=== PATIENT | male | born 1935 | race Caucasian/White ===

== ENCOUNTER → 2016-08-23 | Outpatient (CLI) | payer BC ==
[~2016-08-23] MED LIST: ATOR-14 PO; INDA1TAB3 PO
[2016-08-23 10:28] LABS: HEMATOCRIT 40.4 % (42-52)
[2016-08-23 10:46] LABS: ESTIMATED AVERAGE GLUCOSE 137 mg/dl; HA1C FLAG Normal (Normal)
--- NOTE | 2016-08-29 11:15 | CODING QUERY MEDICAL NECESSITY ---
SUPPORTING DIAGNOSIS NEEDED Dr. Agarwal, A supporting diagnosis is required for the test/procedure performed on this patient in order for us to be reimbursed by the patient's insurance. Please provide a supporting diagnosis for the following test/procedure listed below next to the test name along with your signature. *If there is no additional diagnosis for this patient that would support the following test/procedure please document that below next to the test/procedure. Test(s)/Procedure(s) that require a supporting diagnosis: * [id number] GLYCATED HEMOGLOBIN DIAGNOSIS: DATE OF SERVICE: 08/23/16 Provider Signature: Date: Thank you Colton [facility] Information Management Once completed, please kindly fax back to [phone] For questions please call [phone]
== END | disposition home or self-care (01) ==
LOC: C.LAB1850 09:09
PROVIDERS: ATTEND Internal Medicine
DX: E78.5 Hyperlipidemia, unspecified (principal); R73.9 Hyperglycemia, unspecified

== ENCOUNTER → 2016-11-21 | Outpatient (CLI) | payer BC ==
[2016-11-21 10:39] LABS: BASO % 0.3 %; BASO ABS # 0.02 K/uL (0-0.2); COMPLETE YES; EOS % 2.9 %; HEMATOCRIT 39.9 % (42-52); IG% 0.1 %; LYMPH % 39.5 %; LYMPH ABS # 2.95 K/uL (1.2-3.4); MEAN CELL VOLUME 97.3 fL (80-100); MEAN CORPUSCULAR HEMOGLOBIN 32.4 pg (25-34); MEAN CORPUSCULAR HGB CONC 33.3 g/dl (32-36); NEUT % 48.2 %; PLATELET COUNT 121 K/uL (130-400); WHITE BLOOD COUNT 7.47 K/uL (4.8-10.8)
[2016-11-21 11:16] LABS: ALT/SGPT 28 U/L (12-78); AST/SGOT 35 U/L (15-37); BLOOD UREA NITROGEN 23 mg/dl (7-18); BUN/CREATININE RATIO 14.7 (10-20); CALCIUM 8.5 mg/dl (8.5-10.1); CARBON DIOXIDE 31 mmol/L (21-32); CHLORIDE 107 mmol/L (98-107); GLUCOSE 107 mg/dl (70-99); POTASSIUM 4.1 mmol/L (3.5-5.1); SODIUM 143 mmol/L (136-145)
[2016-11-21 11:27] LABS: CHOLESTEROL 131 mg/dl (0-200); CHOLESTEROL/HDL RATIO 2.8; HDL CHOLESTEROL 46 mg/dl; LDL CHOLESTEROL CALCULATED 65 mg/dl; TRIGLYCERIDES 99 mg/dl (0-150); VERY LOW DENSITY LIPOPROT CALC 20 mg/dl
[2016-11-21 11:33] LABS: ESTIMATED AVERAGE GLUCOSE 137 mg/dl; HA1C FLAG Normal (Normal)
[2016-11-21 12:16] LABS: URINE APPEARANCE CLEAR (CLEAR); URINE BILIRUBIN NEG (NEG); URINE COLOR YELLOW; URINE EPITHELIAL CELL AUTO 0-5 /lpf (0-5); URINE NITRITE NEG (NEG); URINE SPECIFIC GRAVITY 1.013 (1.000-1.030); UROBILINOGEN NEG (NEG)
[2016-11-21 12:21] LABS: MANUAL MICROSCOPIC REQUIRED? NO; REVIEW REQ? NO
--- NOTE | 2016-11-29 06:18 | CODING QUERY MEDICAL NECESSITY ---
CQSUPPORTING DIAGNOSIS NEEDED A supporting diagnosis is required for the test/procedure performed on this patient in order for us to be reimbursed by the patient's insurance. Please provide a supporting diagnosis for the following test/procedure listed below next to the test name along with your signature. *If there is no additional diagnosis for this patient that would support the following test/procedure please document that below next to the test/procedure. Test(s)/Procedure(s) that require a supporting diagnosis: MAHAMED 11/21/16 GLYCATED HEMOGLOBIN TEST Provider Signature: Date: Thank you Est[facility] Information [facility] Once completed, please kindly fax back to [phone] For questions please call [phone]
== END | disposition home or self-care (01) ==
LOC: C.LAB1850 09:39
PROVIDERS: ATTEND Internal Medicine
DX: E78.5 Hyperlipidemia, unspecified (principal); R73.9 Hyperglycemia, unspecified

== ENCOUNTER → 2017-05-30 | Outpatient (CLI) | payer BC ==
[2017-05-30 12:19] LABS: BASO % 0.4 %; BASO ABS # 0.03 K/uL (0-0.2); EOS % 2.5 %; EOS ABS # 0.19 K/uL (0-0.5); HEMATOCRIT 41.6 % (42-52); HEMOGLOBIN 13.9 g/dL (14.0-18.0); IG# 0.02 K/uL (0.00-0.02); LYMPH ABS # 3.58 K/uL (1.2-3.4); MEAN CELL VOLUME 98.1 fL (80-100); MEAN CORPUSCULAR HEMOGLOBIN 32.8 pg (25-34); MEAN CORPUSCULAR HGB CONC 33.4 g/dl (32-36); MEAN PLATELET VOLUME 11.4 fL (7.4-10.4); MONO % 8.8 %; MONO ABS # 0.67 K/uL (0.11-0.59); NEUT ABS # 3.12 K/uL (1.4-6.5); PLATELET COUNT 122 K/uL (130-400); RED CELL DISTRIBUTION WIDTH CV 15.6 % (11.5-14.5); RED CELL DISTRIBUTION WIDTH SD 55.4 fL (36.4-46.3); WHITE BLOOD COUNT 7.61 K/uL (4.8-10.8)
[2017-05-30 12:35] LABS: HEMOGLOBIN A1C 6.3 % (4.5-5.6)
[2017-05-30 12:54] LABS: ALT/SGPT 25 U/L (12-78); AST/SGOT 25 U/L (15-37); BLOOD UREA NITROGEN 32 mg/dl (7-18); CALCIUM 8.9 mg/dl (8.5-10.1); CARBON DIOXIDE 28 mmol/L (21-32); CHOLESTEROL 124 mg/dl (0-200); CREATININE 1.64 mg/dl (0.60-1.40); GLUCOSE 109 mg/dl (70-99); LDL CHOLESTEROL CALCULATED 54 mg/dl; POTASSIUM 4.4 mmol/L (3.5-5.1); SODIUM 139 mmol/L (136-145)
== END | disposition home or self-care (01) ==
LOC: C.LAB1850 10:26
PROVIDERS: ATTEND Internal Medicine
DX: E78.5 Hyperlipidemia, unspecified (principal)

== ENCOUNTER 2018-08-08 20:26 | Inpatient (IN) ==
[2018-08-08 21:06] LABS: Basophils # (auto) 0.05 K/uL (0-0.2); Basophils % (auto) 0.5 %; Eosinophils # (auto) 0.08 K/uL (0-0.5); Eosinophils % (auto) 0.8 %; Hematocrit (blood only) 42.7 % (42-52); Hemoglobin 14.4 g/dL (14.0-18.0); Immature Granulocytes # (auto) 0.03 K/uL (0.00-0.02); Immature Granulocytes % (auto) 0.3 %; Lymphocytes # (auto) 1.82 K/uL (1.2-3.4); Lymphocytes % (auto) 18.6 %; Mean Corpuscular Hgb Conc 33.7 g/dL (32-36); Mean Corpuscular Volume 96.4 fL (80-100); Mean Platelet Volume 10.6 fL (7.4-10.4); Monocytes # (auto) 0.58 K/uL (0.11-0.59); Monocytes % (auto) 5.9 %; Neutrophils # (auto) 7.25 K/uL (1.4-6.5); Neutrophils % (auto) 73.9 %; Platelet Count 129 K/uL (130-400); RDW Coefficient of Variation 14.7 % (11.5-14.5); RDW Standard Deviation 51.3 fL (36.4-46.3); Red Blood Count 4.43 M/uL (4.7-6.1); White Blood Count 9.81 K/uL (4.8-10.8)
[2018-08-08 21:13] LABS: Albumin Level 4.2 gm/dl (3.4-5.0); BUN Creatinine Ratio 21.9 (10-20); Calcium 8.9 mg/dl (8.5-10.1); Creatinine Clr Calc Pharmacy 34.8 ml/min; Est GFR (African American) 37.7; Est GFR (Non-African American) 32.5; Magnesium 2.2 mg/dl (1.8-2.4); Potassium 4.5 mmol/L (3.5-5.1)
--- NOTE | 2018-08-08 21:14 | XRay Report ---
XR chest 1V portable CLINICAL HISTORY: palpitations chest pain COMPARISON STUDY: No previous studies for comparison. FINDINGS: The bones soft tissues and hemidiaphragms are normal. The cardiomediastinal silhouette is n ormal. The lungs are clear. The pulmonary vasculature is normal. IMPRESSION: Negative chest. The above report was generated using voice recognition software. It may contain grammatical, syntax or spelling errors. Electronically signed by: Sukumar Harding M.D. 08/08/2018 9:13 PM
[2018-08-08] MEDS ORDERED: SODIUM CHLORIDE 0.9% 500 ML IV ONE (21:20)
[2018-08-08 21:30] LABS: Albumin Globulin Ratio 1.1 (0.9-2); Globulin 3.7 gm/dl (2.5-4.0); Total Protein 7.9 gm/dl (6.4-8.2); Troponin I 0.087 ng/ml (0-0.045)
[2018-08-08 21:55] LABS: D Dimer 470 ug/L FEU (0-500)
[2018-08-08] MEDS ORDERED: ADENOSINE IV SOLN 3 MG/ML 2 ML VIAL IV STA (22:01)
--- NOTE | 2018-08-08 22:40 | Emergency Department Note ---
Entered by Ja Dutton acting as a scribe for History of Present Illness General Chief complaint: Tachycardia Stated complaint: ELEVATED PULSE Time Seen by Provider: 08/08/18 20:54 Source: patient Limitations: no limitations History of Present Illness Provider complaint: weakness/Tachycardia Onset (ago): hour(s) Location: chest Pain Consistency: + constant Quality: + other (tachycardia) Associated symptoms: + shortness of breath and + weakness Treatments prior to arrival: none The patient is an 83 year old male who presents to the Emergency Room with complaints of constant tachycardia that began this afternoon, a few hours ago. The patient states that over the past couple of days he noticed unusual shortness of breath and fatigue after minimal exertion such as walking up the stairs. This is unusual for him. After eating lunch this afternoon he began to feel generally unwell. A short time after lunch he went outside to do some yard work. He states that he was carrying some sticks around the yard when he began to feel unusual weakness in his legs as well as some shortness of breath. He adds that he would have normally been able to perform these tasks without any trouble. When he went back inside he noticed that his heart rate was unusually fast. He has no history of heart trouble or issues with tachycardia. The patient denies any associated lightheadedness or dizziness. He has not experienced any chest pain or chest pressure. Home Medications Home Medications Medication Instructions Recorded Confirmed Type antiox. [id number] 1 tab PO QAM 08/08/18 08/08/18 History [I-Caps] atorvastatin 20 mg PO HS 08/08/18 08/08/18 History indapamide 1.25 mg PO QAM 08/08/18 08/08/18 History Allergies Allergy/AdvReac Type Severity Reaction Status Date / Time Sulfa (Sulfonamide Allergy Intermediate HIVES Verified 08/08/18 21:35 Antibiotics) Past Med/Surg History Medical History Atrial fibrillation Hyperlipidemia (Chronic) Benign essential hypertension (Chronic) Atrial flutter (Acute) CLL (chronic lymphocytic leukemia) Hemorrhoids Social History Communication Ability: Effective Beliefs That Will Affect Care: None Current Living Situation: Alone current occupational status: retired Other Information That Helps Us Care for You: No Feels Safe at Home: Yes Safety Concerns: Feels Safe At This Time Smoking Status: Never smoker Hx Alcohol Use: Yes Hx Substance Use: No Review of Systems See HPI for pertinent positives & negatives. and A total of 10 systems reviewed and were otherwise negative Physical Exam Vital Signs Vital Signs - 24 hr 08/08/18 20:30 08/08/18 20:34 08/08/18 22:24 Temperature 36.5 C Temperature Source Oral Sepsis Recent Fever Within 48 Hours No Sepsis New/Unexplained Change in Mental Status No Sepsis Action Taken by Nursing No Action Required Pulse Rate 130 H Pulse Rate [Right] 126 H Pulse Rhythm Regular Pulse Rhythm [Right] Regular Pulse Strength Normal Pulse Strength [Right] Normal Respiratory Rate 19 18 Respiratory Effort / Characteristics Non-Labored Spontaneous Non-Labored Spontaneous Respiratory Depth Normal Normal Respiratory Pattern Regular Blood Pressure 141/73 H Blood Pressure [Left Arm] Blood Pressure [Right Arm] 162/101 H Blood Pressure Mean 95 Blood Pressure Mean [Left Arm] Blood Pressure Mean [Right Arm] 121 Blood Pressure Position Sitting Blood Pressure Position [Left Arm] Blood Pressure Position [Right Arm] Pulse Oximetry 97 98 Oxygen Delivery Method Room Air Room Air Nasal Cannula Oxygen Flow Rate 2 08/08/18 23:00 08/09/18 00:09 08/09/18 00:45 Temperature Temperature Source Sepsis Recent Fever Within 48 Hours Sepsis New/Unexplained Change in Mental Status Sepsis Action Taken by Nursing Pulse Rate Pulse Rate [Right] 126 H 128 H 128 H Pulse Rhythm Pulse Rhythm [Right] Regular Pulse Strength Pulse Strength [Right] Normal Respiratory Rate 16 20 16 Respiratory Effort / Characteristics Non-Labored Spontaneous Non-Labored Spontaneous Respiratory Depth Normal Normal Normal Respiratory Pattern Regular Blood Pressure Blood Pressure [Left Arm] Blood Pressure [Right Arm] 146/87 H 123/79 120/81 Blood Pressure Mean Blood Pressure Mean [Left Arm] Blood Pressure Mean [Right Arm] 106 93 94 Blood Pressure Position Blood Pressure Position [Left Arm] Blood Pressure Position [Right Arm] Pulse Oximetry 98 98 98 Oxygen Delivery Method Room Air Nasal Cannula Room Air Oxygen Flow Rate 2 08/09/18 01:00 08/09/18 01:27 08/09/18 02:16 Temperature 36.8 C Temperature Source Oral Sepsis Recent Fever Within 48 Hours Sepsis New/Unexplained Change in Mental Status Sepsis Action Taken by Nursing Pulse Rate 132 H Pulse Rate [Right] 135 H Pulse Rhythm Pulse Rhythm [Right] Irregular Pulse Strength Pulse Strength [Right] Normal Respiratory Rate 16 Respiratory Effort / Characteristics Non-Labored Respiratory Depth Normal Respiratory Pattern Blood Pressure 116/73 Blood Pressure [Left Arm] Blood Pressure [Right Arm] 155/91 H 87/60 L Blood Pressure Mean Blood Pressure Mean [Left Arm] Blood Pressure Mean [Right Arm] 112 69 Blood Pressure Position Blood Pressure Position [Left Arm] Blood Pressure Position [Right Arm] Lying Pulse Oximetry 94 Oxygen Delivery Method Room Air Oxygen Flow Rate 08/09/18 02:30 08/09/18 03:15 08/09/18 03:48 Temperature 36.9 C Temperature Source Oral Sepsis Recent Fever Within 48 Hours Sepsis New/Unexplained Change in Mental Status Sepsis Action Taken by Nursing Pulse Rate Pulse Rate [Right] 136 H Pulse Rhythm Pulse Rhythm [Right] Pulse Strength Pulse Strength [Right] Respiratory Rate 15 Respiratory Effort / Characteristics Respiratory Depth Respiratory Pattern Blood Pressure Blood Pressure [Left Arm] Blood Pressure [Right Arm] 106/77 120/48 L 83/59 L Blood Pressure Mean Blood Pressure Mean [Left Arm] Blood Pressure Mean [Right Arm] 86 72 67 Blood Pressure Position Blood Pressure Position [Left Arm] Blood Pressure Position [Right Arm] Lying Pulse Oximetry 93 Oxygen Delivery Method Room Air Oxygen Flow Rate 08/09/18 04:00 08/09/18 04:15 08/09/18 04:30 Temperature Temperature Source Sepsis Recent Fever Within 48 Hours Sepsis New/Unexplained Change in Mental Status Sepsis Action Taken by Nursing Pulse Rate Pulse Rate [Right] Pulse Rhythm Pulse Rhythm [Right] Pulse Strength Pulse Strength [Right] Respiratory Rate Respiratory Effort / Characteristics Respiratory Depth Respiratory Pattern Blood Pressure Blood Pressure [Left Arm] Blood Pressure [Right Arm] 104/67 98/57 L 99/77 L Blood Pressure Mean Blood Pressure Mean [Left Arm] Blood Pressure Mean [Right Arm] 79 70 84 Blood Pressure Position Blood Pressure Position [Left Arm] Blood Pressure Position [Right Arm] Pulse Oximetry Oxygen Delivery Method Oxygen Flow Rate 08/09/18 04:45 08/09/18 05:15 08/09/18 06:00 Temperature Temperature Source Sepsis Recent Fever Within 48 Hours Sepsis New/Unexplained Change in Mental Status Sepsis Action Taken by Nursing Pulse Rate Pulse Rate [Right] Pulse Rhythm Pulse Rhythm [Right] Pulse Strength Pulse Strength [Right] Respiratory Rate Respiratory Effort / Characteristics Respiratory Depth Respiratory Pattern Blood Pressure Blood Pressure [Left Arm] Blood Pressure [Right Arm] 103/65 86/55 L 95/59 L Blood Pressure Mean Blood Pressure Mean [Left Arm] Blood Pressure Mean [Right Arm] 77 65 71 Blood Pressure Position Blood Pressure Position [Left Arm] Blood Pressure Position [Right Arm] Pulse Oximetry Oxygen Delivery Method Oxygen Flow Rate 08/09/18 06:30 08/09/18 07:06 08/09/18 07:35 Temperature 37.2 C Temperature Source Oral Sepsis Recent Fever Within 48 Hours Sepsis New/Unexplained Change in Mental Status Sepsis Action Taken by Nursing Pulse Rate Pulse Rate [Right] 115 H 118 H Pulse Rhythm Pulse Rhythm [Right] Pulse Strength Pulse Strength [Right] Respiratory Rate 18 Respiratory Effort / Characteristics Respiratory Depth Respiratory Pattern Blood Pressure Blood Pressure [Left Arm] Blood Pressure [Right Arm] 115/79 82/55 L 102/76 Blood Pressure Mean Blood Pressure Mean [Left Arm] Blood Pressure Mean [Right Arm] 91 64 84 Blood Pressure Position Blood Pressure Position [Left Arm] Blood Pressure Position [Right Arm] Lying Lying Pulse Oximetry 97 Oxygen Delivery Method Room Air Oxygen Flow Rate 08/09/18 08:00 08/09/18 09:00 08/09/18 10:00 Temperature Temperature Source Sepsis Recent Fever Within 48 Hours Sepsis New/Unexplained Change in Mental Status Sepsis Action Taken by Nursing Pulse Rate 126 H Pulse Rate [Right] 122 H 128 H 127 H Pulse Rhythm Pulse Rhythm [Right] Irregular Irregular Irregular Pulse Strength Pulse Strength [Right] Normal Normal Normal Respiratory Rate 18 Respiratory Effort / Characteristics Non-Labored Spontaneous Respiratory Depth Normal Respiratory Pattern Regular Blood Pressure Blood Pressure [Left Arm] 106/82 110/78 116/61 Blood Pressure [Right Arm] Blood Pressure Mean Blood Pressure Mean [Left Arm] 90 88 79 Blood Pressure Mean [Right Arm] Blood Pressure Position Blood Pressure Position [Left Arm] Sitting Blood Pressure Position [Right Arm] Pulse Oximetry Oxygen Delivery Method Room Air Oxygen Flow Rate 08/09/18 12:53 Temperature 36.3 C L Temperature Source Oral Sepsis Recent Fever Within 48 Hours Sepsis New/Unexplained Change in Mental Status Sepsis Action Taken by Nursing Pulse Rate Pulse Rate [Right] 120 H Pulse Rhythm Pulse Rhythm [Right] Pulse Strength Pulse Strength [Right] Respiratory Rate 15 Respiratory Effort / Characteristics Respiratory Depth Respiratory Pattern Blood Pressure Blood Pressure [Left Arm] 130/84 Blood Pressure [Right Arm] Blood Pressure Mean Blood Pressure Mean [Left Arm] 99 Blood Pressure Mean [Right Arm] Blood Pressure Position Blood Pressure Position [Left Arm] Sitting Blood Pressure Position [Right Arm] Pulse Oximetry 97 Oxygen Delivery Method Room Air Oxygen Flow Rate GENERAL: alert, well appearing, well nourished, no distress, non-toxic EYE EXAM: normal conjunctiva, PERRL and EOM's grossly intact OROPHARYNX: no exudate, no erythema, lips, buccal mucosa, and tongue normal and mucous membranes are moist NECK: supple, no nuchal rigidity, no adenopathy, non-tender LUNGS: Clear to auscultation. Normal chest wall mechanics HEART: Tachycardic and regular. No murmurs, S1 normal and S2 normal ABDOMEN: abdomen soft, non-tender, normo-active bowel sounds, no masses, no rebound or guarding. BACK: Back is symmetrical on inspection and there is no deformity, no midline tenderness, no CVA tenderness. SKIN: no rashes and no bruising UPPER EXTREMITIES: upper extremities are grossly normal. FROM, nml pulses b/l. LOWER EXTREMITIES: No pitting edema. FROM, nml pulses b/l. NEURO EXAM: Normal sensorium, cranial nerves II-XII grossly intact, normal speech, no gross weakness of arms, no gross weakness of legs. Course 2100: Past medical records reviewed. The patient was evaluated in room A9A, and a complete history and physical examination were performed. 2203: I administered adenosine at this time. Pt given 6 mg which only slowed HR into 80's and then 12 mg which slowed further and on tele pt had appearance of flutter waves. HR then became increased again, initially into 140's and then back to 128-130. 2235: Discussed with pt need for rate control, cardiology eval, and monitoring given elevated troponin. Pt verbalized understanding and was in agreement with plan. 2250: Discussed with Dr. Esparza. Agrees with cardizem drip, no bolus. Recommends eliquis 2.5 mg BID. Echo to be done in the morning. 2340: Pt well appearing. HR still elevated, will increase cardizem drip. Consultations Consultation #1: Discussed with Dr. Esparza. Time: 22:50 Administered Medications Apixaban (Eliquis) 2.5 mg PO BID NELLI Stop: 09/07/18 23:14 Last Admin: 08/09/18 09:35 Dose: 2.5 mg Documented by: [id number] Admin: 08/09/18 00:09 Dose: 2.5 mg Documented by: [id number] Diltiazem HCl 125 mg/ Dextrose 125 mls @ 0 mls/hr IV .Q0M NELLI; Protocol Stop: 09/07/18 22:29 Last Titration: 08/09/18 05:53 Dose: 0 mg/hr, 0 mls/hr Documented by: [id number] Titration: 08/09/18 05:15 Dose: 0 mg/hr, 0 mls/hr Documented by: [id number] Titration: 08/09/18 03:45 Dose: 5 mg/hr, 5 mls/hr Documented by: [id number] Titration: 08/09/18 03:00 Dose: 10 mg/hr, 10 mls/hr Documented by: [id number] Titration: 08/09/18 02:15 Dose: 5 mg/hr, 5 mls/hr Documented by: [id number] Admin: 08/09/18 00:05 Dose: 15 mg/hr, 15 mls/hr Documented by: [id number] Cosigned by: [id number] Titration: 08/09/18 00:05 Dose: 10 mg/hr, 10 mls/hr Documented by: [id number] Cosigned by: [id number] Titration: 08/08/18 23:34 Dose: 10 mg/hr, 10 mls/hr Documented by: [id number] Admin: 08/08/18 23:01 Dose: 5 mg/hr, 5 mls/hr Documented by: [id number] Cosigned by: [id number] Sodium Chloride (Nss 1000ml) 1,000 mls @ 80 mls/hr IV .[id number] NELLI Stop: 08/10/18 01:10 Last Admin: 08/09/18 14:02 Dose: 80 mls/hr Documented by: [id number] Infusion: 08/09/18 13:51 Dose: 80 mls/hr Documented by: [id number] Infusion: 08/09/18 07:00 Dose: 80 mls/hr Documented by: [id number] Admin: 08/09/18 01:20 Dose: 80 mls/hr Documented by: [id number] Amiodarone HCl/Dextrose (Nexterone / D5w) 360 mg in 200 mls @ 16.7 mls/hr IV .[id number] NELLI Stop: 09/08/18 05:44 Last Infusion: 08/09/18 07:00 Dose: 16.7 mls/hr Documented by: [id number] Cosigned by: [id number] Admin: 08/09/18 04:45 Dose: 16.7 mls/hr Documented by: [id number] Cosigned by: [id number] Calcium Gluconate 1,000 mg/ (Sodium Chloride) 60 mls @ 240 mls/hr IV TODAY@1100 NELLI Stop: 09/08/18 10:59 Last Infusion: 08/09/18 11:22 Dose: 0 mls/hr Documented by: [id number] Admin: 08/09/18 11:07 Dose: 240 mls/hr Documented by: [id number] Indapamide (Lozol) 1.25 mg PO QAM NELLI Stop: 09/08/18 08:59 Last Admin: 08/09/18 09:38 Dose: Not Given Documented by: [id number] Psyllium Hydrophilic Mucilloid (Metamucil) 1 pkt PO DAILY PRN PRN Reason: Constipation Stop: 09/08/18 09:35 Last Admin: 08/09/18 10:42 Dose: 1 pkt Documented by: [id number] Discontinued Medications Adenosine (Adenosine) 6 mg IV NOW STA Stop: 08/08/18 22:02 Last Admin: 08/08/18 22:24 Dose: 6 mg Documented by: [id number] Sodium Chloride (Nss) 500 mls @ 999 mls/hr IV .Q31M ONE Stop: 08/08/18 21:50 Last Infusion: 08/08/18 21:52 Dose: 0 mls/hr Documented by: [id number] Admin: 08/08/18 21:21 Dose: 999 mls/hr Documented by: [id number] Metoprolol Tartrate (Lopressor) 2.5 mg IV NOW STA Stop: 08/09/18 01:15 Last Admin: 08/09/18 01:27 Dose: 2.5 mg Documented by: [id number] Medical Decision Making Differential Diagnosis Differential diagnosis: Etiologies such as shingles, musculoskeletal pain, pericarditis, myocarditis, cardiac ischemia, pericardial tamponade, pneumonia, pneumothorax, pleural effusion, hemothorax, pleurisy, aortic pathology, pulmonary embolism, intra- abdominal process, as well as others were considered. Medical Records Attestation: I reviewed the patient's medical records. Home Medications Current Medication List: was personally reviewed by me Laboratory Data Attestation: I reviewed the patient's lab results. Result diagrams: 08/09/18 07:57 08/09/18 01:42 Lab Results 08/08/18 08/08/18 08/08/18 Range/Units 20:40 20:40 20:40 WBC 9.81 (4.8-10.8) K/uL RBC 4.43 L (4.7-6.1) M/uL Hgb 14.4 (14.0-18.0) g/dL Hct 42.7 (42-52) % MCV 96.4 (80-100) fL MCH 32.5 (25-34) pg MCHC 33.7 (32-36) g/dL RDW Std Deviation 51.3 H (36.4-46.3) fL RDW Coeff of Gilbert 14.7 H (11.5-14.5) % Plt Count 129 L (130-400) K/uL MPV 10.6 H (7.4-10.4) fL Immature Gran % (Auto) 0.3 % Neut % (Auto) 73.9 % Lymph % (Auto) 18.6 % [place] % (Auto) 5.9 % Eos % (Auto) 0.8 % Baso % (Auto) 0.5 % Immature Gran # (Auto) 0.03 H (0.00-0.02) K/uL Neut # (Auto) 7.25 H (1.4-6.5) K/uL Lymph # (Auto) 1.82 (1.2-3.4) K/uL [place] # (Auto) 0.58 (0.11-0.59) K/uL Eos # (Auto) 0.08 (0-0.5) K/uL Baso # (Auto) 0.05 (0-0.2) K/uL PT (9.0-12.0) Seconds INR (0.9-1.1) D-Dimer 470 (0-500) ug/L FEU Sodium 138 (136-145) mmol/L Potassium 4.5 (3.5-5.1) mmol/L Chloride 104 (98-107) mmol/L Carbon Dioxide 29 (21-32) mmol/L Anion Gap 5.0 (3-11) BUN 41 H (7-18) mg/dl Creatinine 1.87 H (0.6-1.4) mg/dl Est Cr Clr Drug Dosing 34.8 ml/min Est GFR ( Amer) 37.7 Est GFR (Non-Af Amer) 32.5 BUN/Creatinine Ratio 21.9 H (10-20) Glucose 191 H (70-99) mg/dl Estimat Average Glucose mg/dl Hemoglobin A1c (4.5-5.6) % Calcium 8.9 (8.5-10.1) mg/dl Ionized Calcium (1.12-1.32) mmol/L Magnesium 2.2 (1.8-2.4) mg/dl Total Bilirubin 1.0 (0.2-1) mg/dl AST 34 (15-37) U/L ALT 25 (12-78) U/L Alkaline Phosphatase 105 (45-117) U/L Troponin I 0.087 H* (0-0.045) ng/ml NT-Pro-B Natriuret Pep 1203 (0-1800) pg/ml Total Protein 7.9 (6.4-8.2) gm/dl Albumin 4.2 (3.4-5.0) gm/dl Globulin 3.7 (2.5-4.0) gm/dl Albumin/Globulin Ratio 1.1 (0.9-2) Lipase 237 (73-393) U/L TSH 3.350 (0.300-4.500) uIu/ml Urine Color Urine Appearance (Clear) Urine pH (4.5-7.5) Ur Specific [place] (1.000-1.030) Urine Protein (Negative) Urine Glucose (UA) (Negative) Urine Ketones (Negative) Urine Blood (Negative) Urine Nitrite (Negative) Urine Bilirubin (Negative) Urine Urobilinogen (Negative) Ur Leukocyte Esterase (Negative) 08/09/18 08/09/18 08/09/18 Range/Units 01:42 01:42 01:42 WBC 10.13 (4.8-10.8) K/uL RBC 4.07 L (4.7-6.1) M/uL Hgb 13.1 L (14.0-18.0) g/dL Hct 39.3 L (42-52) % MCV 96.6 (80-100) fL MCH 32.2 (25-34) pg MCHC 33.3 (32-36) g/dL RDW Std Deviation 51.2 H (36.4-46.3) fL RDW Coeff of Gilbert 14.7 H (11.5-14.5) % Plt Count 120 L (130-400) K/uL MPV 10.4 (7.4-10.4) fL Immature Gran % (Auto) 0.2 % Neut % (Auto) 69.4 % Lymph % (Auto) 23.5 % [place] % (Auto) 5.8 % Eos % (Auto) 0.8 % Baso % (Auto) 0.3 % Immature Gran # (Auto) 0.02 (0.00-0.02) K/uL Neut # (Auto) 7.03 H (1.4-6.5) K/uL Lymph # (Auto) 2.38 (1.2-3.4) K/uL [place]ade # (Auto) 0.59 (0.11-0.59) K/uL Eos # (Auto) 0.08 (0-0.5) K/uL Baso # (Auto) 0.03 (0-0.2) K/uL PT 11.4 (9.0-12.0) Seconds INR 1.1 (0.9-1.1) D-Dimer (0-500) ug/L FEU Sodium 141 (136-145) mmol/L Potassium 3.9 (3.5-5.1) mmol/L Chloride 107 (98-107) mmol/L Carbon Dioxide 29 (21-32) mmol/L Anion Gap 5.0 (3-11) BUN 37 H (7-18) mg/dl Creatinine 1.64 H (0.6-1.4) mg/dl Est Cr Clr Drug Dosing 39.7 ml/min Est GFR ( Amer) 44.2 Est GFR (Non-Af Amer) 38.1 BUN/Creatinine Ratio 22.5 H (10-20) Glucose 131 H (70-99) mg/dl Estimat Average Glucose mg/dl Hemoglobin A1c (4.5-5.6) % Calcium 8.0 L (8.5-10.1) mg/dl Ionized Calcium (1.12-1.32) mmol/L Magnesium (1.8-2.4) mg/dl Total Bilirubin (0.2-1) mg/dl AST (15-37) U/L ALT (12-78) U/L Alkaline Phosphatase (45-117) U/L Troponin I 0.156 H* (0-0.045) ng/ml NT-Pro-B Natriuret Pep (0-1800) pg/ml Total Protein (6.4-8.2) gm/dl Albumin (3.4-5.0) gm/dl Globulin (2.5-4.0) gm/dl Albumin/Globulin Ratio (0.9-2) Lipase (73-393) U/L TSH (0.300-4.500) uIu/ml Urine Color Urine Appearance (Clear) Urine pH (4.5-7.5) Ur Specific [place] (1.000-1.030) Urine Protein (Negative) Urine Glucose (UA) (Negative) Urine Ketones (Negative) Urine Blood (Negative) Urine Nitrite (Negative) Urine Bilirubin (Negative) Urine Urobilinogen (Negative) Ur Leukocyte Esterase (Negative) 08/09/18 08/09/18 08/09/18 Range/Units 07:57 07:57 07:57 WBC 9.87 (4.8-10.8) K/uL RBC 4.07 L (4.7-6.1) M/uL Hgb 13.3 L (14.0-18.0) g/dL Hct 39.2 L (42-52) % MCV 96.3 (80-100) fL MCH 32.7 (25-34) pg MCHC 33.9 (32-36) g/dL RDW Std Deviation 51.7 H (36.4-46.3) fL RDW Coeff of Gilbert 14.8 H (11.5-14.5) % Plt Count 107 L (130-400) K/uL MPV 9.6 (7.4-10.4) fL Immature Gran % (Auto) 0.2 % Neut % (Auto) 65.4 % Lymph % (Auto) 26.2 % Me[place] % (Auto) 7.0 % Eos % (Auto) 1.0 % Baso % (Auto) 0.2 % Immature Gran # (Auto) 0.02 (0.00-0.02) K/uL Neut # (Auto) 6.45 (1.4-6.5) K/uL Lymph # (Auto) 2.59 (1.2-3.4) K/uL [place] # (Auto) 0.69 H (0.11-0.59) K/uL Eos # (Auto) 0.10 (0-0.5) K/uL Baso # (Auto) 0.02 (0-0.2) K/uL PT (9.0-12.0) Seconds INR (0.9-1.1) D-Dimer (0-500) ug/L FEU Sodium (136-145) mmol/L Potassium (3.5-5.1) mmol/L Chloride (98-107) mmol/L Carbon Dioxide (21-32) mmol/L Anion Gap (3-11) BUN (7-18) mg/dl Creatinine (0.6-1.4) mg/dl Est Cr Clr Drug Dosing ml/min Est GFR ( Amer) Est GFR (Non-Af Amer) BUN/Creatinine Ratio (10-20) Glucose (70-99) mg/dl Estimat Average Glucose 140 mg/dl Hemoglobin A1c 6.5 H (4.5-5.6) % Calcium (8.5-10.1) mg/dl Ionized Calcium (1.12-1.32) mmol/L Magnesium (1.8-2.4) mg/dl Total Bilirubin (0.2-1) mg/dl AST (15-37) U/L ALT (12-78) U/L Alkaline Phosphatase (45-117) U/L Troponin I 0.140 H* (0-0.045) ng/ml NT-Pro-B Natriuret Pep (0-1800) pg/ml Total Protein (6.4-8.2) gm/dl Albumin (3.4-5.0) gm/dl Globulin (2.5-4.0) gm/dl Albumin/Globulin Ratio (0.9-2) Lipase (73-393) U/L TSH (0.300-4.500) uIu/ml Urine Color Urine Appearance (Clear) Urine pH (4.5-7.5) Ur Specific [place] (1.000-1.030) Urine Protein (Negative) Urine Glucose (UA) (Negative) Urine Ketones (Negative) Urine Blood (Negative) Urine Nitrite (Negative) Urine Bilirubin (Negative) Urine Urobilinogen (Negative) Ur Leukocyte Esterase (Negative) 03/21/19 03/21/19 Range/Units 08:31 14:15 WBC (4.8-10.8) K/uL RBC (4.7-6.1) M/uL Hgb (14.0-18.0) g/dL Hct (42-52) % MCV (80-100) fL MCH (25-34) pg MCHC (32-36) g/dL RDW Std Deviation (36.4-46.3) fL RDW Coeff of Gilbert (11.5-14.5) % Plt Count (130-400) K/uL MPV (7.4-10.4) fL Immature Gran % (Auto) % Neut % (Auto) % Lymph % (Auto) % [place] % (Auto) % Eos % (Auto) % Baso % (Auto) % Immature Gran # (Auto) (0.00-0.02) K/uL Neut # (Auto) (1.4-6.5) K/uL Lymph # (Auto) (1.2-3.4) K/uL [place] # (Auto) (0.11-0.59) K/uL Eos # (Auto) (0-0.5) K/uL Baso # (Auto) (0-0.2) K/uL PT (9.0-12.0) Seconds INR (0.9-1.1) D-Dimer (0-500) ug/L FEU Sodium (136-145) mmol/L Potassium (3.5-5.1) mmol/L Chloride (98-107) mmol/L Carbon Dioxide (21-32) mmol/L Anion Gap (3-11) BUN (7-18) mg/dl Creatinine (0.6-1.4) mg/dl Est Cr Clr Drug Dosing ml/min Est GFR ( Amer) Est GFR (Non-Af Amer) BUN/Creatinine Ratio (10-20) Glucose (70-99) mg/dl Estimat Average Glucose mg/dl Hemoglobin A1c (4.5-5.6) % Calcium (8.5-10.1) mg/dl Ionized Calcium 1.03 L (1.12-1.32) mmol/L Magnesium (1.8-2.4) mg/dl Total Bilirubin (0.2-1) mg/dl AST (15-37) U/L ALT (12-78) U/L Alkaline Phosphatase (45-117) U/L Troponin I (0-0.045) ng/ml NT-Pro-B Natriuret Pep (0-1800) pg/ml Total Protein (6.4-8.2) gm/dl Albumin (3.4-5.0) gm/dl Globulin (2.5-4.0) gm/dl Albumin/Globulin Ratio (0.9-2) Lipase (73-393) U/L TSH (0.300-4.500) uIu/ml Urine Color Yellow Urine Appearance Clear (Clear) Urine pH 6.0 (4.5-7.5) Ur Specific [place] 1.012 (1.000-1.030) Urine Protein Negative (Negative) Urine Glucose (UA) Negative (Negative) Urine Ketones Negative (Negative) Urine Blood Negative (Negative) Urine Nitrite Negative (Negative) Urine Bilirubin Negative (Negative) Urine Urobilinogen Negative (Negative) Ur Leukocyte Esterase Negative (Negative) Imaging Data Attestation: I personally reviewed and interpreted this imaging study as follows: Radiologist's Impression: XR chest 1V portable CLINICAL HISTORY: palpitations chest pain COMPARISON STUDY: No previous studies for comparison. FINDINGS: The bones soft tissues and hemidiaphragms are normal. The cardiomediastinal silhouette is normal. The lungs are clear. The pulmonary vasculature is normal. IMPRESSION: Negative chest. The above report was generated using voice recognition software. It may contain grammatical, syntax or spelling errors. Electronically signed by: Sukumar Harding M.D. 08/08/2018 9:13 PM ECG Data Attestation: I personally reviewed and interpreted this ECG as follows: Indication: tachycardia Rate (beats per minute): 127 Rhythm: atrial flutter Findings: no acute ischemic change and no ectopy Blood Pressure Blood Pressure Findings: Elevated blood pressure Blood Pressure Disposition: further management by hospitalist MONO Sanchez Patient here well-appearing despite complaints. Patient found to have persistent tachycardia between 127-130. No change after 750 mL's of fluid. We avoided aggressive volume resuscitation as we did not know the patient's cardiac status otherwise as he has never had any issue or seen a bilingual secretary. Given patient's labs otherwise unremarkable and heart rate did not change, I became more suspicious that this was a flutter. Patient given adenosine 6 mg, and then 12 mg to attempt to convert if this was a form of SVT versus to help diagnose my suspicion of an underlying atrial flutter. Flutter waves noted, however no conversion otherwise and patient's heart rate resumed its tachycardic response. Patient then started on Cardizem drip. Case discussed with Dr. Esparza as a precaution as well as anticoagulation. We did discuss electrical cardioversion, however again given patient's advanced age and a known history, we opted for medical management until patient could have an echo this morning. I do feel patient could be electrically cardioverted, however in discussion with this at bedside, patient hesitant and more comfortable with use of medications in the short-term until additional cardiology evaluation could be performed. Patient with no other acute lab abnormalities, anemia, or thyroid dysfunction. Patient does have a history of chronic kidney disease and creatinine tonight was mildly elevated compared to baseline of 1.6. I do not suspect occult infectious etiology, acute vascular pathology, PE. I feel the patient's elevated troponin likely secondary to demand due to tachycardia for most of the day. I do not suspect ACS primarily. Patient was made aware of all results and was in agreement with plan. Impression & Plan Palpitations, Atrial flutter, Elevated troponin, NAJERA (dyspnea on exertion) Critical Care Time I have personally spent greater than 48 minutes of critical care time in the direct management of this patient. This includes bedside care, interpretation of diagnostic studies, and testing, discussion with consultants, patient, and family members, and other required patient management activities. This 48 minutes is in excess of all separately billable procedures. Critical Care Time: Yes Total Critical Care Time: 48 Discharge Plan Visit Data *Final* Discharge Date/Time: 08/09/18 00:47 Chief Complaint: Tachycardia Stated Complaint: ELEVATED PULSE ED Provider: Annamarie Quiroz Discharge Problem: Palpitations, Atrial flutter, Elevated troponin, NAJERA (dyspnea on exertion) Patient Disposition: Admitted As Inpatient Condition: Good Discharge Instructions Interventions: ED Discharge Assessment Last Done: 08/09/18 00:47 Discharge Problem: Atrial flutter Qualifiers: Atrial flutter type: unspecified Qualified Code(s): I48.92 - Unspecified atrial flutter The scribe's documentation has been prepared under my direction and personally reviewed by me in its entirety. I confirm that the note above accurately reflects all work, treatment, procedures, and medical decision making performed by me.
[2018-08-08] MEDS: dilTIAZem HCl 125 MG in DEXTROSE 5% 100 ML IV SCH (23:01)
--- NOTE | 2018-08-08 23:18 | History & Physical Report ---
Date of Service August 08, 2018 Assessment & Plan (1) Elevated troponin: 83M here for tachycardia, NAJERA and found to have acute on chronic kidney injury and elevated troponin. Assessment: Sinus tachycardia/flutter in the setting of AK I and elevated troponin -Etiology unknown although differential includes arrhythmia, wall motion abnormalities, cardiac ischemia, pulmonary embolism. -Patient is not anemic H&H 14.4/42.7, platelets 129, chemistry profile remarkable for elevated BUN creatinine 41/1.87. Hyperglycemia. Magnesium 2.2. Potassium 4.5. No transaminitis. Elevated troponin 0 0.087. Elevated BNP 1203. Negative d-dimer. Lipase and TSH normal. Chest x-ray unremarkable. -4.5 points on Well's score -- denies prolonged immobility, no unilateral leg swelling, although has h/o excised breast cancer (in remission) and lymphoid. -could consider VQ scan (given renal insufficiency) although patient is currently on Eliquis, so would not necessarily change director at this time. Plan: -Admit to tele -cont cardiology recommendations: Eliquis BID -TTE in am -Consult cardiology in place, -continue cardizem drip FEN/GI: heart healthy diet, gentle maintenance fluids for APPLE NSS at 80ml/hr. DVT ppx: eliquis starting here CODE STATUS: FULL as discussed with pt DISPO: tele (2) NAJERA (dyspnea on exertion): Oxygen as needed (3) Palpitations: As above (4) Tachycardia: As above (5) Acute on chronic renal insufficiency: Console Attendant 1.87 today, up from 1.6-1.77 -gentle hydration as above -pt admits he does not hydrate well due to nocturia and insomnia (6) Benign essential hypertension: Continue home indapamide 1.25 mg p.o. every morning (7) Hyperlipidemia: Continue home atorvastatin 20 mg History of Present Illness Primary Care Provider: Partha Agarwal MD This is an 83-year-old male who was in his usual state of health earlier today when he says he was working in his yard and began to have a queasy feeling in his upper stomach. He says he went about his yard work, lifting a moderate amount of weight, walking for 50 feet with it and then having to stop because of feeling very tired and restless. He also complained of palpitations. He says he felt his own pulse and noted that it was fast although does not know the exact rate. He says he also felt short of breath with climbing the stairs which is unlike him. He says that he this has happened to him before about a year ago he says after night of being out with friends, he came home says he felt some sensation of palpitations and checked his pulse at that time and also felt that it was very fast. He denies overt chest pain, syncope or visual change or headache. He also denies prolonged immobility or recent orthopedic surgery, cough or hemoptysis. Denies any leg swelling. PMH: 1. Hyperlipidemia -on atorvastatin 20 mg 2. hypertension -on indapamide 1.25 mg 3. Chronic lymphoid leukemia in remission 4. History of breast cancer, status post excision of the lesions from the right breast. 5. Hyperglycemia-last A1c May 2018 6.5. Not currently on medications for this. 6. Stable chronic kidney disease 3B PSH 1. Knee arthroplasty Social history: Lives alone, for 12 years. Denies smoking, drug use, alcohol use. ED course: Tachycardic up to 130. Blood pressure 141/73, then 162/101. Adenosine was given initially 6 mg and then 12 mg which initially slowed on the heart rate into the 80s but then went back up to 130. ED doctor discussed with Dr. Esparza and recommendation was made for Cardizem drip no bolus, Eliquis 2.5 mg twice daily, echo in the morning. Initial labs were remarkable for: Patient is not anemic H&H 14.4/42.7, platelets 129, chemistry profile remarkable for elevated BUN creatinine 41/1.87. Hyperglycemia. Magnesium 2.2. Potassium 4.5. No transaminitis. Elevated troponin 0 0.087. Elevated BNP 1203. Negative d-dimer. Lipase and TSH normal. Chest x-ray unremarkable. Allergies Allergy/AdvReac Type Severity Reaction Status Date / Time Sulfa (Sulfonamide Allergy Intermediate HIVES Verified 08/08/18 21:35 Antibiotics) Home Medications Home Medications Medication Instructions Recorded Confirmed Type I-Caps 1 tab PO QAM 08/08/18 08/08/18 History atorvastatin 20 mg PO HS 08/08/18 08/08/18 History indapamide 1.25 mg PO QAM 08/08/18 08/08/18 History apixaban [Eliquis] 2.5 mg PO BID #60 tab 08/10/18 Rx metoprolol succinate [Toprol XL] 25 mg PO DAILY #30 tab 08/10/18 Rx Past Med/Surg History Medical History Atrial fibrillation Hyperlipidemia (Chronic) Benign essential hypertension (Chronic) Atrial flutter (Acute) CLL (chronic lymphocytic leukemia) Hemorrhoids Social History Preferred Language: Palauan Beliefs That Will Affect Care: None Current Living Situation: Alone current occupational status: retired Other Information That Helps Us Care for You: No Feels Safe at Home: Yes Safety Concerns: Feels Safe At This Time Smoking Status: Never smoker Hx Alcohol Use: Yes Hx Substance Use: No Physical Exam Vital Signs (Past 24 Hours): Last Vital Signs Temp 36.5 C 08/08/18 20:30 Pulse 126 H 08/08/18 22:24 Resp 18 08/08/18 22:24 BP 162/101 H 08/08/18 22:24 Pulse Ox 98 08/08/18 22:24 Physical Exam: Vitals noted as above and within normal limits with the exception of hypertension, tachycardia. GENERAL: Awake, alert to person, place, and time, nontoxic-appearing, in no distress. Patient's friend is at the bedside. HENT: Normocephalic, atraumatic. Nasal cannula in place. Mucus membranes appear dry. EYES: Normal conjunctiva. Sclera non-icteric. EOMI. NECK: Supple. Full range of motion. No JVD RESPIRATORY: Faint crackles at the bases.. Normal work of breathing. Nasal cannula in place. CARDIAC: Tachycardic rate.. Extremities warm and well perfused, 2+ radial pulses bilaterally; tibial pulses difficult to palpate. ABDOMEN: Soft, non-distended. No tenderness to palpation in all four quadrants. No rebound or guarding. No masses. Bowel sounds are normal. LOWER EXTREMITIES: Inspection of calves reveal equal size bilaterally. They are non-tender. No edema. No discoloration. NEURO: No focal gross focal motor deficits noted. Sensation in tact. CN II-XII grossly in tact. SKIN: Rash not present. No jaundice noted. Significant lesions not present. PSYCH: Appropriate mood and affect. Cooperative. Exam as done by Nitza Kirkland MD, [employer] Architect. Results & Data Laboratory Results 08/08/18 08/08/18 08/08/18 Range/Units 20:40 20:40 20:40 WBC 9.81 (4.8-10.8) K/uL RBC 4.43 L (4.7-6.1) M/uL Hgb 14.4 (14.0-18.0) g/dL Hct 42.7 (42-52) % MCV 96.4 (80-100) fL MCH 32.5 (25-34) pg MCHC 33.7 (32-36) g/dL RDW Std Deviation 51.3 H (36.4-46.3) fL RDW Coeff of Gilbert 14.7 H (11.5-14.5) % Plt Count 129 L (130-400) K/uL MPV 10.6 H (7.4-10.4) fL Immature Gran % (Auto) 0.3 % Neut % (Auto) 73.9 % Lymph % (Auto) 18.6 % [place] % (Auto) 5.9 % Eos % (Auto) 0.8 % Baso % (Auto) 0.5 % Immature Gran # (Auto) 0.03 H (0.00-0.02) K/uL Neut # (Auto) 7.25 H (1.4-6.5) K/uL Lymph # (Auto) 1.82 (1.2-3.4) K/uL [place] # (Auto) 0.58 (0.11-0.59) K/uL Eos # (Auto) 0.08 (0-0.5) K/uL Baso # (Auto) 0.05 (0-0.2) K/uL D-Dimer 470 (0-500) ug/L FEU Sodium 138 (136-145) mmol/L Potassium 4.5 (3.5-5.1) mmol/L Chloride 104 (98-107) mmol/L Carbon Dioxide 29 (21-32) mmol/L Anion Gap 5.0 (3-11) BUN 41 H (7-18) mg/dl Creatinine 1.87 H (0.6-1.4) mg/dl Est Cr Clr Drug Dosing 34.8 ml/min Est GFR ( Amer) 37.7 Est GFR (Non-Af Amer) 32.5 BUN/Creatinine Ratio 21.9 H (10-20) Glucose 191 H (70-99) mg/dl Calcium 8.9 (8.5-10.1) mg/dl Magnesium 2.2 (1.8-2.4) mg/dl Total Bilirubin 1.0 (0.2-1) mg/dl AST 34 (15-37) U/L ALT 25 (12-78) U/L Alkaline Phosphatase 105 (45-117) U/L Troponin I 0.087 H* (0-0.045) ng/ml NT-Pro-B Natriuret Pep 1203 (0-1800) pg/ml Total Protein 7.9 (6.4-8.2) gm/dl Albumin 4.2 (3.4-5.0) gm/dl Globulin 3.7 (2.5-4.0) gm/dl Albumin/Globulin Ratio 1.1 (0.9-2) Lipase 237 (73-393) U/L TSH 3.350 (0.300-4.500) uIu/ml Supervising Physician Co-Signing Physician Notes Attending addendum: I have physically seen this patient, have supervised the medical residents activities, and agree with the H&P unless as otherwise noted. Assessment and Plan: Elevated troponin/tachycardia with dyspnea on exertion/atrial fibrillation, flutter/hypertension-- The patient will be admitted to telemetry for serial cardiac enzymes, serial EKG's, cardiac rhythm monitoring and a 2-D echocardiogram with Dopplers. Troponin most likely elevated on the basis of rapid heart rate, however, full workup will need to be performed. Emergency department had already spoken with Dr. Esparza, cryptographic clerk on-call, who preferred to the patient be on Cardizem drip overnight to be assessed by cardiology in morning. Plan is that if there are issues with rate control not being optimal on Cardizem, will discuss with Dr. Esparza conversion and/or addition to amiodarone drip. Continue apixaban 2.5 mg p.o. twice daily, metoprolol succinate 25 mg p.o. every morning and indapamide 1.25 mg p.o. every morning if blood pressure tolerates. Remainder of orders and notations as noted. Resident Activity Tracking Resident Involvement: Resident Care Provided Care Provided: Adult [facility]
[2018-08-09] MEDS: dilTIAZem HCl 125 MG in DEXTROSE 5% 100 ML IV SCH (00:05)
[2018-08-09] MEDS: APIXABAN 2.5 MG TAB PO SCH ×3 (00:09→20:02)
[2018-08-09] MEDS ORDERED: MAGNESIUM HYDROXIDE SUSP 30 ML UDC PO PRN (01:11)
[2018-08-09] MEDS ORDERED: ALUMINUM/MAGNESIUM SUSP 30 ML UDC PO PRN (01:11)
[2018-08-09] MEDS ORDERED: POLYETHYLENE (MIRALAX) 17 GM PACK PO PRN (01:11)
[2018-08-09] MEDS ORDERED: ACETAMINOPHEN 325 MG TAB PO PRN (01:11)
[2018-08-09] MEDS ORDERED: METOPROLOL TARTRATE 1 MG/ML VIAL IV STA (01:14)
[2018-08-09] MEDS: SODIUM CHLORIDE 0.9% 1000ML 1,000 ML IV SCH ×2 (01:20→14:02)
[2018-08-09 02:06] LABS: Basophils # (auto) 0.03 K/uL (0-0.2); Basophils % (auto) 0.3 %; Eosinophils # (auto) 0.08 K/uL (0-0.5); Eosinophils % (auto) 0.8 %; Hematocrit (blood only) 39.3 % (42-52); Hemoglobin 13.1 g/dL (14.0-18.0); Immature Granulocytes # (auto) 0.02 K/uL (0.00-0.02); Immature Granulocytes % (auto) 0.2 %; Lymphocytes # (auto) 2.38 K/uL (1.2-3.4); Lymphocytes % (auto) 23.5 %; Mean Corpuscular Hgb Conc 33.3 g/dL (32-36); Mean Corpuscular Volume 96.6 fL (80-100); Mean Platelet Volume 10.4 fL (7.4-10.4); Monocytes # (auto) 0.59 K/uL (0.11-0.59); Monocytes % (auto) 5.8 %; Neutrophils # (auto) 7.03 K/uL (1.4-6.5); Neutrophils % (auto) 69.4 %; Platelet Count 120 K/uL (130-400); RDW Coefficient of Variation 14.7 % (11.5-14.5); RDW Standard Deviation 51.2 fL (36.4-46.3); Red Blood Count 4.07 M/uL (4.7-6.1); White Blood Count 10.13 K/uL (4.8-10.8)
[2018-08-09 02:14] LABS: INR 1.1 (0.9-1.1); Prothrombin Time 11.4 Seconds (9.0-12.0)
[2018-08-09 02:22] LABS: BUN Creatinine Ratio 22.5 (10-20); Creatinine Clr Calc Pharmacy 39.7 ml/min; Est GFR (African American) 44.2; Est GFR (Non-African American) 38.1; Potassium 3.9 mmol/L (3.5-5.1)
[2018-08-09 02:29] LABS: Troponin I 0.156 ng/ml (0-0.045)
[2018-08-09] MEDS: AMIODARONE / D5W 360 MG/200 ML BAG IV SCH ×2 (04:45→15:44)
[2018-08-09 08:09] LABS: Basophils # (auto) 0.02 K/uL (0-0.2); Basophils % (auto) 0.2 %; Hematocrit (blood only) 39.2 % (42-52); Hemoglobin 13.3 g/dL (14.0-18.0); Immature Granulocytes # (auto) 0.02 K/uL (0.00-0.02); Immature Granulocytes % (auto) 0.2 %; Lymphocytes # (auto) 2.59 K/uL (1.2-3.4); Lymphocytes % (auto) 26.2 %; Mean Corpuscular Hgb Conc 33.9 g/dL (32-36); Mean Corpuscular Volume 96.3 fL (80-100); Mean Platelet Volume 9.6 fL (7.4-10.4); Monocytes # (auto) 0.69 K/uL (0.11-0.59); Neutrophils # (auto) 6.45 K/uL (1.4-6.5); Neutrophils % (auto) 65.4 %; Platelet Count 107 K/uL (130-400); RDW Coefficient of Variation 14.8 % (11.5-14.5); RDW Standard Deviation 51.7 fL (36.4-46.3); Red Blood Count 4.07 M/uL (4.7-6.1); White Blood Count 9.87 K/uL (4.8-10.8)
[2018-08-09] MEDS: INDAPAMIDE 1.25 MG TAB PO SCH ×2 (09:35→09:38)
[2018-08-09] MEDS ORDERED: PSYLLIUM 58.6% POWDER PACKET PO PRN (09:36)
[2018-08-09] MEDS: CALCIUM GLUCONATE 10% 1,000 MG in SODIUM CHLORIDE 0.9% 50 ML IV SCH (11:07)
--- NOTE | 2018-08-09 11:33 | Family Medicine Progress Note ---
Date of Service August 09, 2018 Assessment & Plan (1) Atrial fibrillation: - In ED and on admission, from 10pm on 08/08 to 5am, Diltiazem drip was used for rate control but patient became hypotensive and was not rate controlled on medication. - Patient also received Adenosine 6mg IV in ER prior to admission. - Overnight team was alerted of hypotensive values and lack of correction of rate with Diltiazem. Patient then was started on Amiodarone and Diltiazem was held. Amiodarone was started on 08/09 around 5am. Still tachycardic this morning 118-126. - Also received one time dose of Metoprolol Tartrate 2.5mg IV at 1am on 08/09/18. - Pulse values since ED and overnight range from 115-135. - He has no complaints of symptoms at rest. Only had dyspnea on exertion. Versus Atrial flutter with RVR. - Electrolytes unremarkable except for hypocalcemia, calcium this morning 8.0 with Albumin of 4.2. Ionized Ca2+ 1.03 and low. Calcium Gluconate 10% IV ordered for correction and will trend. - TSH within normal limits - Had elevated trops 0.14 --> 0.156 --> 0.087. Consider demand ischemia from tachycardia from afib in an 83 year old. - Echocardiogram ordered with results * Normal LV size and systolic function EF 65-70%. No regional wall motion abnormalities. Mild concentric LVH. * LA moderately dilated * RA mildly dilated * Mild mitral regurg * Normal RV systolic pressure 29 mm Hg * Atrial flutter with rapid ventricular response * No prior study available for comparison. - Cards consult ordered Dr. Esparza for conisderation for cardioversion and/or medication management. - Anticoagulation with Eliquis 2.5mg BID started on admission. Renally dosed Age >80 +1; Creat >1.5 +1 = 2 (renal dose) Plan for rate control is to continue with Amiodarone, will see if cardiology has recommendations, but will monitor today with consideration for possible Digoxin load vs. further beta-blockers IV vs. returning to Diltiazem as blood pressure stabilizes, if no resolution with Amiodarone. FEN/GI: heart healthy diet, gentle maintenance fluids for APPLE NSS at 80ml/hr. DVT ppx: eliquis starting here CODE STATUS: FULL as discussed with pt DISPO: tele (2) Elevated troponin: - Had elevated trops 0.14 --> 0.156 --> 0.087. Consider demand ischemia f rom tachycardia from afib in an 83 year old - 4.5 points on Well's score -- denies prolonged immobility, no unilateral leg swelling, although has h/o excised breast cancer (in remission) and lymphoid. (3) NAJERA (dyspnea on exertion): Oxygen as needed (4) Acute on chronic renal insufficiency: Filenet Architect 1.87 on admission, from review of old EMR previous baseline values of 1.6 on 06/18/18 and 1.64 on 05/30/17. - on 08/09/2018 value improved to 1.64 - pre-renal suspected from afib and decrease perfusion to kidneys, also could have been volume depleted from yard work when symptoms started -gentle hydration as above -pt admits he does not hydrate well due to nocturia and insomnia (5) Benign essential hypertension: Treated at home with indapamide 1.25 mg p.o. every morning - was hypotensive during Cardizem drip - Will hold because of hypotension and also since not currently rate controlled, he might need further medication for rate control that can decrease blood pressure - This morning systolic has improved to greater than 100 with BP this morning 106/82 (6) Hyperlipidemia: Continue home atorvastatin 20 mg Supervising Physician Co-Signing Physician Notes I personally examined the patient and verified all crouch points of history and exam, discussed case, and agree with decision making with Dr Lopez. Feeling okay. No shortness of breath. No chest pain or pressure. Noted pretty abruptly onset of symptoms yesterday after lunch, and then he noted dyspnea on exertion raking sticks and going up the steps. The day before he rode his bike as is his norm for exercise several days a week, and he noted that he wrote at his usual pace/distance, and had no dyspnea on exertion or symptoms whatsoever then. Vitals noted, in general he is awake alert oriented x3 pleasant no acute distress. HEENT normal cephalic atraumatic mucous members are moist. Cardio is tachycardic irregularly irregular. A. fib/flutterrate control is been difficult. Continue amiodarone for now. Add metoprolol. If control does not,, cardiology plan for cardioversion by tomorrow is quite reasonable. It appears his symptoms very clearly started yesterday around lunchtime, making them certainly less than 48 hours in duration. Otherwise as above Subjective Mr. Encinas states that he is aysmptomatic at rest this morning. He has been in bed and has not had to exert himself to see if still dyspneic on exertion. He denies dizziness, palpitations, diaphoresis, chest pain, shortness of breath, nausea, vomiting. States he is very active and goes to the gym regularly. Was there 2 days ago and rides stationary bike and is able to complete 10+miles/one hour of riding without change in ability to tolerate. Physical Exam Vital Signs (Past 24 Hours): Last Vital Signs Temp 37.2 C 08/09/18 07:06 Pulse 122 H 08/09/18 08:00 Resp 18 08/09/18 08:00 BP 106/82 08/09/18 08:00 Pulse Ox 97 08/09/18 07:06 Constitutional: WD/WN, vitals as above cooperative and comfortable Eyes: + anicteric sclerae and EOM intact bilaterally Neck: normal visual inspection and trachea midline Respiratory: normal respiratory effort, lungs clear to auscultation Cardiovascular: Rate/Rhythm: + tachycardic; + abnormal rhythm (irregularly irregular) Extremities: no pedal edema Gastrointestinal (Abdomen): Inspection/Auscultation: normal bowel sounds Percussion/Palpation: abdomen soft; abdomen nontender, no guarding and abdomen not rigid Musculoskeletal: Head/Neck/Chest: normocephalic and head atraumatic Skin: no rashes, warm and dry Neurologic: moves all extremities and awake Psychiatric: A+Ox3, euthymic affect Results & Data Laboratory Results Laboratory Results - last 24 hr 08/08/18 08/08/18 08/08/18 20:40 20:40 20:40 WBC 9.81 RBC 4.43 L Hgb 14.4 Hct 42.7 MCV 96.4 MCH 32.5 MCHC 33.7 RDW Std Deviation 51.3 H RDW Coeff of Gilbert 14.7 H Plt Count 129 L MPV 10.6 H Immature Gran % (Auto) 0.3 Neut % (Auto) 73.9 Lymph % (Auto) 18.6 [place] % (Auto) 5.9 Eos % (Auto) 0.8 Baso % (Auto) 0.5 Immature Gran # (Auto) 0.03 H Neut # (Auto) 7.25 H Lymph # (Auto) 1.82 [place] # (Auto) 0.58 Eos # (Auto) 0.08 Baso # (Auto) 0.05 PT INR D-Dimer 470 Sodium 138 Potassium 4.5 Chloride 104 Carbon Dioxide 29 Anion Gap 5.0 BUN 41 H Creatinine 1.87 H Est Cr Clr Drug Dosing 34.8 Est GFR ( Amer) 37.7 Est GFR (Non-Af Amer) 32.5 BUN/Creatinine Ratio 21.9 H Glucose 191 H Calcium 8.9 Ionized Calcium Magnesium 2.2 Total Bilirubin 1.0 AST 34 ALT 25 Alkaline Phosphatase 105 Troponin I 0.087 H* NT-Pro-B Natriuret Pep 1203 Total Protein 7.9 Albumin 4.2 Globulin 3.7 Albumin/Globulin Ratio 1.1 Lipase 237 TSH 3.350 08/09/18 08/09/18 08/09/18 01:42 01:42 01:42 WBC 10.13 RBC 4.07 L Hgb 13.1 L Hct 39.3 L MCV 96.6 MCH 32.2 MCHC 33.3 RDW Std Deviation 51.2 H RDW Coeff of Gilbert 14.7 H Plt Count 120 L MPV 10.4 Immature Gran % (Auto) 0.2 Neut % (Auto) 69.4 Lymph % (Auto) 23.5 [place] % (Auto) 5.8 Eos % (Auto) 0.8 Baso % (Auto) 0.3 Immature Gran # (Auto) 0.02 Neut # (Auto) 7.03 H Lymph # (Auto) 2.38 [place] # (Auto) 0.59 Eos # (Auto) 0.08 Baso # (Auto) 0.03 PT 11.4 INR 1.1 D-Dimer Sodium 141 Potassium 3.9 Chloride 107 Carbon Dioxide 29 Anion Gap 5.0 BUN 37 H Creatinine 1.64 H Est Cr Clr Drug Dosing 39.7 Est GFR ( Amer) 44.2 Est GFR (Non-Af Amer) 38.1 BUN/Creatinine Ratio 22.5 H Glucose 131 H Calcium 8.0 L Ionized Calcium Magnesium Total Bilirubin AST ALT Alkaline Phosphatase Troponin I 0.156 H* NT-Pro-B Natriuret Pep Total Protein Albumin Globulin Albumin/Globulin Ratio Lipase TSH 08/09/18 08/09/18 08/09/18 07:57 07:57 08:31 WBC 9.87 RBC 4.07 L Hgb 13.3 L Hct 39.2 L MCV 96.3 MCH 32.7 MCHC 33.9 RDW Std Deviation 51.7 H RDW Coeff of Gilbert 14.8 H Plt Count 107 L MPV 9.6 Immature Gran % (Auto) 0.2 Neut % (Auto) 65.4 Lymph % (Auto) 26.2 [place] % (Auto) 7.0 Eos % (Auto) 1.0 Baso % (Auto) 0.2 Immature Gran # (Auto) 0.02 Neut # (Auto) 6.45 Lymph # (Auto) 2.59 [place] # (Auto) 0.69 H Eos # (Auto) 0.10 Baso # (Auto) 0.02 PT INR D-Dimer Sodium Potassium Chloride Carbon Dioxide Anion Gap BUN Creatinine Est Cr Clr Drug Dosing Est GFR ( Amer) Est GFR (Non-Af Amer) BUN/Creatinine Ratio Glucose Calcium Ionized Calcium 1.03 L Magnesium Total Bilirubin AST ALT Alkaline Phosphatase Troponin I 0.140 H* NT-Pro-B Natriuret Pep Total Protein Albumin Globulin Albumin/Globulin Ratio Lipase TSH Medications Administered Apixaban (Eliquis) 2.5 mg PO BID [facility] Stop: 09/07/18 23:14 Last Admin: 08/09/18 09:35 Dose: 2.5 mg Documented by: [id number] Admin: 08/09/18 00:09 Dose: 2.5 mg Documented by: [id number] Diltiazem HCl 125 mg/ Dextrose 125 mls @ 0 mls/hr IV .Q0M [facility]; Protocol Stop: 09/07/18 22:29 Last Titration: 08/09/18 05:53 Dose: 0 mg/hr, 0 mls/hr Documented by: [id number] Titration: 08/09/18 05:15 Dose: 0 mg/hr, 0 mls/hr Documented by: [id number] Titration: 08/09/18 03:45 Dose: 5 mg/hr, 5 mls/hr Documented by: [id number] Titration: 08/09/18 03:00 Dose: 10 mg/hr, 10 mls/hr Documented by: [id number] Titration: 08/09/18 02:15 Dose: 5 mg/hr, 5 mls/hr Documented by: [id number] Admin: 08/09/18 00:05 Dose: 15 mg/hr, 15 mls/hr Documented by: [id number] Cosigned by: [id number] Titration: 08/09/18 00:05 Dose: 10 mg/hr, 10 mls/hr Documented by: [id number] Cosigned by: [id number] Titration: 08/08/18 23:34 Dose: 10 mg/hr, 10 mls/hr Documented by: [id number] Admin: 08/08/18 23:01 Dose: 5 mg/hr, 5 mls/hr Documented by: [id number] Cosigned by: [id number] Sodium Chloride (Nss 1000ml) 1,000 mls @ 80 mls/hr IV .[id number] NELLI Stop: 08/10/18 01:10 Last Infusion: 08/09/18 07:00 Dose: 80 mls/hr Documented by: [id number] Admin: 08/09/18 01:20 Dose: 80 mls/hr Documented by: [id number] Amiodarone HCl/Dextrose (Nexterone / D5w) 360 mg in 200 mls @ 16.7 mls/hr IV .[id number] NELLI Stop: 09/08/18 05:44 Last Infusion: 08/09/18 07:00 Dose: 16.7 mls/hr Documented by: [id number] Cosigned by: [id number] Admin: 08/09/18 04:45 Dose: 16.7 mls/hr Documented by: [id number] Cosigned by: [id number] Calcium Gluconate 1,000 mg/ (Sodium Chloride) 60 mls @ 240 mls/hr IV TODAY@1100 [facility] Stop: 09/08/18 10:59 Last Admin: 08/09/18 11:07 Dose: 240 mls/hr Documented by: [id number] Indapamide (Lozol) 1.25 mg PO QAM [facility] Stop: 09/08/18 08:59 Last Admin: 08/09/18 09:38 Dose: Not Given Documented by: [id number] Psyllium Hydrophilic Mucilloid (Metamucil) 1 pkt PO DAILY PRN PRN Reason: Constipation Stop: 09/08/18 09:35 Last Admin: 08/09/18 10:42 Dose: 1 pkt Documented by: [id number]
[2018-08-09 12:41] LABS: Estimated Average Glucose 140 mg/dl; Hemoglobin A1C 6.5 % (4.5-5.6)
--- NOTE | 2018-08-09 13:10 | Anesthesiology Consultation ---
Date of Service August 09, 2018 Assessment & Plan (1) Encounter for pre-operative examination: Chart Review Chart Review: Acceptable Risk for Surgery and child and youth program assistant initiated Consults Requested none History Height/Weight Height: 6 ft 2 in Weight: 84.1 kg Allergies Allergy/AdvReac Type Severity Reaction Status Date / Time Sulfa (Sulfonamide Allergy Intermediate HIVES Verified 08/08/18 21:35 Antibiotics) Medications Home Medications Medication Instructions Recorded Confirmed Last Taken antiox.mv [id number] 1 tab PO QAM 08/08/18 08/08/18 08/08/18 [I-Caps] atorvastatin 20 mg PO HS 08/08/18 08/08/18 08/08/18 indapamide 1.25 mg PO QAM 08/08/18 08/08/18 08/08/18 Active Medications Generic Name Dose Route Start Last Admin Trade Name Freq PRN Reason Stop Dose Admin Apixaban 2.5 mg 08/08/18 23:15 08/09/18 09:35 Eliquis PO 09/07/18 23:14 2.5 mg BID NELLI Administration Diltiazem HCl 125 mg/ Dextrose 125 mls @ 0 mls/hr 08/08/18 22:30 08/09/18 05:53 IV 09/07/18 22:29 Infused .Q0M NELLI Titration Protocol 0 MG/HR Sodium Chloride 1,000 mls @ 80 mls/hr 08/09/18 01:11 08/09/18 14:02 Nss 1000ml IV 08/10/18 01:10 80 mls/hr .[id number] NELLI Administration Amiodarone HCl/Dextrose 360 mg in 200 mls @ 16.7 mls/hr 08/09/18 05:45 08/09/18 07:00 Nexterone / D5w IV 09/08/18 05:44 16.7 mls/hr .[id number] NELLI Infusion Calcium Gluconate 1,000 mg/ 60 mls @ 240 mls/hr 08/09/18 11:00 08/09/18 11:22 Sodium Chloride IV 09/08/18 10:59 Infused TODAY@1100 NELLI Infusion Indapamide 1.25 mg 08/09/18 09:00 08/09/18 09:38 Lozol PO 09/08/18 08:59 Not Given QAM NELLI Psyllium Hydrophilic Mucilloid 1 pkt 08/09/18 09:36 08/09/18 10:42 Metamucil PO 09/08/18 09:35 1 pkt DAILY PRN Administration Constipation Past Medical History Medical History Atrial fibrillation Hyperlipidemia (Chronic) Benign essential hypertension (Chronic) Atrial flutter (Acute) CLL (chronic lymphocytic leukemia) Hemorrhoids Social History Smoking Status: Never smoker Do You Dip or Chew Tobacco: No Hx Alcohol Use: Yes Alcohol type: beer alcohol intake frequency: a few times a month Hx Substance Use: No Physical Exam Vital Signs Last Vital Signs Temp 97.3 F L 08/09/18 12:53 Pulse 120 H 08/09/18 12:53 Resp 15 08/09/18 12:53 BP 130/84 08/09/18 12:53 Pulse Ox 97 08/09/18 12:53 Testing Electrocardiogram Date: 08/09/18 Atrial fibrillation with rapid ventricular response, rate [address] abnormality Echocardiogram Date: 08/09/18 EF: 65-70% LV Function: normal Other Findings: + LVH (mild) Valvular Disease: + MR (mild) LA mod dilated RA mildly dilated mild MR aflutter with RVR Laboratory Results 08/09/18 07:57 08/09/18 01:42 PT 11.4 Seconds (9.0-12.0) 08/09/18 01:42 INR 1.1 (0.9-1.1) 08/09/18 01:42 Hemoglobin A1c 6.5 % (4.5-5.6) H 08/09/18 07:57 Urine Color Yellow 08/09/18 14:15 Urine Appearance Clear (Clear) 08/09/18 14:15 Urine pH 6.0 (4.5-7.5) 08/09/18 14:15 Ur Specific Fleming 1.012 (1.000-1.030) 08/09/18 14:15 Urine Protein Negative (Negative) 08/09/18 14:15 Urine Glucose (UA) Negative (Negative) 08/09/18 14:15 Urine Ketones Negative (Negative) 08/09/18 14:15 Urine Nitrite Negative (Negative) 08/09/18 14:15 Ur Leukocyte Esterase Negative (Negative) 08/09/18 14:15
--- NOTE | 2018-08-09 13:14 | Cardiology Consultation ---
Date of Consultation August 09, 2018 Assessment & Plan (1) Atrial flutter: We discussed the diagnosis and possible treatment strategies. He was started on amiodarone overnight due to hypotension after he was given diltiazem, by the hospitalist service. Amiodarone may convert him to sinus rhythm. After a lengthy discussion, it appears as though his symptoms had acute onset yesterday shortly after 1:00 p.m.. This was also discussed with Dr. No who also agrees that the onset was within the past 24 hours. For this reason, would recommend electrical cardioversion electively tomorrow as he has eaten this afternoon. NPO after midnight except for medications. Continue anticoagulation for stroke risk reduction. Would also recommend anticoagulation upon discharge. Primary service is considering beta-na therapy this afternoon. Would recommend oral beta-na, as it would likely be continued upon discharge. (2) Elevated troponin: Likely secondary to demand ischemia in the setting of tachycardia. Treatment as above. If he has symptoms as an outpatient, would then recommend ischemic evaluation. He did not present with acute coronary syndrome. (3) Benign essential hypertension: Blood pressure was initially mildly elevated but then intermittently hypotensive when being treated with intravenous medications for his elevated heart rate. Treatment as per primary service. Agree with beta-na therapy for his atrial flutter as above. (4) Disposition: Cardiology will continue to follow. Plan of care discussed with Dr. No of the primary hospitalist service. Thank you for allowing me to participate in the care of your patient. Please call for any other questions or concerns. Sincerely, Curt Torres M.D. History of Present Illness Reason for Consultation: Atrial flutter Requesting Physician: Dr. Morrison Attending Physician: Steve No DO History of Present Illness Mr. Encinas is a very pleasant 83-year-old gentleman with history significant for hypertension, hypertension, CLL (in remission) CKD, and history of breast cancer status post excisions from right chest. He presented to [facility] on 08/08/2018 with atrial flutter with rapid ventricular response. He states that he ate lunch on 08/08/2018 at approximately 1:00 p.m.. Shortly after lunch while sitting still, he acutely felt a knot in his throat, chest, and stomach. A reminded him of symptoms that he had approximately 1 year ago when he checked his pulse and noted that it was very rapid. It spontaneously resolved overnight at that time. Yesterday however, the symptoms continued. He went outside to do some yd work and noted that his exercise tolerance had acutely declined. He had to take a rest after walking even short distances. He checked his pulse and noted it to be very fast. He typically exercises 3 days per week riding a stationary bicycle for 65 minutes. His last episode of exercise was 1 day prior to presentation. He felt completely normal during his exercise routine. He felt well throughout yesterday morning until this acute change in his symptoms and exercise tolerance. He has felt improved while on amiodarone, but he has not ambulated. He denies melena, hematochezia, hematuria, or other bleeding. He denies syncope, near-syncope, fevers, angina, nausea, vomiting, diarrhea, or other symptoms. He denies TIA or stroke-like symptoms. Review of systems: As above. Review of systems otherwise negative/unremarkable. Social history: He denies tobacco, alcohol, drug abuse. He is a . He has 1 son who lives in [place]. No grandchildren. He lives alone. 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 He is unaccompanied in his hospital room. Family history: No known premature CAD. Allergies Allergy/AdvReac Type Severity Reaction Status Date / Time Sulfa (Sulfonamide Allergy Intermediate HIVES Verified 08/08/18 21:35 Antibiotics) Home Medications Home Medications Medication Instructions Recorded Confirmed Type antiox. no.[id number] 1 tab PO QAM 08/08/18 08/08/18 History [I-Caps] atorvastatin 20 mg PO HS 08/08/18 08/08/18 History indapamide 1.25 mg PO QAM 08/08/18 08/08/18 History Patient History Medical History Hyperlipidemia (Chronic) Benign essential hypertension (Chronic) Hemorrhoids Social History Communication Ability: Effective Beliefs That Will Affect Care: None Current Living Situation: Alone current occupational status: retired Other Information That Helps Us Care for You: No Feels Safe at Home: Yes Safety Concerns: Feels Safe At This Time Smoking Status: Never smoker Hx Alcohol Use: Yes Hx Substance Use: No Physical Exam Vital Signs (Past 24 Hours): Last Vital Signs Temp 36.3 C L 08/09/18 12:53 Pulse 120 H 08/09/18 12:53 Resp 15 08/09/18 12:53 BP 130/84 08/09/18 12:53 Pulse Ox 97 08/09/18 12:53 Physical Exam: Gen.: No acute distress. Alert and oriented. HEENT: Anicteric sclera. Neck: No JVD. No bruits. Normal carotid upstrokes bilaterally. Cardiac: PMI was nondisplaced. No ventricular heave. Tachycardic but regular in the 120s. Normal S1-S2. No murmurs, rubs, or gallops. Pulmonary: Clear to auscultation bilaterally without wheezes, rales, or rhonchi. Abdomen: Soft, nontender, nondistended, with normoactive bowel sounds. No bruits noted. Extremities: 2+ radial pulses bilaterally. 2+ posterior tibialis pulses bilaterally. No edema or cyanosis. No palpable cords. Psychiatric: Affect appears appropriate. Results & Data Laboratory Results Laboratory Results - last 24 hr 08/08/18 08/08/18 08/08/18 20:40 20:40 20:40 WBC 9.81 RBC 4.43 L Hgb 14.4 Hct 42.7 MCV 96.4 MCH 32.5 MCHC 33.7 RDW Std Deviation 51.3 H RDW Coeff of Gilbert 14.7 H Plt Count 129 L MPV 10.6 H Immature Gran % (Auto) 0.3 Neut % (Auto) 73.9 Lymph % (Auto) 18.6 [place] % (Auto) 5.9 Eos % (Auto) 0.8 Baso % (Auto) 0.5 Immature Gran # (Auto) 0.03 H Neut # (Auto) 7.25 H Lymph # (Auto) 1.82 [place] # (Auto) 0.58 Eos # (Auto) 0.08 Baso # (Auto) 0.05 PT INR D-Dimer 470 Sodium 138 Potassium 4.5 Chloride 104 Carbon Dioxide 29 Anion Gap 5.0 BUN 41 H Creatinine 1.87 H Est Cr Clr Drug Dosing 34.8 Est GFR ( Amer) 37.7 Est GFR (Non-Af Amer) 32.5 BUN/Creatinine Ratio 21.9 H Glucose 191 H Estimat Average Glucose Hemoglobin A1c Calcium 8.9 Ionized Calcium Magnesium 2.2 Total Bilirubin 1.0 AST 34 ALT 25 Alkaline Phosphatase 105 Troponin I 0.087 H* NT-Pro-B Natriuret Pep 1203 Total Protein 7.9 Albumin 4.2 Globulin 3.7 Albumin/Globulin Ratio 1.1 Lipase 237 TSH 3.350 08/09/18 08/09/18 08/09/18 01:42 01:42 01:42 WBC 10.13 RBC 4.07 L Hgb 13.1 L Hct 39.3 L MCV 96.6 MCH 32.2 MCHC 33.3 RDW Std Deviation 51.2 H RDW Coeff of [place] 14.7 H Plt Count 120 L MPV 10.4 Immature Gran % (Auto) 0.2 Neut % (Auto) 69.4 Lymph % (Auto) 23.5 [place] % (Auto) 5.8 Eos % (Auto) 0.8 Baso % (Auto) 0.3 Immature Gran # (Auto) 0.02 Neut # (Auto) 7.03 H Lymph # (Auto) 2.38 [place] # (Auto) 0.59 Eos # (Auto) 0.08 Baso # (Auto) 0.03 PT 11.4 INR 1.1 D-Dimer Sodium 141 Potassium 3.9 Chloride 107 Carbon Dioxide 29 Anion Gap 5.0 BUN 37 H Creatinine 1.64 H Est Cr Clr Drug Dosing 39.7 Est GFR ( Amer) 44.2 Est GFR (Non-Af Amer) 38.1 BUN/Creatinine Ratio 22.5 H Glucose 131 H Estimat Average Glucose Hemoglobin A1c Calcium 8.0 L Ionized Calcium Magnesium Total Bilirubin AST ALT Alkaline Phosphatase Troponin I 0.156 H* NT-Pro-B Natriuret Pep Total Protein Albumin Globulin Albumin/Globulin Ratio Lipase TSH 08/09/18 08/09/18 08/09/18 07:57 07:57 07:57 WBC 9.87 RBC 4.07 L Hgb 13.3 L Hct 39.2 L MCV 96.3 MCH 32.7 MCHC 33.9 RDW Std Deviation 51.7 H RDW Coeff of Gilbert 14.8 H Plt Count 107 L MPV 9.6 Immature Gran % (Auto) 0.2 Neut % (Auto) 65.4 Lymph % (Auto) 26.2 [place] % (Auto) 7.0 Eos % (Auto) 1.0 Baso % (Auto) 0.2 Immature Gran # (Auto) 0.02 Neut # (Auto) 6.45 Lymph # (Auto) 2.59 [place] # (Auto) 0.69 H Eos # (Auto) 0.10 Baso # (Auto) 0.02 PT INR D-Dimer Sodium Potassium Chloride Carbon Dioxide Anion Gap BUN Creatinine Est Cr Clr Drug Dosing Est GFR ( Amer) Est GFR (Non-Af Amer) BUN/Creatinine Ratio Glucose Estimat Average Glucose 140 Hemoglobin A1c 6.5 H Calcium Ionized Calcium Magnesium Total Bilirubin AST ALT Alkaline Phosphatase Troponin I 0.140 H* NT-Pro-B Natriuret Pep Total Protein Albumin Globulin Albumin/Globulin Ratio Lipase TSH 08/09/18 08:31 WBC RBC Hgb Hct MCV MCH MCHC RDW Std Deviation RDW Coeff of Gilbert Plt Count MPV Immature Gran % (Auto) Neut % (Auto) Lymph % (Auto) [place] % (Auto) Eos % (Auto) Baso % (Auto) Immature Gran # (Auto) Neut # (Auto) Lymph # (Auto) [place] # (Auto) Eos # (Auto) Baso # (Auto) PT INR D-Dimer Sodium Potassium Chloride Carbon Dioxide Anion Gap BUN Creatinine Est Cr Clr Drug Dosing Est GFR ( Amer) Est GFR (Non-Af Amer) BUN/Creatinine Ratio Glucose Estimat Average Glucose Hemoglobin A1c Calcium Ionized Calcium 1.03 L Magnesium Total Bilirubin AST ALT Alkaline Phosphatase Troponin I NT-Pro-B Natriuret Pep Total Protein Albumin Globulin Albumin/Globulin Ratio Lipase TSH Diagnostic Findings ECG personally reviewed: ECG 08/08/2018 at 9:10 p.m.: Atrial flutter 128 bpm ECG 08/08/2018 at 8:34 p.m.: Probable atrial flutter 127 bpm. ECG 08/09/2018 at 2:26 a.m.: Probable atrial flutter at 128 bpm. Telemetry personally reviewed: Atrial flutter with rapid ventricular response. Echo 08/09/2018: Normal LV size, wall motion, systolic function. EF 65-70%. Mild LVH. Moderate left atrial dilation. Mild right atrial dilation. Mild MR. RVSP 29. Atrial flutter with RVR. Chest x-ray 08/08/2018: Negative per Radiology. Medications Administered Current Inpatient Medications Acetaminophen (Tylenol) 650 mg PO Q4H PRN PRN Reason: Pain or Fever Stop: 09/08/18 01:10 Al Hydrox/Mg Hydrox/Simethicone (Maalox) 15 ml PO Q4H PRN PRN Reason: Dyspepsia Stop: 09/08/18 01:10 Apixaban (Eliquis) 2.5 mg PO BID REPLACED BY [facility] Stop: 09/07/18 23:14 Last Admin: 08/09/18 09:35 Dose: 2.5 mg Documented by: Atorvastatin Calcium (Lipitor) 20 mg PO HS REPLACED BY [facility] Stop: 09/08/18 20:59 Diltiazem HCl 125 mg/ Dextrose 125 mls @ 0 mls/hr IV .Q0M REPLACED BY [facility]; Protocol Stop: 09/07/18 22:29 Last Titration: 08/09/18 05:53 Dose: Infused Documented by: Sodium Chloride (Nss 1000ml) 1,000 mls @ 80 mls/hr IV .[id number] REPLACED BY [facility] Stop: 08/10/18 01:10 Last Infusion: 08/09/18 07:00 Dose: 80 mls/hr Documented by: Amiodarone HCl/Dextrose (Nexterone / D5w) 360 mg in 200 mls @ 16.7 mls/hr IV .[id number] REPLACED BY [facility] Stop: 09/08/18 05:44 Last Infusion: 08/09/18 07:00 Dose: 16.7 mls/hr Documented by: Calcium Gluconate 1,000 mg/ (Sodium Chloride) 60 mls @ 240 mls/hr IV TODAY@1100 REPLACED BY [facility] Stop: 09/08/18 10:59 Last Infusion: 08/09/18 11:22 Dose: Infused Documented by: Indapamide (Lozol) 1.25 mg PO QAM REPLACED BY [facility] Stop: 09/08/18 08:59 Last Admin: 08/09/18 09:38 Dose: Not Given Documented by: Magnesium Hydroxide (Milk Of Magnesia) 30 ml PO Q12H PRN PRN Reason: Constipation Stop: 09/08/18 01:10 Polyethylene Glycol (Miralax Powder Packet) 17 gm PO DAILY PRN PRN Reason: Constipation Stop: 09/08/18 01:10 Psyllium Hydrophilic Mucilloid (Metamucil) 1 pkt PO DAILY PRN PRN Reason: Constipation Stop: 09/08/18 09:35 Last Admin: 08/09/18 10:42 Dose: 1 pkt Documented by: (1) Atrial flutter Atrial flutter type: unspecified Qualified Code(s): I48.92 - Unspecified atrial flutter
[2018-08-09 14:25] LABS: Appearance Urine Clear (Clear); Bilirubin Urine Negative (Negative); Blood Urine Negative (Negative); Color Urine Yellow; Glucose Urine UA Negative (Negative); Ketones Urine Negative (Negative); Leukocyte Esterase Urine Negative (Negative); Nitrite Urine Negative (Negative); Protein Urine Negative (Negative); Specific Gravity Urine 1.012 (1.000-1.030); Urobilinogen Urine Negative (Negative)
[2018-08-09] MEDS ORDERED: METOPROLOL TARTRATE 25 MG TAB PO STA (16:00)
[2018-08-09] MEDS ORDERED: ATORVASTATIN 20 MG TAB PO SCH (21:00)
[2018-08-10 06:49] LABS: Hemoglobin 11.9 g/dL (14.0-18.0); Mean Corpuscular Hgb Conc 33.1 g/dL (32-36); Mean Corpuscular Volume 96.8 fL (80-100); RDW Coefficient of Variation 15.2 % (11.5-14.5); RDW Standard Deviation 53.5 fL (36.4-46.3); Red Blood Count 3.72 M/uL (4.7-6.1); White Blood Count 6.73 K/uL (4.8-10.8)
[2018-08-10 07:13] LABS: Mean Platelet Volume 10.3 fL (7.4-10.4); Platelet Count 96 K/uL (130-400)
[2018-08-10 07:26] LABS: BUN Creatinine Ratio 17.8 (10-20); Calcium 7.8 mg/dl (8.5-10.1); Creatinine Clr Calc Pharmacy 38.1 ml/min; Est GFR (Non-African American) 36.2; Potassium 4.2 mmol/L (3.5-5.1)
[2018-08-10 07:40] LABS: Basophils # (auto) 0.03 K/uL (0-0.2); Basophils % (auto) 0.4 %; Eosinophils # (auto) 0.21 K/uL (0-0.5); Eosinophils % (auto) 3.1 %; Immature Granulocytes # (auto) 0.02 K/uL (0.00-0.02); Immature Granulocytes % (auto) 0.3 %; Lymphocytes # (auto) 2.62 K/uL (1.2-3.4); Lymphocytes % (auto) 38.9 %; Monocytes # (auto) 0.52 K/uL (0.11-0.59); Monocytes % (auto) 7.7 %; Neutrophils # (auto) 3.33 K/uL (1.4-6.5); Neutrophils % (auto) 49.6 %; Platelet Estimate Decreased (Normal)
[2018-08-10] MEDS ORDERED: PROPOFOL IV EMULSION 10 MG/ML 20 ML VIAL IV ONE (08:12)
[2018-08-10] MEDS ORDERED: LIDOCAINE HCL 2% 2 ML VIAL/AMP(20MG/ML) INFIL ONE (08:12)
[2018-08-10] MEDS ORDERED: METOPROLOL TARTRATE 50 MG TAB PO SCH (09:00)
--- NOTE | 2018-08-10 10:20 | Discharge Summary ---
Date of Service August 10, 2018 Admission HPI Per Admitting Provider This is an 83-year-old male who was in his usual state of health earlier today when he says he was working in his yard and began to have a queasy feeling in his upper stomach. He says he went about his yard work, lifting a moderate amount of weight, walking for 50 feet with it and then having to stop because of feeling very tired and restless. He also complained of palpitations. He says he felt his own pulse and noted that it was fast although does not know the exact rate. He says he also felt short of breath with climbing the stairs which is unlike him. He says that he this has happened to him before about a year ago he says after night of being out with friends, he came home says he felt some sensation of palpitations and checked his pulse at that time and also felt that it was very fast. He denies overt chest pain, syncope or visual change or headache. He also denies prolonged immobility or recent orthopedic surgery, cough or hemoptysis. Denies any leg swelling. PMH: 1. Hyperlipidemia -on atorvastatin 20 mg 2. hypertension -on indapamide 1.25 mg 3. Chronic lymphoid leukemia in remission 4. History of breast cancer, status post excision of the lesions from the right breast. 5. Hyperglycemia-last A1c May 2018 6.5. Not currently on medications for this. 6. Stable chronic kidney disease 3B PSH 1. Knee arthroplasty Social history: Lives alone, for 12 years. Denies smoking, drug use, alcohol use. ED course: Tachycardic up to 130. Blood pressure 141/73, then 162/101. Adenosine was given initially 6 mg and then 12 mg which initially slowed on the heart rate into the 80s but then went back up to 130. ED doctor discussed with Dr. Esparza and recommendation was made for Cardizem drip no bolus, Eliquis 2.5 mg twice daily, echo in the morning. Initial labs were remarkable for: Patient is not anemic H&H 14.4/42.7, platelets 129, chemistry profile remarkable for elevated BUN creatinine 41/1.87. Hyperglycemia. Magnesium 2.2. Potassium 4.5. No transaminitis. Elevated troponin 0 0.087. Elevated BNP 1203. Negative d-dimer. Lipase and TSH normal. Chest x-ray unremarkable. Admission Exam Per Admitting Provider Vitals noted as above and within normal limits with the exception of hypertension, tachycardia. GENERAL: Awake, alert to person, place, and time, nontoxic-appearing, in no distress. Patient's friend is at the bedside. HENT: Normocephalic, atraumatic. Nasal cannula in place. Mucus membranes appear dry. EYES: Normal conjunctiva. Sclera non-icteric. EOMI. NECK: Supple. Full range of motion. No JVD RESPIRATORY: Faint crackles at the bases.. Normal work of breathing. Nasal cannula in place. CARDIAC: Tachycardic rate.. Extremities warm and well perfused, 2+ radial pu lses bilaterally; tibial pulses difficult to palpate. ABDOMEN: Soft, non-distended. No tenderness to palpation in all four quadrants. No rebound or guarding. No masses. Bowel sounds are normal. LOWER EXTREMITIES: Inspection of calves reveal equal size bilaterally. They are non-tender. No edema. No discoloration. NEURO: No focal gross focal motor deficits noted. Sensation in tact. CN II-XII grossly in tact. SKIN: Rash not present. No jaundice noted. Significant lesions not present. PSYCH: Appropriate mood and affect. Cooperative. Exam as done by Nitza Kirkland MD, Assistant Customer Service Manager. Principal Diagnosis Atrial flutter Discharge Exam Constitutional WD/WN, vitals as above cooperative and comfortable Eyes + anicteric sclerae and EOM intact bilaterally Neck normal visual inspection and trachea midline Respiratory normal respiratory effort, lungs clear to auscultation Cardiovascular Rate/Rhythm: regular rate and regular rhythm Extremities: no pedal edema Gastrointestinal (Abdomen) Inspection/Auscultation: normal bowel sounds Percussion/Palpation: abdomen soft; abdomen nontender, no guarding and abdomen not rigid Musculoskeletal Head/Neck/Chest: normocephalic and head atraumatic Skin no rashes, warm and dry Neurologic moves all extremities and awake Psychiatric A+Ox3, euthymic affect Discharge Data Allergies Allergy/AdvReac Type Severity Reaction Status Date / Time Sulfa (Sulfonamide Allergy Intermediate HIVES Verified 08/08/18 21:35 Antibiotics) Consultations 08/08/18 22:26 ED Decision to Admit Stat 08/08/18 23:06 Consult Cardiology Routine 08/10/18 08:00 Consult Anesthesiology Routine Hospital Course (1) Atrial flutter: - In ED and on admission, from 10pm on 08/08 to 5am, Diltiazem drip was used for rate control but patient became hypotensive and was not rate controlled on medication. - Patient also received Adenosine 6mg IV in ER prior to admission. - Overnight team was alerted of hypotensive values and lack of correction of rate with Diltiazem. Patient then was started on Amiodarone and Diltiazem was held. Amiodarone was started on 08/09 around 5am. Still tachycardic this morning 118-126. - Also received one time dose of Metoprolol Tartrate 2.5mg IV at 1am on 08/09/18. - Pulse values since ED on first overnight range from 115-135. - He has no complaints of symptoms at rest. Only had dyspnea on exertion. - He was given a one time dose of Lopressor 25mg in the afternoon of 08/09 and did convert into NSR with normal rate around 7-8pm. His Amio drip was stopped and he was given Lopressor 50mg x1 dose around 9pm. He remained in NSR with normal rate. - Will have him continue beta-na at home with Toprol XR 25mg daily. - Will continue with Eliquis 2.5mg BID for anticoagulation as concerns that this could be paroxysmal. Discussed this with patient and he is in agreement with treatment plan. - Electrolytes unremarkable except for hypocalcemia, calcium this morning 8.0 with Albumin of 4.2. Ionized Ca2+ 1.03 and low. Calcium Gluconate 10% IV ordered for correction and will trend. - TSH within normal limits - Had elevated trops 0.14 --> 0.156 --> 0.087. Consider demand ischemia from tachycardia from afib in an 83 year old. - Echocardiogram ordered with results * Normal LV size and systolic function EF 65-70%. No regional wall motion abnormalities. Mild concentric LVH. * LA moderately dilated * RA mildly dilated * Mild mitral regurg * Normal RV systolic pressure 29 mm Hg * Atrial flutter with rapid ventricular response * No prior study available for comparison. - Cards consult ordered Dr. Esparza for conisderation for cardioversion and/or medication management. - Anticoagulation with Eliquis 2.5mg BID started on admission. Renally dosed Age >80 +1; Creat >1.5 +1 = 2 (renal dose) FEN/GI: heart healthy diet, gentle maintenance fluids for APPLE NSS at 80ml/hr. DVT ppx: eliquis starting here CODE STATUS: FULL as discussed with pt DISPO: tele (2) Atrial fibrillation: diagnosis of atrial flutter inplace of atrial fibrillation as suspected on admission (3) Elevated troponin: - Had elevated trops 0.14 --> 0.156 --> 0.087. Consider demand ischemia from tachycardia from afib in an 83 year old - 4.5 points on Well's score -- denies prolonged immobility, no unilateral leg swelling, although has h/o excised breast cancer (in remission) and lymphoid. (4) NAJERA (dyspnea on exertion): Oxygen as needed (5) Acute on chronic renal insufficiency: Electronic Resources Librarian 1.87 on admission, from review of old EMR previous baseline values of 1.6 on 06/18/18 and 1.64 on 05/30/17. - on 08/09/2018 value improved to 1.64. And on day of discharge 1.71. - pre-renal suspected from afib and decrease perfusion to kidneys, also could have been volume depleted from yard work when symptoms started -gentle hydration as above -pt admits he does not hydrate well due to nocturia and insomnia (6) Benign essential hypertension: Treated at home with indapamide 1.25 mg p.o. every morning - was hypotensive during Cardizem drip - Held beginning of admission because of hypotension and also since not currently rate controlled as he might need further medication for rate control that can decrease blood pressure - BPs have been stable with patient in NSR. (7) Hyperlipidemia: Continue home atorvastatin 20 mg Total Time Total Time Spent Total Time Spent (In Minutes): >30 Total Time Includes: Examination of the Patient, Discharge Planning, Medication Reconciliation and Communication With Other Providers Discharge Plan Discharge Items Patient Disposition: Home - Self-Care Reason For Visit: TACHYCARDIA, ELEV TROP, APPLE Discharge Diagnosis: atrial flutter Condition: Good Discharge Goals: Diagnostic testing Activity: Resume your previous activity Non-emergency contact: Primary Care Provider Call non-emergency contact if: you have any medication questions and your symptoms worsen Follow-up/Referrals: Partha Agarwal MD [Primary Care Provider] - (Please, follow up in Dr. Agarwal's office. *His nurse will call you with the appointment details. If you have any questions, call the office at [phone].) Diet: Regular Addtl Provider Instructions: atrial fibrillation/flutter -as we discussed, a-flutter (and it's "close cousin" afib) cause the heart to race inappropriately. this is because the electricity in the top chambers of the heart becomes disorganized, and the top part of the heart then sends tons of extra signals to the ventricles to contract. your ventricles are able to filter out most of the extra signals, but still the ventricles were racing at a rate of about 130 beats per minute. since that is basically going "all out" for your heart at 83 years old, you felt fatigued from the racing -using medications, right now you've kicked back into a regular rhythm - but we know from studies on people with afib and aflutter that over time, most people go in and out of the irregular rhythm and don't know it. -in addition to the racing heart, when the top part of the heart is quivering, it allows a stagnant pond to form - which then can allow clots to form that can float "downstream" -- which most commonly leads to a stroke -the main goals of treatment are to keep the rate under control (right now that is easy since you're in a regular rhythm) and to keep your blood thin to protect you from stroke ---> rate control: we've started you on 25mg of metoprolol succinate (toprol xl) to keep a "ceiling" on rate control -- given that afib/flutter are an electrical phenomenon (as we discussed, much like the randomness of heat lightning on a humid day), medications like metoprolol are not a "perfect fix" as much as a "turn down the probability" that you'll race. should you feel your self feeling the fatigue/shortness of breath like you felt when you came in, then definitely get checked out again. as far as side effects, most people tolerate metoprolol at a low dose like you'll be on quite well, although some people do feel sluggish/fatigued/tired --> if you're feeling that (and you're not back in a racing afib/flutter) then it easily could be that the metoprolol is the culprit - in which case there are other medications that can be used to keep rates controlled ---> stroke prevention: as we discussed, you carry about a 2.2% risk on the year of having a stroke related to the afib, which, while not much, is significant enough to benefit from a blood thinner for stroke prevention. loosely calculated out, it would be about a 22% chance of having a stroke by the time you're 89. (and since you're doin so well/are so young and healthy/at 83, we definitely need to look at you as a sloan who's going to be around for a while as we make risk/benefit decisions). given that the direct oral anticoagulants work as well or better than coumadin, without as much risk of bleeding (and without the need for constant bloodwork to monitor) we tend to favor using those - we've got you on eliquis twice a day, and so far it appears to be going well. as we discussed, certainly there is a higher risk of bleeding being on a blood thinner than not, but when we compare the "apples and oranges" of serious bleeds (that are not very common, and we can almost always stabilize and "fix") vs afib/flutter related strokes (which are usually quite sizable and we can't usually successfully reverse) it ends up being a pretty direct answer that unless you're really running into bleeding issues, we generally do anticoagulate people with their afib/flutter. Prescriptions: New Eliquis 2.5 mg Tablet 2.5 mg PO BID Qty: 60 RF: 0 metoprolol succinate [Toprol XL] 25 mg tablet extended release 24 hr 25 mg PO DAILY Qty: 30 RF: 0 Continued atorvastatin 20 mg Tablet 20 mg PO HS RF: 0 indapamide 1.25 mg Tablet 1.25 mg PO QAM RF: 0 I-Caps 280-10-2 mg Capsule 1 tab PO QAM RF: 0 Stand-Alone Forms: My [facility] Discharge Orders: Discharge Order (Routine); Ordered 08/10/18 Ordered By: Colton Lopez Admission Data Admit Date/Time: 08/09/18 00:27 Attending Provider: Steve No Admit Provider: Daniel Kirkland Primary Care Provider: Partha Agarwal Other Providers: Osito Morrison ; Chandler Esparza ; Alesia Zapata ; Maria Reilly ; Kary Brown ; Ligia Paiz ; Litzy Beltrán ; Estelle Kruger ; Colton Lara ; Daniel Hodge ; Mario Candelario ; Tiff Candelario ; Zeeshan Celeste ; Joyce Shell ; Jesus Blount ; Alex Elias ; Chris Leavitt ; Varinder Campos ; Alexander Redding ; Jada Simons ; Sukumar Rosado ; Kiara Perez ; Bessie Rosado ; Karel Velasquez ; Soraida Hamlin ; Michael Win ; Sherry Hurley ; Yanira Huffman ; Nadir French ; Elizabeth Slaughter ; Alisa Crane ; Gretchen Ravi ; Abril Baum ; Luke Baum V ; Joel Tsai ; Kary Ambriz ; Royal [place] ; Kristie Fraser V ; Faustino Hidalgo ; Lilia Bolton ; [place] Post ; Ana Ambriz ; Luke Haas ; Quinton Dsouza ; Abram Simons ; Berenice Jackson. ; Gretchen Holly ; Daniel Vasquez ; Geurita Love ; Jai Redding ; Laura Rodríguez ; Hunter Arroyo Service: Telemetry Medical Other Interventions: Discharge Summary Assessment (RN) Last Done: 08/10/18 14:09 DC Date/Time DO NOT enter until pt leaves facility: 08/10/18 15:42 Supervising Physician Co-Signing Physician Notes I personally examined the patient and verified all crouch points of history and exam, discussed case, and agree with decision making with Dr Lopez feeling better ready to go home extensively discussed aflutter/fib and treatment. all questions answered to the best of my ability and to his satisfaction. his main concern was bruising and hemorrhoids w anticoagulation - discussed that stroke prevention is to work aga inst a life-altering permanent worsening, so the threshold should be fairly high at which to cease anticoagulation, but that his concerns were valid - and the best plan of action would be to anticoagulate and follow closely jh noted nad breathing unlabored nsr ~65bpm no focal neuro deficits breathing unlaobred skin shows no pallor or icterus new onset aflutter/fib - sounds to have had PAF in the past by symptoms (and statistical probability) -home on metoprolol, eliquis -close PCP f/u -stable for discharge
[2018-08-10 10:54] VITALS: PULSE 63; TEMP 97.7; O2SAT 97
[2018-08-10] MEDS: APIXABAN 2.5 MG TAB PO SCH (10:59)
--- NOTE | 2018-08-10 11:20 | Cardiology Progress Note ---
Date of Service August 10, 2018 Assessment & Plan (1) Atrial flutter: He converted to sinus rhythm while on amiodarone drip. Amiodarone has since been discontinued by the hospitalist service. We discussed treatment strategy going forward. He prefers to remain off of anti rhythmic therapy. He is likely to have a recurrence in the future as he does describe symptoms 1 year ago as well. If he has recurrence sooner rather than later, anti rhythmic approach may be more appropriate at that time. For now, can continue beta- na. He has been placed on beta-na as per primary service. Continue anticoagulation for stroke risk reduction if no contraindications. Monitor platelet level as he does have thrombocytopenia. (2) Elevated troponin: Likely secondary to demand ischemia in the setting of tachycardia. Treatment as above. If he has symptoms as an outpatient, would then recommend ischemic evaluation. He did not present with acute coronary syndrome. (3) Benign essential hypertension: Blood pressure is adequately controlled. As per primary service. (4) Disposition: From a cardiac perspective, he can be discharged today. He would like to follow-up with his PCP. He was offered cardiology follow-up in the outpatient setting but he declines at this time. Plan of care discussed with Dr. No of the primary hospitalist service. Subjective He feels back to baseline. He converted to sinus rhythm at 7:22 p.m. last evening while on amiodarone. He denies palpitations, chest pain, shortness of breath, syncope, near-syncope, or bleeding. Amiodarone was discontinued by the hospitalist service. Review of systems: As above. Physical Exam Vital Signs (Past 24 Hours): Last Vital Signs Temp 36.5 C 08/10/18 10:52 Pulse 63 08/10/18 10:52 Resp 20 08/10/18 10:52 BP 119/65 08/10/18 10:52 Pulse Ox 97 08/10/18 10:52 Physical Exam: Gen.: No acute distress. Alert and oriented. HEENT: Anicteric sclera. Neck: No JVD. Cardiac: Regular. Normal S1-S2. No murmurs, rubs, or gallops. Pulmonary: Clear to auscultation bilaterally without wheezes, rales, or rhonchi. Abdomen: Soft, nontender, nondistended, with normoactive bowel sounds. No bruits noted. Extremities: No edema or cyanosis. Psychiatric: Affect appears appropriate. Results & Data Laboratory Results Laboratory Results - last 24 hr 08/09/18 08/09/18 08/10/18 07:57 14:15 06:31 WBC RBC Hgb Hct MCV MCH MCHC RDW Std Deviation RDW Coeff of Gilbert Plt Count MPV Immature Gran % (Auto) Neut % (Auto) Lymph % (Auto) [place] % (Auto) Eos % (Auto) Baso % (Auto) Immature Gran # (Auto) Neut # (Auto) Lymph # (Auto) [place] # (Auto) Eos # (Auto) Baso # (Auto) Platelet Estimate Sodium 143 Potassium 4.2 Chloride 111 H Carbon Dioxide 28 Anion Gap 4.0 BUN 30 H Creatinine 1.71 H Est Cr Clr Drug Dosing 38.1 Est GFR ( Amer) 42.0 Est GFR (Non-Af Amer) 36.2 BUN/Creatinine Ratio 17.8 Glucose 95 POC Glucose Estimat Average Glucose 140 Hemoglobin A1c 6.5 H Calcium 7.8 L Urine Color Yellow Urine Appearance Clear Urine pH 6.0 Ur Specific [place] 1.012 Urine Protein Negative Urine Glucose (UA) Negative Urine Ketones Negative Urine Blood Negative Urine Nitrite Negative Urine Bilirubin Negative Urine Urobilinogen Negative Ur Leukocyte Esterase Negative 08/10/18 08/10/18 06:31 07:30 WBC 6.73 RBC 3.72 L Hgb 11.9 L Hct 36.0 L MCV 96.8 MCH 32.0 MCHC 33.1 RDW Std Deviation 53.5 H RDW Coeff of Gilbert 15.2 H Plt Count 96 L MPV 10.3 Immature Gran % (Auto) 0.3 Neut % (Auto) 49.6 Lymph % (Auto) 38.9 [place] % (Auto) 7.7 Eos % (Auto) 3.1 Baso % (Auto) 0.4 Immature Gran # (Auto) 0.02 Neut # (Auto) 3.33 Lymph # (Auto) 2.62 [place] # (Auto) 0.52 Eos # (Auto) 0.21 Baso # (Auto) 0.03 Platelet Estimate Decreased Sodium Potassium Chloride Carbon Dioxide Anion Gap BUN Creatinine Est Cr Clr Drug Dosing Est GFR ( Amer) Est GFR (Non-Af Amer) BUN/Creatinine Ratio Glucose POC Glucose 91 Estimat Average Glucose Hemoglobin A1c Calcium Urine Color Urine Appearance Urine pH Ur Specific [place] Urine Protein Urine Glucose (UA) Urine Ketones Urine Blood Urine Nitrite Urine Bilirubin Urine Urobilinogen Ur Leukocyte Esterase Diagnostic Findings Telemetry personally reviewed: Currently sinus rhythm. Converted to sinus rhythm at 7:22 p.m. from atrial flutter. ECG personally reviewed: ECG 08/10/2018 at 6:29 a.m.: NSR at 64 bpm. Normal ECG. Medications Administered Current Inpatient Medications Acetaminophen (Tylenol) 650 mg PO Q4H PRN PRN Reason: Pain or Fever Stop: 09/08/18 01:10 Al Hydrox/Mg Hydrox/Simethicone (Maalox) 15 ml PO Q4H PRN PRN Reason: Dyspepsia Stop: 09/08/18 01:10 Apixaban (Eliquis) 2.5 mg PO BID [facility] Stop: 09/07/18 23:14 Last Admin: 08/09/18 20:02 Dose: 2.5 mg Documented by: Atorvastatin Calcium (Lipitor) 20 mg PO HS [facility] Stop: 09/08/18 20:59 Last Admin: 08/09/18 20:02 Dose: 20 mg Documented by: Diltiazem HCl 125 mg/ Dextrose 125 mls @ 0 mls/hr IV .Q0M [facility]; Protocol Stop: 09/07/18 22:29 Last Titration: 08/09/18 05:53 Dose: Infused Documented by: Amiodarone HCl/Dextrose (Nexterone / D5w) 360 mg in 200 mls @ 16.7 mls/hr IV .[id number] [facility] Stop: 09/08/18 05:44 Last Infusion: 08/10/18 11:05 Dose: Infused Documented by: Calcium Gluconate 1,000 mg/ (Sodium Chloride) 60 mls @ 240 mls/hr IV TODAY@1100 [facility] Stop: 09/08/18 10:59 Last Infusion: 08/09/18 11:22 Dose: Infused Documented by: Indapamide (Lozol) 1.25 mg PO QAM [facility] Stop: 09/08/18 08:59 Last Admin: 08/09/18 09:38 Dose: Not Given Documented by: Magnesium Hydroxide (Milk Of Magnesia) 30 ml PO Q12H PRN PRN Reason: Constipation Stop: 09/08/18 01:10 Metoprolol Tartrate (Lopressor) 50 mg PO BID [facility] Stop: 09/09/18 08:59 Polyethylene Glycol (Miralax Powder Packet) 17 gm PO DAILY PRN PRN Reason: Constipation Stop: 09/08/18 01:10 Psyllium Hydrophilic Mucilloid (Metamucil) 1 pkt PO DAILY PRN PRN Reason: Constipation Stop: 09/08/18 09:35 Last Admin: 08/09/18 10:42 Dose: 1 pkt Documented by: (1) Atrial flutter Atrial flutter type: unspecified Qualified Code(s): I48.92 - Unspecified atrial flutter
[2018-08-10] MEDS: CALCIUM GLUCONATE 10% 1,000 MG in SODIUM CHLORIDE 0.9% 50 ML IV SCH (11:31)
[2018-08-10 14:09] VITALS: BP 102/76
== END 2018-08-10 15:42 | disposition home or self-care (01) | DRG 309 ==
LOC: ED 20:26 → SUATTDRO 08-09 00:27 → 2E 08-09 00:27

== ENCOUNTER 2021-09-26 13:08 | Inpatient (IN) ==
--- NOTE | 2021-09-26 13:17 | Emergency Department Note ---
Impression & Plan Fracture of left pelvis, Closed fracture of single pubic ramus of pelvis, Hematoma of left hip ED Provider Note Name: HANNAH HE Age: 86 Sex: M Arrives Via: Ambulance Informant: Patient, EMS ED Provider: Goran Bejarano MD Chief Complaint: Hip pain Impression: As per impressions above Medical Decision Making: Pleasant 86-year-old gentleman with multiple comorbidities arrives for evaluation of left hip pain. He tripped and fell this morning off of a step to the ground. Landed on his left hip. Due to worsening pain throughout the day and difficulty with ambulation patient arrives to ER via EMS for evaluation. He has some pain with range of motion left hip though not in severe distress and a large hematoma of the left lateral thigh. He is awake alert oriented in no distress. He is not septic appearing. He has no headache or neck pain. Init ial x-rays reveal fracture throughout the left pubic rami. With these findings and the inability to ambulate decision to get CT and further laboratory. CT head and neck okay. CT pelvis with pelvic fractures noted. He does have some hematomas and is on a anticoagulant however hemoglobin is okay and his blood pressure is stable. I did consult the hospitalist to evaluate the patient. Additional history obtained from chart Differentials:Fracture, subluxation, dislocation, contusion, ligamentous injury, neurovascular, compartment syndrome, rhabdomyolysis, as well as other pathologies. Vital Signs: reviewed and remarkable for no significant abnormalities Imaging:X-rays of the left hip and left femur without acute fracture nor dislocation. Plan: Disposition: Hospitalization Condition: Good History of Present Illness:86-year-old gentleman arrives for evaluation of left hip pain. Patient notes he was going down the stairs when he tripped on the last step or 2 landing on his left hip. This occurred this morning. He notes t he pain is gradually worsened as the day went on. He has been able to ambulate. Denies any head or neck injury. Denies any headache, neurologic deficits, visual changes, chest pain, shortness of breath, back pain, other symptoms. He has not taken any medications for this. He noted a large lump on his left hip thus called 911 for evaluation. Patient is on Eliquis. ROS: See above HPI for pertinent positives & negatives. A total of 8 systems reviewed and were otherwise negative. Past Medical History:See Below Past Surgical History:See Below Family History:See Below Social History:See Below Home Medications:See Below Allergies:Sulfa Vitals:Blood Pressure: 148/74, Pulse 71, RR 16, T 36.9C, O2 98% on RA Physical Exam: GENERAL: Patient is elderly appearing and in minimal distress. NECK: No posterior TTP. No masses appreciated, nomeningismus, trachea is midline. RESPIRATORY: No dyspnea. Clear to auscultation and equal bilaterally. No wheeze, no rhonchi. CARDIOVASCULAR: Regular rate and rhythm.No murmurs, rubs, gallops appreciated. EXTREMITIES: moderate hematoma left hip area, non-tender, Full ROM hip and distal but pain on flexion at hip, primarily medially. Otherwise normal motion all extremities, no cyanosis, no edema. NEUROLOGIC: Alert and oriented, no acute motor or sensory deficits, no focal weakness, cranial nerves grossly intact. SKIN: No rash, no jaundice, no diaphoresis. PSYCH: Appropriate GCS: 15 ED Course: Times/Reassessments: Looks well no distress and breathing comfortably. Hospitalization. 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 Osteoarthritis Pancreatic cyst Surgical History History of cataract surgery History of colonoscopy History of left hip replacement History of right hip replacement History of right mastectomy History of surgery removal loose body x 2 LLE Family History Other No family history of adverse response to anesthesia Denies family history of Ovarian cancer Prostate cancer Breast cancer Lung cancer Colorectal cancer Social History Smoking Status: Never smoker Second Hand Exposure: No; Hx Alcohol Use: No Hx Substance Use: No Preferred Language: Nepali Communication Ability: Effective Butter Printer Required: No Beliefs That Will Affect Care: None marital status: / Current Living Situation: Alone Current Living Situation Comment: home alone w/out any type of services or assistive devices. 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 How many Children do You have Comment: one son Other Information That Helps Us Care for You: No Feels Safe at Home: Yes Safety Concerns: Feels Safe At This Time Seatbelt Use: always Sunscreen Use: No Assistive Devices: None Allergies Allergies Allergy/AdvReac Type Severity Reaction Status Date / Time Sulfa (Sulfonamide Allergy Intermediate HIVES Verified 09/26/21 13:49 Antibiotics) Home Meds Home Medications Medication Instructions Recorded Confirmed vit C,D-Oy-stzmbz-lutein-zeaxan 60 1 cap PO QAM 01/03/19 09/26/21 mg-13.5 mg-15 mg-2 mg-6 mg capsule (Ocuvite Lutein and Zeaxanthin) indapamide 1.25 mg tablet 1.25 mg PO QAM tab 02/04/21 09/26/21 atorvastatin 20 mg tablet 10 mg PO HS 08/31/21 09/26/21 levothyroxine 50 mcg capsule 50 mcg PO DAILYBB 08/31/21 09/26/21 metoprolol succinate 25 mg 25 mg PO QAM 08/31/21 09/26/21 tablet,extended release 24 hr levothyroxine 50 mcg tablet 50 mcg PO QAM 09/26/21 09/26/21 (Euthyrox) Previous Rx's Medication Instructions Recorded apixaban 2.5 mg tablet (Eliquis) 2.5 mg PO BID #180 tab 09/23/20 simethicone 80 mg chewable tablet 80 mg PO QID PRN #20 tab 08/31/21 Results & Data (ED) Vital Signs Vital Signs - 24 hr 09/26/21 13:29 09/26/21 15:27 Temperature 36.9 C 37 C Temperature Source Oral Oral Pulse Rate 71 Pulse Rate [Finger] 71 78 Pulse Rhythm [Finger] Regular Regular Pulse Strength [Finger] Normal Respiratory Rate 16 18 Respiratory Effort / Characteristics Non-Labored Spontaneous Non-Labored Respiratory Depth Normal Normal Blood Pressure 148/74 H Blood Pressure [Right Arm] 148/74 H 132/72 Blood Pressure Mean 98 Blood Pressure Mean [Right Arm] 98 92 Blood Pressure Position Lying Blood Pressure Position [Right Arm] Sitting Lying Pulse Oximetry 98 98 Oxygen Delivery Method Room Air Room Air Sepsis Recent Fever Within 48 Hours No Sepsis New/Unexplained Change in Mental Status No Sepsis Action Taken by Nursing No Action Required Laboratory Data Result diagrams: 09/27/21 06:24 09/27/21 06:24 Lab Results 09/26/21 09/26/21 Range/Units 15:06 15:06 WBC 12.90 H (4.8-10.8) K/uL RBC 3.62 L (4.7-6.1) M/uL Hgb 11.5 L (14.0-18.0) g/dL Hct 34.7 L (42-52) % MCV 95.9 (80-100) fL MCH 31.8 (25-34) pg MCHC 33.1 (32-36) g/dL RDW Std Deviation 52.1 H (36.4-46.3) fL RDW Coeff of Gilbert 14.8 H (11.5-14.5) % Plt Count 135 (130-400) K/uL MPV 9.7 (7.4-10.4) fL Immature Gran % (Auto) 0.5 % Neut % (Auto) 85.4 % Lymph % (Auto) 5.3 % [place] % (Auto) 8.4 % Eos % (Auto) 0.2 % Baso % (Auto) 0.2 % Neut # (Auto) 11.02 H (1.4-6.5) K/uL Lymph # (Auto) 0.69 L (1.2-3.4) K/uL [place] # (Auto) 1.08 H (0.11-0.59) K/uL Eos # (Auto) 0.02 (0-0.5) K/uL Baso # (Auto) 0.02 (0-0.2) K/uL Immature Gran # (Auto) 0.07 H (0.00-0.02) K/uL Sodium 133 L (136-145) mmol/L Potassium 4.2 (3.5-5.1) mmol/L Chloride 98 (98-107) mmol/L Carbon Dioxide 28 (21-32) mmol/L Anion Gap 7 (3-11) BUN 21 (6-23) mg/dl Creatinine 1.39 (0.6-1.4) mg/dl Est Cr Clr Drug Dosing 43.3 ml/min Est GFR ( Amer) 52.8 ml/min Est GFR (Non-Af Amer) 45.6 ml/min BUN/Creatinine Ratio 15.1 (10-20) Glucose 195 H (70-99(Fasting)) mg/dl Calcium 9.1 (8.5-10.1) mg/dl Magnesium 2.0 (1.7-2.4) mg/dl Administered Medications Atorvastatin Calcium (Atorvastatin 10 Mg Tab) 10 mg PO HS NELLI Stop: 10/26/21 20:59 Last Admin: 09/26/21 21:55 Dose: 10 mg Documented by: [id number] Docusate Sodium (Docusate Sodium 100 Mg Cap) 100 mg PO BID NELLI Stop: 10/26/21 23:14 Last Admin: 09/27/21 08:27 Dose: 100 mg Documented by: [id number] Admin: 09/26/21 23:29 Dose: 100 mg Documented by: [id number] Sodium Chloride (Nss 1000ml) 1,000 mls @ 80 mls/hr IV .[id number] NELLI Stop: 10/26/21 17:32 Last Admin: 09/27/21 05:42 Dose: 80 mls/hr Documented by: [id number] Infusion: 09/27/21 05:42 Dose: 80 mls/hr Documented by: [id number] Admin: 09/26/21 18:07 Dose: 80 mls/hr Documented by: [id number] Indapamide (Indapamide 1.25 Mg Tab) 1.25 mg PO QAM NELLI Stop: 10/27/21 08:59 Last Admin: 09/27/21 08:27 Dose: 1.25 mg Documented by: [id number] Insulin Aspart (Insulin Aspart Per Unit) 0 units SC ACHS NELLI Stop: 10/26/21 18:14 Last Admin: 09/27/21 08:33 Dose: Not Given Documented by: [id number] Admin: 09/26/21 22:01 Dose: 1 units Documented by: [id number] Cosigned by: [id number] Admin: 09/26/21 18:55 Dose: Not Given Documented by: [id number] Cosigned by: [id number] Levothyroxine Sodium (Levothyroxine Sodium 50 Mcg Tablet) 50 mcg PO DAILYBB [facility] Stop: 10/27/21 06:29 Last Admin: 09/27/21 05:42 Dose: 50 mcg Documented by: [id number] Metoprolol Succinate (Metoprolol Succ 25mg Ext Rel Tab) 25 mg PO QAM [facility] Stop: 10/27/21 08:59 Last Admin: 09/27/21 08:26 Dose: 25 mg Documented by: [id number] Multivitamins/Minerals (Cerovite Adv Formula Tab) 1 tab PO QAM NELLI Stop: 10/27/21 08:59 Last Admin: 09/27/21 08:36 Dose: Not Given Documented by: [id number] Polyethylene Glycol (Polyethylene (Miralax) 17 Gm Pack) 17 gm PO DAILY PRN PRN Reason: Constipation Stop: 10/26/21 17:32 Last Admin: 09/27/21 08:52 Dose: 17 gm Documented by: [id number] Discontinued Medications Temazepam (Temazepam 15 Mg Capsule) 15 mg PO HSZ ONE Stop: 09/26/21 23:15 Last Admin: 09/26/21 23:29 Dose: 15 mg Documented by: [id number] Imaging Data Radiologist's Impression: Femur X-Ray 09/26/21 13:16 XR femur LT 2V routine CLINICAL HISTORY: left hip pain s/p fall COMPARISON: CT of the abdomen and pelvis August 31, 2021. FINDINGS: Alignment of the total left hip arthroplasty is anatomic. A cerclage wire is in place. No acute left femoral fracture is present. There is an acute displaced fracture of the left superior pubic ramus. Possible acute nondisplaced fracture of the left inferior pubic ramus. Alignment of the left knee is anatomic. There is a small to moderate left knee joint effusion. Moderate left knee osteoarthritis is present. IMPRESSION: 1. No acute left femoral fracture. Anatomic alignment of total left hip arthroplasty. 2. Acute displaced fracture of the left superior pubic ramus. Possible acute nondisplaced fracture of the left inferior pubic ramus. 3. Left knee osteoarthritis with a [id number]-tg-mwenzxcy joint effusion. ACT 112: Negative or not required by law. Electronically signed by: Elmer Galan M.D. 09/26/2021 2:52 PM Pelvis X-Ray 09/26/21 13:16 XR pelvis 1-2V routine CLINICAL HISTORY: Left hip pain following fall. COMPARISON: Pelvis radiograph December 12, 2013. CT of the abdomen and pelvis August 31, 2021. FINDINGS: Alignment of the total bilateral hip arthroplasties is anatomic. A left-sided cerclage wire is in place. There is an acute comminuted mildly displaced fracture of the left superior pubic ramus. There may be an acute nondisplaced fracture of the left inferior pubic ramus. No acute right pubic ring fractures are present. IMPRESSION: 1. Acute comminuted displaced fracture of the left superior pubic ramus. Possible acute nondisplaced fracture of the left inferior pubic ramus. 2. Intact total bilateral hip arthroplasties. ACT 112: Negative or not required by law. Electronically signed by: Elmer Galan M.D. 09/26/2021 2:49 PM Discharge Plan Visit Data Chief Complaint: Hip Pain Stated Complaint: GLF, L hip pain ED Provider: Goran Bejarano Discharge Problem: Fracture of left pelvis, Closed fracture of single pubic ramus of pelvis, Hematoma of left hip Patient Disposition: Admitted As Inpatient Discharge Instructions Interventions: ED Discharge Assessment Last Done: 09/26/21 17:11 Discharge Problem: Fracture of left pelvis Qualifiers: Encounter type: initial encounter Pelvic bone location: pubis Fracture type: closed Fracture alignment: displaced Qualified Code(s): S32.502A - Unspecified fracture of left pubis, initial encounter for closed fracture Closed fracture of single pubic ramus of pelvis Qualifiers: Encounter type: initial encounter Laterality: left Qualified Code(s): S32.592A - Other specified fracture of left pubis, initial encounter for closed fracture Hematoma of left hip Qualifiers: Encounter type: initial encounter Qualified Code(s): S70.02XA - Contusion of left hip, initial encounter
--- NOTE | 2021-09-26 14:51 | XRay Report ---
XR pelvis 1-2V routine CLINICAL HISTORY: Left hip pain following fall. COMPARISON: Pelvis radiograph December 12, 2013. CT of the abdomen and pelvis August 31, 2021. FINDINGS: Alignment of the total bilateral hip arthroplasties is anatomic. A left-sided cerclage wir e is in place. There is an acute comminuted mildly displaced fracture of the left superior pubic josh s. There may be an acute nondisplaced fracture of the left inferior pubic ramus. No acute right pubic ring fractures are present. IMPRESSION: 1. Acute comminuted displaced fracture of the left superior pubic ramus. Possible acute nondisplaced fracture of the left inferior pubic ramus. 2. Intact total bilateral hip arthroplasties. ACT 112: Negative or not required by law. Electronically signed by: Elmer Galan M.D. 09/26/2021 2:49 PM
--- NOTE | 2021-09-26 14:53 | XRay Report ---
XR femur LT 2V routine CLINICAL HISTORY: left hip pain s/p fall COMPARISON: CT of the abdomen and pelvis August 31, 2021. FINDINGS: Alignment of the total left hip arthroplasty is anatomic. A cerclage wire is in place. No acute left femoral fracture is present. There is an acute displaced fracture of the left superior pub ic ramus. Possible acute nondisplaced fracture of the left inferior pubic ramus. Alignment of the lef t knee is anatomic. There is a small to moderate left knee joint effusion. Moderate left knee osteoar thritis is present. IMPRESSION: 1. No acute left femoral fracture. Anatomic alignment of total left hip arthroplasty. 2. Acute displaced fracture of the left superior pubic ramus. Possible acute nondisplaced fracture of the left inferior pubic ramus. 3. Left knee osteoarthritis with a tbaxi-wa-ofypszjz joint effusion. ACT 112: Negative or not required by law. Electronically signed by: Elmer Galan M.D. 09/26/2021 2:52 PM
--- NOTE | 2021-09-26 15:30 | History & Physical Report ---
Date of Service September 26, 2021 Assessment & Plan (1) Fracture of left pelvis: Plan: Mechanical Fall -- tripped and fell off a step to ground and landed on LEFT hip Denies LOC/hitting head On admission, CT head obtained given on eliquis --> NEGATIVE CT cervical spine NEGATIVE Xray with: Acute comminuted displaced fracture of the left superior pubic ramus. Possible acute nondisplaced fracture of the left inferior pubic ramus. CT pelvis pending Orthopedics consult, but likely non-operative Pain control, antiemetics prn Gentle IVF for minimal dehydration on exam, monitor (also with hyponatremia Na 130 but improved from prior last month 127 for c-scope) WBC elevation to 12.9k but suspect 2nd to acute stress/fracture. Denied any fever/chills. Afebrile. No sob/CP or abdominal discomfort. Monitor for now UA pending PT/OT to be consulted CM to follow -- likely need inpatient vs home health/PT (2) Hematoma of left hip: Plan: holding eliquis for now given hematoma, monitor on telemetry. SCDs for DVT prophylaxis and remains rate controlled (3) Atrial fibrillation: Plan: Eliquis on hold as above, hgb 11.5 on admission with baseline hgb ~13s Rates in 70-80s, denied CP/SOB. Mag 2.0 and keep >2 given holding eliquis (4) Anemia: Plan: baseline hgb in 13s, recent c-scope unremarkable hgb 11.5 on admission monitor CBC w/ hematoma (5) Hypertension: Plan: BP stable On indapamide 1.25mg, metoprolol succinate 25mg daily --> to resume tomorrow. Could hold AM indapamide in AM if needed but BP stable 132/72 (6) Dyslipidemia: Plan: continue atorvastatin 10mg HS (7) Chronic kidney disease, stage III (moderate): Plan: Baseline cr appears to be 1.5-1.8 BMP pending Renal dose meds/avoid nephrotoxic medications when possible (8) Hypothyroidism: Plan: TSH 3 earlier this year. Does have hyponatremia but improved from prior continue home levothyroxine 50mcg daily (9) Type 2 diabetes mellitus: Plan: A1c 7.1 however not on medications at home BSG AC/HS, SSI while inpatient Monitor History of Present Illness Chief Complaint: hip pain s/p fall Primary Care Provider: Raffi Alva MD 86 yo male with PMHx aflutter (on Eliquis), DM II, HTN, HLD, Leukemia (in remission), breast ca, OA, gout, CKD III, constipation presented after mechanical fall, falling on his LEFT hip. Initially planned for discharge from ER, but possible some benefit from PT/OT evaluations as no family in the area and son lives in [place]. Had been walking down steps and lost his footing on the right, resulting in a fall to onto his left hip. Denies hitting his head or loss of consciousness. Has some bruising to his L shoulder but states that is old. Imaging revealed a pubic rami fracture, likely non-operative. He states no pain at rest, only with movement. Has ice pack currently in place. Prior hip replacements done at [facility]. Did rehab and then went to [facility] following for rehab. Agreeable to monitor overnight/PT/OT evaluations and possible rehab vs home therapy pending how he does. Typically very active and lives alone. Not wanting to stay overnight initially but agreeable given finding and lives alone. Just got back from CT head/pelvis/cervical spine. No fever/chills, chest pain, shortness of breath, palpitations, abdominal pain, nausea, vomiting or dysuria at this time. Hx afib but rate well controlled. Allergies Allergy/AdvReac Type Severity Reaction Status Date / Time Sulfa (Sulfonamide Allergy Intermediate HIVES Verified 09/26/21 13:49 Antibiotics) Home Medications Medication Instructions Recorded Confirmed Type vit C,N-Te-mawvta-lutein-zeaxan 60 1 cap PO QAM 01/03/19 09/26/21 History mg-13.5 mg-15 mg-2 mg-6 mg capsule (Ocuvite Lutein and Zeaxanthin) atorvastatin 20 mg tablet 10 mg PO HS 08/31/21 09/26/21 History metoprolol succinate 25 mg 25 mg PO QAM 08/31/21 09/26/21 History tablet,extended release 24 hr simethicone 80 mg chewable tablet 80 mg PO QID PRN #20 tab 08/31/21 09/26/21 Rx levothyroxine 50 mcg tablet 50 mcg PO QAM 09/26/21 09/26/21 History (Euthyrox) acetaminophen 325 mg tablet 650 mg PO Q4H PRN #60 tab 10/01/21 Rx ferrous sulfate 325 mg (65 mg 325 mg PO Q OTHER DAY #14 tab 10/01/21 Rx iron) tablet Past Med/Surg History Medical History 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 Osteoarthritis Pancreatic cyst Surgical History History of cataract surgery History of colonoscopy History of left hip replacement History of right hip replacement History of right mastectomy History of surgery removal loose body x 2 LLE Family History Other No family history of adverse response to anesthesia Denies family history of Ovarian cancer Prostate cancer Breast cancer Lung cancer Colorectal cancer Social History Smoking Status: Never smoker Second Hand Exposure: No; Hx Alcohol Use: No Hx Substance Use: No Preferred Language: Pashto Communication Ability: Effective Field Identification Specialist Required: No Beliefs That Will Affect Care: None marital status: / Current Living Situation: Alone Current Living Situation Comment: home alone w/out any type of services or assistive devices. 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 How many Children do You have Comment: one son Feels Safe at Home: Yes Seatbelt Use: always Sunscreen Use: No Assistive Devices: Cane and Walker Review of Systems Review of Systems: All systems reviewed & are unremarkable except as noted in HPI & below Physical Exam Physical Exam: General: WD/WN elderly frail male sitting in bed, NAD, general pallor HEENT: head normocephalic, atraumatic, mm sligghtly dry, trachea midline without deviation Resp: CTAB, no accesory muscle use, no w/c/r, on room air CV: irregularly irregular, no m/r/g, no edema, pulses palpable bilaterally GI: +BS, soft, non-tender, no guarding or rigidity : no castrejon MSK/Neuro: moves all extremities, CN intact grossly, answering questions appropriately, no facial droop, pronator drift, L hip tender to palpation along with left lateral THIGH tenderness to palpation, +hematoma, no shortening/external rotation noted, strength equal bilaterally, full ROM L shoulder Psych: alert, oriented x3, pleasant and cooperative Skin: small area of ecchymosis to L shoulder, non-tender Results & Data Results & Data ([facility]) Vital Signs (Past 12 Hours) Vital Signs Temp Pulse Pulse Resp BP BP Pulse Ox 09/26/21 13:29 36.9 C 71 71 16 148/74 H 148/74 H 98 Laboratory Results 09/26/21 09/26/21 09/26/21 Range/Units 15:46 15:06 15:06 WBC 12.90 H (4.8-10.8) K/uL RBC 3.62 L (4.7-6.1) M/uL Hgb 11.5 L (14.0-18.0) g/dL Hct 34.7 L (42-52) % MCV 95.9 (80-100) fL MCH 31.8 (25-34) pg MCHC 33.1 (32-36) g/dL RDW Std Deviation 52.1 H (36.4-46.3) fL RDW Coeff of Gilbert 14.8 H (11.5-14.5) % Plt Count 135 (130-400) K/uL MPV 9.7 (7.4-10.4) fL Immature Gran % (Auto) 0.5 % Neut % (Auto) 85.4 % Lymph % (Auto) 5.3 % Cook % (Auto) 8.4 % Eos % (Auto) 0.2 % Baso % (Auto) 0.2 % Neut # (Auto) 11.02 H (1.4-6.5) K/uL Lymph # (Auto) 0.69 L (1.2-3.4) K/uL Cook # (Auto) 1.08 H (0.11-0.59) K/uL Eos # (Auto) 0.02 (0-0.5) K/uL Baso # (Auto) 0.02 (0-0.2) K/uL Immature Gran # (Auto) 0.07 H (0.00-0.02) K/uL Sodium 133 L (136-145) mmol/L Potassium 4.2 (3.5-5.1) mmol/L Chloride 98 (98-107) mmol/L Carbon Dioxide 28 (21-32) mmol/L Anion Gap 7 (3-11) BUN 21 (6-23) mg/dl Creatinine 1.39 (0.6-1.4) mg/dl Est Cr Clr Drug Dosing 43.3 ml/min Est GFR ( Amer) 52.8 ml/min Est GFR (Non-Af Amer) 45.6 ml/min BUN/Creatinine Ratio 15.1 (10-20) Glucose 195 H (70-99(Fasting)) mg/dl Calcium 9.1 (8.5-10.1) mg/dl Magnesium 2.0 (1.7-2.4) mg/dl SARS-CoV-2, RNA, NAAT Pending Diagnostic Findings Femur X-Ray 09/26/21 13:16 XR femur LT 2V routine CLINICAL HISTORY: left hip pain s/p fall COMPARISON: CT of the abdomen and pelvis August 31, 2021. FINDINGS: Alignment of the total left hip arthroplasty is anatomic. A cerclage wire is in place. No acute left femoral fracture is present. There is an acute displaced fracture of the left superior pubic ramus. Possible acute nondisplaced fracture of the left inferior pubic ramus. Alignment of the left knee is anatomic. There is a small to moderate left knee joint effusion. Moderate left knee osteoarthritis is present. IMPRESSION: 1. No acute left femoral fracture. Anatomic alignment of total left hip arthroplasty. 2. Acute displaced fracture of the left superior pubic ramus. Possible acute nondisplaced fracture of the left inferior pubic ramus. 3. Left knee osteoarthritis with a [id number] joint effusion. ACT 112: Negative or not required by law. Electronically signed by: Elmer Galan M.D. 09/26/2021 2:52 PM Pelvis X-Ray 09/26/21 13:16 XR pelvis 1-2V routine CLINICAL HISTORY: Left hip pain following fall. COMPARISON: Pelvis radiograph December 12, 2013. CT of the abdomen and pelvis August 31, 2021. FINDINGS: Alignment of the total bilateral hip arthroplasties is anatomic. A left-sided cerclage wire is in place. There is an acute comminuted mildly displaced fracture of the left superior pubic ramus. There may be an acute nondisplaced fracture of the left inferior pubic ramus. No acute right pubic ring fractures are present. IMPRESSION: 1. Acute comminuted displaced fracture of the left superior pubic ramus. Possible acute nondisplaced fracture of the left inferior pubic ramus. 2. Intact total bilateral hip arthroplasties. ACT 112: Negative or not required by law. Electronically signed by: Elmer Galan M.D. 09/26/2021 2:[address] 09/26/21 14:55 CT OF THE CERVICAL SPINE WITHOUT CONTRAST CLINICAL HISTORY: fall COMPARISON STUDY: No previous studies for comparison. TECHNIQUE: Helical axial images of the cervical spine were obtained without IV contrast. Sagittal and coronal reconstructions were viewed. Automated exposure control was utilized for the study. A dose lowering technique was utilized adhering to the principles of ALARA. FINDINGS: There is reversal of the normal cervical lordosis. Slight anterolisthesis of C3 on C4 is likely due to severe facet arthrosis. There is slight retrolisthesis of C4 on C5. Severe multilevel facet arthrosis is noted. Severe disc space narrowing is most pronounced at the C4-C5 level. Central canal and neural foramen are suboptimally assessed by CT. Extensive degenerative jamar nges with pannus formation at C1-C2 articulation are noted. No prevertebral edema is present. No facet dislocation is present. IMPRESSION: No acute cervical spine fracture or subluxation. Severe multilevel degenerative changes within the cervical spine. ACT 112: Negative or not required by law. Electronically signed by: Elmer Galan M.D. 09/26/2021 3:[address] 09/26/21 14:55 CT OF THE HEAD WITHOUT CONTRAST CLINICAL HISTORY: fall, on eliquis COMPARISON STUDY: Head CT August 08, 2008. TECHNIQUE: Helical axial images of the head were obtained without IV contrast. Automated exposure control was utilized for the study. A dose lowering technique was utilized adhering to the principles of ALARA. FINDINGS: No acute intracranial hemorrhage, midline shift or mass effect is present. Mild ventricular dilatation is due to central atrophy. The basal cisterns are patent. No extra-axial collections are present. There are no findings to suggest acute dural sinus thrombosis or acute territorial infarct. No significant calvarial abnormalities are present. There is mild sinus mucosal thickening. IMPRESSION: 1. No acute intracranial findings. 2. No acute calvarial fracture. ACT 112: Negative or not required by law. Electronically signed by: Elmer Galan M.D. 09/26/2021 3:49 PM Supervising Physician Co-Signing Physician Notes During face to face encounter, obtained physical exam and history of present illness. Discussed plan of care with patient and APC Марина. Reviewed above note and agree with it. Patient will be admitted for fall and consult PT/OT for possible placement. PG Care Time/CCT Total # of Minutes Spent Total Time Spent with Patient: Total time spent is greater than 50% in coordination of care (as documented) at patient's floor/unit and/or counseling patient: Coding Level of Care Code INT OBSERVATION CARE 70M LVL 3 Diagnoses Fracture of left pelvis S32.502A Encounter type: initial encounter Fracture alignment: displaced Fracture type: closed Pelvic bone location: pubis Hematoma of left hip S70.02XA Encounter type: initial encounter Atrial fibrillation I48.91 Anemia D64.9 Type 2 diabetes mellitus E11.9 Dyslipidemia E78.5 Hypertension I10 Chronic kidney disease, stage III (moderate) N18.30 Hypothyroidism E03.9 (1) Fracture of left pelvis Encounter type: initial encounter Fracture alignment: displaced Fracture type: closed Pelvic bone location: pubis Qualified Code(s): S32.502A - Unspecified fracture of left pubis, initial encounter for closed fracture (2) Hematoma of left hip Encounter type: initial encounter Qualified Code(s): S70.02XA - Contusion of left hip, initial encounter
[2021-09-26 15:42] LABS: BUN Creatinine Ratio 15.1 (10-20); Calcium 9.1 mg/dl (8.5-10.1); Creatinine Clr Calc Pharmacy 43.3 ml/min; Est GFR (African American) 52.8 ml/min; Est GFR (Non-African American) 45.6 ml/min; Potassium 4.2 mmol/L (3.5-5.1)
[2021-09-26] MEDS ORDERED: ACETAMINOPHEN 500 MG TAB PO PRN (15:45)
--- NOTE | 2021-09-26 15:51 | CT Scan Report ---
CT OF THE HEAD WITHOUT CONTRAST CLINICAL HISTORY: fall, on eliquis COMPARISON STUDY: Head CT August 08, 2008. TECHNIQUE: Helical axial images of the head were obtained without IV contrast. Automated exposure con trol was utilized for the study. A dose lowering technique was utilized adhering to the principles o f ALARA. FINDINGS: No acute intracranial hemorrhage, midline shift or mass effect is present. Mild ventricular dilatation is due to central atrophy. The basal cisterns are patent. No extra-axial collections are present. There are no findings to suggest acute dural sinus thrombosis or acute territorial infarct. No significant calvarial abnormalities are present. There is mild sinus mucosal thickening. IMPRESSION: 1. No acute intracranial findings. 2. No acute calvarial fracture. ACT 112: Negative or not required by law. Electronically signed by: Elmer Galan M.D. 09/26/2021 3:49 PM
--- NOTE | 2021-09-26 15:52 | CT Scan Report ---
CT OF THE CERVICAL SPINE WITHOUT CONTRAST CLINICAL HISTORY: fall COMPARISON STUDY: No previous studies for comparison. TECHNIQUE: Helical axial images of the cervical spine were obtained without IV contrast. Sagittal a nd coronal reconstructions were viewed. Automated exposure control was utilized for the study. A do se lowering technique was utilized adhering to the principles of ALARA. FINDINGS: There is reversal of the normal cervical lordosis. Slight anterolisthesis of C3 on C4 is li adolph due to severe facet arthrosis. There is slight retrolisthesis of C4 on C5. Severe multilevel fac et arthrosis is noted. Severe disc space narrowing is most pronounced at the C4-C5 level. Central can al and neural foramen are suboptimally assessed by CT. Extensive degenerative changes with pannus for mation at C1-C2 articulation are noted. No prevertebral edema is present. No facet dislocation is pre sent. IMPRESSION: No acute cervical spine fracture or subluxation. Severe multilevel degenerative changes w ithin the cervical spine. ACT 112: Negative or not required by law. Electronically signed by: Elmer Galan M.D. 09/26/2021 3:51 PM
[2021-09-26 15:56] LABS: Basophils # (auto) 0.02 K/uL (0-0.2); Basophils % (auto) 0.2 %; Eosinophils # (auto) 0.02 K/uL (0-0.5); Eosinophils % (auto) 0.2 %; Hematocrit (blood only) 34.7 % (42-52); Hemoglobin 11.5 g/dL (14.0-18.0); Immature Granulocytes # (auto) 0.07 K/uL (0.00-0.02); Immature Granulocytes % (auto) 0.5 %; Lymphocytes # (auto) 0.69 K/uL (1.2-3.4); Lymphocytes % (auto) 5.3 %; Mean Corpuscular Hemoglobin 31.8 pg (25-34); Mean Corpuscular Hgb Conc 33.1 g/dL (32-36); Mean Corpuscular Volume 95.9 fL (80-100); Mean Platelet Volume 9.7 fL (7.4-10.4); Monocytes # (auto) 1.08 K/uL (0.11-0.59); Monocytes % (auto) 8.4 %; Neutrophils # (auto) 11.02 K/uL (1.4-6.5); Neutrophils % (auto) 85.4 %; Platelet Count 135 K/uL (130-400); RDW Coefficient of Variation 14.8 % (11.5-14.5); RDW Standard Deviation 52.1 fL (36.4-46.3); Red Blood Count 3.62 M/uL (4.7-6.1)
--- NOTE | 2021-09-26 16:06 | CT Scan Report ---
CT pelvis wo con CLINICAL HISTORY: fall, left pelvic injury COMPARISON STUDY: Pelvis and left hip radiographs performed earlier today. CT of the abdomen and pel vis August 31, 2021. TECHNIQUE: Axial images of the pelvis and hips were obtained without IV contrast. Sagittal and partida l reconstructions were viewed. Automated exposure control was utilized for the study. A dose lowerin g technique was utilized adhering to the principles of ALARA. FINDINGS: Alignment of the total bilateral hip arthroplasties is anatomic. Extensive osteophytosis is chronic. No periprosthetic fracture is noted. Left-sided cerclage wire is in place. Note is made of an acute comminuted moderately displaced fracture of the left superior pubic ramus. There is also an acute mildly displaced fracture of the left inferior pubic ramus. Moderate amount of adjacent intramu scular hemorrhage is noted. There is a 6.2 x 3.7 cm focus of intramuscular hemorrhage within the left obturator internus. There is also hemorrhage within the adjacent left adductor musculature. Mild to moderate amount of hemorrhage within the space of Retzius is present. Images are degraded by streak a rtifact from bilateral hip arthroplasties. There is a minimally displaced fracture of the left sacral ala, probably acute. No additional acute fractures are identified. There are no suspicious osseous l esions. Note is made of a contusion within the subcutaneous tissues of the lateral left thigh which m easures 6 x 5.2 cm. IMPRESSION: 1. Acute moderately displaced comminuted fracture of the left superior pubic ramus. Acute mildly disp laced fracture of the left inferior pubic ramus. Moderate adjacent intramuscular hemorrhage. Small to moderate amount of hemorrhage within the space of Retzius. 2. Intact total bilateral hip arthroplasties. No periprosthetic fracture. 3. Minimally displaced fracture of the left sacral ala, probably acute. 4. 6 x 5.2 cm subcutaneous lateral left thigh subcutaneous contusion/hematoma. ACT 112: Negative or not required by law. Electronically signed by: Elmer Galan M.D. 09/26/2021 4:03 PM
[2021-09-26] MEDS ORDERED: MAGNESIUM HYDROXIDE SUSP 30 ML UDC PO PRN (17:33)
[2021-09-26] MEDS ORDERED: GLUCAGON FOR INJ 1 MG VIAL SQ PRN (17:33)
[2021-09-26] MEDS ORDERED: ALUMINUM/MAGNESIUM SUSP 30 ML UDC PO PRN (17:33)
[2021-09-26] MEDS ORDERED: SIMETHICONE 80 MG CHEW PO PRN (17:33)
[2021-09-26] MEDS ORDERED: CARBOHYDRATES FOR HYPOGLYCEMIA PO PRN (17:33)
[2021-09-26] MEDS ORDERED: GLUCOSE 10 TABS/TUBE PO PRN (17:33)
[2021-09-26] MEDS ORDERED: POLYETHYLENE (MIRALAX) 17 GM PACK PO PRN (17:33)
[2021-09-26] MEDS ORDERED: oxyCODONE HCL IR 5 MG TAB (IMMEDIATE RELEASE) PO PRN (17:33)
[2021-09-26] MEDS ORDERED: MoRPHine SULFATE 2 MG/ML CARP IV PRN (17:33)
[2021-09-26] MEDS ORDERED: ONDANSETRON INJ 2 MG/ML 2 ML VIAL IV PRN (17:33)
[2021-09-26] MEDS ORDERED: GLUCOSE 40% GEL 15 GM TUBE PO PRN (17:33)
[2021-09-26] MEDS ORDERED: DEXTROSE 50% 50 ML SYRINGE IV PRN (17:33)
[2021-09-26] MEDS ORDERED: ACETAMINOPHEN 325 MG TAB PO PRN (17:33)
[2021-09-26] MEDS: SODIUM CHLORIDE 0.9% 1000ML 1,000 ML IV SCH (18:07)
--- NOTE | 2021-09-26 18:17 | Orthopedic Consultation ---
Date of Service September 26, 2021 Assessment & Plan (1) Fracture of left pelvis: The pelvis fracture is a stable pelvis fracture. He can weight-bear as tolerated on this. He is can have pain for the first couple weeks we will gradually heal over by 3-month period of time. He can begin mobilizing weight- bear as tolerated. He should have follow-up in a month unless there is need for draining his hematoma. (2) Hematoma of left hip: He has a pretty significant hematoma. I think hold the Eliquis for 72 hours is appropriate. Ice is appropriate. We may need to drain this at some point but I would wait until the fluid stops accumulating up. Might helpful for me to be off his Eliquis for 24 hours before any aspiration. This can be done as an outpatient as well if needed. No surgical indication. Once again he can weight-bear as tolerated. He can begin PT and OT. History of Present Illness Reason for Consultation: . Left-sided pelvis fracture. Requesting Physician: . Attending Physician: Jamal Crooks . Patient is an 86-year-old gentleman who sustained a fall earlier this morning. About 1030 he was descending the steps when he got to the bottom, lost his balance and fell on his left side. He put his hand out to block him and protect himself but landed on his left hip. Acute onset of hip pain. Describes lateral hip pain and groin pain. Does have a history of a hip replacement done by Dr. Hampton in [facility] in the past. No pre-existing hip problem prior to this. Denies any other injuries. He does have a bruise on his left shoulder that he says been there for couple weeks. He is on Eliquis for atrial fib rillation and thrombosis prevention Allergies Allergy/AdvReac Type Severity Reaction Status Date / Time Sulfa (Sulfonamide Allergy Intermediate HIVES Verified 09/26/21 13:49 Antibiotics) Home Medications Medication Instructions Recorded Confirmed Type vit C,E-Eh-djurpk-lutein-zeaxan 60 1 cap PO QAM 01/03/19 09/26/21 History mg-13.5 mg-15 mg-2 mg-6 mg capsule (Ocuvite Lutein and Zeaxanthin) apixaban 2.5 mg tablet (Eliquis) 2.5 mg PO BID #180 tab 09/23/20 09/26/21 Rx indapamide 1.25 mg tablet 1.25 mg PO QAM tab 02/04/21 09/26/21 History atorvastatin 20 mg tablet 10 mg PO HS 08/31/21 09/26/21 History levothyroxine 50 mcg capsule 50 mcg PO DAILYBB 08/31/21 09/26/21 History metoprolol succinate 25 mg 25 mg PO QAM 08/31/21 09/26/21 History tablet,extended release 24 hr simethicone 80 mg chewable tablet 80 mg PO QID PRN #20 tab 08/31/21 09/26/21 Rx levothyroxine 50 mcg tablet 50 mcg PO QAM 09/26/21 09/26/21 History (Euthyrox) Past Med/Surg History Medical History 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 Osteoarthritis Pancreatic cyst Surgical History History of cataract surgery History of colonoscopy History of left hip replacement History of right hip replacement History of right mastectomy History of surgery removal loose body x 2 LLE Family History Other No family history of adverse response to anesthesia Denies family history of Ovarian cancer Prostate cancer Breast cancer Lung cancer Colorectal cancer Social History Smoking Status: Never smoker Second Hand Exposure: No; Hx Alcohol Use: Yes Alcohol type: beer Hx Substance Use: No Preferred Language: Yakut Communication Ability: Effective Mortgage Broker Required: No Beliefs That Will Affect Care: None marital status: / Current Living Situation: Alone 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 Physical Exam . Physical examination was a pleasant thin elderly male. He is awake alert and oriented and appropriate. Examination of the spine reveals no obvious abnormalities or pain to his cervical thoracic and lumbar spine. Examination of his upper extremities does reveal bruising of his left shoulder with looks to be 10 to 14 days old. He is got diffuse atrophy of his shoulder joint areas. There is no other bruising he is got painless range of motion of his upper extremities. Examination both lower extremities reveals fairly significant hematoma over his left buttock area. Very thin soft tissue envelope. Leg lengths are equal. He has pain with any type of hip motion and it difficulty doing a straight leg r aise on the left. Is got no knee effusion. He is neurologically intact. Results & Data Results & Data Laboratory Results . Diagnostic Findings . Plain x-rays of the pelvis and left femur reveal bilateral hip replacements. He does have a superior and inferior pubic ramus fracture on the left which looks acute appears got diffuse osteopenia. Advanced left knee arthritis. PG Care Time/CCT Total # of Minutes Spent Total Time Spent with Patient: Total time spent is greater than 50% in coordination of care (as documented) at patient's floor/unit and/or counseling patient: Coding Level of Care Code 86016 Inpt Consult Level 4 Diagnoses Fracture of left pelvis S32.502A Encounter type: initial encounter Fracture alignment: displaced Fracture type: closed Pelvic bone location: pubis Hematoma of left hip S70.02XA Encounter type: initial encounter (1) Fracture of left pelvis Encounter type: initial encounter Fracture alignment: displaced Fracture type: closed Pelvic bone location: pubis Qualified Code(s): S32.502A - Unspecified fracture of left pubis, initial encounter for closed fracture (2) Hematoma of left hip Encounter type: initial encounter Qualified Code(s): S70.02XA - Contusion of left hip, initial encounter
[2021-09-26 18:21] LABS: Appearance Urine Clear (Clear); Bacteria Urine Automated Negative (Negative); Bilirubin Urine Negative (Negative); Blood Urine 2+ (Negative); Color Urine Yellow; Epithelial Cell Urine Auto 0-5 /lpf (0-5); Glucose Urine UA 1+ (Negative); Ketones Urine Negative (Negative); Leukocyte Esterase Urine Negative (Negative); Nitrite Urine Negative (Negative); Protein Urine Negative (Negative); Specific Gravity Urine 1.012 (1.000-1.030); Urobilinogen Urine Negative (Negative); WBC Urine Automated 0 /hpf (0-5); pH Urine 6.5 (4.5-7.5)
[2021-09-26] MEDS: INSULIN ASPART PER UNIT SC SCH ×2 (18:55→22:01)
[2021-09-26] MEDS: ATORVASTATIN 10 MG TAB PO SCH (21:55)
[2021-09-26] MEDS ORDERED: TEMAZEPAM 15 MG CAPSULE PO ONE (23:14)
[2021-09-26] MEDS: DOCUSATE SODIUM 100 MG CAP PO SCH (23:29)
[2021-09-27] MEDS: LEVOTHYROXINE SODIUM 50 MCG TABLET PO SCH (05:42)
[2021-09-27] MEDS: SODIUM CHLORIDE 0.9% 1000ML 1,000 ML IV SCH ×2 (05:42→17:38)
[2021-09-27 06:51] LABS: Hematocrit (blood only) 28.6 % (42-52); Hemoglobin 9.6 g/dL (14.0-18.0); Mean Corpuscular Hemoglobin 32.4 pg (25-34); Mean Corpuscular Hgb Conc 33.6 g/dL (32-36); Mean Corpuscular Volume 96.6 fL (80-100); Mean Platelet Volume 9.3 fL (7.4-10.4); Platelet Count 108 K/uL (130-400); RDW Coefficient of Variation 14.5 % (11.5-14.5); Red Blood Count 2.96 M/uL (4.7-6.1); White Blood Count 8.45 K/uL (4.8-10.8)
[2021-09-27 07:25] LABS: BUN Creatinine Ratio 16.4 (10-20); Calcium 8.5 mg/dl (8.5-10.1); Creatinine Clr Calc Pharmacy 39.3 ml/min; Est GFR (African American) 47.4 ml/min; Est GFR (Non-African American) 40.9 ml/min; Magnesium 1.9 mg/dl (1.7-2.4)
[2021-09-27 07:53] LABS: Vitamin D, 25 Hydrox 35.1 ng/ml (30-100)
[2021-09-27 08:18] LABS: Estimated Average Glucose 148 mg/dl; Hemoglobin A1C 6.8 % (4.5-5.6)
[2021-09-27] MEDS: CEROVITE ADV FORMULA TAB PO SCH ×2 (08:26→08:36)
[2021-09-27] MEDS: METOPROLOL SUCC 25MG EXT REL TAB PO SCH (08:26)
[2021-09-27] MEDS: INDAPAMIDE 1.25 MG TAB PO SCH (08:27)
[2021-09-27] MEDS: DOCUSATE SODIUM 100 MG CAP PO SCH ×2 (08:27→21:36)
[2021-09-27] MEDS: INSULIN ASPART PER UNIT SC SCH ×4 (08:33→21:44)
[2021-09-27] MEDS ORDERED: GLYCERIN ADULT 12 SUPP/BOX SUPP PR ONE (17:45)
[2021-09-27] MEDS ORDERED: SOD PHOSPHATE/SOD BIPHOSPHATE ENEMA 132 ML BTL PR PRN (17:51)
[2021-09-27] MEDS ORDERED: bisacodyL 10 MG SUPP PR STA (17:51)
--- NOTE | 2021-09-27 20:46 | Hospitalist Progress Note ---
Date of Service September 27, 2021 Assessment & Plan (1) Fracture of left pelvis: Plan: Mechanical Fall -- tripped and fell off a step to ground and landed on LEFT hip Denies LOC/hitting head On admission, CT head obtained given on eliquis --> NEGATIVE CT cervical spine NEGATIVE Xray with: Acute comminuted displaced fracture of the left superior pubic ramus. Possible acute nondisplaced fracture of the left inferior pubic ramus. CT pelvis pending Orthopedics consult, but likely non-operative Pain control, antiemetics prn Gentle IVF for minimal dehydration on exam, monitor (also with hyponatremia Na 130 but improved from prior last month 127 for c-scope) WBC elevation to 12.9k but suspect 2nd to acute stress/fracture. Denied any fever/chills. Afebrile. No sob/CP or abdominal discomfort. Monitor for now hold eliquis PT/OT to be consulted: requiring rehab CM to follow (2) Hematoma of left hip: Plan: holding eliquis for now given hematoma, monitor on telemetry. SCDs for DVT prophylaxis and remains rate controlled (3) Atrial fibrillation: Plan: Eliquis on hold as above, hgb 11.5 on admission with baseline hgb ~13s Rates in 70-80s, denied CP/SOB. Mag 2.0 and keep >2 given holding eliquis (4) Anemia: Plan: baseline hgb in 13s, recent c-scope unremarkable hgb 11.5 on admission monitor CBC w/ hematoma (5) Hypertension: Plan: BP stable On indapamide 1.25mg, metoprolol succinate 25mg daily --> to resume tomorrow. Could hold AM indapamide in AM if needed but BP stable 132/72 (6) Dyslipidemia: Plan: continue atorvastatin 10mg HS (7) Chronic kidney disease, stage III (moderate): Plan: Baseline cr appears to be 1.5-1.8 BMP pending Renal dose meds/avoid nephrotoxic medications when possible (8) Hypothyroidism: Plan: TSH 3 earlier this year. Does have hyponatremia but improved from prior continue home levothyroxine 50mcg daily (9) Type 2 diabetes mellitus: Plan: A1c 7.1 however not on medications at home BSG AC/HS, SSI while inpatient Monitor Admission and Anticipated Discharge Date Admission Date: September 27, 2021 Subjective Patient reports constipation. Patient reports no other new symptoms. Review of Systems Review of Systems: All systems reviewed & are unremarkable except as noted in HPI & below Physical Exam Physical Exam: General: WD/WN elderly frail male sitting in bed, NAD, general pallor HEENT: head normocephalic, atraumatic, mm sligghtly dry, trachea midline without deviation Resp: CTAB, no accesory muscle use, no w/c/r, on room air CV: irregularly irregular, no m/r/g, no edema, pulses palpable bilaterally GI: +BS, soft, non-tender, no guarding or rigidity : no castrejon MSK/Neuro: moves all extremities, CN intact grossly, answering questions appropriately, no facial droop, pronator drift, L hip tender to palpation along with left lateral THIGH tenderness to palpation, +hematoma, no shortenin g/external rotation noted, strength equal bilaterally, full ROM L shoulder Psych: alert, oriented x3, pleasant and cooperative Skin: small area of ecchymosis to L shoulder, non-tender Results & Data Results & Data ([facility]) Vital Signs (Past 12 Hours) Vital Signs Temp Pulse Pulse Resp BP Pulse Ox 09/27/21 18:39 36.7 C 75 20 112/56 L 95 09/27/21 15:54 36.9 C 67 18 120/62 94 09/27/21 14:20 72 09/27/21 11:18 36.3 C L 69 20 132/63 98 PG Care Time/CCT Total # of Minutes Spent Total Time Spent with Patient: Total time spent is greater than 50% in coordination of care (as documented) at patient's floor/unit and/or counseling patient: Coding Level of Care Code 59108 Subseq Hosp Care Lvl 2 Diagnoses Fracture of left pelvis S32.502A Encounter type: initial encounter Fracture alignment: displaced Fracture type: closed Pelvic bone location: pubis Hematoma of left hip S70.02XA Encounter type: initial encounter Atrial fibrillation I48.91 Anemia D64.9 Hypertension I10 Dyslipidemia E78.5 Chronic kidney disease, stage III (moderate) N18.30 Hypothyroidism E03.9 Type 2 diabetes mellitus E11.9 (1) Fracture of left pelvis Encounter type: initial encounter Fracture alignment: displaced Fracture type: closed Pelvic bone location: pubis Qualified Code(s): S32.502A - Unspecified fracture of left pubis, initial encounter for closed fracture (2) Hematoma of left hip Encounter type: initial encounter Qualified Code(s): S70.02XA - Contusion of left hip, initial encounter
[2021-09-27] MEDS: ATORVASTATIN 10 MG TAB PO SCH (21:36)
[2021-09-28] MEDS: LEVOTHYROXINE SODIUM 50 MCG TABLET PO SCH (05:49)
[2021-09-28] MEDS: SODIUM CHLORIDE 0.9% 1000ML 1,000 ML IV SCH (05:49)
[2021-09-28 07:07] LABS: Hematocrit (blood only) 24.6 % (42-52); Hemoglobin 8.3 g/dL (14.0-18.0); Mean Corpuscular Hemoglobin 32.7 pg (25-34); Mean Corpuscular Hgb Conc 33.7 g/dL (32-36); Mean Corpuscular Volume 96.9 fL (80-100); RDW Coefficient of Variation 14.8 % (11.5-14.5); RDW Standard Deviation 52.2 fL (36.4-46.3); Red Blood Count 2.54 M/uL (4.7-6.1); White Blood Count 7.92 K/uL (4.8-10.8)
[2021-09-28 07:30] LABS: Mean Platelet Volume 9.4 fL (7.4-10.4); Platelet Count 88 K/uL (130-400); Platelet Estimate Decreased (Normal)
[2021-09-28 07:46] LABS: Calcium 8.4 mg/dl (8.5-10.1); Creatinine Clr Calc Pharmacy 42.1 ml/min; Est GFR (African American) 51.5 ml/min; Est GFR (Non-African American) 44.4 ml/min; Potassium 3.8 mmol/L (3.5-5.1)
[2021-09-28] MEDS: INDAPAMIDE 1.25 MG TAB PO SCH (08:01)
[2021-09-28] MEDS: METOPROLOL SUCC 25MG EXT REL TAB PO SCH (08:01)
[2021-09-28] MEDS: CEROVITE ADV FORMULA TAB PO SCH (08:02)
[2021-09-28] MEDS: DOCUSATE SODIUM 100 MG CAP PO SCH ×2 (08:02→20:26)
[2021-09-28] MEDS: INSULIN ASPART PER UNIT SC SCH ×4 (08:02→21:35)
--- NOTE | 2021-09-28 10:33 | Ultrasound Report ---
US extremity non-vascular ltd CLINICAL HISTORY: left thigh hematoma COMPARISON STUDY: Left femur radiograph 09/26/2021. Pelvis CT 09/26/2021. FINDINGS: Real-time sonographic imaging of the left hip/thigh was performed with [employer] admissions representative image s submitted. There is again noted a 6.8 x 5.6 x 3.2 cm subcutaneous complex fluid collection within t he left hip. This likely represents a hematoma. This is similar to the prior study. Small amount of e hailee and thickening within the left groin musculature which may correspond to the previous identified left groin hematoma. IMPRESSION: 1. No significant change in the 6.8 cm complex subcutaneous fluid collection within the left hip like ly representing a hematoma. 2. Small amount of edema and thickening within the left groin musculature which may correspond to the previous identified left groin intramuscular hematoma. ACT 112: Negative or not required by law. Electronically signed by: Mario Cardona M.D. 09/28/2021 10:32 AM
[2021-09-28 15:45] LABS: Hematocrit (blood only) 25.7 % (42-52); Hemoglobin 8.6 g/dL (14.0-18.0)
[2021-09-28] MEDS ORDERED: bisacodyL 5 MG TABEC PO ONE (18:01)
[2021-09-28] MEDS: bisacodyL 5 MG TABEC PO ONE ×2 (18:02→18:13)
[2021-09-28] MEDS: ATORVASTATIN 10 MG TAB PO SCH (20:26)
--- NOTE | 2021-09-28 22:28 | Hospitalist Progress Note ---
Date of Service September 28, 2021 Assessment & Plan (1) Fracture of left pelvis: Plan: Mechanical Fall -- tripped and fell off a step to ground and landed on LEFT hip Denies LOC/hitting head On admission, CT head obtained given on eliquis --> NEGATIVE CT cervical spine NEGATIVE Xray with: Acute comminuted displaced fracture of the left superior pubic ramus. Possible acute nondisplaced fracture of the left inferior pubic ramus. CT pelvis showing hematoma. /S on 09/28 shows no change in hematoma. Hemoglobin has oliver downtrending. -will repeat hemoglobin in AM. If stable, will discharge. Orthopedics consult, but likely non-operative Pain control, antiemetics prn Gentle IVF for minimal dehydration on exam, monitor (also with hyponatremia Na 130 but improved from prior last month 127 for c-scope) WBC elevation to 12.9k but suspect 2nd to acute stress/fracture. Denied any fever/chills. Afebrile. No sob/CP or abdominal discomfort. Monitor for now PT/OT to be consulted CM to follow -- likely need inpatient vs home health/PT (2) Hematoma of left hip: Plan: holding eliquis for now given hematoma, monitor on telemetry. SCDs for DVT prophylaxis and remains rate controlled (3) Atrial fibrillation: Plan: Eliquis on hold as above, hgb 11.5 on admission with baseline hgb ~13s Rates in 70-80s, denied CP/SOB. Mag 2.0 and keep >2 given holding eliquis (4) Anemia: Plan: baseline hgb in 13s, recent c-scope unremarkable hgb 11.5 on admission monitor CBC w/ hematoma (5) Hypertension: Plan: BP stable On indapamide 1.25mg, metoprolol succinate 25mg daily --> to resume tomorrow. Could hold AM indapamide in AM if needed but BP stable 132/72 (6) Dyslipidemia: Plan: continue atorvastatin 10mg HS (7) Chronic kidney disease, stage III (moderate): Plan: Baseline cr appears to be 1.5-1.8 Renal dose meds/avoid nephrotoxic medications when possible (8) Hypothyroidism: Plan: TSH 3 earlier this year. Does have hyponatremia but improved from prior continue home levothyroxine 50mcg daily (9) Type 2 diabetes mellitus: Plan: A1c 7.1 however not on medications at home BSG AC/HS, SSI while inpatient Monitor Admission and Anticipated Discharge Date Admission Date: September 27, 2021 Subjective Patient reports no new symptoms today. Review of Systems Review of Systems: All systems reviewed & are unremarkable except as noted in HPI & below Physical Exam Physical Exam: General: WD/WN elderly frail male sitting in bed, NAD, general pallor HEENT: head normocephalic, atraumatic, mm sligghtly dry, trachea midline without deviation Resp: CTAB, no accesory muscle use, no w/c/r, on room air CV: irregularly irregular, no m/r/g, no edema, pulses palpable bilaterally GI: +BS, soft, non-tender, no guarding or rigidity : no castrejon MSK/Neuro: moves all extremities, CN intact grossly, answering questions appropriately, no facial droop, pronator drift, L hip tender to palpation along with left lateral THIGH tenderness to palpation, +hematoma, no shortening/external rotation noted, strength equal bilaterally, full ROM L shoulder Psych: alert, oriented x3, pleasant and cooperative Skin: small area of ecchymosis to L shoulder, non-tender Results & Data Results & Data ([facility]) Vital Signs (Past 12 Hours) Vital Signs Temp Pulse Pulse Resp BP BP Pulse Ox 09/28/21 15:00 36.5 C 82 77 20 97/56 L 98 09/28/21 11:00 36.5 C 80 20 129/71 98 PG Care Time/CCT Total # of Minutes Spent Total Time Spent with Patient: Total time spent is greater than 50% in coordination of care (as documented) at patient's floor/unit and/or counseling patient: Coding Level of Care Code 50547 Subseq Hosp Care Lvl 2 Diagnoses Fracture of left pelvis S32.502A Encounter type: initial encounter Fracture alignment: displaced Fracture type: closed Pelvic bone location: pubis Hematoma of left hip S70.02XA Encounter type: initial encounter Atrial fibrillation I48.91 Anemia D64.9 Hypertension I10 Dyslipidemia E78.5 Chronic kidney disease, stage III (moderate) N18.30 Hypothyroidism E03.9 Type 2 diabetes mellitus E11.9 (1) Fracture of left pelvis Encounter type: initial encounter Fracture alignment: displaced Fracture type: closed Pelvic bone location: pubis Qualified Code(s): S32.502A - Unspecified fracture of left pubis, initial encounter for closed fracture (2) Hematoma of left hip Encounter type: initial encounter Qualified Code(s): S70.02XA - Contusion of left hip, initial encounter
[2021-09-29] MEDS: LEVOTHYROXINE SODIUM 50 MCG TABLET PO SCH (06:05)
[2021-09-29] MEDS: INSULIN ASPART PER UNIT SC SCH ×4 (08:18→21:10)
[2021-09-29] MEDS: DOCUSATE SODIUM 100 MG CAP PO SCH ×2 (08:19→21:09)
[2021-09-29] MEDS: CEROVITE ADV FORMULA TAB PO SCH (08:20)
[2021-09-29] MEDS: METOPROLOL SUCC 25MG EXT REL TAB PO SCH (08:25)
[2021-09-29] MEDS: INDAPAMIDE 1.25 MG TAB PO SCH (08:25)
[2021-09-29 09:40] LABS: Hematocrit (blood only) 24.7 % (42-52); Hemoglobin 8.4 g/dL (14.0-18.0); Mean Corpuscular Hemoglobin 33.2 pg (25-34); Mean Corpuscular Volume 97.6 fL (80-100); Mean Platelet Volume 10.5 fL (7.4-10.4); Platelet Count 117 K/uL (130-400); RDW Standard Deviation 53.3 fL (36.4-46.3); Red Blood Count 2.53 M/uL (4.7-6.1); White Blood Count 8.46 K/uL (4.8-10.8)
[2021-09-29 09:41] LABS: Calcium 8.9 mg/dl (8.5-10.1); Creatinine Clr Calc Pharmacy 39.2 ml/min; Est GFR (Non-African American) 40.6 ml/min; Potassium 3.8 mmol/L (3.5-5.1)
--- NOTE | 2021-09-29 19:34 | Hospitalist Progress Note ---
Date of Service September 29, 2021 Assessment & Plan (1) Fracture of left pelvis: Plan: Mechanical Fall -- tripped and fell off a step to ground and landed on LEFT hip Denies LOC/hitting head On admission, CT head obtained given on eliquis --> NEGATIVE CT cervical spine NEGATIVE Xray with: Acute comminuted displaced fracture of the left superior pubic ramus. Possible acute nondisplaced fracture of the left inferior pubic ramus. CT pelvis showing hematoma. U/S on 09/28 shows no change in hematoma. Hemoglobin downtreded to mid 8, stable for past 24 hours. -Patient will be discharged. Orthopedics consult: may need hematoma aspirated. -ELIQUIS is on hold. Pain control, antiemetics prn PT/OT: patient will need rehab. (2) Hematoma of left hip: Plan: holding eliquis for now given hematoma, monitor on telemetry. SCDs for DVT prophylaxis and remains rate controlled (3) Atrial fibrillation: Plan: Eliquis on hold as above, hgb 11.5 on admission with baseline hgb ~13s Rates in 70-80s, denied CP/SOB. Mag 2.0 and keep >2 given holding eliquis (4) Anemia: Plan: baseline hgb in 13s, recent c-scope unremarkable hgb 11.5 on admission down to 8.4 monitor CBC w/ hematoma (5) Hypertension: Plan: BP stable On indapamide 1.25mg, metoprolol succinate 25mg daily --> to resume tomorrow. Could hold AM indapamide in AM if needed but BP stable 132/72 (6) Dyslipidemia: Plan: continue atorvastatin 10mg HS (7) Chronic kidney disease, stage III (moderate): Plan: Baseline cr appears to be 1.5-1.8 Renal dose meds/avoid nephrotoxic medications when possible (8) Hypothyroidism: Plan: TSH 3 earlier this year. Does have hyponatremia but improved from prior continue home levothyroxine 50mcg daily (9) Type 2 diabetes mellitus: Plan: A1c 7.1 however not on medications at home BSG AC/HS, SSI while inpatient Monitor Admission and Anticipated Discharge Date Admission Date: September 27, 2021 Subjective Patient reports no new symptoms. Patient is asking that his milk of magneisa be changed for around lunch time. Review of Systems Review of Systems: All systems reviewed & are unremarkable except as noted in HPI & below Physical Exam Physical Exam: General: WD/WN elderly frail male sitting in bed, NAD, general pallor HEENT: head normocephalic, atraumatic, mm sligghtly dry, trachea midline without deviation Resp: CTAB, no accesory muscle use, no w/c/r, on room air CV: irregularly irregular, no m/r/g, no edema, pulses palpable bilaterally GI: +BS, soft, non-tender, no guarding or rigidity : no castrejon MSK/Neuro: moves all extremities, CN intact grossly, answering questions appropriately, no facial droop, pronator drift, L hip tender to palpation along with left lateral THIGH tenderness to palpation, +hematoma, no shortening/external rotation noted, strength equal bilaterally, full ROM L shoulder Psych: alert, oriented x3, pleasant and cooperative Skin: small area of ecchymosis to L shoulder, non-tender Results & Data Results & Data ([facility]) Vital Signs (Past 12 Hours) Vital Signs Temp Pulse Pulse Resp BP BP Pulse Ox 09/29/21 18:28 36.7 C 84 18 116/65 93 09/29/21 15:00 36.6 C 80 20 110/50 L 99 09/29/21 14:19 84 09/29/21 10:55 36.4 C L 81 20 115/67 99 09/29/21 08:25 88 122/61 PG Care Time/CCT Total # of Minutes Spent Total Time Spent with Patient: Total time spent is greater than 50% in coordination of care (as documented) at patient's floor/unit and/or counseling patient: Coding Level of Care Code 50710 Subseq Hosp Care Lvl 2 Diagnoses Fracture of left pelvis S32.502A Encounter type: initial encounter Fracture alignment: displaced Fracture type: closed Pelvic bone location: pubis Hematoma of left hip S70.02XA Encounter type: initial encounter Atrial fibrillation I48.91 Anemia D64.9 Hypertension I10 Dyslipidemia E78.5 Chronic kidney disease, stage III (moderate) N18.30 Hypothyroidism E03.9 Type 2 diabetes mellitus E11.9 (1) Fracture of left pelvis Encounter type: initial encounter Fracture alignment: displaced Fracture type: closed Pelvic bone location: pubis Qualified Code(s): S32.502A - Unspecified fracture of left pubis, initial encounter for closed fracture (2) Hematoma of left hip Encounter type: initial encounter Qualified Code(s): S70.02XA - Contusion of left hip, initial encounter
[2021-09-29] MEDS: ATORVASTATIN 10 MG TAB PO SCH (21:09)
[2021-09-30] MEDS: LEVOTHYROXINE SODIUM 50 MCG TABLET PO SCH (06:09)
--- NOTE | 2021-09-30 06:10 | Hospitalist Progress Note ---
Date of Service September 29, 2021 Assessment & Plan (1) Fracture of left pelvis: Plan: Acute Blood loss Anemia Mechanical Fall -- tripped and fell off a step to ground and landed on LEFT hip Denies LOC/hitting head On admission, CT head obtained given on eliquis --> NEGATIVE CT cervical spine NEGATIVE Xray with: Acute comminuted displaced fracture of the left superior pubic ramus. Possible acute nondisplaced fracture of the left inferior pubic ramus. CT pelvis showing hematoma. U/S on 09/28 shows no change in hematoma. Hemoglobin downtreded to mid 8, stable for past 24 hours. -Patient will be discharged. Orthopedics consult: may need hematoma aspirated. -ELIQUIS is on hold. Pain control, antiemetics prn PT/OT: patient will need rehab. (2) Hematoma of left hip: Plan: holding eliquis for now given hematoma, monitor on telemetry. SCDs for DVT prophylaxis and remains rate controlled (3) Atrial fibrillation: Plan: Eliquis on hold as above, hgb 11.5 on admission with baseline hgb ~13s Rates in 70-80s, denied CP/SOB. Mag 2.0 and keep >2 given holding eliquis (4) Anemia: Plan: baseline hgb in 13s, recent c-scope unremarkable hgb 11.5 on admission down to 8.4 monitor CBC w/ hematoma (5) Hypertension: Plan: BP stable On indapamide 1.25mg, metoprolol succinate 25mg daily --> to resume tomorrow. Could hold AM indapamide in AM if needed but BP stable 132/72 (6) Dyslipidemia: Plan: continue atorvastatin 10mg HS (7) Chronic kidney disease, stage III (moderate): Plan: Baseline cr appears to be 1.5-1.8 Renal dose meds/avoid nephrotoxic medications when possible (8) Hypothyroidism: Plan: TSH 3 earlier this year. Does have hyponatremia but improved from prior continue home levothyroxine 50mcg daily (9) Type 2 diabetes mellitus: Plan: A1c 7.1 however not on medications at home BSG AC/HS, SSI while inpatient Monitor Admission and Anticipated Discharge Date Admission Date: September 27, 2021 Subjective Patient reports no new symptoms. Patient is asking that his milk of magneisa be changed for around lunch time. Review of Systems Review of Systems: All systems reviewed & are unremarkable except as noted in HPI & below Physical Exam Physical Exam: General: WD/WN elderly frail male sitting in bed, NAD, general pallor HEENT: head normocephalic, atraumatic, mm sligghtly dry, trachea midline without deviation Resp: CTAB, no accesory muscle use, no w/c/r, on room air CV: irregularly irregular, no m/r/g, no edema, pulses palpable bilaterally GI: +BS, soft, non-tender, no guarding or rigidity : no castrejon MSK/Neuro: moves all extremities, CN intact grossly, answering questions appropriately, no facial droop, pronator drift, L hip tender to palpation along with left lateral THIGH tenderness to palpation, +hematoma, no shortening/external rotation noted, strength equal bilaterally, full ROM L shoulder Psych: alert, oriented x3, pleasant and cooperative Skin: small area of ecchymosis to L shoulder, non-tender Results & Data Results & Data ([facility]) Vital Signs (Past 12 Hours) Vital Signs Temp Pulse Pulse Resp BP BP Pulse Ox 09/30/21 03:47 79 09/30/21 02:08 36.7 C 18 113/56 L 98 09/29/21 22:50 36.8 C 78 18 118/56 L 97 09/29/21 18:28 36.7 C 84 18 116/65 93 PG Care Time/CCT Total # of Minutes Spent Total Time Spent with Patient: Total time spent is greater than 50% in coordination of care (as documented) at patient's floor/unit and/or counseling patient: Coding Level of Care Code 25902 Subseq Hosp Care Lvl 2 Diagnoses Fracture of left pelvis S32.502A Encounter type: initial encounter Fracture alignment: displaced Fracture type: closed Pelvic bone location: pubis Hematoma of left hip S70.02XA Encounter type: initial encounter Atrial fibrillation I48.91 Anemia D64.9 Hypertension I10 Dyslipidemia E78.5 Chronic kidney disease, stage III (moderate) N18.30 Hypothyroidism E03.9 Type 2 diabetes mellitus E11.9 (1) Fracture of left pelvis Encounter type: initial encounter Fracture alignment: displaced Fracture type: closed Pelvic bone location: pubis Qualified Code(s): S32.502A - Unspecified fracture of left pubis, initial encounter for closed fracture (2) Hematoma of left hip Encounter type: initial encounter Qualified Code(s): S70.02XA - Contusion of left hip, initial encounter
[2021-09-30 06:57] LABS: Hematocrit (blood only) 21.5 % (42-52); Hemoglobin 7.2 g/dL (14.0-18.0); Mean Corpuscular Hemoglobin 32.4 pg (25-34); Mean Corpuscular Hgb Conc 33.5 g/dL (32-36); Mean Corpuscular Volume 96.8 fL (80-100); Mean Platelet Volume 9.8 fL (7.4-10.4); Platelet Count 108 K/uL (130-400); RDW Standard Deviation 52.4 fL (36.4-46.3); Red Blood Count 2.22 M/uL (4.7-6.1); White Blood Count 7.03 K/uL (4.8-10.8)
[2021-09-30 07:23] LABS: Calcium 8.7 mg/dl (8.5-10.1); Creatinine Clr Calc Pharmacy 35.6 ml/min; Est GFR (African American) 43.9 ml/min; Est GFR (Non-African American) 37.9 ml/min; Potassium 3.8 mmol/L (3.5-5.1)
[2021-09-30] MEDS: METOPROLOL SUCC 25MG EXT REL TAB PO SCH (08:16)
[2021-09-30] MEDS: INSULIN ASPART PER UNIT SC SCH ×4 (08:16→20:22)
[2021-09-30] MEDS: DOCUSATE SODIUM 100 MG CAP PO SCH ×2 (08:16→20:23)
[2021-09-30] MEDS: INDAPAMIDE 1.25 MG TAB PO SCH (08:16)
[2021-09-30] MEDS: CEROVITE ADV FORMULA TAB PO SCH (08:16)
[2021-09-30] MEDS ORDERED: MAGNESIUM HYDROXIDE SUSP 30 ML UDC PO PRN (12:00)
--- NOTE | 2021-09-30 14:56 | Hospitalist Progress Note ---
Date of Service September 30, 2021 Assessment & Plan (1) Fracture of left pelvis: Plan: Acute Blood loss Anemia Mechanical Fall -- tripped and fell off a step to ground and landed on LEFT hip Denies LOC/hitting head On admission, CT head obtained given on eliquis --> NEGATIVE CT cervical spine NEGATIVE Xray with: Acute comminuted displaced fracture of the left superior pubic ramus. Possible acute nondisplaced fracture of the left inferior pubic ramus. CT pelvis showing hematoma. U/S on 09/28 shows no change in hematoma. Hemoglobin downtrended to 7.2 today, will transfuse if <7. Repeat this afternoon as planning on discharge to [facility] tomorrow Orthopedics consult: may need hematoma aspirated. -ELIQUIS remains on hold while Hgb still downtrending. Suspect can resume in 1 week. Pain control, antiemetics prn PT/OT: planning on discharge to [facility] tomorrow. (2) Acute blood loss anemia: (3) Hematoma of left hip: Plan: holding eliquis for now given hematoma, monitor on telemetry. SCDs for DVT prophylaxis and remains rate controlled (4) Atrial fibrillation: Plan: Eliquis on hold as above, hgb 11.5 on admission with baseline hgb ~13s Rates in 70-80s, denied CP/SOB. (5) Anemia: Plan: baseline hgb in 13s, recent c-scope unremarkable hgb 11.5 on admission down to 8.4 monitor CBC w/ hematoma (6) Hypertension: Plan: BP stable On indapamide 1.25mg, metoprolol succinate 25mg daily (7) Dyslipidemia: Plan: continue atorvastatin 10mg HS (8) Chronic kidney disease, stage III (moderate): Plan: Baseline cr appears to be 1.5-1.8 Renal dose meds/avoid nephrotoxic medications when possible (9) Hypothyroidism: Plan: TSH 3.037 [07/15/2021]. continue home levothyroxine 50mcg daily (10) Type 2 diabetes mellitus: Plan: A1c 7.1 however not on medications at home BSG AC/HS, SSI while inpatient - only required 3 units yesterday. Will consider metformin as outpatient if he has never taken this. Admission and Anticipated Discharge Date Admission Date: September 27, 2021 Subjective Hemoglobin dropped to 7.2 this morning. He denies any chest pain, shortness of breath, dizziness or excessive fatigue. He does report his sleeping has not been the best due to helicopter activity outside and therefore feels more tired today. We discussed benefits and risks blood transfusion however he wishes to recheck his hemoglobin later today to see whether he really requires this since his hemoglobin remains above 7 and is now on a clear downward trend except for today and he feels his hematoma is improving daily. Updated his son over the phone. Review of Systems Review of Systems: All systems reviewed & are unremarkable except as noted in Subjective Physical Exam Constitutional: WD/WN, vitals as above Respiratory: normal respiratory effort, lungs clear to auscultation Cardiovascular: RRR, no murmur, no edema Gastrointestinal (Abdomen): normal bowel sounds, soft, nontender, no hepatosplenomegaly Musculoskeletal: Large lateral/posterior dark red hematoma on left thigh without fluctuance Psychiatric: A+Ox3, euthymic affect Results & Data Results & Data ([facility]) Vital Signs (Past 12 Hours) Vital Signs Temp Pulse Pulse Resp BP Pulse Ox 09/30/21 11:00 36.7 C 77 18 111/57 L 94 09/30/21 07:00 36.3 C L 81 18 119/61 96 09/30/21 03:47 79 PG Care Time/CCT Total # of Minutes Spent Total Time Spent with Patient: Total time spent is greater than 50% in coordination of care (as documented) at patient's floor/unit and/or counseling patient: Coding Level of Care Code 98375 Subseq Hosp Care Lvl 2 Diagnoses Fracture of left pelvis S32.502A Encounter type: initial encounter Fracture alignment: displaced Fracture type: closed Pelvic bone location: pubis Hematoma of left hip S70.02XA Encounter type: initial encounter Atrial fibrillation I48.91 Anemia D64.9 Hypertension I10 Dyslipidemia E78.5 Chronic kidney disease, stage III (moderate) N18.30 Hypothyroidism E03.9 Type 2 diabetes mellitus E11.9 Acute blood loss anemia D62 (1) Fracture of left pelvis Encounter type: initial encounter Fracture alignment: displaced Fracture type: closed Pelvic bone location: pubis Qualified Code(s): S32.502A - Unspecified fracture of left pubis, initial encounter for closed fracture (2) Hematoma of left hip Encounter type: initial encounter Qualified Code(s): S70.02XA - Contusion of left hip, initial encounter
[2021-09-30 16:54] LABS: Hematocrit (blood only) 22.8 % (42-52); Hemoglobin 7.9 g/dL (14.0-18.0); Mean Corpuscular Hemoglobin 33.1 pg (25-34); Mean Corpuscular Hgb Conc 34.6 g/dL (32-36); Mean Corpuscular Volume 95.4 fL (80-100); Mean Platelet Volume 9.2 fL (7.4-10.4); Platelet Count 122 K/uL (130-400); RDW Coefficient of Variation 15.1 % (11.5-14.5); RDW Standard Deviation 52.6 fL (36.4-46.3); Red Blood Count 2.39 M/uL (4.7-6.1); White Blood Count 9.44 K/uL (4.8-10.8)
[2021-09-30] MEDS: ATORVASTATIN 10 MG TAB PO SCH (20:23)
[2021-10-01] MEDS: LEVOTHYROXINE SODIUM 50 MCG TABLET PO SCH (05:51)
[2021-10-01 06:51] LABS: Hematocrit (blood only) 22.4 % (42-52); Hemoglobin 7.5 g/dL (14.0-18.0); Mean Corpuscular Hemoglobin 32.1 pg (25-34); Mean Corpuscular Hgb Conc 33.5 g/dL (32-36); Mean Corpuscular Volume 95.7 fL (80-100); Mean Platelet Volume 9.8 fL (7.4-10.4); Platelet Count 136 K/uL (130-400); RDW Coefficient of Variation 15.2 % (11.5-14.5); RDW Standard Deviation 52.3 fL (36.4-46.3); Red Blood Count 2.34 M/uL (4.7-6.1); White Blood Count 6.47 K/uL (4.8-10.8)
[2021-10-01] MEDS: DOCUSATE SODIUM 100 MG CAP PO SCH (08:19)
[2021-10-01] MEDS: CEROVITE ADV FORMULA TAB PO SCH (08:20)
[2021-10-01] MEDS: METOPROLOL SUCC 25MG EXT REL TAB PO SCH (08:20)
[2021-10-01] MEDS: INSULIN ASPART PER UNIT SC SCH ×2 (08:23→12:39)
[2021-10-01 09:38] LABS: Ferritin 110.9 ng/ml (8-388)
[2021-10-01 09:41] LABS: Calcium 8.9 mg/dl (8.5-10.1); Creatinine Clr Calc Pharmacy 37.3 ml/min; Est GFR (African American) 44.2 ml/min; Est GFR (Non-African American) 38.2 ml/min; Potassium 4.1 mmol/L (3.5-5.1)
--- NOTE | 2021-10-01 11:14 | Discharge Summary ---
Date of Service October 01, 2021 Admission HPI Per Admitting Provider 86 yo male with PMHx aflutter (on Eliquis), DM II, HTN, HLD, Leukemia (in remission), breast ca, OA, gout, CKD III, constipation presented after mechanical fall, falling on his LEFT hip. Initially planned for discharge from ER, but possible some benefit from PT/OT evaluations as no family in the area and son lives in [place]. Had been walking down steps and lost his footing on the right, resulting in a fall to onto his left hip. Denies hitting his head or loss of consciousness. Has some bruising to his L shoulder but states that is old. Imaging revealed a pubic rami fracture, likely non-operative. He states no pain at rest, only with movement. Has ice pack currently in place. Prior hip replacements done at [facility]. Did rehab and then went to [facility] following for rehab. Agreeable to monitor overnight/PT/OT evaluations and possible rehab vs home therapy pending how he does. Typically very active and lives alone. Not wanting to stay overnight initially but agreeable given finding and lives alone. Just got back from CT head/pelvis/cervical spine. No fever/chills, chest pain, shortness of breath, palpitations, abdominal pain, nausea, vomiting or dysuria at this time. Hx afib but rate well controlled. Principal Diagnosis Pelvic Fracture Acute blood loss anemia Left lateral thigh hematoma Discharge Exam Constitutional WD/WN, vitals as above Respiratory normal respiratory effort, lungs clear to auscultation Cardiovascular RRR, no murmur, no edema Gastrointestinal (Abdomen) normal bowel sounds, soft, nontender, no hepatosplenomegaly Psychiatric A+Ox3, euthymic affect Discharge Data Allergies Allergy/AdvReac Type Severity Reaction Status Date / Time Sulfa (Sulfonamide Allergy Intermediate HIVES Verified 09/26/21 13:49 Antibiotics) Consultations 09/26/21 15:22 ED Decision to Admit Stat 09/26/21 17:33 Consult Orthopedic Surgery Routine Ordered Studies 09/26/21 14:55 CT cervical spine wo con Stat IMPRESSION: No acute cervical spine fracture or subluxation. Severe multilevel degenerative changes within the cervical spine. CT head/brain wo con Stat IMPRESSION: 1. No acute intracranial findings. 2. No acute calvarial fracture. CT pelvis wo con Stat IMPRESSION: 1. Acute moderately displaced comminuted fracture of the left superior pubic ramus. Acute mildly displaced fracture of the left inferior pubic ramus. Moderate adjacent intramuscular hemorrhage. Small to moderate amount of hemorrhage within the space of Retzius. 2. Intact total bilateral hip arthroplasties. No periprosthetic fracture. 3. Minimally displaced fracture of the left sacral ala, probably acute. 4. 6 x 5.2 cm subcutaneous lateral left thigh subcutaneous contusion/hematoma. 09/28/21 08:54 US extremity non-vascular ltd Routine IMPRESSION: 1. No significant change in the 6.8 cm complex subcutaneous fluid collection within the left hip likely representing a hematoma. 2. Small amount of edema and thickening within the left groin musculature which may correspond to the previous identified left groin intramuscular hematoma. Hospital Course (1) Fracture of left pelvis: Maxwell Encinas is an 86 year old male admitted to [facility] from September 26-2021 due to a fall. He was diagnosed with acute moderately displaced comminuted fracture of your left pelvis adjacent intramuscular hemorrhage and left thigh hematoma. Eliquis has been placed on hold due to the hematoma but can likely be resumed if hemoglobin stable in 3-4 days. Hemoglobin 7.5 on discharge with normal iron transferrin saturations. He did not require a blood transfusion. He was started on ferrous sulphate every other day as prescribed below but can likely be stopped if having constipation. Indapamide has been discontinued due to low normal blood pressure likely as a result from bleeding into the hematoma. This can likely be restarted in the coming weeks as his blood pressure improves. (2) Acute blood loss anemia: (3) Hematoma of left hip: (4) Atrial fibrillation: (5) Anemia: (6) Hypertension: (7) Dyslipidemia: (8) Chronic kidney disease, stage III (moderate): (9) Hypothyroidism: (10) Type 2 diabetes mellitus: Total Time Total Time Spent Total Time Spent (In Minutes): 40 Discharge Plan Discharge Items Patient Disposition: Transfer Long Term Fac Reason For Visit: L HIP PAIN S/P FALL, PUBIC RAMI FX Discharge Diagnosis: Stable Pelvic Fracture Activity: Resume your previous activity Weightbearing: Full weightbearing Non-emergency contact: Primary Care Provider Call non-emergency contact if: you have any medication questions and your symptoms worsen Follow-up/Referrals: Raffi Alva MD [Primary Care Provider] - Alex Perez MD [Physician] - (Orthopedic follow-up in 4 weeks) Diet: Carb Consistent or DM2 and Heart Healthy Addtl Attending Provider Instructions: You were admitted to [facility] from September 26-2021 due to a fall. You were diagnosed with acute moderately displaced comminuted fracture of your left pelvis adjacent intramuscular hemorrhage and left thigh hematoma. Eliquis has been placed on hold due to the hematoma but can likely be resumed if hemoglobin stable in 3-4 days. Hemoglobin 7.5 on discharge with normal iron saturations. Recommend taking ferrous sulphate every other day as prescribed below but can likely be stopped if having constipation. Indapamide has been discontinued due to low normal blood pressure likely as a result from bleeding into the hematoma. This can likely be restarted in the coming weeks as your blood pressure improves. Pending Studies at Discharge: No Stand-Alone Forms: My [facility] Skilled Items Patient informed of condition?: Yes DNR: No Discharge Level of Care: Acute rehab Communicable Disease: No Discharge Prognosis: Stable Lines: None Urinary Catheter: No Medications and DC Order Prescriptions: New acetaminophen 325 mg Tablet 650 mg PO Q4H PRN (Reason: fever or pain) Qty: 60 RF: 0 ferrous sulfate 325 mg (65 mg iron) tablet 325 mg PO Q OTHER DAY Qty: 14 RF: 0 Continued Ocuvite Lutein and Zeaxanthin 60 mg-13.5 mg- 15 mg-2 mg-6 mg capsule 1 cap PO QAM RF: 0 atorvastatin 20 mg tablet 10 mg PO HS RF: 0 metoprolol succinate 25 mg tablet extended release 24 hr 25 mg PO QAM RF: 0 simethicone 80 mg tablet,chewable 80 mg PO QID PRN (Reason: gas pain) Qty: 20 RF: 0 levothyroxine [Euthyrox] 50 mcg tablet 50 mcg PO QAM RF: 0 Discontinued Eliquis 2.5 mg tablet 2.5 mg PO BID Qty: 180 RF: 3 indapamide 1.25 mg tablet 1.25 mg PO QAM RF: 0 levothyroxine 50 mcg capsule 50 mcg PO DAILYBB RF: 0 Discharge Orders: Discharge Order (Routine); Ordered 10/01/21 Ordered By: Quinton Mclean/Other Patient Handouts: Managing Type 2 Diabetes Admission Data Admit Date/Time: 09/27/21 14:42 Attending Provider: Quinton Quigley Admit Provider: Jamal Crooks Primary Care Provider: Raffi Alva V. Other Providers: Jamal Crooks ; Alex Perez ; Rafael Winn at [place] Other Interventions: Discharge Summary Assessment (RN) Last Done: 10/01/21 11:07 Coding Level of Care Code D/C DAY MANAGEMENT >30 MINS Diagnoses Fracture of left pelvis S32.502A Encounter type: initial encounter Fracture alignment: displaced Fracture type: closed Pelvic bone location: pubis Acute blood loss anemia D62 Hematoma of left hip S70.02XA Encounter type: initial encounter Atrial fibrillation I48.91 Anemia D64.9 Hypertension I10 Dyslipidemia E78.5 Chronic kidney disease, stage III (moderate) N18.30 Hypothyroidism E03.9 Type 2 diabetes mellitus E11.9
== END 2021-10-01 13:50 | DRG 536 ==
LOC: 2N 13:08 → ED 13:08 → 2N 17:11 → SUATTDRO 09-27 14:42

== ENCOUNTER 2023-08-03 06:33 | Observation (INO) ==
--- NOTE | 2023-07-28 10:36 | Anesthesiology Consultation ---
Date of Service July 28, 2023 Assessment & Plan (1) Encounter for pre-operative examination: Chart Review Chart Review: Acceptable Risk for Surgery and Patient NOT seen in Pre Admission Testing Patient had potassium of 5.2 on preop labs. Normally runs high 4's. Will leave to discretion of attending anesthesia provider whether repeat K is warranted DOS. Consults Requested none History Surgery Operation Date: 08/03/23 07:30 Proposed Procedures p Cardioversion Psych Tech w/Anesthesia - Yordan Monae MD Height/Weight Height: 6 ft Weight: 80.739 kg Allergies Allergy/AdvReac Type Severity Reaction Status Date / Time Sulfa (Sulfonamide Allergy Intermediate HIVES Verified 07/28/23 08:40 Antibiotics) Medications Home Medications Medication Instructions Recorded Confirmed Last Taken vit C,D-Bd-bjspcz-lutein-zeaxan 60 1 cap PO QAM 01/03/19 07/28/23 09/26/21 mg-13.5 mg-15 mg-2 mg-6 mg capsule (Ocuvite Lutein and Zeaxanthin) psyllium husk 3.4 gram/5.4 gram 1 tsp PO DAILY 10/22/21 07/28/23 Unknown oral powder (Metamucil) levothyroxine 50 mcg tablet 50 mcg PO QAM #90 tabs 11/09/22 07/28/23 Unknown (Euthyrox) apixaban 2.5 mg tablet (Eliquis) 2.5 mg PO BID #180 tabs 12/12/22 07/28/23 Unknown mecobalamin (vitamin B12) 5,000 2,500 mcg (1/2 x 5,000 mcg) PO Q 03/29/23 07/28/23 Unknown mcg disintegrating tablet OTHER DAY #1 tab atorvastatin 20 mg tablet 10 mg PO QAM 07/13/23 07/28/23 Unknown metoprolol succinate 50 mg 75 mg PO QAM 07/13/23 07/28/23 Unknown tablet,extended release 24 hr clonazepam 0.5 mg tablet 0.5 mg PO .QHS PRN insomnia #30 07/26/23 07/28/23 Unknown tabs ropinirole 0.25 mg tablet 0.25 mg PO DAILY #60 tabs 07/26/23 07/28/23 Unknown flecainide 50 mg tablet 50 mg PO Q12H #60 tabs 07/27/23 07/28/23 Unknown doxepin 10 mg capsule 10 mg PO HS PRN insomnia 07/28/23 07/28/23 Unknown Past Medical History Medical History History of cardioversion 07/18/23, [facility] Anticoagulant long-term use eliquis Hypothyroidism History of anesthesia reaction reports constipation, sleep disturbances and vission changes x 1 year following removal of loose body LLE 2000 History of gout Pancreatic cyst Constipation IBS (irritable bowel syndrome) DM type 2 (diabetes mellitus, type 2) diet controlled, no meds HLD (hyperlipidemia) Atrial flutter hx of Hypertension Chronic kidney disease, stage III (moderate) follows with Dr. 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 Monae--on BB and eliquis Benign essential hypertension cardioversion 07/18/23: 30mg propofol. Past Family History Family History Other No family history of adverse response to anesthesia Denies family history of Ovarian cancer Prostate cancer Breast cancer Lung cancer Colorectal cancer Past Surgical History Surgical History History of lymph node excision 01/2023 off right chest H/O left mastectomy History of surgery removal loose body x 2 LLE History of cataract surgery History of left hip replacement History of right hip replacement History of right mastectomy History of colonoscopy Social History Smoking Status: Never smoker Do You Dip or Chew Tobacco: No Hx Alcohol Use: Yes (very rare) Alcohol type: beer alcohol intake frequency: holidays/special occasions only Hx Substance Use: No substance use type: does not use Testing Laboratory Results Laboratory Tests 07/27/23 11:10 Sodium 137 Potassium 5.2 H Chloride 103 Carbon Dioxide 27 BUN 33 H Creatinine 1.71 H Glucose 175 H Electrocardiogram Date: 07/18/23 DICTATED BY: Cal Durán MD Test Reason : Blood Pressure : / mmHG Vent. Rate : 065 BPM Atrial Rate : 065 BPM P-R Int : 260 ms QRS Dur : 102 ms QT Int : 414 ms P-R-T Axes : 070 -03 085 degrees QTc Int : 430 ms Sinus rhythm with 1st degree A-V block Nonspecific ST and T wave abnormality Abnormal ECG When compared with ECG of 10-AUG-2018 06:29, CA interval has increased Questionable change in QRS axis Non-specific change in ST segment in Lateral leads Nonspecific T wave abnormality now evident in Lateral leads Confirmed by Cal Durán ([id number]) on 07/18/2023 10:40:51 AM
--- NOTE | 2023-08-03 08:25 | Cardiology Progress Note ---
Date of Service August 03, 2023 Assessment & Plan (1) Atrial fibrillation: (2) Anticoagulant long-term use: (3) Chronic kidney disease, stage III (moderate): (4) Hypertension: (5) Unstable angina: Plan 1. Atrial fibrillation: He has spontaneously converted to sinus rhythm, this is an excellent result as far as his rhythm goes. 2. Anticoagulation: He is on Eliquis and has been, he took his last dose last evening. He is on the correct dose based on his age and kidney function which would favor the lower dose. 3. Chronic kidney disease: He does have chronic kidney disease and his creatinine has been relatively stable. I am repeating that measurement today. 4. Hypertension: He does have hypertension but his blood pressure is well- controlled today. 5. Unstable angina: His symptoms are very compatible with unstable angina. This is recent onset and quite severe. I am going to check a troponin but I think he should have a cardiac catheterization, we could consider stress testing but his symptoms are severe enough I think that is some risk. I have asked Dr. Cheek to evaluate him for catheterization today since he has been n.p.o. Subjective This is an 88-year-old male with a history of diabetes mellitus, hyperlipidemia, chronic kidney disease, hypothyroidism on supplementation, CLL in remission, breast cancer, osteoarthritis and atrial fibrillation. He was initially evaluated for atrial fibrillation in July 2018 when he had continued feelings of a rapid pulse and some type of chest symptoms and a markedly decreased exercise tolerance and came to the emergency room where he was found to be in atrial fibrillation with a rapid ventricular response. He was given diltiazem but became hypotensive therefore he was started on amiodarone intravenously and converted spontaneously to sinus rhythm. Amiodarone was discontinued and since that was his first known presentation (although he may have had prior symptoms of a rapid heart rate at times) he was not discharged on antiarrhythmic therapy. He was maintained on metoprolol and anticoagulation however. To my knowledge he did not have documented recurrence until having an office visit March 28, 2023 where an irregular heart rate was noted, he had an electrocardiogram on March 29, 2023 which showed atrial fibrillation with a heart rate of 98 bpm. His metoprolol succinate was increased from 25 to 50 mg daily and he is felt well with that change. Subsequently with continued somewhat high heart rates his metoprolol was increased to 75 mg daily around July 13, 2023. He was really not aware of the atrial fibrillation although he did note some dyspnea on exertion, since we really did not know the date of onset of the arrhythmia it was hard to correlate his symptoms. We did however arrange cardioversion which was performed on July 18, 2023 and he left the hospital in sinus rhythm. After going home it seems that he felt better. He seemed to have less shortness of breath with exertion, including climbing steps, and he does check his pulse from time to time and noted to be regular for 4 to 5 days. It seems that gradually after for 5 days post cardioversion his symptoms of dyspnea on exertion recurred and were somewhat bothersome to him. He arrived in the office July 27, 2023 in atrial fibrillation but when that occurred was not clear. After some discussion we decided to try to maintain sinus rhythm by using flecainide and it was initiated at 50 mg twice a day and he was scheduled for cardioversion today. For the past week or so he has had exertional symptoms which are very reminiscent of unstable angina. He describes exertional discomfort which occurs from his mid abdomen up to his neck, comes on with exertion and it can be minimal exertion such as walking from the parking lot into the grocery store. When he gets that he has to stop what he is doing, rest for several minutes before it resolves and he can continue his activity. He does not recall ever getting this before. When he came in for his cardioversion (he cannot tell if he is in atrial fibrillation) he was in sinus rhythm at a controlled heart rate and asymptomatic. He does not have lightheadedness, dizziness or presyncope. Sofia gandhi is not having any difficulty on Eliquis and his last dose was the evening of August 02, 2023.. Physical Exam Physical Exam: Constitutional: Alert, cooperative and in no distress. HEENT: Unremarkable Neck: No jugular venous distention, carotid pulses are normal and equal bilaterally without bruits. Pulmonary: Clear to auscultation bilaterally. Cardiac: Regular rhythm with no murmur, gallop or rub. Abdomen: Soft, nontender with normal bowel sounds. Extremities: No edema. Distal pulses intact. Neurologic: No focal findings. Gait is steady. Skin: No rash, ecchymoses or petechiae. Results & Data Vital Signs (Past 12 Hours) Vital Signs Pulse Resp BP Pulse Ox O2 Del Method 08/03/23 07:18 62 18 125/75 97 Room Air Diagnostic Findings An electrocardiogram done today shows sinus rhythm with minor inferolateral ST-T abnormalities. These ST-T abnormalities are similar to prior tracings. PG Care Time/CCT Total # of Minutes Spent Total Time Spent with Patient: Total time spent is greater than 50% in coordination of care (as documented) at patient's floor/unit and/or counseling patient: Coding Level of Care Code 63891 SUB INP/OBS CARE 3/50MIN Diagnoses Persistent atrial fibrillation I48.19 Atrial fibrillation type: persistent (not longstanding) Anticoagulant long-term use Z79.01 Chronic kidney disease, stage III (moderate) N18.30 Primary hypertension I10 Hypertension type: primary hypertension Unstable angina I20.0 (1) Atrial fibrillation Atrial fibrillation type: persistent (not longstanding) Qualified Code(s): I48.19 - Other persistent atrial fibrillation (4) Hypertension Hypertension type: primary hypertension Qualified Code(s): I10 - Essential (primary) hypertension
[2023-08-03] MEDS ORDERED: ACETAMINOPHEN 325 MG TAB PO PRN (08:26)
[2023-08-03] MEDS ORDERED: MAGNESIUM HYDROXIDE SUSP 30 ML UDC PO PRN (08:26)
[2023-08-03] MEDS ORDERED: NITROGLYCERIN SL 0.4 MG/TAB TAB SL PRN (08:26)
[2023-08-03] MEDS ORDERED: DOXEPIN HCL 10 MG CAPSULE PO PRN (08:31)
[2023-08-03 08:32] LABS: Basophils # (auto) 0.03 K/uL (0.00-0.20); Basophils % (auto) 0.4 %; Eosinophils % (auto) 1.5 %; Hematocrit (blood only) 36.6 % (42.0-52.0); Hemoglobin 12.1 g/dl (14.0-18.0); Immature Granulocytes # (auto) 0.05 K/uL (0.01-0.20); Immature Granulocytes % (auto) 0.7 %; Mean Corpuscular Hemoglobin 31.2 pg (25.0-34.0); Mean Corpuscular Hgb Conc 33.1 g/dL (32.0-36.0); Mean Corpuscular Volume 94.3 fL (80.0-100.0); Mean Platelet Volume 11.9 fL (9.4-12.4); Monocytes # (auto) 0.93 K/uL (0.11-0.59); Monocytes % (auto) 13.9 %; Neutrophils # (auto) 4.37 K/uL (1.40-6.50); Neutrophils % (auto) 65.5 %; Platelet Count 62 K/uL (130-400); RDW Standard Deviation 51.8 fL (36.4-46.3); Red Blood Count 3.88 M/uL (4.70-6.10); White Blood Count 6.68 K/ul (4.8-10.8)
[2023-08-03 08:46] LABS: Calcium 8.8 mg/dl (8.6-10.3); Potassium 4.5 mmol/L (3.5-5.1)
[2023-08-03 08:52] LABS: BUN Creatinine Ratio 23.5 (10-20); Creatinine Clr Calc Pharmacy 25.8 ml/min; Est GFR (African American) 30.4 ml/min; Est GFR (Non-African American) 26.2 ml/min
[2023-08-03 08:59] LABS: Troponin I High Sensitivity 101.5 pg/ml (0-20)
[2023-08-03] MEDS: SODIUM CHLORIDE 0.9% 1,000 ML IV SCH (10:30)
--- NOTE | 2023-08-03 11:28 | History & Physical Report ---
Date of Service August 03, 2023 Assessment & Plan (1) Unstable angina: Plan: Unstable Angina -Denies chest pain however he does endorse that he has been progressively more short of breath attempting to go up stairs and progressively decreasing exercise tolerance, and is requiring increasing time to catch his breath with relatively minimal exertion such as walking short distances Heparinized Platelet count is low, 62 K. No active bleeding. No recent history of heparin treatment. With unstable angina benefits of heparin outweigh risk at this time, will start on low-dose heparin nomogram without bolus. Last Eliquis dose was evening of 08/01. Low-dose nomogram ordered. Troponin trended TTE with new moderate-severe TR, progressive MR, RV dilationdysfunction compared to 2019. LVEF 60-65% without regional wall motion abnormalities Thrombocytopenia,? Immune thrombocytopenia -Patient is with monitoring for CLL. Patient does endorse he gets cold easily but denies night sweats/fevers. Thrombocytopenia is Progressive since 03/2023, currently platelet count 62 on admission Peripheral smear, LDH, reticulocyte count are pending, direct Stephanie test is negative total bili 1.5 with direct bili 0.4 Hemoglobin baseline approximately 11.312.7, 12.1 on admission No recent viral illnesses to negate viral suppression Total bili and direct bili is elevated, Stephanie test/LDH are pending -Tickborne testing is pending given development of first-degree heart block since 2018 and mild transaminitis, although lower suspicion for this - Discussed with [facility] oncology. Agree with lab workup as above, in addition to a noncontrast CTabdomen to evaluate for splenomegaly. Will follow this workup, do not recommend addition of steroids at this time but will continue to follow. 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 Declined hormonal/radiation treatment, diagnosed with recurrent disease 2017. S/p right mastectomy September 2017 T1b/N0/M0 Noted, no acute change in management APPLE - Clinically volume contracted - Baseline cr ~1.7, acutely elevated on admission 2.17 -Plasma-Lyte bolus 500 cc, in addition to 1 L supplemental maintenance ordered. Monitor for signs of fluid overload. Trend BMP. If hypoxia/fluid overload develop, hold fluids BMP daily, hold nephrotoxins pAfib Sinus on admission Home medications continued. doac held while on heparin drip Cardiology following T2DM A1c 6.9, diet controlled BSG on admission 103/119. SSI only ordered Heart healthy DM diet Hypothyroidism TSH pending, continue Synthroid DVT prophylaxis: Heparinized Disposition: PCU CODE STATUS: Full code Diet: Heart healthy, n.p.o. at midnight (2) Chronic kidney disease, stage III (moderate): (3) Atrial fibrillation: (4) Anticoagulant long-term use: (5) Hypertension: (6) Hypothyroidism: (7) Type 2 diabetes mellitus: (8) Thrombocytopenia: (9) CLL (chronic lymphocytic leukemia): Admission and Anticipated Discharge Date Admission Date: August 03, 2023 History of Present Illness Primary Care Provider: Raffi Alva MD Maxwell is an 88-year-old male with a history of paroxysmal A-fib, type 2 diabetes, CKD, hypothyroidism who presented for cardioversion for symptomatic A- fib. On evaluation 08/02 he was in sinus rhythm however discussion with the patient concerning for unstable angina within the last week and was recommended for cardiac catheterization. Lab work at that time showed thrombocytopenia progressive since 03/2023, elevated troponin, and an APPLE with creatinine of 2.17 from a baseline of approximately 1.7. Patient was recommended for admission and optimization Maxwell is seen at the bedside. He reports he lives in a store story house and has been increasingly breathless with attempted activity. He reports his breathlessness has progressively increased to the point of having prolonged rest periods with only minimal exertion or walking in the last week even on a flat plane. He denies chest pain at any point, no sweats. He has not had fevers or chills but notes he gets cold easily. He had no rashes or tick bites. Has had intermittent constipation a week ago. Denies diarrhea. No nausea/vomiting. He has had intermittent trace ankle swelling which improves after elevating his legs at night. He denies orthopnea. He reports he last took his Eliquis last night. He does not use tobacco products or alcohol. Reports he does have diabetes but this is controlled with diet with an A1c less than 7 with no medications. He does have a history of double mastectomy, right performed in 2017 and left in 2020 without chemo or radiation. This was for ductal carcinoma. He also follows with [facility] oncology for CLL noted on a node biopsy but without weight loss, night sweats, or other symptoms so far. He has not been on any heparin products recently to his knowledge, but does take Eliquis for A-fib prophylaxis. Denies medication allergies. Full code. Allergies Allergy/AdvReac Type Severity Reaction Status Date / Time Sulfa (Sulfonamide Allergy Intermediate HIVES Verified 08/03/23 08:33 Antibiotics) Home Medications Medication Instructions Recorded Confirmed Type vit C,V-Sv-zrjfjw-lutein-zeaxan 60 1 cap PO QAM 01/03/19 08/03/23 History mg-13.5 mg-15 mg-2 mg-6 mg capsule (Ocuvite Lutein and Zeaxanthin) psyllium husk 3.4 gram/5.4 gram 1 tsp PO DAILY 10/22/21 08/03/23 History oral powder (Metamucil) levothyroxine 50 mcg tablet 50 mcg PO QAM #90 tabs 11/09/22 08/03/23 Rx (Euthyrox) apixaban 2.5 mg tablet (Eliquis) 2.5 mg PO BID #180 tabs 12/12/22 08/03/23 Rx mecobalamin (vitamin B12) 5,000 2,500 mcg (1/2 x 5,000 mcg) PO Q 03/29/23 08/03/23 Rx mcg disintegrating tablet OTHER DAY #1 tab atorvastatin 20 mg tablet 10 mg PO QAM 07/13/23 08/03/23 History metoprolol succinate 50 mg 75 mg PO QAM 07/13/23 08/03/23 History tablet,extended release 24 hr clonazepam 0.5 mg tablet 0.5 mg PO .QHS PRN insomnia #30 07/26/23 08/03/23 Rx tabs ropinirole 0.25 mg tablet 0.25 mg PO DAILY #60 tabs 07/26/23 08/03/23 Rx flecainide 50 mg tablet 50 mg PO Q12H #60 tabs 07/27/23 08/03/23 Rx doxepin 10 mg capsule 10 mg PO HS PRN insomnia 07/28/23 08/03/23 History Past Med/Surg History Medical History History of cardioversion 07/18/23, [facility] Anticoagulant long-term use eliquis Hypothyroidism History of anesthesia reaction reports constipation, sleep disturbances and vission changes x 1 year following removal of loose body LLE 2000 History of gout Pancreatic cyst Constipation IBS (irritable bowel syndrome) DM type 2 (diabetes mellitus, type 2) diet controlled, no meds HLD (hyperlipidemia) Atrial flutter hx of Hypertension Chronic kidney disease, stage III (moderate) follows with Dr. 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 Monae--on BB and eliquis Benign essential hypertension Surgical History History of lymph node excision 01/2023 off right chest H/O left mastectomy History of surgery removal loose body x 2 LLE History of cataract surgery History of left hip replacement History of right hip replacement History of right mastectomy History of colonoscopy Family History Other No family history of adverse response to anesthesia Denies family history of Ovarian cancer Prostate cancer Breast cancer Lung cancer Colorectal cancer Social History Smoking Status: Never smoker Second Hand Exposure: No; Do You Dip or Chew Tobacco: No; Tobacco Cessation Education Requested by Patient: No Hx Alcohol Use: Yes Alcohol type: beer and wine Hx Substance Use: No Preferred Language: Liberian Communication Ability: Effective Email Production Consultant Required: No Beliefs That Will Affect Care: None marital status: / Current Living Situation: Alone 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 NAD. Cooperative. HEENT: Atraumatic, normocephalic. vision hearing intact. poor dentition. Pulm: CTAB A&P. -wheezes, -rales, -rhonchi. Symmetrical chest rise. No increased work of breathing. No respiratory distress. Cardiac: RRR, soft sm. Radial pulses intact and symmetrical. Abdominal: Nontender, nondistended, soft. BS present. Results & Data Results & Data Vital Signs (Past 12 Hours) Vital Signs Temp Pulse Resp BP Pulse Ox O2 Del Method 08/03/23 10:00 36.4 C L 64 16 144/78 H 98 Room Air 08/03/23 07:18 62 18 125/75 97 Room Air Code Status & VTE Plan VTE Prophylaxis Plan VTE Prophylaxis will be ordered: No Reason for no VTE drug order: Contraindicated PG Care Time/CCT Total # of Minutes Spent Total Time Spent with Patient: Total time spent is greater than 50% in coordination of care (as documented) at patient's floor/unit and/or counseling patient: Coding Level of Care Code 81352 INT INP/OBS CARE 3/75MIN Diagnoses Unstable angina I20.0 Chronic kidney disease, stage III (moderate) N18.30 Persistent atrial fibrillation I48.19 Atrial fibrillation type: persistent (not longstanding) Anticoagulant long-term use Z79.01 Primary hypertension I10 Hypertension type: primary hypertension Hypothyroidism E03.9 Type 2 diabetes mellitus E11.9 Thrombocytopenia D69.6 CLL (chronic lymphocytic leukemia) C91.10 (3) Atrial fibrillation Atrial fibrillation type: persistent (not longstanding) Qualified Code(s): I48.19 - Other persistent atrial fibrillation (5) Hypertension Hypertension type: primary hypertension Qualified Code(s): I10 - Essential (primary) hypertension
[2023-08-03] MEDS: FLECAINIDE ACETATE 100 MG TABLET PO SCH (12:19)
[2023-08-03] MEDS: METOPROLOL SUCC 25MG EXT REL TAB PO SCH (12:20)
[2023-08-03] MEDS: ATORVASTATIN 10 MG TAB PO SCH (12:20)
[2023-08-03] MEDS: CYANOCOBALAMIN (B-12) 2,500 MCG TABLET PO SCH (12:21)
[2023-08-03] MEDS: PSYLLIUM or GUAR GUM FIBER POWDER PACKET PO SCH (12:21)
[2023-08-03] MEDS: rOPINIRole HCL 0.25 MG TABLET PO SCH (12:21)
[2023-08-03] MEDS: CEROVITE ADV FORMULA TAB PO SCH (12:21)
[2023-08-03] MEDS: LEVOTHYROXINE SODIUM 50 MCG TABLET PO SCH (12:22)
[2023-08-03 12:41] LABS: Albumin Level 3.9 gm/dl (3.4-5.0); Bilirubin Direct 0.4 mg/dl (0-0.2); Bilirubin,Total 1.5 mg/dl (0.2-1.0)
[2023-08-03 12:51] LABS: INR 1.2 (0.9-1.1); Partial Thromboplastin Ratio 1.1; Partial Thromboplastin Time 31 Seconds (21-31)
[2023-08-03 13:21] LABS: Reticulocyte % 1.26 % (0.50-2.00); Reticulocytes # 0.05 10^6/uL (0.020-0.100)
[2023-08-03] MEDS: PLASMA-LYTE A 250 ML IV ONE (13:21)
[2023-08-03] MEDS: Heparin IV Adult Wt-Based Low-Dose *NO* INITIAL Bolus Protocol IV STA (14:01)
[2023-08-03] MEDS: PLASMA-LYTE A 1,000 ML IV SCH (14:01)
[2023-08-03] MEDS: HEPARIN SODIUM/DEXTROSE 25,000 UNITS/500 ML BAG IV SCH (14:01)
--- NOTE | 2023-08-03 14:13 | XCELERA ---
[id number]
--- NOTE | 2023-08-03 15:56 | CT Scan Report ---
ABDOMEN AND PELVIS CT WITHOUT CONTRAST CT DOSE: 1103.6 mGy.cm HISTORY: ?splenomegaly TECHNIQUE: Multiaxial CT images of the abdomen and pelvis were performed without contrast. A dose lo wering technique was utilized adhering to the principles of ALARA. COMPARISON STUDY: Abdomen and pelvis CT 08/31/2021. FINDINGS: Stable 4 mm nodule within the right lower lobe on image 4. This is likely benign given the long-term stability. Mild chronic interstitial thickening again noted at the lung bases. There are tr jewels bilateral pleural effusions. The heart is mildly enlarged. No pneumoperitoneum. No pneumatosis. T here are bilateral total hip arthroplasties. Old, healed left pubic ring fractures are noted. Degener ative changes within the lumbar spine. There are old, healed left-sided rib fractures. Moderate body wall edema. Small fat/fluid containing right inguinal hernia. Stable 12 mm hypodense lesion within th e pancreatic neck the unenhanced liver adrenal glands are unremarkable. Normal spleen. No evidence fo r splenomegaly. Moderate bilateral perinephric edema. Bilateral peripelvic renal cysts are again note d. No hydronephrosis. There is a punctate stone within the upper pole the right kidney on image 91. N o left renal calculi. No ureteral calculi. No hydronephrosis. Periportal edema is noted. There is a s mall amount of ascites within the abdomen and pelvis. No retroperitoneal hematoma or lymphadenopathy. Calcified plaque within the normal caliber abdominal aorta. Cholelithiasis. The gallbladder is contr acted. The bladder is unremarkable. The prostate gland is mildly enlarged. Suboptimal evaluation for bowel pathology due to the lack of intravenous and oral contrast. However, no definite bowel wall thi ckening or obstruction. Colonic diverticulosis. No evidence for acute diverticulitis. Normal appendix . IMPRESSION: 1. The spleen is normal in size. 2. Diffuse body wall edema, periportal edema, trace bilateral pleural effusions, and a small amount o f ascites. 3. Cholelithiasis. 4. No definite bowel wall thickening or obstruction. 5. Additional findings as described above. ACT 112: Negative or not required by law. Electronically signed by: Mario Cardona M.D. 08/03/2023 3:54 PM
[2023-08-03 20:53] LABS: ANTI-Xa, UFH(UnfractionatedHep 0.72 IU/ml (0.3-0.7)
[2023-08-03] MEDS: bisacodyL 10 MG SUPP PR PRN (23:09)
[2023-08-04] MEDS: clonazePAM 0.5 MG TAB PO PRN (00:10)
[2023-08-04 03:45] LABS: Basophils # (auto) 0.04 K/uL (0.00-0.20); Basophils % (auto) 0.8 %; Eosinophils # (auto) 0.07 K/uL (0.00-0.50); Eosinophils % (auto) 1.3 %; Hemoglobin 11.5 g/dl (14.0-18.0); Immature Granulocytes # (auto) 0.03 K/uL (0.01-0.20); Immature Granulocytes % (auto) 0.6 %; Lymphocytes # (auto) 1.02 K/uL (1.20-3.40); Lymphocytes % (auto) 19.5 %; Mean Corpuscular Hemoglobin 31.2 pg (25.0-34.0); Mean Corpuscular Hgb Conc 32.9 g/dL (32.0-36.0); Mean Corpuscular Volume 94.9 fL (80.0-100.0); Mean Platelet Volume 11.5 fL (9.4-12.4); Monocytes # (auto) 0.62 K/uL (0.11-0.59); Monocytes % (auto) 11.8 %; Neutrophils # (auto) 3.46 K/uL (1.40-6.50); Platelet Count 55 K/uL (130-400); RDW Standard Deviation 51.7 fL (36.4-46.3); Red Blood Count 3.69 M/uL (4.70-6.10); White Blood Count 5.24 K/ul (4.8-10.8)
[2023-08-04 03:57] LABS: BUN Creatinine Ratio 24.3 (10-20); Calcium 8.1 mg/dl (8.6-10.3); Creatinine Clr Calc Pharmacy 27.7 ml/min; Est GFR (African American) 33.1 ml/min; Est GFR (Non-African American) 28.6 ml/min; Potassium 4.4 mmol/L (3.5-5.1)
[2023-08-04 04:05] LABS: Troponin I High Sensitivity 86.4 pg/ml (0-20)
[2023-08-04 04:13] LABS: ANTI-Xa, UFH(UnfractionatedHep 0.72 IU/ml (0.3-0.7)
--- NOTE | 2023-08-04 08:43 | Pre Anesthesia Assessment ---
Date of Service August 04, 2023 Pre Sedation Assessment Vital Signs Temp Pulse Pulse Resp BP BP Pulse Ox 08/04/23 08:30 98.4 F 66 16 121/70 98 08/04/23 07:59 98.6 F 55 L 16 109/69 08/04/23 03:57 97.5 F L 51 L 16 123/74 96 08/03/23 23:56 97.3 F L 69 16 148/88 H 98 08/03/23 23:00 66 08/03/23 20:00 08/03/23 19:17 97.9 F 65 18 118/79 97 08/03/23 15:27 97.3 F L 62 19 109/73 99 08/03/23 10:00 97.5 F L 64 16 144/78 H 98 O2 Del Method 08/04/23 08:30 Room Air 08/04/23 07:59 Room Air 08/04/23 03:57 Room Air 08/03/23 23:56 Room Air 08/03/23 23:00 08/03/23 20:00 Room Air 08/03/23 19:17 Room Air 08/03/23 15:27 Room Air 08/03/23 10:00 Room Air Cardiovascular + regular rate Respiratory + respiratory effort normal Pre-Sedation Airway Assessment Smoking Status: Never smoker Hx Sleep Apnea: No Hx Difficult Intubation: No Short, Thick Neck: No Thyromental Distance: > or= 3.5 Finger Breadths Oral Cavity: + WNL Mallampati Class: III ASA: ASA3 NPO Status Date of Last Intake of Fluids: 08/02/23 Time of Last Intake of Fluids: 20:00 Date of Last Intake of Solid Food: 08/02/23 Time of Last Intake of Solid Foods: 20:00 Procedure Planning Contraindications for Sedation: none Current Medications Reviewed: Yes Notes The planned sedation has been discussed with the patient. Informed Consent was obtained. I have identified the patient, determined the appropriateness of sedation and have assessed the patient immediately prior to the procedure. All medicine(s) and interventions are by my order.
[2023-08-04] MEDS: NITROGLYCERIN/D5W 100MCG/ML 20ML SYR ONE (09:17)
[2023-08-04] MEDS: niCARdipine HCL INJ 2.5 MG/ML 10 ML AMP ONE (09:17)
[2023-08-04] MEDS: MIDAZOLAM HCL 1 MG/ML 2ML VIAL ONE (09:43)
[2023-08-04] MEDS: fentaNYL citrate PF 100 MCG/2 ML VIAL ONE (09:44)
[2023-08-04] MEDS: OPTIRAY 350 ONE (09:44)
[2023-08-04 09:48] LABS: iSTAT Arterial Blood Gas HCO3 22 meg/L (19-24); iSTAT Arterial Blood Gas pCO2 42 mmHg (35-46); iSTAT Arterial Blood Gas pH 7.33 (7.35-7.45); iSTAT Arterial Blood Gas pO2 59 mmHg (80-95); iSTAT Carbon Dioxide 23 mmol/L (24-31); iSTAT Hematocrit 34 % (42-52); iSTAT Hemoglobin 11.6 g/dl (14.0-18.0); iSTAT Potassium 4.2 mmol/L (3.3-5.0); iSTAT Sodium 137 mmol/L (135-144)
--- NOTE | 2023-08-04 09:53 | Post Anesthesia Assessment ---
Date of Service August 04, 2023 Post Sedation Assessment Vital Signs Temp Pulse Pulse Resp BP BP Pulse Ox 08/04/23 08:30 98.4 F 66 16 121/70 98 08/04/23 07:59 98.6 F 55 L 16 109/69 08/04/23 03:57 97.5 F L 51 L 16 123/74 96 08/03/23 23:56 97.3 F L 69 16 148/88 H 98 08/03/23 23:00 66 08/03/23 20:00 08/03/23 19:17 97.9 F 65 18 118/79 97 08/03/23 15:27 97.3 F L 62 19 109/73 99 08/03/23 10:00 97.5 F L 64 16 144/78 H 98 O2 Del Method 08/04/23 08:30 Room Air 08/04/23 07:59 Room Air 08/04/23 03:57 Room Air 08/03/23 23:56 Room Air 08/03/23 23:00 08/03/23 20:00 Room Air 08/03/23 19:17 Room Air 08/03/23 15:27 Room Air 08/03/23 10:00 Room Air Recovery Score Activity: Moves 4 extremities Respiration: Deep Breath/Cough Circulation: +/-20% PreAnes Value Consciousness: Fully Awake Oxygen Saturation: O2 needed for >90% Discharge Sedation Level of Care: Fast Track Phase II Post Sedation Plan On clinical assessment, the patient appears to have tolerated the sedation without complications. Patient is recovering as anticipated. Patient will continue to be monitored by nursing and may be discharged when sedation discharge criteria are met per below protocol. Upon Completions of procedure up to 15 minutes continue every 5 minute vital signs and the P.A.R. score; then discharge to a Phase I or Fast Track to Phase II per the following guidelines: * Discharge Patient to appropriate Phase II area if PAR is 8 or greater or return to pre- procedure baseline. The post - procedure orders will be as directed. * If PAR score is less than 8 or not return to pre-procedure baseline then patient will follow Phase I monitoring till PAR is reached for Phase II. The Phase I may be done in procedure room or may call to secure a Phase I area. * If naloxone or flumazenil are used for reversal, hold in Phase I for continued monitoring from when last reversal dose was given for a minimum of 60 minutes or longer pending the nurse and/or physician discretion of patient condition before discharge to Phase II. Please call the Sedation Physician to re-evaluate and complete post-note for discharge to Phase II area. Do NOT discharge from procedure sedation or Phase 1 until post- sedation evaluation note is complete by procedure /sedation MD Sedation Discharge Instructions to be given to the patient at discharge to home.
--- NOTE | 2023-08-04 09:56 | Cardiac Catheterization ---
[facility] Data: Games Manager Cardiac Status Clinical evaluation leading to the procedure CAD Presenation: Non STEMI Anginal Classification: CCS III Diagnostic Physicians Name: Cali Cheek MD Closure Device Recommendations: Medical Therapy and/or Counseling Cardiac Cath Procedure Full Procedure Date August 04, 2023 Pre-Procedure Diagnosis Pre-Procedure Diagnosis: Non STEMI and Cardiomyopathy AUC Score AUC Score: 7 Post-Procedure Diagnosis Post-Procedure Diagnosis: Mild CAD and Elevated Intracardiac Pressures Procedure(s) Performed Procedure(s) Performed: Coronary Angiography, Left Heart Cath and Right Heart Cath Fishing Rod Mechanic Cali Cheek MD Fur Trimming Machine Operator(s) Bo Estimated Blood Loss Estimated Blood Loss: 10 Medication(s) Medication(s): Fentanyl, Heparin, Lidocaine 1%, Nicardipine, Nitroglycerin and Versed Summary of Findings Indication: Suspected ACS, RV failure Access: 6 Fr right radial artery, 6 Fr right antecubital vein Catheters: [place], 6 Fr [place] Findings: LM -normal caliber, no significant disease LAD -medium caliber, mid segment luminal regularities, distal vessel wraps around apex. Gives off large high D1 without significant disease. Circumflex -large caliber, no significant disease, gives off large OM 2 without significant disease. RCA -dominant, no significant disease. Small RPDA with luminal irregularities. RA 9 RV 21/7 PA 28/10 (18) PAWP 5 LVEDP 7 PaSat 52% AoSat 88% Anita CO/CI 5.4/2.7 Arterial Closure: TR band Summary: 1. Essentially normal coronary arteries 2. Elevated right-sided filling pressures. 3. Low left-sided filling pressures. 4. Normal pulmonary artery pressures. 5. Normal cardiac output Recommendations: Recent chest pain/minimally elevated troponin does not represent ACS. Can discontinue heparin infusion Recommend close heart failure follow-up for RV failure, severe TR Continue AF rhythm control Hemodynamics Rest Ao:: /47/65 Final Ao: /47/64 LV: 89/7 Recommendations Recommendations: Medical Therapy and/or Counseling Specimens Specimens: None Radiation Exposure (mGy) 595 Contrast (mls) 50 Anesthesia Moderate 8528-3932 Procedural Complication(s) None Disposition PCU I attest to the content of the Intraoperative Record and any orders documented therein. Any exceptions are noted below. [employer] Card Cath Procedure Codes Cardiac Catheterization Procedure 1: Cardiovascular Cath Procedures: 39804 Coronaries & LHC (+/-LV) & RHC Moderate Sedation Procedure 1: Sedation/Anesthesia: 93411 Mod Sedation by the same physician;Init15 Min Child Age 5 & Up PG Care Time/CCT Total # of Minutes Spent Total Time Spent with Patient: Total time spent is greater than 50% in coordination of care (as documented) at patient's floor/unit and/or counseling patient:
[2023-08-04 12:11] LABS: iSTAT Arterial Blood Gas HCO3 23 meg/L (19-24); iSTAT Arterial Blood Gas pCO2 43 mmHg (35-46); iSTAT Arterial Blood Gas pH 7.33 (7.35-7.45); iSTAT Arterial Blood Gas pO2 < 32 mmHg (80-95); iSTAT Carbon Dioxide 24 mmol/L (24-31); iSTAT Hematocrit 34 % (42-52); iSTAT Hemoglobin 11.6 g/dl (14.0-18.0); iSTAT Potassium 4.2 mmol/L (3.3-5.0); iSTAT Sodium 136 mmol/L (135-144)
[2023-08-04] MEDS: HEPARIN (PORCINE) 1000 UNIT/ML 10 ML (CATH LAB USE ONLY) ONE (13:22)
[2023-08-04] MEDS: ASPIRIN 81 MG CHEW ONE (13:23)
[2023-08-04] MEDS: IODIXANOL (VISIPAQUE) 320 MG/ML 100ML IV ONE (13:23)
--- NOTE | 2023-08-04 17:04 | Hospitalist Progress Note ---
Date of Service August 04, 2023 Assessment & Plan (1) Unstable angina: Plan: Initially brought in with concern for unstable angina however left heart catheterization did not show any occlusive coronary disease and normal ejection fraction. Discussed case with Dr. Castro who will follow patient in the clinic. Does not feel that this chest pain was symptomatic atrial arrhythmia at this time\ Queried the patient regarding further workup perhaps with pulmonary evaluation but he states he wanted to go home will have outpatient workup. Platelet count is low, 62 K. No active bleeding. Did have screening Lyme test for thrombocytopenia this was negative as well as anaplasmosis and babesiosis - Discussed with [facility] oncology. Agree with lab workup as above, i splenomegaly not seen on CT scan. 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 Declined hormonal/radiation treatment, diagnosed with recurrent disease 2017. S/p right mastectomy September 2017 T1b/N0/M0 Noted, no acute change in management APPLE versus post procedure recommend consistent oral intake pAfib converted to sinus rhythm. Cardiology recommends continuing flecainide and metoprolol will have outpatient follow-up Resume anticoagulation T2DM A1c 6.9, diet controlled BSG on admission 103/119. SSI only ordered Heart healthy DM diet Hypothyroidism TSH pending, continue Synthroid CODE STATUS: Full code (2) Chronic kidney disease, stage III (moderate): (3) Atrial fibrillation: (4) Anticoagulant long-term use: (5) Hypertension: (6) Hypothyroidism: (7) Type 2 diabetes mellitus: (8) Thrombocytopenia: (9) CLL (chronic lymphocytic leukemia): Admission and Anticipated Discharge Date Admission Date: August 03, 2023 Results & Data Results & Data Vital Signs (Past 12 Hours) Vital Signs Temp Pulse Resp BP BP Pulse Ox O2 Del Method 08/04/23 16:16 97.5 F L 56 L 20 120/74 118/79 100 08/04/23 14:00 98.6 F 66 18 100/61 96 Room Air 08/04/23 11:00 97.5 F L 56 L 20 120/74 100 Room Air 08/04/23 10:15 55 L 16 99/63 L 95 Room Air 08/04/23 10:05 55 L 16 105/57 L 95 Room Air 08/04/23 08:30 98.4 F 66 16 121/70 98 Room Air 08/04/23 07:59 98.6 F 55 L 16 109/69 Room Air PG Care Time/CCT Total # of Minutes Spent Total Time Spent with Patient: Total time spent is greater than 50% in coordination of care (as documented) at patient's floor/unit and/or counseling patient: Coding Diagnoses Unstable angina I20.0 Chronic kidney disease, stage III (moderate) N18.30 Persistent atrial fibrillation I48.19 Atrial fibrillation type: persistent (not longstanding) Anticoagulant long-term use Z79.01 Primary hypertension I10 Hypertension type: primary hypertension Hypothyroidism E03.9 Type 2 diabetes mellitus E11.9 Thrombocytopenia D69.6 CLL (chronic lymphocytic leukemia) C91.10 (3) Atrial fibrillation Atrial fibrillation type: persistent (not longstanding) Qualified Code(s): I48.19 - Other persistent atrial fibrillation (5) Hypertension Hypertension type: primary hypertension Qualified Code(s): I10 - Essential (primary) hypertension
--- NOTE | 2023-08-04 17:05 | Discharge Summary ---
Date of Service August 04, 2023 Admission HPI Per Admitting Provider Maxwell is an 88-year-old male with a history of paroxysmal A-fib, type 2 diabetes, CKD, hypothyroidism who presented for cardioversion for symptomatic A- fib. On evaluation 08/02 he was in sinus rhythm however discussion with the patient concerning for unstable angina within the last week and was recommended for cardiac catheterization. Lab work at that time showed thrombocytopenia progressive since 03/2023, elevated troponin, and an APPLE with creatinine of 2.17 from a baseline of approximately 1.7. Patient was recommended for admission and optimization Maxwell is seen at the bedside. He reports he lives in a store story house and has been increasingly breathless with attempted activity. He reports his breathlessness has progressively increased to the point of having prolonged rest periods with only minimal exertion or walking in the last week even on a flat plane. He denies chest pain at any point, no sweats. He has not had fevers or chills but notes he gets cold easily. He had no rashes or tick bites. Has had intermittent constipation a week ago. Denies diarrhea. No nausea/vomiting. He has had intermittent trace ankle swelling which improves after elevating his legs at night. He denies orthopnea. He reports he last took his Eliquis last night. He does not use tobacco products or alcohol. Reports he does have diabetes but this is controlled with diet with an A1c less than 7 with no medications. He does have a history of double mastectomy, right performed in 2017 and left in 2020 without chemo or radiation. This was for ductal carcinoma. He also follows with [facility] oncology for CLL noted on a node biopsy but without weight loss, night sweats, or other symptoms so far. He has not been on any heparin products recently to his knowledge, but does take Eliquis for A-fib prophylaxis. Denies medication allergies. Full code. Principal Diagnosis chest pain with Left heart cath without occlusive lesion afib with conversion to NSR Discharge Data Allergies Allergy/AdvReac Type Severity Reaction Status Date / Time Sulfa (Sulfonamide Allergy Intermediate HIVES Verified 08/03/23 08:33 Antibiotics) Consultations 08/03/23 10:38 Consult Hospitalist Routine Procedures Performed Operation Date: 08/04/23 08:00 Actual Procedures p Cath, Right and Left Heart - Cali Cheek MD s Cineradiography w/Routine Exam - Cali Cheek MD Ordered Studies 08/03/23 12:51 CT abd pelvis wo con Urgent 08/04/23 06:31 CL Cath Imgs for PACS use only Routine Hospital Course (1) Unstable angina: Initially brought in with concern for unstable angina however left heart catheterization did not show any occlusive coronary disease and normal ejection fraction. Discussed case with Dr. Castro who will follow patient in the clinic. Does not feel that this chest pain was symptomatic atrial arrhythmia at this time\ Queried the patient regarding further workup perhaps with pulmonary evaluation but he states he wanted to go home will have outpatient workup. Platelet count is low, 62 K. No active bleeding. Did have screening Lyme test for thrombocytopenia this was negative as well as anaplasmosis and babesiosis - Discussed with [facility] oncology. Agree with lab workup as above, i splenomegaly not seen on CT scan. 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 Declined hormonal/radiation treatment, diagnosed with recurrent disease 2017. S/p right mastectomy September 2017 T1b/N0/M0 Noted, no acute change in management APPLE versus post procedure recommend consistent oral intake pAfib converted to sinus rhythm. Cardiology recommends continuing flecainide and metoprolol will have outpatient follow-up Resume anticoagulation T2DM A1c 6.9, diet controlled BSG on admission 103/119. SSI only ordered Heart healthy DM diet Hypothyroidism TSH pending, continue Synthroid CODE STATUS: Full code (2) Chronic kidney disease, stage III (moderate): (3) Atrial fibrillation: (4) Anticoagulant long-term use: (5) Hypertension: (6) Hypothyroidism: (7) Type 2 diabetes mellitus: (8) Thrombocytopenia: (9) CLL (chronic lymphocytic leukemia): Total Time Total Time Spent Total Time Spent (In Minutes): greater than 30 mintues are required Discharge Plan Discharge Items Patient Disposition: Home - Self-Care Reason For Visit: unstable angina Discharge Diagnosis: non cardiac chest pain atrial fibrillation conversion to NSR with 1 AVB Activity: Resume your previous activity Non-emergency contact: Primary Care Provider Call non-emergency contact if: your symptoms worsen Follow-up/Referrals: Montserrat Newton PA-C [Physician Waste Recycler] - 08/09/23 2:00 pm Diet: Regular Addtl Attending Provider Instructions: during your hospital stay you did have a heart catheterization that showed no significant blockages to your heart arteries and normal heart function the procedure used can place a strain on your kidneys, so be sure to drink plenty of liquids over the next two days continue to take your heart medication, your heart rhythm has returned to normal, and Dr Monae would like to see you in a few weeks, to re evaluate your medical regimen Pending Studies at Discharge: No Stand-Alone Forms: My [facility], Smoking Cessation Medications and DC Order Prescriptions: Continued Eliquis 2.5 mg tablet 2.5 mg PO BID Qty: 180 3RF Metamucil 3.4 gram/5.4 gram powder 1 tsp PO DAILY Rx Instructions: mix into at least 8 oz of water or juice before administering levothyroxine [Euthyrox] 50 mcg tablet 50 mcg PO QAM Qty: 90 3RF mecobalamin (vitamin B12) 5,000 mcg tablet,disintegrating 2,500 mcg PO Q OTHER DAY Qty: 1 0RF Ocuvite Lutein and Zeaxanthin 60 mg-13.5 mg- 15 mg-2 mg-6 mg capsule 1 cap PO QAM clonazepam 0.5 mg tablet 0.5 mg PO .QHS PRN (Reason: insomnia) Qty: 30 0RF Rx Instructions: Supervising physician Raffi Coleman I [id number] [facility] [id number] ropinirole 0.25 mg tablet 0.25 mg PO DAILY Qty: 60 1RF Rx Instructions: Take 1 tab daily x 1 wk, then if tolerating increase to 0.5 mg daily flecainide 50 mg tablet 50 mg PO Q12H Qty: 60 2RF atorvastatin 20 mg tablet 10 mg PO QAM Rx Instructions: 20 mg PO 1/2 tablet at bedtime metoprolol succinate 50 mg tablet extended release 24 hr 75 mg PO QAM doxepin 10 mg capsule 10 mg PO HS PRN (Reason: insomnia) Discharge Orders: Discharge Order (Routine); Ordered 08/04/23 Ordered By: Nathanael Dye Admission Data Admit Date/Time: 08/03/23 08:26 Attending Provider: Nathanael Dye Admit Provider: Yordan Monae Primary Care Provider: Raffi Alva V. Other Providers: Anish Frazier Other Interventions: Discharge Summary Assessment (RN) Last Done: 08/04/23 16:16 Coding Level of Care Code 97424 INP/OBS DISCH >30 MIN Diagnoses Unstable angina I20.0 Chronic kidney disease, stage III (moderate) N18.30 Persistent atrial fibrillation I48.19 Atrial fibrillation type: persistent (not longstanding) Anticoagulant long-term use Z79.01 Primary hypertension I10 Hypertension type: primary hypertension Hypothyroidism E03.9 Type 2 diabetes mellitus E11.9 Thrombocytopenia D69.6 CLL (chronic lymphocytic leukemia) C91.10
--- NOTE | 2023-08-05 06:33 | Electrocardiogram Report ---
Test Reason : Blood Pressure : / mmHG Vent. Rate : 063 BPM Atrial Rate : 063 BPM P-R Int : 290 ms QRS Dur : 106 ms QT Int : 440 ms P-R-T Axes : 052 016 079 degrees QTc Int : 450 ms Sinus rhythm with 1st degree A-V block Nonspecific T wave abnormality Abnormal ECG When compared with ECG of 27-JUL-2023 10:16, Sinus rhythm has replaced Atrial fibrillation Nonspecific T wave abnormality, improved in Inferior leads Confirmed by Adama Torres ([id number]) on 08/05/2023 6:32:52 AM Referred By: Yordan Monae Confirmed By:Adama Torres
--- NOTE | 2023-08-05 07:06 | Electrocardiogram Report ---
Test Reason : Blood Pressure : / mmHG Vent. Rate : 053 BPM Atrial Rate : 053 BPM P-R Int : 320 ms QRS Dur : 098 ms QT Int : 458 ms P-R-T Axes : 025 027 104 degrees QTc Int : 429 ms Poor data quality, interpretation may be adversely affected Sinus bradycardia with 1st degree A-V block Low voltage QRS Cannot rule out Anterior infarct , age undetermined Nonspecific T wave abnormality Abnormal ECG When compared with ECG of 03-AUG-2023 07:07, No significant change was found Confirmed by Adama Torres ([id number]) on 08/05/2023 7:06:44 AM Referred By: Yordan Monae Confirmed By:Adama Torres
--- NOTE | 2023-08-05 07:35 | Electrocardiogram Report ---
Test Reason : Blood Pressure : / mmHG Vent. Rate : 053 BPM Atrial Rate : 053 BPM P-R Int : 312 ms QRS Dur : 110 ms QT Int : 500 ms P-R-T Axes : 000 046 089 degrees QTc Int : 469 ms Poor data quality, interpretation may be adversely affected Sinus bradycardia with 1st degree A-V block Low voltage QRS Nonspecific T wave abnormality Abnormal ECG When compared with ECG of 03-AUG-2023 16:27, No significant change Confirmed by Adama Torres ([id number]) on 08/05/2023 7:35:34 AM Referred By: Yordan Monae Confirmed By:Adama Torres
[2023-08-05 20:48] LABS: Babesia microti DNA Not Detected (Not Detected)
== END 2023-08-04 20:02 | disposition home or self-care (01) ==
LOC: CC 06:33 → 4W 06:33 → SUATTDRO 08:26

== ENCOUNTER 2023-08-13 13:15 | Inpatient (IN) ==
--- NOTE | 2023-08-13 13:48 | Emergency Department Note ---
Impression & Plan Generalized weakness, Acute kidney injury superimposed on chronic kidney disease, Non-ST elevation OH (NSTEMI), Acute hyperkalemia, Dyspnea on exertion, Elevated lipase, Transaminitis, Elevated brain natriuretic peptide (BNP) level, Acute exacerbation of CHF (congestive heart failure) ED Provider Note HISTORY OF PRESENT ILLNESS: Patient is an 88-year-old male presenting with shortness of breath and weakness. Patient reports for the last week he has been having profound shortness of breath. Reports he is significantly short of breath with any sort of exertion and often has to sit down after taking only a few steps to catch his breath. Denies any significant lower extremity edema. Reports over the last 8 months he has gained 17 pounds. He is not on any fluid pill. He states that today he felt very weak and was having difficulties getting around his house. Denies any chest pain. Denies any nausea or vomiting. Denies any recent head injuries. He states he fell a week ago but has not had any falls since. He states he feels very rundown. No fevers. No medication changes. Patient is on Eliquis. ROS: as above PHYSICAL EXAM: Constitutional: Patient appears in no acute distress. HENT: Head: Normocephalic and atraumatic. Eyes: EOMI, PERRL Mouth/Throat: Mucous membranes moist. Neck: Trachea midline. Neck supple. Cardiovascular: RRR, No murmurs, rubs or gallops. Intact distal pulses. Pulmonary/Chest: No respiratory distress. Breath sounds clear and equal bilaterally. No wheezes or rales. Abdominal: Abdomen soft, no tenderness, rebound or guarding. Musculoskeletal: No tenderness or deformity noted. Trace edema of the bilateral ankles. Skin: Warm and dry. No rash, erythema, pallor or cyanosis Psychiatric: Appropriate mood and affect for situation. Neurological: Alert and keenly responsive. CN II-XII grossly intact, moving all extremities equally and fully. MDM: - Vitals signs showed bradycardia - History obtained via patient. History as above. - Chronic conditions affecting care: HTN; HLD; Afib; DM-2; hypothyroidism - Differential diagnoses include, but are not limited to: Congestive heart failure; acute coronary syndrome; COPD/asthma exacerbation; pulmonary edema; pulmonary embolism; pneumonia; pneumothorax; viral syndrome - Order placed for continuous cardiac monitoring. At this time, monitor showed rate of 56 bpm with normal sinus rhythm, per my interpretation. - External medical records reviewed. Cardiac catheterization from 08/04/2023 was reviewed. Patient was noted to have some elevated right-sided filling pressures but essentially normal coronary arteries. - EKG interpreted by myself showed normal sinus rhythm. Rate bradycardic at 54 bpm. QT 466. No acute ischemic changes. However, patient is noted to have some ST depressions in leads V4 through V6. - Laboratory workup interpreted by myself showed normal WBC; anemia (Hgb 11.9); hyponatremia (Na 128); hyperkalemia (K 6.5); APPLE on CKD (Cr 2.38 - baseline around 1.7); transaminitis (AST 81; ALT 62); elevated troponin (135.6); elevated lipase (172); elevated BNP (717) - COVID negative - CXR negative for pneumonia, per my interpretation - Patient given 1g IV calcium, 1L NS, 5 units IV insulin and 50 mL dextrose of hyperkalemia treatment. - CT head wo contrast negative for acute intracranial pathology - Discussion was had with mental health case manager about patient's case and need for admission - Hospitalist consulted for admission - [facility]. I have personally spent 32 minutes of critical care time in the direct management of this patient. This includes bedside care, interpretation of diagnostic studies, and testing, discussion with consultants, patient, and family members, and other required patient management activities. This 32 minutes is in excess of all separately billable procedures. ASSESSMENT AND PLAN: Diagnosis: generalized weakness; NSTEMI; hyperkalemia; hyponatremia; APPLE on CKD; transaminitis; elevated lipase; dyspnea on exertion; elevated BNP; CHF exacerbation Plan: admit Past Med/Surg History Medical History History of cardioversion 07/18/23, [facility] Anticoagulant long-term use eliquis Hypothyroidism History of anesthesia reaction reports constipation, sleep disturbances and vission changes x 1 year following removal of loose body LLE 2000 History of gout Pancreatic cyst Constipation IBS (irritable bowel syndrome) DM type 2 (diabetes mellitus, type 2) diet controlled, no meds HLD (hyperlipidemia) Atrial flutter hx of Hypertension Chronic kidney disease, stage III (moderate) follows with Dr. 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 Monae--on BB and eliquis Benign essential hypertension Surgical History History of lymph node excision H/O left mastectomy History of surgery History of cataract surgery History of left hip replacement History of right hip replacement History of right mastectomy History of colonoscopy Family History Other No family history of adverse response to anesthesia Denies family history of Ovarian cancer Prostate cancer Breast cancer Lung cancer Colorectal cancer Social History Smoking Status: Never smoker Second Hand Exposure: No; Do You Dip or Chew Tobacco: No; Hx Alcohol Use: Yes Alcohol type: beer and wine Hx Substance Use: No Preferred Language: Maldivian Communication Ability: Effective Supervisor Sample Preparation Required: No Beliefs That Will Affect Care: None marital status: / Current Living Situation: Alone 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 How many Children do You have Comment: one son Feels Safe at Home: Yes Seatbelt Use: always Sunscreen Use: No Assistive Devices: None Allergies Allergies Allergy/AdvReac Type Severity Reaction Status Date / Time Sulfa (Sulfonamide Allergy Intermediate HIVES Verified 08/09/23 14:05 Antibiotics) Home Meds Home Medications Medication Instructions Recorded Confirmed vit C,X-Ao-daclzo-lutein-zeaxan 60 1 cap PO QAM 01/03/19 08/09/23 mg-13.5 mg-15 mg-2 mg-6 mg capsule (Ocuvite Lutein and Zeaxanthin) psyllium husk 3.4 gram/5.4 gram 1 tsp PO DAILY 10/22/21 08/09/23 oral powder (Metamucil) atorvastatin 20 mg tablet 10 mg PO QAM 07/13/23 08/09/23 metoprolol succinate 50 mg 75 mg PO QAM 07/13/23 08/09/23 tablet,extended release 24 hr buspirone 5 mg tablet 5 mg PO HS PRN 08/07/23 08/09/23 docusate sodium 100 mg capsule 200 mg PO HS Constipation 08/07/23 08/09/23 Previous Rx's Medication Instructions Recorded levothyroxine 50 mcg tablet 50 mcg PO QAM #90 tabs 11/09/22 (Euthyrox) apixaban 2.5 mg tablet (Eliquis) 2.5 mg PO BID #180 tabs 12/12/22 mecobalamin (vitamin B12) 5,000 2,500 mcg (1/2 x 5,000 mcg) PO Q 03/29/23 mcg disintegrating tablet OTHER DAY #1 tab clonazepam 0.5 mg tablet 0.5 mg PO .QHS PRN insomnia #30 07/26/23 tabs ropinirole 0.25 mg tablet 0.25 mg PO DAILY #60 tabs 07/26/23 flecainide 50 mg tablet 50 mg PO Q12H #60 tabs 07/27/23 doxepin 10 mg capsule 10 mg PO HS PRN insomnia #30 caps 08/08/23 Results & Data (ED) Vital Signs Vital Signs - 24 hr 08/13/23 13:23 08/13/23 13:31 08/13/23 14:00 Temperature 36.5 C Temperature Source Oral Pulse Rate 55 L 56 L 54 L Respiratory Rate 17 16 15 Respiratory Effort / Characteristics Non-Labored Respiratory Depth Normal Blood Pressure 122/72 135/74 126/76 Blood Pressure Mean 88 94 92 Pulse Oximetry 99 100 100 Oxygen Delivery Method Room Air Room Air Room Air Sepsis Recent Fever Within 48 Hours No Sepsis New/Unexplained Change in Mental Status N/A Sepsis Action Taken by Nursing No Action Required 08/13/23 14:30 08/13/23 15:00 08/13/23 15:10 Temperature Temperature Source Pulse Rate 53 L 56 L 57 L Respiratory Rate 18 18 20 Respiratory Effort / Characteristics Respiratory Depth Blood Pressure 130/76 121/71 Blood Pressure Mean 94 87 Pulse Oximetry 98 Oxygen Delivery Method Room Air Sepsis Recent Fever Within 48 Hours Sepsis New/Unexplained Change in Mental Status Sepsis Action Taken by Nursing Laboratory Data 08/13/23 13:22 08/13/23 13:22 Lab Results 08/13/23 08/13/23 08/13/23 Range/Units 13:22 13:54 15:00 WBC 10.58 (4.8-10.8) K/ul RBC 3.80 L (4.70-6.10) M/uL Hgb 11.9 L (14.0-18.0) g/dl Hct 36.1 L (42.0-52.0) % MCV 95.0 (80.0-100.0) fL MCH 31.3 (25.0-34.0) pg MCHC 33.0 (32.0-36.0) g/dL RDW Std Deviation 53.7 H (36.4-46.3) fL RDW Coeff of Gilbert 15.6 H (11.5-14.5) % Plt Count 72 L (130-400) K/uL MPV 11.6 (9.4-12.4) fL Immature Gran % (Auto) 1.1 % Neut % (Auto) 72.4 % Lymph % (Auto) 16.3 % Kendall % (Auto) 9.3 % Eos % (Auto) 0.5 % Baso % (Auto) 0.4 % Neut # (Auto) 7.67 H (1.40-6.50) K/uL Lymph # (Auto) 1.72 (1.20-3.40) K/uL Kendall # (Auto) 0.98 H (0.11-0.59) K/uL Eos # (Auto) 0.05 (0.00-0.50) K/uL Baso # (Auto) 0.04 (0.00-0.20) K/uL Immature Gran # (Auto) 0.12 (0.01-0.20) K/uL PT 14.2 H (9.0-12.0) Seconds INR 1.3 H (0.9-1.1) Sodium 128 L (136-145) mmol/L Potassium 6.5 H* (3.5-5.1) mmol/L Chloride 97 L (98-107) mmol/L Carbon Dioxide 22 (21-32) mmol/L Anion Gap 9 (3-11) BUN 47 H (6-23) mg/dl Creatinine 2.38 H (0.6-1.4) mg/dl Est Cr Clr Drug Dosing 23.5 ml/min Est GFR ( Amer) 27.2 ml/min Est GFR (Non-Af Amer) 23.5 ml/min BUN/Creatinine Ratio 19.7 (10-20) Glucose 142 H (70-99(Fasting)) mg/dl POC Glucose 212 H (70-99) mg/dl Osmolality 291 (280-300) mOsm/kg Calcium 9.2 (8.6-10.3) mg/dl Magnesium 2.3 (1.7-2.4) mg/dl Total Bilirubin 2.2 H (0.2-1.0) mg/dl AST 81 H (13-39) U/L ALT 62 H (7-52) U/L Alkaline Phosphatase 81 (34-104) U/L Troponin I High Sens 135.6 H* (0-20) pg/ml B-Natriuretic Peptide 717 H (0-100) pg/ml Total Protein 6.7 (6.0-8.3) gm/dl Albumin 4.2 (3.4-5.0) gm/dl Globulin 2.5 (2.5-4.0) gm/dl Albumin/Globulin Ratio 1.7 (0.9-2) Lipase 172 H (11-82) U/L SARS-CoV-2 (PCR) NEGATIVE (Negative) Administered Medications Discontinued Medications Dextrose (Dextrose 50% 50 Ml Syringe) 50 ml IV NOW STA Stop: 08/13/23 14:26 Last Admin: 08/13/23 14:42 Dose: 50 ml Documented By: LON Sodium Chloride (Nss) 1,000 mls @ 999 mls/hr IV .Q1H1M ONE Stop: 08/13/23 15:25 Last Admin: 08/13/23 14:42 Dose: 999 mls/hr Documented By: LON Calcium Gluconate () 1,000 mg in 60 mls @ 240 mls/hr IV NOW STA Stop: 08/13/23 14:39 Last Infusion: 08/13/23 15:05 Dose: Infused Documented By: Admin: 08/13/23 14:42 Dose: 240 mls/hr Documented By: LON Insulin Human Regular (Novolin-R Insulin Per Unit Charge) 5 units IV NOW STA Stop: 08/13/23 14:26 Last Admin: 08/13/23 14:43 Dose: 5 units Documented By: LON Co-signed By: OAC Imaging Data Radiologist's Impression: Chest X-Ray 08/13/23 13:46 XR chest 1V portable CLINICAL HISTORY: shortness of breath TECHNIQUE: Single frontal radiograph of the chest was obtained. Comparison: Comparison is made to chest radiograph 08/09/2023 FINDINGS: No lines and tubes are seen. The cardiomediastinal silhouette is normal. The lungs are clear. No evidence of pleural effusion or pneumothorax. IMPRESSION: No acute abnormalities and in particular no radiographic evidence of pneumonia. ACT 112: Negative or not required by law. Electronically signed by: Darinel Girard M.D. 08/13/2023 2:[address] 08/13/23 14:47 CT head/brain wo con CLINICAL HISTORY: weakness Technique: Contiguous axial CT images of the head were acquired from the base of the skull to the vertex without intravenous contrast administration. Images were viewed in brain, subdural and bone windows. Automated dose lowering techniques and/or adjustment according to patient size were utilized for this exam. Comparison: Comparison is made to CT head 09/26/2021 Findings: Areas of decreased attenuation are present in the periventricular and subcortical white matter bilaterally consistent with small vessel ischemic disease. Generalized cerebral atrophy with commensurate enlargement of the ventricles, sulci, and cisterns is also present. There is no acute intracranial hemorrhage or evidence of acute territorial infarction. No shift of the midline structures, mass effect, or extra-axial abnormalities are shown. Atherosclerotic calcifications are present in the intracranial segments of the internal carotid arteries. Imaged portions of the paranasal sinuses and mastoid air cells are clear. The orbits appear normal. There are no acute fractures of the calvaria or scalp swelling. Impression: No acute intracranial hemorrhage, no evidence of acute territorial infarction or other acute intracranial disease process. ACT 112: Negative or not required by law. Electronically signed by: Darinel Girard M.D. 08/13/2023 4:02 PM Discharge Plan Visit Data Chief Complaint: Weakness ED Provider: Sandra Carnes Discharge Problem: Generalized weakness, Acute kidney injury superimposed on chronic kidney disease, Non-ST elevation [place] (NSTEMI), Acute hyperkalemia, Dyspnea on exertion, Elevated lipase, Transaminitis, Elevated brain natriuretic peptide (BNP) level, Acute exacerbation of CHF (congestive heart failure) Forms Stand Alone Forms: [employer] Prescriptions Prescriptions: No Action Eliquis 2.5 mg tablet 2.5 mg PO BID Qty: 180 3RF doxepin 10 mg capsule 10 mg PO HS PRN (Reason: insomnia) Qty: 30 0RF Metamucil 3.4 gram/5.4 gram powder 1 tsp PO DAILY Rx Instructions: mix into at least 8 oz of water or juice before administering levothyroxine [Euthyrox] 50 mcg tablet 50 mcg PO QAM Qty: 90 3RF mecobalamin (vitamin B12) 5,000 mcg tablet,disintegrating 2,500 mcg PO Q OTHER DAY Qty: 1 0RF Ocuvite Lutein and Zeaxanthin 60 mg-13.5 mg- 15 mg-2 mg-6 mg capsule 1 cap PO QAM clonazepam 0.5 mg tablet 0.5 mg PO .QHS PRN (Reason: insomnia) Qty: 30 0RF Rx Instructions: Supervising physician Raffi Coleman [facility] [id number] ropinirole 0.25 mg tablet 0.25 mg PO DAILY Qty: 60 1RF Rx Instructions: Take 1 tab daily x 1 wk, then if tolerating increase to 0.5 mg daily buspirone 5 mg tablet 5 mg PO HS PRN Patient Comments: pt continues to take as needed at hs, he is unsure why this on the discontinued list. he reports taking buspirone with ropinirole for restless legs as needed at bedtime. docusate sodium 100 mg capsule 200 mg PO HS Patient Comments: since starting flecainide, he has been having issues with hard stools flecainide 50 mg tablet 50 mg PO Q12H Qty: 60 2RF atorvastatin 20 mg tablet 10 mg PO QAM Rx Instructions: 20 mg PO 1/2 tablet at bedtime metoprolol succinate 50 mg tablet extended release 24 hr 75 mg PO QAM Referrals Referrals: Raffi Alva MD [Primary Care Provider] -
[2023-08-13 14:09] LABS: Basophils # (auto) 0.04 K/uL (0.00-0.20); Basophils % (auto) 0.4 %; Eosinophils # (auto) 0.05 K/uL (0.00-0.50); Eosinophils % (auto) 0.5 %; Hematocrit (blood only) 36.1 % (42.0-52.0); Hemoglobin 11.9 g/dl (14.0-18.0); Immature Granulocytes # (auto) 0.12 K/uL (0.01-0.20); Immature Granulocytes % (auto) 1.1 %; Lymphocytes # (auto) 1.72 K/uL (1.20-3.40); Lymphocytes % (auto) 16.3 %; Mean Corpuscular Hemoglobin 31.3 pg (25.0-34.0); Mean Platelet Volume 11.6 fL (9.4-12.4); Monocytes # (auto) 0.98 K/uL (0.11-0.59); Monocytes % (auto) 9.3 %; Neutrophils # (auto) 7.67 K/uL (1.40-6.50); Neutrophils % (auto) 72.4 %; Platelet Count 72 K/uL (130-400); RDW Coefficient of Variation 15.6 % (11.5-14.5); RDW Standard Deviation 53.7 fL (36.4-46.3); White Blood Count 10.58 K/ul (4.8-10.8)
[2023-08-13 14:22] LABS: Albumin Globulin Ratio 1.7 (0.9-2); Albumin Level 4.2 gm/dl (3.4-5.0); BUN Creatinine Ratio 19.7 (10-20); Bilirubin,Total 2.2 mg/dl (0.2-1.0); Calcium 9.2 mg/dl (8.6-10.3); Creatinine Clr Calc Pharmacy 23.5 ml/min; Est GFR (African American) 27.2 ml/min; Est GFR (Non-African American) 23.5 ml/min; Globulin 2.5 gm/dl (2.5-4.0); Magnesium 2.3 mg/dl (1.7-2.4); Potassium 6.5 mmol/L (3.5-5.1); Total Protein 6.7 gm/dl (6.0-8.3)
[2023-08-13 14:23] LABS: Troponin I High Sensitivity 135.6 pg/ml (0-20)
[2023-08-13 14:42] LABS: INR 1.3 (0.9-1.1); Prothrombin Time 14.2 Seconds (9.0-12.0)
[2023-08-13] MEDS: SODIUM CHLORIDE 0.9% 1,000 ML IV ONE (14:42)
[2023-08-13] MEDS: DEXTROSE 50% 50 ML SYRINGE IV STA (14:42)
[2023-08-13] MEDS: CALCIUM GLUCONATE 1,000 MG/60 ML BAG IV STA (14:42)
[2023-08-13] MEDS: NovoLIN-R INSULIN PER UNIT CHARGE IV STA (14:43)
--- NOTE | 2023-08-13 14:48 | XRay Report ---
XR chest 1V portable CLINICAL HISTORY: shortness of breath TECHNIQUE: Single frontal radiograph of the chest was obtained. Comparison: Comparison is made to chest radiograph 08/09/2023 FINDINGS: No lines and tubes are seen. The cardiomediastinal silhouette is normal. The lungs are clear. No evid ence of pleural effusion or pneumothorax. IMPRESSION: No acute abnormalities and in particular no radiographic evidence of pneumonia. ACT 112: Negative or not required by law. Electronically signed by: Darinel Girard M.D. 08/13/2023 2:46 PM
--- NOTE | 2023-08-13 15:03 | History & Physical Report ---
Date of Service August 13, 2023 Assessment & Plan (1) Acute kidney injury superimposed on chronic kidney disease: Plan: -Admit to med/tele -Currently stable and non-toxic appearing -Found to have a cr of 2.38 today, baseline is near 1.5 -Patient was also noted to have an APPLE on last admission after his left heart catheterization >At that time it was unknown if his APPLE was due to contrast from his procedure or pre-renal in nature -Patient reports good oral intake recently, is not on diuretics, does not appear to be taking nephrotoxic medications -Ct of the abd/pelvis last admission noted a punctate stone in the right kidney, patient denies recent flank or abdominal pain -He does have a hx of DMII, not currently on medical management >Last Hgb A1c on 06/23/23 was 6.9, his DM II could be playing a role -Currently receiving 1L NSS ordered in the ED -We will obtain the following for ongoing workup: >UA with reflex culture if needed >Urine Protein:Cr ratio >Bladder scan post void to monitor for urinary retention -Will consider renal US if initial workup necessitates -Avoid nephrotoxic agents -Monitor intake/output, daily weight, daily renal function/electrolytes -If his renal function continues to decline consider Nephrology consult -Continue home Elquis for DVT PPX, is currently on 2.5 BID dosing which is safe for his current renal function -HH/DMII/low potassium diet with 1800 mL fluid restrictions (2) Dyspnea on exertion: Plan: -Patient has noted ongoing/progressive NAJERA -Denies symptoms at rest -Has been stable on RA with sinus bradycardia since arrival to the ED -Underwent left heart cath on last admission which was negative for obstructive coronary disease and with a preserved LVEF -Lungs are clear on exam -Was offered a Pulmonology consult last admission but patient preferred outpatient referral -With his progressive NAJERA and ongoing muscle weakness we will continue with the following workup at this time: >ESR, CRP, CK, -Could consider CT of the chest for further evaluation prior to discharge -Conitnue to monitor on tele (3) Hyperkalemia: Plan: -Noted to be 6.5 in the ED -Is not on Potassium supplementation at home -His APPLE is likely contributing -He has also been eating Papaya daily to try and increase his fiber intake, on review, Papaya is a fruit which is high in potassium -S/P calcium gluconate, IV insulin, dextrose, and currently receiving 1L NSS from the ED -We will start Lokelma with a dose now, continue TID for the next 48 hours -Will monitor repeat potassium ordered on admission and continue to monitor q4h until stable -Would instruct him to limit his intake of foods high in potassium until his renal function improves -Continue to monitor on tele (4) Hyponatremia: Plan: -Noted to be 128 today -Patient does appear edematous in the BL LE's and was noted to have body wall edema on the CT abd/pelvis on last admission -Patient has been trying to increase his intake of water due to chronic constipation -Is not on diuretics -Will obtain serum osmolality, UA with urine osmolality and urine sodium for further evaluation -Will keep him on a free water restriction until workupp is back -Will continue his 1L NSS running in the ED for now -Will repeat his sodium level later this evening -Monitor q4h BMP until renal function and electrolytes are stable (5) Weakness: Plan: -Patient has noticed progressive weakness over the past 1-2 weeks -States it seems most severe in the shoulders and proximal LE muscles -Has been having to crawl up his house interior steps to get to the second floor and has to stop multiple times due to weakness and SOB -CT of the head/brain wo con is negative for acute findings -Could be due to an undiagnosed neurologic disease, could also be partly due to his APPLE on CKD -His hyperkalemia and hyponatremia could be associated with adrenal insufficiency, but he has not been hypoglycemic or hypotensive >Will obtain am Cortisol level -Will obtain ESR, CRP, CK for further evaluation -Will consider Neurology consult if needed -Fall/aspiration precautions -PT/OT consults placed (6) Elevated troponin: Plan: -Initial high sen trop is elevated at 135 -Patient denies symptoms at rest but continues to experience significant NAJERA -Had a left heart cath last admission without obstructive coronary disease and with LVEF -BNP today is 717, no previous to compare -He does have T-wave inversions in the anterior leads on ECG today compared to last admission -Likely due to demand and possibly falsely elevated due to current APPLE -Will continue to monitor on tele -Repeat 2 hour high sen trop is in process -Will continue to trend high sen trop until it reaches a plateau -Will consider repeat Echo and cardiology consult if workup necessitates (7) Thrombocytopenia: Plan: -Noted on last admission as well -Platelets have improved from 55k on 08/03 to 72k today -Has some mild oozing at his left UE laceration site but is otherwise without signs of acute bleeding -Continue to monitor daily CBC (8) Elevated LFTs: Plan: -AST (81) and ALT (62) mildly elevated -No recent alcohol use, CT of the abd/pelvis wo con was negative for liver abnormalities last admission -Likely due to congestion from volume overload -Monitor daily LFT's for now and avoid nehprotoxic agents (9) Type 2 diabetes mellitus: Plan: -Monitor BSG ACHS, goal is 110-160 -Last Hgb A1c last month was 6.9 -Not on medical management at home -Start a CF of 50 ACHS for now -Hold CF and basal insulin to avoid hypoglycemia with his APPLE (10) Hypertension: Plan: -Stable -Continue to monitor (11) Paroxysmal A-fib: Plan: -Currently in sinus bradycardia today -Continue metoprolol and Eliquis Plan The patient was discussed with Dr. 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 Vitals remained stable in the ED. Labs were significant for an improving thrombocytopenia of 72. cr of 2.38 (baseline is near 1.5), BUN of 47, potassium of 6.5, sodium of 128, total bili of 2.2, AST of 81, ALT of 62, initial high sen trop of 135, lipase of 172, and covid 19 screen negative. Chest xray was read as "No acute abnormalities and in particular no radiographic evidence of pneumonia.". Prior to admission the patient was given 1gm IV calcium gluconate, 5 units IV Insulin, 50 mL dextrose, and 1L NSS. The patient was recently admitted to [facility] from 08/03/23-08/04/23 after he initially presented for scheduled cardioversion for afib but Cardiology had concerns for unstable angina. During his admission he underwent left heart catheterization which did not show any occlusive coronary disease and normal ejection fraction. He was noted to be thrombocytopenic with a platelet count of 62 K. Lyme, anaplasmosis, and babesiosis screening was negative. Ct of the abd/pelvis wo con showed unremarkable liver and spleen. The Hospital medicine team spoke with [facility] who was comfortable with the workup and would follow him after discharge. He was noted to have an APPLE, differential included dehydration vs contrast induced due to heart cath. He was instructed to increased his PO fluid intake and creatinine improved slightly at the time of discharge. At the time of the of the exam the patient was sitting in bed in no acute distress. He states that since his discharge on 08/03 he has had progressive NAJERA and increased weakness. He confirms that his SOB is only with exertion and not at rest. He denies recent cough, chest pain, or hemoptysis. Regarding his weakness, he has noticed feeling increasingly weak in the shoulders, quadriceps, hamstrings, and calves. Over the past week he has had incredible difficulty getting up his steps to the second floor of his home. He has recently been having to crawl up the steps and stops frequently to take breaks. He had a fall while walking in his home recently as he was trying to workout on the ground and lost his strength while trying to stand. He sustained a large laceration on the posterior left upper extremity. He also sustained a large hematoma on the left buttocks from his fall which he states has been improving. He went to urgent care where the laceration was closed with steri strips and bandaged. When asked, he feels as though his legs are getting more swollen and he does not think he is urinating as much as he normally does. He has been taking his home medications as prescribed and states that he has been eating papaya and drinking water to deal with chronic constipation. It takes him about a week to eat one whole papaya. He denies recent fever, chills, abd pain, nausea, vomiting, diarrhea, dysuria, hematuria, melena. He is a full code. Please refer to Dr. Quigley's attestation for any changes to the treatment plan Allergies Allergy/AdvReac Type Severity Reaction Status Date / Time Sulfa (Sulfonamide Allergy Intermediate HIVES Verified 08/13/23 16:50 Antibiotics) Home Medications Medication Instructions Recorded Confirmed Type vit C,P-Vk-fubpui-lutein-zeaxan 60 1 cap PO QAM 01/03/19 08/13/23 History mg-13.5 mg-15 mg-2 mg-6 mg capsule (Ocuvite Lutein and Zeaxanthin) psyllium husk 3.4 gram/5.4 gram 1 tsp PO DAILY 10/22/21 08/13/23 History oral powder (Metamucil) apixaban 2.5 mg tablet (Eliquis) 2.5 mg PO BID #180 tabs 12/12/22 08/13/23 Rx mecobalamin (vitamin B12) 5,000 2,500 mcg (1/2 x 5,000 mcg) PO Q 03/29/23 08/13/23 Rx mcg disintegrating tablet OTHER DAY #1 tab atorvastatin 20 mg tablet 10 mg PO QAM 07/13/23 08/13/23 History flecainide 50 mg tablet 50 mg PO Q12H #60 tabs 07/27/23 08/13/23 Rx buspirone 5 mg tablet 5 mg PO HS PRN Anxiety 08/07/23 08/13/23 History docusate sodium 100 mg capsule 200 mg PO HS Constipation 08/07/23 08/13/23 History ropinirole 0.25 mg tablet 0.25 mg PO HS PRN Restless Leg(S) 08/13/23 08/13/23 History levothyroxine 75 mcg capsule 75 mcg PO QAM #30 caps 08/17/23 Rx metoprolol succinate 25 mg 25 mg PO QAM #30 tabs 08/17/23 Rx tablet,extended release 24 hr Past Med/Surg History Medical History (Updated 08/14/23 @ 20:09 by Rosamaria Davila MD) Hypothyroidism Right heart failure History of cardioversion 07/18/23, [facility] Anticoagulant long-term use eliquis History of anesthesia reaction reports constipation, sleep disturbances and vission changes x 1 year following removal of loose body LLE 2000 History of gout Pancreatic cyst Constipation IBS (irritable bowel syndrome) DM type 2 (diabetes mellitus, type 2) diet controlled, no meds HLD (hyperlipidemia) Atrial flutter hx of Hypertension Chronic kidney disease, stage III (moderate) follows with Dr. 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 Monae--on BB and ousmane Benign essential hypertension Surgical History History of lymph node excision 01/2023 off right chest H/O left mastectomy History of surgery removal loose body x 2 LLE History of cataract surgery History of left hip replacement History of right hip replacement History of right mastectomy History of colonoscopy Family History Other No family history of adverse response to anesthesia Denies family history of Ovarian cancer Prostate cancer Breast cancer Lung cancer Colorectal cancer Social History Smoking Status: Never smoker Second Hand Exposure: No; Do You Dip or Chew Tobacco: No; Hx Alcohol Use: Yes Alcohol type: beer and wine Hx Substance Use: No Preferred Language: [place]al[place] Communication Ability: Effective Guest Specialist Required: No Beliefs That Will Affect Care: None marital status: / Current Living Situation: Alone 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 How many Children do You have Comment: one son Feels Safe at Home: Yes Seatbelt Use: always Sunscreen Use: No Assistive Devices: Glasses Physical Exam Physical Exam: Physical Exam: General: In no acute distress, stated age, chronically ill appearing but non- toxic appearing HEENT: Normocephalic, atraumatic, no scleral icterus, pupils around round, symmetrical, and reactive to light, moist mucus membranes, trachea midline, no thyromegaly Chest/Pulm: No respiratory distress, symmetrical chest expansion, clear breath sounds throughout Cardiac: RRR, no murmurs noted Abdomen: Negative for ascites and bruising, normoactive bowel sounds, soft, non-tender to palpation throughout Musculoskeletal: Symmetrical and without signs of acute trauma, upper and lower extremities with symmetric ROM, no atrophy, spasticity, or flaccidity Extremities: Radial, dorsalis pedis, and posterior tibial pulses are intact and symmetrical, 1-2+ pitting edema noted in the BL LE's Skin: Patient with an approximately 4 cm vertical laceration on the left posterior arm currently with a small amount of oozing blood, no signs of acute infection, bruising in multiple stages of healing just proximal to the left UE laceration, patient with an approximately 5 cm x 5 cm hematoma on the left buttocks which is in various stages of healing, otherwise no other signs of acute trauma Neuro: Alert and oriented to person, place, month, year, and president, no focal defects, CN II-XII tested and intact, symmetrical strength in the BL upper extremities, symmetrical 3/5 strength in the BL LE's with flexion of the BL hips Psych: No acute distress, calm and cooperative during the exam Results & Data Results & Data Vital Signs (Past 12 Hours) Vital Signs Temp Pulse Resp BP Pulse Ox O2 Del Method 08/13/23 14:00 54 L 15 126/76 100 Room Air 08/13/23 13:31 56 L 16 135/74 100 Room Air 08/13/23 13:23 36.5 C 55 L 17 122/72 99 Room Air Laboratory Results Abnormal lab results 08/13/23 08/13/23 Range/Units 13:22 15:00 RBC 3.80 L (4.70-6.10) M/uL Hgb 11.9 L (14.0-18.0) g/dl Hct 36.1 L (42.0-52.0) % RDW Std Deviation 53.7 H (36.4-46.3) fL RDW Coeff of Gilbert 15.6 H (11.5-14.5) % Plt Count 72 L (130-400) K/uL Neut # (Auto) 7.67 H (1.40-6.50) K/uL [place] # (Auto) 0.98 H (0.11-0.59) K/uL PT 14.2 H (9.0-12.0) Seconds INR 1.3 H (0.9-1.1) Sodium 128 L (136-145) mmol/L Potassium 6.5 H* (3.5-5.1) mmol/L Chloride 97 L (98-107) mmol/L BUN 47 H (6-23) mg/dl Creatinine 2.38 H (0.6-1.4) mg/dl Glucose 142 H (70-99(Fasting)) mg/dl POC Glucose 212 H (70-99) mg/dl Total Bilirubin 2.2 H (0.2-1.0) mg/dl AST 81 H (13-39) U/L ALT 62 H (7-52) U/L Troponin I High Sens 135.6 H* (0-20) pg/ml B-Natriuretic Peptide 717 H (0-100) pg/ml Lipase 172 H (11-82) U/L Diagnostic Findings Chest X-Ray 08/13/23 13:46 XR chest 1V portable CLINICAL HISTORY: shortness of breath TECHNIQUE: Single frontal radiograph of the chest was obtained. Comparison: Comparison is made to chest radiograph 08/09/2023 FINDINGS: No lines and tubes are seen. The cardiomediastinal silhouette is normal. The lungs are clear. No evidence of pleural effusion or pneumothorax. IMPRESSION: No acute abnormalities and in particular no radiographic evidence of pneumonia. ACT 112: Negative or not required by law. Electronically signed by: Darinel Girard M.D. 08/13/2023 2:46 PM ECG Additional Comments: Sinus bradycardia with short OK Diffuse Nonspecific ST and T wave abnormality Abnormal ECG When compared with ECG of 04-AUG-2023 05:15, [place] interval has decreased T wave inversion now evident in Anterior leads Confirmed by James Amador ([id number]) on 08/13/2023 3:06:47 PM Code Status & VTE Plan Code Status Full code VTE Prophylaxis Plan VTE Prophylaxis will be ordered: Yes Supervising Physician Co-Signing Physician Notes I personally saw and examined the patient. I verified all crouch points and agree with Toñito Wells PA-C with the following exceptions and/or additions: 88 year old male presents to the ER due to shortness of breath and weakness. A/P APPLE / hyperkalemia - PG Care Time/CCT Total # of Minutes Spent Total Time Spent with Patient: Total time spent is greater than 50% in coordination of care (as documented) at patient's floor/unit and/or counseling patient: Coding [place] [address] INT INP/OBS CARE 3/75MIN Patient Type Established Medical Decision Making High Complexity Diagnoses Acute kidney injury superimposed on chronic kidney disease N17.9; N18.9 Dyspnea on exertion R06.09 Hyperkalemia E87.5 Hyponatremia E87.1 Weakness R53.1 Elevated troponin R74.8 Thrombocytopenia D69.6 Elevated LFTs R79.89 Type 2 diabetes mellitus E11.9 Primary hypertension I10 Hypertension type: primary hypertension Paroxysmal A-fib I48.0 (10) Hypertension Hypertension type: primary hypertension Qualified Code(s): I10 - Essential (primary) hypertension
--- NOTE | 2023-08-13 15:07 | Electrocardiogram Report ---
Test Reason : Blood Pressure : / mmHG Vent. Rate : 054 BPM Atrial Rate : 054 BPM P-R Int : 080 ms QRS Dur : 110 ms QT Int : 466 ms P-R-T Axes : -09 -15 099 degrees QTc Int : 441 ms Sinus bradycardia with short [place] Diffuse Nonspecific ST and T wave abnormality Abnormal ECG When compared with ECG of 04-AUG-2023 05:15, [place] interval has decreased T wave inversion now evident in Anterior leads Confirmed by James Amador ([id number]) on 08/13/2023 3:06:47 PM Referred By: REFERRED SELF Confirmed By:James Amador
[2023-08-13] MEDS ORDERED: GLUCOSE 40% GEL 15 GM TUBE PO PRN (15:58)
[2023-08-13] MEDS ORDERED: GLUCOSE 10 TAB/TUBE PO PRN (15:58)
[2023-08-13] MEDS ORDERED: GLUCAGON FOR INJ 1 MG VIAL SQ PRN (15:58)
[2023-08-13] MEDS ORDERED: DEXTROSE 50% 50 ML SYRINGE IV PRN (15:58)
[2023-08-13] MEDS ORDERED: CARBOHYDRATES FOR HYPOGLYCEMIA PO PRN (15:58)
--- NOTE | 2023-08-13 16:04 | CT Scan Report ---
CT head/brain wo con CLINICAL HISTORY: weakness Technique: Contiguous axial CT images of the head were acquired from the base of the skull to the ivana quin without intravenous contrast administration. Images were viewed in brain, subdural and [facility]. Automated dose lowering techniques and/or adjustment according to patient size were utilized for this exam. Comparison: Comparison is made to CT head 09/26/2021 Findings: Areas of decreased attenuation are present in the periventricular and subcortical white matter bilate rally consistent with small vessel ischemic disease. Generalized cerebral atrophy with commensurate e nlargement of the ventricles, sulci, and cisterns is also present. There is no acute intracranial hem orrhage or evidence of acute territorial infarction. No shift of the midline structures, mass effect, or extra-axial abnormalities are shown. Atherosclerotic calcifications are present in the intracran ial segments of the internal carotid arteries. Imaged portions of the paranasal sinuses and mastoid air cells are clear. The orbits appear normal. There are no acute fractures of the calvaria or scalp swelling. Impression: No acute intracranial hemorrhage, no evidence of acute territorial infarction or other acute intracra nial disease process. ACT 112: Negative or not required by law. Electronically signed by: Darinel Girard M.D. 08/13/2023 4:02 PM
[2023-08-13 16:38] LABS: C Reactive Protein 1.55 mg/dl (0-0.5); Magnesium 2.3 mg/dl (1.7-2.4); Phosphorus 3.7 mg/dl (2.5-4.9); Potassium 5.3 mmol/L (3.5-5.1)
[2023-08-13 16:39] LABS: Thyroid Stimulating Hormone 19.093 uIu/ml (0.300-4.500)
[2023-08-13 16:48] LABS: Troponin I High Sensitivity 119.7 pg/ml (0-20)
[2023-08-13 17:20] LABS: T4 Free Thyroxine 1.03 ng/dl (0.61-1.60)
[2023-08-13] MEDS: SODIUM ZIRCONIUM CYCLOSILICATE 10 GM PACKET PO ONE (17:34)
[2023-08-13] MEDS ORDERED: clonazePAM 0.5 MG TAB PO PRN (18:12)
[2023-08-13] MEDS ORDERED: busPIRone 5 MG TAB PO PRN (18:12)
[2023-08-13 18:49] LABS: Appearance Urine Clear (Clear); Bacteria Urine Automated Negative (Negative); Bilirubin Urine Negative (Negative); Blood Urine Negative (Negative); Color Urine Dark Yellow; Glucose Urine UA Negative (Negative); Ketones Urine Negative (Negative); Leukocyte Esterase Urine Negative (Negative); Nitrite Urine Negative (Negative); Protein Urine 1+ (Negative); RBC Urine Automated 0-4 /hpf (0-4); Specific Gravity Urine 1.016 (1.000-1.030); Urobilinogen Urine Negative (Negative)
[2023-08-13 19:09] LABS: Creatinine Urine Random 119.6 mg/dl; Protein Creatinine Ratio Urine 0.7 (0-0.2); Total Protein Urine Random 79.9 mg/dl (0-11.9)
[2023-08-13] MEDS: FLECAINIDE ACETATE 100 MG TABLET PO SCH (19:46)
[2023-08-13] MEDS: INSULIN ASPART PER UNIT CHARGE SC SCH (20:23)
[2023-08-13 21:38] LABS: BUN Creatinine Ratio 20.9 (10-20); Calcium 8.9 mg/dl (8.6-10.3); Est GFR (African American) 27.7 ml/min; Est GFR (Non-African American) 23.9 ml/min; Potassium 5.4 mmol/L (3.5-5.1)
[2023-08-13] MEDS: DOCUSATE SODIUM 100 MG CAP PO SCH (21:55)
[2023-08-13] MEDS: SODIUM ZIRCONIUM CYCLOSILICATE 10 GM PACKET PO SCH (21:56)
[2023-08-13] MEDS: APIXABAN 2.5 MG TAB PO SCH (21:56)
[2023-08-13 23:21] LABS: BUN Creatinine Ratio 21.4 (10-20); Calcium 8.5 mg/dl (8.6-10.3); Creatinine Clr Calc Pharmacy 23.5 ml/min; Est GFR (African American) 27.2 ml/min; Est GFR (Non-African American) 23.5 ml/min; Potassium 5.4 mmol/L (3.5-5.1)
[2023-08-13 23:41] LABS: Troponin I High Sensitivity 135.7 pg/ml (0-20)
[2023-08-14 02:12] LABS: Basophils # (auto) 0.04 K/uL (0.00-0.20); Basophils % (auto) 0.4 %; Eosinophils # (auto) 0.11 K/uL (0.00-0.50); Eosinophils % (auto) 1.2 %; Hematocrit (blood only) 30.2 % (42.0-52.0); Hemoglobin 10.4 g/dl (14.0-18.0); Immature Granulocytes # (auto) 0.07 K/uL (0.01-0.20); Immature Granulocytes % (auto) 0.8 %; Lymphocytes # (auto) 1.45 K/uL (1.20-3.40); Lymphocytes % (auto) 15.6 %; Mean Corpuscular Hemoglobin 31.7 pg (25.0-34.0); Mean Corpuscular Hgb Conc 34.4 g/dL (32.0-36.0); Mean Corpuscular Volume 92.1 fL (80.0-100.0); Monocytes % (auto) 10.8 %; Neutrophils # (auto) 6.63 K/uL (1.40-6.50); Neutrophils % (auto) 71.2 %; Platelet Count 60 K/uL (130-400); RDW Coefficient of Variation 15.5 % (11.5-14.5); RDW Standard Deviation 52.8 fL (36.4-46.3); Red Blood Count 3.28 M/uL (4.70-6.10)
[2023-08-14 02:30] LABS: Albumin Globulin Ratio 1.8 (0.9-2); Albumin Level 3.6 gm/dl (3.4-5.0); BUN Creatinine Ratio 21.3 (10-20); Bilirubin,Total 1.8 mg/dl (0.2-1.0); Calcium 8.5 mg/dl (8.6-10.3); Creatinine Clr Calc Pharmacy 23.4 ml/min; Est GFR (Non-African American) 23.3 ml/min; Magnesium 2.2 mg/dl (1.7-2.4); Potassium 4.9 mmol/L (3.5-5.1); Total Protein 5.6 gm/dl (6.0-8.3)
[2023-08-14 02:40] LABS: Troponin I High Sensitivity 131.8 pg/ml (0-20)
[2023-08-14] MEDS: LEVOTHYROXINE SODIUM 50 MCG TABLET PO SCH (05:41)
[2023-08-14] MEDS: LACTATED RINGER'S 250 ML IV ONE (07:49)
[2023-08-14 08:01] LABS: Calcium 8.2 mg/dl (8.6-10.3); Creatinine Clr Calc Pharmacy 24.4 ml/min; Est GFR (African American) 28.3 ml/min; Est GFR (Non-African American) 24.4 ml/min; Potassium 4.9 mmol/L (3.5-5.1)
[2023-08-14] MEDS: ATORVASTATIN 10 MG TAB PO SCH (08:43)
--- NOTE | 2023-08-14 08:58 | Nephrology Consultation ---
Date of Consultation August 14, 2023 Assessment & Plan (1) Acute kidney injury superimposed on chronic kidney disease: -Non-oliguric -Electrolytes normal -Volume status acceptable -No emergent indication for [employer] -Clinical presentation suggestive of prerenal APPLE presumably due to underlying cardiorenal syndrome associated with paroxysmal atrial fibrillation, history of HFpEF, and findings of chronic right sided CHF -There may be a component of ATN following recent catheterization (creatinine 2.0 mg/dL following the procedure). Clinical presentation is atypical for atheroembolic disease. -Urine microscopy notable for Hyaline casts. Urine is acellular. -FeNa is <1% -Baseline creatinine around 1.7, most recent measurement is 2.30 despite receiving fluid in the ED -Renal US shows mild cortical thickening but no hydronephrosis -Goal is to encourage an event fluid balance -Continue home Eliquis 2.5 bid for DVT prophylaxis -Low potassium diet with 1800 mL fluid restrictions -Document strict I/O's -Repeat metabolic profile tomorrow AM -Medications are appropriately dosed for kidney function (2) Hyperkalemia: -Receiving Lokelma through the end of the day -Maintain dietary K+ restriction -Recheck labs this evening (3) Chronic kidney disease, stage III (moderate): -CKD III b A1 secondary to microvascular disease --Follows with Dr. 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 He was previously admitted to [facility] 08/02-08/03 with concern for unstable angina. Left heart catheterization was performed at that time demonstrating non-occlusive CAD. He was discharged on flecainide and metoprolol for paroxysmal atrial fibrillation. Otherwise, no change in medications. Maxwell has CKD IIIb A1. He follows in the nephrology clinic with Dr. Abrams. Baseline creatinine ~1.7 mg/dL. Urine has been bland and acellular by history. CKD attributed to microvascular disease. Notable calcific vascular disease noted on prior CT of the abdomen. Nephrology consultation was requested for APPLE. Maxwell was seen and evaluated in his hospital room this morning. He reported intermittent episodes of chest heaviness over the past few days, especially with exertion. He mentions that in general he has been feeling weaker and more tired. Activity tolerance is limited. Baseline creatinine is around 1.7 mg/dl, but this has worsened. Most recent creatinine is 2.30 mg/dl.Urinalysis has 1+ protein, hyaline casts 5-10/lpf, epithelial cells 10-20/lpf, and urine protein/creatinine ratio elevated at 0.7. He was hyperkalemic on presentation to the ED (5.4 mmol/L). This responded to treatment with IVF and Lokelma. Last A1C was 6.9 on 06/23/23. Renal US showed moderate bilateral renal cortical thickening but no signs of hydronephrosis or renal calculi. There is a small amount of perihepatic ascites that is comparable to the CT done at his previous admission 08/02. LFTS slightly elevated. Allergies Allergy/AdvReac Type Severity Reaction Status Date / Time Sulfa (Sulfonamide Allergy Intermediate HIVES Verified 08/13/23 16:50 Antibiotics) Home Medications Medication Instructions Recorded Confirmed Type vit C,Y-Lj-pluphc-lutein-zeaxan 60 1 cap PO QAM 01/03/19 08/13/23 History mg-13.5 mg-15 mg-2 mg-6 mg capsule (Ocuvite Lutein and Zeaxanthin) psyllium husk 3.4 gram/5.4 gram 1 tsp PO DAILY 10/22/21 08/13/23 History oral powder (Metamucil) levothyroxine 50 mcg tablet 50 mcg PO QAM #90 tabs 11/09/22 08/13/23 Rx (Euthyrox) apixaban 2.5 mg tablet (Eliquis) 2.5 mg PO BID #180 tabs 12/12/22 08/13/23 Rx mecobalamin (vitamin B12) 5,000 2,500 mcg (1/2 x 5,000 mcg) PO Q 03/29/23 08/13/23 Rx mcg disintegrating tablet OTHER DAY #1 tab atorvastatin 20 mg tablet 10 mg PO QAM 07/13/23 08/13/23 History metoprolol succinate 50 mg 75 mg PO QAM 07/13/23 08/13/23 History tablet,extended release 24 hr flecainide 50 mg tablet 50 mg PO Q12H #60 tabs 07/27/23 08/13/23 Rx buspirone 5 mg tablet 5 mg PO HS PRN Anxiety 08/07/23 08/13/23 History docusate sodium 100 mg capsule 200 mg PO HS Constipation 08/07/23 08/13/23 History doxepin 10 mg capsule 10 mg PO HS PRN insomnia #30 caps 08/08/23 08/13/23 Rx clonazepam 0.5 mg tablet 0.5 mg PO HS PRN insomnia 08/13/23 08/13/23 History ropinirole 0.25 mg tablet 0.25 mg PO HS PRN Restless Leg(S) 08/13/23 08/13/23 History Patient History Medical History History of cardioversion 07/18/23, [facility] Anticoagulant long-term use eliquis Hypothyroidism History of anesthesia reaction reports constipation, sleep disturbances and vission changes x 1 year following removal of loose body LLE 2000 History of gout Pancreatic cyst Constipation IBS (irritable bowel syndrome) DM type 2 (diabetes mellitus, type 2) diet controlled, no meds HLD (hyperlipidemia) Atrial flutter hx of Hypertension Chronic kidney disease, stage III (moderate) follows with Dr. 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 Monae--on BB and eliquis Benign essential hypertension Surgical History History of lymph node excision H/O left mastectomy History of surgery History of cataract surgery History of left hip replacement History of right hip replacement History of right mastectomy History of colonoscopy Family History Other No family history of adverse response to anesthesia Denies family history of Ovarian cancer Prostate cancer Breast cancer Lung cancer Colorectal cancer Social History Smoking Status: Never smoker Second Hand Exposure: No; Do You Dip or Chew Tobacco: No; Tobacco Cessation Education Requested by Patient: No Hx Alcohol Use: Yes Alcohol type: beer and wine Hx Substance Use: No Preferred Language: Bhutanese Communication Ability: Effective Superintendent Cemetery Required: No Beliefs That Will Affect Care: None marital status: / Current Living Situation: Alone 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 Physical Exam Constitutional: WD/WN, vitals as above well developed, + thin and + frail appearing; no acute distress Eyes: no scleral abnormality and no corneal abnormality ENMT: Mouth: no oral mucosal abnormality and oral mucous membranes not dry Neck: normal visual inspection and trachea midline Respiratory: normal respiratory effort Auscultation: + rales (basilar) Cardiovascular: Rate/Rhythm: + bradycardic Heart Sounds: normal S1 and normal S2 Vessels: + JVD Extremities: + pedal edema tachycardic Musculoskeletal: Extremities: no cyanosis and no clubbing Skin: normal turgor; no lesions Neurologic: Motor/Sensory: no tremor and no asterixis Psychiatric: Orientation: alert and oriented x 3 Results & Data Vital Signs (Past 12 Hours) Vital Signs Temp Pulse Pulse Resp BP Pulse Ox O2 Del Method 08/14/23 07:37 36.6 C 55 L 20 88/45 L 94 Room Air 08/14/23 07:12 58 L 08/14/23 04:11 61 18 110/73 96 Room Air 08/14/23 03:33 36.5 C 56 L 18 86/53 L 96 Room Air 08/14/23 00:49 55 L 08/13/23 23:15 36.6 C 53 L 18 109/65 98 Room Air 08/13/23 22:04 46 L 08/13/23 21:03 50 L Laboratory Results Laboratory Results - last 24 hr 08/13/23 08/13/23 08/13/23 13:22 13:54 15:00 WBC 10.58 RBC 3.80 L Hgb 11.9 L Hct 36.1 L MCV 95.0 MCH 31.3 MCHC 33.0 RDW Std Deviation 53.7 H RDW Coeff of Gilbert 15.6 H Plt Count 72 L MPV 11.6 Immature Gran % (Auto) 1.1 Neut % (Auto) 72.4 Lymph % (Auto) 16.3 Osborne % (Auto) 9.3 Eos % (Auto) 0.5 Baso % (Auto) 0.4 Neut # (Auto) 7.67 H Lymph # (Auto) 1.72 Osborne # (Auto) 0.98 H Eos # (Auto) 0.05 Baso # (Auto) 0.04 Immature Gran # (Auto) 0.12 ESR PT 14.2 H INR 1.3 H Sodium 128 L Potassium 6.5 H* Chloride 97 L Carbon Dioxide 22 Anion Gap 9 BUN 47 H Creatinine 2.38 H Est Cr Clr Drug Dosing 23.5 Est GFR ( Amer) 27.2 Est GFR (Non-Af Amer) 23.5 BUN/Creatinine Ratio 19.7 Glucose 142 H POC Glucose 212 H Osmolality 291 Calcium 9.2 Phosphorus Magnesium 2.3 Total Bilirubin 2.2 H AST 81 H ALT 62 H Alkaline Phosphatase 81 Total Creatine Kinase 112 Troponin I High Sens 135.6 H* C-Reactive Protein B-Natriuretic Peptide 717 H Total Protein 6.7 Albumin 4.2 Globulin 2.5 Albumin/Globulin Ratio 1.7 Lipase 172 H TSH 19.093 H Free T4 1.03 Cortisol AM Sample Urine Color Urine Appearance Urine pH Ur Specific [place] Urine Protein Urine Glucose (UA) Urine Ketones Urine Blood Urine Nitrite Urine Bilirubin Urine Urobilinogen Ur Leukocyte Esterase Urine WBC (Auto) Urine RBC (Auto) U Hyaline Cast (Auto) U Epithel Cells (Auto) Urine Bacteria (Auto) Urine Osmolality Ur Random Creatinine U Random Total Protein Ur Random Sodium Protein/Creatinin Ratio SARS-CoV-2 (PCR) NEGATIVE 08/13/23 08/13/23 08/13/23 16:10 18:29 19:57 WBC RBC Hgb Hct MCV MCH MCHC RDW Std Deviation RDW Coeff of Gilbert Plt Count MPV Immature Gran % (Auto) Neut % (Auto) Lymph % (Auto) [place] % (Auto) Eos % (Auto) Baso % (Auto) Neut # (Auto) Lymph # (Auto) [place]borne # (Auto) Eos # (Auto) Baso # (Auto) Immature Gran # (Auto) ESR 5 PT INR Sodium Potassium 5.3 H Chloride Carbon Dioxide Anion Gap BUN Creatinine Est Cr Clr Drug Dosing Est GFR ( Amer) Est GFR (Non-Af Amer) BUN/Creatinine Ratio Glucose POC Glucose 108 H Osmolality Calcium Phosphorus 3.7 Magnesium 2.3 Total Bilirubin AST ALT Alkaline Phosphatase Total Creatine Kinase Troponin I High Sens 119.7 H* C-Reactive Protein 1.55 H B-Natriuretic Peptide Total Protein Albumin Globulin Albumin/Globulin Ratio Lipase TSH Free T4 Cortisol AM Sample Urine Color Dark Yellow Urine Appearance Clear Urine pH 5.0 Ur Specific [place] 1.016 Urine Protein 1+ H Urine Glucose (UA) Negative Urine Ketones Negative Urine Blood Negative Urine Nitrite Negative Urine Bilirubin Negative Urine Urobilinogen Negative Ur Leukocyte Esterase Negative Urine WBC (Auto) 1-5 Urine RBC (Auto) 0-4 U Hyaline Cast (Auto) 5-10 H U Epithel Cells (Auto) 10-20 H Urine Bacteria (Auto) Negative Urine Osmolality 460 L Ur Random Creatinine 119.6 U Random Total Protein 79.9 H Ur Random Sodium 14 Protein/Creatinin Ratio 0.7 H SARS-CoV-2 (PCR) 08/13/23 08/13/23 08/13/23 20:55 21:47 22:50 WBC RBC Hgb Hct MCV MCH MCHC RDW Std Deviation RDW Coeff of [place] Plt Count MPV Immature Gran % (Auto) Neut % (Auto) Lymph % (Auto) [place] % (Auto) Eos % (Auto) Baso % (Auto) Neut # (Auto) Lymph # (Auto) [place] # (Auto) Eos # (Auto) Baso # (Auto) Immature Gran # (Auto) ESR PT INR Sodium 128 L 127 L Potassium 5.4 H 5.4 H Chloride 98 97 L Carbon Dioxide 21 22 Anion Gap 9 8 BUN 49 H 51 H Creatinine 2.34 H 2.38 H Est Cr Clr Drug Dosing 24.0 23.5 Est GFR ( Amer) 27.7 27.2 Est GFR (Non-Af Amer) 23.9 23.5 BUN/Creatinine Ratio 20.9 H 21.4 H Glucose 157 H 151 H POC Glucose 169 H Osmolality Calcium 8.9 8.5 L Phosphorus Magnesium Total Bilirubin AST ALT Alkaline Phosphatase Total Creatine Kinase Troponin I High Sens 135.7 H* C-Reactive Protein B-Natriuretic Peptide Total Protein Albumin Globulin Albumin/Globulin Ratio Lipase TSH Free T4 Cortisol AM Sample Urine Color Urine Appearance Urine pH Ur Specific [place] Urine Protein Urine Glucose (UA) Urine Ketones Urine Blood Urine Nitrite Urine Bilirubin Urine Urobilinogen Ur Leukocyte Esterase Urine WBC (Auto) Urine RBC (Auto) U Hyaline Cast (Auto) U Epithel Cells (Auto) Urine Bacteria (Auto) Urine Osmolality Ur Random Creatinine U Random Total Protein Ur Random Sodium Protein/Creatinin Ratio SARS-CoV-2 (PCR) 08/14/23 08/14/23 08/14/23 01:57 07:14 07:45 WBC 9.30 RBC 3.28 L Hgb 10.4 L Hct 30.2 L MCV 92.1 MCH 31.7 MCHC 34.4 RDW Std Deviation 52.8 H RDW Coeff of Gilbert 15.5 H Plt Count 60 L MPV 10.0 Immature Gran % (Auto) 0.8 Neut % (Auto) 71.2 Lymph % (Auto) 15.6 [place] % (Auto) 10.8 Eos % (Auto) 1.2 Baso % (Auto) 0.4 Neut # (Auto) 6.63 H Lymph # (Auto) 1.45 [place] # (Auto) 1.00 H Eos # (Auto) 0.11 Baso # (Auto) 0.04 Immature Gran # (Auto) 0.07 ESR PT INR Sodium 129 L 129 L Potassium 4.9 4.9 Chloride 99 100 Carbon Dioxide 23 22 Anion Gap 7 7 BUN 51 H 46 H Creatinine 2.39 H 2.30 H Est Cr Clr Drug Dosing 23.4 24.4 Est GFR ( Amer) 27.0 28.3 Est GFR (Non-Af Amer) 23.3 24.4 BUN/Creatinine Ratio 21.3 H 20.0 Glucose 99 83 POC Glucose Osmolality Calcium 8.5 L 8.2 L Phosphorus Magnesium 2.2 Total Bilirubin 1.8 H AST 65 H ALT 53 H Alkaline Phosphatase 70 Total Creatine Kinase Troponin I High Sens 131.8 H* 126.4 H* C-Reactive Protein B-Natriuretic Peptide Total Protein 5.6 L Albumin 3.6 Globulin 2.0 L Albumin/Globulin Ratio 1.8 Lipase TSH Free T4 Cortisol AM Sample 14.97 Urine Color Urine Appearance Urine pH Ur Specific [place] Urine Protein Urine Glucose (UA) Urine Ketones Urine Blood Urine Nitrite Urine Bilirubin Urine Urobilinogen Ur Leukocyte Esterase Urine WBC (Auto) Urine RBC (Auto) U Hyaline Cast (Auto) U Epithel Cells (Auto) Urine Bacteria (Auto) Urine Osmolality Ur Random Creatinine U Random Total Protein Ur Random Sodium Protein/Creatinin Ratio SARS-CoV-2 (PCR) Diagnostic Findings RENAL ULTRASOUND CLINICAL HISTORY: Acute kidney injury. COMPARISON STUDY: Renal ultrasound May 31, 2023. CT of the abdomen and pelvis August 03, 2023. TECHNIQUE: Sonography of the kidneys and the urinary bladder was performed. FINDINGS: Right kidney measures 9.9 cm in maximal dimension and the left measures 9.2 cm. No renal calculi are present. There is no hydronephrosis. Incidental note is made of bilateral renal parapelvic cysts. A small amount of perihepatic ascites is similar to CT of August 03, 2023. No renal masses are identified. There is moderate bilateral renal cortical thinning. Both ureteral jets were identified. IMPRESSION: 1. No hydronephrosis. No renal calculi. 2. Moderate bilateral renal cortical thinning. ECG Additional Comments: Sinus bradycardia with short IN Diffuse Nonspecific ST and T wave abnormality Abnormal ECG When compared with ECG of 04-AUG-2023 05:15, IN interval has decreased T wave inversion now evident in Anterior leads Coding Level of Care Code 57676 IN/OBS CONSULT LVL 4,60M Diagnoses Acute kidney injury superimposed on chronic kidney disease N17.9; N18.9 Hyperkalemia E87.5 Chronic kidney disease, stage III (moderate) N18.30
[2023-08-14] MEDS ORDERED: METOPROLOL SUCC 25MG EXT REL TAB PO SCH (09:00)
--- NOTE | 2023-08-14 10:00 | Ultrasound Report ---
RENAL ULTRASOUND CLINICAL HISTORY: Acute kidney injury. COMPARISON STUDY: Renal ultrasound May 31, 2023. CT of the abdomen and pelvis August 03, 2023. TECHNIQUE: Sonography of the kidneys and the urinary bladder was performed. FINDINGS: Right kidney measures 9.9 cm in maximal dimension and the left measures 9.2 cm. No renal ca lculi are present. There is no hydronephrosis. Incidental note is made of bilateral renal parapelvic cysts. A small amount of perihepatic ascites is similar to CT of August 03, 2023. No renal masses are identified. There is moderate bilateral renal cortical thinning. Both ureteral jets were identified. IMPRESSION: 1. No hydronephrosis. No renal calculi. 2. Moderate bilateral renal cortical thinning. ACT 112: Negative or not required by law. Electronically signed by: Elmer Galan M.D. 08/14/2023 9:59 AM
[2023-08-14] MEDS: METOPROLOL SUCC 25MG EXT REL TAB PO SCH (10:22)
[2023-08-14 11:50] LABS: BUN Creatinine Ratio 21.6 (10-20); Calcium 8.6 mg/dl (8.6-10.3); Creatinine Clr Calc Pharmacy 25.2 ml/min; Est GFR (African American) 29.6 ml/min; Est GFR (Non-African American) 25.5 ml/min; Potassium 4.9 mmol/L (3.5-5.1)
[2023-08-14 15:28] LABS: BUN Creatinine Ratio 20.2 (10-20); Calcium 8.3 mg/dl (8.6-10.3); Creatinine Clr Calc Pharmacy 22.2 ml/min; Est GFR (African American) 25.4 ml/min; Est GFR (Non-African American) 21.9 ml/min; Potassium 4.6 mmol/L (3.5-5.1)
--- NOTE | 2023-08-14 17:40 | Hospitalist Progress Note ---
Date of Service August 14, 2023 Assessment & Plan (1) Acute kidney injury superimposed on chronic kidney disease: Plan: Secondary to cardiorenal syndrome Creatinine 2.38 on admission, baseline is near 1.5 Patient was also noted to have an APPLE on last admission after his left heart catheterization and at that time it was unknown if his APPLE was due to contrast from his procedure or pre-renal in nature Patient reports good p.o. intake recently, is not on diuretics, does not appear to be taking nephrotoxic medications Ct of the abd/pelvis last admission noted a punctate stone in the right kidney, patient denies recent flank or abdominal pain Renal ultrasound here negative for obstruction and he is making urine UA shows hyaline casts, 1+ protein, no evidence of infection Creatinine not much improved today at 2.3-2.5 after receiving IV fluids. With associated hyponatremia and hyperkalemia on admission which is now improving With some borderline hypotension-gave 250 mL of LR bolused. He does have peripheral edema and right-sided heart failure FeNa calculated at 0.2% indicating prerenal but could also be contrast-induced nephropathy Consult nephrology appreciated Follow BMP (2) Dyspnea on exertion: Plan: With ongoing/progressive NAJERA over the last few weeks, thought to be related to paroxysmal A-fib, or angina. Had cardiac catheterization on 08/03 which showed normal coronary arteries but with elevated right-sided filling pressures and severe TR, normal pulmonary artery pressures and normal cardiac output, low left-sided filling pressures. His A-fib also converted to sinus rhythm and he remains in a sinus rhythm here on flecainide and metoprolol Was offered a Pulmonology consult last admission but patient preferred outpatient referral. He is not hypoxic and chest x-ray is clear. Troponin here mildly elevated but stable on several occasions at 135/131/126, not consistent with acute coronary syndrome Possibly related to severe TR? Needs follow-up with cardiology, consider inpatient consultation (3) Right heart failure: Plan: As above, no known chronic lung issues Check overnight pulse oximetry (4) Hyperkalemia: Plan: Potassium was 6.5 on arrival, secondary to acute kidney injury and high potassium diet at home He is now S/P calcium gluconate, IV insulin, dextrose, and IV fluids, Lokelma to be continued through 6 doses Low potassium diet Potassium is now normal Follow BMP (5) Hypothyroidism: Plan: TSH quite elevated at 19, likely poor gut absorption due to right-sided heart failure and edema Give IV levothyroxine for a couple of doses and then increase levothyroxine dose to 75 mcg daily (6) Hyponatremia: Plan: Sodium 128 on arrival and improved to 129, secondary to renal failure, volume overload giving peripheral edema and body wall edema Urine sodium low at 14, urine osmolality elevated at 460 consistent with hypervolemia with intravascular volume depletion TSH quite elevated at 19, likely from poor absorption due to gut wall edema. A.m. cortisol normal Consider IV diuretics if urine output goes down as per nephrology Follow BMP (7) Weakness: Plan: Patient has noticed progressive weakness over the past 1-2 weeks-has been having to crawl up his house interior steps to get to the second floor and has to stop multiple times due to weakness and SOB CT of the head/brain wo con is negative for acute findings ESR, CRP, CK all normal With left knee effusion and ecchymosis from crawling but no pain or evidence of infection Likely due to renal failure and heart failure (8) Elevated troponin: Plan: Troponin elevated as above, secondary to renal failure and myocardial demand ischemia in the setting of heart failure No chest pain and recent left heart cath as above with normal coronary arteries ECG with T-wave inversions in the anterior leads new compared to last admission but serial troponin did not trend upward (9) Thrombocytopenia: Plan: Noted on last admission as well-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 given elevated LFTs as well Treat heart failure Check B12 level in the morning (10) Elevated LFTs: Plan: Mild elevation and now improving, likely from right-sided heart failure and hepatic congestion No recent alcohol use, CT of the abd/pelvis wo con was negative for liver abnormalities last admission (11) Hypertension: Plan: Blood pressures are low here, gave small fluid bolus Reduce metoprolol to 25 mg daily for now (12) Paroxysmal A-fib: Plan: Remains in sinus bradycardia on telemetry Continue flecainide Continue metoprolol at a lower dose of 25 mg daily due to bradycardia and hypotension Continue Eliquis, renal dosing Monitor on telemetry (13) Type 2 diabetes mellitus: Plan: Last Hgb A1c last month was 6.9, not on medical management at home Continue NovoLog as needed Plan DVT prophylaxis-Eliquis Disposition-continued stay on telemetry, PT/OT consulted and may need rehab Admission and Anticipated Discharge Date Admission Date: August 13, 2023 Subjective Patient feels he is getting stronger today, less dyspneic on exertion. He is making urine today but not much each time. He is eating and drinking, felt constipated earlier and requested a laxative. He denies any pain in his knee but it is quite swollen Telemetry with sinus rhythm first-degree AV block, rates in the 60s Physical Exam Constitutional: WD/WN, vitals as above Respiratory: normal respiratory effort, lungs clear to auscultation Cardiovascular: Rate/Rhythm: regular rate and regular rhythm Heart Sounds: + murmur (Systolic murmur heard at the left lower sternal border) Extremities: + edema (1-2+ pitting edema legs to the knees bilaterally) Gastrointestinal (Abdomen): normal bowel sounds, soft, nontender, no hepatosplenomegaly Musculoskeletal: Knee: + knee abnormal to inspection (Left knee with moderate effusion, ecchymosis, no tenderness to palpation) Skin: Trauma: + evidence of skin trauma (Laceration posterior left upper arm) Psychiatric: A+Ox3, euthymic affect Results & Data Results & Data Vital Signs (Past 12 Hours) Vital Signs Temp Pulse Pulse Resp BP Pulse Ox O2 Del Method 08/14/23 15:22 60 08/14/23 15:02 36.5 C 60 20 102/65 100 Room Air 08/14/23 11:37 36.4 C L 62 20 136/77 98 Room Air 08/14/23 10:20 107 H 121/74 08/14/23 07:37 36.6 C 55 L 20 88/45 L 94 Room Air 08/14/23 07:12 58 L Laboratory Results CBC, BMP, LFTs, troponin, a.m. cortisol reviewed Diagnostic Findings Renal Ultrasound 08/14/23 07:33 RENAL ULTRASOUND CLINICAL HISTORY: Acute kidney injury. COMPARISON STUDY: Renal ultrasound May 31, 2023. CT of the abdomen and pelvis August 03, 2023. TECHNIQUE: Sonography of the kidneys and the urinary bladder was performed. FINDINGS: Right kidney measures 9.9 cm in maximal dimension and the left measures 9.2 cm. No renal calculi are present. There is no hydronephrosis. Incidental note is made of bilateral renal parapelvic cysts. A small amount of perihepatic ascites is similar to CT of August 03, 2023. No renal masses are identified. There is moderate bilateral renal cortical thinning. Both ureteral jets were identified. IMPRESSION: 1. No hydronephrosis. No renal calculi. 2. Moderate bilateral renal cortical thinning. ACT 112: Negative or not required by law. Electronically signed by: Elmer Galan M.D. 08/14/2023 9:59 AM PG Care Time/CCT Total # of Minutes Spent Total Time Spent with Patient: Total time spent is greater than 50% in coordination of care (as documented) at patient's floor/unit and/or counseling patient: Coding Level of Care Code 62513 SUB INP/OBS CARE 3/50MIN Diagnoses Acute kidney injury superimposed on chronic kidney disease N17.9; N18.9 Dyspnea on exertion R06.09 Right heart failure I50.810 Hyperkalemia E87.5 Hypothyroidism E03.9 Hyponatremia E87.1 Weakness R53.1 Elevated troponin R74.8 Thrombocytopenia D69.6 Elevated LFTs R79.89 Primary hypertension I10 Hypertension type: primary hypertension Paroxysmal A-fib I48.0 Type 2 diabetes mellitus E11.9 (11) Hypertension Hypertension type: primary hypertension Qualified Code(s): I10 - Essential (primary) hypertension
[2023-08-14] MEDS: SODIUM CHLORIDE 1 GM TABLET PO ONE (17:52)
[2023-08-15 06:07] LABS: Basophils # (auto) 0.03 K/uL (0.00-0.20); Basophils % (auto) 0.4 %; Eosinophils # (auto) 0.12 K/uL (0.00-0.50); Eosinophils % (auto) 1.7 %; Hematocrit (blood only) 28.6 % (42.0-52.0); Hemoglobin 9.6 g/dl (14.0-18.0); Immature Granulocytes # (auto) 0.07 K/uL (0.01-0.20); Lymphocytes # (auto) 1.26 K/uL (1.20-3.40); Lymphocytes % (auto) 18.1 %; Mean Corpuscular Hemoglobin 31.5 pg (25.0-34.0); Mean Corpuscular Hgb Conc 33.6 g/dL (32.0-36.0); Mean Corpuscular Volume 93.8 fL (80.0-100.0); Monocytes # (auto) 0.82 K/uL (0.11-0.59); Monocytes % (auto) 11.7 %; Neutrophils # (auto) 4.68 K/uL (1.40-6.50); Neutrophils % (auto) 67.1 %; Platelet Count 67 K/uL (130-400); RDW Coefficient of Variation 15.5 % (11.5-14.5); RDW Standard Deviation 52.9 fL (36.4-46.3); Red Blood Count 3.05 M/uL (4.70-6.10); White Blood Count 6.98 K/ul (4.8-10.8)
[2023-08-15 06:23] LABS: Albumin Globulin Ratio 1.7 (0.9-2); Albumin Level 3.3 gm/dl (3.4-5.0); BUN Creatinine Ratio 22.9 (10-20); Bilirubin,Total 1.6 mg/dl (0.2-1.0); Creatinine Clr Calc Pharmacy 24.3 ml/min; Est GFR (African American) 28.2 ml/min; Est GFR (Non-African American) 24.3 ml/min; Magnesium 2.1 mg/dl (1.7-2.4); Potassium 4.1 mmol/L (3.5-5.1); Total Protein 5.3 gm/dl (6.0-8.3)
[2023-08-15] MEDS: LEVOTHYROXINE SODIUM 25 MCG in SYRINGE 0 ML IV SCH (09:48)
--- NOTE | 2023-08-15 11:08 | Nephrology Progress Note ---
Date of Service August 15, 2023 Assessment & Plan (1) Acute kidney injury superimposed on chronic kidney disease: Plan: -Non-oliguric -Creatinine stable at 2.3 mg/dL -Electrolytes normal -Volume status acceptable: findings consistent with right sided CHF -No emergent indication for EDITOR MAP -Clinical presentation suggestive of prerenal APPLE presumably due to underlying cardiorenal syndrome associated with paroxysmal atrial fibrillation, history of HFpEF, and findings of chronic right sided CHF -There may be a component of ATN following recent catheterization (creatinine 2.0 mg/dL following the procedure). Clinical presentation is atypical for atheroembolic disease. -Urine microscopy notable for Hyaline casts. Urine is acellular. -FeNa <1% on admission -Updated urine sodium requested this morning following IVF and positive fluid balance -Baseline creatinine around 1.7 -Renal US shows mild cortical thickening but no hydronephrosis -Goal is to encourage an even or slightly negative fluid balance -Low potassium diet with 1200 mL fluid restrictions -Document strict I/O's -Repeat metabolic profile tomorrow AM -Medications are appropriately dosed for kidney function (2) Hyperkalemia: Plan: -Improved -Lokelma stopped -Maintain dietary K+ restriction -Recheck labs tomorrow AM (3) Chronic kidney disease, stage III (moderate): Plan: -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 Abrams (4) Right heart failure: Plan: -TTE with noted RV dilation and severe TR -Close outpatient cardiology follow up will be required (5) Anemia: Plan: -Given underlying CLL, defer management to hematology Plan Admission and Anticipated Discharge Date Admission Date: August 13, 2023 Subjective No acute events overnight. Maxwell was resting comfortably in bed this morning. He denies any interval chest pains or palpitations. He denies lightheadedness or dizziness. He is breathing comfortably at rest. Increased edema in the lower extremities noted. Some mild orthopnea also appreciated. Orthopnea has been somewhat chronic per his report and exacerbated by laying on his left side. Review of Systems Review of Systems: All systems reviewed & are unremarkable except as noted in HPI & below Cardiovascular: + edema Physical Exam Constitutional: WD/WN, vitals as above well developed, + thin and + frail appearing; no acute distress Eyes: no scleral abnormality and no corneal abnormality ENMT: Mouth: no oral mucosal abnormality and oral mucous membranes not dry Neck: normal visual inspection and trachea midline Respiratory: normal respiratory effort Auscultation: + rales (basilar) Cardiovascular: Rate/Rhythm: + bradycardic Heart Sounds: normal S1 and normal S2 Vessels: + JVD Extremities: + edema Musculoskeletal: Extremities: no cyanosis and no clubbing Skin: normal turgor; no lesions Neurologic: Motor/Sensory: no tremor and no asterixis Psychiatric: Orientation: alert and oriented x 3 Results & Data Vital Signs (Past 12 Hours) Vital Signs Temp Pulse Pulse Pulse Resp BP BP 08/15/23 08:20 35.8 C L 60 107/47 L 08/15/23 07:00 59 L 08/15/23 03:30 36.3 C L 60 18 95/57 L 08/15/23 02:35 68 Pulse Ox Pulse Ox O2 Del Method O2 Del Method 08/15/23 08:20 98 Room Air 08/15/23 07:00 08/15/23 03:30 98 Room Air 08/15/23 02:35 98 Room Air Laboratory Results Laboratory Results - last 24 hr 08/14/23 08/14/23 08/14/23 11:20 12:28 14:54 WBC RBC Hgb Hct MCV MCH MCHC RDW Std Deviation RDW Coeff of Gilbert Plt Count MPV Immature Gran % (Auto) Neut % (Auto) Lymph % (Auto) [place] % (Auto) Eos % (Auto) Baso % (Auto) Neut # (Auto) Lymph # (Auto) [place] # (Auto) Eos # (Auto) Baso # (Auto) Immature Gran # (Auto) Sodium 128 L 128 L Potassium 4.9 4.6 Chloride 98 98 Carbon Dioxide 23 22 Anion Gap 7 8 BUN 48 H 51 H Creatinine 2.22 H 2.52 H D Est Cr Clr Drug Dosing 25.2 22.2 Est GFR ( Amer) 29.6 25.4 Est GFR (Non-Af Amer) 25.5 21.9 BUN/Creatinine Ratio 21.6 H 20.2 H Glucose 142 H 182 H POC Glucose 136 H Calcium 8.6 8.3 L Magnesium Total Bilirubin AST ALT Alkaline Phosphatase Total Protein Albumin Globulin Albumin/Globulin Ratio Vitamin B12 08/14/23 08/14/23 08/15/23 17:01 20:22 05:25 WBC 6.98 RBC 3.05 L Hgb 9.6 L Hct 28.6 L MCV 93.8 MCH 31.5 MCHC 33.6 RDW Std Deviation 52.9 H RDW Coeff of Gilbert 15.5 H Plt Count 67 L MPV 11.0 Immature Gran % (Auto) 1.0 Neut % (Auto) 67.1 Lymph % (Auto) 18.1 [place] % (Auto) 11.7 Eos % (Auto) 1.7 Baso % (Auto) 0.4 Neut # (Auto) 4.68 Lymph # (Auto) 1.26 [place] # (Auto) 0.82 H Eos # (Auto) 0.12 Baso # (Auto) 0.03 Immature Gran # (Auto) 0.07 Sodium 131 L Potassium 4.1 Chloride 101 Carbon Dioxide 23 Anion Gap 7 BUN 53 H Creatinine 2.31 H Est Cr Clr Drug Dosing 24.3 Est GFR ( Amer) 28.2 Est GFR (Non-Af Amer) 24.3 BUN/Creatinine Ratio 22.9 H Glucose 117 H POC Glucose 135 H 133 H Calcium 8.0 L Magnesium 2.1 Total Bilirubin 1.6 H AST 51 H ALT 42 Alkaline Phosphatase 63 Total Protein 5.3 L Albumin 3.3 L Globulin 2.0 L Albumin/Globulin Ratio 1.7 Vitamin B12 1448 H 08/15/23 08:07 WBC RBC Hgb Hct MCV MCH MCHC RDW Std Deviation RDW Coeff of Gilbert Plt Count MPV Immature Gran % (Auto) Neut % (Auto) Lymph % (Auto) [place] % (Auto) Eos % (Auto) Baso % (Auto) Neut # (Auto) Lymph # (Auto) [place] # (Auto) Eos # (Auto) Baso # (Auto) Immature Gran # (Auto) Sodium Potassium Chloride Carbon Dioxide Anion Gap BUN Creatinine Est Cr Clr Drug Dosing Est GFR ( Amer) Est GFR (Non-Af Amer) BUN/Creatinine Ratio Glucose POC Glucose 112 H Calcium Magnesium Total Bilirubin AST ALT Alkaline Phosphatase Total Protein Albumin Globulin Albumin/Globulin Ratio Vitamin B12 PG Care Time/CCT Total # of Minutes Spent Total Time Spent with Patient: Total time spent is greater than 50% in coordination of care (as documented) at patient's floor/unit and/or counseling patient: Coding Level of Care Code 10215 SUB INP/OBS CARE 3/50MIN Diagnoses Acute kidney injury superimposed on chronic kidney disease N17.9; N18.9 Hyperkalemia E87.5 Chronic kidney disease, stage III (moderate) N18.30 Right heart failure I50.810 Anemia D64.9
[2023-08-15 11:42] LABS: Potassium Random Urine 14.7 mmol/L
--- NOTE | 2023-08-15 17:08 | Hospitalist Progress Note ---
Date of Service August 15, 2023 Assessment & Plan (1) Acute kidney injury superimposed on chronic kidney disease: Plan: Secondary to cardiorenal syndrome Creatinine 2.38 on admission, baseline is near 1.5 Patient was also noted to have an APPLE on last admission after his left heart catheterization and at that time it was unknown if his APPLE was due to contrast from his procedure or pre-renal in nature Patient reports good p.o. intake recently, is not on diuretics, does not appear to be taking nephrotoxic medications Ct of the abd/pelvis last admission noted a punctate stone in the right kidney, patient denies recent flank or abdominal pain Renal ultrasound here negative for obstruction and he is making urine UA shows hyaline casts, 1+ protein, no evidence of infection Creatinine stable again today at 2.3. He received some gentle IV fluids initially. With associated hyponatremia and hyperkalemia on admission which continues to be improving-sodium up to 131, potassium now normal With some borderline hypotension earlier in stay which resolved with small bolus of LR He does have peripheral edema and right-sided heart failure FeNa calculated at 0.2% indicating prerenal but could also be contrast-induced nephropathy Consult nephrology appreciated Follow BMP (2) Dyspnea on exertion: Plan: With ongoing/progressive NAJERA over the last few weeks, thought to be related to paroxysmal A-fib, or angina. Had cardiac catheterization on 08/03 which showed normal coronary arteries but with elevated right-sided filling pressures and severe TR, normal pulmonary artery pressures and normal cardiac output, low left-sided filling pressures. His A-fib also converted to sinus rhythm and he remains in a sinus rhythm here on flecainide and metoprolol Was offered a Pulmonology consult last admission but patient preferred outpatient referral. He is not hypoxic and chest x-ray is clear. Troponin here mildly elevated but stable on several occasions at 135/131/126, not consistent with acute coronary syndrome Possibly related to severe TR? Needs follow-up with cardiology, consider inpatient consultation although he is now feeling better and able to walk further distances without shortness of breath (3) Right heart failure: Plan: As above, no known chronic lung issues Checked overnight pulse oximetry-normal, no nocturnal hypoxia (4) Hyperkalemia: Plan: Potassium was 6.5 on arrival, secondary to acute kidney injury and high potassium diet at home He is now S/P calcium gluconate, IV insulin, dextrose, and IV fluids, Lokelma x 6 doses Potassium now normal Continue low potassium diet Follow BMP (5) Hypothyroidism: Plan: TSH quite elevated at 19, likely poor gut absorption due to right-sided heart failure and edema Give IV levothyroxine for a couple of doses and then increase levothyroxine dose to 75 mcg daily on 08/16 (6) Hyponatremia: Plan: Sodium 128 on arrival and now improved to 131 This is secondary to renal failure, volume overload giving peripheral edema and body wall edema Urine sodium low at 14, urine osmolality elevated at 460 consistent with hypervolemia with intravascular volume depletion TSH quite elevated at 19, likely from poor absorption due to gut wall edema. A.m. cortisol normal He was given a one-time dose of sodium chloride 1000 mg p.o. by nephrology Consider IV diuretics if urine output goes down as per nephrology Follow BMP (7) Weakness: Plan: Patient has noticed progressive weakness over the past 1-2 weeks-has been having to crawl up his house interior steps to get to the second floor and has to stop multiple times due to weakness and SOB CT of the head/brain wo con is negative for acute findings He was recently prescribed clonazepam 3 weeks ago-unclear how many doses he took but this could certainly contribute to weakness-it is ordered here but he has not taken any-will discontinue Could also be related to heart failure and acute kidney injury ESR, CRP, CK all normal With left knee effusion and ecchymosis from crawling but no pain or evidence of infection With left posterior arm laceration Overall much improved (8) Elevated troponin: Plan: Troponin elevated as above, secondary to renal failure and myocardial demand ischemia in the setting of heart failure No chest pain and recent left heart cath as above with normal coronary arteries ECG with T-wave inversions in the anterior leads new compared to last admission but serial troponin did not trend upward (9) Thrombocytopenia: Plan: Noted on last admission as well-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 given elevated LFTs as well Platelets stable today at 67 B12 level checked and normal (10) Elevated LFTs: Plan: Mild elevation and now continue to be improving, likely from right-sided heart failure and hepatic congestion No recent alcohol use, CT of the abd/pelvis wo con was negative for liver abnormalities last admission (11) Hypertension: Plan: Blood pressures are low here, gave small fluid bolus and now improved Reduced metoprolol to 25 mg daily for now (12) Paroxysmal A-fib: Plan: Remains in sinus bradycardia on telemetry Continue flecainide Continue metoprolol at a lower dose of 25 mg daily due to bradycardia and hypotension Continue Michael, renal dosing Monitor on telemetry (13) Type 2 diabetes mellitus: Plan: Last Hgb A1c last month was 6.9, not on medical management at home Continue NovoLog as needed Plan DVT prophylaxis-Michael Constipation-resume home Metamucil, continue docusate Disposition-continued stay on telemetry, PT/OT consulted but with improvement, may be able to return home instead of rehab Admission and Anticipated Discharge Date Admission Date: August 13, 2023 Subjective Patient wonders if he can have his home Metamucil ordered. He feels his strength is returning and his shortness of breath is less then before and he was able to walk further up and down the halls today and even go up and down stairs today with physical therapy. Telemetry with sinus bradycardia and sinus rhythm with first-degree AV block with rates in the 50s to 60s Physical Exam Constitutional: WD/WN, vitals as above Respiratory: normal respiratory effort, lungs clear to auscultation Cardiovascular: Rate/Rhythm: regular rate and regular rhythm Heart Sounds: + murmur (Systolic murmur heard at the left lower sternal border) Extremities: + edema (2+ pitting edema legs to the knees bilaterally) Gastrointestinal (Abdomen): normal bowel sounds, soft, nontender, no hepatosplenomegaly Musculoskeletal: Knee: + knee abnormal to inspection (Left knee with moderate effusion, ecchymosis, no tenderness to palpation) Skin: Trauma: + evidence of skin trauma (Laceration posterior left upper arm) Also with ecchymosis to the proximal left forearm with edema Psychiatric: A+Ox3, euthymic affect Results & Data Results & Data Vital Signs (Past 12 Hours) Vital Signs Temp Pulse Pulse Resp BP BP Pulse Ox 08/15/23 15:21 36.2 C L 65 20 107/64 99 08/15/23 14:02 08/15/23 13:40 63 08/15/23 11:08 35.8 C L 62 116/74 98 08/15/23 08:20 35.8 C L 60 107/47 L 98 08/15/23 07:00 59 L O2 Del Method 08/15/23 15:21 Room Air 08/15/23 14:02 Room Air 08/15/23 13:40 08/15/23 11:08 Room Air 08/15/23 08:20 Room Air 08/15/23 07:00 Laboratory Results CBC, CMP, B12 reviewed today Diagnostic Findings Overnight pulse oximetry normal PG Care Time/CCT Total # of Minutes Spent Total Time Spent with Patient: Total time spent is greater than 50% in coordination of care (as documented) at patient's floor/unit and/or counseling patient: Coding Level of Care Code 55464 SUB INP/OBS CARE 3/50MIN Diagnoses Acute kidney injury superimposed on chronic kidney disease N17.9; N18.9 Dyspnea on exertion R06.09 Right heart failure I50.810 Hyperkalemia E87.5 Hypothyroidism E03.9 Hyponatremia E87.1 Weakness R53.1 Elevated troponin R74.8 Thrombocytopenia D69.6 Elevated LFTs R79.89 Primary hypertension I10 Hypertension type: primary hypertension Paroxysmal A-fib I48.0 Type 2 diabetes mellitus E11.9 (11) Hypertension Hypertension type: primary hypertension Qualified Code(s): I10 - Essential (primary) hypertension
[2023-08-15] MEDS: PSYLLIUM or GUAR GUM FIBER POWDER PACKET PO SCH (18:00)
[2023-08-15] MEDS: SODIUM CHLORIDE 1 GM TABLET PO ONE (18:00)
[2023-08-16 06:42] LABS: Basophils # (auto) 0.03 K/uL (0.00-0.20); Basophils % (auto) 0.5 %; Eosinophils # (auto) 0.11 K/uL (0.00-0.50); Eosinophils % (auto) 1.7 %; Hematocrit (blood only) 26.7 % (42.0-52.0); Hemoglobin 9.3 g/dl (14.0-18.0); Immature Granulocytes # (auto) 0.07 K/uL (0.01-0.20); Immature Granulocytes % (auto) 1.1 %; Lymphocytes # (auto) 1.19 K/uL (1.20-3.40); Lymphocytes % (auto) 18.1 %; Mean Corpuscular Hemoglobin 31.7 pg (25.0-34.0); Mean Corpuscular Hgb Conc 34.8 g/dL (32.0-36.0); Mean Corpuscular Volume 91.1 fL (80.0-100.0); Mean Platelet Volume 9.7 fL (9.4-12.4); Monocytes # (auto) 0.76 K/uL (0.11-0.59); Monocytes % (auto) 11.6 %; Neutrophils # (auto) 4.42 K/uL (1.40-6.50); Platelet Count 69 K/uL (130-400); RDW Coefficient of Variation 15.4 % (11.5-14.5); RDW Standard Deviation 50.6 fL (36.4-46.3); Red Blood Count 2.93 M/uL (4.70-6.10); White Blood Count 6.58 K/ul (4.8-10.8)
[2023-08-16 06:59] LABS: Albumin Globulin Ratio 1.5 (0.9-2); Albumin Level 3.2 gm/dl (3.4-5.0); BUN Creatinine Ratio 23.4 (10-20); Bilirubin,Total 1.7 mg/dl (0.2-1.0); Creatinine Clr Calc Pharmacy 28.4 ml/min; Est GFR (African American) 34.2 ml/min; Est GFR (Non-African American) 29.5 ml/min; Globulin 2.1 gm/dl (2.5-4.0); Magnesium 2.1 mg/dl (1.7-2.4); Potassium 3.5 mmol/L (3.5-5.1); Total Protein 5.3 gm/dl (6.0-8.3)
[2023-08-16] MEDS: CYANOCOBALAMIN (B-12) 2,500 MCG TABLET PO SCH (08:36)
--- NOTE | 2023-08-16 10:15 | Nephrology Progress Note ---
Date of Service August 16, 2023 Assessment & Plan (1) Acute kidney injury superimposed on chronic kidney disease: Plan: -Creatinine improving -Electrolytes normal -Volume status: evidence of right heart failure and fluid retention -Clinical presentation consistent with hemodynamically mediated prerenal APPLE due to underlying cardiorenal syndrome: paroxysmal atrial fibrillation and findings of chronic right sided CHF -Possible component of ATN following recent catheterization -- presentation not consistent with atheroembolic disease -Urine studies yesterday reassuring -Baseline creatinine around 1.7 -Goal is to encourage an even or slightly negative fluid balance -Low potassium diet with 1200 mL fluid restrictions -Medications are appropriately dosed for kidney function -Check a metabolic profile within 1 week of discharge -Please arrange outpatient follow up with Dr. 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 Abrams (4) Right heart failure: Plan: -TTE with noted RV dilation and severe TR -Cardiology follow up will be required (5) Anemia: Plan: -Given underlying CLL, defer management to hematology Plan Admission and Anticipated Discharge Date Admission Date: August 13, 2023 Subjective No acute events overnight. Maxwell feels well this AM. Activity tolerance improved. Denies chest pains or palpitations. Review of Systems Review of Systems: All systems reviewed & are unremarkable except as noted in HPI & below Physical Exam Constitutional: well developed, + thin and + frail appearing; no acute distress Eyes: no scleral abnormality and no corneal abnormality ENMT: Mouth: no oral mucosal abnormality and oral mucous membranes not dry Neck: normal visual inspection and trachea midline Respiratory: normal respiratory effort Auscultation: + rales (few at right base) Cardiovascular: Rate/Rhythm: regular rate and regular rhythm Heart Sounds: normal S1 and normal S2 Vessels: + JVD Extremities: + edema Musculoskeletal: Extremities: no cyanosis and no clubbing Skin: normal turgor; no lesions Neurologic: Motor/Sensory: no tremor and no asterixis Psychiatric: Orientation: alert and oriented x 3 Results & Data Vital Signs (Past 12 Hours) Vital Signs Temp Pulse Pulse Resp BP BP Pulse Ox 08/16/23 08:34 74 130/77 08/16/23 07:52 36.5 C 64 20 91/48 L 99 08/16/23 07:00 68 08/16/23 02:56 68 16 107/60 96 08/16/23 00:47 67 08/15/23 23:05 36.7 C 67 17 104/57 L 99 08/15/23 22:18 O2 Del Method 08/16/23 08:34 08/16/23 07:52 Room Air 08/16/23 07:00 08/16/23 02:56 Room Air 08/16/23 00:47 08/15/23 23:05 Room Air 08/15/23 22:18 Room Air Laboratory Results Laboratory Results - last 24 hr 08/15/23 08/15/23 08/15/23 11:57 16:53 20:09 WBC RBC Hgb Hct MCV MCH MCHC RDW Std Deviation RDW Coeff of Gilbert Plt Count MPV Immature Gran % (Auto) Neut % (Auto) Lymph % (Auto) [place] % (Auto) Eos % (Auto) Baso % (Auto) Neut # (Auto) Lymph # (Auto) [place] # (Auto) Eos # (Auto) Baso # (Auto) Immature Gran # (Auto) Sodium Potassium Chloride Carbon Dioxide Anion Gap BUN Creatinine Est Cr Clr Drug Dosing Est GFR ( Amer) Est GFR (Non-Af Amer) BUN/Creatinine Ratio Glucose POC Glucose 143 H 145 H 230 H Calcium Magnesium Total Bilirubin AST ALT Alkaline Phosphatase Total Protein Albumin Globulin Albumin/Globulin Ratio Ur Random Creatinine Ur Random Sodium Ur Random Potassium 08/15/23 08/16/23 08/16/23 Unknown 05:49 08:04 WBC 6.58 RBC 2.93 L Hgb 9.3 L Hct 26.7 L MCV 91.1 MCH 31.7 MCHC 34.8 RDW Std Deviation 50.6 H RDW Coeff of Gilbert 15.4 H Plt Count 69 L MPV 9.7 Immature Gran % (Auto) 1.1 Neut % (Auto) 67.0 Lymph % (Auto) 18.1 [place] % (Auto) 11.6 Eos % (Auto) 1.7 Baso % (Auto) 0.5 Neut # (Auto) 4.42 Lymph # (Auto) 1.19 L [place] # (Auto) 0.76 H Eos # (Auto) 0.11 Baso # (Auto) 0.03 Immature Gran # (Auto) 0.07 Sodium 133 L Potassium 3.5 Chloride 102 Carbon Dioxide 24 Anion Gap 7 BUN 46 H Creatinine 1.97 H D Est Cr Clr Drug Dosing 28.4 Est GFR ( Amer) 34.2 Est GFR (Non-Af Amer) 29.5 BUN/Creatinine Ratio 23.4 H Glucose 115 H POC Glucose 118 H Calcium 8.0 L Magnesium 2.1 Total Bilirubin 1.7 H AST 40 H ALT 33 Alkaline Phosphatase 62 Total Protein 5.3 L Albumin 3.2 L Globulin 2.1 L Albumin/Globulin Ratio 1.5 Ur Random Creatinine 49.0 Ur Random Sodium 26 Ur Random Potassium 14.7 PG Care Time/CCT Total # of Minutes Spent Total Time Spent with Patient: Total time spent is greater than 50% in coordination of care (as documented) at patient's floor/unit and/or counseling patient: Coding Level of Care Code 85267 SUB INP/OBS CARE 3/50MIN Diagnoses Acute kidney injury superimposed on chronic kidney disease N17.9; N18.9 Hyperkalemia E87.5 Chronic kidney disease, stage III (moderate) N18.30 Right heart failure I50.810 Anemia D64.9
[2023-08-16] MEDS: POLYETHYLENE (MIRALAX) 17 GM PACK PO SCH (12:03)
[2023-08-16] MEDS: SENNA 8.6 MG TAB PO SCH (12:52)
--- NOTE | 2023-08-16 17:36 | Hospitalist Progress Note ---
Date of Service August 16, 2023 Assessment & Plan (1) Acute kidney injury superimposed on chronic kidney disease: Plan: Secondary to cardiorenal syndrome Creatinine 2.38 on admission, baseline is near 1.5 Patient was also noted to have an APPLE on last admission after his left heart catheterization and at that time it was unknown if his APPLE was due to contrast from his procedure or pre-renal in nature Patient reports good p.o. intake recently, is not on diuretics, does not appear to be taking nephrotoxic medications Ct of the abd/pelvis last admission noted a punctate stone in the right kidney, patient denies recent flank or abdominal pain Renal ultrasound here negative for obstruction and he is making urine UA shows hyaline casts, 1+ protein, no evidence of infection Creatinine finally improving to 1.97. He received some gentle IV fluids initially. With associated hyponatremia and hyperkalemia on admission which continues to be improving-sodium up to 133, potassium now normal With some borderline hypotension earlier in stay which resolved with small bolus of LR He does have peripheral edema and right-sided heart failure FeNa calculated at 0.2% indicating prerenal but could also be contrast-induced nephropathy Consult nephrology appreciated Follow BMP and can follow-up with nephrology as an outpatient with labs prior after discharge (2) Dyspnea on exertion: Plan: With ongoing/progressive NAJERA over the last few weeks, thought to be related to paroxysmal A-fib, or angina. Had cardiac catheterization on 08/03 which showed normal coronary arteries but with elevated right-sided filling pressures and severe TR, normal pulmonary artery pressures and normal cardiac output, low left-sided filling pressures. His A-fib also converted to sinus rhythm and he remains in a sinus rhythm here on flecainide and metoprolol Was offered a Pulmonology consult last admission but patient preferred outpatient referral. He is not hypoxic and chest x-ray is clear. Troponin here mildly elevated but stable on several occasions at 135/131/126, not consistent with acute coronary syndrome Possibly related to severe TR? Needs follow-up with cardiology, consider inpatient consultation although he is now feeling better and able to walk further distances without shortness of breath (3) Right heart failure: Plan: As above, no known chronic lung issues Checked overnight pulse oximetry-normal, no nocturnal hypoxia Add ERENDIRA hose thigh-high for peripheral edema, avoid diuretics for now Could consider spironolactone but has had high potassium (4) Hyperkalemia: Plan: Potassium was 6.5 on arrival, secondary to acute kidney injury and high potassium diet at home He is now S/P calcium gluconate, IV insulin, dextrose, and IV fluids, Lokelma x 6 doses Potassium now normal Continue low potassium diet Follow BMP (5) Hypothyroidism: Plan: TSH quite elevated at 19, likely poor gut absorption due to right-sided heart failure and edema Give IV levothyroxine for a couple of doses and then increase levothyroxine dose to 75 mcg daily on 08/16 (6) Hyponatremia: Plan: Sodium 128 on arrival and now improved to 133 This is secondary to renal failure, volume overload giving peripheral edema and body wall edema Urine sodium low at 14 and now improved to 26, urine osmolality elevated at 460 consistent with hypervolemia with intravascular volume depletion TSH quite elevated at 19, likely from poor absorption due to gut wall edema. A.m. cortisol normal He was given a one-time dose of sodium chloride 1000 mg p.o. by nephrology Will avoid diuretics at this time due to renal function Follow BMP (7) Weakness: Plan: Patient has noticed progressive weakness over the past 1-2 weeks-has been having to crawl up his house interior steps to get to the second floor and has to stop multiple times due to weakness and SOB CT of the head/brain wo con is negative for acute findings He was recently prescribed clonazepam 3 weeks ago, also was taking doxepin at bedtime; he was also prescribed trazodone but says he never took it-discontinued clonazepam and doxepin is much improved Could also be related to heart failure and acute kidney injury ESR, CRP, CK all normal With left knee effusion now improving and ecchymosis from crawling but no pain or evidence of infection With left posterior arm laceration Overall much improved (8) Elevated troponin: Plan: Troponin elevated as above, secondary to renal failure and myocardial demand ischemia in the setting of heart failure No chest pain and recent left heart cath as above with normal coronary arteries ECG with T-wave inversions in the anterior leads new compared to last admission but serial troponin did not trend upward (9) Thrombocytopenia: Plan: Noted on last admission as well-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 given elevated LFTs as well Platelets stable today at 69 B12 level checked and normal (10) Elevated LFTs: Plan: Mild elevation and continuing daily, likely from right-sided heart failure and hepatic congestion No recent alcohol use, CT of the abd/pelvis wo con was negative for liver abnormalities last admission (11) Hypertension: Plan: Blood pressures are low here, gave small fluid bolus and now improved Reduced metoprolol to 25 mg daily for now (12) Paroxysmal A-fib: Plan: Remains in sinus bradycardia on telemetry Continue flecainide Continue metoprolol at a lower dose of 25 mg daily due to bradycardia and hypotension Continue Eliquis, renal dosing Monitor on telemetry (13) Type 2 diabetes mellitus: Plan: Last Hgb A1c last month was 6.9, not on medical management at home Continue NovoLog as needed Plan DVT prophylaxis-Eliquis Constipation-continue home Metamucil, continue docusate, add Senokot and MiraLAX, bisacodyl suppository as needed Disposition-continued stay on telemetry, PT/OT consulted but with improvement, Likely discharge to home tomorrow Admission and Anticipated Discharge Date Admission Date: August 13, 2023 Subjective Patient very constipated this morning and insist that he needs to have a bowel movement every day-last bowel movement 2 days prior. He then did have a bowel movement later in the day. He is also very concerned about his diabetes. Otherwise feeling better, no chest pain or shortness of breath, stronger with walking. Feels he is ready to go home tomorrow. Telemetry with sinus rhythm first-degree AV block rates in the 60s to 70s Physical Exam Constitutional: WD/WN, vitals as above Respiratory: normal respiratory effort, lungs clear to auscultation Cardiovascular: Rate/Rhythm: regular rate and regular rhythm Heart Sounds: + murmur (Systolic murmur heard at the left lower sternal border) E xtremities: + edema (2+ pitting edema legs to the knees bilaterally) Gastrointestinal (Abdomen): normal bowel sounds, soft, nontender, no hepatosplenomegaly Musculoskeletal: Extremities: + extremities abnormal to inspection (Left proximal forearm with edema and ecchymosis) Knee: + knee abnormal to inspection (Left knee with mild effusion, improved ecchymosis, no tenderness to palpati) Skin: Trauma: + evidence of skin trauma (Laceration posterior left upper arm) Psychiatric: A+Ox3, euthymic affect Results & Data Results & Data Vital Signs (Past 12 Hours) Vital Signs Temp Pulse Pulse Resp BP BP Pulse Ox 03/27/24 15:08 36.7 C 90 20 114/62 96 08/16/23 15:06 81 08/16/23 11:21 36.3 C L 72 20 128/74 98 08/16/23 10:30 08/16/23 08:34 74 130/77 08/16/23 07:52 36.5 C 64 20 91/48 L 99 08/16/23 07:00 68 O2 Del Method 08/16/23 15:08 Room Air 08/16/23 15:06 08/16/23 11:21 Room Air 08/16/23 10:30 Room Air 08/16/23 08:34 08/16/23 07:52 Room Air 08/16/23 07:00 Laboratory Results CBC, BMP, magnesium, LFTs reviewed urine sodium, creatinine, potassium reviewed PG Care Time/CCT Total # of Minutes Spent Total Time Spent with Patient: Total time spent is greater than 50% in coordination of care (as documented) at patient's floor/unit and/or counseling patient: Coding Level of Care Code 39316 SUB INP/OBS CARE 3/50MIN Diagnoses Acute kidney injury superimposed on chronic kidney disease N17.9; N18.9 Dyspnea on exertion R06.09 Right heart failure I50.810 Hyperkalemia E87.5 Hypothyroidism E03.9 Hyponatremia E87.1 Weakness R53.1 Elevated troponin R74.8 Thrombocytopenia D69.6 Elevated LFTs R79.89 Primary hypertension I10 Hypertension type: primary hypertension Paroxysmal A-fib I48.0 Type 2 diabetes mellitus E11.9 (11) Hypertension Hypertension type: primary hypertension Qualified Code(s): I10 - Essential (primary) hypertension
[2023-08-16] MEDS: rOPINIRole HCL 0.25 MG TABLET PO PRN (22:14)
[2023-08-17 00:08] VITALS: TEMP 97.7
[2023-08-17 06:20] LABS: Albumin Globulin Ratio 1.6 (0.9-2); Albumin Level 3.1 gm/dl (3.4-5.0); BUN Creatinine Ratio 22.5 (10-20); Bilirubin,Total 1.9 mg/dl (0.2-1.0); Calcium 7.9 mg/dl (8.6-10.3); Creatinine Clr Calc Pharmacy 31.5 ml/min; Est GFR (African American) 38.6 ml/min; Est GFR (Non-African American) 33.3 ml/min; Phosphorus 2.9 mg/dl (2.5-4.9); Potassium 3.8 mmol/L (3.5-5.1); Total Protein 5.1 gm/dl (6.0-8.3)
[2023-08-17 06:43] LABS: Basophils # (auto) 0.03 K/uL (0.00-0.20); Basophils % (auto) 0.5 %; Eosinophils # (auto) 0.15 K/uL (0.00-0.50); Eosinophils % (auto) 2.5 %; Hematocrit (blood only) 25.3 % (42.0-52.0); Hemoglobin 8.5 g/dl (14.0-18.0); Immature Granulocytes # (auto) 0.05 K/uL (0.01-0.20); Immature Granulocytes % (auto) 0.8 %; Lymphocytes # (auto) 1.15 K/uL (1.20-3.40); Lymphocytes % (auto) 18.9 %; Mean Corpuscular Hemoglobin 31.4 pg (25.0-34.0); Mean Corpuscular Hgb Conc 33.6 g/dL (32.0-36.0); Mean Corpuscular Volume 93.4 fL (80.0-100.0); Mean Platelet Volume 9.4 fL (9.4-12.4); Monocytes # (auto) 0.69 K/uL (0.11-0.59); Monocytes % (auto) 11.3 %; Neutrophils # (auto) 4.03 K/uL (1.40-6.50); Platelet Count 79 K/uL (130-400); RDW Coefficient of Variation 15.9 % (11.5-14.5); Red Blood Count 2.71 M/uL (4.70-6.10)
[2023-08-17] MEDS ORDERED: LEVOTHYROXINE SODIUM 75 MCG TABLET PO SCH (07:45)
--- NOTE | 2023-08-17 10:10 | Nephrology Progress Note ---
Date of Service August 17, 2023 Assessment & Plan (1) Acute kidney injury superimposed on chronic kidney disease: Plan: -Creatinine now approaching baseline -Electrolytes normal -Volume status: evidence of right heart failure and fluid retention -Clinical presentation consistent with hemodynamically mediated prerenal APPLE due to underlying cardiorenal syndrome: paroxysmal atrial fibrillation and findings of chronic right sided CHF -Possible component of ATN following recent catheterization -Goal is to encourage an even or slightly negative fluid balance -Continue to maintain a low potassium diet and 1200 mL fluid restriction -Medications are appropriately dosed for kidney function -Check a metabolic profile within 1 week of discharge -Arrange outpatient follow up with Dr. Abrams within 1-2 weeks of discharge (2) Hyperkalemia: Plan: -Resolved -Maintain dietary K+ restriction (3) Chronic kidney disease, stage III (moderate): Plan: -CKD III b A1 secondary to microvascular disease: baseline creatinine ~1.7 mg/dL -Follows with Dr. Abrams (4) Right heart failure: Plan: -TTE with noted RV dilation and severe TR -Cardiology follow up will be required (5) Anemia: Plan: -Given underlying B-cell CLL, defer management to hematology Plan Admission and Anticipated Discharge Date Admission Date: August 13, 2023 Subjective No acute events overnight. Expressed relief after being able to move his bowels. Appetite is good. Sleep quality improved last night. Maxwell states that Requip helped alleviate RLS symptoms but it only lasted a few hours. He is breathing comfortably. He denies lightheadedness, dizziness, syncope or presyncope. He denies chest pains or palpitations. Review of Systems Review of Systems: All systems reviewed & are unremarkable except as noted in HPI & below Physical Exam Constitutional: well developed, + thin and + frail appearing; no acute distress Eyes: + anicteric sclerae; no corneal abnormal ity ENMT: Mouth: no oral mucosal abnormality and oral mucous membranes not dry Neck: normal visual inspection and trachea midline Respiratory: normal respiratory effort Auscultation: lungs clear to auscultation bilaterally Cardiovascular: Rate/Rhythm: regular rate and regular rhythm Heart Sounds: normal S1 and normal S2 Vessels: + JVD Extremities: + edema Musculoskeletal: Extremities: no cyanosis and no clubbing Skin: normal turgor; no lesions Neurologic: Motor/Sensory: no tremor and no asterixis Psychiatric: Orientation: alert and oriented x 3 Results & Data Vital Signs (Past 12 Hours) Vital Signs Temp Pulse Pulse Resp BP Pulse Ox O2 Del Method 08/17/23 08:55 72 102/64 08/17/23 08:00 36.5 C 62 14 83/41 L 98 Room Air 08/17/23 07:22 67 08/17/23 04:30 36.5 C 71 18 102/56 L 94 Room Air 08/17/23 00:07 36.5 C 65 18 109/58 L 95 Room Air 08/16/23 23:14 68 Laboratory Results Laboratory Results - last 24 hr 08/16/23 08/16/23 08/16/23 11:59 16:51 20:12 WBC RBC Hgb Hct MCV MCH MCHC RDW Std Deviation RDW Coeff of Gilbert Plt Count MPV Immature Gran % (Auto) Neut % (Auto) Lymph % (Auto) Towns % (Auto) Eos % (Auto) Baso % (Auto) Neut # (Auto) Lymph # (Auto) Towns # (Auto) Eos # (Auto) Baso # (Auto) Immature Gran # (Auto) Sodium Potassium Chloride Carbon Dioxide Anion Gap BUN Creatinine Est Cr Clr Drug Dosing Est GFR ( Amer) Est GFR (Non-Af Amer) BUN/Creatinine Ratio Glucose POC Glucose 204 H 123 H 158 H Calcium Phosphorus Total Bilirubin AST ALT Alkaline Phosphatase Total Protein Albumin Globulin Albumin/Globulin Ratio 08/17/23 08/17/23 05:34 08:11 WBC 6.10 RBC 2.71 L Hgb 8.5 L Hct 25.3 L MCV 93.4 MCH 31.4 MCHC 33.6 RDW Std Deviation 53.0 H RDW Coeff of Gilbert 15.9 H Plt Count 79 L MPV 9.4 Immature Gran % (Auto) 0.8 Neut % (Auto) 66.0 Lymph % (Auto) 18.9 Towns % (Auto) 11.3 Eos % (Auto) 2.5 Baso % (Auto) 0.5 Neut # (Auto) 4.03 Lymph # (Auto) 1.15 L Towns # (Auto) 0.69 H Eos # (Auto) 0.15 Baso # (Auto) 0.03 Immature Gran # (Auto) 0.05 Sodium 136 Potassium 3.8 Chloride 105 Carbon Dioxide 25 Anion Gap 6 BUN 40 H Creatinine 1.78 H Est Cr Clr Drug Dosing 31.5 Est GFR ( Amer) 38.6 Est GFR (Non-Af Amer) 33.3 BUN/Creatinine Ratio 22.5 H Glucose 111 H POC Glucose 109 H Calcium 7.9 L Phosphorus 2.9 Total Bilirubin 1.9 H AST 34 ALT 28 Alkaline Phosphatase 57 Total Protein 5.1 L Albumin 3.1 L Globulin 2.0 L Albumin/Globulin Ratio 1.6 PG Care Time/CCT Total # of Minutes Spent Total Time Spent with Patient: Total time spent is greater than 50% in coordination of care (as documented) at patient's floor/unit and/or counseling patient: Coding Level of Care Code 52201 SUB INP/OBS CARE 3/50MIN Diagnoses Acute kidney injury superimposed on chronic kidney disease N17.9; N18.9 Hyperkalemia E87.5 Chronic kidney disease, stage III (moderate) N18.30 Right heart failure I50.810 Anemia D64.9
[2023-08-17 11:53] VITALS: PULSE 65
[2023-08-17 15:23] VITALS: BP 130/73; RESP 18; O2SAT 97
--- NOTE | 2023-08-17 16:13 | Discharge Summary ---
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 Vitals remained stable in the ED. Labs were significant for an improving thrombocytopenia of 72. cr of 2.38 (baseline is near 1.5), BUN of 47, potassium of 6.5, sodium of 128, total bili of 2.2, AST of 81, ALT of 62, initial high sen trop of 135, lipase of 172, and covid 19 screen negative. Chest xray was read as "No acute abnormalities and in particular no radiographic evidence of pneumonia.". Prior to admission the patient was given 1gm IV calcium gluconate, 5 units IV Insulin, 50 mL dextrose, and 1L NSS. The patient was recently admitted to [facility] from 08/03/23-08/04/23 after he initially presented for scheduled cardioversion for afib but Cardiology had concerns for unstable angina. During his admission he underwent left heart catheterization which did not show any occlusive coronary disease and normal ejection fraction. He was noted to be thrombocytopenic with a platelet count of 62 K. Lyme, anaplasmosis, and babesiosis screening was negative. Ct of the abd/pelvis wo con showed unremarkable liver and spleen. The Hospital medicine team spoke with [facility] who was comfortable with the workup and would follow him after discharge. He was noted to have an APPLE, differential included dehydration vs contrast induced due to heart cath. He was instructed to increased his PO fluid intake and creatinine improved slightly at the time of discharge. At the time of the of the exam the patient was sitting in bed in no acute distress. He states that since his discharge on 08/03 he has had progressive NAJERA and increased weakness. He confirms that his SOB is only with exertion and not at rest. He denies recent cough, chest pain, or hemoptysis. Regarding his weakness, he has noticed feeling increasingly weak in the shoulders, quadriceps, hamstrings, and calves. Over the past week he has had incredible difficulty getting up his steps to the second floor of his home. He has recently been having to crawl up the steps and stops frequently to take breaks. He had a fall while walking in his home recently as he was trying to workout on the ground and lost his strength while trying to stand. He sustained a large laceration on the posterior left upper extremity. He also sustained a large hematoma on the left buttocks from his fall which he states has been improving. He went to urgent care where the laceration was closed with steri strips and bandaged. When asked, he feels as though his legs are getting more swollen and he does not think he is urinating as much as he normally does. He has been taking his home medications as prescribed and states that he has been eating papaya and drinking water to deal with chronic constipation. It takes him about a week to eat one whole papaya. He denies recent fever, chills, abd pain, nausea, vomiting, diarrhea, dysuria, hematuria, melena. He is a full code. Please refer to Dr. Quigley's attestation for any changes to the treatment plan Principal Dx & Hospital Course #1 = Principal Diagnosis (1) Acute kidney injury superimposed on chronic kidney disease: Secondary to cardiorenal syndrome Creatinine 2.38 on admission, baseline is near 1.5 Patient was also noted to have an APPLE on last admission after his left heart catheterization and at that time it was unknown if his APPLE was due to contrast from his procedure or pre-renal in nature Patient reports good p.o. intake recently, is not on diuretics, does not appear to be taking nephrotoxic medications Ct of the abd/pelvis last admission noted a punctate stone in the right kidney, patient denies recent flank or abdominal pain Renal ultrasound here negative for obstruction and he is making urine UA shows hyaline casts, 1+ protein, no evidence of infection Creatinine finally improving to 1.78 on day of discharge. He received some gentle IV fluids initially. With associated hyponatremia and hyperkalemia on admission which continues to be improving-sodium up to 136, potassium now normal With some borderline hypotension earlier in stay which resolved with small bolus of LR He does have peripheral edema and right-sided heart failure FeNa calculated at 0.2% indicating prerenal but could also be contrast-induced nephropathy Consult nephrology appreciated Follow BMP in 1 week and can follow-up with nephrology 1-2 weeks after discharge (2) Dyspnea on exertion: With ongoing/progressive NAJERA over the last few weeks, thought to be related to paroxysmal A-fib, or angina. Had cardiac catheterization on 08/03 which showed normal coronary arteries but with elevated right-sided filling pressures and severe TR, normal pulmonary artery pressures and normal cardiac output, low left-sided filling pressures. His A-fib also converted to sinus rhythm and he remains in a sinus rhythm here on flecainide and metoprolol Was offered a Pulmonology consult last admission but patient preferred outpatient referral. He is not hypoxic and chest x-ray is clear. Troponin here mildly elevated but stable on several occasions at 135/131/126, not consistent with acute coronary syndrome Possibly related to severe TR? Needs follow-up with cardiology Now able to walk further distances without shortness of breath, much improved (3) Right heart failure: As above, no known chronic lung issues Checked overnight pulse oximetry-normal, no nocturnal hypoxia Added ERENDIRA hose thigh-high for peripheral edema, avoid diuretics for now Could consider spironolactone but has had high potassium (4) Hyperkalemia: Potassium was 6.5 on arrival, secondary to acute kidney injury and high potassium diet at home He is now S/P calcium gluconate, IV insulin, dextrose, and IV fluids, Lokelma x 6 doses Potassium now normal Continue low potassium diet after discharge Follow BMP in 1 week (5) Hypothyroidism: TSH quite elevated at 19, likely poor gut absorption due to right-sided heart failure and edema Gave IV levothyroxine for a couple of doses and then increase levothyroxine dose to 75 mcg daily on 08/16 Check TSH in 4 weeks as outpt (6) Hyponatremia: Sodium 128 on arrival and now improved to 136 This is secondary to renal failure, volume overload giving peripheral edema and body wall edema Urine sodium low at 14 and now improved to 26, urine osmolality elevated at 460 consistent with hypervolemia with intravascular volume depletion TSH quite elevated at 19, likely from poor absorption due to gut wall edema. A.m. cortisol normal He was given a one-time dose of sodium chloride 1000 mg p.o. by nephrology Will avoid diuretics at this time due to renal function Follow BMP as an outpt (7) Weakness: Patient has noticed progressive weakness over the past 1-2 weeks-has been having to crawl up his house interior steps to get to the second floor and has to stop multiple times due to weakness and SOB CT of the head/brain wo con is negative for acute findings He was recently prescribed clonazepam 3 weeks ago, also was taking doxepin at bedtime; he was also prescribed trazodone but says he never took it-discontinued clonazepam and doxepin is much improved Could also be related to heart failure and acute kidney injury ESR, CRP, CK all normal With left knee effusion now improving and ecchymosis from crawling but no pain or evidence of infection With left posterior arm laceration Overall much improved Discontinued clonazepam, doxepin (8) Elevated troponin: Troponin elevated as above, secondary to renal failure and myocardial demand isc hemia in the setting of heart failure No chest pain and recent left heart cath as above with normal coronary arteries ECG with T-wave inversions in the anterior leads new compared to last admission but serial troponin did not trend upward (9) Thrombocytopenia: Noted on last admission as well-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 given elevated LFTs as well Platelets stable at 79 B12 level checked and normal (10) Elevated LFTs: Mild elevation and continuing daily, likely from right-sided heart failure and hepatic congestion No recent alcohol use, CT of the abd/pelvis wo con was negative for liver abnormalities last admission (11) Hypertension: Blood pressures are low here, gave small fluid bolus and now improved Reduced metoprolol to 25 mg daily and BPs normalized, HRs remained in sinus in the 60s (12) Paroxysmal A-fib: Remains in sinus bradycardia to normal sinus with 1st degree AVB on telemetry Continue flecainide Continue metoprolol at a lower dose of 25 mg daily due to bradycardia and hypotension Continue Eliquis, renal dosing f/u with Cardiology (13) Type 2 diabetes mellitus: Last Hgb A1c last month was 6.9, not on medical management at home Seen by DM educator here and got a glucometer, education-he would feel better knowing what his glucose readings are at home to keep track to see if needs medications for DM at a later date does not need medication at home given age and comorbidities Plan DVT prophylaxis-Eliquis Constipation-continue home Metamucil, continue docusate Disposition- discharge to home today Discharge Exam Constitutional WD/WN, vitals as above Cardiovascular Extremities: + edema (2+ pitting edema legs to the knees bilaterally) Musculoskeletal Extremities: + extremities abnormal to inspection (Left proximal forearm with edema and ecchymosis) Skin Trauma: + evidence of skin trauma (Laceration posterior left upper arm) Psychiatric A+Ox3, euthymic affect Updated Medication List Medication Instructions Recorded Confirmed Type vit C,N-Wm-uohnrx-lutein-zeaxan 60 1 cap PO QAM 01/03/19 08/13/23 History mg-13.5 mg-15 mg-2 mg-6 mg capsule (Ocuvite Lutein and Zeaxanthin) psyllium husk 3.4 gram/5.4 gram 1 tsp PO DAILY 10/22/21 08/13/23 History oral powder (Metamucil) apixaban 2.5 mg tablet (Eliquis) 2.5 mg PO BID #180 tabs 12/12/22 08/13/23 Rx mecobalamin (vitamin B12) 5,000 2,500 mcg (1/2 x 5,000 mcg) PO Q 03/29/23 08/13/23 Rx mcg disintegrating tablet OTHER DAY #1 tab atorvastatin 20 mg tablet 10 mg PO QAM 07/13/23 08/13/23 History flecainide 50 mg tablet 50 mg PO Q12H #60 tabs 07/27/23 08/13/23 Rx buspirone 5 mg tablet 5 mg PO HS PRN Anxiety 08/07/23 08/13/23 History docusate sodium 100 mg capsule 200 mg PO HS Constipation 08/07/23 08/13/23 History ropinirole 0.25 mg tablet 0.25 mg PO HS PRN Restless Leg(S) 08/13/23 08/13/23 History levothyroxine 75 mcg capsule 75 mcg PO QAM #30 caps 08/17/23 Rx metoprolol succinate 25 mg 25 mg PO QAM #30 tabs 08/17/23 Rx tablet,extended release 24 hr Hospital Stay Data Consultations 08/13/23 15:02 ED Decision to Admit Stat 08/14/23 07:27 Consult Nephrology Routine Diagnostic Imagining Performed 08/13/23 14:47 CT head/brain wo con Stat 08/14/23 07:33 US renal/blad retro comp Urgent Pending Results Patient Have Any Pending Studies at Discharge: No Discharge Instructions Given to Patient (Per Discharging Provider) You were admitted with weakness which was likely from your kidney failure, but also from taking clonazepam. The clonazepam and doxepin were STOPPED. Your kidney failure improved. Please get blood work checked of your kidney function in 1 week and follow up with Dr. Abrams in 1-2 weeks. Your metoprolol dose was lowered to 25mg daily because of your low blood pressures. You should continue to wear compression stockings during the day and these can be removed at nighttime. Your thyroid function was quite low and your levothyroxine dose was increased to 75 mcg daily. Please have your PCP check your thyroid function again in about 4 weeks. Call your Primary Care doctor if any of the following symptoms or problems start or get worse: * Shortness of breath or difficulty breathing * Wake up at night short of breath * Chest pain * Cough * Swelling of your hands, feet, or legs * More fatigued or tired with your normal activity * Palpitations - sudden fast heart beats WEIGHT * Weigh yourself every morning after using the bathroom. * Use the same scale. * Wear the same amount of clothing. * Write your weight down on a chart. * Call your Primary Care doctor if you gain more than 2-3 pounds in 1-2 days. MEDICATIONS * Use this discharge instruction sheet for medication instructions. * Take your medications at the time your doctor ordered. * Do not skip a dose of your medicines. * If you miss a dose of medicine, take it as soon as possible, but DO NOT DOUBLE A DOSE. * Read your medicine information when you get home. * Know all of the side effects of your medicine. If in doubt, ask your pharmacist * Call your Primary Care doctor's office if you have any side effects. * Be sure all of your doctors know what medicine and herbs you take (including cold, flu, and herbal medicine). Take the following with you to your follow-up doctor appointments: * Weight Chart * Medication List * List of questions Do not drink excessive alcohol, beer or wine. Total Time Total Time Spent Total Time Spent (In Minutes): 35 min Coding Level of Care Code 02553 INP/OBS DISCH >30 MIN Diagnoses Acute kidney injury superimposed on chronic kidney disease N17.9; N18.9 Dyspnea on exertion R06.09 Right heart failure I50.810 Hyperkalemia E87.5 Hypothyroidism E03.9 Hyponatremia E87.1 Weakness R53.1 Elevated troponin R74.8 Thrombocytopenia D69.6 Elevated LFTs R79.89 Primary hypertension I10 Hypertension type: primary hypertension Paroxysmal A-fib I48.0 Type 2 diabetes mellitus E11.9
[2023-08-17] MEDS ORDERED: rOPINIRole HCL 0.25 MG TABLET PO SCH (21:00)
== END 2023-08-17 17:06 | disposition home or self-care (01) | DRG 683 ==
LOC: ED 13:15 → SUATTDRO 18:17 → EDINP 18:17 → 2N 18:22

== ENCOUNTER 2023-08-24 15:31 | Inpatient (IN) ==
--- NOTE | 2023-08-24 15:47 | ED Triage Note ---
Date of Service August 24, 2023 Provider in Triage Author: Hernan King History of Present Illness This patient was briefly evaluated while in triage. An abbreviated physical exam was performed. This patient is a 88-year-old Male who presents to the ED for evaluation of shortness of breath, lower extremity swelling and kidney issues. The patient was sent to the emergency department by his PCP for these concerns. The patient currently denies any chest pain. He has not had any recent chills or fever. Physical Exam CONSTITUTIONAL: Healthy and well nourished. Patient does not appear in any acute distress. HEENT: No scleral icterus or conjunctival injection. RESPIRATORY: Clear to auscultation bilaterally with no wheezing, crackles, rhonchi or stridor. CARDIOVASCULAR: Regular rate and rhythm with no murmurs, rubs or gallops. GASTROINTESTINAL: Bowel sounds present in all quadrants. INTEGUMENTARY: No rash or other significant dermatologic conditions noted. HEMATOLOGIC: No ecchymosis or petechiae. PSYCHIATRIC: Positive affect. NEUROLOGIC: No focal neurologic deficits noted. Initial orders for labs and / or imaging were placed and patient was placed in the waiting area until a bed is available. Please see further documentation for the full ED course.
[2023-08-24 16:29] LABS: Basophils # (auto) 0.03 K/uL (0.00-0.20); Basophils % (auto) 0.3 %; Eosinophils # (auto) 0.07 K/uL (0.00-0.50); Eosinophils % (auto) 0.8 %; Hematocrit (blood only) 27.4 % (42.0-52.0); Immature Granulocytes # (auto) 0.16 K/uL (0.01-0.20); Immature Granulocytes % (auto) 1.7 %; Lymphocytes # (auto) 0.95 K/uL (1.20-3.40); Lymphocytes % (auto) 10.4 %; Mean Corpuscular Hemoglobin 31.9 pg (25.0-34.0); Mean Corpuscular Hgb Conc 32.8 g/dL (32.0-36.0); Mean Corpuscular Volume 97.2 fL (80.0-100.0); Mean Platelet Volume 9.5 fL (9.4-12.4); Monocytes # (auto) 0.96 K/uL (0.11-0.59); Monocytes % (auto) 10.5 %; Neutrophils % (auto) 76.3 %; Platelet Count 122 K/uL (130-400); RDW Coefficient of Variation 17.7 % (11.5-14.5); RDW Standard Deviation 61.2 fL (36.4-46.3); Red Blood Count 2.82 M/uL (4.70-6.10); White Blood Count 9.17 K/ul (4.8-10.8)
--- NOTE | 2023-08-24 16:45 | XRay Report ---
SINGLE VIEW CHEST CLINICAL HISTORY: Atypical chest pain. FINDINGS: A PA chest radiograph is compared to study dated 08/13/2023. Correlation is made with abdomi nal CT dated 08/03/2023. The heart is enlarged noting atherosclerotic calcification of the thoracic ao rta. The pulmonary vasculature is noncongested. Chronic interstitial thickening is similar to previou s. There is a small right pleural effusion. No airspace consolidation typical for pneumonia is identi fied. No pneumothorax is seen. The skeletal structures are osteopenic. The bony thorax is grossly int act. IMPRESSION: 1. Cardiomegaly without radiographic evidence of congestive failure. 2. A small right pleural effusion is noted. This was also seen on the 08/03/[address] ACT 112: Negative or not required by law. Electronically signed by: Gamaliel Tavares M.D. 08/24/2023 4:44 PM
[2023-08-24 16:55] LABS: Albumin Level 4.1 gm/dl (3.4-5.0); Anion Gap 9 (3-11); Bilirubin,Total 3.3 mg/dl (0.2-1.0); Carbon Dioxide 22 mmol/L (21-32); Chloride 98 mmol/L (98-107); INR 1.2 (0.9-1.1); Partial Thromboplastin Ratio 1.1; Partial Thromboplastin Time 32 Seconds (21-31); Potassium 4.6 mmol/L (3.5-5.1); Sodium 129 mmol/L (136-145)
[2023-08-24 17:01] LABS: Alanine Aminotransferase 26 U/L (7-52); Albumin Globulin Ratio 1.6 (0.9-2); Alkaline Phosphatase 83 U/L (34-104); Aspartate Aminotransferase 46 U/L (13-39); BUN Creatinine Ratio 28.3 (10-20); Blood Urea Nitrogen 47 mg/dl (6-23); Creatine Kinase 69 U/L (30-223); Est GFR (Non-African American) 36.3 ml/min; Globulin 2.5 gm/dl (2.5-4.0); Glucose 119 mg/dl (70-99(Fasting)); Lipase 144 U/L (11-82); Total Protein 6.6 gm/dl (6.0-8.3)
[2023-08-24 17:15] LABS: Troponin I High Sensitivity 105.5 pg/ml (0-20)
[2023-08-24 20:17] LABS: Appearance Urine Clear (Clear); Bacteria Urine Automated Negative (Negative); Bilirubin Urine Negative (Negative); Blood Urine Negative (Negative); Cast Urine Automated 0 /lpf (0-5); Color Urine Yellow; Epithelial Cell Urine Auto 0-5 /lpf (0-5); Glucose Urine UA Negative (Negative); Ketones Urine Negative (Negative); Leukocyte Esterase Urine Negative (Negative); Nitrite Urine Negative (Negative); Protein Urine 1+ (Negative); RBC Urine Automated 0-4 /hpf (0-4); Specific Gravity Urine 1.013 (1.000-1.030); Urobilinogen Urine Negative (Negative); pH Urine 5.5 (4.5-7.5)
[2023-08-24] MEDS: OPTIRAY 320 100ml IV ONE (20:51)
--- NOTE | 2023-08-24 20:54 | Emergency Department Note ---
Impression & Plan Hyperbilirubinemia, Anasarca, Fall at home, CKD (chronic kidney disease) ED Provider Note NAME: HANNAH HE AGE: 88 SEX: M : 1935 ARRIVES VIA: Walk-In INFORMANT: Patient, ED PROVIDER(S): Amanda Villar MD CHIEF COMPLAINT: Sent in by nephrology HPI: This is a 88-year-old male history of CKD, type 2 diabetes, dyslipidemia, A-fib presenting for jaundice. Patient is with a close family friend who states that he helps the patient out significantly, they have known each other for 50+ years. 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 The friend then tells me that patient has been falling more frequently and is having trouble getting around at home. He has to crawl up the stairs in order to get to the second story. Patient is covered in ecchymoses. He has a feeling weak and progressively worsening. He notes he has bilateral lower extremity swelling. To me he denies any shortness of breath but did endorse this at triage. ROS: See above HPI for pertinent positives & negatives. A total of 10 systems reviewed and were otherwise negative. PAST MEDICAL HISTORY: See Below PAST SURGICAL HISTORY: See Below FAMILY HISTORY: See Below SOCIAL HISTORY: See Below HOME MEDICATIONS: See Below ALLERGIES: See Below VITALS: See Below PHYSICAL EXAMINATION: General: resting comfortably in no acute distress, subtle jaundice Head: Normocephalic and atraumatic Eyes: Normal inspection, extraocular muscles intact Ear, nose, throat: Normal external exam Neck: Normal range of motion Respiratory: Crackles at the bases Cardiovascular: Regular rate/rhythm, no murmur GI: soft, nontender, no guarding or rebound Extremities: Nontender, 2+ pitting edema Neuro: The patient awake and alert, appropriately conversive, no focal deficits, symmetric faces Skin: Warm, dry, and intact MEDICAL DECISION MAKING: This is an 88-year-old male presenting for jaundice/concerns at home. His family friend is concerned about patient's wellbeing as he lives alone and has been falling and unable to get up the stairs without crawling up the stairs. Patient has a son in [place] but does not have a manufacturing systems engineer is here. patient was here previously with similar lab results -Lab work is reviewed here with hemoglobin of 9, INR 1.2, hyponatremia 129 -BUN/creatinine elevation, bilirubin at 3.3 without clear transaminitis -Troponin is elevated here at 105, patient denies any current or recent chest pain -ECG independently interpreted by me with possible sinus versus accelerated junctional rhythm, rate of 72, normal QRS, normal QTc, no ST segment elevations consistent with STEMI criteria -Did add on CT of the abscess pelvis to help elucidate patient's elevated bilirubin, jaundice and anasarca -CT abdomen reveals worsening pleural effusion and anasarca -Chest Xray independently interpreted by me showing no pneumothorax, focal opacity, with a pleural effusion seen on the right -Will admit patient for possible placement/unsafe discharge plan as well as patient's anasarca/fluid overload Differential diagnosis: Deconditioning, pancreatic cancer, cholecystitis, choledocholithiasis, sepsis ER treatment provided: See below Diagnostics interpreted by me: ECG: See above Cardiac Monitoring: An order was placed for continuous cardiac monitoring. The monitor shows a rate of 69 with undetermined rhythm. Laboratory studies: As stated above and show below. Imaging studies: See below. Past Med/Surg History Medical History Non-ST elevation VA (NSTEMI) Hypothyroidism Right heart failure History of cardioversion Anticoagulant long-term use History of anesthesia reaction History of gout Pancreatic cyst Constipation IBS (irritable bowel syndrome) DM type 2 (diabetes mellitus, type 2) HLD (hyperlipidemia) Atrial flutter Hypertension Chronic kidney disease, stage III (moderate) Insomnia Leukemia, chronic lymphoid, in remission Malignant neoplasm of male breast Atrial fibrillation Benign essential hypertension Surgical History History of lymph node excision H/O left mastectomy History of surgery History of cataract surgery History of left hip replacement History of right hip replacement History of right mastectomy History of colonoscopy Family History Other No family history of adverse response to anesthesia Denies family history of Ovarian cancer Prostate cancer Breast cancer Lung cancer Colorectal cancer Social History Smoking Status: Never smoker Second Hand Exposure: No; Do You Dip or Chew Tobacco: No; Hx Alcohol Use: Yes Alcohol type: beer and wine Hx Substance Use: No Preferred Language: Algerian Communication Ability: Effective Pizza Driver Required: No Beliefs That Will Affect Care: None marital status: / Current Living Situation: Alone 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 How many Children do You have Comment: one son Feels Safe at Home: Yes Seatbelt Use: always Sunscreen Use: No Assistive Devices: Glasses Allergies Allergies Allergy/AdvReac Type Severity Reaction Status Date / Time Sulfa (Sulfonamide Allergy Intermediate HIVES Verified 08/24/23 14:24 Antibiotics) Home Meds Home Medications Medication Instructions Recorded Confirmed psyllium husk 3.4 gram/5.4 gram 1 tsp PO BID 10/22/21 08/24/23 oral powder (Metamucil) atorvastatin 20 mg tablet 10 mg PO QAM 07/13/23 08/24/23 buspirone 5 mg tablet 5 mg PO HS PRN Anxiety 08/07/23 08/24/23 ropinirole 0.25 mg tablet 0.25 mg PO HS PRN Restless Leg(S) 08/13/23 08/24/23 clonazepam 0.5 mg tablet 0.5 mg PO HS PRN Insomnia 08/24/23 08/24/23 doxepin 10 mg capsule 10 mg PO HS PRN Insomnia 08/24/23 08/24/23 levothyroxine 75 mcg tablet 75 mcg PO DAILYBB 08/24/23 08/24/23 [id number] 250 mg-dha 90 2 cap PO DAILY 08/24/23 08/24/23 mg-epa 160 [id number] capsule (Ocuvite Adult 50 Plus) Previous Rx's Medication Instructions Recorded apixaban 2.5 mg tablet (Eliquis) 2.5 mg PO BID #180 tabs 12/12/22 mecobalamin (vitamin B12) 5,000 2,500 mcg (1/2 x 5,000 mcg) PO Q 03/29/23 mcg disintegrating tablet OTHER DAY #1 tab flecainide 50 mg tablet 50 mg PO Q12H #60 tabs 07/27/23 metoprolol succinate 25 mg 25 mg PO QAM #30 tabs 08/17/23 tablet,extended release 24 hr blood sugar diagnostic (OneTouch #100 ea 08/18/23 Verio test strips) lancets 33 gauge (OneTouch Delica #100 ea 08/18/23 Plus Lancet) furosemide 40 mg tablet (Lasix) 40 mg PO DAILY PRN edema, SOB, 08/22/23 weight gain #30 tabs Results & Data (ED) Vital Signs Vital Signs - 24 hr 08/24/23 15:42 08/24/23 18:08 08/24/23 18:57 Temperature Source Temporal Artery Scan Pulse Rate 73 68 Pulse Rate [Apical] 89 Pulse Rate from SpO2 Sensor Respiratory Rate 19 20 Respiratory Effort / Characteristics Non-Labored Spontaneous Respiratory Depth Normal Blood Pressure 130/70 Blood Pressure [Right Arm] 134/86 Blood Pressure Mean 90 Blood Pressure Mean [Right Arm] 102 Pulse Oximetry 97 100 Oxygen Delivery Method Room Air Room Air Sepsis Recent Fever Within 48 Hours No Sepsis New/Unexplained Change in Mental Status N/A Sepsis Action Taken by Nursing No Action Required 08/24/23 18:57 08/24/23 19:00 08/24/23 20:00 Temperature Source Pulse Rate 64 65 Pulse Rate [Apical] Pulse Rate from SpO2 Sensor 67 65 Respiratory Rate 17 12 Respiratory Effort / Characteristics Respiratory Depth Blood Pressure 135/81 134/78 Blood Pressure [Right Arm] Blood Pressure Mean 99 96 Blood Pressure Mean [Right Arm] Pulse Oximetry 100 99 Oxygen Delivery Method Room Air Sepsis Recent Fever Within 48 Hours Sepsis New/Unexplained Change in Mental Status Sepsis Action Taken by Nursing 08/24/23 21:00 08/24/23 22:00 08/24/23 22:02 Temperature Source Pulse Rate 72 66 Pulse Rate [Apical] Pulse Rate from SpO2 Sensor 69 66 Respiratory Rate 12 Respiratory Effort / Characteristics Respiratory Depth Blood Pressure 126/85 128/76 Blood Pressure [Right Arm] Blood Pressure Mean 98 93 Blood Pressure Mean [Right Arm] Pulse Oximetry 95 99 Oxygen Delivery Method Sepsis Recent Fever Within 48 Hours Sepsis New/Unexplained Change in Mental Status Sepsis Action Taken by Nursing 08/24/23 23:00 Temperature Source Pulse Rate 69 Pulse Rate [Apical] Pulse Rate from SpO2 Sensor 65 Respiratory Rate 17 Respiratory Effort / Characteristics Respiratory Depth Blood Pressure 129/74 Blood Pressure [Right Arm] Blood Pressure Mean 92 Blood Pressure Mean [Right Arm] Pulse Oximetry 100 Oxygen Delivery Method Sepsis Recent Fever Within 48 Hours Sepsis New/Unexplained Change in Mental Status Sepsis Action Taken by Nursing Laboratory Data 08/24/23 15:55 08/24/23 15:55 Lab Results 08/24/23 08/24/23 08/24/23 Range/Units 15:55 17:48 19:50 WBC 9.17 (4.8-10.8) K/ul RBC 2.82 L (4.70-6.10) M/uL Hgb 9.0 L (14.0-18.0) g/dl Hct 27.4 L (42.0-52.0) % MCV 97.2 (80.0-100.0) fL MCH 31.9 (25.0-34.0) pg MCHC 32.8 (32.0-36.0) g/dL RDW Std Deviation 61.2 H (36.4-46.3) fL RDW Coeff of Gilbert 17.7 H (11.5-14.5) % Plt Count 122 L (130-400) K/uL MPV 9.5 (9.4-12.4) fL Immature Gran % (Auto) 1.7 % Neut % (Auto) 76.3 % Lymph % (Auto) 10.4 % Cavalier % (Auto) 10.5 % Eos % (Auto) 0.8 % Baso % (Auto) 0.3 % Neut # (Auto) 7.00 H (1.40-6.50) K/uL Lymph # (Auto) 0.95 L (1.20-3.40) K/uL Cavalier # (Auto) 0.96 H (0.11-0.59) K/uL Eos # (Auto) 0.07 (0.00-0.50) K/uL Baso # (Auto) 0.03 (0.00-0.20) K/uL Immature Gran # (Auto) 0.16 (0.01-0.20) K/uL PT 13.0 H (9.0-12.0) Seconds INR 1.2 H (0.9-1.1) APTT 32 H (21-31) Seconds PTT Ratio 1.1 Sodium 129 L (136-145) mmol/L Potassium 4.6 (3.5-5.1) mmol/L Chloride 98 (98-107) mmol/L Carbon Dioxide 22 (21-32) mmol/L Anion Gap 9 (3-11) BUN 47 H (6-23) mg/dl Creatinine 1.66 H (0.6-1.4) mg/dl Est Cr Clr Drug Dosing Not Reportable Est GFR ( Amer) 42.0 ml/min Est GFR (Non-Af Amer) 36.3 ml/min BUN/Creatinine Ratio 28.3 H (10-20) Glucose 119 H (70-99(Fasting)) mg/dl Calcium 9.0 (8.6-10.3) mg/dl Total Bilirubin 3.3 H (0.2-1.0) mg/dl AST 46 H (13-39) U/L ALT 26 (7-52) U/L Alkaline Phosphatase 83 (34-104) U/L Total Creatine Kinase 69 (30-223) U/L Troponin I High Sens 105.5 H* 102.2 H* (0-20) pg/ml B-Natriuretic Peptide (0-100) pg/ml Total Protein 6.6 (6.0-8.3) gm/dl Albumin 4.1 (3.4-5.0) gm/dl Globulin 2.5 (2.5-4.0) gm/dl Albumin/Globulin Ratio 1.6 (0.9-2) Lipase 144 H (11-82) U/L Urine Color Yellow Urine Appearance Clear (Clear) Urine pH 5.5 (4.5-7.5) Ur Specific [place] 1.013 (1.000-1.030) Urine Protein 1+ H (Negative) Urine Glucose (UA) Negative (Negative) Urine Ketones Negative (Negative) Urine Blood Negative (Negative) Urine Nitrite Negative (Negative) Urine Bilirubin Negative (Negative) Urine Urobilinogen Negative (Negative) Ur Leukocyte Esterase Negative (Negative) Urine WBC (Auto) 1-5 (0-5) /hpf Urine RBC (Auto) 0-4 (0-4) /hpf U Hyaline Cast (Auto) 0 (0-5) /lpf U Epithel Cells (Auto) 0-5 (0-5) /lpf Urine Bacteria (Auto) Negative (Negative) 08/24/23 Range/Units 22:53 WBC (4.8-10.8) K/ul RBC (4.70-6.10) M/uL Hgb (14.0-18.0) g/dl Hct (42.0-52.0) % MCV (80.0-100.0) fL MCH (25.0-34.0) pg MCHC (32.0-36.0) g/dL RDW Std Deviation (36.4-46.3) fL RDW Coeff of Gilbert (11.5-14.5) % Plt Count (130-400) K/uL MPV (9.4-12.4) fL Immature Gran % (Auto) % Neut % (Auto) % Lymph % (Auto) % Cavalier % (Auto) % Eos % (Auto) % Baso % (Auto) % Neut # (Auto) (1.40-6.50) K/uL Lymph # (Auto) (1.20-3.40) K/uL Cavalier # (Auto) (0.11-0.59) K/uL Eos # (Auto) (0.00-0.50) K/uL Baso # (Auto) (0.00-0.20) K/uL Immature Gran # (Auto) (0.01-0.20) K/uL PT (9.0-12.0) Seconds INR (0.9-1.1) APTT (21-31) Seconds PTT Ratio Sodium (136-145) mmol/L Potassium (3.5-5.1) mmol/L Chloride (98-107) mmol/L Carbon Dioxide (21-32) mmol/L Anion Gap (3-11) BUN (6-23) mg/dl Creatinine (0.6-1.4) mg/dl Est Cr Clr Drug Dosing Est GFR ( Amer) ml/min Est GFR (Non-Af Amer) ml/min BUN/Creatinine Ratio (10-20) Glucose (70-99(Fasting)) mg/dl Calcium (8.6-10.3) mg/dl Total Bilirubin (0.2-1.0) mg/dl AST (13-39) U/L ALT (7-52) U/L Alkaline Phosphatase (34-104) U/L Total Creatine Kinase (30-223) U/L Troponin I High Sens (0-20) pg/ml B-Natriuretic Peptide 724 H (0-100) pg/ml Total Protein (6.0-8.3) gm/dl Albumin (3.4-5.0) gm/dl Globulin (2.5-4.0) gm/dl Albumin/Globulin Ratio (0.9-2) Lipase (11-82) U/L Urine Color Urine Appearance (Clear) Urine pH (4.5-7.5) Ur Specific [place] (1.000-1.030) Urine Protein (Negative) Urine Glucose (UA) (Negative) Urine Ketones (Negative) Urine Blood (Negative) Urine Nitrite (Negative) Urine Bilirubin (Negative) Urine Urobilinogen (Negative) Ur Leukocyte Esterase (Negative) Urine WBC (Auto) (0-5) /hpf Urine RBC (Auto) (0-4) /hpf U Hyaline Cast (Auto) (0-5) /lpf U Epithel Cells (Auto) (0-5) /lpf Urine Bacteria (Auto) (Negative) Administered Medications Sodium Chloride (Nss) 500 mls @ 125 mls/hr IV .Q4H NELLI Stop: 09/23/23 21:44 Last Admin: 08/24/23 23:30 Dose: 125 mls/hr Documented By: CONOR Discontinued Medications Ioversol (Optiray 320 100ml) 90 ml IV ONCE ONE Stop: 08/24/23 20:52 Last Admin: 08/24/23 20:51 Dose: 90 ml Documented By: ANNE-MARIE Imaging Data Radiologist's Impression: Chest X-Ray 08/24/23 15:47 SINGLE VIEW CHEST CLINICAL HISTORY: Atypical chest pain. FINDINGS: A PA chest radiograph is compared to study dated 08/13/2023. Correlation is made with abdominal CT dated 08/03/2023. The heart is enlarged noting atherosclerotic calcification of the thoracic aorta. The pulmonary vasculature is noncongested. Chronic interstitial thickening is similar to previous. There is a small right pleural effusion. No airspace consolidation typical for pneumonia is identified. No pneumothorax is seen. The skeletal structures are osteopenic. The bony thorax is grossly intact. IMPRESSION: 1. Cardiomegaly without radiographic evidence of congestive failure. 2. A small right pleural effusion is noted. This was also seen on the 08/03/[address] ACT 112: Negative or not required by law. Electronically signed by: Gamaliel Tavares M.D. 08/24/2023 4:44 PM Abdomen/Pelvis CT 08/24/23 19:14 Exam(s): CT ABDOMEN + PELVIS With Contrast IV Amt: 90 ml optiray 320 EXAM: CT Abdomen and Pelvis With Intravenous Contrast CLINICAL HISTORY: Reason for exam: jaundice. TECHNIQUE: Axial computed tomography images of the abdomen and pelvis with intravenous contrast. CTDI is 26.45 mGy and DLP is 1158.16 mGy-cm. Automated exposure control was utilized for the study. A dose lowering technique was utilized adhering to the principles of ALARA. CONTRAST: Patient received 90 ml optiray 320 of IV contrast COMPARISON: August 03, 2023 FINDINGS: Lung bases: Unremarkable. No mass. No consolidation. Pleural space: There is increase in size of a small right pleural effusion layering posteriorly measuring 3.2 cm. There is diffuse anasarca over the torso. Heart: The heart is enlarged, unchanged. ABDOMEN: Liver: Unremarkable. No mass. Gallbladder and bile ducts: Possible 6 mm gallstone within the dependent portion of a nondistended gallbladder. The small amount of surrounding fluid is likely due to the generalized edema rather than cholecystitis. No ductal dilation. Pancreas: Unremarkable. No mass. No ductal dilation. Spleen: Unremarkable. No splenomegaly. Adrenals: Unremarkable. No mass. Kidneys and ureters: Unremarkable. No solid mass. No hydronephrosis. Stomach and bowel: Unremarkable. No obstruction. No mucosal thickening. PELVIS: Appendix: The appendix is normal. Bowel loops are nondilated. No acute inflammatory changes are seen involving the bowel. Bladder: Unremarkable. No mass. Reproductive: Unremarkable as visualized. ABDOMEN and PELVIS: Intraperitoneal space: There is a small amount of free fluid in the abdomen and pelvis, similar to previous. No free air. 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 No acute fracture or dislocation is seen. Severe degenerative changes in the lumbar spine. There is moderate to severe spinal stenosis at L2-3 and L3-4 the thecal sac measuring 5-6 mm due to a combination of partially calcified posterior disc bulge and facet hypertrophy. Soft tissues: See above. Vasculature: The abdominal aorta is mildly calcified but nondilated. Lymph nodes: Unremarkable. No enlarged lymph nodes. IMPRESSION: 1. There is a small amount of free fluid in the abdomen and pelvis, similar to previous. 2. Possible 6 mm gallstone within the dependent portion of a nondistended gallbladder. The small amount of surrounding fluid is likely due to the generalized edema rather than cholecystitis. No biliary duct dilation is seen. 3. There is increase in size of a small right pleural effusion layering posteriorly measuring 3.2 cm. There is diffuse anasarca over the torso. 4. The appendix is normal. Bowel loops are nondilated. No acute inflammatory changes are seen involving the bowel. 5. Severe degenerative changes in the lumbar spine. There is moderate to severe spinal stenosis at L2-3 and L3-4 the thecal sac measuring 5-6 mm due to a combination of partially calcified posterior disc bulge and facet hypertrophy. Electronically signed by: Alexander Perez MD 08/24/23 22:06 PM Discharge Plan Visit Data Chief Complaint: Referred by Doctor Stated Complaint: REFFERED BY FOR ULTRASOUND AND BLOODWORK ED Provider: Amanda Villar Discharge Problem: Hyperbilirubinemia, Anasarca, Fall at home, CKD (chronic kidney disease) Forms Stand Alone Forms: [facility] [place] [employer] Prescriptions Prescriptions: No Action Eliquis 2.5 mg tablet 2.5 mg PO BID Qty: 180 3RF (DME) OneTouch Verio test strips Strip See Rx Instructions .Route Qty: 100 1RF Rx Instructions: Check blood sugar once a day (DME) lancets [OneTouch Delica Plus Lancet] 33 gauge misc See Rx Instructions .Route Qty: 100 1RF Rx Instructions: Check blood sugar once a day Metamucil 3.4 gram/5.4 gram powder 1 tsp PO BID Rx Instructions: mix into at least 8 oz of water or juice before administering mecobalamin (vitamin B12) 5,000 mcg tablet,disintegrating 2,500 mcg PO Q OTHER DAY Qty: 1 0RF buspirone 5 mg tablet 5 mg PO HS PRN (Reason: Anxiety) Hold Instructions: no longer takes Patient Comments: pt continues to take as needed at hs, he is unsure why this on the discontinued list. he reports taking buspirone with ropinirole for restless legs as needed at bedtime. flecainide 50 mg tablet 50 mg PO Q12H Qty: 60 2RF furosemide [Lasix] 40 mg tablet 40 mg PO DAILY PRN (Reason: edema, SOB, weight gain) Qty: 30 2RF levothyroxine 75 mcg tablet 75 mcg PO DAILYBB Ocuvite Adult 50 Plus 250 mg (90 mg-160 mg) Capsule 2 cap PO DAILY clonazepam 0.5 mg tablet 0.5 mg PO HS PRN (Reason: Insomnia) doxepin 10 mg capsule 10 mg PO HS PRN (Reason: Insomnia) atorvastatin 20 mg tablet 10 mg PO QAM Rx Instructions: 1/2 tablet at bedtime ropinirole 0.25 mg tablet 0.25 mg PO HS PRN (Reason: Restless Leg(S)) metoprolol succinate 25 mg Tablet Extended Release 24 Hr 25 mg PO QAM Qty: 30 0RF Referrals Referrals: Raffi Alva MD [Primary Care Provider] -
--- NOTE | 2023-08-24 22:07 | CT Scan Report ---
Exam(s): CT ABDOMEN + PELVIS With Contrast IV Amt: 90 ml optiray 320 EXAM: CT Abdomen and Pelvis With Intravenous Contrast CLINICAL HISTORY: Reason for exam: jaundice. TECHNIQUE: Axial computed tomography images of the abdomen and pelvis with intravenous contrast. CTDI is 26.45 mGy and DLP is 1158.16 mGy-cm. Automated exposure control was utilized for the study. A dose lowering technique was utilized adhering to the principles of ALARA. CONTRAST: Patient received 90 ml optiray 320 of IV contrast COMPARISON: August 03, 2023 FINDINGS: Lung bases: Unremarkable. No mass. No consolidation. Pleural space: There is increase in size of a small right pleural effusion layering posteriorly measuring 3.2 cm. There is diffuse anasarca over the torso. Heart: The heart is enlarged, unchanged. ABDOMEN: Liver: Unremarkable. No mass. Gallbladder and bile ducts: Possible 6 mm gallstone within the dependent portion of a nondistended gallbladder. The small amount of surrounding fluid is likely due to the generalized edema rather than cholecystitis. No ductal dilation. Pancreas: Unremarkable. No mass. No ductal dilation. Spleen: Unremarkable. No splenomegaly. Adrenals: Unremarkable. No mass. Kidneys and ureters: Unremarkable. No solid mass. No hydronephrosis. Stomach and bowel: Unremarkable. No obstruction. No mucosal thickening. PELVIS: Appendix: The appendix is normal. Bowel loops are nondilated. No acute inflammatory changes are seen involving the bowel. Bladder: Unremarkable. No mass. Reproductive: Unremarkable as visualized. ABDOMEN and PELVIS: Intraperitoneal space: There is a small amount of free fluid in the abdomen and pelvis, similar to previous. No free air. 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 No acute fracture or dislocation is seen. Severe degenerative changes in the lumbar spine. There is moderate to severe spinal stenosis at L2-3 and L3-4 the thecal sac measuring 5-6 mm due to a combination of partially calcified posterior disc bulge and facet hypertrophy. Soft tissues: See above. Vasculature: The abdominal aorta is mildly calcified but nondilated. Lymph nodes: Unremarkable. No enlarged lymph nodes. IMPRESSION: 1. There is a small amount of free fluid in the abdomen and pelvis, similar to previous. 2. Possible 6 mm gallstone within the dependent portion of a nondistended gallbladder. The small amount of surrounding fluid is likely due to the generalized edema rather than cholecystitis. No biliary duct dilation is seen. 3. There is increase in size of a small right pleural effusion layering posteriorly measuring 3.2 cm. There is diffuse anasarca over the torso. 4. The appendix is normal. Bowel loops are nondilated. No acute inflammatory changes are seen involving the bowel. 5. Severe degenerative changes in the lumbar spine. There is moderate to severe spinal stenosis at L2-3 and L3-4 the thecal sac measuring 5-6 mm due to a combination of partially calcified posterior disc bulge and facet hypertrophy. Electronically signed by: Alexander Perez MD 08/24/23 22:06 PM
[2023-08-24] MEDS: SODIUM CHLORIDE 0.9% 500 ML IV SCH (23:30)
--- NOTE | 2023-08-24 23:31 | History & Physical Report ---
Date of Service August 24, 2023 Assessment & Plan (1) Right heart failure: Plan: Acute on chronic right sided heart failure. Patient presenting with progressive edema and NAJERA. Adequate oxygenation on room air. -Admit to medical with telemetry -Gentle diuresis with Lasix 20mg IV daily -Monitor I/Os, daily weights, renal function and electrolytes in response to diuresis (2) Paroxysmal A-fib: Plan: Chronic. Stable -Continue Apixaban 2.5mg po BID -Continue Flecainide -Bowel regimen - Colace 100mg po BID, Miralax BID PRN - patient reports significant constipation with Flecainide -Continue Metoprolol (3) CKD (chronic kidney disease): Plan: BUN and Cr are improved form prior. Currently 47 and 1.66 -Avoid nephrotoxic agents -Renal dosing where needed -Monitor closely with Lasix use (4) Hypothyroidism: Plan: Chronic. Elevated TSH at last visit -Check TSH -Continue Synthroid (5) Type 2 diabetes mellitus: Plan: Chronic. Last ArbO6I=2.9 in June 2023. Patient is not on any medications. -CC diet -ISS coverage as needed, goal blood sugar 110 - 180 (6) Hypertension: Plan: Chronic. Well controlled -Continue metoprolol History of Present Illness Chief Complaint: edema and shortness of breath Primary Care Provider: Raffi Alva MD Maxwell Encinas is an 88yo male with history of HTN, HLP, DM, right sided chronic heart failure as well as atrial flutter on Apixaban anticoagulation and Flecainide as well as bilateral breast cancer s/p lumpectomy and right mastectomy presenting with shortness of breath. Patient was admitted to [facility] from 08/13/23 - 08/17/23 after presenting with SOB and weakness as well as hyperkalemia, hyponatremia and APPLE thought to be secondary to cardiorenal syndrome. Patient was given IVF with improvement in Cr to 1.78. Patient was discharged home. He reports ongoing bilateral LE edema as well as NAJERA. He was seen by his PCP today for routine followup and sent in for concern for SOB. Recently established with CHF clinic - started weighing himself daily. Reports he did gain 1.2# over the last day. Ongoing generalized weakness - patient needs to crawl to get up the stairs. Allergies Allergy/AdvReac Type Severity Reaction Status Date / Time Sulfa (Sulfonamide Allergy Intermediate HIVES Verified 08/24/23 14:24 Antibiotics) Home Medications Medication Instructions Recorded Confirmed Type psyllium husk 3.4 gram/5.4 gram 1 tsp PO BID 10/22/21 08/24/23 History oral powder (Metamucil) apixaban 2.5 mg tablet (Eliquis) 2.5 mg PO BID #180 tabs 12/12/22 08/24/23 Rx mecobalamin (vitamin B12) 5,000 2,500 mcg (1/2 x 5,000 mcg) PO Q 03/29/23 08/24/23 Rx mcg disintegrating tablet OTHER DAY #1 tab atorvastatin 20 mg tablet 10 mg PO QAM 07/13/23 08/24/23 History flecainide 50 mg tablet 50 mg PO Q12H #60 tabs 07/27/23 08/24/23 Rx buspirone 5 mg tablet 5 mg PO HS PRN Anxiety 08/07/23 08/24/23 History ropinirole 0.25 mg tablet 0.25 mg PO HS PRN Restless Leg(S) 08/13/23 08/24/23 History metoprolol succinate 25 mg 25 mg PO QAM #30 tabs 08/17/23 08/24/23 Rx tablet,extended release 24 hr blood sugar diagnostic [facility] 08/18/23 08/24/23 Rx Verio test strips) lancets 33 gauge ([facility]ica [facility] ea 08/18/23 08/24/23 Rx Plus Lancet) furosemide 40 mg tablet (Lasix) 40 mg PO DAILY PRN edema, SOB, 08/22/23 08/24/23 Rx weight gain #30 tabs clonazepam 0.5 mg tablet 0.5 mg PO HS PRN Insomnia 08/24/23 08/24/23 History doxepin 10 mg capsule 10 mg PO HS PRN Insomnia 08/24/23 08/24/23 History levothyroxine 75 mcg tablet 75 mcg PO DAILYBB 08/24/23 08/24/23 History [id number] 250 mg-dha 90 2 cap PO DAILY 08/24/23 08/24/23 History mg-epa 160 [id number] capsule (Ocuvite Adult 50 Plus) Past Med/Surg History Medical History Non-ST elevation TN (NSTEMI) Hypothyroidism Right heart failure History of cardioversion 07/18/23, [facility] Anticoagulant long-term use eliquis History of anesthesia reaction reports constipation, sleep disturbances and vission changes x 1 year following removal of loose body LLE 2000 History of gout Pancreatic cyst Constipation IBS (irritable bowel syndrome) DM type 2 (diabetes mellitus, type 2) diet controlled, no meds HLD (hyperlipidemia) Atrial flutter hx of Hypertension Chronic kidney disease, stage III (moderate) follows with Dr. 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 Monae--on BB and eliquis Benign essential hypertension Surgical History History of lymph node excision 01/2023 off right chest H/O left mastectomy History of surgery removal loose body x 2 LLE History of cataract surgery History of left hip replacement History of right hip replacement History of right mastectomy History of colonoscopy Family History Other No family history of adverse response to anesthesia Denies family history of Ovarian cancer Prostate cancer Breast cancer Lung cancer Colorectal cancer Social History Smoking Status: Never smoker Second Hand Exposure: No; Do You Dip or Chew Tobacco: No; Hx Alcohol Use: Yes Alcohol type: beer and wine Hx Substance Use: No Preferred Language: [place]ian Communication Ability: Effective Cobbler Apprentice Required: No Beliefs That Will Affect Care: None marital status: / Current Living Situation: Alone 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 How many Children do You have Comment: one son Feels Safe at Home: Yes Seatbelt Use: always Sunscreen Use: No Assistive Devices: Glasses Review of Systems Review of Systems: All systems reviewed & are unremarkable except as noted in HPI & below Physical Exam Physical Exam: General: patient resting comfortably, NAD, non-toxic in appearance, AA&O x 4 Skin: warm, dry, extensive bruising on left side from recent fall, skin tear on left forearm HEENT: NC/AT, PERRL, EOMI, anicteric sclera, conjunctiva without injection, external ear normal to inspection and nontender, nares patent, moist mucus memb ranes, dentition intact, no oropharyngeal lesions, neck supple, trachea midline, no LAD, no thyromegaly, no JVD Heart: +S1/S2, regular, no m/r/g Lungs: equal air entry bilaterally, no rales/rhonchi/wheezes Abd: +BS, soft, NT/ND, no masses/organomegaly/ascites Ext: warm, 2+ pulses in UE/LE bilaterally, no clubbing/cyanosis, 2+ pitting edema of bilateral LE Neuro: nonfocal, patient AA&O x 4, speech intact, no facial droop, moving all extremities on command with equal strength 5/5 Results & Data Results & Data Vital Signs (Past 12 Hours) Vital Signs Pulse Pulse Resp BP BP Pulse Ox O2 Del Method 08/24/23 23:00 69 17 129/74 100 08/24/23 22:02 66 08/24/23 22:00 72 12 128/76 99 08/24/23 21:00 126/85 95 08/24/23 20:00 65 12 134/78 99 08/24/23 19:00 64 17 135/81 100 08/24/23 18:57 Room Air 08/24/23 18:57 89 20 134/86 100 Room Air 08/24/23 18:08 68 08/24/23 15:42 73 19 130/70 97 Room Air Laboratory Results Laboratory Results WBC 9.17 K/ul (4.8-10.8) 08/24/23 15:55 RBC 2.82 M/uL (4.70-6.10) L 08/24/23 15:55 Hgb 9.0 g/dl (14.0-18.0) L 08/24/23 15:55 Hct 27.4 % (42.0-52.0) L 08/24/23 15:55 MCV 97.2 fL (80.0-100.0) 08/24/23 15:55 MCH 31.9 pg (25.0-34.0) 08/24/23 15:55 MCHC 32.8 g/dL (32.0-36.0) 08/24/23 15:55 RDW Std Deviation 61.2 fL (36.4-46.3) H 08/24/23 15:55 RDW Coeff of Gilbert 17.7 % (11.5-14.5) H 08/24/23 15:55 Plt Count 122 K/uL (130-400) L 08/24/23 15:55 MPV 9.5 fL (9.4-12.4) 08/24/23 15:55 Immature Gran % (Auto) 1.7 % 08/24/23 15:55 Neut % (Auto) 76.3 % 08/24/23 15:55 Lymph % (Auto) 10.4 % 08/24/23 15:55 [place] % (Auto) 10.5 % 08/24/23 15:55 Eos % (Auto) 0.8 % 08/24/23 15:55 Baso % (Auto) 0.3 % 08/24/23 15:55 Neut # (Auto) 7.00 K/uL (1.40-6.50) H 08/24/23 15:55 Lymph # (Auto) 0.95 K/uL (1.20-3.40) L 08/24/23 15:55 [place]ander # (Auto) 0.96 K/uL (0.11-0.59) H 08/24/23 15:55 Eos # (Auto) 0.07 K/uL (0.00-0.50) 08/24/23 15:55 Baso # (Auto) 0.03 K/uL (0.00-0.20) 08/24/23 15:55 Immature Gran # (Auto) 0.16 K/uL (0.01-0.20) 08/24/23 15:55 PT 13.0 Seconds (9.0-12.0) H 08/24/23 15:55 INR 1.2 (0.9-1.1) H 08/24/23 15:55 APTT 32 Seconds (21-31) H 08/24/23 15:55 PTT Ratio 1.1 08/24/23 15:55 Sodium 129 mmol/L (136-145) L 08/24/23 15:55 Potassium 4.6 mmol/L (3.5-5.1) 08/24/23 15:55 Chloride 98 mmol/L (98-107) 08/24/23 15:55 Carbon Dioxide 22 mmol/L (21-32) 08/24/23 15:55 Anion Gap 9 (3-11) 08/24/23 15:55 BUN 47 mg/dl (6-23) H 08/24/23 15:55 Creatinine 1.66 mg/dl (0.6-1.4) H 08/24/23 15:55 Est Cr Clr Drug Dosing Not Reportable 08/24/23 15:55 Est GFR ( Amer) 42.0 ml/min 08/24/23 15:55 Est GFR (Non-Af Amer) 36.3 ml/min 08/24/23 15:55 BUN/Creatinine Ratio 28.3 (10-20) H 08/24/23 15:55 Glucose 119 mg/dl (70-99(Fasting)) H 08/24/23 15:55 Calcium 9.0 mg/dl (8.6-10.3) 08/24/23 15:55 Phosphorus 3.5 mg/dl (2.5-4.9) 08/24/23 15:55 Magnesium 2.3 mg/dl (1.7-2.4) 08/24/23 15:55 Total Bilirubin 3.3 mg/dl (0.2-1.0) H 08/24/23 15:55 AST 46 U/L (13-39) H 08/24/23 15:55 ALT 26 U/L (7-52) 08/24/23 15:55 Alkaline Phosphatase 83 U/L (34-104) 08/24/23 15:55 Total Creatine Kinase 69 U/L (30-223) 08/24/23 15:55 Troponin I High Sens 102.2 pg/ml (0-20) H* 08/24/23 17:48 B-Natriuretic Peptide 724 pg/ml (0-100) H 08/24/23 22:53 Total Protein 6.6 gm/dl (6.0-8.3) 08/24/23 15:55 Albumin 4.1 gm/dl (3.4-5.0) 08/24/23 15:55 Globulin 2.5 gm/dl (2.5-4.0) 08/24/23 15:55 Albumin/Globulin Ratio 1.6 (0.9-2) 08/24/23 15:55 Lipase 144 U/L (11-82) H 08/24/23 15:55 Urine Color Yellow 08/24/23 19:50 Urine Appearance Clear (Clear) 08/24/23 19:50 Urine pH 5.5 (4.5-7.5) 08/24/23 19:50 Ur Specific [place] 1.013 (1.000-1.030) 08/24/23 19:50 Urine Protein 1+ (Negative) H 08/24/23 19:50 Urine Glucose (UA) Negative (Negative) 08/24/23 19:50 Urine Ketones Negative (Negative) 08/24/23 19:50 Urine Blood Negative (Negative) 08/24/23 19:50 Urine Nitrite Negative (Negative) 08/24/23 19:50 Urine Bilirubin Negative (Negative) 08/24/23 19:50 Urine Urobilinogen Negative (Negative) 08/24/23 19:50 Ur Leukocyte Esterase Negative (Negative) 08/24/23 19:50 Urine WBC (Auto) 1-5 /hpf (0-5) 08/24/23 19:50 Urine RBC (Auto) 0-4 /hpf (0-4) 08/24/23 19:50 U Hyaline Cast (Auto) 0 /lpf (0-5) 08/24/23 19:50 U Epithel Cells (Auto) 0-5 /lpf (0-5) 08/24/23 19:50 Urine Bacteria (Auto) Negative (Negative) 08/24/23 19:50 Impressions Chest X-Ray 08/24/23 15:47 SINGLE VIEW CHEST CLINICAL HISTORY: Atypical chest pain. FINDINGS: A PA chest radiograph is compared to study dated 08/13/2023. Correlati on is made with abdominal CT dated 08/03/2023. The heart is enlarged noting atherosclerotic calcification of the thoracic aorta. The pulmonary vasculature is noncongested. Chronic interstitial thickening is similar to previous. There is a small right pleural effusion. No airspace consolidation typical for pneumonia is identified. No pneumothorax is seen. The skeletal structures are osteopenic. The bony thorax is grossly intact. IMPRESSION: 1. Cardiomegaly without radiographic evidence of congestive failure. 2. A small right pleural effusion is noted. This was also seen on the 08/03/[address] ACT 112: Negative or not required by law. Electronically signed by: Gamaliel Tavares M.D. 08/24/2023 4:44 PM Abdomen/Pelvis CT 08/24/23 19:14 Exam(s): CT ABDOMEN + PELVIS With Contrast IV Amt: 90 ml optiray 320 EXAM: CT Abdomen and Pelvis With Intravenous Contrast CLINICAL HISTORY: Reason for exam: jaundice. TECHNIQUE: Axial computed tomography images of the abdomen and pelvis with intravenous contrast. CTDI is 26.45 mGy and DLP is 1158.16 mGy-cm. Automated exposure control was utilized for the study. A dose lowering technique was utilized adhering to the principles of ALARA. CONTRAST: Patient received 90 ml optiray 320 of IV contrast COMPARISON: August 03, 2023 FINDINGS: Lung bases: Unremarkable. No mass. No consolidation. Pleural space: There is increase in size of a small right pleural effusion layering posteriorly measuring 3.2 cm. There is diffuse anasarca over the torso. Heart: The heart is enlarged, unchanged. ABDOMEN: Liver: Unremarkable. No mass. Gallbladder and bile ducts: Possible 6 mm gallstone within the dependent portion of a nondistended gallbladder. The small amount of surrounding fluid is likely due to the generalized edema rather than cholecystitis. No ductal dilation. Pancreas: Unremarkable. No mass. No ductal dilation. Spleen: Unremarkable. No splenomegaly. Adrenals: Unremarkable. No mass. Kidneys and ureters: Unremarkable. No solid mass. No hydronephrosis. Stomach and bowel: Unremarkable. No obstruction. No mucosal thickening. PELVIS: Appendix: The appendix is normal. Bowel loops are nondilated. No acute inflammatory changes are seen involving the bowel. Bladder: Unremarkable. No mass. Reproductive: Unremarkable as visualized. ABDOMEN and PELVIS: Intraperitoneal space: There is a small amount of free fluid in the abdomen and pelvis, similar to previous. No free air. 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 No acute fracture or dislocation is seen. Severe degenerative changes in the lumbar spine. There is moderate to severe spinal stenosis at L2-3 and L3-4 the thecal sac measuring 5-6 mm due to a combination of partially calcified posterior disc bulge and facet hypertrophy. Soft tissues: See above. Vasculature: The abdominal aorta is mildly calcified but nondilated. Lymph nodes: Unremarkable. No enlarged lymph nodes. IMPRESSION: 1. There is a small amount of free fluid in the abdomen and pelvis, similar to previous. 2. Possible 6 mm gallstone within the dependent portion of a nondistended gallbladder. The small amount of surrounding fluid is likely due to the generalized edema rather than cholecystitis. No biliary duct dilation is seen. 3. There is increase in size of a small right pleural effusion layering posteriorly measuring 3.2 cm. There is diffuse anasarca over the torso. 4. The appendix is normal. Bowel loops are nondilated. No acute inflammatory changes are seen involving the bowel. 5. Severe degenerative changes in the lumbar spine. There is moderate to severe spinal stenosis at L2-3 and L3-4 the thecal sac measuring 5-6 mm due to a combination of partially calcified posterior disc bulge and facet hypertrophy. Electronically signed by: Alexander Perez MD 08/24/23 22:06 PM PG Care Time/CCT Total # of Minutes Spent Total Time Spent with Patient: Total time spent is greater than 50% in coordination of care (as documented) at patient's floor/unit and/or counseling patient: Coding Level of Care Code 64942 INT INP/OBS CARE 3/75MIN Diagnoses Right heart failure I50.810 Paroxysmal A-fib I48.0 CKD (chronic kidney disease) N18.9 Hypothyroidism E03.9 Type 2 diabetes mellitus E11.9 Primary hypertension I10 Hypertension type: primary hypertension (6) Hypertension Hypertension type: primary hypertension Qualified Code(s): I10 - Essential (primary) hypertension
[2023-08-25] MEDS ORDERED: rOPINIRole HCL 0.25 MG TABLET PO PRN (00:31)
[2023-08-25] MEDS ORDERED: ONDANSETRON INJ 2 MG/ML 2 ML VIAL IV PRN (00:31)
[2023-08-25] MEDS ORDERED: busPIRone 5 MG TAB PO PRN (00:31)
[2023-08-25] MEDS ORDERED: ACETAMINOPHEN 325 MG TAB PO PRN (00:31)
[2023-08-25] MEDS ORDERED: DEXTROSE 50% 50 ML SYRINGE IV PRN (00:31)
[2023-08-25] MEDS ORDERED: GLUCOSE 10 TAB/TUBE PO PRN (00:31)
[2023-08-25] MEDS ORDERED: DOXEPIN HCL 10 MG CAPSULE PO PRN (00:31)
[2023-08-25] MEDS ORDERED: GLUCOSE 40% GEL 15 GM TUBE PO PRN (00:31)
[2023-08-25] MEDS ORDERED: GLUCAGON FOR INJ 1 MG VIAL SQ PRN (00:31)
[2023-08-25] MEDS ORDERED: CARBOHYDRATES FOR HYPOGLYCEMIA PO PRN (00:31)
[2023-08-25 00:56] LABS: Magnesium 2.3 mg/dl (1.7-2.4)
[2023-08-25 01:01] LABS: Phosphorus 3.5 mg/dl (2.5-4.9)
[2023-08-25 01:23] LABS: Thyroid Stimulating Hormone 7.555 uIu/ml (0.300-4.500)
[2023-08-25 02:02] LABS: T4 Free Thyroxine 1.32 ng/dl (0.61-1.60)
[2023-08-25 03:37] LABS: Hematocrit (blood only) 25.2 % (42.0-52.0); Hemoglobin 8.2 g/dl (14.0-18.0); Mean Corpuscular Hemoglobin 31.9 pg (25.0-34.0); Mean Corpuscular Hgb Conc 32.5 g/dL (32.0-36.0); Mean Corpuscular Volume 98.1 fL (80.0-100.0); Mean Platelet Volume 9.4 fL (9.4-12.4); Platelet Count 101 K/uL (130-400); RDW Standard Deviation 62.2 fL (36.4-46.3); Red Blood Count 2.57 M/uL (4.70-6.10); White Blood Count 7.21 K/ul (4.8-10.8)
[2023-08-25 03:53] LABS: Albumin Level 3.6 gm/dl (3.4-5.0); BUN Creatinine Ratio 25.9 (10-20); Bilirubin Direct 0.9 mg/dl (0-0.2); Bilirubin,Total 2.8 mg/dl (0.2-1.0); Calcium 8.5 mg/dl (8.6-10.3); Creatinine Clr Calc Pharmacy 33.8 ml/min; Est GFR (Non-African American) 36.3 ml/min; Potassium 4.2 mmol/L (3.5-5.1); Total Protein 5.7 gm/dl (6.0-8.3)
[2023-08-25] MEDS: clonazePAM 0.5 MG TAB PO PRN (04:02)
[2023-08-25] MEDS: LEVOTHYROXINE SODIUM 75 MCG TABLET PO SCH (06:26)
[2023-08-25] MEDS: APIXABAN 2.5 MG TAB PO SCH (08:08)
[2023-08-25] MEDS: DOCUSATE SODIUM 100 MG CAP PO SCH (08:08)
[2023-08-25] MEDS: ATORVASTATIN 10 MG TAB PO SCH (08:08)
[2023-08-25] MEDS: METOPROLOL SUCC 25MG EXT REL TAB PO SCH (08:08)
[2023-08-25] MEDS: FLECAINIDE ACETATE 100 MG TABLET PO SCH (08:09)
[2023-08-25] MEDS: FUROSEMIDE INJ 20 MG/2 ML VIAL IV SCH (08:09)
[2023-08-25] MEDS: INSULIN ASPART PER UNIT CHARGE SC SCH (08:24)
--- NOTE | 2023-08-25 17:10 | Hospitalist Progress Note ---
Date of Service August 25, 2023 Assessment & Plan (1) Right heart failure: Plan: Acute on chronic right sided heart failure. Patient presenting with progressive edema and NAJERA. Adequate oxygenation on room air. -Gentle diuresis with Lasix 20mg IV daily -Monitor I/Os, daily weights, renal function and electrolytes in response to diuresis (2) Paroxysmal A-fib: Plan: Chronic. Stable -Continue Apixaban 2.5mg po BID -Continue Flecainide -Bowel regimen - Colace 100mg po BID, Miralax BID PRN - patient reports significant constipation with Flecainide -Continue Metoprolol (3) CKD (chronic kidney disease): Plan: BUN and Cr are improved form prior. Currently 43 and 1.66 -Avoid nephrotoxic agents -Renal dosing where needed -Monitor closely with Lasix use (4) Hypothyroidism: Plan: Chronic. Elevated TSH at last visit -Check TSH -Continue Synthroid (5) Type 2 diabetes mellitus: Plan: Chronic. Last BepD6N=5.9 in June 2023. Patient is not on any medications. -CC diet -ISS coverage as needed, goal blood sugar 110 - 180 (6) Hypertension: Plan: Chronic. Well controlled -Continue metoprolol Admission and Anticipated Discharge Date Admission Date: August 24, 2023 Subjective Patient says that he is feeling better with decreased edema, improvement in breathing. He does have a lot of complaints about constipation. Review of Systems Review of Systems: All systems reviewed & are unremarkable except as noted in Subjective Physical Exam Physical Exam: General: Awake, conversant Heart: S1, S2/regular rate and rhythm, no murmur rubs or gallops Lungs: Clear to auscultation bilaterally. Normal effort Abdomen: Soft/nontender/nondistended. No hepatosplenomegaly Extremities: No clubbing/cyanosis. 1+ pitting bilateral edema Behavior: Appropriate, cooperative Results & Data Results & Data Vital Signs (Past 12 Hours) Vital Signs Temp Pulse Pulse Resp BP BP Pulse Ox 08/25/23 16:00 19 08/25/23 16:00 122/81 08/25/23 15:00 105/61 08/25/23 15:00 20 08/25/23 14:00 112/71 08/25/23 14:00 69 21 08/25/23 13:01 74 20 08/25/23 13:01 127/70 08/25/23 13:00 71 21 08/25/23 12:50 67 19 08/25/23 12:50 112/63 08/25/23 12:00 68 24 08/25/23 11:02 75 16 08/25/23 11:02 128/70 08/25/23 11:00 77 16 08/25/23 10:57 119/61 08/25/23 10:53 75 19 08/25/23 10:53 122/65 08/25/23 10:51 76 22 08/25/23 10:51 99/79 L 08/25/23 10:38 70 24 08/25/23 10:38 113/68 08/25/23 10:00 71 20 08/25/23 09:00 68 08/25/23 08:07 64 14 08/25/23 08:07 98/70 L 08/25/23 08:06 36.6 C 64 16 98/70 L 96 08/25/23 08:00 64 19 08/25/23 07:16 63 08/25/23 07:00 60 15 08/25/23 06:00 65 18 O2 Del Method 08/25/23 16:00 08/25/23 16:00 08/25/23 15:00 08/25/23 15:00 08/25/23 14:00 08/25/23 14:00 08/25/23 13:01 08/25/23 13:01 08/25/23 13:00 08/25/23 12:50 08/25/23 12:50 08/25/23 12:00 08/25/23 11:02 08/25/23 11:02 08/25/23 11:00 08/25/23 10:57 08/25/23 10:53 08/25/23 10:53 08/25/23 10:51 08/25/23 10:51 08/25/23 10:38 08/25/23 10:38 08/25/23 10:00 08/25/23 09:00 08/25/23 08:07 08/25/23 08:07 08/25/23 08:06 Room Air 08/25/23 08:00 08/25/23 07:16 08/25/23 07:00 08/25/23 06:00 PG Care Time/CCT Total # of Minutes Spent Total Time Spent with Patient: Total time spent is greater than 50% in coordination of care (as documented) at patient's floor/unit and/or counseling patient: Coding Level of Care Code 30447 SUB INP/OBS CARE 2/35MIN Diagnoses Right heart failure I50.810 Paroxysmal A-fib I48.0 CKD (chronic kidney disease) N18.9 Hypothyroidism E03.9 Type 2 diabetes mellitus E11.9 Primary hypertension I10 Hypertension type: primary hypertension (6) Hypertension Hypertension type: primary hypertension Qualified Code(s): I10 - Essential (primary) hypertension
--- NOTE | 2023-08-26 07:09 | Electrocardiogram Report ---
Test Reason : Blood Pressure : / mmHG Vent. Rate : 072 BPM Atrial Rate : 000 BPM P-R Int : 000 ms QRS Dur : 110 ms QT Int : 396 ms P-R-T Axes : 000 020 165 degrees QTc Int : 433 ms Sinus rhythm Nonspecific T wave abnormality Abnormal ECG When compared with ECG of 13-AUG-2023 13:36, Inferior T wave abnormality now present Confirmed by Yordan Monae ([id number]) on 08/26/2023 7:09:12 AM Referred By: Confirmed By:Yordan Monae
[2023-08-26 08:34] LABS: Hematocrit (blood only) 25.4 % (42.0-52.0); Hemoglobin 8.1 g/dl (14.0-18.0); Mean Corpuscular Hemoglobin 31.4 pg (25.0-34.0); Mean Corpuscular Hgb Conc 31.9 g/dL (32.0-36.0); Mean Corpuscular Volume 98.4 fL (80.0-100.0); Mean Platelet Volume 9.4 fL (9.4-12.4); Platelet Count 100 K/uL (130-400); RDW Coefficient of Variation 18.4 % (11.5-14.5); RDW Standard Deviation 63.6 fL (36.4-46.3); Red Blood Count 2.58 M/uL (4.70-6.10); White Blood Count 7.21 K/ul (4.8-10.8)
[2023-08-26 08:49] LABS: Calcium 8.3 mg/dl (8.6-10.3); Creatinine Clr Calc Pharmacy 33.4 ml/min; Est GFR (African American) 41.4 ml/min; Est GFR (Non-African American) 35.7 ml/min; Potassium 4.2 mmol/L (3.5-5.1)
[2023-08-26] MEDS ORDERED: DOCUSATE SODIUM 100 MG CAP PO SCH (09:00)
--- NOTE | 2023-08-26 13:22 | Hospitalist Progress Note ---
Date of Service August 26, 2023 Assessment & Plan (1) Right heart failure: Plan: Acute on chronic right sided heart failure. Patient presenting with progressive edema and NAJERA. Adequate oxygenation on room air. -Gentle diuresis with Lasix 20mg IV daily Patient continues to improve with improving weight -Monitor I/Os, daily weights, renal function and electrolytes in response to diuresis (2) Paroxysmal A-fib: Plan: Chronic. Stable -Continue Apixaban 2.5mg po BID -Continue Flecainide -Bowel regimen - Colace 100mg po BID, Miralax BID PRN - patient reports significant constipation with Flecainide -Continue Metoprolol (3) CKD (chronic kidney disease): Plan: BUN and Cr are improved form prior. Currently 47 and 1.68 -Avoid nephrotoxic agents -Renal dosing where needed -Monitor closely with Lasix use (4) Hypothyroidism: Plan: Chronic. Elevated TSH at last visit -Check TSH -Continue Synthroid (5) Type 2 diabetes mellitus: Plan: Chronic. Last XiuI2P=9.9 in June 2023. Patient is not on any medications. -CC diet -ISS coverage as needed, goal blood sugar 110 - 180 (6) Hypertension: Plan: Chronic. Well controlled -Continue metoprolol Plan PT/OT and case management involved. Patient may need placement Admission and Anticipated Discharge Date Admission Date: August 24, 2023 Subjective Patient says that he had a bowel movement yesterday but it was not "enough". He says that he is "peeing out quite a bit". Review of Systems Review of Systems: All systems reviewed & are unremarkable except as noted in Subjective Physical Exam Physical Exam: General: Awake, conversant Heart: S1, S2/regular rate and rhythm, no murmur rubs or gallops Lungs: Diminished breath sounds at the bases bilaterally. Normal effort Abdomen: Soft/nontender/nondistended. No hepatosplenomegaly Extremities: No clubbing/cyanosis. 1+ pitting bilateral edema Behavior: Appropriate, cooperative Results & Data Results & Data Vital Signs (Past 12 Hours) Vital Signs Temp Pulse Resp BP Pulse Ox O2 Del Method 08/26/23 10:59 36.3 C L 74 18 114/71 98 Room Air 08/26/23 08:12 36.3 C L 69 18 110/54 L 95 Room Air 04/06/24 04:05 35.4 C L 73 20 119/67 95 Room Air Laboratory Results Abnormal lab results 08/25/23 08/25/23 08/26/23 Range/Units 17:32 20:54 08:14 RBC 2.58 L (4.70-6.10) M/uL Hgb 8.1 L (14.0-18.0) g/dl Hct 25.4 L (42.0-52.0) % MCHC 31.9 L (32.0-36.0) g/dL RDW Std Deviation 63.6 H (36.4-46.3) fL RDW Coeff of Gilbert 18.4 H (11.5-14.5) % Plt Count 100 L (130-400) K/uL Sodium 134 L (136-145) mmol/L BUN 47 H (6-23) mg/dl Creatinine 1.68 H (0.6-1.4) mg/dl BUN/Creatinine Ratio 28.0 H (10-20) POC Glucose 122 H 108 H (70-99) mg/dl Calcium 8.3 L (8.6-10.3) mg/dl 08/26/23 Range/Units 12:40 RBC (4.70-6.10) M/uL Hgb (14.0-18.0) g/dl Hct (42.0-52.0) % MCHC (32.0-36.0) g/dL RDW Std Deviation (36.4-46.3) fL RDW Coeff of Gilbert (11.5-14.5) % Plt Count (130-400) K/uL Sodium (136-145) mmol/L BUN (6-23) mg/dl Creatinine (0.6-1.4) mg/dl BUN/Creatinine Ratio (10-20) POC Glucose 185 H (70-99) mg/dl Calcium (8.6-10.3) mg/dl PG Care Time/CCT Total # of Minutes Spent Total Time Spent with Patient: Total time spent is greater than 50% in coordination of care (as documented) at patient's floor/unit and/or counseling patient: Coding Level of Care Code 84379 SUB INP/OBS CARE 2/35MIN Diagnoses Right heart failure I50.810 Paroxysmal A-fib I48.0 CKD (chronic kidney disease) N18.9 Hypothyroidism E03.9 Type 2 diabetes mellitus E11.9 Primary hypertension I10 Hypertension type: primary hypertension (6) Hypertension Hypertension type: primary hypertension Qualified Code(s): I10 - Essential (primary) hypertension
[2023-08-26] MEDS: POLYETHYLENE (MIRALAX) 17 GM PACK PO PRN (21:12)
[2023-08-27 09:01] LABS: BUN Creatinine Ratio 29.1 (10-20); Calcium 8.4 mg/dl (8.6-10.3); Creatinine Clr Calc Pharmacy 37.9 ml/min; Est GFR (African American) 48.3 ml/min; Est GFR (Non-African American) 41.6 ml/min; Potassium 4.5 mmol/L (3.5-5.1)
--- NOTE | 2023-08-27 12:31 | Hospitalist Progress Note ---
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 Patient presenting with progressive edema and NAJERA. Adequate oxygenation on room air. -Gentle diuresis with Lasix 20mg IV daily Patient continues to improve with improving weight Creatinine improving as well. Creatinine is at 1.48, down from 1.6 on admission -Monitor I/Os, daily weights, renal function and electrolytes in response to diu resis (2) Paroxysmal A-fib: Plan: Chronic. Stable -Continue Apixaban 2.5mg po BID -Continue Flecainide -Bowel regimen - Colace 100mg po BID, Miralax BID PRN - patient reports significant constipation with Flecainide. Ordered Dulcolax suppository today -Continue Metoprolol (3) CKD (chronic kidney disease): Plan: BUN and Cr are improved form prior. Currently 43 and 1.48 -Avoid nephrotoxic agents -Renal dosing where needed -Monitor closely with Lasix use Renal function stable with diuretic therapy (4) Hypothyroidism: Plan: Chronic. Elevated TSH at last visit -Check TSH -Continue Synthroid (5) Type 2 diabetes mellitus: Plan: Chronic. Last [id number]=3.9 in June 2023. Patient is not on any medications. -CC diet -ISS coverage as needed, goal blood sugar 110 - 180 (6) Hypertension: Plan: Chronic. Well controlled -Continue metoprolol Plan PT/OT and case management involved. Patient may need placement Admission and Anticipated Discharge Date Admission Date: August 24, 2023 Subjective Patient is breathing well. Leg swelling improving. He is still fixated about his constipation. Asking for enema. Ordered a suppository today. Has had bowel movements during this hospital stay but has not had "enough" out. Review of Systems Review of Systems: All systems reviewed & are unremarkable except as noted in Subjective Physical Exam Physical Exam: General: Awake, conversant Heart: S1, S2/regular rate and rhythm, no murmur rubs or gallops Lungs: Diminished breath sounds at the bases bilaterally. Normal effort Abdomen: Soft/nontender/nondistended. No hepatosplenomegaly Extremities: No clubbing/cyanosis. 1+ pitting bilateral edema Behavior: Appropriate, cooperative Results & Data Results & Data Vital Signs (Past 12 Hours) Vital Signs Temp Pulse Pulse Resp BP Pulse Ox O2 Del Method 08/27/23 11:47 36.5 C 75 16 112/50 L 99 Room Air 08/27/23 09:34 79 08/27/23 08:30 36.7 C 77 16 101/55 L 97 Room Air 08/27/23 03:13 36.6 C 78 20 104/52 L 97 Room Air Laboratory Results Abnormal lab results 08/26/23 08/26/23 08/26/23 Range/Units 12:40 17:08 20:16 Sodium (136-145) mmol/L BUN (6-23) mg/dl Creatinine (0.6-1.4) mg/dl BUN/Creatinine Ratio (10-20) POC Glucose 185 H 124 H 107 H (70-99) mg/dl Calcium (8.6-10.3) mg/dl 08/27/23 08/27/23 Range/Units 08:17 12:06 Sodium 134 L (136-145) mmol/L BUN 43 H (6-23) mg/dl Creatinine 1.48 H (0.6-1.4) mg/dl BUN/Creatinine Ratio 29.1 H (10-20) POC Glucose 224 H (70-99) mg/dl Calcium 8.4 L (8.6-10.3) mg/dl PG Care Time/CCT Total # of Minutes Spent Total Time Spent with Patient: Total time spent is greater than 50% in coordination of care (as documented) at patient's floor/unit and/or counseling patient: Coding Level of Care Code 79270 SUB INP/OBS CARE 2/35MIN Diagnoses Right heart failure I50.810 Paroxysmal A-fib I48.0 CKD (chronic kidney disease) N18.9 Hypothyroidism E03.9 Type 2 diabetes mellitus E11.9 Primary hypertension I10 Hypertension type: primary hypertension (6) Hypertension Hypertension type: primary hypertension Qualified Code(s): I10 - Essential (primary) hypertension
[2023-08-27] MEDS: bisacodyL 10 MG SUPP PR STA (14:59)
[2023-08-27] MEDS: bisacodyL 10 MG SUPP PR ONE (14:59)
[2023-08-28 07:52] LABS: BUN Creatinine Ratio 23.7 (10-20); Calcium 8.3 mg/dl (8.6-10.3); Creatinine Clr Calc Pharmacy 33.2 ml/min; Est GFR (African American) 41.1 ml/min; Est GFR (Non-African American) 35.5 ml/min; Potassium 4.4 mmol/L (3.5-5.1)
[2023-08-28] MEDS ORDERED: ceFAZolin 500 MG in SYRINGE 0 ML IV SCH (10:45)
--- NOTE | 2023-08-28 12:05 | Ultrasound Report ---
BILATERAL LOWER EXTREMITY VENOUS DOPPLER HISTORY: Bilateral leg swelling COMPARISON STUDY: None. FINDINGS: There is normal compressibility, flow, and augmentation within the bilateral lower extremit y deep venous systems. There is a 6.9 x 1.6 x 4.1 cm complex subcutaneous fluid collection within the left anterior lower leg. This favors a subcutaneous hematoma. IMPRESSION: 1. No DVT within the right or left lower extremity. 2. There is a 6.9 x 1.6 x 4.1 cm complex subcutaneous fluid collection within the left anterior lower leg. This favors a subcutaneous hematoma. ACT 112: Negative or not required by law. Electronically signed by: Mario Cardona M.D. 08/28/2023 12:04 PM
[2023-08-28] MEDS: ceFAZolin 2000MG 2,000 MG/15 ML SYR IV SCH (12:12)
--- NOTE | 2023-08-28 12:48 | Hospitalist Progress Note ---
Date of Service August 28, 2023 Assessment & Plan (1) Right heart failure: Plan: Acute on chronic right sided heart failure. Patient presenting with progressive edema and NAJERA. Adequate oxygenation on room air. -Gentle diuresis with Lasix 20mg IV daily Patient continues to improve with improving weight Creatinine improving as well. Creatinine is at 1.48, down from 1.6 on admission -Monitor I/Os, daily weights, renal function and electrolytes in response to diu resis (2) Paroxysmal A-fib: Plan: Chronic. Stable -Continue Apixaban 2.5mg po BID -Continue Flecainide -Bowel regimen - Colace 100mg po BID, Miralax BID PRN - patient reports significant constipation with Flecainide. Ordered Dulcolax suppository today -Continue Metoprolol (3) CKD (chronic kidney disease): Plan: BUN and Cr are improved form prior. Currently 43 and 1.48 -Avoid nephrotoxic agents -Renal dosing where needed -Monitor closely with Lasix use Renal function stable with diuretic therapy (4) Hypothyroidism: Plan: Chronic. Elevated TSH at last visit -Check TSH -Continue Synthroid (5) Type 2 diabetes mellitus: Plan: Chronic. Last AxaM2K=2.9 in June 2023. Patient is not on any medications. -CC diet -ISS coverage as needed, goal blood sugar 110 - 180 (6) Hypertension: Plan: Chronic. Well controlled -Continue metoprolol Plan PT/OT and case management involved. Patient may need placement Admission and Anticipated Discharge Date Admission Date: August 24, 2023 Subjective Patient is breathing well. Leg swelling improving. He is still fixated about his constipation. Asking for enema. Ordered a suppository today. Has had bowel movements during this hospital stay but has not had "enough" out, left leg swelling, erythema Review of Systems Review of Systems: All systems reviewed & are unremarkable except as noted in Subjective Physical Exam Physical Exam: head atraumatic neck supple chest decreased breath sounds at bases heart S1S2 regular abdomen soft, nt, nd, bs present extremities left leg swelling, erythema Results & Data Results & Data Vital Signs (Past 12 Hours) Vital Signs Temp Pulse Pulse Resp BP Pulse Ox O2 Del Method 08/28/23 11:23 36.6 C 70 16 115/58 L 98 Room Air 08/28/23 10:20 76 08/28/23 07:37 36.6 C 74 16 118/63 97 Room Air 08/28/23 03:46 36.5 C 73 20 108/56 L 97 Room Air Laboratory Results Abnormal lab results 08/27/23 08/27/23 08/28/23 Range/Units 17:07 20:10 07:08 Sodium 135 L (136-145) mmol/L BUN 40 H (6-23) mg/dl Creatinine 1.69 H (0.6-1.4) mg/dl BUN/Creatinine Ratio 23.7 H (10-20) POC Glucose 112 H 159 H (70-99) mg/dl Calcium 8.3 L (8.6-10.3) mg/dl 08/28/23 08/28/23 Range/Units 08:07 12:10 Sodium (136-145) mmol/L BUN (6-23) mg/dl Creatinine (0.6-1.4) mg/dl BUN/Creatinine Ratio (10-20) POC Glucose 100 H 176 H (70-99) mg/dl Calcium (8.6-10.3) mg/dl Medications Administered Home Medications Medication Instructions Recorded Confirmed Last Taken psyllium husk 3.4 gram/5.4 gram 1 tsp PO BID 10/22/21 08/24/23 08/12/23 oral powder (Metamucil) apixaban 2.5 mg tablet (Eliquis) 2.5 mg PO BID #180 tabs 12/12/22 08/24/23 08/12/23 mecobalamin (vitamin B12) 5,000 2,500 mcg (1/2 x 5,000 mcg) PO Q 03/29/23 08/24/23 Unknown mcg disintegrating tablet OTHER DAY #1 tab atorvastatin 20 mg tablet 10 mg PO QAM 07/13/23 08/24/23 08/12/23 flecainide 50 mg tablet 50 mg PO Q12H #60 tabs 07/27/23 08/24/23 08/12/23 buspirone 5 mg tablet 5 mg PO HS PRN Anxiety 08/07/23 08/24/23 Unknown ropinirole 0.25 mg tablet 0.25 mg PO HS PRN Restless Leg(S) 08/13/23 08/24/23 Unknown metoprolol succinate 25 mg 25 mg PO QAM #30 tabs 08/17/23 08/24/23 Unknown tablet,extended release 24 hr blood sugar diagnostic (RachnaTouch #100 ea 08/18/23 08/24/23 Unknown Verio test strips) lancets 33 gauge (Stacia Delica #100 ea 08/18/23 08/24/23 Unknown Plus Lancet) furosemide 40 mg tablet (Lasix) 40 mg PO DAILY PRN edema, SOB, 08/22/23 08/24/23 Unknown weight gain #30 tabs clonazepam 0.5 mg tablet 0.5 mg PO HS PRN Insomnia 08/24/23 08/24/23 Unknown doxepin 10 mg capsule 10 mg PO HS PRN Insomnia 08/24/23 08/24/23 Unknown levothyroxine 75 mcg tablet 75 mcg PO DAILYBB 08/24/23 08/24/23 Unknown [id number] 250 mg-dha 90 2 cap PO DAILY 08/24/23 08/24/23 Unknown mg-epa 160 [id number] capsule (Ocuvite Adult 50 Plus) Active Medications Generic Name Dose Route Start Last Admin Trade Name Freq PRN Reason Stop Dose Admin Apixaban 2.5 mg 08/25/23 09:00 08/28/23 07:58 Apixaban 2.5 Mg Tab PO 09/24/23 08:59 2.5 mg BID NLELI Administration Atorvastatin Calcium 10 mg 08/25/23 09:00 08/28/23 07:59 Atorvastatin 10 Mg Tab PO 09/24/23 08:59 10 mg QAM NELLI Administration Clonazepam 0.5 mg 08/25/23 00:31 08/25/23 04:02 Clonazepam 0.5 Mg Tab PO 09/24/23 00:30 0.5 mg HS PRN Administration Insomnia Docusate Sodium 100 mg 08/25/23 09:00 08/28/23 08:01 Docusate Sodium 100 Mg Cap PO 09/24/23 08:59 100 mg BID NELLI Administration Flecainide Acetate 50 mg 08/25/23 09:00 08/28/23 07:59 Flecainide Acetate 100 Mg Tablet PO 09/24/23 08:59 Not Given Q12H NELLI Furosemide 20 mg 08/25/23 09:00 08/28/23 08:01 Furosemide Inj 20 Mg/2 Ml Vial IV 05/05/24 08:59 20 mg DAILY NELLI Administration Cefazolin Sodium 2,000 mg in 15 mls @ 3.75 mls/min 08/28/23 11:00 08/28/23 12:12 Ancef 2000mg IV 09/04/23 10:59 3.75 mls/min Q12H NELLI Administration Insulin Aspart 0 units 08/25/23 07:30 08/28/23 09:07 Insulin Aspart Per Unit Charge SC 09/24/23 07:29 2 units ACHS NELLI Administration Levothyroxine Sodium 75 mcg 08/25/23 06:30 08/28/23 05:57 Levothyroxine Sodium 75 Mcg Tablet PO 09/24/23 06:29 75 mcg DAILYBB NELLI Administration Metoprolol Succinate 25 mg 08/25/23 09:00 08/28/23 07:59 Metoprolol Succ 25mg Ext Rel Tab PO 09/24/23 08:59 25 mg QAM NELLI Administration Polyethylene Glycol 17 gm 08/25/23 00:31 08/28/23 08:01 Polyethylene (Miralax) 17 Gm Pack PO 09/24/23 00:30 17 gm BID PRN Administration Constipation PG Care Time/CCT Total # of Minutes Spent Total Time Spent with Patient: Total time spent is greater than 50% in coordination of care (as documented) at patient's floor/unit and/or counseling patient: Coding Level of Care Code 79575 SUB INP/OBS CARE 2/35MIN Diagnoses Right heart failure I50.810 Paroxysmal A-fib I48.0 CKD (chronic kidney disease) N18.9 Hypothyroidism E03.9 Type 2 diabetes mellitus E11.9 Primary hypertension I10 Hypertension type: primary hypertension (6) Hypertension Hypertension type: primary hypertension Qualified Code(s): I10 - Essential (primary) hypertension
[2023-08-28] MEDS ORDERED: Nursing to Pharmacy Communication SCH (20:15)
[2023-08-29 07:34] LABS: Calcium 8.3 mg/dl (8.6-10.3); Est GFR (African American) 43.9 ml/min; Est GFR (Non-African American) 37.9 ml/min; Potassium 4.2 mmol/L (3.5-5.1)
[2023-08-29 10:04] LABS: Basophils # (auto) 0.04 K/uL (0.00-0.20); Basophils % (auto) 0.6 %; Eosinophils # (auto) 0.14 K/uL (0.00-0.50); Eosinophils % (auto) 1.9 %; Hematocrit (blood only) 26.2 % (42.0-52.0); Hemoglobin 8.4 g/dl (14.0-18.0); Immature Granulocytes # (auto) 0.06 K/uL (0.01-0.20); Immature Granulocytes % (auto) 0.8 %; Lymphocytes # (auto) 0.95 K/uL (1.20-3.40); Lymphocytes % (auto) 13.1 %; Mean Corpuscular Hemoglobin 31.8 pg (25.0-34.0); Mean Corpuscular Hgb Conc 32.1 g/dL (32.0-36.0); Mean Corpuscular Volume 99.2 fL (80.0-100.0); Mean Platelet Volume 9.7 fL (9.4-12.4); Monocytes # (auto) 0.89 K/uL (0.11-0.59); Monocytes % (auto) 12.3 %; Neutrophils # (auto) 5.16 K/uL (1.40-6.50); Neutrophils % (auto) 71.3 %; Platelet Count 133 K/uL (130-400); RDW Coefficient of Variation 18.1 % (11.5-14.5); RDW Standard Deviation 65.2 fL (36.4-46.3); Red Blood Count 2.64 M/uL (4.70-6.10); White Blood Count 7.24 K/ul (4.8-10.8)
--- NOTE | 2023-08-29 10:50 | Orthopedic Consultation ---
Date of Service August 29, 2023 Assessment & Plan (1) Hematoma of left hip: I had a long discussion today with the patient about his left hip hematoma with ample amount of time for the patient to ask any questions or state any concerns. All question and concerns were answered to the patient satisfaction. At this point, I do not feel that this hematoma is surgical in nature. I do feel that with his chronic use of Eliquis, if we were to aspirate or surgically drain this hematoma at this time, it would just reappear. He did note that he did have a similar hematoma in the past in which there was no intervention done for which did resolve. Does not appear that this hematoma is causing soft tissue comprom ise at this time. We would recommend that if the hematoma appears to be getting bigger, if possible, Eliquis should be held. Ice and elevation therapy would also be recommended. He may be weightbearing as tolerated. Medical management and DVT prophylaxis per primary. He may follow-up with his PCP for this issue once stable for discharge. He may also follow-up with [facility] orthopedics if desired. Please reach out by [place] text or to [facility] orthopedics if this patient's situation is to change. The patient was seen and examined by myself Alex Perez. I agree with the discussion above. This patient has a fairly diffusely hematoma in his left hip area as well as his left lower leg. It is fairly firm and not fluid in nature. I do not think this warrants surgical intervention or even attempted aspiration as it is likely a very thickened of fluid. The cement was all on its own. I think the medical team needs to determine whether to keep this gentleman on the Eliquis that based on his risk for falls and further bleeding. He is not actively bleeding at this point. There is no limitations from our standpoint. Will sign off for now. Any orthopedic questions can be directed me at [phone]. History of Present Illness Reason for Consultation: . Left hip hematoma Requesting Physician: . Attending Physician: Kristin Sequeira MD . Maxwell is an 88-year-old gentleman who we are asked to see on consultation today for his left hip hematoma. He does report that he has a frequent history of multiple falls. He came to the hospital for admission from the recommendations of his PCP. He was seen at his PCPs office and was transferred for admission here due to yellowing of his skin/jaundice. He does note that he has a history of a similar hematoma to the left hip that he was seen for by one of our surgeons Dr. Perez. He notes that it is very similar and at that time they just did watchful waiting and it did resolve on its own. He notes no discomfort to the left hip at this present time or over the hematoma itself. He also denies any hip pain at this time. He does have generalized weakness bilaterally in the lower extremity but this most likely has no correlation with the hematoma itself. He denies any other symptoms today. He is on Eliquis for anticoagulation. Allergies Allergy/AdvReac Type Severity Reaction Status Date / Time Sulfa (Sulfonamide Allergy Intermediate HIVES Verified 08/24/23 14:24 Antibiotics) Home Medications Medication Instructions Recorded Confirmed Type psyllium husk 3.4 gram/5.4 gram 1 tsp PO BID 10/22/21 08/24/23 History oral powder (Metamucil) apixaban 2.5 mg tablet (Eliquis) 2.5 mg PO BID #180 tabs 12/12/22 08/24/23 Rx mecobalamin (vitamin B12) 5,000 2,500 mcg (1/2 x 5,000 mcg) PO Q 03/29/23 08/24/23 Rx mcg disintegrating tablet OTHER DAY #1 tab atorvastatin 20 mg tablet 10 mg PO QAM 07/13/23 08/24/23 History flecainide 50 mg tablet 50 mg PO Q12H #60 tabs 07/27/23 08/24/23 Rx buspirone 5 mg tablet 5 mg PO HS PRN Anxiety 08/07/23 08/24/23 History ropinirole 0.25 mg tablet 0.25 mg PO HS PRN Restless Leg(S) 08/13/23 08/24/23 History metoprolol succinate 25 mg 25 mg PO QAM #30 tabs 08/17/23 08/24/23 Rx tablet,extended release 24 hr blood sugar diagnostic (OneTouch #100 ea 08/18/23 08/24/23 Rx Verio test strips) lancets 33 gauge (OneTouch Delica #100 ea 08/18/23 08/24/23 Rx Plus Lancet) furosemide 40 mg tablet (Lasix) 40 mg PO DAILY PRN edema, SOB, 08/22/23 08/24/23 Rx weight gain #30 tabs clonazepam 0.5 mg tablet 0.5 mg PO HS PRN Insomnia 08/24/23 08/24/23 History doxepin 10 mg capsule 10 mg PO HS PRN Insomnia 08/24/23 08/24/23 History levothyroxine 75 mcg tablet 75 mcg PO DAILYBB 08/24/23 08/24/23 History [id number]-[id number]-[id number] 250 mg-dha 90 2 cap PO DAILY 08/24/23 08/24/23 History mg-epa 160 wj-ffzj-tqjk-zeax capsule (Ocuvite Adult 50 Plus) Past Med/Surg History Medical History Non-ST elevation [place] (NSTEMI) Hypothyroidism Right heart failure History of cardioversion 07/18/23, [facility] Anticoagulant long-term use eliquis History of anesthesia reaction reports constipation, sleep disturbances and vission changes x 1 year following removal of loose body LLE 2000 History of gout Pancreatic cyst Constipation IBS (irritable bowel syndrome) DM type 2 (diabetes mellitus, type 2) diet controlled, no meds HLD (hyperlipidemia) Atrial flutter hx of Hypertension Chronic kidney disease, stage III (moderate) follows with Dr. 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 Monae--on BB and eliquis Benign essential hypertension Surgical History History of lymph node excision 01/2023 off right chest H/O left mastectomy History of surgery removal loose body x 2 LLE History of cataract surgery History of left hip replacement History of right hip replacement History of right mastectomy History of colonoscopy Family History Other No family history of adverse response to anesthesia Denies family history of Ovarian cancer Prostate cancer Breast cancer Lung cancer Colorectal cancer Social History Smoking Status: Never smoker Second Hand Exposure: No; Do You Dip or Chew Tobacco: No; Hx Alcohol Use: No Hx Substance Use: No Preferred Language: Icelandic Communication Ability: Effective Finance Specialist Required: No Beliefs That Will Affect Care: None marital status: / Current Living Situation: Alone 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 Physical Exam . General: patient resting comfortably, NAD, non-toxic in appearance, AA&O x 4 Skin: warm, dry, extensive bruising on left side from recent fall, skin tear on left forearm HEENT: NC/AT, PERRL, EOMI, anicteric sclera, conjunctiva without injection, external ear normal to inspection and nontender, nares patent, moist mucus membranes, dentition intact, no oropharyngeal lesions, neck supple, trachea midline, no LAD, no thyromegaly, no JVD Heart: +S1/S2, regular, no m/r/g Lungs: equal air entry bilaterally, no rales/rhonchi/wheezes Abd: +BS, soft, NT/ND, no masses/organomegaly/ascites Ext: warm, 2+ pulses in UE/LE bilaterally, no clubbing/cyanosis, 2+ pitting edema of bilateral LE Neuro: nonfocal, patient AA&O x 4, speech intact, no facial droop, moving all extremities on command with equal strength 5/5 Musculoskeletal On physical examination of the left lower extremity, he does have ecchymosis diffusely throughout the left leg. He does have what appears to be a fluid collection most likely hematoma proximally around the greater trochanter. It is firm and nontender. He does have grossly intact motor and sensory function diffusely throughout the lower extremity. He does have generalized weakness throughout the lower extremity. +2 DP and PT pulse. Less than 2-second capillary refill. Normal sensation. Neurovascular intact. Results & Data Results & Data Laboratory Results . Abnormal Labs 08/24/23 08/24/23 08/24/23 15:55 17:48 19:50 RBC 2.82 L Hgb 9.0 L Hct 27.4 L MCHC RDW Std Deviation 61.2 H RDW Coeff of [place] 17.7 H Plt Count 122 L Neut # (Auto) 7.00 H Lymph # (Auto) 0.95 L [place] # (Auto) 0.96 H PT 13.0 H INR 1.2 H APTT 32 H Sodium 129 L BUN 47 H Creatinine 1.66 H BUN/Creatinine Ratio 28.3 H Glucose 119 H POC Glucose Calcium Total Bilirubin 3.3 H Direct Bilirubin AST 46 H Troponin I High Sens 105.5 H* 102.2 H* B-Natriuretic Peptide Total Protein Lipase 144 H TSH 7.555 H Urine Protein 1+ H 08/24/23 08/25/23 08/25/23 22:53 02:53 08:18 RBC 2.57 L Hgb 8.2 L Hct 25.2 L MCHC RDW Std Deviation 62.2 H RDW Coeff of [place] 18.0 H Plt Count 101 L Neut # (Auto) Lymph # (Auto) [place] # (Auto) PT INR APTT Sodium 130 L BUN 43 H Creatinine 1.66 H BUN/Creatinine Ratio 25.9 H Glucose 104 H POC Glucose 133 H Calcium 8.5 L Total Bilirubin 2.8 H Direct Bilirubin 0.9 H AST Troponin I High Sens B-Natriuretic Peptide 724 H Total Protein 5.7 L Lipase TSH Urine Protein 08/25/23 08/25/23 08/25/23 11:59 12:49 17:32 RBC Hgb Hct MCHC RDW Std Deviation RDW Coeff of [place] Plt Count Neut # (Auto) Lymph # (Auto) [place] # (Auto) PT INR APTT Sodium BUN Creatinine BUN/Creatinine Ratio Glucose POC Glucose 193 H 174 H 122 H Calcium Total Bilirubin Direct Bilirubin AST Troponin I High Sens B-Natriuretic Peptide Total Protein Lipase TSH Urine Protein 08/25/23 08/26/23 08/26/23 20:54 08:14 12:40 RBC 2.58 L Hgb 8.1 L Hct 25.4 L MCHC 31.9 L RDW Std Deviation 63.6 H RDW Coeff of [place] 18.4 H Plt Count 100 L Neut # (Auto) Lymph # (Auto) [place] # (Auto) PT INR APTT Sodium 134 L BUN 47 H Creatinine 1.68 H BUN/Creatinine Ratio 28.0 H Glucose POC Glucose 108 H 185 H Calcium 8.3 L Total Bilirubin Direct Bilirubin AST Troponin I High Sens B-Natriuretic Peptide Total Protein Lipase TSH Urine Protein 08/26/23 08/26/23 08/27/23 17:08 20:16 08:17 RBC Hgb Hct MCHC RDW Std Deviation RDW Coeff of [place] Plt Count Neut # (Auto) Lymph # (Auto) [place] # (Auto) PT INR APTT Sodium 134 L BUN 43 H Creatinine 1.48 H BUN/Creatinine Ratio 29.1 H Glucose POC Glucose 124 H 107 H Calcium 8.4 L Total Bilirubin Direct Bilirubin AST Troponin I High Sens B-Natriuretic Peptide Total Protein Lipase TSH Urine Protein 08/27/23 08/27/23 08/27/23 12:06 17:07 20:10 RBC Hgb Hct MCHC RDW Std Deviation RDW Coeff of [place] Plt Count Neut # (Auto) Lymph # (Auto) [place] # (Auto) PT INR APTT Sodium BUN Creatinine BUN/Creatinine Ratio Glucose POC Glucose 224 H 112 H 159 H Calcium Total Bilirubin Direct Bilirubin AST Troponin I High Sens B-Natriuretic Peptide Total Protein Lipase TSH Urine Protein 08/28/23 08/28/23 08/28/23 07:08 08:07 12:10 RBC Hgb Hct MCHC RDW Std Deviation RDW Coeff of [place] Plt Count Neut # (Auto) Lymph # (Auto) [place] # (Auto) PT INR APTT Sodium 135 L BUN 40 H Creatinine 1.69 H BUN/Creatinine Ratio 23.7 H Glucose POC Glucose 100 H 176 H Calcium 8.3 L Total Bilirubin Direct Bilirubin AST Troponin I High Sens B-Natriuretic Peptide Total Protein Lipase TSH Urine Protein 08/28/23 08/28/23 08/29/23 17:11 20:24 06:50 RBC Hgb Hct MCHC RDW Std Deviation RDW Coeff of [place] Plt Count Neut # (Auto) Lymph # (Auto) [place] # (Auto) PT INR APTT Sodium 134 L BUN 40 H Creatinine 1.60 H BUN/Creatinine Ratio 25.0 H Glucose POC Glucose 128 H 137 H Calcium 8.3 L Total Bilirubin Direct Bilirubin AST Troponin I High Sens B-Natriuretic Peptide Total Protein Lipase TSH Urine Protein 08/29/23 06:52 RBC 2.64 L Hgb 8.4 L Hct 26.2 L MCHC RDW Std Deviation 65.2 H RDW Coeff of [place] 18.1 H Plt Count Neut # (Auto) Lymph # (Auto) 0.95 L [place] # (Auto) 0.89 H PT INR APTT Sodium BUN Creatinine BUN/Creatinine Ratio Glucose POC Glucose Calcium Total Bilirubin Direct Bilirubin AST Troponin I High Sens B-Natriuretic Peptide Total Protein Lipase TSH Urine Protein Diagnostic Findings . Chest X-Ray 08/24/23 15:47 SINGLE VIEW CHEST CLINICAL HISTORY: Atypical chest pain. FINDINGS: A PA chest radiograph is compared to study dated 08/13/2023. Correlation is made with abdominal CT dated 08/03/2023. The heart is enlarged noting atherosclerotic calcification of the thoracic aorta. The pulmonary vasculature is noncongested. Chronic interstitial thickening is similar to previous. There is a small right pleural effusion. No airspace consolidation typical for pneumonia is identified. No pneumothorax is seen. The skeletal structures are osteopenic. The bony thorax is grossly intact. IMPRESSION: 1. Cardiomegaly without radiographic evidence of congestive failure. 2. A small right pleural effusion is noted. This was also seen on the 08/03/[address] ACT 112: Negative or not required by law. Electronically signed by: Gamaliel Tavares M.D. 08/24/2023 4:44 PM Abdomen/Pelvis CT 08/24/23 19:14 Exam(s): CT ABDOMEN + PELVIS With Contrast IV Amt: 90 ml optiray 320 EXAM: CT Abdomen and Pelvis With Intravenous Contrast CLINICAL HISTORY: Reason for exam: jaundice. TECHNIQUE: Axial computed tomography images of the abdomen and pelvis with intravenous contrast. CTDI is 26.45 mGy and DLP is 1158.16 mGy-cm. Automated exposure control was utilized for the study. A dose lowering technique was utilized adhering to the principles of ALARA. CONTRAST: Patient received 90 ml optiray 320 of IV contrast COMPARISON: August 03, 2023 FINDINGS: Lung bases: Unremarkable. No mass. No consolidation. Pleural space: There is increase in size of a small right pleural effusion layering posteriorly measuring 3.2 cm. There is diffuse anasarca over the torso. Heart: The heart is enlarged, unchanged. ABDOMEN: Liver: Unremarkable. No mass. Gallbladder and bile ducts: Possible 6 mm gallstone within the dependent portion of a nondistended gallbladder. The small amount of surrounding fluid is likely due to the generalized edema rather than cholecystitis. No ductal dilation. Pancreas: Unremarkable. No mass. No ductal dilation. Spleen: Unremarkable. No splenomegaly. Adrenals: Unremarkable. No mass. Kidneys and ureters: Unremarkable. No solid mass. No hydronephrosis. Stomach and bowel: Unremarkable. No obstruction. No mucosal thickening. PELVIS: Appendix: The appendix is normal. Bowel loops are nondilated. No acute inflammatory changes are seen involving the bowel. Bladder: Unremarkable. No mass. Reproductive: Unremarkable as visualized. ABDOMEN and PELVIS: Intraperitoneal space: There is a small amount of free fluid in the abdomen and pelvis, similar to previous. No free air. 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 No acute fracture or dislocation is seen. Severe degenerative changes in the lumbar spine. There is moderate to severe spinal stenosis at L2-3 and L3-4 the thecal sac measuring 5-6 mm due to a combination of partially calcified posterior disc bulge and facet hypertrophy. Soft tissues: See above. Vasculature: The abdominal aorta is mildly calcified but nondilated. Lymph nodes: Unremarkable. No enlarged lymph nodes. IMPRESSION: 1. There is a small amount of free fluid in the abdomen and pelvis, similar to previous. 2. Possible 6 mm gallstone within the dependent portion of a nondistended gallbladder. The small amount of surrounding fluid is likely due to the generalized edema rather than cholecystitis. No biliary duct dilation is seen. 3. There is increase in size of a small right pleural effusion layering posteriorly measuring 3.2 cm. There is diffuse anasarca over the torso. 4. The appendix is normal. Bowel loops are nondilated. No acute inflammatory changes are seen involving the bowel. 5. Severe degenerative changes in the lumbar spine. There is moderate to severe spinal stenosis at L2-3 and L3-4 the thecal sac measuring 5-6 mm due to a combination of partially calcified posterior disc bulge and facet hypertrophy. Electronically signed by: Alexander Perez MD 08/24/23 22:06 PM Venous Doppler Study 08/28/23 10:36 BILATERAL LOWER EXTREMITY VENOUS DOPPLER HISTORY: Bilateral leg swelling COMPARISON STUDY: None. FINDINGS: There is normal compressibility, flow, and augmentation within the bilateral lower extremity deep venous systems. There is a 6.9 x 1.6 x 4.1 cm complex subcutaneous fluid collection within the left anterior lower leg. This favors a subcutaneous hematoma. IMPRESSION: 1. No DVT within the right or left lower extremity. 2. There is a 6.9 x 1.6 x 4.1 cm complex subcutaneous fluid collection within the left anterior lower leg. This favors a subcutaneous hematoma. ACT 112: Negative or not required by law. Electronically signed by: Mario Cardona M.D. 08/28/2023 12:04 PM PG Care Time/CCT Total # of Minutes Spent Total Time Spent with Patient: Total time spent is greater than 50% in coordination of care (as documented) at patient's floor/unit and/or counseling patient: Coding Level of Care Code 30566 IN/OBS CONSULT LVL 3,45M Diagnoses Hematoma of left hip S70.02XA Encounter type: initial encounter (1) Hematoma of left hip Encounter type: initial encounter Qualified Code(s): S70.02XA - Contusion of left hip, initial encounter
[2023-08-29 11:20] LABS: INR 1.2 (0.9-1.1); Partial Thromboplastin Ratio 1.2; Partial Thromboplastin Time 33 Seconds (21-31); Prothrombin Time 12.6 Seconds (9.0-12.0)
[2023-08-29 11:24] LABS: Ferritin 177.9 ng/ml (8-388)
[2023-08-29 16:55] LABS: Folate (Folic Acid),Ser orPlas 11.46 ng/ml (>5.38)
[2023-08-29 16:56] LABS: Vitamin B12 > 1500 pg/ml (180-914)
--- NOTE | 2023-08-29 17:10 | Oncology Consultation ---
Date of Consultation August 29, 2023 Assessment & Plan (1) Hematoma of left lower leg: (2) Paroxysmal A-fib: (3) Right heart failure: Plan -Left lower extremity hematoma likely due to recent fall in the setting of anticoagulant use. Recommend repeating ultrasound in about 24 hours and if hematoma is stable, recommend resuming prophylactic anticoagulation with Unfractionated heparin 5000 international units twice daily. If he has no evidence of worsening hematoma after being on unfractionated heparin for more than 24 hours, can transition back to Eliquis prior to discharge from hospital. -Patient also has anemia possibly due to hematoma/renal insufficiency. Recommend obtaining nutritional labs including B12, folate, iron studies. Also recommend SPEP with [facility]. If labs do not show cause of anemia, may need to consider outpatient bone marrow biopsy. -Patient can follow-up with [facility] hematology/oncology who is established with upon discharge from hospital Thank you for this consult. Hematology will follow peripherally while patient is in the hospital. Please feel free to call if you have any further questions History of Present Illness Reason for Consultation: Hematoma Attending Physician: Kristin Sequeira MD History of Present Illness 88-year-old gentleman with history of paroxysmal atrial fibrillation on chronic anticoagulation with Eliquis, history of heart failure, CKD stage III who presented to the ER at [facility] on 08/24/2023 with shortness of breath, lower extremity swelling and abnormal LFTs. Hematology was consulted for hematoma. Ultrasound of left lower extremity on 08/28/2023 revealed 6.9 x 1.6 x 4.1 cm complex subcutaneous fluid collection within the left anterior lower leg favoring a subcutaneous hematoma. Patient is currently being treated for acute right heart failure. States that he fell on his left side several days prior to presentation and noticed significant bruising shortly thereafter involving his left upper extremity and lower extremity. Allergies Allergy/AdvReac Type Severity Reaction Status Date / Time Sulfa (Sulfonamide Allergy Intermediate HIVES Verified 08/24/23 14:24 Antibiotics) Home Medications Medication Instructions Recorded Confirmed Type psyllium husk 3.4 gram/5.4 gram 1 tsp PO BID 10/22/21 08/24/23 History oral powder (Metamucil) apixaban 2.5 mg tablet (Eliquis) 2.5 mg PO BID #180 tabs 12/12/22 08/24/23 Rx mecobalamin (vitamin B12) 5,000 2,500 mcg (1/2 x 5,000 mcg) PO Q 03/29/23 08/24/23 Rx mcg disintegrating tablet OTHER DAY #1 tab atorvastatin 20 mg tablet 10 mg PO QAM 07/13/23 08/24/23 History flecainide 50 mg tablet 50 mg PO Q12H #60 tabs 07/27/23 08/24/23 Rx buspirone 5 mg tablet 5 mg PO HS PRN Anxiety 08/07/23 08/24/23 History ropinirole 0.25 mg tablet 0.25 mg PO HS PRN Restless Leg(S) 08/13/23 08/24/23 History metoprolol succinate 25 mg 25 mg PO QAM #30 tabs 08/17/23 08/24/23 Rx tablet,extended release 24 hr blood [facility]/23 08/24/23 Rx Verio test strips) lancets 33 gauge ([facility] ea 08/18/23 08/24/23 Rx Plus Lancet) furosemide 40 mg tablet (Lasix) 40 mg PO DAILY PRN edema, SOB, 08/22/23 08/24/23 Rx weight gain #30 tabs clonazepam 0.5 mg tablet 0.5 mg PO HS PRN Insomnia 08/24/23 08/24/23 History doxepin 10 mg capsule 10 mg PO HS PRN Insomnia 08/24/23 08/24/23 History levothyroxine 75 mcg tablet 75 mcg PO DAILYBB 08/24/23 08/24/23 History [id number] 250 mg-dha 90 2 cap PO DAILY 08/24/23 08/24/23 History mg-epa 160 fy-ttpb-sopb-zeax capsule (Ocuvite Adult 50 Plus) Patient History Medical History Non-ST elevation [place] (NSTEMI) Hypothyroidism Right heart failure History of cardioversion 07/18/23, [facility] Anticoagulant long-term use eliquis History of anesthesia reaction reports constipation, sleep disturbances and vission changes x 1 year following removal of loose body LLE 2000 History of gout Pancreatic cyst Constipation IBS (irritable bowel syndrome) DM type 2 (diabetes mellitus, type 2) diet controlled, no meds HLD (hyperlipidemia) Atrial flutter hx of Hypertension Chronic kidney disease, stage III (moderate) follows with Dr. 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 Monae--on BB and eliquis Benign essential hypertension Surgical History History of lymph node excision 01/2023 off right chest H/O left mastectomy History of surgery removal loose body x 2 LLE History of cataract surgery History of left hip replacement History of right hip replacement History of right mastectomy History of colonoscopy Family History Other No family history of adverse response to anesthesia Denies family history of Ovarian cancer Prostate cancer Breast cancer Lung cancer Colorectal cancer Social History Smoking Status: Never smoker Second Hand Exposure: No; Do You Dip or Chew Tobacco: No; Hx Alcohol Use: No Hx Substance Use: No Preferred Language: Amharic Communication Ability: Effective Commercial T[employer] Service Technician Required: No Beliefs That Will Affect Care: None marital status: / Current Living Situation: Alone 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
[2023-08-29] MEDS: APIXABAN 2.5 MG TAB PO SCH (20:29)
[2023-08-30 06:57] LABS: Basophils # (auto) 0.04 K/uL (0.00-0.20); Basophils % (auto) 0.6 %; Eosinophils # (auto) 0.09 K/uL (0.00-0.50); Eosinophils % (auto) 1.4 %; Hematocrit (blood only) 27.8 % (42.0-52.0); Hemoglobin 8.9 g/dl (14.0-18.0); Immature Granulocytes # (auto) 0.05 K/uL (0.01-0.20); Immature Granulocytes % (auto) 0.8 %; Lymphocytes # (auto) 0.88 K/uL (1.20-3.40); Lymphocytes % (auto) 13.8 %; Mean Corpuscular Hemoglobin 31.9 pg (25.0-34.0); Mean Corpuscular Volume 99.6 fL (80.0-100.0); Mean Platelet Volume 9.4 fL (9.4-12.4); Monocytes # (auto) 0.83 K/uL (0.11-0.59); Neutrophils # (auto) 4.48 K/uL (1.40-6.50); Neutrophils % (auto) 70.4 %; Platelet Count 136 K/uL (130-400); RDW Coefficient of Variation 17.9 % (11.5-14.5); RDW Standard Deviation 65.1 fL (36.4-46.3); Red Blood Count 2.79 M/uL (4.70-6.10); White Blood Count 6.37 K/ul (4.8-10.8)
[2023-08-30 07:16] LABS: BUN Creatinine Ratio 26.4 (10-20); Calcium 8.3 mg/dl (8.6-10.3); Creatinine Clr Calc Pharmacy 33.5 ml/min; Est GFR (Non-African American) 37.1 ml/min; Potassium 4.2 mmol/L (3.5-5.1)
[2023-08-30] MEDS: FUROSEMIDE 40 MG TAB PO SCH (08:56)
--- NOTE | 2023-08-30 13:14 | Hospitalist Progress Note ---
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 Patient presenting with progressive edema and NAJERA. Adequate oxygenation on room air. -Gentle diuresis with Lasix 20mg IV daily Patient continues to improve with improving weight Creatinine improving as well. Creatinine is at 1.48, down from 1.6 on admission -Monitor I/Os, daily weights, renal function and electrolytes in response to diu resis 08/28 creatinine remains stable at 1.63 , transition to lasix po (2) Paroxysmal A-fib: Plan: Chronic. Stable -Continue Apixaban 2.5mg po BID -Continue Flecainide -Bowel regimen - Colace 100mg po BID, Miralax BID PRN - patient reports significant constipation with Flecainide. Ordered Dulcolax suppository today -Continue Metoprolol (3) CKD (chronic kidney disease): Plan: BUN and Cr are improved form prior. Currently 43 and 1.63 -Avoid nephrotoxic agents -Renal dosing where needed -Monitor closely with Lasix use Renal function stable with diuretic therapy (4) Hypothyroidism: Plan: Chronic. Elevated TSH at last visit -Check TSH -Continue Synthroid (5) Type 2 diabetes mellitus: Plan: Chronic. Last [id number]=4.9 in June 2023. Patient is not on any medications. -CC diet -ISS coverage as needed, goal blood sugar 110 - 180 (6) Hypertension: Plan: Chronic. Well controlled -Continue metoprolol (7) Hematoma of left lower leg: Plan: stable, hgb is stable eliquis restarted Plan PT/OT and case management involved. Patient may need placement Admission and Anticipated Discharge Date Admission Date: August 24, 2023 Subjective left leg swelling, erythema is improving, hgb is stable, plt improving, he is ambulating , Review of Systems Review of Systems: All systems reviewed & are unremarkable except as noted in Subjective denies fever, chills, no SOB, no cough, no CP, no nausea, vomiting, no diarrhea , ambulating Physical Exam Physical Exam: head atraumatic neck supple chest decreased breath sounds at bases heart S1S2 regular abdomen soft, nt, nd, bs present extremities left leg swelling, erythema, tender Results & Data Results & Data Vital Signs (Past 12 Hours) Vital Signs Temp Pulse Pulse Resp BP Pulse Ox O2 Del Method 08/30/23 11:27 36.5 C 73 16 99/60 L 98 Room Air 08/30/23 10:30 75 08/30/23 07:58 36.7 C 83 16 101/60 96 Room Air 08/30/23 03:41 36.7 C 81 18 101/57 L 98 Room Air PG Care Time/CCT Total # of Minutes Spent Total Time Spent with Patient: Total time spent is greater than 50% in coordination of care (as documented) at patient's floor/unit and/or counseling patient: Coding Level of Care Code 21436 SUB INP/OBS CARE 2/35MIN Diagnoses Right heart failure I50.810 Paroxysmal A-fib I48.0 CKD (chronic kidney disease) N18.9 Hypothyroidism E03.9 Type 2 diabetes mellitus E11.9 Primary hypertension I10 Hypertension type: primary hypertension Hematoma of left lower leg S80.12XA (6) Hypertension Hypertension type: primary hypertension Qualified Code(s): I10 - Essential (primary) hypertension
--- NOTE | 2023-08-30 13:36 | Discharge Summary ---
Date of Service August 30, 2023 Admission HPI Per Admitting Provider Maxwell Encinas is an 88yo male with history of HTN, HLP, DM, right sided chronic heart failure as well as atrial flutter on Apixaban anticoagulation and Flecainide as well as bilateral breast cancer s/p lumpectomy and right mastectomy presenting with shortness of breath. Patient was admitted to [facility] from 08/13/23 - 08/17/23 after presenting with SOB and weakness as well as hyperkalemia, hyponatremia and APPLE thought to be secondary to cardiorenal syndrome. Patient was given IVF with improvement in Cr to 1.78. Patient was discharged home. He reports ongoing bilateral LE edema as well as NAJERA. He was seen by his PCP today for routine followup and sent in for concern for SOB. Recently established with CHF clinic - started weighing himself daily. Reports he did gain 1.2# over the last day. Ongoing generalized weakness - patient needs to crawl to get up the stairs. Principal Diagnosis 45 Discharge Exam head atraumatic neck supple chest decreased breath sounds at bases heart S1S2 regular abdomen soft, nt, nd, bs present extremities left leg swelling, erythema, tender Discharge Data Allergies Allergy/AdvReac Type Severity Reaction Status Date / Time Sulfa (Sulfonamide Allergy Intermediate HIVES Verified 08/24/23 14:24 Antibiotics) Consultations 08/29/23 07:32 Consult Orthopedic Surgery Routine 08/29/23 07:33 Consult Hematology Routine Ordered Studies 08/24/23 19:14 CT abd pelvis IV con only Stat 08/28/23 10:36 US venous doppler LE BI Routine Hospital Course (1) Right heart failure: Acute on chronic right sided heart failure. Patient presenting with progressive edema and NAJERA. Adequate oxygenation on room air. -Gentle diuresis with Lasix 20mg IV daily Patient continues to improve with improving weight Creatinine improving as well. Creatinine is at 1.48, down from 1.6 on admission -Monitor I/Os, daily weights, renal function and electrolytes in response to diuresis 08/28 creatinine remains stable at 1.63 , transition to lasix po (2) Paroxysmal A-fib: Chronic. Stable -Continue Apixaban 2.5mg po BID -Continue Flecainide -Bowel regimen - Colace 100mg po BID, Miralax BID PRN - patient reports significant constipation with Flecainide. Ordered Dulcolax suppository today -Continue Metoprolol (3) CKD (chronic kidney disease): BUN and Cr are improved form prior. Currently 43 and 1.63 -Avoid nephrotoxic agents -Renal dosing where needed -Monitor closely with Lasix use Renal function stable with diuretic therapy (4) Hypothyroidism: Chronic. Elevated TSH at last visit -Check TSH -Continue Synthroid (5) Type 2 diabetes mellitus: Chronic. Last HdvV2B=2.9 in June 2023. Patient is not on any medications. -CC diet -ISS coverage as needed, goal blood sugar 110 - 180 (6) Hypertension: Chronic. Well controlled -Continue metoprolol (7) Hematoma of left lower leg: stable, hgb is stable eliquis restarted (8) Cellulitis, leg: cellulitis left leg, started on IV Ancef, transitioned to Keflex po, he reports less pain Plan PT/OT and case management involved. stable for discharge Total Time Total Time Spent Total Time Spent (In Minutes): 45 min Discharge Plan Discharge Items Patient Disposition: Transfer Intermediate Fac Reason For Visit: EDEMA, SOB Discharge Diagnosis: fall, hematoma Activity: Resume your previous activity Non-emergency contact: Primary Care Provider Call non-emergency contact if: you have any medication questions Follow-up/Referrals: Raffi Alva MD [Primary Care Provider] - 09/04/23 12:00 pm Diet: Heart Healthy Addtl Attending Provider Instructions: follow up with PCP Pending Studies at Discharge: No Stand-Alone Forms: My [facility] Skilled Items Patient informed of condition?: Yes DNR: No Discharge Level of Care: Acute rehab Communicable Disease: No Discharge Prognosis: Stable Lines: None Urinary Catheter: No Medications and DC Order Prescriptions: New cephalexin 500 mg capsule 500 mg PO BID 7 Days Qty: 14 0RF Continued Eliquis 2.5 mg tablet 2.5 mg PO BID Qty: 180 3RF Metamucil 3.4 gram/5.4 gram powder 1 tsp PO BID Rx Instructions: mix into at least 8 oz of water or juice before administering mecobalamin (vitamin B12) 5,000 mcg tablet,disintegrating 2,500 mcg PO Q OTHER DAY Qty: 1 0RF buspirone 5 mg tablet 5 mg PO HS PRN (Reason: Anxiety) Hold Instructions: no longer takes Patient Comments: pt continues to take as needed at hs, he is unsure why this on the discontinued list. he reports taking buspirone with ropinirole for restless legs as needed at bedtime. flecainide 50 mg tablet 50 mg PO Q12H Qty: 60 2RF levothyroxine 75 mcg tablet 75 mcg PO DAILYBB Ocuvite Adult 50 Plus 250 mg (90 mg-160 mg) Capsule 2 cap PO DAILY clonazepam 0.5 mg tablet 0.5 mg PO HS PRN (Reason: Insomnia) doxepin 10 mg capsule 10 mg PO HS PRN (Reason: Insomnia) atorvastatin 20 mg tablet 10 mg PO QAM Rx Instructions: 1/2 tablet at bedtime ropinirole 0.25 mg tablet 0.25 mg PO HS PRN (Reason: Restless Leg(S)) metoprolol succinate 25 mg Tablet Extended Release 24 Hr 25 mg PO QAM Qty: 30 0RF furosemide [Lasix] 40 mg tablet 40 mg PO DAILY PRN (Reason: edema, SOB, weight gain) Qty: 30 2RF No Action (DME) OneTouch Verio test strips Strip See Rx Instructions .Route Qty: 100 1RF Rx Instructions: Check blood sugar once a day (DME) lancets [OneTouch Delica Plus Lancet] 33 gauge misc See Rx Instructions .Route Qty: 100 1RF Rx Instructions: Check blood sugar once a day Discharge Orders: Discharge Order (Routine); Ordered 08/30/23 Ordered By: Kristin Sequeira Admission Data Admit Date/Time: 08/24/23 23:31 Attending Provider: Kristin Sequeira Admit Provider: Elizabeth Perez Primary Care Provider: Raffi Alva V. Other Providers: Toñito Garcia; Bessie Saeed; Joyce Bragg; Chandler Perez; Yessica Oliver; Alex Perez; Berenice Nazario; Shashi Brewster; Zeeshan Macario; Soraida Erickson; Zeeshan Wong; Jose Morales; Sandy Hall; Gamaliel Soni; Hafsa Ruiz; Baylee Grande; James Ham; Kathrin Goetz; Radha Rico; Toñito Cobian; Francisco Hein; Mine Espitia; Alan,Shanda Attending Coding Level of Care Code 76771 INP/OBS DISCH >30 MIN Diagnoses Right heart failure I50.810 Paroxysmal A-fib I48.0 CKD (chronic kidney disease) N18.9 Hypothyroidism E03.9 Type 2 diabetes mellitus E11.9 Primary hypertension I10 Hypertension type: primary hypertension Hematoma of left lower leg S80.12XA Cellulitis, leg L03.119
[2023-08-31 06:10] LABS: Basophils # (auto) 0.03 K/uL (0.00-0.20); Basophils % (auto) 0.5 %; Eosinophils # (auto) 0.11 K/uL (0.00-0.50); Eosinophils % (auto) 1.8 %; Hematocrit (blood only) 26.1 % (42.0-52.0); Hemoglobin 8.6 g/dl (14.0-18.0); Immature Granulocytes # (auto) 0.05 K/uL (0.01-0.20); Immature Granulocytes % (auto) 0.8 %; Lymphocytes # (auto) 1.03 K/uL (1.20-3.40); Lymphocytes % (auto) 16.5 %; Mean Corpuscular Hemoglobin 31.6 pg (25.0-34.0); Mean Platelet Volume 9.4 fL (9.4-12.4); Monocytes # (auto) 0.83 K/uL (0.11-0.59); Monocytes % (auto) 13.3 %; Neutrophils # (auto) 4.19 K/uL (1.40-6.50); Neutrophils % (auto) 67.1 %; Platelet Count 135 K/uL (130-400); RDW Coefficient of Variation 17.4 % (11.5-14.5); RDW Standard Deviation 60.9 fL (36.4-46.3); Red Blood Count 2.72 M/uL (4.70-6.10); White Blood Count 6.24 K/ul (4.8-10.8)
[2023-08-31 06:20] LABS: BUN Creatinine Ratio 26.6 (10-20); Calcium 8.3 mg/dl (8.6-10.3); Creatinine Clr Calc Pharmacy 31.4 ml/min; Est GFR (Non-African American) 34.5 ml/min
--- NOTE | 2023-08-31 13:42 | Discharge Summary ---
Date of Service August 31, 2023 Admission HPI Per Admitting Provider Maxwell Encinas is an 88yo male with history of HTN, HLP, DM, right sided chronic heart failure as well as atrial flutter on Apixaban anticoagulation and Flecainide as well as bilateral breast cancer s/p lumpectomy and right mastectomy presenting with shortness of breath. Patient was admitted to [facility] from 08/13/23 - 08/17/23 after presenting with SOB and weakness as well as hyperkalemia, hyponatremia and APPLE thought to be secondary to cardiorenal syndrome. Patient was given IVF with improvement in Cr to 1.78. Patient was discharged home. He reports ongoing bilateral LE edema as well as NAJERA. He was seen by his PCP today for routine followup and sent in for concern for SOB. Recently established with CHF clinic - started weighing himself daily. Reports he did gain 1.2# over the last day. Ongoing generalized weakness - patient needs to crawl to get up the stairs. Principal Diagnosis fall, leg hematoma Discharge Exam head atraumatic neck supple chest decreased breath sounds at bases heart S1S2 regular abdomen soft, nt, nd, bs present extremities left leg swelling, erythema, tender Discharge Data Allergies Allergy/AdvReac Type Severity Reaction Status Date / Time Sulfa (Sulfonamide Allergy Intermediate HIVES Verified 08/24/23 14:24 Antibiotics) Consultations 08/29/23 07:32 Consult Orthopedic Surgery Routine 08/29/23 07:33 Consult Hematology Routine Ordered Studies 08/24/23 19:14 CT abd pelvis IV con only Stat 08/28/23 10:36 US venous doppler LE BI Routine Hospital Course (1) Right heart failure: Acute on chronic right sided heart failure. Patient presenting with progressive edema and NAJERA. Adequate oxygenation on room air. -Gentle diuresis with Lasix 20mg IV daily Patient continues to improve with improving weight Creatinine improving as well. Creatinine is at 1.48, down from 1.6 on admission -Monitor I/Os, daily weights, renal function and electrolytes in response to diuresis 08/28 creatinine remains stable at 1.63 , transition to lasix po, stable on Lasix po 08/30 insurance did not approve rehab , patient wants to go home with home care (2) Paroxysmal A-fib: Chronic. Stable -Continue Apixaban 2.5mg po BID -Continue Flecainide -Bowel regimen - Colace 100mg po BID, Miralax BID PRN - patient reports significant constipation with Flecainide. Ordered Dulcolax suppository today -Continue Metoprolol (3) CKD (chronic kidney disease): BUN and Cr are improved form prior. Currently 43 and 1.63 -Avoid nephrotoxic agents -Renal dosing where needed -Monitor closely with Lasix use Renal function stable with diuretic therapy (4) Hypothyroidism: Chronic. Elevated TSH at last visit -Check TSH -Continue Synthroid (5) Type 2 diabetes mellitus: Chronic. Last [id number]=5.9 in June 2023. Patient is not on any medications. -CC diet -ISS coverage as needed, goal blood sugar 110 - 180 (6) Hypertension: Chronic. Well controlled -Continue metoprolol (7) Hematoma of left lower leg: stable, hgb is stable eliquis restarted (8) Cellulitis, leg: cellulitis left leg, started on IV Ancef, transitioned to Keflex po, he reports less pain Keflex 250 mg tid for 7 days Plan PT/OT and case management involved. stable for discharge Total Time Total Time Spent Total Time Spent (In Minutes): 50 Discharge Plan Discharge Items Patient Disposition: Home - Home Health Services Reason For Visit: EDEMA, SOB Discharge Diagnosis: fall, hematoma Activity: Resume your previous activity Non-emergency contact: Primary Care Provider Call non-emergency contact if: you have any medication questions Follow-up/Referrals: Raffi Alva MD [Primary Care Provider] - 09/04/23 12:00 pm Diet: Heart Healthy Addtl Attending Provider Instructions: follow up with PCP Pending Studies at Discharge: No Stand-Alone Forms: [employer], Smoking Cessation Skilled Items Patient informed of condition?: Yes DNR: No Discharge Level of Care: Acute rehab Communicable Disease: No Discharge Prognosis: Stable Lines: None Urinary Catheter: No Medications and DC Order Prescriptions: New cephalexin 250 mg capsule 250 mg PO Q8H 7 Days Qty: 21 0RF Continued Eliquis 2.5 mg tablet 2.5 mg PO BID Qty: 180 3RF Metamucil 3.4 gram/5.4 gram powder 1 tsp PO BID Rx Instructions: mix into at least 8 oz of water or juice before administering mecobalamin (vitamin B12) 5,000 mcg tablet,disintegrating 2,500 mcg PO Q OTHER DAY Qty: 1 0RF buspirone 5 mg tablet 5 mg PO HS PRN (Reason: Anxiety) Hold Instructions: no longer takes Patient Comments: pt continues to take as needed at hs, he is unsure why this on the discontinued list. he reports taking buspirone with ropinirole for restless legs as needed at bedtime. flecainide 50 mg tablet 50 mg PO Q12H Qty: 60 2RF levothyroxine 75 mcg tablet 75 mcg PO DAILYBB Ocuvite Adult 50 Plus 250 mg (90 mg-160 mg) Capsule 2 cap PO DAILY clonazepam 0.5 mg tablet 0.5 mg PO HS PRN (Reason: Insomnia) doxepin 10 mg capsule 10 mg PO HS PRN (Reason: Insomnia) atorvastatin 20 mg tablet 10 mg PO QAM Rx Instructions: 1/2 tablet at bedtime ropinirole 0.25 mg tablet 0.25 mg PO HS PRN (Reason: Restless Leg(S)) metoprolol succinate 25 mg Tablet Extended Release 24 Hr 25 mg PO QAM Qty: 30 0RF Changed furosemide [Lasix] 40 mg tablet See Rx Instructions .ROUTE .COMPLEX Qty: 30 2RF Rx Instructions: 40 mg orally every other day No Action (DME) OneTouch Verio test strips Strip See Rx Instructions .Route Qty: 100 1RF Rx Instructions: Check blood sugar once a day (DME) lancets [OneTouch Delica Plus Lancet] 33 gauge misc See Rx Instructions .Route Qty: 100 1RF Rx Instructions: Check blood sugar once a day Discharge Orders: Discharge Order (Routine); Ordered 08/31/23 Ordered By: Kristin Sequeira Admission Data Admit Date/Time: 08/24/23 23:31 Attending Provider: Kristin Sequeira Admit Provider: Elizabeth Perez Primary Care Provider: Raffi Alva V. Other Providers: Toñito Garcia; Bessie Saeed; Joyce Bragg; Chandler Perez; Yessica Oliver; Alex Perez; Berenice Nazario; Shashi Brewster; Zeeshan Macario; Soraida Erickson; Zeeshan Wong; Jose Morales; Sandy Hall; Gamaliel Soni; Hafsa Ruiz; Baylee Grande; James Ham; Kathrin Goetz; Radha Rico; Toñito Cobian; Francisco Hein; Mine Espitia; rebelCCP,No Attending; [facility] Coding Level of Care Code 22454 INP/OBS DISCH >30 MIN Diagnoses Right heart failure I50.810 Paroxysmal A-fib I48.0 CKD (chronic kidney disease) N18.9 Hypothyroidism E03.9 Type 2 diabetes mellitus E11.9 Primary hypertension I10 Hypertension type: primary hypertension Hematoma of left lower leg S80.12XA Cellulitis, leg L03.119
[2023-09-01 08:12] LABS: Albumin 2.9 g/dL (3.8-4.8); Alpha 1 Globulin 0.3 g/dL (0.2-0.3); Alpha 2 Globulin 0.5 g/dL (0.5-0.9); Beta-1-Globulin 0.4 g/dL (0.4-0.6); Beta-2-Globulin 0.3 g/dL (0.2-0.5); Gamma Globulin 0.6 g/dL (0.8-1.7); Monoclonal Protein Band 1 DNR g/dL (NONE DETECTED); Monoclonal Protein Band 2 DNR g/dL (NONE DETECTED); Monoclonal Protein Band 3 DNR g/dL (NONE DETECTED)
== END 2023-08-31 18:23 | disposition home health service (06) | DRG 292 ==
LOC: ED 15:31 → EDINP 23:31 → SUATTDRO 23:31 → 2N 08-25 00:31
DX: E03.9 Hypothyroidism, unspecified; E87.1 Hypo-osmolality and hyponatremia; I25.2 Old myocardial infarction; Z79.01 Long term (current) use of anticoagulants; R29.6 Repeated falls; Z96.643 Presence of artificial hip joint, bilateral; I24.89 Other forms of acute ischemic heart disease; M79.81 Nontraumatic hematoma of soft tissue; Z88.2 Allergy status to sulfonamides; I50.813 Acute on chronic right heart failure; R17 Unspecified jaundice; I48.0 Paroxysmal atrial fibrillation; E11.22 Type 2 diabetes mellitus with diabetic chronic kidney disease; Y92.019 Unspecified place in single-family (private) house as the place of occurrence of the external cause; L03.116 Cellulitis of left lower limb; Z79.890 Hormone replacement therapy; Z60.2 Problems related to living alone; I13.0 Hypertensive heart and chronic kidney disease with heart failure and stage 1 through stage 4 chronic kidney disease, or unspecified chronic kidney disease; Z85.3 Personal history of malignant neoplasm of breast; E78.5 Hyperlipidemia, unspecified; N18.30 Chronic kidney disease, stage 3 unspecified; N17.9 Acute kidney failure, unspecified; I48.92 Unspecified atrial flutter; W18.39XA Other fall on same level, initial encounter

== ENCOUNTER 2024-07-14 13:39 | Inpatient (IN) ==
[2024-07-14 14:52] LABS: Base Excess VBG 0.5 mEq/L; HCO3 VBG 26 mmol/L; Oxygen Saturation VBG < 60.0 %; PCO2 VBG 44 mmHg (38-50); PO2 VBG 25 mmHg; pH VBG 7.38 (7.36-7.41)
[2024-07-14 15:01] LABS: Basophils # (auto) 0.02 K/uL (0.00-0.20); Basophils % (auto) 0.3 %; Eosinophils # (auto) 0.01 K/uL (0.00-0.50); Eosinophils % (auto) 0.2 %; Hematocrit (blood only) 28.3 % (42.0-52.0); Hemoglobin 9.4 g/dl (14.0-18.0); Immature Granulocytes # (auto) 0.05 K/uL (0.01-0.20); Immature Granulocytes % (auto) 0.8 %; Lymphocytes # (auto) 0.61 K/uL (1.20-3.40); Lymphocytes % (auto) 10.3 %; Mean Corpuscular Hemoglobin 32.3 pg (25.0-34.0); Mean Corpuscular Hgb Conc 33.2 g/dL (32.0-36.0); Mean Corpuscular Volume 97.3 fL (80.0-100.0); Mean Platelet Volume 10.4 fL (9.4-12.4); Monocytes # (auto) 0.64 K/uL (0.11-0.59); Monocytes % (auto) 10.8 %; Neutrophils # (auto) 4.62 K/uL (1.40-6.50); Neutrophils % (auto) 77.6 %; Platelet Count 66 K/uL (130-400); RDW Coefficient of Variation 16.1 % (11.5-14.5); RDW Standard Deviation 57.1 fL (36.4-46.3); Red Blood Count 2.91 M/uL (4.70-6.10); White Blood Count 5.95 K/ul (4.8-10.8)
[2024-07-14 15:02] LABS: iSTAT Creatinine 2.3 mg/dl (0.6-1.3); iSTAT Hemoglobin 10.2 g/dl (14.0-18.0); iSTAT Ionized Calcium 1.12 mmol/l (1.12-1.32); iSTAT Potassium 5.2 mmol/L (3.3-5.0)
--- NOTE | 2024-07-14 15:07 | Emergency Department Note ---
History of Present Illness General Chief complaint: Fall Stated complaint: FALL, DIFFICULTY WALKING Time Seen by Provider: 07/14/24 14:12 History of Present Illness Provider complaint: Fall weakness Onset (ago): week(s) 2 89-year-old male on Eliquis presents emergency department for fall and weakness. Patient reports that he fell 2 weeks ago. He states since then he has been having increasing left hip pain and weakness. Patient states he is having difficulty walking. No other fall other than 1 to 2 weeks ago. No neck pain. No abdominal pain. Home Medications Medication Instructions Recorded Confirmed Type mecobalamin (vitamin B12) 5,000 2,500 mcg (1/2 x 5,000 mcg) PO Q 03/29/23 07/14/24 Rx mcg disintegrating tablet OTHER DAY #1 tab lancets 33 gauge (DabKickTouch [facility] #100 ea 08/18/23 07/14/24 Rx Plus Lancet) [id number] 250 mg-dha 90 1 cap PO DAILY 09/11/23 07/14/24 History mg-epa 160 [id number] capsule (Ocuvite Adult 50 Plus) polyethylene glycol 3350 17 17 g PO DAILY PRN constipation 12/20/23 07/14/24 Rx gram/dose oral powder (Miralax) #238 grams blood sugar diagnostic (OneTouch #100 ea 12/29/23 07/14/24 Rx Verio test strips) furosemide 40 mg tablet (Lasix) 40 mg PO DAILY PRN weight gain, 01/05/24 07/14/24 Rx SOB, edema #30 tabs apixaban 2.5 mg tablet (Eliquis) 2.5 mg PO BID #180 tabs 01/08/24 07/14/24 Rx atorvastatin 10 mg tablet 10 mg PO QAM #90 tabs 04/11/24 07/14/24 Rx metoprolol succinate 100 mg 100 mg PO QAM #90 tabs 04/11/24 07/14/24 Rx tablet,extended release 24 hr buspirone 5 mg tablet 5 mg PO HS #30 tabs 04/12/24 07/14/24 Rx levothyroxine 75 mcg tablet 75 mcg PO DAILY #90 tabs 06/14/24 07/14/24 Rx clonazepam 0.5 mg tablet 0.5 mg PO HS PRN Insomnia #20 tabs 07/02/24 07/14/24 Rx docusate sodium 100 mg capsule 200 mg PO DAILY 07/02/24 07/14/24 History (Colace) ramelteon 8 mg tablet 8 mg PO HS #30 tabs 07/02/24 07/14/24 Rx Allergies Allergy/AdvReac Type Severity Reaction Status Date / Time Sulfa (Sulfonamide Allergy Intermediate HIVES Verified 07/02/24 13:59 Antibiotics) Past Med/Surg History Problem List (Updated 07/14/24 @ 17:25 by Jose Carreon MD) Hyponatremia (Acute) Sleep disturbances Chronic constipation Atrial flutter hx of Cholelithiasis Tricuspid regurgitation Gait disturbance (Chronic) Hypothyroidism Paroxysmal A-fib CLL (chronic lymphocytic leukemia) Thrombocytopenia Vitamin D deficiency Joint pain in fingers of left hand Vitamin B12 deficiency Hemorrhoids Health care maintenance Dyslipidemia (Chronic) Idiopathic polyneuropathy Type 2 diabetes mellitus (Chronic) Anemia (Chronic) Irritable bowel syndrome (Chronic) Lower back pain (Chronic) Osteoarthritis (Chronic) Insomnia (Chronic) H/O left mastectomy Hypertension Chronic kidney disease, stage III (moderate) follows with Dr. Abrams Medical History CKD (chronic kidney disease) Right heart failure Cellulitis, leg Hematoma of left lower leg Fall at home Anasarca Hyperbilirubinemia Localized swelling of both lower legs Elevated LFTs Non-ST elevation OK (NSTEMI) History of cardioversion 07/18/23, [facility] Anticoagulant long-term use eliquis History of anesthesia reaction reports constipation, sleep disturbances and vission changes x 1 year following removal of loose body LLE 2000 History of gout Pancreatic cyst Constipation IBS (irritable bowel syndrome) DM type 2 (diabetes mellitus, type 2) diet controlled, no meds HLD (hyperlipidemia) Leukemia, chronic lymphoid, in remission pt denies per heme records- "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 Monae--on BB and eliquis Benign essential hypertension Surgical History History of lymph node excision 01/2023 off right chest History of surgery removal loose body x 2 LLE History of cataract surgery History of left hip replacement History of right hip replacement History of right mastectomy History of colonoscopy Family History Other No family history of adverse response to anesthesia Denies family history of Ovarian cancer Prostate cancer Breast cancer Lung cancer Colorectal cancer Social History Smoking Status: Never smoker Second Hand Exposure: No; Do You Dip or Chew Tobacco: No; Hx Alcohol Use: No Hx Substance Use: No Preferred Language: Albanian Communication Ability: Effective Visual Impairment: No Limitations Hearing Ability: Normal Senior Network Security Architect Required: No Beliefs That Will Affect Care: None marital status: / Current Living Situation: Alone 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 How many Children do You have Comment: one son Feels Safe at Home: Yes Diet: diabetic caffeine: No Physical Activity Frequency: Does not Exercise Seatbelt Use: always Sunscreen Use: No Do you think of yourself as: straight/heterosexual Gender Identity: Male Assistive Devices: Cane, Glasses, Lift Chair and Walker Physical Exam Vital Signs Vital Signs - 24 hr 07/14/24 13:57 07/14/24 14:51 07/14/24 15:34 Temperature 36.6 C Temperature Source Temporal Artery Scan Pulse Rate 75 73 Pulse Rate [Apical] 74 Pulse Rhythm Pulse Rhythm [Apical] Regular Pulse Strength [Apical] Normal Respiratory Rate 18 20 Respiratory Effort / Characteristics Non-Labored Spontaneous Non-Labored Spontaneous Respiratory Depth Normal Normal Respiratory Pattern Regular Regular Blood Pressure 127/70 Blood Pressure [Right Arm] 112/78 Blood Pressure Mean 89 Blood Pressure Mean [Right Arm] 89 Blood Pressure Position [Right Arm] Lying Pulse Oximetry 98 100 Oxygen Delivery Method Room Air Room Air Sepsis Recent Fever Within 48 Hours No Sepsis New/Unexplained Change in Mental Status N/A Sepsis Action Taken by Nursing No Action Required 07/14/24 15:34 07/14/24 17:11 Temperature Temperature Source Pulse Rate 74 Pulse Rate [Apical] 76 Pulse Rhythm Regular Pulse Rhythm [Apical] Pulse Strength [Apical] Respiratory Rate 18 20 Respiratory Effort / Characteristics Non-Labored Spontaneous Respiratory Depth Normal Respiratory Pattern Regular Blood Pressure Blood Pressure [Right Arm] 126/88 Blood Pressure Mean Blood Pressure Mean [Right Arm] 100 Blood Pressure Position [Right Arm] Pulse Oximetry 100 100 Oxygen Delivery Method Room Air Room Air Sepsis Recent Fever Within 48 Hours Sepsis New/Unexplained Change in Mental Status Sepsis Action Taken by Nursing Physical Exam HENT: Exam performed. - Head: Normocephalic and atraumatic. EYES: Conjunctivae and EOM are normal. Pupils are equal, round, and reactive to light. Right eye exhibits no discharge. Left eye exhibits no discharge. No scleral icterus. NECK: Normal range of motion. Neck supple. No JVD present. No spinous process tenderness present. CV: Normal rate, irregular rhythm, normal heart sounds and intact distal pulses. There is no peripheral edema. Palpable radial pulses bue. PULM/CHEST: Effort normal and breath sounds normal. No respiratory distress. No stridor. He has no wheezes. He has no rales. - Chest Wall: He exhibits no tenderness. No crepitus bilaterally. ABD: The abdomen is soft. There is no tenderness. There is no rebound, no guarding MUSC/SKEL: Pelvis stable. Ecchymosis in the left groin. Large hematoma over the left lateral hip. NEURO: He is alert and oriented to person, place, and time. He has normal strength in the bilateral upper extremities. No cranial nerve deficit or sensory deficit. Course Course 1412: The patient was evaluated in room A11A. A complete history and physical exam was performed Cardiac monitoring: An order was placed for continuous cardiac monitoring. The monitor shows a rate of 70 with atrial fibrilation rhythm interpreted by wi 1720: Vital signs stable. Imaging shows no acute traumatic injury. Labs show sodium of 127 potassium 5.2 creatinine at baseline at 2.11. No seizures, no need for hypertonic saline. Patient will be gently hydrated to improve his hyponatremia. [facility]. Discussed case with Dr. Quigley who will evaluate the patient for admission. Administered Medications Sodium Chloride (Nss) 1,000 mls @ 125 mls/hr IV .Q8H NELLI Stop: 07/15/24 15:44 Last Admin: 07/14/24 15:48 Dose: 125 mls/hr Documented By: COOKIE Medical Decision Making Laboratory Data Attestation: I reviewed the patient's lab results. 07/14/24 14:42 07/14/24 14:42 Lab Results 02/23/25 02/23/25 Range/Units 14:42 14:48 WBC 5.95 (4.8-10.8) K/ul RBC 2.91 L (4.70-6.10) M/uL Hgb 9.4 L (14.0-18.0) g/dl POC Hgb 10.2 L (14.0-18.0) g/dl Hct 28.3 L (42.0-52.0) % POC Hct 30 L (42-52) % MCV 97.3 (80.0-100.0) fL MCH 32.3 (25.0-34.0) pg MCHC 33.2 (32.0-36.0) g/dL RDW Std Deviation 57.1 H (36.4-46.3) fL RDW Coeff of Gilbert 16.1 H (11.5-14.5) % Plt Count 66 L (130-400) K/uL MPV 10.4 (9.4-12.4) fL Immature Gran % (Auto) 0.8 % Neut % (Auto) 77.6 % Lymph % (Auto) 10.3 % Catron % (Auto) 10.8 % Eos % (Auto) 0.2 % Baso % (Auto) 0.3 % Neut # (Auto) 4.62 (1.40-6.50) K/uL Lymph # (Auto) 0.61 L (1.20-3.40) K/uL Catron # (Auto) 0.64 H (0.11-0.59) K/uL Eos # (Auto) 0.01 (0.00-0.50) K/uL Baso # (Auto) 0.02 (0.00-0.20) K/uL Immature Gran # (Auto) 0.05 (0.01-0.20) K/uL PT 13.6 H (9.0-12.0) Seconds INR 1.3 H (0.9-1.1) APTT 31 (21-31) Seconds PTT Ratio 1.2 VBG pH 7.38 (7.36-7.41) VBG pCO2 44 (38-50) mmHg VBG pO2 25 mmHg VBG HCO3 26 mmol/L VBG O2 Saturation < 60.0 % VBG Base Excess 0.5 mEq/L POC Sodium 128 L (135-144) mmol/L Sodium 127 L (136-145) mmol/L POC Potassium 5.2 H (3.3-5.0) mmol/L Potassium 5.2 H (3.5-5.1) mmol/L POC Chloride 94 L (101-112) mmol/L Chloride 95 L (98-107) mmol/L Carbon Dioxide 26 (21-32) mmol/L POC Total CO2 22 L (24-31) mmol/L Anion Gap 6 (3-11) POC Anion Gap 18.0 (16-25) mmol/L POC BUN 42 H (7-18) mg/dl BUN 49 H (6-23) mg/dl Creatinine 2.11 H (0.6-1.4) mg/dl POC Creatinine 2.3 H (0.6-1.3) mg/dl Est Cr Clr Drug Dosing Not Reportable eGFR 29.37 BUN/Creatinine Ratio 23.2 H (10-20) Glucose 230 H (70-99(Fasting)) mg/dl POC Glucose (other) 227 H (70-99) mg/dl Calcium 9.1 (8.6-10.3) mg/dl POC Ioniz Calcium Juliano 1.12 (1.12-1.32) mmol/l Magnesium 2.3 (1.7-2.4) mg/dl Imaging Data Attestation: I personally reviewed and interpreted this imaging study as follows: My Impression: Left hip x-ray: No acute fracture or dislocation Pelvis x-ray: No acute fracture or dislocation Radiologist's Impression: Cervical Spine CT 07/14/24 14:31 INDICATION: Pain and injury. COMPARISON: No relevant priors available TECHNIQUE: Axial CT images of the cervical spine were obtained without IV contrast administration. Coronal and sagittal reformations were reviewed. FINDINGS: Cervical vertebral body heights and alignment are maintained. No acute fracture or traumatic subluxation. Mild to moderate multilevel disc space narrowing and facet arthropathy. Neck soft tissues and lung apices appear grossly unremarkable. IMPRESSION: No acute fracture. Electronically signed by Curt Caans 07-14-2024 3:47 PM Chest X-Ray 07/14/24 14:31 INDICATION: Chest pain. TECHNIQUE: Frontal radiograph of the chest. COMPARISON: 08/24/2023 radiographs. FINDINGS: Cardiomegaly. Chronic appearing interstitial lung markings. Pulmonary vasculature appear within normal limits. No infiltrate, pleural effusion or pneumothorax. No acute osseous abnormality evident. IMPRESSION: No acute cardiopulmonary process. Electronically signed by Curt Cnaas 07-14-2024 5:[address] 07/14/24 14:31 INDICATION: Pain and injury. COMPARISON: CT from 08/13/2023. TECHNIQUE: Axial CT images of the head were obtained without IV contrast. Coronal and sagittal reformations were reviewed. FINDINGS: Bernardo-white differentiation is relatively preserved. No mass, mass effect or midline shift. Chronic ischemic white matter changes. Mild cortical atrophy. No evidence of acute large territorial infarction or acute intracranial hemorrhage. Ventricles appear normal in size. Basal cisterns are patent. No depressed calvarial fracture. IMPRESSION: No acute intracranial process. Electronically signed by Curt Canas 07-14-2024 3:47 PM Abdomen/Pelvis CT 07/14/24 14:51 INDICATION: Pain and injury. COMPARISON: No relevant priors available. TECHNIQUE: Axial CT images of the abdomen and pelvis were obtained without IV contrast administration. Coronal and sagittal reformations were reviewed. FINDINGS: Primarily. Small right pleural effusion with dependent atelectasis. Gallstones in the gallbladder. Small volume ascites. The liver, spleen, pancreas and adrenal glands appear unremarkable. No renal calculus or hydronephrosis. No evidence of bowel obstruction/colitis/appendicitis. No free air. No drainable fluid collection. The urinary bladder appears unremarkable. No acute osseous abnormality evident. Bilateral hip prostheses. Chronic appearing left pelvic fracture. Degenerative changes in the spine. IMPRESSION: 1. Small volume ascites. 2. Cholelithiasis. 3. Small right pleural effusion. Electronically signed by Curt Canas 07-14-2024 3:[address] 07/14/24 15:03 INDICATION: Pain and injury. COMPARISON: No relevant priors available TECHNIQUE: Axial CT images of the facial bones were obtained without IV contrast. Coronal and sagittal reformations were reviewed. FINDINGS: Orbits and globes appear intact. Facial bones appear intact. Mandible appears intact. No acute fracture. Mild right maxillary sinus mucosal thickening. No significant soft tissue abnormality. IMPRESSION: No acute fracture. Electronically signed by Curt Canas 07-14-2024 3:47 PM ECG Data Attestation: I personally reviewed and interpreted this ECG as follows: Rate (beats per minute): 73 Rhythm: + atrial fibrillation ECG Intervals/blocks: + Normal QRS and + Normal QT-c ECG ST segments: + Normal ST segments and + T-wave inversions (Leads V5 and V6) [facility] Narrative 1412: The patient was evaluated in room A11A. A complete history and physical exam was performed Cardiac monitoring: An order was placed for continuous cardiac monitoring. The monitor shows a rate of 70 with atrial fibrilation rhythm interpreted by me 1720: Vital signs stable. Imaging shows no acute traumatic injury. Labs show sodium of 127 potassium 5.2 creatinine at baseline at 2.11. No seizures, no need for hypertonic saline. Patient will be gently hydrated to improve his hyponatremia. Patient will be admitted to the [facility] hospitalist team. Discussed case with Dr. Quigley who will evaluate the patient for admission. Impression & Plan Hyponatremia Discharge Plan Visit Data Chief Complaint: Fall Stated Complaint: FALL, DIFFICULTY WALKING ED Provider: Jose Carreon Discharge Problem: Hyponatremia Patient Disposition: Being Evaluated by Hospitalist Forms Stand Alone Forms: [facility] Prescriptions Prescriptions: No Action (DME) lancets [OneTouch Delica Plus Lancet] 33 gauge misc See Rx Instructions .Route Qty: 100 1RF Rx Instructions: Check blood sugar once a day (DME) OneTouch Verio test strips Strip See Rx Instructions .Route Qty: 100 1RF Rx Instructions: Check blood sugar once a day Eliquis 2.5 mg tablet 2.5 mg PO BID Qty: 180 3RF buspirone 5 mg tablet 5 mg PO HS Qty: 30 5RF Hold Instructions: not helping for sleep levothyroxine 75 mcg tablet 75 mcg PO DAILY Qty: 90 3RF mecobalamin (vitamin B12) 5,000 mcg tablet,disintegrating 2,500 mcg PO Q OTHER DAY Qty: 1 0RF furosemide [Lasix] 40 mg tablet 40 mg PO DAILY PRN (Reason: weight gain, SOB, edema) Qty: 30 2RF atorvastatin 10 mg tablet 10 mg PO QAM Qty: 90 3RF metoprolol succinate 100 mg tablet extended release 24 hr 100 mg PO QAM Qty: 90 3RF docusate sodium [Colace] 100 mg capsule 200 mg PO DAILY clonazepam 0.5 mg tablet 0.5 mg PO HS PRN (Reason: Insomnia) Qty: 20 0RF ramelteon 8 mg tablet 8 mg PO HS Qty: 30 1RF polyethylene glycol 3350 [Miralax] 17 gram/dose powder 17 g PO DAILY PRN (Reason: constipation) Qty: 238 0RF Ocuvite Adult 50 Plus 250 mg (90 mg-160 mg) capsule 1 cap PO DAILY Referrals Referrals: Raffi Alva MD [Primary Care Provider] -
[2024-07-14 15:12] LABS: Anion Gap 6 (3-11); BUN Creatinine Ratio 23.2 (10-20); Blood Urea Nitrogen 49 mg/dl (6-23); Calcium 9.1 mg/dl (8.6-10.3); Carbon Dioxide 26 mmol/L (21-32); Chloride 95 mmol/L (98-107); Glucose 230 mg/dl (70-99(Fasting)); Magnesium 2.3 mg/dl (1.7-2.4); Potassium 5.2 mmol/L (3.5-5.1); Sodium 127 mmol/L (136-145)
[2024-07-14 15:24] LABS: INR 1.3 (0.9-1.1); Partial Thromboplastin Ratio 1.2; Partial Thromboplastin Time 31 Seconds (21-31); Prothrombin Time 13.6 Seconds (9.0-12.0)
[2024-07-14] MEDS: SODIUM CHLORIDE 0.9% 1,000 ML IV SCH (15:48)
--- NOTE | 2024-07-14 15:48 | CT Scan Report ---
INDICATION: Pain and injury. COMPARISON: CT from 08/13/2023. TECHNIQUE: Axial CT images of the head were obtained without IV contrast. Coronal and sagittal reformations were reviewed. FINDINGS: Bernardo-white differentiation is relatively preserved. No mass, mass effect or midline shift. Chronic ischemic white matter changes. Mild cortical atrophy. No evidence of acute large territorial infarction or acute intracranial hemorrhage. Ventricles appear normal in size. Basal cisterns are patent. No depressed calvarial fracture. IMPRESSION: No acute intracranial process. Electronically signed by Curt Canas 07-14-2024 3:47 PM
--- NOTE | 2024-07-14 15:49 | CT Scan Report ---
INDICATION: Pain and injury. COMPARISON: No relevant priors available TECHNIQUE: Axial CT images of the cervical spine were obtained without IV contrast administration. Coronal and sagittal reformations were reviewed. FINDINGS: Cervical vertebral body heights and alignment are maintained. No acute fracture or traumatic subluxation. Mild to moderate multilevel disc space narrowing and facet arthropathy. Neck soft tissues and lung apices appear grossly unremarkable. IMPRESSION: No acute fracture. Electronically signed by Curt Canas 07-14-2024 3:47 PM
--- NOTE | 2024-07-14 15:49 | CT Scan Report ---
INDICATION: Pain and injury. COMPARISON: No relevant priors available. TECHNIQUE: Axial CT images of the abdomen and pelvis were obtained without IV contrast administration. Coronal and sagittal reformations were reviewed. FINDINGS: Primarily. Small right pleural effusion with dependent atelectasis. Gallstones in the gallbladder. Small volume ascites. The liver, spleen, pancreas and adrenal glands appear unremarkable. No renal calculus or hydronephrosis. No evidence of bowel obstruction/colitis/appendicitis. No free air. No drainable fluid collection. The urinary bladder appears unremarkable. No acute osseous abnormality evident. Bilateral hip prostheses. Chronic appearing left pelvic fracture. Degenerative changes in the spine. IMPRESSION: 1. Small volume ascites. 2. Cholelithiasis. 3. Small right pleural effusion. Electronically signed by Curt Canas 07-14-2024 3:47 PM
--- NOTE | 2024-07-14 15:49 | CT Scan Report ---
INDICATION: Pain and injury. COMPARISON: No relevant priors available TECHNIQUE: Axial CT images of the facial bones were obtained without IV contrast. Coronal and sagittal reformations were reviewed. FINDINGS: Orbits and globes appear intact. Facial bones appear intact. Mandible appears intact. No acute fracture. Mild right maxillary sinus mucosal thickening. No significant soft tissue abnormality. IMPRESSION: No acute fracture. Electronically signed by Curt Canas 07-14-2024 3:47 PM
--- NOTE | 2024-07-14 17:09 | History & Physical Report ---
Date of Service July 14, 2024 Assessment & Plan (1) Ambulatory dysfunction: Plan: Secondary to reason for, PT/OT (2) Hyponatremia: Plan: Secondary to recent Lasix use, stop Lasix and repeat labs in AM (3) Sleep disturbances: Plan: Continue Ramelteon (4) Normocytic anemia: Plan: No melena or hematochezia. Repeat with AM labs Plan VTE Prophylaxis - Eliquis 2.5mg PO BID Diet - low Na, heart healthy Disposition - admit to med/tele Admission and Anticipated Discharge Date Admission Date: July 14, 2024 History of Present Illness Chief Complaint: Multiple concerns Primary Care Provider: Raffi Alva MD Maxwell Encinas is an 89 year old male who presents to the ER with left hip pain. He has a multitude of complaints including insomnia, ambulatory dysfunction, left leg pain. Difficult to get a good history from the patient as he jumps around in history and difficult to keep him on tasks or what was the main reason he came to the hospital. Appears his biggest complaints is his gait which is shuffling. He fell 2 weeks ago and reports difficulty with gait since then. He bruised his hip and knee following this and having pain on palpation but pain on walking doesn't appear to be the issue. No chest pain, shortness of breath or dizziness. Ambulatory dysfunction appears to be more of a balance issue. He also complains of difficulty sleeping. He reports previous use of clonazepam which was the only thing that worked. This was prescribed again on July 02 although the patient reports he doesn't take this but also for the last 4 nights he has switched between ramelteon and clonazepam. He also complains of leg swelling which he reports has been managed by his nuclear reactor engineer. He is supposed to take furosemide PRN per weight gain. He has been taking this daily for the last 2 weeks without much change in his leg edema. Allergies Allergy/AdvReac Type Severity Reaction Status Date / Time Sulfa (Sulfonamide Allergy Intermediate HIVES Verified 07/02/24 13:59 Antibiotics) Home Medications Medication Instructions Recorded Confirmed Type mecobalamin (vitamin B12) 5,000 2,500 mcg (1/2 x 5,000 mcg) PO Q 03/29/23 07/14/24 Rx mcg disintegrating tablet OTHER DAY #1 tab lancets 33 gauge (OneTouch Delica #100 ea 08/18/23 07/14/24 Rx Plus Lancet) inyshsqu-bte- 250 mg-dha 90 1 cap PO DAILY 09/11/23 07/14/24 History mg-epa 160 pr-ubac-icwq-zeax capsule (Ocuvite Adult 50 Plus) polyethylene glycol 3350 17 17 g PO DAILY PRN constipation 12/20/23 07/14/24 Rx gram/dose oral powder (Miralax) #238 grams blood sugar diagnostic (OneTouch #100 ea 12/29/23 07/14/24 Rx Verio test strips) furosemide 40 mg tablet (Lasix) 40 mg PO DAILY PRN weight gain, 01/05/24 07/14/24 Rx SOB, edema #30 tabs apixaban 2.5 mg tablet (Eliquis) 2.5 mg PO BID #180 tabs 01/08/24 07/14/24 Rx atorvastatin 10 mg tablet 10 mg PO QAM #90 tabs 04/11/24 07/14/24 Rx metoprolol succinate 100 mg 100 mg PO QAM #90 tabs 04/11/24 07/14/24 Rx tablet,extended release 24 hr buspirone 5 mg tablet 5 mg PO HS #30 tabs 04/12/24 07/14/24 Rx levothyroxine 75 mcg tablet 75 mcg PO DAILY #90 tabs 06/14/24 07/14/24 Rx clonazepam 0.5 mg tablet 0.5 mg PO HS PRN Insomnia #20 tabs 07/02/24 07/14/24 Rx docusate sodium 100 mg capsule 200 mg PO DAILY 07/02/24 07/14/24 History (Colace) ramelteon 8 mg tablet 8 mg PO HS #30 tabs 07/02/24 07/14/24 Rx Past Med/Surg History Problem List (Updated 07/15/24 @ 10:14 by Quinton Quigley MD) Normocytic anemia Ambulatory dysfunction Hyponatremia (Acute) Sleep disturbances Chronic constipation Atrial flutter hx of Cholelithiasis Tricuspid regurgitation Gait disturbance (Chronic) Hypothyroidism Paroxysmal A-fib CLL (chronic lymphocytic leukemia) Thrombocytopenia Vitamin D deficiency Joint pain in fingers of left hand Vitamin B12 deficiency Hemorrhoids Health care maintenance Dyslipidemia (Chronic) Idiopathic polyneuropathy Type 2 diabetes mellitus (Chronic) Anemia (Chronic) Irritable bowel syndrome (Chronic) Lower back pain (Chronic) Osteoarthritis (Chronic) Insomnia (Chronic) H/O left mastectomy Hypertension Chronic kidney disease, stage III (moderate) follows with Dr. Abrams Medical History CKD (chronic kidney disease) Right heart failure Cellulitis, leg Hematoma of left lower leg Fall at home Anasarca Hyperbilirubinemia Localized swelling of both lower legs Elevated LFTs Non-ST elevation LA (NSTEMI) History of cardioversion 07/18/23, [facility] Anticoagulant long-term use eliquis History of anesthesia reaction reports constipation, sleep disturbances and vission changes x 1 year following removal of loose body LLE 2000 History of gout Pancreatic cyst Constipation IBS (irritable bowel syndrome) DM type 2 (diabetes mellitus, type 2) diet controlled, no meds HLD (hyperlipidemia) Leukemia, chronic lymphoid, in remission pt denies per heme records- "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 Monae--on BB and eliquis Benign essential hypertension Surgical History History of lymph node excision 01/2023 off right chest History of surgery removal loose body x 2 LLE History of cataract surgery History of left hip replacement History of right hip replacement History of right mastectomy History of colonoscopy Family History Other No family history of adverse response to anesthesia Denies family history of Ovarian cancer Prostate cancer Breast cancer Lung cancer Colorectal cancer Social History Smoking Status: Never smoker Second Hand Exposure: No; Do You Dip or Chew Tobacco: No; Hx Alcohol Use: No Hx Substance Use: No Preferred Language: Italian Communication Ability: Effective Visual Impairment: No Limitations Hearing Ability: Normal Twx Operator Required: No Beliefs That Will Affect Care: None marital status: / Current Living Situation: Alone 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 How many Children do You have Comment: one son Feels Safe at Home: Yes Safety Concerns: Feels Safe At This Time Diet: diabetic caffeine: No Physical Activity Frequency: Does not Exercise Seatbelt Use: always Sunscreen Use: No Do you think of yourself as: straight/heterosexual Gender Identity: Male Assistive Devices: Cane and Walker Physical Exam Constitutional: well developed; + not well nourished and no acute distress Respiratory: normal respiratory effort, lungs clear to auscultation Cardiovascular: Rate/Rhythm: regular rate and regular rhythm Heart Sounds: no murmur Extremities: normal capillary refill and + pedal edema (left > right); no calf tenderness Gastrointestinal (Abdomen): normal bowel sounds, soft, nontender, no hepatosplenomegaly Musculoskeletal: no cyanosis or clubbing, extremities motor strength 5/5 Skin: + ecchymosis (lateral left knee and late ral hip) Neurologic: moves all extremities and awake; not confused Results & Data Results & Data Vital Signs (Past 12 Hours) Vital Signs Temp Pulse Pulse Resp BP BP Pulse Ox 07/14/24 15:34 74 18 100 07/14/24 15:34 74 20 112/78 100 07/14/24 14:51 73 07/14/24 13:57 36.6 C 75 18 127/70 98 O2 Del Method 07/14/24 15:34 Room Air 07/14/24 15:34 Room Air 07/14/24 14:51 07/14/24 13:57 Room Air Laboratory Results Admission labs reviewed Diagnostic Findings CT Head INDICATION: Pain and injury. COMPARISON: CT from 08/13/2023. TECHNIQUE: Axial CT images of the head were obtained without IV contrast. Coronal and sagittal reformations were reviewed. FINDINGS: Bernardo-white differentiation is relatively preserved. No mass, mass effect or midline shift. Chronic ischemic white matter changes. Mild cortical atrophy. No evidence of acute large territorial infarction or acute intracranial hemorrhage. Ventricles appear normal in size. Basal cisterns are patent. No depressed calvarial fracture. IMPRESSION: No acute intracranial process. CT Face INDICATION: Pain and injury. COMPARISON: No relevant priors available TECHNIQUE: Axial CT images of the facial bones were obtained without IV contrast. Coronal and sagittal reformations were reviewed. FINDINGS: Orbits and globes appear intact. Facial bones appear intact. Mandible appears intact. No acute fracture. Mild right maxillary sinus mucosal thickening. No significant soft tissue abnormality. IMPRESSION: No acute fracture. INDICATION: Pain and injury. CT A/P without contrast COMPARISON: No relevant priors available. TECHNIQUE: Axial CT images of the abdomen and pelvis were obtained without IV contrast administration. Coronal and sagittal reformations were reviewed. FINDINGS: Primarily. Small right pleural effusion with dependent atelectasis. Gallstones in the gallbladder. Small volume ascites. The liver, spleen, pancreas and adrenal glands appear unremarkable. No renal calculus or hydronephrosis. No evidence of bowel obstruction/colitis/appendicitis. No free air. No drainable fluid collection. The urinary bladder appears unremarkable. No acute osseous abnormality evident. Bilateral hip prostheses. Chronic appearing left pelvic fracture. Degenerative changes in the spine. IMPRESSION: 1. Small volume ascites. 2. Cholelithiasis. 3. Small right pleural effusion. Hip and pelvis XR INDICATION: Pain and injury. TECHNIQUE: 1 view of the pelvis. 2 views of the left hip. 4 views of left femur. COMPARISON: No relevant priors. FINDINGS: Left hip hardware appears intact. No acute fracture or dislocation. No lytic or blastic bony lesions seen. No evidence of cortical erosion. Mild to moderate degenerative changes in the knee. Chronic appearing left pelvic fracture. Soft tissue swelling. IMPRESSION: Soft tissue swelling without acute osseous abnormality evident. Medications Administered ER medications given: Normal saline @ 125ml/hr ECG Rate (beats per minute): 73 Rhythm: other (Accelerated junctional rhythm) Findings: + nonspecific-ST abn and + T-wave inversion (Lateral) Comparison ECG Date: from (10/04/2023) Change: the following changes noted (T wave inversions now present in lateral leads) Code Status & VTE Plan Code Status DNR/DNI VTE Prophylaxis Plan VTE Prophylaxis will be ordered: Yes PG Care Time/CCT Total # of Minutes Spent Total Time Spent with Patient: Total time spent is greater than 50% in coordination of care (as documented) at patient's floor/unit and/or counseling patient: Coding Level of Care Code 10004 INT INP/OBS CARE 3/75MIN Diagnoses Ambulatory dysfunction R26.2 Hyponatremia E87.1 Sleep disturbances G47.9 Normocytic anemia D64.9
--- NOTE | 2024-07-14 17:11 | XRay Report ---
INDICATION: Chest pain. TECHNIQUE: Frontal radiograph of the chest. COMPARISON: 08/24/2023 radiographs. FINDINGS: Cardiomegaly. Chronic appearing interstitial lung markings. Pulmonary vasculature appear within normal limits. No infiltrate, pleural effusion or pneumothorax. No acute osseous abnormality evident. IMPRESSION: No acute cardiopulmonary process. Electronically signed by Curt Canas 07-14-2024 5:11 PM
--- NOTE | 2024-07-14 17:22 | XRay Report ---
INDICATION: Pain and injury. TECHNIQUE: 1 view of the pelvis. 2 views of the left hip. 4 views of left femur. COMPARISON: No relevant priors. FINDINGS: Left hip hardware appears intact. No acute fracture or dislocation. No lytic or blastic bony lesions seen. No evidence of cortical erosion. Mild to moderate degenerative changes in the knee. Chronic appearing left pelvic fracture. Soft tissue swelling. IMPRESSION: Soft tissue swelling without acute osseous abnormality evident. Electronically signed by Curt Canas 07-14-2024 5:21 PM
--- NOTE | 2024-07-14 18:14 | Ultrasound Report ---
Examination: Doppler venous ultrasound of the lower extremity Comparison: None Technique: Grayscale evaluation with compression, spectral flow, and color Doppler assessment of the deep venous system of the leg, from the groin to the knee, as well as the lower leg Findings: The external iliac, common femoral, femoral, popliteal, peroneal and anterior and posterior tibial veins demonstrate normal compressibility and blood flow. Impression: No evidence for DVT of the left lower extremity Electronically signed by Cali Alexandre 07-14-2024 6:14 PM
[2024-07-15] MEDS ORDERED: ONDANSETRON INJ 2 MG/ML 2 ML VIAL IV PRN (03:08)
[2024-07-15] MEDS ORDERED: ACETAMINOPHEN 325 MG TAB PO PRN (03:08)
[2024-07-15] MEDS: busPIRone 5 MG TAB PO SCH (04:35)
[2024-07-15] MEDS: APIXABAN 2.5 MG TAB PO SCH (04:36)
[2024-07-15] MEDS: LEVOTHYROXINE SODIUM 75 MCG TABLET PO SCH (06:30)
[2024-07-15 08:07] LABS: Basophils # (auto) 0.03 K/uL (0.00-0.20); Basophils % (auto) 0.6 %; Eosinophils # (auto) 0.04 K/uL (0.00-0.50); Eosinophils % (auto) 0.8 %; Hematocrit (blood only) 26.5 % (42.0-52.0); Immature Granulocytes # (auto) 0.03 K/uL (0.01-0.20); Immature Granulocytes % (auto) 0.6 %; Lymphocytes # (auto) 0.59 K/uL (1.20-3.40); Lymphocytes % (auto) 11.4 %; Mean Corpuscular Volume 97.1 fL (80.0-100.0); Mean Platelet Volume 11.2 fL (9.4-12.4); Monocytes # (auto) 0.78 K/uL (0.11-0.59); Monocytes % (auto) 15.1 %; Neutrophils # (auto) 3.71 K/uL (1.40-6.50); Neutrophils % (auto) 71.5 %; Platelet Count 67 K/uL (130-400); RDW Coefficient of Variation 16.3 % (11.5-14.5); RDW Standard Deviation 56.5 fL (36.4-46.3); Red Blood Count 2.73 M/uL (4.70-6.10); White Blood Count 5.18 K/ul (4.8-10.8)
[2024-07-15 08:56] LABS: Albumin Globulin Ratio 1.7 (0.9-2); Albumin Level 3.6 gm/dl (3.4-5.0); BUN Creatinine Ratio 21.5 (10-20); Bilirubin,Total 3.2 mg/dl (0.2-1.0); Creatinine Clr Calc Pharmacy 26.3 ml/min; Globulin 2.1 gm/dl (2.5-4.0); Magnesium 2.2 mg/dl (1.7-2.4); Potassium 5.3 mmol/L (3.5-5.1); Total Protein 5.7 gm/dl (6.0-8.3)
[2024-07-15] MEDS: METOPROLOL SUCC 50MG EXT REL TAB PO SCH (09:24)
[2024-07-15] MEDS: ATORVASTATIN 10 MG TAB PO SCH (09:24)
[2024-07-15] MEDS: DOCUSATE SODIUM 100 MG CAP PO SCH (09:24)
[2024-07-15 11:47] LABS: Thyroid Stimulating Hormone 2.287 uIu/ml (0.300-4.500)
[2024-07-15] MEDS: SODIUM ZIRCONIUM CYCLOSILICATE 10 GM PACKET PO SCH (12:10)
--- NOTE | 2024-07-15 15:25 | Electrocardiogram Report ---
Test Reason : Blood Pressure : */* mmHG Vent. Rate : 73 BPM Atrial Rate : * BPM P-R Int : * ms QRS Dur : 106 ms QT Int : 398 ms P-R-T Axes : * 49 220 degrees QTcB Int : 438 ms Accelerated Junctional rhythm Low voltage QRS Abnormal ECG When compared with ECG of 04-Oct-2023 11:07, (unconfirmed) T wave inversion now evident in Lateral leads Confirmed by Cal Durán ([id number]) on 07/15/2024 3:25:12 PM Referred By: REFERRED SELF Confirmed By: Cal Durán
--- NOTE | 2024-07-15 16:53 | Hospitalist Progress Note ---
Date of Service July 15, 2024 Assessment & Plan (1) Ambulatory dysfunction: Plan: Secondary to recent fall, hip hematoma and knee ecchymosis with left leg swelling, PT/OT (2) Hip hematoma, left: Plan: Appears slightly worse than yesterday despite occurring 2 weeks ago. Will hold Eliquis in case orthopedics needs to drain this. He reports previously seeing Dr. Perez therefore placed a consult for him. Fortunately hemoglobin appears to be stable. N.p.o. after midnight in case he needs to go for incision and drainage (3) Normocytic anemia: Plan: No melena or hematochezia. Suspected secondary to hematoma as above. Appears stable while on Eliquis. Iron studies, B12, folate, reticulocyte count, LDH with a.m. labs (4) Hyponatremia: Plan: Secondary to recent Lasix use, stop Lasix, appears to be improving (5) Hyperkalemia: Plan: Continues to remain elevated. Now he is off Lasix it may continue to increase. Recommend starting Lokelma and will repeat with labs in AM. (6) Sleep disturbances: Plan: Continue Ramelteon - nonformulary medication so he did not get this last night but his friend will bring in for tonight Plan VTE Prophylaxis - Eliquis 2.5mg PO BID (held for possible I&D of hematoma) Diet - low Na, heart healthy Disposition - continued mission on med/tele Admission and Anticipated Discharge Date Admission Date: July 14, 2024 Subjective No significant worsening symptoms per patient but has not had PT yet today. He does not think the hematoma on his left hip is change. He notes repeated hematomas in this region which have been assessed by Dr. Boggs previously and have not needed to be drained however he thinks this is bigger than the ones previously assessed. Physical Exam Constitutional: well developed; + not well nourished and no acute distress Respiratory: normal respiratory effort, lungs clear to auscultation Cardiovascular: Rate/Rhythm: regular rate and regular rhythm Heart Sounds: no murmur Extremities: normal capillary refill and + pedal edema (Left greater than right); no calf tenderness Skin: Left hip hematoma without open area but with grazing over the mid area with ecchymosis around his back. Hematoma area appears slightly larger than yesterday but color remains dark. Results & Data Results & Data Vital Signs (Past 12 Hours) Vital Signs Pulse Resp BP Pulse Ox Pulse Ox O2 Del Method O2 Del Method 07/15/24 15:08 78 07/15/24 14:25 100 Room Air 07/15/24 09:03 76 22 99 07/15/24 08:00 75 18 122/84 100 07/15/24 07:07 75 07/15/24 07:03 75 20 99 07/15/24 07:00 118/82 07/15/24 06:00 76 14 119/83 98 Room Air 07/15/24 05:00 75 16 132/77 97 Room Air 07/15/24 05:00 76 18 132/77 98 Room Air PG Care Time/CCT Total # of Minutes Spent Total Time Spent with Patient: Total time spent is greater than 50% in coordination of care (as documented) at patient's floor/unit and/or counseling patient: Coding Level of Care Code 82795 SUB INP/OBS CARE 3/50MIN Diagnoses Ambulatory dysfunction R26.2 Hip hematoma, left S70.02XA Normocytic anemia D64.9 Hyponatremia E87.1 Hyperkalemia E87.5 Sleep disturbances G47.9
[2024-07-16 06:44] LABS: Basophils # (auto) 0.03 K/uL (0.00-0.20); Basophils % (auto) 0.5 %; Eosinophils # (auto) 0.06 K/uL (0.00-0.50); Hematocrit (blood only) 26.6 % (42.0-52.0); Immature Granulocytes # (auto) 0.05 K/uL (0.01-0.20); Immature Granulocytes % (auto) 0.9 %; Lymphocytes # (auto) 0.79 K/uL (1.20-3.40); Lymphocytes % (auto) 13.5 %; Mean Corpuscular Hemoglobin 32.6 pg (25.0-34.0); Mean Corpuscular Hgb Conc 33.8 g/dL (32.0-36.0); Mean Corpuscular Volume 96.4 fL (80.0-100.0); Mean Platelet Volume 10.6 fL (9.4-12.4); Monocytes % (auto) 13.6 %; Neutrophils # (auto) 4.14 K/uL (1.40-6.50); Neutrophils % (auto) 70.5 %; Platelet Count 65 K/uL (130-400); RDW Coefficient of Variation 16.4 % (11.5-14.5); RDW Standard Deviation 56.6 fL (36.4-46.3); Red Blood Count 2.76 M/uL (4.70-6.10); Reticulocyte % 3.03 % (0.50-2.00); White Blood Count 5.87 K/ul (4.8-10.8)
[2024-07-16 06:59] LABS: Albumin Globulin Ratio 1.5 (0.9-2); Albumin Level 3.6 gm/dl (3.4-5.0); BUN Creatinine Ratio 22.8 (10-20); Bilirubin,Total 3.3 mg/dl (0.2-1.0); Calcium 8.5 mg/dl (8.6-10.3); Creatinine Clr Calc Pharmacy 25.6 ml/min; Globulin 2.4 gm/dl (2.5-4.0); Potassium 4.8 mmol/L (3.5-5.1)
[2024-07-16 07:18] LABS: Ferritin 145.7 ng/ml (8-388)
[2024-07-16 07:25] LABS: Folate (Folic Acid),Ser orPlas 14.64 ng/ml (>5.38)
[2024-07-16 07:26] LABS: Vitamin B12 > 1500 pg/ml (180-914)
--- NOTE | 2024-07-16 09:00 | Orthopedic Consultation ---
Date of Service July 16, 2024 Assessment & Plan (1) Hip hematoma, left: He has a hematoma on the left lateral hip area and also of the lower lateral leg, as well as a knee effusion/likely hemarthrosis. He really isn't having any pain. We discussed aspiration of the hip but it is fairly firm and probably 2 weeks old, so unlikely that we would get any fluid. This should resolve with time. No sign of infection presently. Okay to weight bear as tolerated. Okay to eat from orthopedic standpoint, no surgery planned at this time. Hemoglobin is stable the past 2 days at 9.0 He was seen and examined by Dr. Perez today as well. History of Present Illness Reason for Consultation: . Requesting Physician: . Attending Physician: Quinton Quigley MD .89 year old patient admitted for ambulatory dysfunction, fell about 2 weeks ago and has a hematoma on the lateral hip. He denies any hip or leg pain, including with ambulation, but his biggest complaint is that he gets short of breath with walking. He has a h/o bilateral justus and a pelvis fracture about 3 years ago. He is normally on eliquis, on hold though today. Allergies Allergy/AdvReac Type Severity Reaction Status Date / Time Sulfa (Sulfonamide Allergy Intermediate HIVES Verified 07/02/24 13:59 Antibiotics) Home Medications Medication Instructions Recorded Confirmed Type mecobalamin (vitamin B12) 5,000 2,500 mcg (1/2 x 5,000 mcg) PO Q 03/29/23 07/14/24 Rx mcg disintegrating tablet OTHER DAY #1 tab lancets 33 gauge (OneTouch Delica #100 ea 08/18/23 07/14/24 Rx Plus Lancet) [id number] 250 mg-dha 90 1 cap PO DAILY 09/11/23 07/14/24 History mg-epa 160 yf-dvic-pajs-zeax capsule (Ocuvite Adult 50 Plus) polyethylene glycol 3350 17 17 g PO DAILY PRN constipation 12/20/23 07/14/24 Rx gram/dose oral powder (Miralax) #238 grams blood sugar diagnostic (OneTouch #100 ea 12/29/23 07/14/24 Rx Verio test strips) furosemide 40 mg tablet (Lasix) 40 mg PO DAILY PRN weight gain, 01/05/24 07/14/24 Rx SOB, edema #30 tabs apixaban 2.5 mg tablet (Eliquis) 2.5 mg PO BID #180 tabs 01/08/24 07/14/24 Rx atorvastatin 10 mg tablet 10 mg PO QAM #90 tabs 04/11/24 07/14/24 Rx metoprolol succinate 100 mg 100 mg PO QAM #90 tabs 04/11/24 07/14/24 Rx tablet,extended release 24 hr buspirone 5 mg tablet 5 mg PO HS #30 tabs 04/12/24 07/14/24 Rx levothyroxine 75 mcg tablet 75 mcg PO DAILY #90 tabs 06/14/24 07/14/24 Rx clonazepam 0.5 mg tablet 0.5 mg PO HS PRN Insomnia #20 tabs 07/02/24 07/14/24 Rx docusate sodium 100 mg capsule 200 mg PO DAILY 07/02/24 07/14/24 History (Colace) ramelteon 8 mg tablet 8 mg PO HS #30 tabs 07/02/24 07/14/24 Rx Past Med/Surg History Problem List Hyperkalemia Hip hematoma, left Normocytic anemia Ambulatory dysfunction Hyponatremia (Acute) Sleep disturbances Chronic constipation Atrial flutter hx of Cholelithiasis Tricuspid regurgitation Gait disturbance (Chronic) Hypothyroidism Paroxysmal A-fib CLL (chronic lymphocytic leukemia) Thrombocytopenia Vitamin D deficiency Joint pain in fingers of left hand Vitamin B12 deficiency Hemorrhoids Health care maintenance Dyslipidemia (Chronic) Idiopathic polyneuropathy Type 2 diabetes mellitus (Chronic) Anemia (Chronic) Irritable bowel syndrome (Chronic) Lower back pain (Chronic) Osteoarthritis (Chronic) Insomnia (Chronic) H/O left mastectomy Hypertension Chronic kidney disease, stage III (moderate) follows with Dr. Abrams Medical History CKD (chronic kidney disease) Right heart failure Cellulitis, leg Hematoma of left lower leg Fall at home Anasarca Hyperbilirubinemia Localized swelling of both lower legs Elevated LFTs Non-ST elevation [place] (NSTEMI) History of cardioversion 07/18/23, [facility] Anticoagulant long-term use eliquis History of anesthesia reaction reports constipation, sleep disturbances and vission changes x 1 year following removal of loose body LLE 2000 History of gout Pancreatic cyst Constipation IBS (irritable bowel syndrome) DM type 2 (diabetes mellitus, type 2) diet controlled, no meds HLD (hyperlipidemia) Leukemia, chronic lymphoid, in remission pt denies per heme records- "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 Monae--on BB and eliquis Benign essential hypertension Surgical History History of lymph node excision 01/2023 off right chest History of surgery removal loose body x 2 LLE History of cataract surgery History of left hip replacement History of right hip replacement History of right mastectomy History of colonoscopy Family History Other No family history of adverse response to anesthesia Denies family history of Ovarian cancer Prostate cancer Breast cancer Lung cancer Colorectal cancer Social History Smoking Status: Never smoker Second Hand Exposure: No; Do You Dip or Chew Tobacco: No; Hx Alcohol Use: No Hx Substance Use: No Preferred Language: Ukrainian Communication Ability: Effective Visual Impairment: No Limitations Hearing Ability: Normal Lead Injection Mold Technician Required: No Beliefs That Will Affect Care: None marital status: / Current Living Situation: Alone 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 Physical Exam . alert and oriented. NAD Left leg: Large hematoma laterally at the hip. +ecchymosis, no erythema to suggest infection/cellulitis. No tenderness to palpation around the lateral hip. The swelling is firm. He does have a knee effusion and hematoma/ecchymosis at the lateral knee. Varus deformity. Able to do straight leg raise and has no pain with knee and hip range of motion. Results & Data Results & Data Laboratory Results . Diagnostic Findings . PG Care Time/CCT Total # of Minutes Spent Total Time Spent with Patient: Total time spent is greater than 50% in coordination of care (as documented) at patient's floor/unit and/or counseling patient: Coding Level of Care Code 98660 IN/OBS CONSULT LVL 3,45M Diagnoses Hip hematoma, left S70.02XA
--- NOTE | 2024-07-16 10:06 | XCELERA ---
[id number]
--- NOTE | 2024-07-16 10:42 | Hospitalist Progress Note ---
Date of Service July 16, 2024 Assessment & Plan (1) Ambulatory dysfunction: Plan: Secondary to recent fall, hip hematoma and knee ecchymosis with left leg swelling, PT/OT evals pending Ultrasound venous Doppler negative for DVT (2) Hip hematoma, left: Plan: This appears to be stable. Suspect the worse appearance yesterday was more just positioning. Orthopedics evaluation pending Fortunately hemoglobin appears to be stable (3) Normocytic anemia: Plan: No melena or hematochezia. Suspected secondary to hematoma as above. Appears stable while on Eliquis. Transferrin saturation 13%, B12/folate normal - will start on iron supplementation (4) Hyponatremia: Plan: Improving off Lasix. Continue hold this. (5) Hyperkalemia: Plan: Improved with Lokelma. Already had dose today. Will discontinue further dosing. Can be followed as an outpatient. (6) Sleep disturbances: Plan: Continue Ramelteon - can continue if patient brings in medication Plan VTE Prophylaxis - Eliquis 2.5mg PO BID (held for possible I&D of hematoma) Diet - low Na, heart healthy Disposition - continued mission on med/tele Admission and Anticipated Discharge Date Admission Date: July 14, 2024 Subjective No significant worsening of left hip hematoma. Seen by orthopedics PA and talking about possible aspiration of left hip hematoma, awaiting to be seen by Dr. Perez. Physical Exam Constitutional: well developed; + not well nourished and no acute distress Skin: + ecchymosis (lateral left knee and late ral hip) Left hip hematoma Neurologic: moves all extremities and awake; not confused Results & Data Results & Data Vital Signs (Past 12 Hours) Vital Signs Temp Pulse Pulse Resp BP Pulse Ox O2 Del Method 07/16/24 09:50 Room Air 07/16/24 07:31 78 07/16/24 07:20 36.3 C L 79 18 108/70 98 Room Air 07/16/24 03:51 36.4 C L 79 20 101/63 96 Room Air 07/15/24 23:58 36.3 C L 77 20 115/68 97 Room Air PG Care Time/CCT Total # of Minutes Spent Total Time Spent with Patient: Total time spent is greater than 50% in coordination of care (as documented) at patient's floor/unit and/or counseling patient: Coding Level of Care Code 25951 SUB INP/OBS CARE 2/35MIN Diagnoses Ambulatory dysfunction R26.2 Hip hematoma, left S70.02XA Normocytic anemia D64.9 Hyponatremia E87.1 Hyperkalemia E87.5 Sleep disturbances G47.9
[2024-07-16] MEDS: RAMELTEON 8 MG TAB PO SCH (20:00)
[2024-07-17] MEDS: FERROUS SULFATE 325 MG TAB PO SCH (08:51)
--- NOTE | 2024-07-17 11:14 | Hospitalist Progress Note ---
Date of Service July 17, 2024 Assessment & Plan (1) Ambulatory dysfunction: Plan: 89-year-old male with a past medical history of CLL, paroxysmal A-fib, CKD 3, type II DM, left hip hematoma who presented with a hematoma, recent fall, hyponatremia, and hyperkalemia. Ambulatory dysfunction, left hip With recent fall, hip hematoma, knee ecchymosis PT/OT pending Doppler negative for DVT Seen by orthopedics. Knee effusion, lower lateral leg hematoma, left hip hematoma all noted. No pain. Appears old, and uninfected. Do not recommend surgery or drainage at this time. Appreciate recommendations H&H pending, has been stable last 2 days Hypotension Patient was hypotensive this morning although minimally symptomatic. Suspect he is slightly volume contracted, DDx includes medication to use with his metoprolol and bleeding. Repeat labs ordered. Metoprolol dose decreased CKD 3 Baseline creatinine around 1.7 Also with history of right heart failure, last echo LVEF 60 to 65% Dry weight/target weight 165 (75kg) By bed weight is above his dry weight however does not have JVD or lower extremity edema mucous membranes are tacky and appears slightly contracted. Orals encouraged Did have some hyponatremia which improved with Lasix. Suspect some degree of solute depletion separate from his history of right heart failure. Trended Anemia, combination of hematoma acute bleeding and iron deficiency Hematoma stable on Eliquis, trend hemoglobin daily Transferrin saturation low. Started on oral iron Will give Venofer daily dosing while inpatient Type II DM Switched to DM2 diet: SSI ordered DVT prophylaxis: Eliquis 2.5 mg twice daily resumed Diet: Heart healthy, low-sodium Disposition: M/T CODE STATUS: DNR/DNI (2) Hip hematoma, left: (3) Normocytic anemia: (4) Hyponatremia: (5) Hyperkalemia: (6) Sleep disturbances: Admission and Anticipated Discharge Date Admission Date: July 14, 2024 Mauro Arreola is seen in the bedside this morning. He reports that he had some low blood pressure which is lower than his normal which is usually around 1001 10, but has not had any lightheadedness, dizziness, SOB, presyncope, chest pain. He does feel constipated and notes he used to be on MiraLAX but has not been taking this. No other questions or concerns. His left knee hematoma he thinks is getting slightly smaller, has not enlarged. Denies new/worsening bleeding Physical Exam Physical Exam: General: A&Ox3. NAD. Cooperative. HEENT: Atraumatic, normocephalic. Pulm: CTAB A&P. -wheezes, -rales, -rhonchi. Symmetrical chest rise. No increased work of breathing. No respiratory distress. Cardiac: RRR, -mrg. Radial pulses intact and symmetrical. Extremities: Left hip with firm distended hematoma, no active bleeding. No redness/warmth/tenderness/erythema. Left anterior knee with small hematoma Ankle dorsiflexion/plantarflexion, floorleader strength 5/5 bilaterally without sensory or strength deficits No lower extremity edema Results & Data Results & Data Vital Signs (Past 12 Hours) Vital Signs Temp Pulse Pulse Resp BP Pulse Ox O2 Del Method 07/17/24 09:58 93/57 L 07/17/24 09:31 Room Air 07/17/24 07:53 36.3 C L 79 19 94/48 L 95 Room Air 07/17/24 07:16 78 07/17/24 04:18 36.4 C L 80 20 108/62 99 Room Air 07/17/24 00:08 36.6 C 79 20 112/71 95 Room Air PG Care Time/CCT Total # of Minutes Spent Total Time Spent with Patient: Total time spent is greater than 50% in coordination of care (as documented) at patient's floor/unit and/or counseling patient: Coding Level of Care Code 73077 SUB INP/OBS CARE 3/50MIN Diagnoses Ambulatory dysfunction R26.2 Hip hematoma, left S70.02XA Normocytic anemia D64.9 Hyponatremia E87.1 Hyperkalemia E87.5 Sleep disturbances G47.9
[2024-07-17] MEDS ORDERED: DEXTROSE 50% 50 ML SYRINGE IV PRN (11:20)
[2024-07-17] MEDS ORDERED: GLUCOSE 10 TAB/TUBE PO PRN (11:20)
[2024-07-17] MEDS ORDERED: GLUCOSE 40% GEL 15 GM TUBE PO PRN (11:20)
[2024-07-17] MEDS ORDERED: GLUCAGON FOR INJ 1 MG VIAL SQ PRN (11:20)
[2024-07-17] MEDS ORDERED: CARBOHYDRATES FOR HYPOGLYCEMIA PO PRN (11:20)
[2024-07-17 12:44] LABS: Hematocrit (blood only) 27.7 % (42.0-52.0); Hemoglobin 9.3 g/dl (14.0-18.0)
[2024-07-17 12:57] LABS: BUN Creatinine Ratio 24.4 (10-20); Calcium 8.8 mg/dl (8.6-10.3); Creatinine Clr Calc Pharmacy 28.5 ml/min; Potassium 4.2 mmol/L (3.5-5.1)
[2024-07-17] MEDS: INSULIN ASPART PER UNIT CHARGE SC SCH (13:02)
[2024-07-17] MEDS: POLYETHYLENE (MIRALAX) 17 GM PACK PO SCH (13:02)
[2024-07-17] MEDS: IRON SUCROSE 300 MG in SODIUM CHLORIDE 0.9% 250 ML IV ONE (13:07)
[2024-07-18 06:23] LABS: Basophils # (auto) 0.02 K/uL (0.00-0.20); Basophils % (auto) 0.4 %; Eosinophils # (auto) 0.12 K/uL (0.00-0.50); Eosinophils % (auto) 2.1 %; Hematocrit (blood only) 26.7 % (42.0-52.0); Hemoglobin 9.1 g/dl (14.0-18.0); Immature Granulocytes # (auto) 0.06 K/uL (0.01-0.20); Immature Granulocytes % (auto) 1.1 %; Lymphocytes # (auto) 0.91 K/uL (1.20-3.40); Lymphocytes % (auto) 16.1 %; Mean Corpuscular Hemoglobin 33.2 pg (25.0-34.0); Mean Corpuscular Hgb Conc 34.1 g/dL (32.0-36.0); Mean Corpuscular Volume 97.4 fL (80.0-100.0); Mean Platelet Volume 10.6 fL (9.4-12.4); Monocytes % (auto) 12.4 %; Neutrophils # (auto) 3.84 K/uL (1.40-6.50); Neutrophils % (auto) 67.9 %; Nucleated RBC # (auto) 0.02 K/uL (0.00-0.12); Nucleated RBC % (auto) 0.4 %; Platelet Count 71 K/uL (130-400); RDW Coefficient of Variation 16.7 % (11.5-14.5); Red Blood Count 2.74 M/uL (4.70-6.10); White Blood Count 5.65 K/ul (4.8-10.8)
[2024-07-18 06:40] LABS: BUN Creatinine Ratio 24.1 (10-20); Calcium 8.3 mg/dl (8.6-10.3); Creatinine Clr Calc Pharmacy 31.6 ml/min; Potassium 4.4 mmol/L (3.5-5.1)
[2024-07-18] MEDS: METOPROLOL SUCC 25MG EXT REL TAB PO SCH (09:19)
[2024-07-18] MEDS: PSYLLIUM or GUAR GUM FIBER 4GM PACKET PO SCH (11:53)
[2024-07-18] MEDS: bisacodyL 5 MG TABEC PO PRN (13:17)
[2024-07-18] MEDS: MAGNESIUM CITRATE 296 ML/BTL PO STA (13:17)
[2024-07-18] MEDS: bisacodyL 10 MG SUPP PR STA (13:17)
--- NOTE | 2024-07-18 13:21 | Hospitalist Progress Note ---
Date of Service July 18, 2024 Assessment & Plan (1) Ambulatory dysfunction: Plan: 89-year-old male with a past medical history of CLL, paroxysmal A-fib, CKD 3, type II DM, left hip hematoma who presented with a hematoma, recent fall, hyponatremia, and hyperkalemia. Ambulatory dysfunction, left hip With recent fall, hip hematoma, knee ecchymosis Doppler negative for DVT Seen by orthopedics. Knee effusion, lower lateral leg hematoma, left hip hematoma all noted. No pain. Appears old, and uninfected. Do not recommend surgery or drainage at this time. Appreciate recommendations H&H pending, has been stable last 2 days PT/OT seen. Recommend rehab. Patient initially refusing however discussed concerns for frailty further risks of falls and morbidity/mortality with patient at bedside and is subsequently agreeable to acute rehab prior to transition home but notes he is mostly worried about his bowel movements would like these addressed prior to transitioning to rehab. Constipation Patient reports concern for increasing constipation and some abdominal distention similar to prior constipation episodes. Ports he has had only small liquid bowel movements despite a feeling of bloating and abdominal distention similar to prior constipation episodes. ?overflow diarrhea. Dulcolax suppository and milk of magnesia added, KUB in the morning if not resolving/improved Hypotension Resolved CKD 3 Baseline creatinine around 1.7 Also with history of right heart failure, last echo LVEF 60 to 65% Dry weight/target weight 165 (75kg) By bed weight is above his dry weight however has not had JVD or lower extremity edema mucous membranes are tacky and appears slightly contracted. Orals encouraged Did have some hyponatremia which improved with Lasix. Suspect some degree of solute depletion separate from his history of right heart failure. Trended and stable Anemia, combination of hematoma acute bleeding and iron deficiency Hematoma stable on Eliquis, trend hemoglobin daily Transferrin saturation was low. Ferritin was not low however this may be artificially elevated as a phase reactant in the setting of fall/hematoma While inpatient we will give Venofer. Tolerated first infusion well. May receive up to 300 mg daily x 3 doses max Type II DM Switched to DM2 diet: SSI ordered DVT prophylaxis: Eliquis 2.5 mg twice daily resumed Diet: Heart healthy, low-sodium Disposition: M/T. Pending placement CODE STATUS: DNR/DNI (2) Hip hematoma, left: (3) Normocytic anemia: (4) Hyponatremia: (5) Hyperkalemia: (6) Sleep disturbances: Admission and Anticipated Discharge Date Admission Date: July 14, 2024 Mauro Arreola is seen at the bedside. He is very concerned about his ongoing and worsening constipation. Has had some small liquid bowel movements but feels that he is much more bloated. Initially declined rehab however further discussion he reports that he understands that this is recommended by PT and likely to help prevent readmission and further falls and is agreeable but notes that he is very concerned about his constipation and wants that addressed first. No other acute concerns at bedside. He has not had any expansion of the left hip hematoma. Denies new bleeding Physical Exam Physical Exam: General: A&Ox3. NAD. Cooperative. HEENT: Atraumatic, normocephalic. Pulm: CTAB A&P. -wheezes, -rales, -rhonchi. Symmetrical chest rise. No increased work of breathing. No respiratory distress. Cardiac: RRR, -mrg. Radial pulses intact and symmetrical. Abdomen: Softly distended. Nonrigid, no rebound/guard Extremities: Left hip with firm distended hematoma, no active bleeding. No redness/warmth/tenderness/erythema. 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 5/5 bilaterally without sensory or strength deficits No lower extremity edema Results & Data Results & Data Vital Signs (Past 12 Hours) Vital Signs Temp Pulse Pulse Resp BP Pulse Ox O2 Del Method 07/18/24 11:30 36.3 C L 82 18 110/67 99 Room Air 07/18/24 09:15 84 18 134/62 07/18/24 07:59 36.4 C L 83 18 94/56 L 91 Room Air 07/18/24 07:05 80 07/18/24 03:43 36.4 C L 81 20 106/67 97 Room Air PG Care Time/CCT Total # of Minutes Spent Total Time Spent with Patient: Total time spent is greater than 50% in coordination of care (as documented) at patient's floor/unit and/or counseling patient: Coding Level of Care Code 68259 SUB INP/OBS CARE 3/50MIN Diagnoses Ambulatory dysfunction R26.2 Hip hematoma, left S70.02XA Normocytic anemia D64.9 Hyponatremia E87.1 Hyperkalemia E87.5 Sleep disturbances G47.9
[2024-07-18] MEDS: bisacodyL 5 MG TABEC PO ONE (13:27)
[2024-07-19 06:35] LABS: Basophils # (auto) 0.04 K/uL (0.00-0.20); Basophils % (auto) 0.7 %; Eosinophils # (auto) 0.11 K/uL (0.00-0.50); Eosinophils % (auto) 1.9 %; Hemoglobin 9.7 g/dl (14.0-18.0); Immature Granulocytes # (auto) 0.06 K/uL (0.01-0.20); Immature Granulocytes % (auto) 1.1 %; Lymphocytes # (auto) 0.99 K/uL (1.20-3.40); Lymphocytes % (auto) 17.4 %; Mean Corpuscular Hemoglobin 32.7 pg (25.0-34.0); Mean Corpuscular Hgb Conc 33.4 g/dL (32.0-36.0); Mean Corpuscular Volume 97.6 fL (80.0-100.0); Mean Platelet Volume 10.7 fL (9.4-12.4); Monocytes % (auto) 10.5 %; Neutrophils # (auto) 3.89 K/uL (1.40-6.50); Neutrophils % (auto) 68.4 %; Nucleated RBC # (auto) 0.03 K/uL (0.00-0.12); Nucleated RBC % (auto) 0.5 %; Platelet Count 82 K/uL (130-400); RDW Coefficient of Variation 17.2 % (11.5-14.5); RDW Standard Deviation 58.8 fL (36.4-46.3); Red Blood Count 2.97 M/uL (4.70-6.10); White Blood Count 5.69 K/ul (4.8-10.8)
[2024-07-19 06:57] LABS: Calcium 8.6 mg/dl (8.6-10.3); Potassium 4.8 mmol/L (3.5-5.1)
[2024-07-19 07:02] LABS: BUN Creatinine Ratio 24.1 (10-20); Creatinine Clr Calc Pharmacy 34.8 ml/min
--- NOTE | 2024-07-19 09:10 | Hospitalist Progress Note ---
Date of Service July 19, 2024 Assessment & Plan (1) Ambulatory dysfunction: (2) Hip hematoma, left: (3) Normocytic anemia: (4) Hyponatremia: (5) Hyperkalemia: (6) Sleep disturbances: Plan 89-year-old male with a past medical history of CLL, paroxysmal A-fib, CKD 3, type II DM, left hip hematoma who presented with a hematoma, recent fall, hyponatremia, and hyperkalemia. Ambulatory dysfunction, left hip With recent fall, hip hematoma, knee ecchymosis Doppler negative for DVT Seen by orthopedics. Knee effusion, lower lateral leg hematoma, left hip hematoma all noted. No pain. Appears old, and uninfected. Do not recommend surgery or drainage at this time. Appreciate recommendations H&H pending, has been stable last 2 days PT/OT seen. Recommend rehab. Patient initially refusing however discussed concerns for frailty further risks of falls and morbidity/mortality with patient at bedside and is subsequently agreeable to acute rehab prior to transition home but notes he is mostly worried about his bowel movements would like these addressed prior to transitioning to rehab. Constipation resolved Hypotension Resolved CKD 3 Baseline creatinine around 1.7 Also with history of right heart failure, last echo LVEF 60 to 65% Dry weight/target weight 165 (75kg) By bed weight is above his dry weight however has not had JVD or lower extremity edema mucous membranes are tacky and appears slightly contracted. Orals encouraged Did have some hyponatremia which improved with Lasix. Suspect some degree of solute depletion separate from his history of right heart failure. Trended and stable Anemia, combination of hematoma acute bleeding and iron deficiency Hematoma stable on Eliquis, trend hemoglobin daily Transferrin saturation was low. Ferritin was not low however this may be artificially elevated as a phase reactant in the setting of fall/hematoma While inpatient we will give Venofer. Tolerated first infusion well. May receive up to 300 mg daily x 3 doses max Type II DM Switched to DM2 diet: SSI ordered DVT prophylaxis: Eliquis 2.5 mg twice daily resumed Diet: Heart healthy, low-sodium Disposition: M/T. Pending placement CODE STATUS: DNR/DNI Admission and Anticipated Discharge Date Admission Date: July 14, 2024 Subjective No acute events overnight Currently, he is concerned about not having not getting much therapy in the hospital. Review of Systems Review of Systems: Comprehensive ROS completed Physical Exam Physical Exam: Gen: NAD, in bed comfortable HEENT: NC/AT, anicteric, MMM Lungs: CTAB CVS: s1s2nl, RRR Abd: soft, NT, nl bowel sounds Ext: no edema , left hematoma stable (has scab over the hematoma which has been present from admission) Results & Data Results & Data Vital Signs (Past 12 Hours) Vital Signs Temp Pulse Pulse Resp BP Pulse Ox O2 Del Method 07/19/24 07:19 32 L 07/19/24 04:00 36.6 C 80 18 103/59 L 99 Room Air 07/19/24 00:00 36.5 C 81 18 106/64 100 Room Air 07/18/24 21:43 81 PG Care Time/CCT Total # of Minutes Spent Total Time Spent with Patient: Total time spent is greater than 50% in coordination of care (as documented) at patient's floor/unit and/or counseling patient: Coding Level of Care Code 37148 SUB INP/OBS CARE 2/35MIN Diagnoses Ambulatory dysfunction R26.2 Hip hematoma, left S70.02XA Normocytic anemia D64.9 Hyponatremia E87.1 Hyperkalemia E87.5 Sleep disturbances G47.9
[2024-07-19 13:08] LABS: Magnesium 2.1 mg/dl (1.7-2.4)
[2024-07-19] MEDS: SIMETHICONE 80 MG CHEW PO SCH (21:43)
[2024-07-20 10:02] LABS: Basophils # (auto) 0.04 K/uL (0.00-0.20); Basophils % (auto) 0.8 %; Eosinophils # (auto) 0.11 K/uL (0.00-0.50); Eosinophils % (auto) 2.1 %; Hematocrit (blood only) 27.8 % (42.0-52.0); Hemoglobin 9.4 g/dl (14.0-18.0); Immature Granulocytes # (auto) 0.04 K/uL (0.01-0.20); Immature Granulocytes % (auto) 0.8 %; Lymphocytes # (auto) 0.79 K/uL (1.20-3.40); Lymphocytes % (auto) 15.4 %; Mean Corpuscular Hemoglobin 33.5 pg (25.0-34.0); Mean Corpuscular Hgb Conc 33.8 g/dL (32.0-36.0); Mean Corpuscular Volume 98.9 fL (80.0-100.0); Mean Platelet Volume 10.2 fL (9.4-12.4); Monocytes # (auto) 0.52 K/uL (0.11-0.59); Monocytes % (auto) 10.1 %; Neutrophils # (auto) 3.63 K/uL (1.40-6.50); Neutrophils % (auto) 70.8 %; Platelet Count 84 K/uL (130-400); RDW Coefficient of Variation 17.9 % (11.5-14.5); RDW Standard Deviation 60.3 fL (36.4-46.3); Red Blood Count 2.81 M/uL (4.70-6.10); White Blood Count 5.13 K/ul (4.8-10.8)
--- NOTE | 2024-07-20 10:20 | Hospitalist Progress Note ---
Date of Service July 20, 2024 Assessment & Plan (1) Ambulatory dysfunction: (2) Hip hematoma, left: (3) Normocytic anemia: (4) Hyponatremia: (5) Hyperkalemia: (6) Sleep disturbances: Plan 89-year-old male with a past medical history of CLL, paroxysmal A-fib, CKD 3, type II DM, left hip hematoma who presented with a hematoma, recent fall, hyponatremia, and hyperkalemia. Ambulatory dysfunction, left hip With recent fall, hip hematoma, knee ecchymosis Doppler negative for DVT Seen by orthopedics. Knee effusion, lower lateral leg hematoma, left hip hematoma all noted. No pain. Appears old, and uninfected. Do not recommend surgery or drainage at this time. Appreciate recommendations H&H pending, has been stable last 2 days PT/OT seen. Recommend rehab. Patient initially refusing however discussed concerns for frailty further risks of falls and morbidity/mortality with patient at bedside and is subsequently agreeable to acute rehab. still very focused on regulating his bowels while at rehab. Constipation resolved Hypotension Resolved CKD 3 Baseline creatinine around 1.7 Also with history of right heart failure, last echo LVEF 60 to 65% Dry weight/target weight 165 (75kg) By bed weight is above his dry weight however has not had JVD or lower extremity edema mucous membranes are tacky and appears slightly contracted. Orals encouraged Did have some hyponatremia which improved with Lasix. Suspect some degree of solute depletion separate from his history of right heart failure. Trended and stable Anemia, combination of hematoma acute bleeding and iron deficiency Hematoma stable on Eliquis, trend hemoglobin daily Transferrin saturation was low. Ferritin was not low however this may be artificially elevated as a phase reactant in the setting of fall/hematoma While inpatient we will give Venofer. Tolerated first infusion well. May receive up to 300 mg daily x 3 doses max Type II DM Switched to DM2 diet: SSI ordered DVT prophylaxis: Eliquis 2.5 mg twice daily resumed Diet: Heart healthy, low-sodium Disposition: M/T. Pending placement CODE STATUS: DNR/DNI Admission and Anticipated Discharge Date Admission Date: July 14, 2024 Subjective No acute events overnight Currently, focused on regulating his bowels Review of Systems Review of Systems: Comprehensive ROS completed Physical Exam Physical Exam: Gen: NAD, in bed comfortable HEENT: NC/AT, anicteric, MMM Lungs: CTAB CVS: s1s2nl, RRR Abd: soft, NT, nl bowel sounds Ext: no edema , left hematoma stable (has scab over the hematoma which has been present from admission) Results & Data Results & Data Vital Signs (Past 12 Hours) Vital Signs Temp Pulse Resp BP Pulse Ox O2 Del Method 07/20/24 08:34 Room Air 07/20/24 07:42 36.3 C L 80 17 102/62 97 Room Air 07/20/24 03:07 36.2 C L 81 18 100/62 100 Room Air 07/19/24 22:28 36.3 C L 78 18 103/60 99 Room Air PG Care Time/CCT Total # of Minutes Spent Total Time Spent with Patient: Total time spent is greater than 50% in coordination of care (as documented) at patient's floor/unit and/or counseling patient: Coding Level of Care Code 33044 SUB INP/OBS CARE 2/35MIN Diagnoses Ambulatory dysfunction R26.2 Hip hematoma, left S70.02XA Normocytic anemia D64.9 Hyponatremia E87.1 Hyperkalemia E87.5 Sleep disturbances G47.9
[2024-07-20 10:21] LABS: BUN Creatinine Ratio 22.6 (10-20); Calcium 8.3 mg/dl (8.6-10.3); Creatinine Clr Calc Pharmacy 31.1 ml/min; Phosphorus 3.5 mg/dl (2.5-4.9); Potassium 4.8 mmol/L (3.5-5.1)
--- NOTE | 2024-07-21 08:18 | Hospitalist Progress Note ---
Date of Service July 21, 2024 Assessment & Plan (1) Ambulatory dysfunction: (2) Hip hematoma, left: (3) Normocytic anemia: (4) Hyponatremia: (5) Hyperkalemia: (6) Sleep disturbances: Plan 89-year-old male with a past medical history of CLL, paroxysmal A-fib, CKD 3, type II DM, left hip hematoma who presented with a hematoma, recent fall, hyponatremia, and hyperkalemia. Ambulatory dysfunction, left hip With recent fall, hip hematoma, knee ecchymosis Doppler negative for DVT Seen by orthopedics. Knee effusion, lower lateral leg hematoma, left hip hematoma all noted. No pain. Appears old, and uninfected. Do not recommend surgery or drainage at this time. Appreciate recommendations - H/H stable at 9 PT/OT seen. Recommend rehab. Patient initially refusing however discussed concerns for frailty further risks of falls and morbidity/mortality with patient at bedside and is subsequently agreeable to acute rehab. still very focused on regulating his bowels while at rehab. Constipation resolved Hypotension mostly resolved, occasionally low BP but pt is asymptomatic CKD 3 Baseline creatinine around 1.7 Also with history of right heart failure, last echo LVEF 60 to 65% Dry weight/target weight 165 (75kg) By bed weight is above his dry weight however has not had JVD or lower extremity edema mucous membranes are tacky and appears slightly contracted. Orals encouraged Did have some hyponatremia which improved with Lasix. Suspect some degree of solute depletion separate from his history of right heart failure. Trended and stable Anemia, combination of hematoma acute bleeding and iron deficiency Hematoma stable on Eliquis, trend hemoglobin daily Transferrin saturation was low. Ferritin was not low however this may be artificially elevated as a phase reactant in the setting of fall/hematoma While inpatient we will give Venofer. Tolerated first infusion well. May receive up to 300 mg daily x 3 doses max Type II DM Switched to DM2 diet: SSI ordered DVT prophylaxis: Eliquis 2.5 mg twice daily resumed Diet: Heart healthy, low-sodium CODE STATUS: DNR/DNI Disposition: pt medically stable, Pending placement to rehab, CM aware Admission and Anticipated Discharge Date Admission Date: July 14, 2024 Subjective No acute events overnight Currently no complaints Review of Systems Review of Systems: Comprehensive ROS completed Physical Exam Physical Exam: Gen: NAD, in bed comfortable HEENT: NC/AT, anicteric, MMM Lungs: CTAB CVS: s1s2nl, RRR Abd: soft, NT, nl bowel sounds Ext: no edema , left hematoma stable (has scab over the hematoma which has been present from admission) Results & Data Results & Data Vital Signs (Past 12 Hours) Vital Signs Temp Pulse Pulse Resp BP Pulse Ox O2 Del Method 07/21/24 08:11 36.2 C L 78 18 92/52 L 98 Room Air 07/21/24 08:02 Room Air 07/21/24 02:57 36.3 C L 76 18 111/65 100 Room Air 07/20/24 22:27 36.6 C 77 18 107/71 99 Room Air 07/20/24 21:45 66 PG Care Time/CCT Total # of Minutes Spent Total Time Spent with Patient: Total time spent is greater than 50% in coordination of care (as documented) at patient's floor/unit and/or counseling patient: Coding Level of Care Code 95804 SUB INP/OBS CARE 06/15MIN Diagnoses Ambulatory dysfunction R26.2 Hip hematoma, left S70.02XA Normocytic anemia D64.9 Hyponatremia E87.1 Hyperkalemia E87.5 Sleep disturbances G47.9
--- NOTE | 2024-07-22 13:58 | Hospitalist Progress Note ---
Date of Service July 22, 2024 Assessment & Plan (1) Ambulatory dysfunction: (2) Hip hematoma, left: (3) Normocytic anemia: (4) Hyponatremia: (5) Hyperkalemia: (6) Sleep disturbances: Plan 89-year-old male with a past medical history of CLL, paroxysmal A-fib, CKD 3, type II DM, left hip hematoma who presented with a hematoma, recent fall, hyponatremia, and hyperkalemia. Ambulatory dysfunction, left hip With recent fall, hip hematoma, knee ecchymosis Doppler negative for DVT Seen by orthopedics. Knee effusion, lower lateral leg hematoma, left hip hematoma all noted. No pain. Appears old, and uninfected. Do not recommend surgery or drainage at this time. Appreciate recommendations - H/H stable at 9 PT/OT seen. Recommend rehab. Patient initially refusing however discussed concerns for frailty further risks of falls and morbidity/mortality with patient at bedside and is subsequently agreeable to acute rehab. still very focused on regulating his bowels while at rehab. Constipation resolved Hypotension mostly resolved, occasionally low BP but pt is asymptomatic CKD 3 Baseline creatinine around 1.7 Also with history of right heart failure, last echo LVEF 60 to 65% Dry weight/target weight 165 (75kg) Did have some hyponatremia which improved with Lasix. Suspect some degree of solute depletion separate from his history of right heart failure. Trended and stable - cont oral hydration Anemia, combination of hematoma acute bleeding and iron deficiency Hematoma stable on Eliquis, trend hemoglobin daily Transferrin saturation was low. Ferritin was not low however this may be artificially elevated as a phase reactant in the setting of fall/hematoma While inpatient we will give Venofer. Tolerated first infusion well. May receive up to 300 mg daily x 3 doses max Type II DM Switched to DM2 diet: SSI ordered DVT prophylaxis: Eliquis 2.5 mg twice daily resumed Diet: Heart healthy, low-sodium CODE STATUS: DNR/DNI Disposition: pt medically stable, Pending placement to rehab, CM aware Admission and Anticipated Discharge Date Admission Date: July 14, 2024 Subjective No acute events overnight Currently no complaints Review of Systems Review of Systems: Comprehensive ROS completed Physical Exam Physical Exam: Gen: NAD, in bed comfortable HEENT: NC/AT, anicteric, MMM Lungs: CTAB CVS: s1s2nl, RRR Abd: soft, NT, nl bowel sounds Ext: no edema , left hematoma stable (has scab over the hematoma which has been present from admission) Results & Data Results & Data Vital Signs (Past 12 Hours) Vital Signs Temp Pulse Pulse Resp BP Pulse Ox O2 Del Method 07/22/24 10:57 36.2 C L 78 18 113/70 99 Room Air 07/22/24 07:31 76 07/22/24 07:12 36.3 C L 76 18 98/57 L 99 Room Air 07/22/24 03:01 36.3 C L 76 18 103/66 97 Room Air PG Care Time/CCT Total # of Minutes Spent Total Time Spent with Patient: Total time spent is greater than 50% in coordination of care (as documented) at patient's floor/unit and/or counseling patient: Coding Level of Care Code 43805 SUB INP/OBS CARE 2/35MIN Diagnoses Ambulatory dysfunction R26.2 Hip hematoma, left S70.02XA Normocytic anemia D64.9 Hyponatremia E87.1 Hyperkalemia E87.5 Sleep disturbances G47.9
[2024-07-23 05:41] LABS: Hematocrit (blood only) 28.6 % (42.0-52.0); Hemoglobin 9.7 g/dl (14.0-18.0); Mean Corpuscular Hgb Conc 33.9 g/dL (32.0-36.0); Mean Corpuscular Volume 100.4 fL (80.0-100.0); Mean Platelet Volume 9.9 fL (9.4-12.4); Platelet Count 75 K/uL (130-400); RDW Coefficient of Variation 18.6 % (11.5-14.5); RDW Standard Deviation 66.3 fL (36.4-46.3); Red Blood Count 2.85 M/uL (4.70-6.10)
[2024-07-23 05:58] LABS: BUN Creatinine Ratio 27.2 (10-20); Calcium 8.8 mg/dl (8.6-10.3); Creatinine Clr Calc Pharmacy 31.8 ml/min; Magnesium 2.2 mg/dl (1.7-2.4); Phosphorus 3.9 mg/dl (2.5-4.9); Potassium 4.7 mmol/L (3.5-5.1)
--- NOTE | 2024-07-23 21:38 | Hospitalist Progress Note ---
Date of Service July 23, 2024 Assessment & Plan (1) Ambulatory dysfunction: (2) Hip hematoma, left: (3) Normocytic anemia: (4) Hyponatremia: (5) Hyperkalemia: (6) Sleep disturbances: Plan 89 years old male with PMH of DNR/DNI @ home, non-insulin dependent DM2 with HbA1c 7.2%(06/21/2024, 10:31am), chronic euvolemic hyponatremia with baseline Na range, 127-135 mmol/L (08/03/2023 - 07/23/2024), CKD stage III with baseline creatinine range, 1.42 - 2.1 (05/30/2017 - 06/21/2024), chronic normocytic, normochromic anemia with baseline Hb range, 8.2 - 9.7 g/dL (08/15/2023 - 07/23/2024), CLL, paroxysmal A-fib, IBS, benign colonic polyp x 1 (2022), and left hip hematoma who presented to [facility] ER on 07/14/2024 with recent fall and left hip hematoma. Patient was subsequently admitted to the inpatient hospitalist service @ [facility] on 07/14/2024 with the following diagnoses: 1. Ambulatory dysfunction, s/p mechanical fall. 2. Acute hyperkalemia with K 5.2 mmol/L (07/14/2024, 2:42pm) 3. Chronic euvolemic hyponatremia with Na 127 mmol/L (07/14/2024, 2:42pm). The following medical issues are being addressed: Ambulatory dysfunction, left hip With recent fall, hip hematoma, knee ecchymosis Doppler negative for DVT Seen by orthopedics. Knee effusion, lower lateral leg hematoma, left hip hematoma all noted. No pain. Appears old, and uninfected. Do not recommend surgery or drainage at this time. Appreciate recommendations - H/H stable at 9 PT/OT seen. Recommend rehab. Patient initially refused D/C to acute rehab; subsequently, given concerns for frailty further risks of falls and morbidity/mortality with patient at bedside, patient subsequently agrees to acute rehab. still very focused on regulating his bowels while at rehab. Acute hyperkalemia with K 5.2 mmol/L (07/14/2024, 2:42pm). RESOLVED. Constipation resolved Chronic euvolemic hyponatremia with Na 127 mmol/L (07/14/2024, 2:42pm). cf., Na 133 mmol/L (07/23/2024, 5:27am). RESOLVED. Hypotension mostly resolved, occasionally low BP but pt is asymptomatic CKD 3 Baseline creatinine around 1.7 Also with history of right heart failure, last echo LVEF 60 to 65% Dry weight/target weight 165 (75kg) Did have some hyponatremia which improved with Lasix. Suspect some degree of solute depletion separate from his history of right heart failure. Trended and stable - cont oral hydration Anemia, combination of hematoma acute bleeding and iron deficiency Hematoma stable on Eliquis, trend hemoglobin daily Transferrin saturation was low. Ferritin was not low however this may be artificially elevated as a phase reactant in the setting of fall/hematoma While inpatient we will give Venofer. Tolerated first infusion well. May receive up to 300 mg daily x 3 doses max Type II DM Switched to DM2 diet: SSI ordered DVT prophylaxis: Eliquis 2.5 mg twice daily resumed Diet: Heart healthy, low-sodium CODE STATUS: DNR/DNI Disposition: pt medically stable, Pending placement to rehab, CM aware Admission and Anticipated Discharge Date Admission Date: July 14, 2024 Subjective "I am ok. No problem today." Review of Systems Constitutional: Negative for antecedent/coincident fevers, chills, diaphoresis, cough, wheeze, sore throat, hemoptysis, chest pains, palpitations, pleurisy, nausea, vomiting, diarrhea, abdominal pain, pelvic pain, hematemesis, hematochezia, melena, hematuria, dysuria, frequency, urgency, headaches, dizziness, lightheadedness, visual changes, hearing changes, weakness, falls, syncope, trauma, travel history, sick contacts, or food/drug ingestions novel or new. All other review of systems are reported as negative by the patient on 07/23/2024. Physical Exam Constitutional: General: Comfortable, coherent, cooperative. Wide awake and alert. Not confused, lethargic, or obtunded. Patient speaks in complete, fluent, and articulate sentences without pause, interruption, cough, or wheeze. HEENT: Normocephalic, atraumatic. Pupils equally round and reactive to light. Extra-ocular muscles intact. No nystagmus, gaze paresis, anisocoria, miosis, mydriasis, hyphema, scleral injection, conjunctivitis, or pterygium. No rhinorrhea or otorrhea. No pharyngeal discharge or erythema. Neck: Supple, no stridor, bruit, goiter, hepatojugular reflux. Jugular venous pressure is estimated to be 8 cm above the sternal angle of Lewis, which is estimated to be 5 cm above the level of the right atrium. Lymph: No anterior/posterior cervical, supraclavicular/infraclavicular, axillary, epitrochlear, or inguinal adenopathy. Chest: Symmetric rise and fall with respirations. Lungs: Clear to auscultation and percussion. No audible expiratory wheeze, egophony, pectoriloquy, increase in tactile fremitus, or flatness/dullness to percussion at the bases. Heart: RRR, S1 and S2 noted. No S3 or S4 summation gallop noted. No tripartite friction rub. Grade II/ early systolic murmur @ LLSB without radiation to the carotids, axilla, or back, and which remains invariant in regards to the respiratory cycle. Abdomen: Soft, generalized tenderness, non-distended. No rebound, guarding, Fong's sign, or organomegaly. Bowel sounds sounds auscultated in all 4 jie drants. Extremities: No clubbing, cyanosis, or edema. 2+ pedal pulses bilaterally. Skin: No decubitus ulcer or enanthem or exanthem. Neurology: Alert and oriented to person, place, time, and situation. DTR+ and symmetric. 5/5 motor strength in all 4 extremities, both proximally and distally. No pronator drift. No facial droop. No tremors, tics, or myoclonus. Urology: No castrejon. No urethral discharge. Psychiatry: No suicidal ideation. No homicidal ideation. Results & Data Results & Data Vital Signs (Past 12 Hours) Vital Signs Temp Pulse Pulse Resp BP Pulse Ox O2 Del Method 07/23/24 20:43 35.2 C L 07/23/24 19:45 35.2 C L 72 16 106/71 93 Room Air 07/23/24 16:04 79 16 104/64 93 Room Air 07/23/24 14:00 07/23/24 14:00 78 07/23/24 11:16 79 16 100/60 98 Room Air O2 Del Method 07/23/24 20:43 07/23/24 19:45 07/23/24 16:04 07/23/24 14:00 Room Air 07/23/24 14:00 07/23/24 11:16 Laboratory Results 07/23/24 07/23/24 07/23/24 20:35 17:17 12:15 WBC RBC Hgb Hct MCV MCH MCHC RDW Std Deviation RDW Coeff of Gilbert Plt Count MPV Sodium Potassium Chloride Carbon Dioxide Anion Gap BUN Creatinine Est Cr Clr Drug Dosing eGFR BUN/Creatinine Ratio Glucose POC Glucose 173 H 110 H 169 H Calcium Phosphorus Magnesium 07/23/24 07/23/24 07:33 05:27 WBC 5.60 RBC 2.85 L Hgb 9.7 L Hct 28.6 L MCV 100.4 H MCH 34.0 MCHC 33.9 RDW Std Deviation 66.3 H RDW Coeff of Glibert 18.6 H Plt Count 75 L MPV 9.9 Sodium 133 L Potassium 4.7 Chloride 103 Carbon Dioxide 26 Anion Gap 4 BUN 47 H Creatinine 1.73 H Est Cr Clr Drug Dosing 31.8 eGFR 37.27 BUN/Creatinine Ratio 27.2 H Glucose 88 POC Glucose 93 Calcium 8.8 Phosphorus 3.9 Magnesium 2.2 PG Care Time/CCT Total # of Minutes Spent Total Time Spent with Patient: Total time spent is greater than 50% in coordination of care (as documented) at patient's floor/unit and/or counseling patient: Coding Level of Care Code 60031 SUB INP/OBS CARE 2/35MIN Diagnoses Ambulatory dysfunction R26.2 Hip hematoma, left S70.02XA Normocytic anemia D64.9 Hyponatremia E87.1 Hyperkalemia E87.5 Sleep disturbances G47.9
[2024-07-24 08:29] VITALS: O2SAT 98
[2024-07-24 16:20] VITALS: RESP 18; TEMP 96.4
--- NOTE | 2024-07-24 16:56 | Discharge Summary ---
Discharge Summary Date of Service July 24, 2024 Principal Dx & Hospital Course #1 = Principal Diagnosis (1) Ambulatory dysfunction: (2) Hip hematoma, left: (3) Normocytic anemia: (4) Hyponatremia: (5) Hyperkalemia: (6) Sleep disturbances: Plan 89 years old male with PMH of DNR/DNI @ home, non-insulin dependent DM2 with HbA1c 7.2%(06/21/2024, 10:31am), chronic euvolemic hyponatremia with b aseline Na range, 127-135 mmol/L (08/03/2023 - 07/23/2024), CKD stage III with baseline creatinine range, 1.42 - 2.1 (05/30/2017 - 06/21/2024), chronic normocytic, normochromic anemia with baseline Hb range, 8.2 - 9.7 g/dL (08/15/2023 - 07/23/2024), CLL, paroxysmal A-fib, IBS, benign colonic polyp x 1 (2022), and left hip hematoma who presented to [facility] ER on 07/14/2024 with recent fall and left hip hematoma. Patient was subsequently admitted to the inpatient hospitalist service @ [facility] on 07/14/2024 with the following diagnoses: 1. Ambulatory dysfunction, s/p mechanical fall. 2. Acute hyperkalemia with K 5.2 mmol/L (07/14/2024, 2:42pm) 3. Chronic euvolemic hyponatremia with Na 127 mmol/L (07/14/2024, 2:42pm). The following medical issues while patient remained in [facility] from admission date 07/14/2024 through discharge 07/24/2024: Ambulatory dysfunction, left hip With recent fall, hip hematoma, knee ecchymosis Doppler negative for DVT Seen by orthopedics. Knee effusion, lower lateral leg hematoma, left hip hematoma all noted. No pain. Appears old, and uninfected. Do not recommend surgery or drainage at this time. Appreciate recommendations - H/H stable at 9 PT/OT saw the patient and recommended acute inpatient rehab @ SNF. Patient initially refused D/C to acute rehab; subsequently, given concerns for frailty further risks of falls and morbidity/mortality with patient at bedside, patient subsequently agreed to acute rehab. Patient subsequently changed his mind and now refuses to be D/C'd to acute rehab for short-term rehab on 07/24/2024. Patient now states that he would like to be discharged back to his home on 07/24/2024 with outpatient home PT/OT Service evaluations to follow. Hence, I complied with the patient's wishes and he was discharged back to his home on 07/24/2024, with outpatient home PT/OT Service evaluations to follow. Acute hyperkalemia with K 5.2 mmol/L (07/14/2024, 2:42pm). RESOLVED. Constipation resolved Chronic euvolemic hyponatremia with Na 127 mmol/L (07/14/2024, 2:42pm). cf., Na 133 mmol/L (07/23/2024, 5:27am). RESOLVED. Hypotension RESOLVED. CKD 3 Baseline creatinine around 1.7 Also with history of right heart failure, last echo LVEF 60 to 65% Dry weight/target weight 165 (75kg) Did have some hyponatremia which improved with Lasix. Suspect some degree of solute depletion separate from his history of right heart failure. Trended and stable - cont oral hydration Anemia, combination of hematoma acute bleeding and iron deficiency Hematoma stable on Eliquis, trend hemoglobin daily Transferrin saturation was low. Ferritin was not low however this may be artificially elevated as a phase reactant in the setting of fall/hematoma While inpatient we will give Venofer. Tolerated first infusion well. May receive up to 300 mg daily x 3 doses max Type II DM Switched to DM2 diet: SSI ordered DVT prophylaxis: Eliquis 2.5 mg twice daily resumed Diet: Heart healthy, low-sodium CODE STATUS: DNR/DNI Disposition: D/C patient back to home with outpatient home PT/OT Service evaluations, as requested by the patient, on 07/24/2024 Discharge time, 35 minutes. Of this time period, 17 minutes were spent in coordinating patient's discharge. Admission HPI Per Admitting Provider * Maxwell Encinas is an 89 years old male who presented to [facility] ER on 07/14/2024 with left hip pain. * * He also had a multitude of complaints including insomnia, ambulatory dysfunction, left leg pain. Difficult to get a good history from the patient as he jumps around in history and difficult to keep him on tasks or what was the main reason he came to the hospital. Appears his biggest complaints is his gait which is shuffling. He fell 2 weeks ago and reports difficulty with gait since then. He bruised his hip and knee following this and having pain on palpation but pain on walking doesn't appear to be the issue. No chest pain, shortness of breath or dizziness. Ambulatory dysfunction appears to be more of a balance issue. He also complains of difficulty sleeping. He reports previous use of clonazepam which was the only thing that worked. This was prescribed again on July 02 although the patient reports he doesn't take this but also for the last 4 nights he has switched between ramelteon and clonazepam. 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 He is supposed to take furosemide PRN per weight gain. He has been taking this daily for the last 2 weeks without much change in his leg edema. Discharge Exam Constitutional General: Comfortable, coherent, cooperative. Wide awake and alert. Not confused, lethargic, or obtunded. Patient speaks in complete, fluent, and articulate sentences without pause, interruption, cough, or wheeze. HEENT: Normocephalic, atraumatic. Pupils equally round and reactive to light. Extra-ocular muscles intact. No nystagmus, gaze paresis, anisocoria, miosis, mydriasis, hyphema, scleral injection, conjunctivitis, or pterygium. No rhinorrhea or otorrhea. No pharyngeal discharge or erythema. Neck: Supple, no stridor, bruit, goiter, hepatojugular reflux. Jugular venous pressure is estimated to be 8 cm above the sternal angle of Lewis, which is es timated to be 5 cm above the level of the right atrium. Lymph: No anterior/posterior cervical, supraclavicular/infraclavicular, axillary, epitrochlear, or inguinal adenopathy. Chest: Symmetric rise and fall with respirations. Lungs: Clear to auscultation and percussion. No audible expiratory wheeze, egophony, pectoriloquy, increase in tactile fremitus, or flatness/dullness to percussion at the bases. Heart: RRR, S1 and S2 noted. No S3 or S4 summation gallop noted. No tripartite friction rub. Grade II/ early systolic murmur @ LLSB without radiation to the carotids, axilla, or back, and which remains invariant in regards to the respiratory cycle. Abdomen: Soft, generalized tenderness, non-distended. No rebound, guarding, Fong's sign, or organomegaly. Bowel sounds sounds auscultated in all 4 quadrants. Extremities: No clubbing, cyanosis, or edema. 2+ pedal pulses bilaterally. Skin: No decubitus ulcer or enanthem or exanthem. Neurology: Alert and oriented to person, place, time, and situation. DTR+ and symmetric. 5/5 motor strength in all 4 extremities, both proximally and distally. No pronator drift. No facial droop. No tremors, tics, or myoclonus. Urology: No castrejon. No urethral discharge. Psychiatry: No suicidal ideation. No homicidal ideation. Discharge Plan Discharge Items Patient Disposition: Home - Home Health Services Reason For Visit: AMBULATORY DYSFUNCTION,HYPONATREMIA Discharge Diagnosis: Chronic ambulatory dysfunction resulting in multiple mechanical falls at home Condition on Discharge: Fair Activity: Resume your previous activity Non-emergency contact: Primary Care Provider Call non-emergency contact if: you have any medication questions Follow-up/Referrals: Raffi Alva MD [Primary Care Provider] - Diet: Heart Healthy, Low Fat and Low Sodium (2gm) Addtl Attending Provider Instructions: See your PCP Dr. Raffi Alva within 7 days of hospital discharge. Pending Studies at Discharge: No Stand-Alone Forms: My [facility], Smoking Cessation Medications and DC Order Prescriptions: Continued (DME) lancets [OneTouch Delica Plus Lancet] 33 gauge misc See Rx Instructions .Route Qty: 100 1RF Rx Instructions: Check blood sugar once a day (DME) OneTouch Verio test strips Strip See Rx Instructions .Route Qty: 100 1RF Rx Instructions: Check blood sugar once a day Eliquis 2.5 mg tablet 2.5 mg PO BID Qty: 180 3RF buspirone 5 mg tablet 5 mg PO HS Qty: 30 5RF Hold Instructions: not helping for sleep levothyroxine 75 mcg tablet 75 mcg PO DAILY Qty: 90 3RF mecobalamin (vitamin B12) 5,000 mcg tablet,disintegrating 2,500 mcg PO Q OTHER DAY Qty: 1 0RF furosemide [Lasix] 40 mg tablet 40 mg PO DAILY PRN (Reason: weight gain, SOB, edema) Qty: 30 2RF atorvastatin 10 mg tablet 10 mg PO QAM Qty: 90 3RF metoprolol succinate 100 mg tablet extended release 24 hr 100 mg PO QAM Qty: 90 3RF docusate sodium [Colace] 100 mg capsule 200 mg PO DAILY clonazepam 0.5 mg tablet 0.5 mg PO HS PRN (Reason: Insomnia) Qty: 20 0RF ramelteon 8 mg tablet 8 mg PO HS Qty: 30 1RF polyethylene glycol 3350 [Miralax] 17 gram/dose powder 17 g PO DAILY PRN (Reason: constipation) Qty: 238 0RF Ocuvite Adult 50 Plus 250 mg (90 mg-160 mg) capsule 1 cap PO DAILY Discharge Orders: Discharge Order (Routine); Ordered 07/24/24 Ordered By: Goran Lee Admission Data Admit Date/Time: 07/14/24 17:38 Attending Provider: Goran Lee Admit Provider: Quinton Quigley Primary Care Provider: Raffi Alva V. Other Providers: Quinton Quigley; Alex Perez Hospital Stay Data Consultations 07/14/24 16:37 ED Decision to Admit Stat 07/15/24 18:11 Consult Orthopedic Surgery Routine Diagnostic Imagining Performed 07/14/24 14:31 CT cervical spine wo con Stat CT head/brain wo con Stat 07/14/24 14:51 CT abd pelvis wo con Stat 07/14/24 15:03 CT facial bones wo con Stat 07/14/24 17:29 US venous doppler LE LT Stat Pending Results Patient Have Any Pending Studies at Discharge: No Discharge Instructions Given to Patient (Per Discharging Provider) See your PCP Dr. Raffi Alva within 7 days of hospital discharge. Total Time Total Time Spent Total Time Spent (In Minutes): 35 Coding Level of Care Code 24011 INP/OBS DISCH >30 MIN Diagnoses Ambulatory dysfunction R26.2 Hip hematoma, left S70.02XA Normocytic anemia D64.9 Hyponatremia E87.1 Hyperkalemia E87.5 Sleep disturbances G47.9
[2024-07-24 16:58] VITALS: BP 96/61; PULSE 77
== END 2024-07-24 18:31 | disposition home health service (06) | DRG 605 ==
LOC: ED 13:39 → EDINP 17:38 → SUATTDRO 17:38 → EDINP 07-15 17:07 → 2W 07-15 17:48

== ENCOUNTER 2024-08-07 23:05 | Inpatient (IN) ==
--- NOTE | 2024-08-07 23:21 | Emergency Department Note ---
Impression & Plan Hypothermia, APPLE (acute kidney injury), Elevated troponin, Contusion of head, Bradycardia, Syncope, Pleural effusion ED Provider Note NAME: HANNAH HE AGE: 89 SEX: M : 1935 ARRIVES VIA: Ambulance INFORMANT: Patient ED PROVIDER(S): Steve Wilkins DO CHIEF COMPLAINT: Syncope HPI: Patient is an 89-year-old male who presents ER via trauma alert with a past medical history of a flutter, diabetes, CKD 4 fall which was syncopal in nature. Per report from EMS son heard the thud and went in and patient was completely out of it. Upon arrival to EMS they brought him in and noted that he passed out 2-3 times prior to getting into the ER. Patient denies any complaints. He does take Coumadin. Denies any headache or change in vision. No chest pain or shortness of breath. No belly pain. No nausea vomiting or diarrhea. No dysuria urgency or frequency. No other exacerbating or remitting factors. ADDITIONAL HISTORY OBTAINED: Per HPI Chronic Medical/Social Conditions Affecting Care: Per HPI PAST MEDICAL HISTORY:See Below PAST SURGICAL HISTORY:See Below FAMILY HISTORY:See Below SOCIAL HISTORY:See Below HOME MEDICATIONS:See Below ALLERGIES:See Below VITALS:See Below PHYSICAL EXAMINATION: GENERAL: alert, disheveled, chronically ill-appearing, cold HEAD: normal cephalic, abrasion to forehead EYE EXAM: normal conjunctiva, PERRL and EOM's grossly intact OROPHARYNX: no exudate, no erythema, lips, buccal mucosa, and tongue normal and mucous membranes are moist EARS: TMs clear b/l NECK: supple, no nuchal rigidity, no adenopathy, non-tender CHEST: stable to compression anteriorly and posteriorly LUNGS: clear to auscultation. Normal chest wall mechanics HEART: no murmurs, S1 normal and S2 normal ABDOMEN: abdomen soft, non-tender, normo-active bowel sounds, no masses, no rebound or guarding. PELVIS: stable to compression anteriorly and posteriorly BACK: Back is symmetrical on inspection and there is no deformity, no midline tenderness, no CVA tenderness. UPPER EXTREMITIES: full active and passive range of motion of all joints without tenderness to palpation LOWER EXTREMITIES: full active and passive range of motion of all joints without tenderness to palpation. Right calf larger than left. Pitting edema bilaterally. NEURO EXAM: Normal sensorium, cranial nerves II-XII grossly intact, normal speech, no gross weakness of arms, no gross weakness of legs. GCS: 15. MEDICAL DECISION MAKING: Patient is an 89-year-old male who presents ER for above-stated complaint. IV was established blood work was obtained. Upon arrival he is found to be hypothermic at 91 degrees. Labs show no significant leukocytosis. Mild anemia 10.9 consistent with previous. Thrombocytopenia at 61 which is again consistent with previous. BMP with a hyponatremia at 126 and hyperkalemia at 5.7. Creatinine at 2.3 up from baseline of 1.8. Lactate was elevated at 3.4. Trope was elevated at 86. Pro-Christiano normal. UA was clean. CT of the head and cervical spine was unremarkable. CT of the chest showed a pleural effusion and CT abdomen pelvis showed ascites. Patient was covered with IV antibiotics. After discussion with the hospitalist patient was given 40 mg of Lasix. Patient was updated bedside. Discussed case with hospitalist for further evaluation management treatment. Consults/Care Managements Discussions: Per [facility] Triage Nursing notes reviewed. Limited review of prior medical records performed Vital Signs: reviewed and remarkable for no significant abnormalities Differential diagnosis: Differential diagnoses include major intracranial, cervical, spinal, thoracic, abdominal, pelvic and neurologic injury. Fracture, contusion, sprain, strain, laceration, abrasions included as well. ER treatment provided: See below Diagnostics interpreted by me include EKG and cardiac monitoring as listed below: -Cardiac Monitoring: An order was placed for continuous cardiac monitoring. The monitor shows a rate of 60 with sinus rhythm. -ECG: Sinus bradycardia rate of 53 Normal axis No PVCs QTc [address] changes in the inferior and lateral leads -Laboratory studies:Interpreted by me as stated above in MDM and shown below. Imaging studies: Xrays: As interpreted by me: Portable AP upright 1 view of the chest shows effusion CTs show: CT trauma scan as described above Procedures: None Critical Care: I have personally spent 45 minutes of critical care time in the direct management of this patient. This includes bedside care, interpretation of diagnostic studies, and testing, discussion with consultants, patient, and family members, and other required patient management activities. This 45 minutes is in excess of all separately billable procedures. Past Med/Surg History Problem List (Updated 08/08/24 @ 01:25 by Steve Wilkins DO) Pleural effusion (Acute) Syncope (Acute) Bradycardia (Acute) Contusion of head (Acute) Elevated troponin (Acute) APPLE (acute kidney injury) (Acute) Hypothermia (Acute) Ambulatory dysfunction Fall Chronic constipation Atrial flutter hx of Cholelithiasis Tricuspid regurgitation Gait disturbance (Chronic) Hypothyroidism Paroxysmal A-fib CLL (chronic lymphocytic leukemia) Thrombocytopenia Vitamin D deficiency Vitamin B12 deficiency Hemorrhoids Health care maintenance Dyslipidemia (Chronic) Idiopathic polyneuropathy Type 2 diabetes mellitus (Chronic) Anemia (Chronic) Irritable bowel syndrome (Chronic) Lower back pain (Chronic) Osteoarthritis (Chronic) Insomnia (Chronic) H/O left mastectomy Hypertension Chronic kidney disease, stage III (moderate) follows with Dr. Abrams Medical History (Updated 08/08/24 @ 01:25 by Steve Wilkins, ) Joint pain in fingers of left hand Hyperkalemia Hip hematoma, left Normocytic anemia Hyponatremia Sleep disturbances CKD (chronic kidney disease) Right heart failure Cellulitis, leg Hematoma of left lower leg Fall at home Anasarca Hyperbilirubinemia Localized swelling of both lower legs Elevated LFTs Non-ST elevation DE (NSTEMI) History of cardioversion 07/18/23, 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 Monae--on BB and eliquis Benign essential hypertension Surgical History (Updated 07/25/24 @ 00:09 by Rj Mccord) History of lymph node excision 01/2023 off right chest History of surgery removal loose body x 2 LLE History of cataract surgery History of left hip replacement History of right hip replacement History of right mastectomy History of colonoscopy Family History Other No family history of adverse response to anesthesia Denies family history of Ovarian cancer Prostate cancer Breast cancer Lung cancer Colorectal cancer Social History (Reviewed 07/16/24 @ 13:43 by NEHEMIAS Jesus Smoking Status: Never smoker Second Hand Exposure: No; Do You Dip or Chew Tobacco: No; Hx Alcohol Use: No Hx Substance Use: No Preferred Language: Moldovan Communication Ability: Effective Visual Impairment: No Limitations Hearing Ability: Normal Physician Executive Required: No Beliefs That Will Affect Care: None marital status: / Current Living Situation: Alone 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 How many Children do You have Comment: one son Feels Safe at Home: Yes Diet: diabetic caffeine: No Physical Activity Frequency: Does not Exercise Seatbelt Use: always Sunscreen Use: No Do you think of yourself as: straight/heterosexual Gender Identity: Male Assistive Devices: Cane and Walker Allergies Allergies Allergy/AdvReac Type Severity Reaction Status Date / Time Sulfa (Sulfonamide Allergy Intermediate HIVES Verified 07/25/24 12:10 Antibiotics) Home Meds Home Medications Medication Instructions Recorded Confirmed [id number] 250 mg-dha 90 1 cap PO DAILY 09/11/23 07/31/24 mg-epa 160 [id number] capsule (Ocuvite Adult 50 Plus) Previous Rx's Medication Instructions Recorded mecobalamin (vitamin B12) 5,000 2,500 mcg (1/2 x 5,000 mcg) PO Q 03/29/23 mcg disintegrating tablet OTHER DAY #1 tab lancets 33 gauge (OneTouch Delica #100 ea 08/18/23 Plus Lancet) polyethylene glycol 3350 17 17 g PO DAILY PRN constipation 12/20/23 gram/dose oral powder (Miralax) #238 grams blood sugar diagnostic (OneTouch #100 ea 12/29/23 Verio test strips) furosemide 40 mg tablet (Lasix) 40 mg PO DAILY PRN weight gain, 01/05/24 SOB, edema #30 tabs atorvastatin 10 mg tablet 10 mg PO QAM #90 tabs 04/11/24 metoprolol succinate 100 mg 100 mg PO QAM #90 tabs 04/11/24 tablet,extended release 24 hr buspirone 5 mg tablet 5 mg PO HS #30 tabs 04/12/24 levothyroxine 75 mcg tablet 75 mcg PO DAILY #90 tabs 06/14/24 clonazepam 0.5 mg tablet 0.5 mg PO HS PRN Insomnia #20 tabs 07/02/24 ramelteon 8 mg tablet 8 mg PO HS #30 tabs 07/02/24 docusate sodium 100 mg capsule 200 mg (2 x 100 mg) PO DAILY #90 07/26/24 (Colace) caps apixaban 2.5 mg tablet (Eliquis) 2.5 mg PO BID #180 tabs 08/07/24 Results & Data (ED) Vital Signs Vital Signs - 24 hr 08/07/24 23:15 08/07/24 23:18 08/07/24 23:18 Temperature 33.0 C L 33 C L Temperature Source Rectal Pulse Rate 52 L 53 L 53 L Pulse Rate [Finger] Pulse Rhythm Regular Pulse Rhythm [Finger] Pulse Strength Normal Pulse Strength [Finger] Respiratory Rate 20 20 20 Respiratory Effort / Characteristics Non-Labored Spontaneous Respiratory Depth Normal Respiratory Pattern Regular Blood Pressure 105/70 105/70 105/70 Blood Pressure [Left Arm] Blood Pressure Mean 81 81 Blood Pressure Mean [Left Arm] Blood Pressure Position Lying Blood Pressure Position [Left Arm] Pulse Oximetry 97 99 99 Oxygen Delivery Method Room Air Room Air Room Air Oxygen Flow Rate 0 Sepsis Recent Fever Within 48 Hours No Sepsis New/Unexplained Change in Mental Status N/A Sepsis Action Taken by Nursing No Action Required 08/07/24 23:27 08/07/24 23:45 08/07/24 23:45 Temperature Temperature Source Pulse Rate 53 L 53 L Pulse Rate [Finger] Pulse Rhythm Regular Pulse Rhythm [Finger] Pulse Strength Pulse Strength [Finger] Respiratory Rate 20 Respiratory Effort / Characteristics Respiratory Depth Respiratory Pattern Blood Pressure Blood Pressure [Left Arm] Blood Pressure Mean Blood Pressure Mean [Left Arm] Blood Pressure Position Blood Pressure Position [Left Arm] Pulse Oximetry 99 Oxygen Delivery Method Room Air Room Air Oxygen Flow Rate Sepsis Recent Fever Within 48 Hours Sepsis New/Unexplained Change in Mental Status Sepsis Action Taken by Nursing 08/07/24 23:45 08/07/24 23:45 08/08/24 00:00 Temperature 31.8 C L Temperature Source [place] [facility] ( Temp Sensing) Pulse Rate 53 L Pulse Rate [Finger] 53 L 53 L Pulse Rhythm Pulse Rhythm [Finger] Regular Regular Pulse Strength Pulse Strength [Finger] Normal Normal Respiratory Rate 20 20 20 Respiratory Effort / Characteristics Non-Labored Spontaneous Respiratory Depth Normal Normal Respiratory Pattern Blood Pressure 124/81 Blood Pressure [Left Arm] 124/78 99/70 L Blood Pressure Mean 95 Blood Pressure Mean [Left Arm] 93 79 Blood Pressure Position Blood Pressure Position [Left Arm] Lying Pulse Oximetry 99 97 99 Oxygen Delivery Method Room Air Room Air Room Air Oxygen Flow Rate Sepsis Recent Fever Within 48 Hours Sepsis New/Unexplained Change in Mental Status Sepsis Action Taken by Nursing 08/08/24 00:14 08/08/24 00:15 08/08/24 00:30 Temperature 32.1 C L 33.0 C L Temperature Source [place] [facility] ( Temp Sensing) [place] [facility] ( Temp Sensing) Pulse Rate Pulse Rate [Finger] 53 L 53 L 53 L Pulse Rhythm Pulse Rhythm [Finger] Regular Regular Regular Pulse Strength Pulse Strength [Finger] Normal Normal Normal Respiratory Rate 20 20 20 Respiratory Effort / Characteristics Non-Labored Spontaneous Non-Labored Spontaneous Respiratory Depth Normal Normal Normal Respiratory Pattern Regular Regular Blood Pressure Blood Pressure [Left Arm] 115/70 115/70 101/71 Blood Pressure Mean Blood Pressure Mean [Left Arm] 85 85 81 Blood Pressure Position Blood Pressure Position [Left Arm] Lying Lying Pulse Oximetry 99 99 99 Oxygen Delivery Method Room Air Room Air Room Air Oxygen Flow Rate Sepsis Recent Fever Within 48 Hours Sepsis New/Unexplained Change in Mental Status Sepsis Action Taken by Nursing 08/08/24 00:46 Temperature 33.1 C L Temperature Source [place] [facility] ( Temp Sensing) Pulse Rate Pulse Rate [Finger] 53 L Pulse Rhythm Pulse Rhythm [Finger] Pulse Strength Pulse Strength [Finger] Respiratory Rate 14 Respiratory Effort / Characteristics Non-Labored Spontaneous Respiratory Depth Normal Respiratory Pattern Regular Blood Pressure Blood Pressure [Left Arm] 102/67 Blood Pressure Mean Blood Pressure Mean [Left Arm] 78 Blood Pressure Position Blood Pressure Position [Left Arm] Semi-fowlers Pulse Oximetry 94 Oxygen Delivery Method Room Air Oxygen Flow Rate Sepsis Recent Fever Within 48 Hours Sepsis New/Unexplained Change in Mental Status Sepsis Action Taken by Nursing Laboratory Data 08/07/24 23:14 08/07/24 23:14 Lab Results 08/07/24 08/07/24 08/07/24 Range/Units 23:13 23:14 23:25 WBC 6.23 (4.8-10.8) K/ul RBC 3.15 L (4.70-6.10) M/uL Hgb 10.9 L (14.0-18.0) g/dl Hct 32.5 L (42.0-52.0) % MCV 103.2 H (80.0-100.0) fL MCH 34.6 H (25.0-34.0) pg MCHC 33.5 (32.0-36.0) g/dL RDW Std Deviation 76.8 H (36.4-46.3) fL RDW Coeff of Gilbert 20.3 H (11.5-14.5) % Plt Count 61 L (130-400) K/uL MPV 12.5 H (9.4-12.4) fL Immature Gran % (Auto) 1.4 % Neut % (Auto) 79.0 % Lymph % (Auto) 11.1 % [place] % (Auto) 7.9 % Eos % (Auto) 0.3 % Baso % (Auto) 0.3 % Neut # (Auto) 4.92 (1.40-6.50) K/uL Lymph # (Auto) 0.69 L (1.20-3.40) K/uL [place]aston # (Auto) 0.49 (0.11-0.59) K/uL Eos # (Auto) 0.02 (0.00-0.50) K/uL Baso # (Auto) 0.02 (0.00-0.20) K/uL Immature Gran # (Auto) 0.09 (0.01-0.20) K/uL Absolute Nucleated RBC 0.05 (0.00-0.12) K/uL Nucleated RBC % (auto) 0.8 % Toxic Vacuolation 1+ Polychromasia 1+ Basophilic Stippling 1+ Anisocytosis Present Echinocytes 1+ Acanthocytes (Spur) 1+ PT 15.8 H (9.0-12.0) Seconds INR 1.5 H (0.9-1.1) Sodium 126 L (136-145) mmol/L Potassium 5.7 H (3.5-5.1) mmol/L Chloride 97 L (98-107) mmol/L Carbon Dioxide 18 L (21-32) mmol/L Anion Gap 11 (3-11) BUN 65 H (6-23) mg/dl Creatinine 2.32 H (0.6-1.4) mg/dl Est Cr Clr Drug Dosing Not Reportable eGFR 26.21 BUN/Creatinine Ratio 28.0 H (10-20) Glucose 113 H (70-99(Fasting)) mg/dl Lactate 3.4 H* (0.4-2.0) mmol/L Calcium 8.7 (8.6-10.3) mg/dl Magnesium 2.5 H (1.7-2.4) mg/dl Total Bilirubin 3.6 H (0.2-1.0) mg/dl Direct Bilirubin 1.0 H (0-0.2) mg/dl AST 38 (13-39) U/L ALT 21 (7-52) U/L Alkaline Phosphatase 81 (34-104) U/L Troponin I High Sens 86.4 H* (0-20) pg/ml B-Natriuretic Peptide 669 H (0-100) pg/ml Total Protein 6.5 (6.0-8.3) gm/dl Albumin 4.1 (3.4-5.0) gm/dl Procalcitonin 0.06 (0-0.5) ng/ml Urine Color Urine Appearance (Clear) Urine pH (4.5-7.5) Ur Specific [place] (1.000-1.030) Urine Protein (Negative) Urine Glucose (UA) (Negative) Urine Ketones (Negative) Urine Blood (Negative) Urine Nitrite (Negative) Urine Bilirubin (Negative) Urine Urobilinogen (Negative) Ur Leukocyte Esterase (Negative) Urine WBC (Auto) (0-5) /hpf Urine RBC (Auto) (0-2) /hpf U Hyaline Cast (Auto) (0-2) /lpf U Epithel Cells (Auto) (0-2) /hpf Urine Bacteria (Auto) (None Seen) Hyaline Casts (None Presnt) /lpf 08/08/24 Range/Units 00:15 WBC (4.8-10.8) K/ul RBC (4.70-6.10) M/uL Hgb (14.0-18.0) g/dl Hct (42.0-52.0) % MCV (80.0-100.0) fL MCH (25.0-34.0) pg MCHC (32.0-36.0) g/dL RDW Std Deviation (36.4-46.3) fL RDW Coeff of Gilbert (11.5-14.5) % Plt Count (130-400) K/uL MPV (9.4-12.4) fL Immature Gran % (Auto) % Neut % (Auto) % Lymph % (Auto) % [place]aston % (Auto) % Eos % (Auto) % Baso % (Auto) % Neut # (Auto) (1.40-6.50) K/uL Lymph # (Auto) (1.20-3.40) K/uL [place]aston # (Auto) (0.11-0.59) K/uL Eos # (Auto) (0.00-0.50) K/uL Baso # (Auto) (0.00-0.20) K/uL Immature Gran # (Auto) (0.01-0.20) K/uL Absolute Nucleated RBC (0.00-0.12) K/uL Nucleated RBC % (auto) % Toxic Vacuolation Polychromasia Basophilic Stippling Anisocytosis Echinocytes Acanthocytes (Spur) PT (9.0-12.0) Seconds INR (0.9-1.1) Sodium (136-145) mmol/L Potassium (3.5-5.1) mmol/L Chloride (98-107) mmol/L Carbon Dioxide (21-32) mmol/L Anion Gap (3-11) BUN (6-23) mg/dl Creatinine (0.6-1.4) mg/dl Est Cr Clr Drug Dosing eGFR BUN/Creatinine Ratio (10-20) Glucose (70-99(Fasting)) mg/dl Lactate (0.4-2.0) mmol/L Calcium (8.6-10.3) mg/dl Magnesium (1.7-2.4) mg/dl Total Bilirubin (0.2-1.0) mg/dl Direct Bilirubin (0-0.2) mg/dl AST (13-39) U/L ALT (7-52) U/L Alkaline Phosphatase (34-104) U/L Troponin I High Sens (0-20) pg/ml B-Natriuretic Peptide (0-100) pg/ml Total Protein (6.0-8.3) gm/dl Albumin (3.4-5.0) gm/dl Procalcitonin (0-0.5) ng/ml Urine Color Yellow Urine Appearance Clear (Clear) Urine pH 5.0 (4.5-7.5) Ur Specific [place] 1.016 (1.000-1.030) Urine Protein 2+ H (Negative) Urine Glucose (UA) Negative (Negative) Urine Ketones Trace H (Negative) Urine Blood Negative (Negative) Urine Nitrite Negative (Negative) Urine Bilirubin Negative (Negative) Urine Urobilinogen Negative (Negative) Ur Leukocyte Esterase Negative (Negative) Urine WBC (Auto) 6-10 H (0-5) /hpf Urine RBC (Auto) 0-2 (0-2) /hpf U Hyaline Cast (Auto) 6-10 H (0-2) /lpf U Epithel Cells (Auto) 0-2 (0-2) /hpf Urine Bacteria (Auto) None Seen (None Seen) Hyaline Casts Present A (None Presnt) /lpf Imaging Data Radiologist's Impression: Cervical Spine CT 08/07/24 23:13 Exam(s): CT C SPINE EXAM: CT Cervical Spine Without Intravenous Contrast CLINICAL HISTORY: fall. TECHNIQUE: Axial computed tomography images of the cervical spine without intravenous contrast. CTDI is 25.83 mGy and DLP is 526.61 mGy-cm. Automated exposure control was utilized for the study. A dose lowering technique was utilized adhering to the principles of ALARA. COMPARISON: No relevant prior studies available. FINDINGS: Vertebrae: The cervical vertebral bodies are intact without acute traumatic injury. 2 mm anterolisthesis involving C3 on C4. 1-2 mm retrolisthesis involving C4 on C5. There is straightening of the normal cervical lordosis, presumably related to positioning or muscle spasm. The pedicles, facet joints, spinous processes and transverse processes are intact. Diffuse facet hypertrophic arthropathy noted bilaterally. Discs/spinal canal/neural foramina: Diffuse disc space narrowing with marginal hypertrophic osteophyte changes. This results in chronic appearing moderate osseous canal narrowing at the 4 5 and C5-6. Soft tissues: Unremarkable. IMPRESSION: No acute osseous traumatic injury or significant abnormal alignment involving the cervical spine. Chronic appearing prominent diffuse degenerative changes noted. Electronically signed by: Claudio Brown MD 08/08/24 00:[address] 08/07/24 23:13 Exam(s): CT HEAD Without Contrast EXAM: CT Head Without Intravenous Contrast CLINICAL HISTORY: fall. TECHNIQUE: Axial computed tomography images of the head/brain without intravenous contrast. CTDI is 37.69 mGy and DLP is 702.46 mGy-cm. Automated exposure control was utilized for the study. A dose lowering technique was utilized adhering to the principles of ALARA. COMPARISON: No relevant prior studies available. FINDINGS: Brain: There are a few areas of decreased attenuation in the deep cerebral white matter consistent with mild small vessel ischemic/degenerative changes. The cerebral and cerebellar sulci are mildly prominent consistent with mild brain atrophy. No intracranial hemorrhage. No significant mass-effect. No cortical infarct. Ventricles: Unremarkable. No ventriculomegaly. Bones/joints: Unremarkable. No acute fracture. Soft tissues: No significant overlying acute traumatic soft tissue abnormality. No radiopaque foreign body. Sinuses: Unremarkable as visualized. No acute sinusitis. Mastoid air cells: Unremarkable as visualized. No mastoid effusion. IMPRESSION: No acute intracranial process identified. Incidental chronic appearing presumed age-related findings. Electronically signed by: Claudio Brown MD 08/08/24 00:12 AM Pelvis X-Ray 08/07/24 23:13 Exam(s): XR PELVIS, 1-2 views EXAM: XR Pelvis, 1 or 2 Views CLINICAL HISTORY: trauma. TECHNIQUE: Frontal view of the pelvis. COMPARISON: CT abdomen and pelvis dated 07/14/2024 FINDINGS: Bones/joints: Remote traumatic changes involving the left. Inferior pubic rami, stable. The pelvic bones appear intact. Bilateral hip arthroplasties. The femoral head component superior well aligned within the acetabular components. No acute fracture. Soft tissues: Unremarkable. IMPRESSION: No acute osseous traumatic injury involving the pelvis. Electronically signed by: Claudio Brown MD 08/07/24 23:55 PM Chest X-Ray 08/07/24 23:14 Exam(s): XR CXR 1 VIEW EXAM: XR Chest, 1 View CLINICAL HISTORY: Sepsis. TECHNIQUE: Frontal view of the chest. COMPARISON: Portable chest single view 07/14/2024 FINDINGS: Lungs: There is a new asymmetric veiling opacity overlying the left lung with a suggestion of a developing pleural effusion and superior laterally at the apex. The right lung is well aerated. Pleural space: As above. No left pleural effusion. No pneumothorax. Heart: The cardiac silhouette is stable in size. Mediastinum: The mediastinal contours are stable and unremarkable. The trachea is midline. Incidental similar calcification of the aortic arch. Bones/joints: Unremarkable. No acute fracture. IMPRESSION: There is a new asymmetric veiling opacity overlying the left lung with a suggestion of a developing pleural effusion and superior laterally at the apex. The veiling opacity may represent atelectasis or layering effusion. The right lung is well aerated. Electronically signed by: Claudio Brown MD 08/07/24 23:53 PM Abdomen/Pelvis CT 08/07/24 23:16 Exam(s): CT ABDOMEN + PELVIS Without Contrast EXAM: CT Abdomen and Pelvis Without Intravenous Contrast CLINICAL HISTORY: trauma. TECHNIQUE: Axial computed tomography images of the abdomen and pelvis without intravenous contrast. CTDI is 37.69 mGy and DLP is 3235.72 mGy-cm. Automated exposure control was utilized for the study. A dose lowering technique was utilized adhering to the principles of ALARA. COMPARISON: CT abdomen and pelvis without contrast dated 5 FINDINGS: Artifacts: Scatter artifact likely related to patient's arm position. Limitations: Evaluation is limited by diffuse respiratory artifact and lack of IV contrast. Lung bases: For findings regarding the lung bases, please see the CT report of the chest performed concurrently. ABDOMEN: Liver: The unenhanced liver is grossly unremarkable without evidence for traumatic injury. Gallbladder and bile ducts: Layering hyperdense granular gallstones or sludge noted in the gallbladder. Evaluation of the gallbladder wall is limited with perihepatic fluid. No biliary dilatation. Pancreas: The unenhanced pancreas is grossly stable. No definite peripancreatic inflammatory changes. No ductal dilation. Spleen: The spleen is grossly unremarkable, accounting for perisplenic fluid. Adrenals: Unremarkable. No mass. Kidneys and ureters: The kidneys are slightly atrophic in appearance. Similar perinephric fat stranding. No evidence for traumatic injury. No obstructing stones. No hydronephrosis. Stomach and bowel: No evidence for bowel obstruction. Evaluation for traumatic bowel injury is somewhat limited. No obvious mesenteric contusive injury. PELVIS: Appendix: No findings to suggest acute appendicitis. Bladder: Unremarkable. No stones. Reproductive: Unremarkable as visualized. ABDOMEN and PELVIS: Intraperitoneal space: Mild free fluid noted throughout the abdomen and pelvis, slightly increased in volume from the previous examination. The fluid is hypodense without evidence for a layering hematocrit. No free air. Retroperitoneal space: No evidence for retroperitoneal hematoma. Bones/joints: Diffuse degenerative changes throughout the thoracolumbar spine, stable. No acute osseous abnormality. Remote traumatic healed fractures involving the left superior and inferior pubic rami. No acute pelvic bone fracture. Bilateral total hip arthroplasty is noted. Imaging through the inferior margin of the components was not performed. However, no periprosthetic lucency, were included. Soft tissues: Diffuse soft tissue edema suggesting anasarca. Vasculature: Atherosclerotic calcification of the aorta, stable. No acute periaortic abnormality. No abdominal aortic aneurysm. Lymph nodes: Unremarkable. No enlarged lymph nodes. IMPRESSION: 1. Limited by diffuse respiratory artifact and lack of IV contrast. 2. No obvious intraperitoneal or retroperitoneal solid organ injury, accounting for limitations. 3. mild free fluid noted throughout the abdomen and pelvis, slightly increased in volume from the previous examination. The fluid is hypodense without evidence for a layering hematocrit. Suspect incidental ascites. 2. Diffuse soft tissue edema suggesting anasarca, more prominent than on the previous examination. Electronically signed by: Claudio Brown MD 08/08/24 00:[address] 08/07/24 23:16 Exam(s): CT CHEST Without Contrast EXAM: CT Chest Without Intravenous Contrast CLINICAL HISTORY: trauma. TECHNIQUE: Axial computed tomography images of the chest without intravenous contrast. CTDI is 37.69 mGy and DLP is 3235.72 mGy-cm. Automated exposure control was utilized for the study. A dose lowering technique was utilized adhering to the principles of ALARA. COMPARISON: No relevant prior studies available. FINDINGS: Lungs: Unremarkable. No mass. No consolidation. Pleural space: There is a moderate layering right pleural effusion extending along the length of the right hemithorax. The pleural effusion is hypodense without layering hematocrit. No pulmonary contusive injury noted with minimal subsegmental changes lung bases and involving the posterior right lung adjacent pleural effusion. No pneumothorax. Heart: The cardiac chambers are globally enlarged. Incidental minimal gas noted in the right ventricle, presumably from intravenous injection. Trace pericardial effusion in the superior pericardial recess. No significant coronary artery calcifications. Bones/joints: Minimally displaced fracture through the lateral left eighth rib. The thoracic vertebral bodies are intact without acute traumatic injury. Incidental chronic anterior wedging at T5-T8 levels with slightly accentuated kyphosis. No right-sided acute rib fracture. No dislocation. Soft tissues: Unremarkable. Vasculature: The ascending aorta is ectatic, with the mid ascending aorta measuring 3.8 x 3.6 cm. The aortic arch and descending aorta are normal in caliber. Moderate atherosclerotic calcification. No thoracic aortic aneurysm. Lymph nodes: Unremarkable. No enlarged lymph nodes. IMPRESSION: 1. Minimally displaced fracture through the lateral left eighth rib. No other acute osseous abnormality noted. 2. There is a moderate layering right pleural effusion extending along the length of the right hemithorax. The pleural effusion is hypodense without layering hematocrit. 3. No other evidence for significant acute traumatic injury to the unenhanced chest/thorax. Electronically signed by: Claudio Brown MD 08/08/24 00:22 AM Discharge Plan Visit Data Chief Complaint: Trauma Stated Complaint: FALL ED Provider: Steve Wilkins Discharge Problem: Hypothermia, APPLE (acute kidney injury), Elevated troponin, Contusion of head, Bradycardia, Syncope, Pleural effusion Forms Stand Alone Forms: [facility] Prescriptions Prescriptions: No Action (DME) lancets [OneTouch Delica Plus Lancet] 33 gauge misc See Rx Instructions .Route Qty: 100 1RF Rx Instructions: Check blood sugar once a day (DME) OneTouch Verio test strips Strip See Rx Instructions .Route Qty: 100 1RF Rx Instructions: Check blood sugar once a day buspirone 5 mg tablet 5 mg PO HS Qty: 30 5RF Hold Instructions: not helping for sleep levothyroxine 75 mcg tablet 75 mcg PO DAILY Qty: 90 3RF Eliquis 2.5 mg tablet 2.5 mg PO BID Qty: 180 3RF mecobalamin (vitamin B12) 5,000 mcg tablet,disintegrating 2,500 mcg PO Q OTHER DAY Qty: 1 0RF furosemide [Lasix] 40 mg tablet 40 mg PO DAILY PRN (Reason: weight gain, SOB, edema) Qty: 30 2RF atorvastatin 10 mg tablet 10 mg PO QAM Qty: 90 3RF metoprolol succinate 100 mg tablet extended release 24 hr 100 mg PO QAM Qty: 90 3RF clonazepam 0.5 mg tablet 0.5 mg PO HS PRN (Reason: Insomnia) Qty: 20 0RF ramelteon 8 mg tablet 8 mg PO HS Qty: 30 1RF polyethylene glycol 3350 [Miralax] 17 gram/dose powder 17 g PO DAILY PRN (Reason: constipation) Qty: 238 0RF docusate sodium [Colace] 100 mg capsule 200 mg PO DAILY Qty: 90 0RF Rx Instructions: Taking [employer] brand of docusate sodium- Ocuvite Adult 50 Plus 250 mg (90 mg-160 mg) capsule 1 cap PO DAILY Referrals Referrals: Raffi Alva MD [Primary Care Provider] - Discharge Problem: Hypothermia Qualifiers: Encounter type: initial encounter Qualified Code(s): T68.XXXA - Hypothermia, initial encounter Contusion of head Qualifiers: Encounter type: initial encounter Contusion of head detail: unspecified part of head Qualified Code(s): S00.93XA - Contusion of unspecified part of head, initial encounter Syncope Qualifiers: Syncope type: unspecified Qualified Code(s): R55 - Syncope and collapse
--- NOTE | 2024-08-07 23:54 | XRay Report ---
Exam(s): XR CXR 1 VIEW EXAM: XR Chest, 1 View CLINICAL HISTORY: Sepsis. TECHNIQUE: Frontal view of the chest. COMPARISON: Portable chest single view 07/14/2024 FINDINGS: Lungs: There is a new asymmetric veiling opacity overlying the left lung with a suggestion of a developing pleural effusion and superior laterally at the apex. The right lung is well aerated. Pleural space: As above. No left pleural effusion. No pneumothorax. Heart: The cardiac silhouette is stable in size. Mediastinum: The mediastinal contours are stable and unremarkable. The trachea is midline. Incidental similar calcification of the aortic arch. Bones/joints: Unremarkable. No acute fracture. IMPRESSION: There is a new asymmetric veiling opacity overlying the left lung with a suggestion of a developing pleural effusion and superior laterally at the apex. The veiling opacity may represent atelectasis or layering effusion. The right lung is well aerated. Electronically signed by: Claudio Brown MD 08/07/24 23:53 PM
--- NOTE | 2024-08-07 23:56 | XRay Report ---
Exam(s): XR PELVIS, 1-2 views EXAM: XR Pelvis, 1 or 2 Views CLINICAL HISTORY: trauma. TECHNIQUE: Frontal view of the pelvis. COMPARISON: CT abdomen and pelvis dated 07/14/2024 FINDINGS: Bones/joints: Remote traumatic changes involving the left. Inferior pubic rami, stable. The pelvic bones appear intact. Bilateral hip arthroplasties. The femoral head component superior well aligned within the acetabular components. No acute fracture. Soft tissues: Unremarkable. IMPRESSION: No acute osseous traumatic injury involving the pelvis. Electronically signed by: Claudio Brown MD 08/07/24 23:55 PM
[2024-08-08 00:02] LABS: Basophils # (auto) 0.02 K/uL (0.00-0.20); Basophils % (auto) 0.3 %; Eosinophils # (auto) 0.02 K/uL (0.00-0.50); Eosinophils % (auto) 0.3 %; Hematocrit (blood only) 32.5 % (42.0-52.0); Hemoglobin 10.9 g/dl (14.0-18.0); Immature Granulocytes # (auto) 0.09 K/uL (0.01-0.20); Immature Granulocytes % (auto) 1.4 %; Lymphocytes # (auto) 0.69 K/uL (1.20-3.40); Lymphocytes % (auto) 11.1 %; Mean Corpuscular Hemoglobin 34.6 pg (25.0-34.0); Mean Corpuscular Hgb Conc 33.5 g/dL (32.0-36.0); Mean Corpuscular Volume 103.2 fL (80.0-100.0); Mean Platelet Volume 12.5 fL (9.4-12.4); Monocytes # (auto) 0.49 K/uL (0.11-0.59); Monocytes % (auto) 7.9 %; Neutrophils # (auto) 4.92 K/uL (1.40-6.50); Nucleated RBC # (auto) 0.05 K/uL (0.00-0.12); Nucleated RBC % (auto) 0.8 %; Platelet Count 61 K/uL (130-400); RDW Coefficient of Variation 20.3 % (11.5-14.5); RDW Standard Deviation 76.8 fL (36.4-46.3); Red Blood Count 3.15 M/uL (4.70-6.10); White Blood Count 6.23 K/ul (4.8-10.8)
[2024-08-08 00:04] LABS: Alanine Aminotransferase 21 U/L (7-52); Albumin Level 4.1 gm/dl (3.4-5.0); Alkaline Phosphatase 81 U/L (34-104); Anion Gap 11 (3-11); Aspartate Aminotransferase 38 U/L (13-39); Bilirubin,Total 3.6 mg/dl (0.2-1.0); Blood Urea Nitrogen 65 mg/dl (6-23); Calcium 8.7 mg/dl (8.6-10.3); Carbon Dioxide 18 mmol/L (21-32); Chloride 97 mmol/L (98-107); Glucose 113 mg/dl (70-99(Fasting)); Magnesium 2.5 mg/dl (1.7-2.4); Potassium 5.7 mmol/L (3.5-5.1); Sodium 126 mmol/L (136-145); Total Protein 6.5 gm/dl (6.0-8.3)
--- NOTE | 2024-08-08 00:12 | CT Scan Report ---
Exam(s): CT C SPINE EXAM: CT Cervical Spine Without Intravenous Contrast CLINICAL HISTORY: fall. TECHNIQUE: Axial computed tomography images of the cervical spine without intravenous contrast. CTDI is 25.83 mGy and DLP is 526.61 mGy-cm. Automated exposure control was utilized for the study. A dose lowering technique was utilized adhering to the principles of ALARA. COMPARISON: No relevant prior studies available. FINDINGS: Vertebrae: The cervical vertebral bodies are intact without acute traumatic injury. 2 mm anterolisthesis involving C3 on C4. 1-2 mm retrolisthesis involving C4 on C5. There is straightening of the normal cervical lordosis, presumably related to positioning or muscle spasm. The pedicles, facet joints, spinous processes and transverse processes are intact. Diffuse facet hypertrophic arthropathy noted bilaterally. Discs/spinal canal/neural foramina: Diffuse disc space narrowing with marginal hypertrophic osteophyte changes. This results in chronic appearing moderate osseous canal narrowing at the 4 5 and C5-6. Soft tissues: Unremarkable. IMPRESSION: No acute osseous traumatic injury or significant abnormal alignment involving the cervical spine. Chronic appearing prominent diffuse degenerative changes noted. Electronically signed by: Claudio Brown MD 08/08/24 00:11 AM
--- NOTE | 2024-08-08 00:14 | CT Scan Report ---
Exam(s): CT HEAD Without Contrast EXAM: CT Head Without Intravenous Contrast CLINICAL HISTORY: fall. TECHNIQUE: Axial computed tomography images of the head/brain without intravenous contrast. CTDI is 37.69 mGy and DLP is 702.46 mGy-cm. Automated exposure control was utilized for the study. A dose lowering technique was utilized adhering to the principles of ALARA. COMPARISON: No relevant prior studies available. FINDINGS: Brain: There are a few areas of decreased attenuation in the deep cerebral white matter consistent with mild small vessel ischemic/degenerative changes. The cerebral and cerebellar sulci are mildly prominent consistent with mild brain atrophy. No intracranial hemorrhage. No significant mass-effect. No cortical infarct. Ventricles: Unremarkable. No ventriculomegaly. Bones/joints: Unremarkable. No acute fracture. Soft tissues: No significant overlying acute traumatic soft tissue abnormality. No radiopaque foreign body. Sinuses: Unremarkable as visualized. No acute sinusitis. Mastoid air cells: Unremarkable as visualized. No mastoid effusion. IMPRESSION: No acute intracranial process identified. Incidental chronic appearing presumed age-related findings. Electronically signed by: Claudio Brown MD 08/08/24 00:12 AM
[2024-08-08 00:15] LABS: Troponin I High Sensitivity 86.4 pg/ml (0-20)
--- NOTE | 2024-08-08 00:19 | CT Scan Report ---
Exam(s): CT ABDOMEN + PELVIS Without Contrast EXAM: CT Abdomen and Pelvis Without Intravenous Contrast CLINICAL HISTORY: trauma. TECHNIQUE: Axial computed tomography images of the abdomen and pelvis without intravenous contrast. CTDI is 37.69 mGy and DLP is 3235.72 mGy-cm. Automated exposure control was utilized for the study. A dose lowering technique was utilized adhering to the principles of ALARA. COMPARISON: CT abdomen and pelvis without contrast dated 5 FINDINGS: Artifacts: Scatter artifact likely related to patient's arm position. Limitations: Evaluation is limited by diffuse respiratory artifact and lack of IV contrast. Lung bases: For findings regarding the lung bases, please see the CT report of the chest performed concurrently. ABDOMEN: Liver: The unenhanced liver is grossly unremarkable without evidence for traumatic injury. Gallbladder and bile ducts: Layering hyperdense granular gallstones or sludge noted in the gallbladder. Evaluation of the gallbladder wall is limited with perihepatic fluid. No biliary dilatation. Pancreas: The unenhanced pancreas is grossly stable. No definite peripancreatic inflammatory changes. No ductal dilation. Spleen: The spleen is grossly unremarkable, accounting for perisplenic fluid. Adrenals: Unremarkable. No mass. Kidneys and ureters: The kidneys are slightly atrophic in appearance. Similar perinephric fat stranding. No evidence for traumatic injury. No obstructing stones. No hydronephrosis. Stomach and bowel: No evidence for bowel obstruction. Evaluation for traumatic bowel injury is somewhat limited. No obvious mesenteric contusive injury. PELVIS: Appendix: No findings to suggest acute appendicitis. Bladder: Unremarkable. No stones. Reproductive: Unremarkable as visualized. ABDOMEN and PELVIS: Intraperitoneal space: Mild free fluid noted throughout the abdomen and pelvis, slightly increased in volume from the previous examination. The fluid is hypodense without evidence for a layering hematocrit. No free air. Retroperitoneal space: No evidence for retroperitoneal hematoma. Bones/joints: Diffuse degenerative changes throughout the thoracolumbar spine, stable. No acute osseous abnormality. Remote traumatic healed fractures involving the left superior and inferior pubic rami. No acute pelvic bone fracture. Bilateral total hip arthroplasty is noted. Imaging through the inferior margin of the components was not performed. However, no periprosthetic lucency, were included. Soft tissues: Diffuse soft tissue edema suggesting anasarca. Vasculature: Atherosclerotic calcification of the aorta, stable. No acute periaortic abnormality. No abdominal aortic aneurysm. Lymph nodes: Unremarkable. No enlarged lymph nodes. IMPRESSION: 1. Limited by diffuse respiratory artifact and lack of IV contrast. 2. No obvious intraperitoneal or retroperitoneal solid organ injury, accounting for limitations. 3. mild free fluid noted throughout the abdomen and pelvis, slightly increased in volume from the previous examination. The fluid is hypodense without evidence for a layering hematocrit. Suspect incidental ascites. 2. Diffuse soft tissue edema suggesting anasarca, more prominent than on the previous examination. Electronically signed by: Claudio Brown MD 08/08/24 00:18 AM
--- NOTE | 2024-08-08 00:23 | CT Scan Report ---
Exam(s): CT CHEST Without Contrast EXAM: CT Chest Without Intravenous Contrast CLINICAL HISTORY: trauma. TECHNIQUE: Axial computed tomography images of the chest without intravenous contrast. CTDI is 37.69 mGy and DLP is 3235.72 mGy-cm. Automated exposure control was utilized for the study. A dose lowering technique was utilized adhering to the principles of ALARA. COMPARISON: No relevant prior studies available. FINDINGS: Lungs: Unremarkable. No mass. No consolidation. Pleural space: There is a moderate layering right pleural effusion extending along the length of the right hemithorax. The pleural effusion is hypodense without layering hematocrit. No pulmonary contusive injury noted with minimal subsegmental changes lung bases and involving the posterior right lung adjacent pleural effusion. No pneumothorax. Heart: The cardiac chambers are globally enlarged. Incidental minimal gas noted in the right ventricle, presumably from intravenous injection. Trace pericardial effusion in the superior pericardial recess. No significant coronary artery calcifications. Bones/joints: Minimally displaced fracture through the lateral left eighth rib. The thoracic vertebral bodies are intact without acute traumatic injury. Incidental chronic anterior wedging at T5-T8 levels with slightly accentuated kyphosis. No right-sided acute rib fracture. No dislocation. Soft tissues: Unremarkable. Vasculature: The ascending aorta is ectatic, with the mid ascending aorta measuring 3.8 x 3.6 cm. The aortic arch and descending aorta are normal in caliber. Moderate atherosclerotic calcification. No thoracic aortic aneurysm. Lymph nodes: Unremarkable. No enlarged lymph nodes. IMPRESSION: 1. Minimally displaced fracture through the lateral left eighth rib. No other acute osseous abnormality noted. 2. There is a moderate layering right pleural effusion extending along the length of the right hemithorax. The pleural effusion is hypodense without layering hematocrit. 3. No other evidence for significant acute traumatic injury to the unenhanced chest/thorax. Electronically signed by: Claudio Brown MD 08/08/24 00:22 AM
[2024-08-08 00:27] LABS: INR 1.5 (0.9-1.1); Prothrombin Time 15.8 Seconds (9.0-12.0)
[2024-08-08 00:29] LABS: Acanthocytes 1+; Anisocytosis Present; Basophilic Stippling 1+; Echinocytes 1+; Polychromasia 1+; Toxic Vacuolation 1+
--- NOTE | 2024-08-08 01:13 | History & Physical Report ---
Date of Service August 08, 2024 Assessment & Plan (1) Syncope: (2) Contusion of head: (3) Hypothermia: (4) Paroxysmal A-fib: (5) Dyslipidemia: (6) Type 2 diabetes mellitus: (7) Hypertension: (8) Chronic kidney disease, stage III (moderate): (9) Pleural effusion: Plan 89-year-old Male with History of Atrial Fibrillation on Anticoagulation, Hypertension, Diabetes, CLL, CKD Presenting from Home with Persistent Generalized Weakness and Multiple syncopal events. Patient hypothermic, bradycardic upon arrival. Imaging is suggestive of volume overload with pleural effusion, ascites and anasarca. Patient does appear to be clinically dry on exam however labs and imaging mostly suggest volume overload. #Syncope - check orthostatic vitals Telemetry monitoring Check 2D echo #Contusion of headpatient is on Eliquis anticoagulation. Unwitnessed fall with left frontal head abrasion - neurochecks with GCS every 4 hours #Hypothermia with bradycardia. Check random cortisol Check TSH Continue external warming blanket Internal temperature monitoring Continue to monitor for infection #Paroxysmal atrial fibrillationpatient on anticoagulation with apixaban. He is on metoprolol 100 mg p.o. every morning. Continue apixaban Hold metoprolol for now due to borderline blood pressures and bradycardia with heart rate = 57 # hyperlipidemia Continue atorvastatin #Diabetes overall well-controlled. Last hemoglobin A1c on 06/21/2024 = 7.2. Blood sugar currently 113. Patient not on any medications Continue fingersticks to monitor #Constipation Dulcolax SD daily, docusate/senna every morning daily, MiraLAX as needed #pleural effusionpatient with evidence of volume overload on imaging Check 2D echo Given 40 mg of IV Lasix will monitor response Continue additional spot dosing of Lasix as tolerated History of Present Illness Chief Complaint: Fall, generalized weakness Primary Care Provider: Raffi Alva MD Maxwell Encinas Is an 89-year-old male with history of atrial fibrillation on Eliquis anticoagulation, diabetes, hyperlipidemia, hypertension and CKD presenting from home with progressive weakness and fall. Patient was recently admitted to [facility] from 07/14 - 07/24 after presenting with ambulatory dysfunction and falls. He was ultimately discharged home. His son has been in contact with him since he returned home and patient reports that he has had continued weakness. His son came to visit him yesterday - had a PCP appointment on 08/06/24. Son reports that his PCP was going to try to get patient placed in a rehab facility to improve strength and balance. This evening the patient was complaining of some constipation. He did not eat dinner. He went upstairs to use the bathroom - son reports hearing a "thud" and finding the patient on his bedroom floor with a left frontal forehead abrasion. Son states that patient was slightly confused when he first found him but then slowly returned to normal. He got up and passed out again. 911 was called. Patient reportedly passed out two additional times. Presently with no complaints In the ER patient hypothermic with temperature of 31.8. External warming blanket placed. Otherwise HD stable with adequate oxygenation on RA. ER Course: Cefepime Lasix 40mg IV Allergies Allergy/AdvReac Type Severity Reaction Status Date / Time Sulfa (Sulfonamide Allergy Intermediate HIVES Verified 07/25/24 12:10 Antibiotics) Home Medications Medication Instructions Recorded Confirmed Type mecobalamin (vitamin B12) 5,000 2,500 mcg (1/2 x 5,000 mcg) PO Q 03/29/23 07/31/24 Rx mcg disintegrating tablet OTHER DAY #1 tab lancets 33 gauge (RentersQTouch Delica #100 ea 08/18/23 07/31/24 Rx Plus Lancet) [id number] 250 mg-dha 90 1 cap PO DAILY 09/11/23 07/31/24 History mg-epa 160 [id number] capsule (Ocuvite Adult 50 Plus) polyethylene glycol 3350 17 17 g PO DAILY PRN constipation 12/20/23 07/31/24 Rx gram/dose oral powder (Miralax) #238 grams blood sugar diagnostic (OneTouch #100 ea 12/29/23 07/31/24 Rx Verio test strips) furosemide 40 mg tablet (Lasix) 40 mg PO DAILY PRN weight gain, 01/05/24 07/31/24 Rx SOB, edema #30 tabs atorvastatin 10 mg tablet 10 mg PO QAM #90 tabs 04/11/24 07/31/24 Rx metoprolol succinate 100 mg 100 mg PO QAM #90 tabs 04/11/24 07/31/24 Rx tablet,extended release 24 hr buspirone 5 mg tablet 5 mg PO HS #30 tabs 04/12/24 07/31/24 Rx levothyroxine 75 mcg tablet 75 mcg PO DAILY #90 tabs 06/14/24 07/31/24 Rx clonazepam 0.5 mg tablet 0.5 mg PO HS PRN Insomnia #20 tabs 07/02/24 07/31/24 Rx ramelteon 8 mg tablet 8 mg PO HS #30 tabs 07/02/24 07/31/24 Rx docusate sodium 100 mg capsule 200 mg (2 x 100 mg) PO DAILY #90 07/26/24 07/31/24 Rx (Colace) caps apixaban 2.5 mg tablet (Eliquis) 2.5 mg PO BID #180 tabs 08/07/24 Rx Past Med/Surg History Problem List Pleural effusion (Acute) Syncope (Acute) Bradycardia (Acute) Contusion of head (Acute) Elevated troponin (Acute) APPLE (acute kidney injury) (Acute) Hypothermia (Acute) Ambulatory dysfunction Fall Chronic constipation Atrial flutter hx of Cholelithiasis Tricuspid regurgitation Gait disturbance (Chronic) Hypothyroidism Paroxysmal A-fib CLL (chronic lymphocytic leukemia) Thrombocytopenia Vitamin D deficiency Vitamin B12 deficiency Hemorrhoids Health care maintenance Dyslipidemia (Chronic) Idiopathic polyneuropathy Type 2 diabetes mellitus (Chronic) Anemia (Chronic) Irritable bowel syndrome (Chronic) Lower back pain (Chronic) Osteoarthritis (Chronic) Insomnia (Chronic) H/O left mastectomy Hypertension Chronic kidney disease, stage III (moderate) follows with Dr. Abrams Medical History Joint pain in fingers of left hand Hyperkalemia Hip hematoma, left Normocytic anemia Hyponatremia Sleep disturbances CKD (chronic kidney disease) Right heart failure Cellulitis, leg Hematoma of left lower leg Fall at home Anasarca Hyperbilirubinemia Localized swelling of both lower legs Elevated LFTs Non-ST elevation PA (NSTEMI) History of cardioversion 07/18/23, [facility] Anticoagulant long-term use eliquis History of anesthesia reaction reports constipation, sleep disturbances and vission changes x 1 year following removal of loose body LLE 2000 History of gout Pancreatic cyst Constipation IBS (irritable bowel syndrome) DM type 2 (diabetes mellitus, type 2) diet controlled, no meds HLD (hyperlipidemia) Leukemia, chronic lymphoid, in remission pt denies per heme records- "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 Monae--on BB and ousmane Benign essential hypertension Surgical History History of lymph node excision 01/2023 off right chest History of surgery removal loose body x 2 LLE History of cataract surgery History of left hip replacement History of right hip replacement History of right mastectomy History of colonoscopy Family History Other No family history of adverse response to anesthesia Denies family history of Ovarian cancer Prostate cancer Breast cancer Lung cancer Colorectal cancer Social History Smoking Status: Never smoker Second Hand Exposure: No; Do You Dip or Chew Tobacco: No; Hx Alcohol Use: No Hx Substance Use: No Preferred Language: Mosotho Communication Ability: Effective Visual Impairment: No Limitations Hearing Ability: Normal Salvager Helper Required: No Beliefs That Will Affect Care: None marital status: / Current Living Situation: Alone 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 How many Children do You have Comment: one son Feels Safe at Home: Yes Safety Concerns: Feels Safe At This Time Diet: diabetic caffeine: No Physical Activity Frequency: Does not Exercise Seatbelt Use: always Sunscreen Use: No Do you think of yourself as: straight/heterosexual Gender Identity: Male Assistive Devices: Cane and Walker Review of Systems Review of Systems: All systems reviewed & are unremarkable except as noted in HPI & below Physical Exam Physical Exam: General: Frail Elderly Man, Resting Comfortably, No Acute Distress, Hard of Hearing Skin: Significant Bruising Noted Mostly on the Left Side of the Body, Arm, Forearm, Hip and Leg, Hematoma of Left Hip Nontender HEENT: NC/AT, PERRL, EOMI, anicteric sclera, conjunctiva without injection, external ear normal to inspection and nontender, nares patent, Dry mucus membranes, dentition intact, no oropharyngeal lesions, neck supple, trachea midline, no LAD, no thyromegaly, no JVD Heart: +S1/S2, Irregularly Irregular, no m/r/g Lungs: equal air entry bilaterally, no rales/rhonchi/wheezes Abd: +BS, soft, NT/ND, no masses/organomegaly/ascites Ext: warm, 2+ pulses in UE/LE bilaterally, no clubbing/cyanosis, Pitting Edema in Bilateral Lower Extremities to the Thighs Neuro: Patient Is Somnolent, Arousable, Oriented to Self, Hard of Hearing Results & Data Results & Data Vital Signs (Past 12 Hours) Vital Signs Temp Pulse Pulse Resp BP BP Pulse Ox 08/08/24 00:46 33.1 C L 53 L 14 102/67 94 08/08/24 00:30 33.0 C L 53 L 20 101/71 99 08/08/24 00:15 53 L 20 115/70 99 08/08/24 00:14 32.1 C L 53 L 20 115/70 99 08/08/24 00:00 31.8 C L 53 L 20 99/70 L 99 08/07/24 23:45 53 L 20 124/81 97 08/07/24 23:45 53 L 20 124/78 99 08/07/24 23:45 53 L 20 99 08/07/24 23:45 08/07/24 23:27 53 L 08/07/24 23:18 33 C L 53 L 20 105/70 99 08/07/24 23:18 33.0 C L 53 L 20 105/70 99 08/07/24 23:15 52 L 20 105/70 97 O2 Del Method O2 Flow Rate 08/08/24 00:46 Room Air 08/08/24 00:30 Room Air 08/08/24 00:15 Room Air 08/08/24 00:14 Room Air 08/08/24 00:00 Room Air 08/07/24 23:45 Room Air 08/07/24 23:45 Room Air 08/07/24 23:45 Room Air 08/07/24 23:45 Room Air 08/07/24 23:27 08/07/24 23:18 Room Air 08/07/24 23:18 Room Air 0 08/07/24 23:15 Room Air Laboratory Results Laboratory Results WBC 6.23 K/ul (4.8-10.8) 08/07/24 23:14 RBC 3.15 M/uL (4.70-6.10) L 08/07/24 23:14 Hgb 10.9 g/dl (14.0-18.0) L 08/07/24 23:14 POC Hgb 12.2 g/dl (14.0-18.0) L 08/07/24 23:28 Hct 32.5 % (42.0-52.0) L 08/07/24 23:14 POC Hct 36 % (42-52) L 08/07/24 23:28 MCV 103.2 fL (80.0-100.0) H 08/07/24 23:14 MCH 34.6 pg (25.0-34.0) H 08/07/24 23:14 MCHC 33.5 g/dL (32.0-36.0) 08/07/24 23:14 RDW Std Deviation 76.8 fL (36.4-46.3) H 08/07/24 23:14 RDW Coeff of Gilbert 20.3 % (11.5-14.5) H 08/07/24 23:14 Plt Count 61 K/uL (130-400) L 08/07/24 23:14 MPV 12.5 fL (9.4-12.4) H 08/07/24 23:14 Immature Gran % (Auto) 1.4 % 08/07/24 23:14 Neut % (Auto) 79.0 % 08/07/24 23:14 Lymph % (Auto) 11.1 % 08/07/24 23:14 [place] % (Auto) 7.9 % 08/07/24 23:14 Eos % (Auto) 0.3 % 08/07/24 23:14 Baso % (Auto) 0.3 % 08/07/24 23:14 Neut # (Auto) 4.92 K/uL (1.40-6.50) 08/07/24 23:14 Lymph # (Auto) 0.69 K/uL (1.20-3.40) L 08/07/24 23:14 [place] # (Auto) 0.49 K/uL (0.11-0.59) 08/07/24 23:14 Eos # (Auto) 0.02 K/uL (0.00-0.50) 08/07/24 23:14 Baso # (Auto) 0.02 K/uL (0.00-0.20) 08/07/24 23:14 Immature Gran # (Auto) 0.09 K/uL (0.01-0.20) 08/07/24 23:14 Absolute Nucleated RBC 0.05 K/uL (0.00-0.12) 08/07/24 23:14 Nucleated RBC % (auto) 0.8 % 08/07/24 23:14 Toxic Vacuolation 1+ 08/07/24 23:14 Polychromasia 1+ 08/07/24 23:14 Basophilic Stippling 1+ 08/07/24 23:14 Anisocytosis Present 08/07/24 23:14 Echinocytes 1+ 08/07/24 23:14 Acanthocytes (Spur) 1+ 08/07/24 23:14 PT 15.8 Seconds (9.0-12.0) H 08/07/24 23:14 INR 1.5 (0.9-1.1) H 08/07/24 23:14 POC Sodium 126 mmol/L (135-144) L 08/07/24 23:28 Sodium 126 mmol/L (136-145) L 08/07/24 23:14 POC Potassium 5.7 mmol/L (3.3-5.0) H 08/07/24 23:28 Potassium 5.7 mmol/L (3.5-5.1) H 08/07/24 23:14 POC Chloride 99 mmol/L (101-112) L 08/07/24 23:28 Chloride 97 mmol/L (98-107) L 08/07/24 23:14 Carbon Dioxide 18 mmol/L (21-32) L 08/07/24 23:14 POC Total CO2 18 mmol/L (24-31) L 08/07/24 23:28 Anion Gap 11 (3-11) 08/07/24 23:14 POC Anion Gap 15.0 mmol/L (16-25) L 08/07/24 23:28 POC BUN 56 mg/dl (7-18) H 08/07/24 23:28 BUN 65 mg/dl (6-23) H 08/07/24 23:14 Creatinine 2.32 mg/dl (0.6-1.4) H 08/07/24 23:14 POC Creatinine 2.7 mg/dl (0.6-1.3) H 08/07/24 23:28 Est Cr Clr Drug Dosing Not Reportable 08/07/24 23:14 eGFR 26.21 08/07/24 23:14 BUN/Creatinine Ratio 28.0 (10-20) H 08/07/24 23:14 Glucose 113 mg/dl (70-99(Fasting)) H 08/07/24 23:14 POC Glucose (other) 105 mg/dl (70-99) H 08/07/24 23:28 Lactate 2.4 mmol/L (0.4-2.0) H* 08/08/24 01:24 Calcium 8.7 mg/dl (8.6-10.3) 08/07/24 23:14 POC Ioniz Calcium Juliano 1.07 mmol/l (1.12-1.32) L 08/07/24 23:28 Magnesium 2.5 mg/dl (1.7-2.4) H 08/07/24 23:14 Total Bilirubin 3.6 mg/dl (0.2-1.0) H 08/07/24 23:14 Direct Bilirubin 1.0 mg/dl (0-0.2) H 08/07/24 23:14 AST 38 U/L (13-39) 08/07/24 23:14 ALT 21 U/L (7-52) 08/07/24 23:14 Alkaline Phosphatase 81 U/L (34-104) 08/07/24 23:14 Troponin I High Sens 85.3 pg/ml (0-20) H* 08/08/24 01:24 B-Natriuretic Peptide 669 pg/ml (0-100) H 08/07/24 23:13 Total Protein 6.5 gm/dl (6.0-8.3) 08/07/24 23:14 Albumin 4.1 gm/dl (3.4-5.0) 08/07/24 23:14 Procalcitonin 0.06 ng/ml (0-0.5) 08/07/24 23:14 Urine Color Yellow 08/08/24 00:15 Urine Appearance Clear (Clear) 08/08/24 00:15 Urine pH 5.0 (4.5-7.5) 08/08/24 00:15 Ur Specific [place] 1.016 (1.000-1.030) 08/08/24 00:15 Urine Protein 2+ (Negative) H 08/08/24 00:15 Urine Glucose (UA) Negative (Negative) 08/08/24 00:15 Urine Ketones Trace (Negative) H 08/08/24 00:15 Urine Blood Negative (Negative) 08/08/24 00:15 Urine Nitrite Negative (Negative) 08/08/24 00:15 Urine Bilirubin Negative (Negative) 08/08/24 00:15 Urine Urobilinogen Negative (Negative) 08/08/24 00:15 Ur Leukocyte Esterase Negative (Negative) 08/08/24 00:15 Urine WBC (Auto) 6-10 /hpf (0-5) H 08/08/24 00:15 Urine RBC (Auto) 0-2 /hpf (0-2) 08/08/24 00:15 U Hyaline Cast (Auto) 6-10 /lpf (0-2) H 08/08/24 00:15 U Epithel Cells (Auto) 0-2 /hpf (0-2) 08/08/24 00:15 Urine Bacteria (Auto) None Seen (None Seen) 08/08/24 00:15 Hyaline Casts Present /lpf (None Presnt) A 08/08/24 00:[address] 08/07/24 23:13 Exam(s): CT C SPINE EXAM: CT Cervical Spine Without Intravenous Contrast CLINICAL HISTORY: fall. TECHNIQUE: Axial computed tomography images of the cervical spine without intravenous contrast. CTDI is 25.83 mGy and DLP is 526.61 mGy-cm. Automated exposure control was utilized for the study. A dose lowering technique was utilized adhering to the principles of ALARA. COMPARISON: No relevant prior studies available. FINDINGS: Vertebrae: The cervical vertebral bodies are intact without acute traumatic injury. 2 mm anterolisthesis involving C3 on C4. 1-2 mm retrolisthesis involving C4 on C5. There is straightening of the normal cervical lordosis, presumably related to positioning or muscle spasm. The pedicles, facet joints, spinous processes and transverse processes are intact. Diffuse facet hypertrophic arthropathy noted bilaterally. Discs/spinal canal/neural foramina: Diffuse disc space narrowing with marginal hypertrophic osteophyte changes. This results in chronic appearing moderate osseous canal narrowing at the 4 5 and C5-6. Soft tissues: Unremarkable. IMPRESSION: No acute osseous traumatic injury or significant abnormal alignment involving the cervical spine. Chronic appearing prominent diffuse degenerative changes noted. Electronically signed by: Claudio Brown MD 08/08/24 00:[address] 08/07/24 23:13 Exam(s): CT HEAD Without Contrast EXAM: CT Head Without Intravenous Contrast CLINICAL HISTORY: fall. TECHNIQUE: Axial computed tomography images of the head/brain without intravenous contrast. CTDI is 37.69 mGy and DLP is 702.46 mGy-cm. Automated exposure control was utilized for the study. A dose lowering technique was utilized adhering to the principles of ALARA. COMPARISON: No relevant prior studies available. FINDINGS: Brain: There are a few areas of decreased attenuation in the deep cerebral white matter consistent with mild small vessel ischemic/degenerative changes. The cerebral and cerebellar sulci are mildly prominent consistent with mild brain atrophy. No intracranial hemorrhage. No significant mass-effect. No cortical infarct. Ventricles: Unremarkable. No ventriculomegaly. Bones/joints: Unremarkable. No acute fracture. Soft tissues: No significant overlying acute traumatic soft tissue abnormality. No radiopaque foreign body. Sinuses: Unremarkable as visualized. No acute sinusitis. Mastoid air cells: Unremarkable as visualized. No mastoid effusion. IMPRESSION: No acute intracranial process identified. Incidental chronic appearing presumed age-related findings. Electronically signed by: Claudio Brown MD 08/08/24 00:12 AM Pelvis X-Ray 08/07/24 23:13 Exam(s): XR PELVIS, 1-2 views EXAM: XR Pelvis, 1 or 2 Views CLINICAL HISTORY: trauma. TECHNIQUE: Frontal view of the pelvis. COMPARISON: CT abdomen and pelvis dated 07/14/2024 FINDINGS: Bones/joints: Remote traumatic changes involving the left. Inferior pubic rami, stable. The pelvic bones appear intact. Bilateral hip arthroplasties. The femoral head component superior well aligned within the acetabular components. No acute fracture. Soft tissues: Unremarkable. IMPRESSION: No acute osseous traumatic injury involving the pelvis. Electronically signed by: Claudio Brown MD 08/07/24 23:55 PM Chest X-Ray 08/07/24 23:14 Exam(s): XR CXR 1 VIEW EXAM: XR Chest, 1 View CLINICAL HISTORY: Sepsis. TECHNIQUE: Frontal view of the chest. COMPARISON: Portable chest single view 07/14/2024 FINDINGS: Lungs: There is a new asymmetric veiling opacity overlying the left lung with a suggestion of a developing pleural effusion and superior laterally at the apex. The right lung is well aerated. Pleural space: As above. No left pleural effusion. No pneumothorax. Heart: The cardiac silhouette is stable in size. Mediastinum: The mediastinal contours are stable and unremarkable. The trachea is midline. Incidental similar calcification of the aortic arch. Bones/joints: Unremarkable. No acute fracture. IMPRESSION: There is a new asymmetric veiling opacity overlying the left lung with a suggestion of a developing pleural effusion and superior laterally at the apex. The veiling opacity may represent atelectasis or layering effusion. The right lung is well aerated. Electronically signed by: Claudio Brown MD 08/07/24 23:53 PM Abdomen/Pelvis CT 08/07/24 23:16 Exam(s): CT ABDOMEN + PELVIS Without Contrast EXAM: CT Abdomen and Pelvis Without Intravenous Contrast CLINICAL HISTORY: trauma. TECHNIQUE: Axial computed tomography images of the abdomen and pelvis without intravenous contrast. CTDI is 37.69 mGy and DLP is 3235.72 mGy-cm. Automated exposure control was utilized for the study. A dose lowering technique was utilized adhering to the principles of ALARA. COMPARISON: CT abdomen and pelvis without contrast dated 5 FINDINGS: Artifacts: Scatter artifact likely related to patient's arm position. Limitations: Evaluation is limited by diffuse respiratory artifact and lack of IV contrast. Lung bases: For findings regarding the lung bases, please see the CT report of the chest performed concurrently. ABDOMEN: Liver: The unenhanced liver is grossly unremarkable without evidence for traumatic injury. Gallbladder and bile ducts: Layering hyperdense granular gallstones or sludge noted in the gallbladder. Evaluation of the gallbladder wall is limited with perihepatic fluid. No biliary dilatation. Pancreas: The unenhanced pancreas is grossly stable. No definite peripancreatic inflammatory changes. No ductal dilation. Spleen: The spleen is grossly unremarkable, accounting for perisplenic fluid. Adrenals: Unremarkable. No mass. Kidneys and ureters: The kidneys are slightly atrophic in appearance. Similar perinephric fat stranding. No evidence for traumatic injury. No obstructing stones. No hydronephrosis. Stomach and bowel: No evidence for bowel obstruction. Evaluation for traumatic bowel injury is somewhat limited. No obvious mesenteric contusive injury. PELVIS: Appendix: No findings to suggest acute appendicitis. Bladder: Unremarkable. No stones. Reproductive: Unremarkable as visualized. ABDOMEN and PELVIS: Intraperitoneal space: Mild free fluid noted throughout the abdomen and pelvis, slightly increased in volume from the previous examination. The fluid is hypodense without evidence for a layering hematocrit. No free air. Retroperitoneal space: No evidence for retroperitoneal hematoma. Bones/joints: Diffuse degenerative changes throughout the thoracolumbar spine, stable. No acute osseous abnormality. Remote traumatic healed fractures involving the left superior and inferior pubic rami. No acute pelvic bone fracture. Bilateral total hip arthroplasty is noted. Imaging through the inferior margin of the components was not performed. However, no periprosthetic lucency, were included. Soft tissues: Diffuse soft tissue edema suggesting anasarca. Vasculature: Atherosclerotic calcification of the aorta, stable. No acute periaortic abnormality. No abdominal aortic aneurysm. Lymph nodes: Unremarkable. No enlarged lymph nodes. IMPRESSION: 1. Limited by diffuse respiratory artifact and lack of IV contrast. 2. No obvious intraperitoneal or retroperitoneal solid organ injury, accounting for limitations. 3. mild free fluid noted throughout the abdomen and pelvis, slightly increased in volume from the previous examination. The fluid is hypodense without evidence for a layering hematocrit. Suspect incidental ascites. 2. Diffuse soft tissue edema suggesting anasarca, more prominent than on the previous examination. Electronically signed by: Claudio Brown MD 08/08/24 00:[address] 08/07/24 23:16 Exam(s): CT CHEST Without Contrast EXAM: CT Chest Without Intravenous Contrast CLINICAL HISTORY: trauma. TECHNIQUE: Axial computed tomography images of the chest without intravenous contrast. CTDI is 37.69 mGy and DLP is 3235.72 mGy-cm. Automated exposure control was utilized for the study. A dose lowering technique was utilized adhering to the principles of ALARA. COMPARISON: No relevant prior studies available. FINDINGS: Lungs: Unremarkable. No mass. No consolidation. Pleural space: There is a moderate layering right pleural effusion extending along the length of the right hemithorax. The pleural effusion is hypodense without layering hematocrit. No pulmonary contusive injury noted with minimal subsegmental changes lung bases and involving the posterior right lung adjacent pleural effusion. No pneumothorax. Heart: The cardiac chambers are globally enlarged. Incidental minimal gas noted in the right ventricle, presumably from intravenous injection. Trace pericardial effusion in the superior pericardial recess. No significant coronary artery calcifications. Bones/joints: Minimally displaced fracture through the lateral left eighth rib. The thoracic vertebral bodies are intact without acute traumatic injury. Incidental chronic anterior wedging at T5-T8 levels with slightly accentuated kyphosis. No right-sided acute rib fracture. No dislocation. Soft tissues: Unremarkable. Vasculature: The ascending aorta is ectatic, with the mid ascending aorta measuring 3.8 x 3.6 cm. The aortic arch and descending aorta are normal in caliber. Moderate atherosclerotic calcification. No thoracic aortic aneurysm. Lymph nodes: Unremarkable. No enlarged lymph nodes. IMPRESSION: 1. Minimally displaced fracture through the lateral left eighth rib. No other acute osseous abnormality noted. 2. There is a moderate layering right pleural effusion extending along the length of the right hemithorax. The pleural effusion is hypodense without layering hematocrit. 3. No other evidence for significant acute traumatic injury to the unenhanced chest/thorax. Electronically signed by: Claudio Brown MD 08/08/24 00:[address] 08/08/24 01:21 EXAM: CT femur LT wo con CLINICAL HISTORY: l leg pain per IM TECHNIQUE: Contiguous axial CT images of left were obtained without intravenous contrast. Coronal and sagittal reconstructions were likewise performed and indicated to increase the sensitivity for detecting clinically relevant pathology. CT scan was performed according to ALARA (as low as reasonably achievable). COMPARISON: none FINDINGS: Left total hip replacement status. A soft tissue lesion measuring 6.6x5cm, seen in subcutaneous plane in lateral aspect of left hip. Diffuse subcutaneous edema in whole of left thigh. No acute fracture or dislocation. No destructive osseous lesion. Osteoarthritic changes seen in left knee joint. The visualized muscles and tendons appear grossly unremarkable. No cortical destruction to suggest osteomyelitis. No abscess formation. No significant joint effusion. IMPRESSION: 1. Left total hip replacement status. 2. A soft tissue lesion in subcutaneous plane in lateral aspect of left hip.Possible hematoma. Suggested clinical and ultrasound correlation. 3. Diffuse subcutaneous edema in whole of left thigh. Electronically signed by Tigre Vera 08-08-2024 03:12 AM PG Care Time/CCT Total # of Minutes Spent Total Time Spent with Patient: Total time spent is greater than 50% in coordination of care (as documented) at patient's floor/unit and/or counseling patient: Coding Level of Care Code 77480 INT INP/OBS CARE MIN Diagnoses Syncope R55 Syncope type: unspecified Contusion of head S00.93XA Contusion of head detail: unspecified part of head Encounter type: initial encounter Hypothermia T68.XXXA Encounter type: initial encounter Paroxysmal A-fib I48.0 Dyslipidemia E78.5 Type 2 diabetes mellitus E11.9 Primary hypertension I10 Hypertension type: primary hypertension Chronic kidney disease, stage III (moderate) N18.30 Pleural effusion J90 (1) Syncope Syncope type: unspecified Qualified Code(s): R55 - Syncope and collapse (2) Contusion of head Contusion of head detail: unspecified part of head Encounter type: initial encounter Qualified Code(s): S00.93XA - Contusion of unspecified part of head, initial encounter (3) Hypothermia Encounter type: initial encounter Qualified Code(s): T68.XXXA - Hypothermia, initial encounter (7) Hypertension Hypertension type: primary hypertension Qualified Code(s): I10 - Essential (primary) hypertension
[2024-08-08 01:16] LABS: Appearance Urine Clear (Clear); Bacteria Urine Automated None Seen (None Seen); Bilirubin Urine Negative (Negative); Blood Urine Negative (Negative); Color Urine Yellow; Epithelial Cell Urine Auto 0-2 /hpf (0-2); Glucose Urine UA Negative (Negative); Hyaline Casts Urine Present /lpf (None Presnt); Ketones Urine Trace (Negative); Leukocyte Esterase Urine Negative (Negative); Nitrite Urine Negative (Negative); Protein Urine 2+ (Negative); RBC Urine Automated 0-2 /hpf (0-2); Specific Gravity Urine 1.016 (1.000-1.030); Urobilinogen Urine Negative (Negative)
[2024-08-08] MEDS: CEFEPIME 2000MG 2,000 MG/20 ML SYR IV STA (02:08)
[2024-08-08] MEDS: FUROSEMIDE 40 MG/4 ML VIAL IV ONE (02:08)
[2024-08-08] MEDS ORDERED: GLUCOSE 40% GEL 15 GM TUBE PO PRN (02:50)
[2024-08-08] MEDS ORDERED: GLUCAGON FOR INJ 1 MG VIAL SQ PRN (02:50)
[2024-08-08] MEDS ORDERED: CARBOHYDRATES FOR HYPOGLYCEMIA PO PRN (02:50)
[2024-08-08] MEDS ORDERED: ACETAMINOPHEN 325 MG TAB PO PRN (02:50)
[2024-08-08] MEDS ORDERED: ONDANSETRON INJ 2 MG/ML 2 ML VIAL IV PRN (02:50)
[2024-08-08] MEDS ORDERED: GLUCOSE 10 TAB/TUBE PO PRN (02:50)
[2024-08-08] MEDS ORDERED: DEXTROSE 50% 50 ML SYRINGE IV PRN (02:50)
[2024-08-08] MEDS: LIDOCAINE 5% 1 PATCH TD STA (03:11)
--- NOTE | 2024-08-08 03:12 | CT Scan Report ---
EXAM: CT femur LT wo con CLINICAL HISTORY: l leg pain per IM TECHNIQUE: Contiguous axial CT images of left were obtained without intravenous contrast. Coronal and sagittal reconstructions were likewise performed and indicated to increase the sensitivity for detecting clinically relevant pathology. CT scan was performed according to ALARA (as low as reasonably achievable). COMPARISON: none FINDINGS: Left total hip replacement status. A soft tissue lesion measuring 6.6x5cm, seen in subcutaneous plane in lateral aspect of left hip. Diffuse subcutaneous edema in whole of left thigh. No acute fracture or dislocation. No destructive osseous lesion. Osteoarthritic changes seen in left knee joint. The visualized muscles and tendons appear grossly unremarkable. No cortical destruction to suggest osteomyelitis. No abscess formation. No significant joint effusion. IMPRESSION: 1. Left total hip replacement status. 2. A soft tissue lesion in subcutaneous plane in lateral aspect of left hip.Possible hematoma. Suggested clinical and ultrasound correlation. 3. Diffuse subcutaneous edema in whole of left thigh. Electronically signed by Tigre Vera 08-08-2024 03:12 AM
[2024-08-08 03:31] LABS: iSTAT Creatinine 2.7 mg/dl (0.6-1.3); iSTAT Hemoglobin 12.2 g/dl (14.0-18.0); iSTAT Ionized Calcium 1.07 mmol/l (1.12-1.32); iSTAT Potassium 5.7 mmol/L (3.3-5.0)
[2024-08-08] MEDS ORDERED: clonazePAM 0.5 MG TAB PO PRN (04:51)
[2024-08-08 05:04] LABS: Thyroid Stimulating Hormone 4.084 uIu/ml (0.300-4.500)
[2024-08-08 05:17] LABS: Troponin I High Sensitivity 85.7 pg/ml (0-20)
[2024-08-08] MEDS: CALCIUM GLUCONATE 1,000 MG/60 ML BAG IV SCH (05:30)
[2024-08-08] MEDS: INSULIN HUMAN REGULAR PER UNIT 10 UNITS in SYRINGE 9.9 ML IV STA (06:07)
[2024-08-08] MEDS: DEXTROSE 50% 50 ML SYRINGE IV STA (06:07)
[2024-08-08] MEDS: DOCUSATE SODIUM/SENNA 50/8.6MG TAB PO SCH (09:21)
[2024-08-08] MEDS: APIXABAN 2.5 MG TAB PO SCH (09:21)
[2024-08-08] MEDS: ATORVASTATIN 10 MG TAB PO SCH (09:21)
[2024-08-08] MEDS: bisacodyL 10 MG SUPP PR SCH (09:21)
[2024-08-08 09:56] LABS: Troponin I High Sensitivity 104.4 pg/ml (0-20)
[2024-08-08 09:57] LABS: T4 Free Thyroxine 1.14 ng/dl (0.61-1.60)
--- NOTE | 2024-08-08 11:44 | XCELERA ---
[id number] \\[id number]}___[id number]
[2024-08-08] MEDS: LIOTHYRONINE SODIUM 5 MCG TAB PO SCH (13:12)
--- NOTE | 2024-08-08 13:16 | Hospitalist Progress Note ---
Date of Service August 08, 2024 Assessment & Plan (1) Syncope: Plan: Recurrent episodes of syncope probably related to junctional bradycardia and possibly third-degree AV block. Metoprolol has been discontinued. Telemetry. Await cardiology evaluation (2) Contusion of head: Plan: Mid forehead area. This occurred when he had a syncopal episode and fell. Local care (3) Hypothermia: Plan: Warming blanket until temperature normalizes. Probably related to low thyroid levels. Supportive care (4) Paroxysmal A-fib: Plan: Past history of atrial fibrillation. Currently his EKG reveals what appears to be a junctional bradycardia. He may have had episodes of third-degree AV block also. Metoprolol has been discontinued. Thyroid replacement underway. Telemetry. Cardiology consultation pending. Eliquis has been placed on hold (5) Type 2 diabetes mellitus: Plan: ADA diet. Sliding scale coverage as needed (6) Hypertension: Plan: Metoprolol has been discontinued. (7) Chronic kidney disease, stage III (moderate): Plan: Currently stable. Monitor intake and output. Serial labs (8) Primary hypothyroidism: Plan: Free T3 levels are low. Cytomel replacement therapy has been started (9) CLL (chronic lymphocytic leukemia): Plan: Stable. No indication for emergent treatment at this time (10) Hyponatremia: Plan: Sodium 126 on admission. Serum osmolarity is normal. Will follow (11) Hyperkalemia: Plan: Potassium 5.7 on admission. Avoid JOHANNA inhibitors, ARB, spironolactone, potassium supplementation. Serial labs Plan To be determined Admission and Anticipated Discharge Date Admission Date: August 08, 2024 Subjective Awake and alert. Admission EKG reviewed reveals what looks like junctional bradycardia. Metoprolol has been discontinued. Free T3 level is low and Cytomel has been started. Free T4 level is normal. Cardiology consultation requested and pending. Recent cardiac echo completed July 16 reveals mild LVH with normal ejection fraction, moderately severe tricuspid regurgitation, and mild to moderate mitral regurgitation. Review of Systems 2 Review of Systems: Constitutionalno fever or chills ENTno blurred vision, no double vision, no epistaxis, no sore throat Respiratoryno cough, no wheezing, no shortness of breath Cardiacno palpitations, no chest pain, no syncope Charity nausea, vomiting, diarrhea, melena, hematochezia GUno urinary retention, no urinary incontinence, no dysuria, no hematuria Musculoskeletalno joint pain, no muscle tenderness Skinno bruising, no rashes, no pruritus Neurono isolated weakness, no paresthesia. Recurrent syncopal episodes Psychno depression, no anxiety Physical Exam 2 Physical Exam: General-alert and oriented x3, no fever, no chills HEENT-head atraumatic and normocephalic, pupils equal and reactive to light, extraocular muscles intact Neck-no lymphadenopathy or thyromegaly, trachea midline Chest-clear to auscultation. No rales, wheezing or rhonchi Cardiac-bradycardic regular rate and rhythm, normal S1 and S2 Abdomen-normal bowel sounds, no hepatosplenomegaly Extremities-no cyanosis, clubbing, or edema Neuro-cranial nerves II through XII intact, motor and sensory function within normal limits, strength symmetrical with generalized weakness consistent with advanced age, no focal deficits Psych-normal affect, normal mood Results & Data Results & Data Vital Signs (Past 12 Hours) Vital Signs Temp Pulse Pulse Pulse Resp BP Pulse Ox 08/08/24 11:24 36.3 C L 57 L 18 102/65 98 08/08/24 07:50 36.3 C L 66 19 95/58 L 98 08/08/24 05:06 35.6 C L 60 18 102/61 99 08/08/24 03:38 57 L 08/08/24 03:00 36.5 C 08/08/24 03:00 36.5 C 57 L 16 111/68 99 08/08/24 02:45 33.9 C L 55 L 16 105/65 96 08/08/24 02:27 08/08/24 02:11 33.7 C L 54 L 16 106/68 97 O2 Del Method 08/08/24 11:24 Room Air 08/08/24 07:50 Room Air 08/08/24 05:06 Room Air 08/08/24 03:38 08/08/24 03:00 08/08/24 03:00 Room Air 08/08/24 02:45 Room Air 08/08/24 02:27 Room Air 08/08/24 02:11 Room Air Laboratory Results 08/07/24 23:14 08/07/24 23:14 PG Care Time/CCT Total # of Minutes Spent Total Time Spent with Patient: Total time spent is greater than 50% in coordination of care (as documented) at patient's floor/unit and/or counseling patient: Coding Level of Care Code 29670 SUB INP/OBS CARE 50MIN Diagnoses Syncope R55 Syncope type: unspecified Contusion of head S00.93XA Contusion of head detail: unspecified part of head Encounter type: initial encounter Hypothermia T68.XXXA Encounter type: initial encounter Paroxysmal A-fib I48.0 Type 2 diabetes mellitus E11.9 Primary hypertension I10 Hypertension type: primary hypertension Chronic kidney disease, stage III (moderate) N18.30 Primary hypothyroidism E03.9 CLL (chronic lymphocytic leukemia) C91.10 Hyponatremia E87.1 Hyperkalemia E87.5 (1) Syncope Syncope type: unspecified Qualified Code(s): R55 - Syncope and collapse (2) Contusion of head Contusion of head detail: unspecified part of head Encounter type: initial encounter Qualified Code(s): S00.93XA - Contusion of unspecified part of head, initial encounter (3) Hypothermia Encounter type: initial encounter Qualified Code(s): T68.XXXA - Hypothermia, initial encounter (6) Hypertension Hypertension type: primary hypertension Qualified Code(s): I10 - Essential (primary) hypertension
[2024-08-08] MEDS: POLYETHYLENE (MIRALAX) 17 GM PACK PO PRN (15:33)
--- NOTE | 2024-08-08 17:58 | Cardiology Consultation ---
Date of Consultation August 08, 2024 Assessment & Plan (1) Bradycardia: (2) Fall: (3) Paroxysmal A-fib: Plan 1. Fall: Long history of ambulatory dysfunction and frequent falls. Unwitnessed fall leading to his admission. Certainly possible this represents symptoms of conduction disease. However, he also has additional reasons for falling. No witnessed loss of consciousness. 2. Atrial fibrillation: Reported to be paroxysmal. In a junctional rhythm initially during his hospitalization now in a sinus rhythm. On apixaban as an outpatient. Currently being held. 3. Bradycardia: Initially associated with what appeared to be junctional rhythm. More recently he has a clear sinus mechanism but high degree AV block. Unfortunate, he has been on relatively high doses of metoprolol. Also an element of thyroid dysfunction. He had significant hyponatremia and appear to be acidotic. Also hypothermic at the time of presentation. Cortisol level was normal. I think we will need to monitor his conduction without beta-na and see if conduction improves with resolution of his metabolic derangements as well. 4. Elevated troponin: I think this is likely related to demand ischemia from his fall, relative bradycardia and hypothermia. I do not believe this repr esents an acute coronary syndrome. 5. Elevated BNP: Likely related to his right heart failure. 6. Right heart failure: He has an element of right heart failure manifest primarily by lower extremity edema. This is most likely related to severe tricuspid regurgitation. He appears to be a poor candidate for any intervention and will simply need to monitor his volume status and administer diuretics as tolerated. History of Present Illness Reason for Consultation: Bradycardia, heart block Requesting Physician: Chris Attending Physician: Omar Dow MD History of Present Illness The patient is an 89-year-old gentleman with a history of paroxysmal atrial fibrillation who was brought to the hospital after suffering a fall. The patient had recently been [facility] with significant ambulatory dysfunction and falls. Last evening he was at home when he had an unwitnessed fall resulting in a head injury. He was brought to the hospital for an evaluation. He was found to be relatively hypothermic and had bradycardia. During the course of telemetry monitoring there was some concerns about junctional rhythm and high degree AV block. Unfortunately, the patient provides little history. He seemed very somnolent during course of my interview. He was easily arousable however and did answer questions although the appropriateness of the answers are unclear. He did not recall falling last evening. He did not endorse symptoms of dizziness or lightheadedness. Has not been aware of any palpitations. He denied breathing difficulty. He seemed poorly aware of the circumstances which brought him to the hospital. He does report living alone and managing his medications on his own. Allergies Allergy/AdvReac Type Severity Reaction Status Date / Time Sulfa (Sulfonamide Allergy Intermediate HIVES Verified 07/25/24 12:10 Antibiotics) Home Medications Medication Instructions Recorded Confirmed Type mecobalamin (vitamin B12) 5,000 2,500 mcg (1/2 x 5,000 mcg) PO Q 03/29/23 07/31/24 Rx mcg disintegrating tablet OTHER DAY #1 tab lancets 33 gauge (OneTouch Delica #100 ea 08/18/23 07/31/24 Rx Plus Lancet) [id number] 250 mg-dha 90 1 cap PO DAILY 09/11/23 07/31/24 History mg-epa 160 ok-crdl-[id number]-zeax capsule (Ocuvite Adult 50 Plus) polyethylene glycol 3350 17 17 g PO DAILY PRN constipation 12/20/23 07/31/24 Rx gram/dose oral powder (Miralax) #238 grams blood sugar diagnostic (OneTouch #100 ea 12/29/23 07/31/24 Rx Verio test strips) furosemide 40 mg tablet (Lasix) 40 mg PO DAILY PRN weight gain, 01/05/24 07/31/24 Rx SOB, edema #30 tabs atorvastatin 10 mg tablet 10 mg PO QAM #90 tabs 04/11/24 07/31/24 Rx metoprolol succinate 100 mg 100 mg PO QAM #90 tabs 04/11/24 07/31/24 Rx tablet,extended release 24 hr buspirone 5 mg tablet 5 mg PO HS #30 tabs 04/12/24 07/31/24 Rx levothyroxine 75 mcg tablet 75 mcg PO DAILY #90 tabs 06/14/24 07/31/24 Rx clonazepam 0.5 mg tablet 0.5 mg PO HS PRN Insomnia #20 tabs 07/02/24 07/31/24 Rx ramelteon 8 mg tablet 8 mg PO HS #30 tabs 07/02/24 07/31/24 Rx docusate sodium 100 mg capsule 200 mg (2 x 100 mg) PO DAILY #90 07/26/24 07/31/24 Rx (Colace) caps apixaban 2.5 mg tablet (Eliquis) 2.5 mg PO BID #180 tabs 08/07/24 Rx Patient History Medical History Joint pain in fingers of left hand Hyperkalemia Hip hematoma, left Normocytic anemia Hyponatremia Sleep disturbances CKD (chronic kidney disease) Right heart failure Cellulitis, leg Hematoma of left lower leg Fall at home Anasarca Hyperbilirubinemia Localized swelling of both lower legs Elevated LFTs Non-ST elevation UT (NSTEMI) History of cardioversion 07/18/23, [facility] Anticoagulant long-term use eliquis History of anesthesia reaction reports constipation, sleep disturbances and vission changes x 1 year following removal of loose body LLE 2000 History of gout Pancreatic cyst Constipation IBS (irritable bowel syndrome) DM type 2 (diabetes mellitus, type 2) diet controlled, no meds HLD (hyperlipidemia) Leukemia, chronic lymphoid, in remission pt denies per heme records- "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 Monae--on BB and eliquis Benign essential hypertension Surgical History History of lymph node excision 01/2023 off right chest History of surgery removal loose body x 2 LLE History of cataract surgery History of left hip replacement History of right hip replacement History of right mastectomy History of colonoscopy Family History Other No family history of adverse response to anesthesia Denies family history of Ovarian cancer Prostate cancer Breast cancer Lung cancer Colorectal cancer Social History Smoking Status: Never smoker Second Hand Exposure: No; Do You Dip or Chew Tobacco: No; Hx Alcohol Use: No Hx Substance Use: No Preferred Language: Hungarian Communication Ability: Effective Visual Impairment: No Limitations Hearing Ability: Normal Professor Criminal Justice Required: No Beliefs That Will Affect Care: None marital status: / Current Living Situation: Alone 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 Able to answer questions appropriately no insight into how he came to the hospital. HEENT: Pupils are equal and reactive to light and accommodation. Extraocular movements are intact. The sclerae are anicteric. Neuro: Cranial nerves intact Lungs: Clear to auscultation bilaterally. He has good air movement without use of accessory muscles. No rales wheezes or rhonchi. Cardiac: Heart demonstrates a regular rhythm with occasional ectopy. Normal S1 and S2. Holosystolic murmur. Pulses: The patient has palpable radial pulses bilaterally that are equal in intensity Extremities: There was no evidence of hypoperfusion. There is no cyanosis or clubbing. Mild lower extremity edema Skin: I did not appreciate any rashes on examination today. Results & Data Vital Signs (Past 12 Hours) Vital Signs Temp Pulse Pulse Resp BP Pulse Ox O2 Del Method 08/08/24 15:35 35 C L 63 18 97/63 L 97 Room Air 08/08/24 11:24 36.3 C L 57 L 18 102/65 98 Room Air 08/08/24 07:50 36.3 C L 66 19 95/58 L 98 Room Air Laboratory Results Abnormal Lab Results 08/07/24 08/07/24 08/07/24 23:13 23:14 23:25 WBC 6.23 RBC 3.15 L Hgb 10.9 L POC Hgb Hct 32.5 L POC Hct MCV 103.2 H MCH 34.6 H MCHC 33.5 RDW Std Deviation 76.8 H RDW Coeff of [place] 20.3 H Plt Count 61 L MPV 12.5 H Immature Gran % (Auto) 1.4 Neut % (Auto) 79.0 Lymph % (Auto) 11.1 [place] % (Auto) 7.9 Eos % (Auto) 0.3 Baso % (Auto) 0.3 Neut # (Auto) 4.92 Lymph # (Auto) 0.69 L [place] # (Auto) 0.49 Eos # (Auto) 0.02 Baso # (Auto) 0.02 Immature Gran # (Auto) 0.09 Absolute Nucleated RBC 0.05 Nucleated RBC % (auto) 0.8 Toxic Vacuolation 1+ Polychromasia 1+ Basophilic Stippling 1+ Anisocytosis Present Echinocytes 1+ Acanthocytes (Spur) 1+ PT 15.8 H INR 1.5 H POC Sodium Sodium 126 L POC Potassium Potassium 5.7 H POC Chloride Chloride 97 L Carbon Dioxide 18 L POC Total CO2 Anion Gap 11 POC Anion Gap POC BUN BUN 65 H Creatinine 2.32 H POC Creatinine Est Cr Clr Drug Dosing Not Reportable eGFR 26.21 BUN/Creatinine Ratio 28.0 H Glucose 113 H POC Glucose POC Glucose (other) Osmolality 286 Lactate 3.4 H* Calcium 8.7 POC Ioniz Calcium Juliano Magnesium 2.5 H Total Bilirubin 3.6 H Direct Bilirubin 1.0 H AST 38 ALT 21 Alkaline Phosphatase 81 Total Creatine Kinase Troponin I High Sens 86.4 H* B-Natriuretic Peptide 669 H Total Protein 6.5 Albumin 4.1 Procalcitonin 0.06 TSH Free T4 Free T3 1.87 L Random Cortisol Urine Color Urine Appearance Urine pH Ur Specific [place] Urine Protein Urine Glucose (UA) Urine Ketones Urine Blood Urine Nitrite Urine Bilirubin Urine Urobilinogen Ur Leukocyte Esterase Urine WBC (Auto) Urine RBC (Auto) U Hyaline Cast (Auto) U Epithel Cells (Auto) Urine Bacteria (Auto) Hyaline Casts 08/07/24 08/08/24 08/08/24 23:28 00:15 01:24 WBC RBC Hgb POC Hgb 12.2 L Hct POC Hct 36 L MCV MCH MCHC RDW Std Deviation RDW Coeff of [place] Plt Count MPV Immature Gran % (Auto) Neut % (Auto) Lymph % (Auto) [place] % (Auto) Eos % (Auto) Baso % (Auto) Neut # (Auto) Lymph # (Auto) [place] # (Auto) Eos # (Auto) Baso # (Auto) Immature Gran # (Auto) Absolute Nucleated RBC Nucleated RBC % (auto) Toxic Vacuolation Polychromasia Basophilic Stippling Anisocytosis Echinocytes Acanthocytes (Spur) PT INR POC Sodium 126 L Sodium POC Potassium 5.7 H Potassium POC Chloride 99 L Chloride Carbon Dioxide POC Total CO2 18 L Anion Gap POC Anion Gap 15.0 L POC BUN 56 H BUN Creatinine POC Creatinine 2.7 H Est Cr Clr Drug Dosing eGFR BUN/Creatinine Ratio Glucose POC Glucose POC Glucose (other) 105 H Osmolality Lactate 2.4 H* Calcium POC Ioniz Calcium Juliano 1.07 L Magnesium Total Bilirubin Direct Bilirubin AST ALT Alkaline Phosphatase Total Creatine Kinase Troponin I High Sens 85.3 H* B-Natriuretic Peptide Total Protein Albumin Procalcitonin TSH Free T4 Free T3 Random Cortisol Urine Color Yellow Urine Appearance Clear Urine pH 5.0 Ur Specific [place] 1.016 Urine Protein 2+ H Urine Glucose (UA) Negative Urine Ketones Trace H Urine Blood Negative Urine Nitrite Negative Urine Bilirubin Negative Urine Urobilinogen Negative Ur Leukocyte Esterase Negative Urine WBC (Auto) 6-10 H Urine RBC (Auto) 0-2 U Hyaline Cast (Auto) 6-10 H U Epithel Cells (Auto) 0-2 Urine Bacteria (Auto) None Seen Hyaline Casts Present A 08/08/24 08/08/24 08/08/24 04:00 07:46 08:59 WBC RBC Hgb POC Hgb Hct POC Hct MCV MCH MCHC RDW Std Deviation RDW Coeff of [place] Plt Count MPV Immature Gran % (Auto) Neut % (Auto) Lymph % (Auto) [place] % (Auto) Eos % (Auto) Baso % (Auto) Neut # (Auto) Lymph # (Auto) [place] # (Auto) Eos # (Auto) Baso # (Auto) Immature Gran # (Auto) Absolute Nucleated RBC Nucleated RBC % (auto) Toxic Vacuolation Polychromasia Basophilic Stippling Anisocytosis Echinocytes Acanthocytes (Spur) PT INR POC Sodium Sodium POC Potassium Potassium POC Chloride Chloride Carbon Dioxide POC Total CO2 Anion Gap POC Anion Gap POC BUN BUN Creatinine POC Creatinine Est Cr Clr Drug Dosing eGFR BUN/Creatinine Ratio Glucose POC Glucose 93 POC Glucose (other) Osmolality Lactate Calcium POC Ioniz Calcium Juliano Magnesium Total Bilirubin Direct Bilirubin AST ALT Alkaline Phosphatase Total Creatine Kinase 79 Troponin I High Sens 85.7 H* 104.4 H* D B-Natriuretic Peptide Total Protein Albumin Procalcitonin TSH 4.084 Free T4 1.14 Free T3 Random Cortisol 23.35 Urine Color Urine Appearance Urine pH Ur Specific [place] Urine Protein Urine Glucose (UA) Urine Ketones Urine Blood Urine Nitrite Urine Bilirubin Urine Urobilinogen Ur Leukocyte Esterase Urine WBC (Auto) Urine RBC (Auto) U Hyaline Cast (Auto) U Epithel Cells (Auto) Urine Bacteria (Auto) Hyaline Casts 08/08/24 08/08/24 08/08/24 11:23 14:33 16:16 WBC RBC Hgb POC Hgb Hct POC Hct MCV MCH MCHC RDW Std Deviation RDW Coeff of [place] Plt Count MPV Immature Gran % (Auto) Neut % (Auto) Lymph % (Auto) [place] % (Auto) Eos % (Auto) Baso % (Auto) Neut # (Auto) Lymph # (Auto) [place] # (Auto) Eos # (Auto) Baso # (Auto) Immature Gran # (Auto) Absolute Nucleated RBC Nucleated RBC % (auto) Toxic Vacuolation Polychromasia Basophilic Stippling Anisocytosis Echinocytes Acanthocytes (Spur) PT INR POC Sodium Sodium POC Potassium Potassium POC Chloride Chloride Carbon Dioxide POC Total CO2 Anion Gap POC Anion Gap POC BUN BUN Creatinine POC Creatinine Est Cr Clr Drug Dosing eGFR BUN/Creatinine Ratio Glucose POC Glucose 138 H 130 H POC Glucose (other) Osmolality Lactate Calcium POC Ioniz Calcium Juliano Magnesium Total Bilirubin Direct Bilirubin AST ALT Alkaline Phosphatase Total Creatine Kinase Troponin I High Sens 117.0 H* B-Natriuretic Peptide Total Protein Albumin Procalcitonin TSH Free T4 Free T3 Random Cortisol Urine Color Urine Appearance Urine pH Ur Specific [place] Urine Protein Urine Glucose (UA) Urine Ketones Urine Blood Urine Nitrite Urine Bilirubin Urine Urobilinogen Ur Leukocyte Esterase Urine WBC (Auto) Urine RBC (Auto) U Hyaline Cast (Auto) U Epithel Cells (Auto) Urine Bacteria (Auto) Hyaline Casts Diagnostic Findings Echocardiogram 08/08/2024: Normal LV systolic function with ejection fraction 55 to 60%. Moderate LVH. Moderate dilation of the right ventricle and severe dilation of the right atrium. Moderate to severe tricuspid regurgitation. Moderate dilation of the inferior vena cava. Additional imaging at the time of admission revealed a rib fracture and a right pleural effusion. Also a hip hematoma and associated edema. PG Care Time/CCT Total # of Minutes Spent Total Time Spent with Patient: Total time spent is greater than 50% in coordination of care (as documented) at patient's floor/unit and/or counseling patient: Coding Level of Care Code 93878 INT INP/OBS CARE 3/75MIN Diagnoses Bradycardia R00.1 Fall W19.XXXA Paroxysmal A-fib I48.0
[2024-08-08] MEDS: busPIRone 5 MG TAB PO SCH (20:02)
[2024-08-09 07:18] LABS: Hematocrit (blood only) 28.7 % (42.0-52.0); Hemoglobin 9.8 g/dl (14.0-18.0); Mean Corpuscular Hemoglobin 34.4 pg (25.0-34.0); Mean Corpuscular Hgb Conc 34.1 g/dL (32.0-36.0); Mean Corpuscular Volume 100.7 fL (80.0-100.0); Mean Platelet Volume 12.5 fL (9.4-12.4); Nucleated RBC # (auto) 0.02 K/uL (0.00-0.12); Nucleated RBC % (auto) 0.4 %; Platelet Count 48 K/uL (130-400); RDW Coefficient of Variation 19.9 % (11.5-14.5); RDW Standard Deviation 72.2 fL (36.4-46.3); Red Blood Count 2.85 M/uL (4.70-6.10)
[2024-08-09 07:45] LABS: Albumin Level 3.4 gm/dl (3.4-5.0); Bilirubin Direct 0.9 mg/dl (0-0.2); Calcium 8.4 mg/dl (8.6-10.3); Creatinine Clr Calc Pharmacy 22.6 ml/min; Potassium 4.9 mmol/L (3.5-5.1); Total Protein 5.3 gm/dl (6.0-8.3)
--- NOTE | 2024-08-09 11:47 | Hospitalist Progress Note ---
Date of Service August 09, 2024 Assessment & Plan (1) Syncope: Plan: Recurrent episodes of syncope probably related to junctional bradycardia and possibly third-degree AV block. Metoprolol has been discontinued. Now resolved. He is in normal sinus rhythm. Cardiology consultation and recommendations appreciated. Telemetry. (2) Contusion of head: Plan: Mid forehead area. This occurred when he had a syncopal episode and fell. Local care (3) Hypothermia: Plan: Warming blanket was applied until temperature normalized. Probably related to low thyroid levels. Cytomel has been started. Supportive care (4) Paroxysmal A-fib: Plan: Past history of atrial fibrillation. On admission his EKG reveals what appears to be a junctional bradycardia. He may also have had episodes of third-degree AV block also. Metoprolol has been discontinued. He is now in normal sinus rhythm. Thyroid replacement has been ordered . Telemetry. Cardiology consultation appreciated. Eliquis has been discontinued (5) Type 2 diabetes mellitus: Plan: ADA diet. Sliding scale coverage as needed (6) Hypertension: Plan: Metoprolol has been discontinued. Stable overall (7) Chronic kidney disease, stage III (moderate): Plan: Currently stable. Monitor intake and output. Serial labs (8) Primary hypothyroidism: Plan: Free T3 levels are low. Cytomel replacement therapy has been started (9) CLL (chronic lymphocytic leukemia): Plan: Stable. No indication for emergent treatment at this time (10) Hyponatremia: Plan: Chronically low but asymptomatic. Serum osmolarity is normal. Will follow (11) Hyperkalemia: Plan: Potassium 5.7 on admission. Now normal. Avoid JOHANNA inhibitors, ARB, spironolactone, potassium supplementation. Serial labs (12) Constipation: Plan: Scheduled dosing of MiraLAX and Colace ordered. Fleet enema will be given today, August 09 Plan Hopeful discharge to [facility] tomorrow, August 10 Admission and Anticipated Discharge Date Admission Date: August 08, 2024 Subjective His junctional bradycardia and third-degree AV block have resolved since he has been off the metoprolol. Cardiology consultation appreciated. It appears he can avoid permanent pacemaker placement at this time. Cytomel was added for low free T3 levels. He is constipated and this has been addressed with scheduled dosing of MiraLAX and Colace along with a Fleet enema given today, August 09. OT and PT assessments have been requested. He will be discharged to [facility] tomorrow, August 10 sodium remains chronically low at 128 but asymptomatic. Serum osmolarity is normal. Review of Systems 2 Review of Systems: Constitutionalno fever or chills ENTno blurred vision, no double vision, no epistaxis, no sore throat Respiratoryno cough, no wheezing, no shortness of breath Cardiacno palpitations, no chest pain, no syncope Charity nausea, vomiting, diarrhea, melena, hematochezia GUno urinary retention, no urinary incontinence, no dysuria, no hematuria Musculoskeletalno joint pain, no muscle tenderness Skinno bruising, no rashes, no pruritus Neurono isolated weakness, no paresthesia. Recurrent syncopal episodes Psychno depression, no anxiety Physical Exam 2 Physical Exam: General-alert and oriented x3, no fever, no chills HEENT-head atraumatic and normocephalic, pupils equal and reactive to light, extraocular muscles intact Neck-no lymphadenopathy or thyromegaly, trachea midline Chest-clear to auscultation. No rales, wheezing or rhonchi Cardiac-regular rate and rhythm. Normal S1 and S2 Abdomen-normal bowel sounds, no hepatosplenomegaly Extremities-no cyanosis, clubbing, or edema Neuro-cranial nerves II through XII intact, motor and sensory function within normal limits, strength symmetrical with generalized weakness consistent with advanced age, no focal deficits Psych-normal affect, normal mood Results & Data Results & Data Vital Signs (Past 12 Hours) Vital Signs Temp Pulse Pulse Resp BP Pulse Ox O2 Del Method 08/09/24 11:20 36.6 C 69 18 99 Room Air 08/09/24 09:00 67 08/09/24 09:00 Room Air 08/09/24 08:55 36.4 C L 69 18 110/65 98 Room Air 08/09/24 03:17 35.9 C L 66 18 116/75 97 Room Air Laboratory Results 08/09/24 06:37 08/09/24 06:37 PG Care Time/CCT Total # of Minutes Spent Total Time Spent with Patient: Total time spent is greater than 50% in coordination of care (as documented) at patient's floor/unit and/or counseling patient: Coding Level of Care Code 04127 SUB INP/OBS CARE 3/50MIN Diagnoses Syncope R55 Syncope type: unspecified Contusion of head S00.93XA Contusion of head detail: unspecified part of head Encounter type: initial encounter Hypothermia T68.XXXA Encounter type: initial encounter Paroxysmal A-fib I48.0 Type 2 diabetes mellitus E11.9 Primary hypertension I10 Hypertension type: primary hypertension Chronic kidney disease, stage III (moderate) N18.30 Primary hypothyroidism E03.9 CLL (chronic lymphocytic leukemia) C91.10 Hyponatremia E87.1 Hyperkalemia E87.5 Constipation K59.00 (1) Syncope Syncope type: unspecified Qualified Code(s): R55 - Syncope and collapse (2) Contusion of head Contusion of head detail: unspecified part of head Encounter type: initial encounter Qualified Code(s): S00.93XA - Contusion of unspecified part of head, initial encounter (3) Hypothermia Encounter type: initial encounter Qualified Code(s): T68.XXXA - Hypothermia, initial encounter (6) Hypertension Hypertension type: primary hypertension Qualified Code(s): I10 - Essential (primary) hypertension
[2024-08-09] MEDS: SOD PHOSPHATE/SOD BIPHOSPHATE ENEMA 132 ML BTL PR STA (12:05)
[2024-08-09] MEDS: POLYETHYLENE (MIRALAX) 17 GM PACK PO SCH (12:06)
--- NOTE | 2024-08-09 16:39 | Cardiology Progress Note ---
Date of Service August 09, 2024 Assessment & Plan (1) Bradycardia: (2) Fall: (3) Paroxysmal A-fib: Plan 1. Fall: Long history of ambulatory dysfunction and frequent falls. Unwitnessed fall leading to his admission. Certainly possible this represents symptoms of conduction disease. However, he also has additional reasons for falling. No witnessed loss of consciousness. He feels most of his falls are mechanical in nature. 2. Atrial fibrillation: Reported to be paroxysmal. In a junctional rhythm initially during his hospitalization now in a sinus rhythm. On apixaban as an outpatient. Currently being held. 3. Bradycardia: Initially junctional rhythm, yesterday he had what appeared to be fairly high degree AV block, this morning he has a normal sinus rhythm with normal MI interval. This very likely his conduction trouble was related to high doses of metoprolol succinate. I think we have the luxury of watching his heart rate here in the hospital. He is not likely to have tachycardia while in sinus rhythm. However, at some point he may transition back to atrial fibrillation and will require some rate control. Will have to see about an intermediate dose of metoprolol succinate. 4. Elevated troponin: I think this is likely related to demand ischemia from his fall, relative bradycardia and hypothermia. I do not believe this represents an acute coronary syndrome. 5. Elevated BNP: Likely related to his right heart failure. 6. Right heart failure: He has an element of right heart failure manifest primarily by lower extremity edema. This is most likely related to severe tricuspid regurgitation. He appears to be a poor candidate for any intervention and will simply need to monitor his volume status and administer diuretics as tolerated. I think if his heart rate and conduction remain normal he could be safely discharged to rehab or an intermediate care facility as planned. Some form of heart rate monitoring would be advisable either outpatient Holter or at a facility to see if he has high heart rates and atrial fibrillation. Reinitiate apixaban if he is not felt to be high risk for falls. Cardiology will sign off at this point. Please contact the on-call [facility] microbiology lab manager if there are additional questions or concerns. Admission and Anticipated Discharge Date Admission Date: August 08, 2024 Subjective This morning patient claimed to be feeling well. He did not recall much of the events leading up to his admission. He does admit to falling on occasion but blames this on leg weakness and unsteadiness. He did not endorse symptoms of dizziness, lightheadedness or presyncope. No current symptoms of dyspnea. No chest pain. Review of Systems Review of Systems: Per HPI not aware of any palpitations. Physical Exam Physical Exam: He was alert and oriented and answered all questions appropriately. HEENT: Pupils are equal and reactive to light and accommodation. Extraocular movements are intact. The sclerae are anicteric. Neuro: Cranial nerves intact Lungs: Clear to auscultation bilaterally. He has good air movement without use of accessory muscles. No rales wheezes or rhonchi. Cardiac: Heart demonstrates a regular rhythm. Normal S1 and S2. Holosystolic murmur. Pulses: The patient has palpable radial pulses bilaterally that are equal in intensity Extremities: There was no evidence of hypoperfusion. There is no cyanosis or clubbing. Mild lower extremity edema Skin: I did not appreciate any rashes on examination today. Results & Data Vital Signs (Past 12 Hours) Vital Signs Temp Pulse Pulse Resp BP Pulse Ox O2 Del Method 08/09/24 15:29 36.4 C L 72 20 114/71 99 Room Air 08/09/24 14:03 67 08/09/24 11:20 36.6 C 69 18 99 Room Air 08/09/24 09:00 67 08/09/24 09:00 Room Air 08/09/24 08:55 36.4 C L 69 18 110/65 98 Room Air Laboratory Results Abnormal Lab Results 08/08/24 08/09/24 08/09/24 19:58 06:37 07:29 WBC 5.70 RBC 2.85 L Hgb 9.8 L Hct 28.7 L MCV 100.7 H MCH 34.4 H MCHC 34.1 RDW Std Deviation 72.2 H RDW Coeff of Gilbert 19.9 H Plt Count 48 L MPV 12.5 H Absolute Nucleated RBC 0.02 Nucleated RBC % (auto) 0.4 Sodium 128 L Potassium 4.9 Chloride 99 Carbon Dioxide 23 Anion Gap 6 BUN 65 H Creatinine 2.50 H Est Cr Clr Drug Dosing 22.6 eGFR 23.96 BUN/Creatinine Ratio 26.0 H Glucose 85 POC Glucose 129 H 102 H Calcium 8.4 L Total Bilirubin 3.0 H Direct Bilirubin 0.9 H AST 32 ALT 16 Alkaline Phosphatase 64 Total Protein 5.3 L Albumin 3.4 Anaplasma Smear See Comment Babesia Smear See Comment Lyme Disease Screen Negative 08/09/24 08/09/24 11:19 16:22 WBC RBC Hgb Hct MCV MCH MCHC RDW Std Deviation RDW Coeff of Gilbert Plt Count MPV Absolute Nucleated RBC Nucleated RBC % (auto) Sodium Potassium Chloride Carbon Dioxide Anion Gap BUN Creatinine Est Cr Clr Drug Dosing eGFR BUN/Creatinine Ratio Glucose POC Glucose 133 H 114 H Calcium Total Bilirubin Direct Bilirubin AST ALT Alkaline Phosphatase Total Protein Albumin Anaplasma Smear Babesia Smear Lyme Disease Screen PG Care Time/CCT Total # of Minutes Spent Total Time Spent with Patient: Total time spent is greater than 50% in coordination of care (as documented) at patient's floor/unit and/or counseling patient: Coding Level of Care Code 78238 SUB INP/OBS CARE 2/35MIN Diagnoses Bradycardia R00.1 Fall W19.XXXA Paroxysmal A-fib I48.0
--- NOTE | 2024-08-09 20:51 | Electrocardiogram Report ---
Test Reason : Blood Pressure : */* mmHG Vent. Rate : 53 BPM Atrial Rate : * BPM P-R Int : * ms QRS Dur : 136 ms QT Int : 526 ms P-R-T Axes : * 50 123 degrees QTcB Int : 493 ms junctional rhythm Non-specific intra-ventricular conduction block Poor R wave progression, consider anterior AR vs. lead placement vs. LVH Abnormal ECG Confirmed by Cali Cantu ([id number] on 08/09/2024 8:50:39 PM Referred By: REFERRED SELF Confirmed By: Cali Cantu
[2024-08-09] MEDS: DOCUSATE SODIUM/SENNA 50/8.6MG TAB PO SCH (21:00)
[2024-08-10 07:03] LABS: Basophils # (auto) 0.02 K/uL (0.00-0.20); Basophils % (auto) 0.4 %; Eosinophils # (auto) 0.05 K/uL (0.00-0.50); Eosinophils % (auto) 0.9 %; Hematocrit (blood only) 29.5 % (42.0-52.0); Hemoglobin 10.2 g/dl (14.0-18.0); Immature Granulocytes # (auto) 0.04 K/uL (0.01-0.20); Immature Granulocytes % (auto) 0.7 %; Lymphocytes # (auto) 0.75 K/uL (1.20-3.40); Lymphocytes % (auto) 13.5 %; Mean Corpuscular Hemoglobin 34.5 pg (25.0-34.0); Mean Corpuscular Hgb Conc 34.6 g/dL (32.0-36.0); Mean Corpuscular Volume 99.7 fL (80.0-100.0); Mean Platelet Volume 11.5 fL (9.4-12.4); Monocytes # (auto) 0.73 K/uL (0.11-0.59); Monocytes % (auto) 13.2 %; Neutrophils # (auto) 3.95 K/uL (1.40-6.50); Neutrophils % (auto) 71.3 %; Nucleated RBC # (auto) 0.02 K/uL (0.00-0.12); Nucleated RBC % (auto) 0.4 %; Platelet Count 54 K/uL (130-400); RDW Coefficient of Variation 19.8 % (11.5-14.5); RDW Standard Deviation 71.4 fL (36.4-46.3); Red Blood Count 2.96 M/uL (4.70-6.10); White Blood Count 5.54 K/ul (4.8-10.8)
[2024-08-10 08:00] LABS: BUN Creatinine Ratio 25.8 (10-20); Calcium 8.5 mg/dl (8.6-10.3); Creatinine Clr Calc Pharmacy 24.7 ml/min; Potassium 4.6 mmol/L (3.5-5.1)
--- NOTE | 2024-08-10 10:47 | Hospitalist Progress Note ---
Date of Service August 10, 2024 Assessment & Plan (1) Syncope: Plan: Recurrent episodes of syncope prior to admission probably related to junctional bradycardia and possibly third-degree AV block. Metoprolol has been discontinued. Dysrhythmia has now resolved. He is in normal sinus rhythm. Cardiology consultation and recommendations appreciated. Telemetry. (2) Contusion of head: Plan: Mid forehead area. This occurred when he had a syncopal episode and fell. Local care (3) Hypothermia: Plan: Warming blanket was applied until temperature normalized. Now resolved. Probably related to low thyroid levels. Cytomel has been started. Supportive care (4) Paroxysmal A-fib: Plan: Past history of atrial fibrillation. On admission his EKG reveals what appears to be a junctional bradycardia. He may also have had episodes of third-degree AV block also. Metoprolol has been discontinued. He is now in normal sinus rhythm. Thyroid replacement has been ordered . Telemetry. Cardiology consultation appreciated. Eliquis has been discontinued (5) Type 2 diabetes mellitus: Plan: ADA diet. Sliding scale coverage as needed (6) Hypertension: Plan: Metoprolol has been discontinued. Stable overall (7) Chronic kidney disease, stage III (moderate): Plan: Currently stable. Monitor intake and output. Serial labs (8) Primary hypothyroidism: Plan: Free T3 levels are low. Cytomel replacement therapy has been started (9) CLL (chronic lymphocytic leukemia): Plan: Chronic thrombocytopenia. In addition to his Eliquis, which has been discontinued, he has evidence of hematuria in the [place] catheter. Serial labs. No indication for emergent treatment at this time (10) Hyponatremia: Plan: Chronically low but asymptomatic. Serum osmolarity is normal. Will follow (11) Hyperkalemia: Plan: Potassium 5.7 on admission. Now normal. Avoid JOHANNA inhibitors, ARB, spironolactone, potassium supplementation. Serial labs (12) Constipation: Plan: Scheduled dosing of MiraLAX and Colace ordered. Fleet enema was administered on August 09 Plan Awaiting insurance authorization for discharge to [facility] Admission and Anticipated Discharge Date Admission Date: August 08, 2024 Subjective Complaining of thought fogginess this morning. I suspect he received a dose of as needed clonazepam last night. He has CLL and chronic thrombocytopenia. Eliquis has been discontinued. He has some hematuria in the [place] catheter. Between the Eliquis and chronic thrombocytopenia from his CLL this is not surprising. Hopefully the hematuria will resolve since Eliquis has been discontinued. Heart rate has improved and stabilized in normal sinus rhythm since metoprolol was discontinued. He is now on Cytomel due to low free T3 levels. Hypothermia has resolved. Review of Systems 2 Review of Systems: Constitutionalno fever or chills ENTno blurred vision, no double vision, no epistaxis, no sore throat Respiratoryno cough, no wheezing, no shortness of breath Cardiacno palpitations, no chest pain, no syncope Charity nausea, vomiting, diarrhea, melena, hematochezia GUFoley catheter in place with evidence of hematuria Musculoskeletalno joint pain, no muscle tenderness Skinno bruising, no rashes, no pruritus Neurogeneralized weakness. Recurrent syncopal episodes prior to this admission Psychno depression, no anxiety Physical Exam 2 Physical Exam: General-the patient states he feels groggy this morning but he is oriented x3. No fever, no chills HEENT-head atraumatic and normocephalic, pupils equal and reactive to light, extraocular muscles intact Neck-no lymphadenopathy or thyromegaly, trachea midline Chest-clear to auscultation. No rales, wheezing or rhonchi Cardiac-regular rate and rhythm. Normal S1 and S2 Abdomen-normal bowel sounds, no hepatosplenomegaly Extremities-no cyanosis, clubbing, or edema GUFoley catheter in place with evidence of hematuria Neuro-cranial nerves II through XII intact, motor and sensory function within normal limits, strength symmetrical with generalized weakness consistent with advanced age, no focal deficits Psych-normal affect, normal mood Results & Data Results & Data Vital Signs (Past 12 Hours) Vital Signs Temp Pulse Pulse Pulse Resp BP Pulse Ox 08/10/24 08:00 08/10/24 07:56 36.9 C 77 20 130/76 96 08/10/24 03:36 36.5 C 76 103/61 94 08/10/24 00:00 73 08/09/24 23:13 36.4 C L 74 114/70 96 O2 Del Method 08/10/24 08:00 Room Air 08/10/24 07:56 Room Air 08/10/24 03:36 Room Air 08/10/24 00:00 08/09/24 23:13 Room Air Laboratory Results 08/10/24 06:27 03/22/25 06:27 PG Care Time/CCT Total # of Minutes Spent Total Time Spent with Patient: Total time spent is greater than 50% in coordination of care (as documented) at patient's floor/unit and/or counseling patient: Coding Level of Care Code 03908 SUB INP/OBS CARE 2/35MIN Diagnoses Syncope R55 Syncope type: unspecified Contusion of head S00.93XA Contusion of head detail: unspecified part of head Encounter type: initial encounter Hypothermia T68.XXXA Encounter type: initial encounter Paroxysmal A-fib I48.0 Type 2 diabetes mellitus E11.9 Primary hypertension I10 Hypertension type: primary hypertension Chronic kidney disease, stage III (moderate) N18.30 Primary hypothyroidism E03.9 CLL (chronic lymphocytic leukemia) C91.10 Hyponatremia E87.1 Hyperkalemia E87.5 Constipation K59.00 (1) Syncope Syncope type: unspecified Qualified Code(s): R55 - Syncope and collapse (2) Contusion of head Contusion of head detail: unspecified part of head Encounter type: initial encounter Qualified Code(s): S00.93XA - Contusion of unspecified part of head, initial encounter (3) Hypothermia Encounter type: initial encounter Qualified Code(s): T68.XXXA - Hypothermia, initial encounter (6) Hypertension Hypertension type: primary hypertension Qualified Code(s): I10 - Essential (primary) hypertension
[2024-08-11 07:50] LABS: Basophils # (auto) 0.02 K/uL (0.00-0.20); Basophils % (auto) 0.3 %; Eosinophils % (auto) 1.7 %; Hematocrit (blood only) 32.7 % (42.0-52.0); Hemoglobin 11.2 g/dl (14.0-18.0); Immature Granulocytes # (auto) 0.03 K/uL (0.01-0.20); Immature Granulocytes % (auto) 0.5 %; Lymphocytes # (auto) 0.87 K/uL (1.20-3.40); Lymphocytes % (auto) 14.4 %; Mean Corpuscular Hemoglobin 34.5 pg (25.0-34.0); Mean Corpuscular Hgb Conc 34.3 g/dL (32.0-36.0); Mean Corpuscular Volume 100.6 fL (80.0-100.0); Mean Platelet Volume 10.2 fL (9.4-12.4); Monocytes # (auto) 0.74 K/uL (0.11-0.59); Monocytes % (auto) 12.2 %; Neutrophils # (auto) 4.29 K/uL (1.40-6.50); Neutrophils % (auto) 70.9 %; Platelet Count 61 K/uL (130-400); RDW Coefficient of Variation 19.9 % (11.5-14.5); Red Blood Count 3.25 M/uL (4.70-6.10); White Blood Count 6.05 K/ul (4.8-10.8)
[2024-08-11 07:55] LABS: BUN Creatinine Ratio 29.2 (10-20); Calcium 8.6 mg/dl (8.6-10.3); Creatinine Clr Calc Pharmacy 33.1 ml/min; Potassium 4.6 mmol/L (3.5-5.1)
--- NOTE | 2024-08-11 10:05 | Hospitalist Progress Note ---
Date of Service August 11, 2024 Assessment & Plan (1) Syncope: Plan: Recurrent episodes of syncope prior to admission probably related to junctional bradycardia and possibly third-degree AV block. Metoprolol has been discontinued. Bradycardia has now resolved. EKG done today, August 11, reveals atrial fibrillation with controlled rate. Eliquis has also been discontinued. Cardiology consultation and recommendations appreciated. Telemetry. (2) Contusion of head: Plan: Mid forehead area. This occurred when he had a syncopal episode and fell. Local care (3) Hypothermia: Plan: Warming blanket was applied until temperature normalized. Now resolved. Probably related to low thyroid levels on admission. Cytomel has been started. Supportive care (4) Paroxysmal A-fib: Plan: Past history of atrial fibrillation. On admission his EKG reveals what appears to be a junctional bradycardia. He may also have had episodes of third-degree AV block also. Metoprolol has been discontinued. EKG done today, August 11, reveals atrial fibrillation with controlled ventricular rate. He is now on Cytomel thyroid replacement. Telemetry while hospitalized. Cardiology consultation appreciated. Eliquis has also been discontinued (5) Type 2 diabetes mellitus: Plan: Stable. ADA diet. Sliding scale coverage as needed (6) Hypertension: Plan: Metoprolol has been discontinued. Stable overall (7) Chronic kidney disease, stage III (moderate): Plan: Currently stable. Creatinine has actually improved down to 1.7. Monitor intake and output. Serial labs (8) Primary hypothyroidism: Plan: Free T3 levels were low on admission. Cytomel replacement therapy has been started (9) CLL (chronic lymphocytic leukemia): Plan: Chronic pancytopenia with thrombocytopenia. Eliquis has been discontinued due to presence of hematuria and thrombocytopenia. Hematuria has fortunately resolved. Serial labs. No indication for emergent treatment of CLL at this time (10) Hyponatremia: Plan: Chronically low but asymptomatic. Serum osmolarity is normal. Will follow (11) Hyperkalemia: Plan: Potassium 5.7 on admission. Now normal. Avoid JOHANNA inhibitors, ARB, spironolactone, potassium supplementation. Serial labs (12) Constipation: Plan: Scheduled dosing of MiraLAX and Colace ordered. Fleet enema was administered on August 09 Plan discharge to [facility] when arrangements are finalized. Hopefully tomorrow, August 12 Admission and Anticipated Discharge Date Admission Date: August 08, 2024 Subjective Alert and oriented. No new problems. Repeat EKG reveals atrial fibrillation with controlled rate. He is now off metoprolol. Eliquis has also been discontinued. Hematuria appears to have resolved. [place] catheter will be removed today, August 11. Hopefully he can go to [facility] tomorrow, August 12. Review of Systems 2 Review of Systems: Constitutionalno fever or chills ENTno blurred vision, no double vision, no epistaxis, no sore throat Respiratoryno cough, no wheezing, no shortness of breath Cardiacno palpitations, no chest pain, no syncope Charity nausea, vomiting, diarrhea, melena, hematochezia GUFoley catheter in place with evidence of hematuria resolution Musculoskeletalno joint pain, no muscle tenderness Skinno bruising, no rashes, no pruritus Neurogeneralized weakness. Recurrent syncopal episodes prior to this admission Psychno depression, no anxiety Physical Exam 2 Physical Exam: General-the patient states he feels groggy this morning but he is oriented x3. No fever, no chills HEENT-head atraumatic and normocephalic, pupils equal and reactive to light, extraocular muscles intact Neck-no lymphadenopathy or thyromegaly, trachea midline Chest-clear to auscultation. No rales, wheezing or rhonchi Cardiac-irregular rhythm. Controlled rate. Normal S1 and S2 Abdomen-normal bowel sounds, no hepatosplenomegaly Extremities-no cyanosis, clubbing, or edema GUFoley catheter in place without hematuria Neuro-cranial nerves II through XII intact, motor and sensory function within normal limits, strength symmetrical with generalized weakness consistent with advanced age, no focal deficits Psych-normal affect, normal mood Results & Data Results & Data Vital Signs (Past 12 Hours) Vital Signs Temp Pulse Resp BP Pulse Ox O2 Del Method 08/11/24 07:22 36.3 C L 88 17 129/87 98 Room Air 08/11/24 02:48 36.5 C 97 H 18 140/84 99 Room Air 08/10/24 22:32 36.6 C 79 18 146/86 H 97 Room Air Laboratory Results 08/11/24 07:17 08/11/24 07:17 PG Care Time/CCT Total # of Minutes Spent Total Time Spent with Patient: Total time spent is greater than 50% in coordination of care (as documented) at patient's floor/unit and/or counseling patient: Coding Level of Care Code 91397 SUB INP/OBS CARE 50MIN Diagnoses Syncope R55 Syncope type: unspecified Contusion of head S00.93XA Contusion of head detail: unspecified part of head Encounter type: initial encounter Hypothermia T68.XXXA Encounter type: initial encounter Paroxysmal A-fib I48.0 Type 2 diabetes mellitus E11.9 Primary hypertension I10 Hypertension type: primary hypertension Chronic kidney disease, stage III (moderate) N18.30 Primary hypothyroidism E03.9 CLL (chronic lymphocytic leukemia) C91.10 Hyponatremia E87.1 Hyperkalemia E87.5 Constipation K59.00 (1) Syncope Syncope type: unspecified Qualified Code(s): R55 - Syncope and collapse (2) Contusion of head Contusion of head detail: unspecified part of head Encounter type: initial encounter Qualified Code(s): S00.93XA - Contusion of unspecified part of head, initial encounter (3) Hypothermia Encounter type: initial encounter Qualified Code(s): T68.XXXA - Hypothermia, initial encounter (6) Hypertension Hypertension type: primary hypertension Qualified Code(s): I10 - Essential (primary) hypertension
--- NOTE | 2024-08-11 12:34 | Electrocardiogram Report ---
Test Reason : Blood Pressure : */* mmHG Vent. Rate : 88 BPM Atrial Rate : * BPM P-R Int : * ms QRS Dur : 112 ms QT Int : 368 ms P-R-T Axes : * 29 216 degrees QTcB Int : 445 ms Atrial fibrillation Low voltage QRS Poor R wave progression, consider anterior PR vs. lead placement vs. LVH T-wave inversion in Lateral leads Abnormal ECG When compared with ECG of 07-Aug-2024 23:20, Atrial fibrillation has replaced junctional rhythm Vent. rate has increased by 35 bpm Confirmed by James Amador ([id number]) on 08/11/2024 12:34:23 PM Referred By: REFERRED SELF Confirmed By: James Amador
--- NOTE | 2024-08-11 13:06 | Cardiology Progress Note ---
Date of Service August 11, 2024 Assessment & Plan (1) Paroxysmal A-fib: (2) Bradycardia: (3) Fall: Plan History of paroxysmal atrial fibrillation, presented with junctional rhythm and beta-blockers were held, now with recurrent atrial fibrillation. Asymptomatic and normotensive, but rate appears excessive at times (likely flutter as it can remain constant at 130 bpm for half an hour). As per Dr. Cantu's suggestion, will attempt to reintroduce beta-na but at lower dose (previously was on 100 mg metoprolol succinate daily). Initiate metoprolol tartrate 12.5 mg every 12 hours, titrate based on rhythm/rate response. Would also consider restarting apixaban, however given his thrombocytopenia and falls (has multiple ecchymoses), discussion of risk/benefits with the patient is warranted. Patient is followed by Dr. Mathew as an outpatient. Admission and Anticipated Discharge Date Admission Date: August 08, 2024 Subjective 89-year-old man with paroxysmal atrial fibrillation who was admitted with bradycardia, metoprolol held, noted to have recurrent atrial flutter with intermittently rapid ventricular rate this morning. He denies any chest pain, dyspnea, lightheadedness, or subjective palpitations. No somatic complaints. Telemetry shows sinus rhythm converting to atrial flutter with variable rate (75-130 bpm). At times the rate remains at the high end of this range for up to half an hour. Physical Exam Physical Exam: No distress. BP normotensive. Pulse 120 bpm and irregular. Respirations 18 unlabored. Skin: Scattered ecchymoses, no generalized lesions. HEENT: unremarkable. Neck: JVP at the clavicle at 90 degrees, no carotid bruits. Lungs: clear. Cardiac: Irregular/tachycardic rhythm, normal S1-2, no obvious murmur. Abdomen: benign. Extremities: 1+ pretibial edema, stasis changes. Neurologic: normal affect and conversation, nonfocal. Results & Data Vital Signs (Past 12 Hours) Vital Signs Temp Pulse Resp BP Pulse Ox O2 Del Method 08/11/24 10:45 97.5 F L 123 H 18 133/84 97 Room Air 08/11/24 07:22 97.3 F L 88 17 129/87 98 Room Air 08/11/24 02:48 97.7 F 97 H 18 140/84 99 Room Air Laboratory Results Hemoglobin 11.2 with normal white count, platelet count 61,000. Sodium 132, potassium 4.6, BUN 50, creatinine 1.71 (2.29 yesterday). Diagnostic Findings ECG today showed atrial fibrillation with ventricular rate 88 bpm, low voltage QRS, poor R wave progression, T wave inversion in the lateral leads. Compared with 08/07/2024, A-fib has replaced junctional rhythm and ventricular rate has increased by 35 bpm. PG Care Time/CCT Total # of Minutes Spent Total Time Spent with Patient: Total time spent is greater than 50% in coordination of care (as documented) at patient's floor/unit and/or counseling patient: Coding Level of Care Code 14091 SUB INP/OBS CARE 235MIN Diagnoses Paroxysmal A-fib I48.0 Bradycardia R00.1 Fall W19.XXXA
[2024-08-11] MEDS: METOPROLOL TARTRATE 25 MG TAB PO SCH (16:38)
[2024-08-12 07:44] LABS: Basophils # (auto) 0.03 K/uL (0.00-0.20); Basophils % (auto) 0.4 %; Eosinophils # (auto) 0.13 K/uL (0.00-0.50); Eosinophils % (auto) 1.9 %; Hematocrit (blood only) 32.7 % (42.0-52.0); Hemoglobin 11.1 g/dl (14.0-18.0); Immature Granulocytes # (auto) 0.04 K/uL (0.01-0.20); Immature Granulocytes % (auto) 0.6 %; Lymphocytes # (auto) 0.81 K/uL (1.20-3.40); Lymphocytes % (auto) 12.1 %; Mean Corpuscular Hemoglobin 34.4 pg (25.0-34.0); Mean Corpuscular Hgb Conc 33.9 g/dL (32.0-36.0); Mean Corpuscular Volume 101.2 fL (80.0-100.0); Mean Platelet Volume 10.5 fL (9.4-12.4); Monocytes # (auto) 0.82 K/uL (0.11-0.59); Monocytes % (auto) 12.3 %; Neutrophils # (auto) 4.85 K/uL (1.40-6.50); Neutrophils % (auto) 72.7 %; Nucleated RBC # (auto) 0.02 K/uL (0.00-0.12); Nucleated RBC % (auto) 0.3 %; Platelet Count 66 K/uL (130-400); RDW Coefficient of Variation 19.9 % (11.5-14.5); RDW Standard Deviation 74.1 fL (36.4-46.3); Red Blood Count 3.23 M/uL (4.70-6.10); White Blood Count 6.68 K/ul (4.8-10.8)
[2024-08-12 08:03] LABS: BUN Creatinine Ratio 27.6 (10-20); Calcium 8.5 mg/dl (8.6-10.3); Creatinine Clr Calc Pharmacy 36.3 ml/min; Potassium 4.7 mmol/L (3.5-5.1)
[2024-08-12 12:15] VITALS: BP 124/80; PULSE 100; RESP 18; TEMP 97.7; O2SAT 100
--- NOTE | 2024-08-12 12:41 | Discharge Summary ---
Date of Service August 12, 2024 Admission HPI Per Admitting Provider Maxwell Encinas Is an 89-year-old male with history of atrial fibrillation on Eliquis anticoagulation, diabetes, hyperlipidemia, hypertension and CKD presenting from home with progressive weakness and fall. Patient was recently admitted to [facility] from 07/14 - 07/24 after presenting with ambulatory dysfunction and falls. He was ultimately discharged home. His son has been in contact with him since he returned home and patient reports that he has had continued weakness. His son came to visit him yesterday - had a PCP appointment on 08/06/24. Son reports that his PCP was going to try to get pat ient placed in a rehab facility to improve strength and balance. This evening the patient was complaining of some constipation. He did not eat dinner. He went upstairs to use the bathroom - son reports hearing a "thud" and finding the patient on his bedroom floor with a left frontal forehead abrasion. Son states that patient was slightly confused when he first found him but then slowly retur goran to normal. He got up and passed out again. 911 was called. Patient reportedly passed out two additional times. Presently with no complaints In the ER patient hypothermic with temperature of 31.8. External warming blanket placed. Otherwise HD stable with adequate oxygenation on RA. ER Course: Cefepime Lasix 40mg IV Admission Exam (Per Admitting) Constitutional The patient is awake, alert and oriented 3, well developed and well nourished, normocephalic and atraumatic, lying in bed and in no acute distress. HEENT--PERRL, EOMI, mucous membranes and oropharynx mildly dry Neck--supple. No JVD. No bruits. Thyroid normal, trachea midline, no adenopathy. Heart--normal S1 and S2. No murmurs, rubs or gallops. Lungs--clear bilaterally, no respiratory distress, no accessory muscle use. Abdomen--normal bowel sounds and soft. Extremities--no cyanosis or clubbing. No edema. Dermatologic--normal skin turgor, normal color, no abnormal lymph nodes, no rash. Neurologic--cranial nerves II through XII grossly intact. Rheumatologic--normal range of motion. Psychiatric--normal affect. Discharge Data Consultations 08/08/24 00:37 ED Decision to Admit Stat 08/08/24 04:59 Consult Cardiology Routine Hospital Course (1) Syncope: Recurrent episodes of syncope prior to admission probably related to junctional bradycardia and possibly third-degree AV block. Metoprolol has been discontinued. Bradycardia has now resolved. EKG done today, August 11, reveals atrial fibrillation with controlled rate. Eliquis has also been discontinued. Cardiology consultation and recommendations appreciated. Telemetry. (2) Contusion of head: Mid forehead area. This occurred when he had a syncopal episode and fell. Local care (3) Hypothermia: Warming blanket was applied until temperature normalized. Now resolved. Probably related to low thyroid levels on admission. Cytomel has been started. Supportive care (4) Paroxysmal A-fib: Past history of atrial fibrillation. On admission his EKG reveals what appears to be a junctional bradycardia. He may also have had episodes of third-degree AV block also. . EKG done today, August 11, reveals atrial fibrillation with controlled ventricular rate. He is now on Cytomel thyroid replacement. Telemetry while hospitalized. Cardiology consultation appreciated. Eliquis has also been discontinued Metoprolol changed from 100mg daily to 25mg BID (5) Type 2 diabetes mellitus: Stable. ADA diet. Sliding scale coverage as needed (6) Hypertension: Stable overall (7) Chronic kidney disease, stage III (moderate): Currently stable. Creatinine has actually improved down to 1.7. Monitor intake and output. Serial labs (8) Primary hypothyroidism: Free T3 levels were low on admission. Cytomel replacement therapy has been started (9) CLL (chronic lymphocytic leukemia): Chronic pancytopenia with thrombocytopenia. Eliquis has been discontinued due to presence of hematuria and thrombocytopenia. Hematuria has fortunately resolved. Serial labs. No indication for emergent treatment of CLL at this time (10) Hyponatremia: Chronically low but asymptomatic. Serum osmolarity is normal. Will follow (11) Hyperkalemia: Potassium 5.7 on admission. Now normal. Avoid JOHANNA inhibitors, ARB, spironolactone, potassium supplementation. Serial labs (12) Constipation: Scheduled dosing of MiraLAX and Colace ordered. Fleet enema was administered on August 09 Plan discharge to [facility] when arrangements are finalized. Hopefully tomorrow, August 12 Coding Level of Care Code 44278 INP/OBS DISCH >30 MIN Diagnoses Syncope R55 Syncope type: unspecified Contusion of head S00.93XA Contusion of head detail: unspecified part of head Encounter type: initial encounter Hypothermia T68.XXXA Encounter type: initial encounter Paroxysmal A-fib I48.0 Type 2 diabetes mellitus E11.9 Primary hypertension I10 Hypertension type: primary hypertension Chronic kidney disease, stage III (moderate) N18.30 Primary hypothyroidism E03.9 CLL (chronic lymphocytic leukemia) C91.10 Hyponatremia E87.1 Hyperkalemia E87.5 Constipation K59.00 Time Spent (min) 35
[2024-08-12] MEDS ORDERED: METOPROLOL TARTRATE 25 MG TAB PO SCH (21:00)
[2024-08-13 18:58] LABS: Babesia microti DNA Not Detected (Not Detected)
== END 2024-08-12 12:57 | DRG 309 ==
LOC: ED 23:05 → 2S 08-08 01:25 → SUATTDRO 08-08 01:25 → EDINP 08-08 02:18 → 2S 08-08 02:27
DX: D61.818 Other pancytopenia; S00.83XA Contusion of other part of head, initial encounter; E78.5 Hyperlipidemia, unspecified; Z88.2 Allergy status to sulfonamides; E87.1 Hypo-osmolality and hyponatremia; I25.2 Old myocardial infarction; N18.30 Chronic kidney disease, stage 3 unspecified; R29.6 Repeated falls; I13.0 Hypertensive heart and chronic kidney disease with heart failure and stage 1 through stage 4 chronic kidney disease, or unspecified chronic kidney disease; Z79.01 Long term (current) use of anticoagulants; Y92.003 Bedroom of unspecified non-institutional (private) residence as the place of occurrence of the external cause; Y99.8 Other external cause status; I50.810 Right heart failure, unspecified; E03.9 Hypothyroidism, unspecified; K59.00 Constipation, unspecified; R31.9 Hematuria, unspecified; C91.11 Chronic lymphocytic leukemia of B-cell type in remission; I07.1 Rheumatic tricuspid insufficiency; I24.89 Other forms of acute ischemic heart disease; W19.XXXA Unspecified fall, initial encounter; R68.0 Hypothermia, not associated with low environmental temperature; E11.22 Type 2 diabetes mellitus with diabetic chronic kidney disease; I44.2 Atrioventricular block, complete; I48.0 Paroxysmal atrial fibrillation; E87.5 Hyperkalemia; Z79.890 Hormone replacement therapy; Z79.899 Other long term (current) drug therapy; R00.1 Bradycardia, unspecified; I48.92 Unspecified atrial flutter

== ENCOUNTER 2024-09-02 15:48 | Inpatient (IN) ==
--- NOTE | 2024-09-02 16:40 | Emergency Department Note ---
Impression & Plan Pulmonary edema, Pneumonia, Anasarca, Elevated troponin I level ED Provider Note NAME: HANNAH HE AGE: 89 SEX: M : 1935 ARRIVES VIA: Ambulance INFORMANT: Patient, ED PROVIDER(S): Cal Salinas DO CHIEF COMPLAINT: Leg swelling HPI: The patient is an 89-year-old male who presented to the emergency department for an evaluation of leg swelling. The patient has bilateral lower extremity swelling and ecchymosis but he thinks this is from a fall recently. He is now noticed swelling that goes into his scrotum. He is having difficulty urinating. The patient was at his family doctor's office today for a follow-up. He is had a 25 pound weight gain. He does take Lasix. They were concerned because now his edema appears to go into his scrotum. He was sent to the emergency department for evaluation of volume overload. ROS: See above HPI for pertinent positives & negatives. A total of 10 systems reviewed and were otherwise negative. PAST MEDICAL HISTORY: See Below PAST SURGICAL HISTORY: See Below FAMILY HISTORY: See Below SOCIAL HISTORY: See Below HOME MEDICATIONS: See Below ALLERGIES: See Below VITALS: See Below PHYSICAL EXAMINATION: GENERAL: Patient is awake alert in no acute distress patient is resting comfortably and showing no signs of anxiety EYES: The conjunctivae are clear. The pupils are round and reactive. EARS, NOSE, MOUTH AND THROAT: The nose is without any evidence of any deformity. NECK: The neck is nontender and supple. JVD was noted bilaterally. RESPIRATORY: Normal respiratory effort is noted there is no evidence of wheezing rhonchi or rales CARDIOVASCULAR: Regular rate and rhythm noted there no murmurs rubs or gallops normal S1 normal S2. GASTROINTESTINAL: The abdomen is soft. Abdomen is nontender. : There is significant scrotal swelling noted. MUSCULOSKELETAL/EXTREMITIES: There is no evidence of gross deformity full range of motion is noted in the hips and shoulders. SKIN: Pedal edema was noted bilaterally. There was also edema up to the thighs. There is also ecchymosis on the lateral aspect of the right hip. NEUROLOGIC: Patient is awake alert and oriented x3 MEDICAL DECISION MAKING: The patient is an 89-year-old male who presented to the emergency department for an evaluation of leg swelling. I did receive a phone call from the patient's primary care physician's office. The patient had very severe lower extremity swelling and had a large weight gain over short period of time. The patient himself is very concerned about his scrotal swelling. I discussed the patient's laboratory and radiographic studies with him. He does appear to have signs of possible pneumonia on chest x-ray. For this reason he was treated with antibiotics as well as other laboratory studies were obtained. [facility] to evaluate the patient in the emergency department for further management and disposition. Vital signs are reassuring. He was treated with Lasix in the emergency department. Triage Nursing notes reviewed. Prior medical records reviewed Vital Signs: reviewed and remarkable for no significant abnormalities Differential diagnosis: Infection, dehydration, metabolic abnormality, hypo/hyperglycemia, electrolyte disturbance, anemia, hypoxia, cardiac sources, intracerebral event, toxicologic, neurologic, as well as other pathologies. ER treatment provided: See below Diagnostics interpreted by me: ECG: EKG was obtained in the emergency department. My interpretation is atrial fibrillation at 73 bpm. No PVCs were noted. Nonspecific ST depressions with T wave abnormalities were noted in the low lateral leads. This was compared to a tracing from August 11, 2024. No changes were noted. Cardiac Monitoring: An order was placed for continuous cardiac monitoring. The monitor shows a rate of 72 bpm with atrial fibrillation. Laboratory studies: As stated above and show below. Imaging studies: See below. Radiographic imaging was reviewed by myself Consultation(s): I discussed this case with Dr. Dye who was on-call for [facility]. Past Med/Surg History Problem List (Updated 09/02/24 @ 20:18 by Cal Salinas DO) Elevated troponin I level (Acute) Anasarca (Acute) Pneumonia (Acute) Pulmonary edema (Acute) Heart failure with improved ejection fraction (HFimpEF) Recurrent falls Constipation Hyperkalemia Hyponatremia Primary hypothyroidism Pleural effusion (Acute) Syncope (Acute) Bradycardia (Acute) Contusion of head (Acute) Elevated troponin (Acute) APPLE (acute kidney injury) (Acute) Hypothermia (Acute) Ambulatory dysfunction Fall Chronic constipation Atrial flutter hx of Cholelithiasis Tricuspid regurgitation Gait disturbance (Chronic) Hypothyroidism Paroxysmal A-fib CLL (chronic lymphocytic leukemia) Thrombocytopenia Vitamin D deficiency Vitamin B12 deficiency Hemorrhoids Health care maintenance Dyslipidemia (Chronic) Idiopathic polyneuropathy Type 2 diabetes mellitus (Chronic) Anemia (Chronic) Irritable bowel syndrome (Chronic) Lower back pain (Chronic) Osteoarthritis (Chronic) Insomnia (Chronic) H/O left mastectomy Hypertension Chronic kidney disease, stage III (moderate) follows with Dr. Abrams Medical History Joint pain in fingers of left hand Hyperkalemia Hip hematoma, left Normocytic anemia Hyponatremia Sleep disturbances CKD (chronic kidney disease) Right heart failure Cellulitis, leg Hematoma of left lower leg Fall at home Anasarca Hyperbilirubinemia Localized swelling of both lower legs Elevated LFTs Non-ST elevation PA (NSTEMI) History of cardioversion 07/18/23, [facility] Anticoagulant long-term use eliquis History of anesthesia reaction reports constipation, sleep disturbances and vission changes x 1 year following removal of loose body LLE 2000 History of gout Pancreatic cyst Constipation IBS (irritable bowel syndrome) DM type 2 (diabetes mellitus, type 2) diet controlled, no meds HLD (hyperlipidemia) Leukemia, chronic lymphoid, in remission pt denies per heme records- "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 Monae--on BB and eliquis Benign essential hypertension Surgical History History of lymph node excision 01/2023 off right chest History of surgery removal loose body x 2 LLE History of cataract surgery History of left hip replacement History of right hip replacement History of right mastectomy History of colonoscopy Family History Other No family history of adverse response to anesthesia Denies family history of Ovarian cancer Prostate cancer Breast cancer Lung cancer Colorectal cancer Social History Smoking Status: Never smoker Second Hand Exposure: No; Do You Dip or Chew Tobacco: No; Hx Alcohol Use: No Hx Substance Use: No Preferred Language: [place] Communication Ability: Effective Visual Impairment: No Limitations Hearing Ability: Normal Compliance Advisor Required: No Beliefs That Will Affect Care: None marital status: / Current Living Situation: Alone 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 How many Children do You have Comment: one son Feels Safe at Home: Yes Diet: diabetic caffeine: No Physical Activity Frequency: Does not Exercise Seatbelt Use: always Sunscreen Use: No Do you think of yourself as: straight/heterosexual Gender Identity: Male Assistive Devices: Cane and Walker Allergies Allergies Allergy/AdvReac Type Severity Reaction Status Date / Time Sulfa (Sulfonamide Allergy Intermediate HIVES Verified 09/02/24 14:49 Antibiotics) Home Meds Home Medications Medication Instructions Recorded Confirmed [id number] 250 mg-dha 90 1 cap PO DAILY 09/11/23 09/02/24 mg-epa 160 [id number] capsule (Ocuvite Adult 50 Plus) Previous Rx's Medication Instructions Recorded mecobalamin (vitamin B12) 5,000 2,500 mcg (1/2 x 5,000 mcg) PO Q 03/29/23 mcg disintegrating tablet OTHER DAY #1 tab lancets 33 gauge (OneTouch Delica #100 ea 08/18/23 Plus Lancet) polyethylene glycol 3350 17 17 g PO DAILY PRN constipation 12/20/23 gram/dose oral powder (Miralax) #238 grams blood sugar diagnostic (OneTouch #100 ea 12/29/23 Verio test strips) furosemide 40 mg tablet (Lasix) 40 mg PO DAILY PRN weight gain, 01/05/24 SOB, edema #30 tabs atorvastatin 10 mg tablet 10 mg PO QAM #90 tabs 04/11/24 levothyroxine 75 mcg tablet 75 mcg PO DAILY #90 tabs 06/14/24 clonazepam 0.5 mg tablet 0.5 mg PO HS PRN Insomnia #20 tabs 07/02/24 docusate sodium 100 mg capsule 200 mg (2 x 100 mg) PO DAILY #90 07/26/24 (Colace) caps metoprolol tartrate 25 mg tablet 25 mg PO Q12 30 days #60 tabs 08/12/24 buspirone 5 mg tablet 5 mg PO HS PRN sleep #30 tabs 08/20/24 Results & Data (ED) Vital Signs Vital Signs - 24 hr 09/02/24 15:50 09/02/24 16:09 09/02/24 16:48 Temperature 36.9 C Temperature Source Oral Pulse Rate 76 73 Pulse Rate [Apical] Pulse Rate from SpO2 Sensor Pulse Rhythm Irregular Pulse Rhythm [Apical] Pulse Strength [Apical] Respiratory Rate 19 Respiratory Effort / Characteristics Non-Labored Spontaneous Respiratory Depth Normal Respiratory Pattern Blood Pressure 127/86 Blood Pressure [Right Arm] Blood Pressure Mean 99 Blood Pressure Mean [Right Arm] Blood Pressure Position [Right Arm] Pulse Oximetry 99 Oxygen Delivery Method Room Air Room Air Sepsis Recent Fever Within 48 Hours No Sepsis New/Unexplained Change in Mental Status No Sepsis Action Taken by Nursing No Action Required 09/02/24 17:00 09/02/24 17:30 09/02/24 18:00 Temperature Temperature Source Pulse Rate 73 73 73 Pulse Rate [Apical] Pulse Rate from SpO2 Sensor 73 73 73 Pulse Rhythm Pulse Rhythm [Apical] Pulse Strength [Apical] Respiratory Rate 20 12 12 Respiratory Effort / Characteristics Respiratory Depth Respiratory Pattern Blood Pressure 121/91 121/87 130/91 Blood Pressure [Right Arm] Blood Pressure Mean 106 101 109 Blood Pressure Mean [Right Arm] Blood Pressure Position [Right Arm] Pulse Oximetry 99 100 96 Oxygen Delivery Method Room Air Room Air Sepsis Recent Fever Within 48 Hours Sepsis New/Unexplained Change in Mental Status Sepsis Action Taken by Nursing 09/02/24 19:00 Temperature Temperature Source Pulse Rate Pulse Rate [Apical] 72 Pulse Rate from SpO2 Sensor Pulse Rhythm Pulse Rhythm [Apical] Regular Pulse Strength [Apical] Normal Respiratory Rate 17 Respiratory Effort / Characteristics Non-Labored Respiratory Depth Normal Respiratory Pattern Regular Blood Pressure Blood Pressure [Right Arm] 127/92 Blood Pressure Mean Blood Pressure Mean [Right Arm] 103 Blood Pressure Position [Right Arm] Sitting Pulse Oximetry 96 Oxygen Delivery Method Room Air Sepsis Recent Fever Within 48 Hours Sepsis New/Unexplained Change in Mental Status Sepsis Action Taken by [facility]pc Medications Current Medication List: was personally reviewed by me Laboratory Data Attestation: I reviewed the patient's lab results. 09/02/24 16:24 09/02/24 16:24 Lab Results 09/02/24 09/02/24 Range/Units 16:24 17:29 WBC 5.85 (4.8-10.8) K/ul RBC 3.17 L (4.70-6.10) M/uL Hgb 11.0 L (14.0-18.0) g/dl Hct 32.2 L (42.0-52.0) % MCV 101.6 H (80.0-100.0) fL MCH 34.7 H (25.0-34.0) pg MCHC 34.2 (32.0-36.0) g/dL RDW Std Deviation 70.0 H (36.4-46.3) fL RDW Coeff of Gilbert 18.8 H (11.5-14.5) % Plt Count 86 L (130-400) K/uL MPV 12.2 (9.4-12.4) fL Immature Gran % (Auto) 1.2 % Neut % (Auto) 75.7 % Lymph % (Auto) 10.3 % Elmore % (Auto) 12.1 % Eos % (Auto) 0.2 % Baso % (Auto) 0.5 % Neut # (Auto) 4.43 (1.40-6.50) K/uL Lymph # (Auto) 0.60 L (1.20-3.40) K/uL Elmore # (Auto) 0.71 H (0.11-0.59) K/uL Eos # (Auto) 0.01 (0.00-0.50) K/uL Baso # (Auto) 0.03 (0.00-0.20) K/uL Immature Gran # (Auto) 0.07 (0.01-0.20) K/uL Absolute Nucleated RBC 0.02 (0.00-0.12) K/uL Nucleated RBC % (auto) 0.3 % PT 13.8 H (9.0-12.0) Seconds INR 1.3 H (0.9-1.1) APTT 35 H (21-31) Seconds PTT Ratio 1.3 Sodium 131 L (136-145) mmol/L Potassium 5.2 H (3.5-5.1) mmol/L Chloride 101 (98-107) mmol/L Carbon Dioxide 23 (21-32) mmol/L Anion Gap 7 (3-11) BUN 45 H (6-23) mg/dl Creatinine 2.28 H (0.6-1.4) mg/dl Est Cr Clr Drug Dosing Not Reportable eGFR 26.76 BUN/Creatinine Ratio 19.7 (10-20) Glucose 125 H (70-99(Fasting)) mg/dl Calcium 8.8 (8.6-10.3) mg/dl Magnesium 2.2 (1.7-2.4) mg/dl Total Bilirubin 2.9 H (0.2-1.0) mg/dl AST 50 H (13-39) U/L ALT 26 (7-52) U/L Alkaline Phosphatase 103 (34-104) U/L Troponin I High Sens 106.2 H* (0-20) pg/ml C-Reactive Protein 1.20 H (0-0.5) mg/dl B-Natriuretic Peptide 366 H (0-100) pg/ml Total Protein 6.6 (6.0-8.3) gm/dl Albumin 4.1 (3.4-5.0) gm/dl Globulin 2.5 (2.5-4.0) gm/dl Albumin/Globulin Ratio 1.6 (0.9-2) Procalcitonin 0.05 (0-0.5) ng/ml Administered Medications Discontinued Medications Furosemide (Furosemide 40 Mg/4 Ml Vial) 40 mg IV ONE ONE Stop: 09/02/24 18:02 Last Admin: 09/02/24 18:24 Dose: 40 mg Documented By: MILADIS Ceftriaxone Sodium (Rocephin) 2,000 mg in 50 mls @ 100 mls/hr IV NOW STA Stop: 09/02/24 17:40 Last Infusion: 09/02/24 18:13 Dose: Infused Documented By: Admin: 09/02/24 17:40 Dose: 100 mls/hr Documented By: Imaging Data Attestation: I personally reviewed and interpreted this imaging study as follows: My Impression: 1 view chest x-ray was obtained in the emergency department. My interpretation is volume overload with no free air, final report below. Radiologist's Impression: Chest X-Ray 09/02/24 16:09 Clinical History: Dyspnea Technique: A frontal view of the chest was obtained Comparison is made to the prior examination dated 08/07/2024 Findings: There is worsened right lower lobe opacity, concerning for pneumonia. There is diffuse interstitial prominence, concerning for mild pulmonary edema. The heart size is at the upper limit of normal. No definite left pleural effusion or pneumothorax is seen. There is a small right frontal effusion No fracture is noted. No foreign body is seen Impression: 1. Suspected combination of pulmonary edema and right lower lobe pneumonia 2. Small right pleural effusion ACT 112: Positive. There are findings on this exam that require communication between the performing entity and the patient following Patient Test Result Information Act ([place] ACT 112) guidelines. Electronically signed by Mark Hanks 09-02-2024 4:58 PM Pelvis X-Ray 09/02/24 16:10 Clinical History: Fall 2 views of the pelvis are submitted for review. Comparison is made to the prior examination dated 08/07/2024 Findings: There are unchanged old fractures of the left superior and inferior pubic rami. No definite acute fracture is seen. There are bilateral total hip arthroplasties in expected position. There is no definite sign of infection or loosening. No other osseous abnormality is identified. There are no radiopaque foreign bodies. Impression: 1. Bilateral hip replacements 2. Old pubic rami fractures 3. No definite acute fracture Electronically signed by Mark Hanks 09-02-2024 4:56 PM Discharge Plan Visit Data Chief Complaint: Edema To Extremity ED Provider: Cal Salinas Discharge Problem: Pulmonary edema, Pneumonia, Anasarca, Elevated troponin I level Patient Disposition: Being Evaluated by Hospitalist Discharge Instructions Interventions: ED Discharge Assessment Last Done: 09/02/24 20:13
[2024-09-02 16:56] LABS: Basophils # (auto) 0.03 K/uL (0.00-0.20); Basophils % (auto) 0.5 %; Eosinophils # (auto) 0.01 K/uL (0.00-0.50); Eosinophils % (auto) 0.2 %; Hematocrit (blood only) 32.2 % (42.0-52.0); Immature Granulocytes # (auto) 0.07 K/uL (0.01-0.20); Immature Granulocytes % (auto) 1.2 %; Lymphocytes % (auto) 10.3 %; Mean Corpuscular Hemoglobin 34.7 pg (25.0-34.0); Mean Corpuscular Hgb Conc 34.2 g/dL (32.0-36.0); Mean Corpuscular Volume 101.6 fL (80.0-100.0); Mean Platelet Volume 12.2 fL (9.4-12.4); Monocytes # (auto) 0.71 K/uL (0.11-0.59); Monocytes % (auto) 12.1 %; Neutrophils # (auto) 4.43 K/uL (1.40-6.50); Neutrophils % (auto) 75.7 %; Nucleated RBC # (auto) 0.02 K/uL (0.00-0.12); Nucleated RBC % (auto) 0.3 %; Platelet Count 86 K/uL (130-400); RDW Coefficient of Variation 18.8 % (11.5-14.5); Red Blood Count 3.17 M/uL (4.70-6.10); White Blood Count 5.85 K/ul (4.8-10.8)
--- NOTE | 2024-09-02 16:57 | XRay Report ---
Clinical History: Fall 2 views of the pelvis are submitted for review. Comparison is made to the prior examination dated 08/07/2024 Findings: There are unchanged old fractures of the left superior and inferior pubic rami. No definite acute fracture is seen. There are bilateral total hip arthroplasties in expected position. There is no definite sign of infection or loosening. No other osseous abnormality is identified. There are no radiopaque foreign bodies. Impression: 1. Bilateral hip replacements 2. Old pubic rami fractures 3. No definite acute fracture Electronically signed by Mark Hanks 09-02-2024 4:56 PM
--- NOTE | 2024-09-02 16:58 | XRay Report ---
Clinical History: Dyspnea Technique: A frontal view of the chest was obtained Comparison is made to the prior examination dated 08/07/2024 Findings: There is worsened right lower lobe opacity, concerning for pneumonia. There is diffuse interstitial prominence, concerning for mild pulmonary edema. The heart size is at the upper limit of normal. No definite left pleural effusion or pneumothorax is seen. There is a small right frontal effusion No fracture is noted. No foreign body is seen Impression: 1. Suspected combination of pulmonary edema and right lower lobe pneumonia 2. Small right pleural effusion ACT 112: Positive. There are findings on this exam that require communication between the performing entity and the patient following Patient Test Result Information Act ([place] ACT 112) guidelines. Electronically signed by Mark Hanks 09-02-2024 4:58 PM
[2024-09-02 17:09] LABS: Anion Gap 7 (3-11); Blood Urea Nitrogen 45 mg/dl (6-23); Carbon Dioxide 23 mmol/L (21-32); Chloride 101 mmol/L (98-107); Potassium 5.2 mmol/L (3.5-5.1); Sodium 131 mmol/L (136-145)
[2024-09-02 17:10] LABS: Alanine Aminotransferase 26 U/L (7-52); Albumin Globulin Ratio 1.6 (0.9-2); Albumin Level 4.1 gm/dl (3.4-5.0); Alkaline Phosphatase 103 U/L (34-104); Aspartate Aminotransferase 50 U/L (13-39); BUN Creatinine Ratio 19.7 (10-20); Bilirubin,Total 2.9 mg/dl (0.2-1.0); Calcium 8.8 mg/dl (8.6-10.3); Globulin 2.5 gm/dl (2.5-4.0); Glucose 125 mg/dl (70-99(Fasting)); Magnesium 2.2 mg/dl (1.7-2.4); Total Protein 6.6 gm/dl (6.0-8.3)
[2024-09-02 17:19] LABS: INR 1.3 (0.9-1.1); Partial Thromboplastin Ratio 1.3; Partial Thromboplastin Time 35 Seconds (21-31); Prothrombin Time 13.8 Seconds (9.0-12.0)
[2024-09-02 17:22] LABS: Troponin I High Sensitivity 106.2 pg/ml (0-20)
[2024-09-02] MEDS: cefTRIAXone SODIUM 2,000 MG/50 ML BAG IV STA (17:40)
[2024-09-02] MEDS: FUROSEMIDE 40 MG/4 ML VIAL IV ONE (18:24)
--- NOTE | 2024-09-02 19:42 | History & Physical Report ---
Date of Service September 02, 2024 Assessment & Plan (1) Heart failure with improved ejection fraction (HFimpEF): (2) CLL (chronic lymphocytic leukemia): (3) Type 2 diabetes mellitus: (4) Chronic kidney disease, stage III (moderate): Plan 89-year-old male recently discharged from our facility in July after episode of syncope who presents with what appears to be heart failure preserved ejection fraction with significant lower extreme edema chest x-ray changes and scrotal edema. During his previous hospital stay the patient had his anticoagulation discontinued by cardiology due to increasing falls and bruises. It is rate controlled metoprolol was decreased from 100 mg a day to 25 mg twice daily. Despite significant lower extremity edema and mild changes on his chest x-ray the patient does not have any pulmonary symptoms. His right heart echocardiogram from July 2024 showed significant right heart dysfunction. #Heart failure preserved ejection fraction. This appears to be all the right heart failure patiently treated with parenteral Lasix therapy hopefully this minda l also help his hyperkalemia. He does have some mild APPLE on CKD 3 and will follow his response to diuretics.. With regard to his atrial fibrillation and course he is in a junctional rhythm his metoprolol was continued.. My patient has mild hyponatremia we will see if this responds to diuretic therapy as he is fluid overloaded at this time. #Increased troponin therapy likely related to his fluid overload status. Will trend his troponins I do not believe he is ACS there is no changes on EKG suggestive of the same #Abnormal chest x-ray. Initial concerns for pneumonia were unfounded by clin ical exam and review and lack of elevation of his white count. Antibiotics will not be continued although blood cultures were drawn in the emergency department. #Diabetes patient has a history of diabetes but is not typically on any medications at this time #Hypothyroidism patient is continued on levothyroxine therapy DVT prevention will be heparin therapy renal dose adjusted, patient has a hi story of CLL History of Present Illness Primary Care Provider: Raffi Alva MD 89-year-old male sent in from his primary care office with scrotal edema and swelling. Patient most recently has had a fall and has had some bruising about his arms and legs. He is mostly complaining about the scrotal swelling. Patient has 1-2+ lower extremity edema. Chest x-ray is abnormal which looks to be like a possible right lower lobe infiltrate with loss of the right diaphragm however the patient has absolutely no infectious symptoms at all and does not feel any fevers or chills or having cough productive of sputum. Does however endorse a weight gain of almost 20 pounds and feels that he has increasing lower extremity swelling. An echocardiogram from July shows the patient have normal systolic function but significantly impaired right heart function In the emergency department the patient was covered with ceftriaxone and given 1 dose of Lasix 40. Allergies Allergy/AdvReac Type Severity Reaction Status Date / Time Sulfa (Sulfonamide Allergy Intermediate HIVES Verified 09/02/24 14:49 Antibiotics) Home Medications Medication Instructions Recorded Confirmed Type mecobalamin (vitamin B12) 5,000 2,500 mcg (1/2 x 5,000 mcg) PO Q 03/29/23 09/02/24 Rx mcg disintegrating tablet OTHER DAY #1 tab lancets 33 gauge ([facility] #[facility] ea 08/18/23 09/02/24 Rx Plus Lancet) [id number] 250 mg-dha 90 1 cap PO DAILY 09/11/23 09/02/24 History mg-epa 160 [id number]-[id number] capsule (Ocuvite Adult 50 Plus) polyethylene glycol 3350 17 17 g PO DAILY PRN constipation 12/20/23 09/02/24 Rx gram/dose oral powder (Miralax) #238 grams blood sugar diagnostic (OneTouch #100 ea 12/29/23 09/02/24 Rx Verio test strips) furosemide 40 mg tablet (Lasix) 40 mg PO DAILY PRN weight gain, 01/05/24 09/02/24 Rx SOB, edema #30 tabs atorvastatin 10 mg tablet 10 mg PO QAM #90 tabs 04/11/24 09/02/24 Rx levothyroxine 75 mcg tablet 75 mcg PO DAILY #90 tabs 06/14/24 09/02/24 Rx clonazepam 0.5 mg tablet 0.5 mg PO HS PRN Insomnia #20 tabs 07/02/24 09/02/24 Rx docusate sodium 100 mg capsule 200 mg (2 x 100 mg) PO DAILY #90 07/26/24 09/02/24 Rx (Colace) caps metoprolol tartrate 25 mg tablet 25 mg PO Q12 30 days #60 tabs 08/12/24 09/02/24 Rx buspirone 5 mg tablet 5 mg PO HS PRN sleep #30 tabs 08/20/24 09/02/24 Rx Past Med/Surg History Problem List (Updated 09/02/24 @ 19:34 by Nathanael Dye MD) Heart failure with improved ejection fraction (HFimpEF) Recurrent falls Constipation Hyperkalemia Hyponatremia Primary hypothyroidism Pleural effusion (Acute) Syncope (Acute) Bradycardia (Acute) Contusion of head (Acute) Elevated troponin (Acute) APPLE (acute kidney injury) (Acute) Hypothermia (Acute) Ambulatory dysfunction Fall Chronic constipation Atrial flutter hx of Cholelithiasis Tricuspid regurgitation Gait disturbance (Chronic) Hypothyroidism Paroxysmal A-fib CLL (chronic lymphocytic leukemia) Thrombocytopenia Vitamin D deficiency Vitamin B12 deficiency Hemorrhoids Health care maintenance Dyslipidemia (Chronic) Idiopathic polyneuropathy Type 2 diabetes mellitus (Chronic) Anemia (Chronic) Irritable bowel syndrome (Chronic) Lower back pain (Chronic) Osteoarthritis (Chronic) Insomnia (Chronic) H/O left mastectomy Hypertension Chronic kidney disease, stage III (moderate) follows with Dr. Abrams Medical History Joint pain in fingers of left hand Hyperkalemia Hip hematoma, left Normocytic anemia Hyponatremia Sleep disturbances CKD (chronic kidney disease) Right heart failure Cellulitis, leg Hematoma of left lower leg Fall at home Anasarca Hyperbilirubinemia Localized swelling of both lower legs Elevated LFTs Non-ST elevation FL (NSTEMI) History of cardioversion 07/18/23, [facility] Anticoagulant long-term use eliquis History of anesthesia reaction reports constipation, sleep disturbances and vission changes x 1 year following removal of loose body LLE 2000 History of gout Pancreatic cyst Constipation IBS (irritable bowel syndrome) DM type 2 (diabetes mellitus, type 2) diet controlled, no meds HLD (hyperlipidemia) Leukemia, chronic lymphoid, in remission pt denies per heme records- "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 Monae--on BB and eliquis Benign essential hypertension Surgical History History of lymph node excision 01/2023 off right chest History of surgery removal loose body x 2 LLE History of cataract surgery History of left hip replacement History of right hip replacement History of right mastectomy History of colonoscopy Family History Other No family history of adverse response to anesthesia Denies family history of Ovarian cancer Prostate cancer Breast cancer Lung cancer Colorectal cancer Social History Smoking Status: Never smoker Second Hand Exposure: No; Do You Dip or Chew Tobacco: No; Hx Alcohol Use: No Hx Substance Use: No Preferred Language: Uzbek Communication Ability: Effective Visual Impairment: No Limitations Hearing Ability: Normal Surface Plate Finisher Required: No Beliefs That Will Affect Care: None marital status: / Current Living Situation: Alone 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 How many Children do You have Comment: one son Feels Safe at Home: Yes Diet: diabetic caffeine: No Physical Activity Frequency: Does not Exercise Seatbelt Use: always Sunscreen Use: No Do you think of yourself as: straight/heterosexual Gender Identity: Male Assistive Devices: Cane and Walker Review of Systems Review of Systems: Mild distress and moderate fatigue no headache, no visual changes no speech or swallowing issues no chest pain, pressure or palpitations Increased shortness of breath no cough or sputum production no abdominal pain, nausea or vomiting, recent resolution of constipation with cathartic agents no dysuria, hematuria or frequency does have some difficulty urinating after the Lasix but does not wish to have a catheter no focal joint pain has significant bilateral lower extremity swelling 1-2+ no back pain, CVA tenderness or radicular pain Has bruises about his arms and legs from falling at home no focal signs of weakness or numbness or altered sensation no complaints of anxiety or depression.. Physical Exam Physical Exam: The patient appeared chronically ill with decompensated heart failure Vital signs as documented. Head exam is normocephalic atraumatic Neck is with 2+ JVD, thyromegaly, or carotid bruits. Lungs are diminished at the right base crackles just above bilaterally Cardiac exam, Rhythm is regular.. EKG shows accelerated junctional rhythm. No murmurs, rubs or gallops. Abdominal exam reveals normal bowel sounds, soft non tender, no masses Extremities are 1-2+ edema bilaterally, scrotum is mildly swollen Neurologic exam is alert and oriented, no focal loss of strength or sensation Skin is without bruises or rashes Psychologically is without concerns for anxiety or depression.. Results & Data Results & Data Vital Signs (Past 12 Hours) Vital Signs Temp Pulse Pulse Resp BP BP Pulse Ox 09/02/24 19:00 72 17 127/92 96 09/02/24 18:00 73 12 130/91 96 09/02/24 17:30 73 12 121/87 100 09/02/24 17:00 73 20 121/91 99 09/02/24 16:48 73 09/02/24 16:09 09/02/24 15:50 98.4 F 76 19 127/86 99 O2 Del Method 09/02/24 19:00 Room Air 09/02/24 18:00 Room Air 09/02/24 17:30 Room Air 09/02/24 17:00 09/02/24 16:48 09/02/24 16:09 Room Air 09/02/24 15:50 Room Air Laboratory Results Reviewed CBC reviewed chemistry mild hyponatremia mild hyperkalemia reviewed troponin 106 EKG shows what looks to be accelerated junctional rhythm but the QRS is narrow complex. Chest x-ray has findings consistent with the loss of the right diaphragmatic silhouette Code Status & VTE Plan VTE Prophylaxis Plan VTE Prophylaxis will be ordered: Yes PG Care Time/CCT Total # of Minutes Spent Total Time Spent with Patient: Total time spent is greater than 50% in coordination of care (as documented) at patient's floor/unit and/or counseling patient: Coding Level of Care Code 59817 INT INP/OBS CARE 3/75MIN Diagnoses Heart failure with improved ejection fraction (HFimpEF) I50.32 CLL (chronic lymphocytic leukemia) C91.10 Type 2 diabetes mellitus E11.9 Chronic kidney disease, stage III (moderate) N18.30
[2024-09-02] MEDS ORDERED: NITROGLYCERIN SL 0.4 MG/TAB TAB SL PRN (20:13)
[2024-09-02] MEDS ORDERED: clonazePAM 0.5 MG TAB PO PRN (20:13)
[2024-09-02] MEDS ORDERED: ONDANSETRON INJ 2 MG/ML 2 ML VIAL IV PRN (20:13)
[2024-09-02] MEDS ORDERED: GLUCOSE 40% GEL 15 GM TUBE PO PRN (20:13)
[2024-09-02] MEDS ORDERED: GLUCAGON FOR INJ 1 MG VIAL SQ PRN (20:13)
[2024-09-02] MEDS ORDERED: busPIRone 5 MG TAB PO PRN (20:13)
[2024-09-02] MEDS ORDERED: DEXTROSE 50% 50 ML SYRINGE IV PRN (20:13)
[2024-09-02] MEDS ORDERED: GLUCOSE 10 TAB/TUBE PO PRN (20:13)
[2024-09-02 20:18] LABS: Appearance Urine Clear (Clear); Bilirubin Urine Negative (Negative); Blood Urine 1+ (Negative); Color Urine Yellow; Glucose Urine UA Negative (Negative); Ketones Urine Negative (Negative); Leukocyte Esterase Urine Negative (Negative); Nitrite Urine Negative (Negative); Protein Urine Trace (Negative); Urobilinogen Urine Negative (Negative); pH Urine 5.5 (4.5-7.5)
[2024-09-02 20:20] LABS: Troponin I High Sensitivity 122.3 pg/ml (0-20)
[2024-09-02 21:12] LABS: Thyroid Stimulating Hormone 5.085 uIu/ml (0.300-4.500)
[2024-09-02 21:32] LABS: Bacteria Urine None Seen (None Seen); Epithelial Cell Urine 0-2 /hpf (0-2); Hyaline Casts Urine P /lpf (None Presnt); RBC Urine 0-2 /hpf (0-2); WBC Urine 0-5 /hpf (0-5)
[2024-09-02] MEDS: INSULIN ASPART PER UNIT CHARGE SC SCH (22:01)
[2024-09-02] MEDS: METOPROLOL TARTRATE 25 MG TAB PO SCH (22:07)
[2024-09-02] MEDS: HEPARIN SOD 5,000 UNIT/0.5 ML VIAL SQ SCH (22:08)
[2024-09-03 04:53] LABS: Hematocrit (blood only) 30.2 % (42.0-52.0); Hemoglobin 10.5 g/dl (14.0-18.0); Mean Corpuscular Hemoglobin 34.8 pg (25.0-34.0); Mean Corpuscular Hgb Conc 34.8 g/dL (32.0-36.0); Nucleated RBC # (auto) 0.04 K/uL (0.00-0.12); Nucleated RBC % (auto) 0.9 %; Platelet Count 76 K/uL (130-400); RDW Coefficient of Variation 18.6 % (11.5-14.5); Red Blood Count 3.02 M/uL (4.70-6.10); White Blood Count 4.55 K/ul (4.8-10.8)
[2024-09-03 04:56] LABS: BUN Creatinine Ratio 21.2 (10-20); Calcium 8.7 mg/dl (8.6-10.3); Creatinine Clr Calc Pharmacy 25.3 ml/min; Magnesium 2.2 mg/dl (1.7-2.4); Potassium 4.5 mmol/L (3.5-5.1)
[2024-09-03] MEDS: LEVOTHYROXINE SODIUM 75 MCG TABLET PO SCH (05:34)
[2024-09-03] MEDS: FUROSEMIDE 40 MG/4 ML VIAL IV SCH ×2 (05:34→21:18)
[2024-09-03 07:31] LABS: Estimated Average Glucose 128 mg/dl; Hemoglobin A1C 6.1 % (4.5-5.6)
[2024-09-03] MEDS: ATORVASTATIN 10 MG TAB PO SCH (08:55)
[2024-09-03] MEDS: DOCUSATE SODIUM 100 MG CAP PO SCH (08:55)
[2024-09-03] MEDS: CYANOCOBALAMIN (B-12) 2,500 MCG TABLET PO SCH (08:55)
--- NOTE | 2024-09-03 11:38 | Electrocardiogram Report ---
Test Reason : Blood Pressure : */* mmHG Vent. Rate : 73 BPM Atrial Rate : * BPM P-R Int : * ms QRS Dur : 112 ms QT Int : 422 ms P-R-T Axes : * 60 183 degrees QTcB Int : 464 ms Sinus rhythm, Low voltage QRS Nonspecific T wave abnormality Abnormal ECG When compared with ECG of 11-Aug-2024 09:28, Minimal criteria for Anterior infarct are no longer Present Nonspecific T wave abnormality no longer evident in Anterior leads Confirmed by Cali Cantu ([id number]) on 09/03/2024 11:38:09 AM Referred By: REFERRED SELF Confirmed By: Cali Cantu
--- NOTE | 2024-09-03 11:45 | Ultrasound Report ---
BILATERAL LOWER EXTREMITY VENOUS DOPPLER HISTORY: Acute pain and swelling of the lower legs eval dvt COMPARISON STUDY: None. FINDINGS: Study is limited secondary to subcutaneous edema. There is normal compressibility, flow, an d augmentation within the bilateral lower extremity deep venous systems. IMPRESSION: Subcutaneous edema without DVT identified within the right or left lower extremity. ACT 112: Negative or not required by law. Electronically signed by: Jose Garza M.D. 09/03/2024 11:44 AM
[2024-09-03] MEDS: FUROSEMIDE 40 MG/4 ML VIAL IV ONE (12:13)
--- NOTE | 2024-09-03 16:11 | Hospitalist Progress Note ---
Date of Service September 03, 2024 Assessment & Plan (1) Heart failure with improved ejection fraction (HFimpEF): (2) CLL (chronic lymphocytic leukemia): (3) Type 2 diabetes mellitus: (4) Chronic kidney disease, stage III (moderate): Plan 89-year-old male recently discharged from our facility in July after episode of syncope who presents with what appears to be heart failure preserved ejection fraction with significant lower extreme edema chest x-ray changes and scrotal edema. During his previous hospital stay the patient had his anticoagulation discontinued by cardiology due to increasing falls and bruises. currently negative for DVT B/L LE currently sinus rhythm, but history of afib, metoprolol was decreased from 100 mg a day to 25 mg twice daily. Despite significant lower extremity edema and mild changes on his chest x-ray the patient does not have any pulmonary symptoms. His right heart echocardiogram from July 2024 showed significant right heart dysfunction. #Heart failure preserved ejection fraction. This appears to be all the right heart failure patiently treated with parenteral Lasix therapy hopefully this will also help his hyperkalemia. He does have some mild APPLE on CKD 3 and will follow his response to diuretics.. With regard to his atrial fibrillation and course he is in a junctional rhythm his metoprolol was continued.. patient has mild hyponatremia we will see if this responds to diuretic therapy as he is fluid overloaded at this time. #Increased troponin therapy likely related to his fluid overload status. no significant trend, not ACS there is no changes on EKG suggestive of the same #Abnormal chest x-ray. Initial concerns for pneumonia were unfounded by clinical exam and review and lack of elevation of his white count. Antibiotics will not be continued although blood cultures were drawn in the emergency department. #Diabetes patient has a history of diabetes but is not typically on any medications at this time #Hypothyroidism patient is continued on levothyroxine therapy, tsh slightly high, will check T4 DVT prevention will be heparin therapy renal dose adjusted, patient has a history of CLL Admission and Anticipated Discharge Date Admission Date: September 02, 2024 Subjective pt only with mild improvement, still with significant swelling to LE, doppler negative, bruising to legs from falling scrotum improved incontinent of urine Physical Exam Physical Exam: 2+ B/L LE edema, scrotal edema, bruising to legs cardiac is regular, lungs are diminished at bases but clear otherwise Results & Data Results & Data Vital Signs (Past 12 Hours) Vital Signs Pulse Pulse Resp BP Pulse Ox O2 Del Method 09/03/24 12:10 75 19 104/71 99 Room Air 09/03/24 11:00 74 21 113/75 09/03/24 07:05 75 09/03/24 07:00 75 12 123/89 98 Room Air 09/03/24 06:21 75 18 119/86 94 Room Air Laboratory Results reviewed cbc reviewed chemistry PG Care Time/CCT Total # of Minutes Spent Total Time Spent with Patient: Total time spent is greater than 50% in coordination of care (as documented) at patient's floor/unit and/or counseling patient: Coding Level of Care Code 40819 SUB INP/OBS CARE 3/50MIN Diagnoses Heart failure with improved ejection fraction (HFimpEF) I50.32 CLL (chronic lymphocytic leukemia) C91.10 Type 2 diabetes mellitus E11.9 Chronic kidney disease, stage III (moderate) N18.30
[2024-09-04 08:25] LABS: Hematocrit (blood only) 31.5 % (42.0-52.0); Hemoglobin 10.9 g/dl (14.0-18.0); Mean Corpuscular Hemoglobin 34.5 pg (25.0-34.0); Mean Corpuscular Hgb Conc 34.6 g/dL (32.0-36.0); Mean Corpuscular Volume 99.7 fL (80.0-100.0); Mean Platelet Volume 11.5 fL (9.4-12.4); Nucleated RBC # (auto) 0.02 K/uL (0.00-0.12); Nucleated RBC % (auto) 0.5 %; Platelet Count 68 K/uL (130-400); RDW Coefficient of Variation 18.6 % (11.5-14.5); RDW Standard Deviation 68.3 fL (36.4-46.3); Red Blood Count 3.16 M/uL (4.70-6.10); White Blood Count 4.39 K/ul (4.8-10.8)
[2024-09-04] MEDS: FUROSEMIDE 40 MG/4 ML VIAL IV SCH (08:38)
[2024-09-04 08:45] LABS: Calcium 8.7 mg/dl (8.6-10.3)
[2024-09-04 08:46] LABS: Calcium 8.7 mg/dl (8.6-10.3); Potassium 3.9 mmol/L (3.5-5.1)
[2024-09-04 08:49] LABS: Troponin I High Sensitivity 114.9 pg/ml (0-20)
[2024-09-04 08:51] LABS: BUN Creatinine Ratio 23.3 (10-20); BUN Creatinine Ratio 23.6 (10-20); Creatinine Clr Calc Pharmacy 26.7 ml/min; Creatinine Clr Calc Pharmacy 27.1 ml/min
[2024-09-04 08:59] LABS: T4 Free Thyroxine 1.22 ng/dl (0.61-1.60)
--- NOTE | 2024-09-04 15:57 | Hospitalist Progress Note ---
Date of Service September 04, 2024 Assessment & Plan (1) Heart failure with improved ejection fraction (HFimpEF): (2) CLL (chronic lymphocytic leukemia): (3) Type 2 diabetes mellitus: (4) Chronic kidney disease, stage III (moderate): Plan 89-year-old male with PMH of CHF, CKD, falling episode, recently discharged from our facility in July for syncope event; and has his blood thinner held given frequent fall on this admission,present with leg edema, scrotal edema and concern for CHF exacerbation, and noted to has right heart dysfunction metoprolol reduce from 100mg daily to 25 BID CHF exacerbation hypotension scrotal edema troponin elevation hx of CLL chronic kidney disease hyponatremia fall episodes A-fib of AC (given falling episode) he's received lasix 80mg BID but has soft blood pressure overall plan to monday hold lasix monitor for low BP if he's spike a fever, will then repeat CXR #Heart failure preserved ejection fraction. s/p IV lasix BID but has soft blood pressure hold lasix today; mobnitor for BP hyponatremia-monitor for now, can has ensure supplement scrotal edema troponin elevation-demand ischemia no chest pain #Abnormal chest x-ray. #Diabetes- off med at this point #Hypothyroidism-synthyroid DVT prevention will be heparin therapy renal dose adjusted, patient has a history of CLL Admission and Anticipated Discharge Date Admission Date: September 02, 2024 Subjective He was having hypotension and we hold his Lasix no shortness of breath no dizziness He does not want to be placed to a long-term, Continue to monitor for scrotal edema Review of Systems Review of Systems: Constitutional: No Weight Change, No Fever, No Chills, No Night Sweats, No Fatigue, No Malaise ENT/Mouth: No Hearing Changes, No Ear Pain, No Nasal Congestion, No Sinus Pain, No Hoarseness, No sore throat, No Rhinorrhea, No Swallowing Difficulty Eyes: No Eye Pain, No Swelling, No Redness, No Foreign Body, No Discharge, No Vision Changes Cardiovascular: No Chest Pain, No SOB, No PND, N Gastrointestinal: No Nausea, No Vomiting, No Diarrhea, No Constipation, N Genitourinary: scrotal edema Neuro: No Weakness, No Numbness, Endocrine: No Polyuria, No Polydipsia, No Temperature Intolerance Physical Exam Physical Exam: VITALS: Reviewed. WEIGHT/BMI reviewed. General: frail; chronically ill appearing Head: NC/AT; CV: RRR, no m/r/g. LUNGS: CTAB, no w/r/c. ABD: Soft, NT/ND, NBS, no masses or organomegaly. : scrotal edeme MSK: edema NEURO: Ambulating with no limitations. Normal muscle strength and tone. No focal deficits. Results & Data Results & Data Vital Signs (Past 12 Hours) Vital Signs Pulse Pulse Resp BP BP Pulse Ox O2 Del Method 09/04/24 15:15 76 16 105/71 98 Room Air 09/04/24 13:05 66 09/04/24 11:50 Room Air 09/04/24 11:31 56 L 16 90/60 L 94 Room Air 09/04/24 07:37 74 18 118/76 98 Room Air Laboratory Results Abnormal lab results 09/03/24 09/03/24 09/03/24 Range/Units 19:58 20:31 20:33 WBC (4.8-10.8) K/ul RBC (4.70-6.10) M/uL Hgb (14.0-18.0) g/dl Hct (42.0-52.0) % MCH (25.0-34.0) pg RDW Std Deviation (36.4-46.3) fL RDW Coeff of Gilbert (11.5-14.5) % Plt Count (130-400) K/uL BUN (6-23) mg/dl Creatinine (0.6-1.4) mg/dl BUN/Creatinine Ratio (10-20) POC Glucose > 600 H* 154 H (70-99) mg/dl Troponin I High Sens 97.6 H* D (0-20) pg/ml 09/04/24 09/04/24 09/04/24 Range/Units 07:59 07:59 07:59 WBC 4.39 L (4.8-10.8) K/ul RBC 3.16 L (4.70-6.10) M/uL Hgb 10.9 L (14.0-18.0) g/dl Hct 31.5 L (42.0-52.0) % MCH 34.5 H (25.0-34.0) pg RDW Std Deviation 68.3 H (36.4-46.3) fL RDW Coeff of Gilbert 18.6 H (11.5-14.5) % Plt Count 68 L (130-400) K/uL BUN 48 H 48 H (6-23) mg/dl Creatinine 2.06 H 2.03 H (0.6-1.4) mg/dl BUN/Creatinine Ratio 23.3 H (10-20) POC Glucose (70-99) mg/dl Troponin I High Sens (0-20) pg/ml 09/04/24 09/04/24 Range/Units 07:59 11:54 WBC (4.8-10.8) K/ul RBC (4.70-6.10) M/uL Hgb (14.0-18.0) g/dl Hct (42.0-52.0) % MCH (25.0-34.0) pg RDW Std Deviation (36.4-46.3) fL RDW Coeff of Gilbert (11.5-14.5) % Plt Count (130-400) K/uL BUN (6-23) mg/dl Creatinine (0.6-1.4) mg/dl BUN/Creatinine Ratio 23.6 H (10-20) POC Glucose 190 H (70-99) mg/dl Troponin I High Sens 114.9 H* (0-20) pg/ml Current Inpatient Medications Atorvastatin Calcium (Atorvastatin 10 Mg Tab) 10 mg PO QAM NELLI Stop: 10/03/24 08:59 Last Admin: 09/04/24 08:38 Dose: 10 mg Buspirone HCl (Buspirone 5 Mg Tab) 5 mg PO HS PRN PRN Reason: sleep Stop: 10/02/24 20:12 Clonazepam (Clonazepam 0.5 Mg Tab) 0.5 mg PO HS PRN PRN Reason: Insomnia Stop: 10/02/24 20:12 Cyanocobalamin (Cyanocobalamin (B-12) 2,500 Mcg Tablet) 2,500 mcg PO Q2D@0900 [facility] Stop: 10/03/24 08:59 Last Admin: 09/03/24 08:55 Dose: 2,500 mcg Dextrose (Dextrose 50% 50 Ml Syringe) 25 - 50 ml IV UD PRN; Protocol PRN Reason: Hypoglycemia Protocol Stop: 10/02/24 20:12 Docusate Sodium (Docusate Sodium 100 Mg Cap) 200 mg PO DAILY NELLI Stop: 10/03/24 08:59 Last Admin: 09/04/24 08:37 Dose: 200 mg Furosemide (Furosemide 40 Mg/4 Ml Vial) 40 mg IV BID NELLI Stop: 10/04/24 08:59 Last Admin: 09/04/24 08:38 Dose: 40 mg Glucagon (Glucagon For Inj 1 Mg Vial) 1 mg SQ UD PRN; Protocol PRN Reason: Hypoglycemia Protocol Stop: 10/02/24 20:12 Glucose (Glucose 40% Gel 15 Gm Tube) 15 - 30 gm PO UD PRN; Protocol PRN Reason: Hypoglycemia Protocol Stop: 10/02/24 20:12 Glucose (Glucose 10 Tab/Tube) 4 - 8 tab PO UD PRN; Protocol PRN Reason: Hypoglycemia Protocol Stop: 10/02/24 20:12 Heparin Sodium (Porcine) (Heparin Sod 5,000 Unit/0.5 Ml Vial) 5,000 units SQ Q12 NELLI Stop: 10/02/24 20:59 Last Admin: 09/04/24 08:38 Dose: 5,000 units Insulin Aspart (Insulin Aspart Per Unit Charge) 0 units SC ACHS NELLI Stop: 10/02/24 20:59 Last Admin: 09/04/24 13:07 Dose: 2 units Levothyroxine Sodium (Levothyroxine Sodium 75 Mcg Tablet) 75 mcg PO DAILYBB NELLI Stop: 10/03/24 06:29 Last Admin: 09/04/24 05:39 Dose: 75 mcg Metoprolol Tartrate (Metoprolol Tartrate 25 Mg Tab) 25 mg PO Q12 NELLI Stop: 10/02/24 20:59 Last Admin: 09/04/24 08:38 Dose: 25 mg Miscellaneous (Carbohydrates For Hypoglycemia ) 15 - 30 gm PO UD PRN PRN Reason: Hypoglycemia Protocol Stop: 10/02/24 20:12 Nitroglycerin (Nitroglycerin Sl 0.4 Mg/Tab Tab) 0.4 mg SL Q5M PRN PRN Reason: Chest Pain Stop: 10/02/24 20:12 Ondansetron HCl (Ondansetron Inj 2 Mg/Ml 2 Ml Vial) 4 mg IV Q6H PRN PRN Reason: Nausea Stop: 10/02/24 20:12 Laboratory Results WBC 4.39 K/ul (4.8-10.8) L 09/04/24 07:59 RBC 3.16 M/uL (4.70-6.10) L 09/04/24 07:59 Hgb 10.9 g/dl (14.0-18.0) L 09/04/24 07:59 Hct 31.5 % (42.0-52.0) L 09/04/24 07:59 MCV 99.7 fL (80.0-100.0) 09/04/24 07:59 MCH 34.5 pg (25.0-34.0) H 09/04/24 07:59 MCHC 34.6 g/dL (32.0-36.0) 09/04/24 07:59 RDW Std Deviation 68.3 fL (36.4-46.3) H 09/04/24 07:59 RDW Coeff of Gilbert 18.6 % (11.5-14.5) H 09/04/24 07:59 Plt Count 68 K/uL (130-400) L 09/04/24 07:59 MPV 11.5 fL (9.4-12.4) 09/04/24 07:59 Immature Gran % (Auto) 1.2 % 09/02/24 16:24 Neut % (Auto) 75.7 % 09/02/24 16:24 Lymph % (Auto) 10.3 % 09/02/24 16:24 [place] % (Auto) 12.1 % 09/02/24 16:24 Eos % (Auto) 0.2 % 09/02/24 16:24 Baso % (Auto) 0.5 % 09/02/24 16:24 Neut # (Auto) 4.43 K/uL (1.40-6.50) 09/02/24 16:24 Lymph # (Auto) 0.60 K/uL (1.20-3.40) L 09/02/24 16:24 [place] # (Auto) 0.71 K/uL (0.11-0.59) H 09/02/24 16:24 Eos # (Auto) 0.01 K/uL (0.00-0.50) 09/02/24 16:24 Baso # (Auto) 0.03 K/uL (0.00-0.20) 09/02/24 16:24 Immature Gran # (Auto) 0.07 K/uL (0.01-0.20) 09/02/24 16:24 Absolute Nucleated RBC 0.02 K/uL (0.00-0.12) 09/04/24 07:59 Nucleated RBC % (auto) 0.5 % 09/04/24 07:59 PT 13.8 Seconds (9.0-12.0) H 09/02/24 16:24 INR 1.3 (0.9-1.1) H 09/02/24 16:24 APTT 35 Seconds (21-31) H 09/02/24 16:24 PTT Ratio 1.3 09/02/24 16:24 Sodium 136 mmol/L (136-145) 09/04/24 07:59 Sodium 136 mmol/L (136-145) 09/04/24 07:59 Potassium 3.9 mmol/L (3.5-5.1) 09/04/24 07:59 Potassium 4.0 mmol/L (3.5-5.1) 09/04/24 07:59 Chloride 101 mmol/L (98-107) 09/04/24 07:59 Chloride 101 mmol/L (98-107) 09/04/24 07:59 Carbon Dioxide 28 mmol/L (21-32) 09/04/24 07:59 Carbon Dioxide 28 mmol/L (21-32) 09/04/24 07:59 Anion Gap 7 (3-11) 09/04/24 07:59 Anion Gap 7 (3-11) 09/04/24 07:59 BUN 48 mg/dl (6-23) H 09/04/24 07:59 BUN 48 mg/dl (6-23) H 09/04/24 07:59 Creatinine 2.03 mg/dl (0.6-1.4) H 09/04/24 07:59 Creatinine 2.06 mg/dl (0.6-1.4) H 09/04/24 07:59 Est Cr Clr Drug Dosing 26.7 ml/min 09/04/24 07:59 Est Cr Clr Drug Dosing 27.1 ml/min 09/04/24 07:59 eGFR 30.22 09/04/24 07:59 eGFR 30.76 09/04/24 07:59 BUN/Creatinine Ratio 23.3 (10-20) H 09/04/24 07:59 BUN/Creatinine Ratio 23.6 (10-20) H 09/04/24 07:59 Glucose 93 mg/dl (70-99(Fasting)) 09/04/24 07:59 Glucose 93 mg/dl (70-99(Fasting)) 09/04/24 07:59 POC Glucose 190 mg/dl (70-99) H 09/04/24 11:54 Estimat Average Glucose 128 mg/dl 09/03/24 04:00 Hemoglobin A1c 6.1 % (4.5-5.6) H 09/03/24 04:00 Calcium 8.7 mg/dl (8.6-10.3) 09/04/24 07:59 Calcium 8.7 mg/dl (8.6-10.3) 09/04/24 07:59 Magnesium 2.0 mg/dl (1.7-2.4) 09/04/24 07:59 Total Bilirubin 2.9 mg/dl (0.2-1.0) H 09/02/24 16:24 AST 50 U/L (13-39) H 09/02/24 16:24 ALT 26 U/L (7-52) 09/02/24 16:24 Alkaline Phosphatase 103 U/L (34-104) 09/02/24 16:24 Troponin I High Sens 114.9 pg/ml (0-20) H* 09/04/24 07:59 C-Reactive Protein 1.20 mg/dl (0-0.5) H 09/02/24 16:24 B-Natriuretic Peptide 366 pg/ml (0-100) H 09/02/24 16:24 Total Protein 6.6 gm/dl (6.0-8.3) 09/02/24 16:24 Albumin 4.1 gm/dl (3.4-5.0) 09/02/24 16:24 Globulin 2.5 gm/dl (2.5-4.0) 09/02/24 16:24 Albumin/Globulin Ratio 1.6 (0.9-2) 09/02/24 16:24 Procalcitonin 0.05 ng/ml (0-0.5) 09/02/24 17:29 TSH 5.085 uIu/ml (0.300-4.500) H 09/02/24 19:11 Free T4 1.22 ng/dl (0.61-1.60) 09/04/24 07:59 Urine Color Yellow 09/02/24 19:32 Urine Appearance Clear (Clear) 09/02/24 19:32 Urine pH 5.5 (4.5-7.5) 09/02/24 19:32 Ur Specific [place] 1.010 (1.000-1.030) 09/02/24 19:32 Urine Protein Trace (Negative) H 09/02/24 19:32 Urine Glucose (UA) Negative (Negative) 09/02/24 19: Urine Ketones Negative (Negative) 09/02/24 19: Urine Blood 1+ (Negative) H 09/02/24 19: Urine Nitrite Negative (Negative) 09/02/24 19: Urine Bilirubin Negative (Negative) 09/02/24 19:32 Urine Urobilinogen Negative (Negative) 09/02/24 19:32 Ur Leukocyte Esterase Negative (Negative) 09/02/24 19:32 Urine RBC 0-2 /hpf (0-2) 09/02/24 19:32 Urine WBC 0-5 /hpf (0-5) 09/02/24 19:32 Ur Epithelial Cells 0-2 /hpf (0-2) 09/02/24 19:32 Urine Bacteria None Seen (None Seen) 09/02/24 19:32 Hyaline Casts P /lpf (None Presnt) 09/02/24 19:32 Impressions Chest X-Ray 09/02/24 16:09 Clinical History: Dyspnea Technique: A frontal view of the chest was obtained Comparison is made to the prior examination dated 08/07/2024 Findings: There is worsened right lower lobe opacity, concerning for pneumonia. There is diffuse interstitial prominence, concerning for mild pulmonary edema. The heart size is at the upper limit of normal. No definite left pleural effusion or pneumothorax is seen. There is a small right frontal effusion No fracture is noted. No foreign body is seen Impression: 1. Suspected combination of pulmonary edema and right lower lobe pneumonia 2. Small right pleural effusion ACT 112: Positive. There are findings on this exam that require communication between the performing entity and the patient following Patient Test Result Information Act ([place] ACT 112) guidelines. Electronically signed by Mark Hanks 09-02-2024 4:58 PM Pelvis X-Ray 09/02/24 16:10 Clinical History: Fall 2 views of the pelvis are submitted for review. Comparison is made to the prior examination dated 08/07/2024 Findings: There are unchanged old fractures of the left superior and inferior pubic rami. No definite acute fracture is seen. There are bilateral total hip arthroplasties in expected position. There is no definite sign of infection or loosening. No other osseous abnormality is identified. There are no radiopaque foreign bodies. Impression: 1. Bilateral hip replacements 2. Old pubic rami fractures 3. No definite acute fracture Electronically signed by Mark Hanks 09-02-2024 4:56 PM Venous Doppler Study 09/03/24 10:50 BILATERAL LOWER EXTREMITY VENOUS DOPPLER HISTORY: Acute pain and swelling of the lower legs eval dvt COMPARISON STUDY: None. FINDINGS: Study is limited secondary to subcutaneous edema. There is normal compressibility, flow, and augmentation within the bilateral lower extremity deep venous systems. IMPRESSION: Subcutaneous edema without DVT identified within the right or left lower extremity. ACT 112: Negative or not required by law. Electronically signed by: Jose Garza M.D. 09/03/2024 11:44 AM Medications Administered Current Inpatient Medications Atorvastatin Calcium (Atorvastatin 10 Mg Tab) 10 mg PO QAM NELLI Stop: 10/03/24 08:59 Last Admin: 09/04/24 08:38 Dose: 10 mg Buspirone HCl (Buspirone 5 Mg Tab) 5 mg PO HS PRN PRN Reason: sleep Stop: 10/02/24 20:12 Clonazepam (Clonazepam 0.5 Mg Tab) 0.5 mg PO HS PRN PRN Reason: Insomnia Stop: 10/02/24 20:12 Cyanocobalamin (Cyanocobalamin (B-12) 2,500 Mcg Tablet) 2,500 mcg PO Q2D@0900 NELLI Stop: 10/03/24 08:59 Last Admin: 09/03/24 08:55 Dose: 2,500 mcg Dextrose (Dextrose 50% 50 Ml Syringe) 25 - 50 ml IV UD PRN; Protocol PRN Reason: Hypoglycemia Protocol Stop: 10/02/24 20:12 Docusate Sodium (Docusate Sodium 100 Mg Cap) 200 mg PO DAILY NELLI Stop: 10/03/24 08:59 Last Admin: 09/04/24 08:37 Dose: 200 mg Furosemide (Furosemide 40 Mg/4 Ml Vial) 40 mg IV BID NELLI Stop: 10/04/24 08:59 Last Admin: 09/04/24 08:38 Dose: 40 mg Glucagon (Glucagon For Inj 1 Mg Vial) 1 mg SQ UD PRN; Protocol PRN Reason: Hypoglycemia Protocol Stop: 10/02/24 20:12 Glucose (Glucose 40% Gel 15 Gm Tube) 15 - 30 gm PO UD PRN; Protocol PRN Reason: Hypoglycemia Protocol Stop: 10/02/24 20:12 Glucose (Glucose 10 Tab/Tube) 4 - 8 tab PO UD PRN; Protocol PRN Reason: Hypoglycemia Protocol Stop: 10/02/24 20:12 Heparin Sodium (Porcine) (Heparin Sod 5,000 Unit/0.5 Ml Vial) 5,000 units SQ Q12 NELLI Stop: 10/02/24 20:59 Last Admin: 09/04/24 08:38 Dose: 5,000 units Insulin Aspart (Insulin Aspart Per Unit Charge) 0 units SC ACHS NELLI Stop: 10/02/24 20:59 Last Admin: 09/04/24 13:07 Dose: 2 units Levothyroxine Sodium (Levothyroxine Sodium 75 Mcg Tablet) 75 mcg PO DAILYBB NELLI Stop: 10/03/24 06:29 Last Admin: 09/04/24 05:39 Dose: 75 mcg Metoprolol Tartrate (Metoprolol Tartrate 25 Mg Tab) 25 mg PO Q12 NELLI Stop: 10/02/24 20:59 Last Admin: 09/04/24 08:38 Dose: 25 mg Miscellaneous (Carbohydrates For Hypoglycemia ) 15 - 30 gm PO UD PRN PRN Reason: Hypoglycemia Protocol Stop: 10/02/24 20:12 Nitroglycerin (Nitroglycerin Sl 0.4 Mg/Tab Tab) 0.4 mg SL Q5M PRN PRN Reason: Chest Pain Stop: 10/02/24 20:12 Ondansetron HCl (Ondansetron Inj 2 Mg/Ml 2 Ml Vial) 4 mg IV Q6H PRN PRN Reason: Nausea Stop: 10/02/24 20:12 PG Care Time/CCT Total # of Minutes Spent Total Time Spent with Patient: Total time 25 minutes spent is greater than 50% in coordination of care (as documented) at patient's floor/unit and/or counseling patient: Coding Level of Care Code 17432 SUB INP/OBS CARE MIN Diagnoses Heart failure with improved ejection fraction (HFimpEF) I50.32 CLL (chronic lymphocytic leukemia) C91.10 Type 2 diabetes mellitus E11.9 Chronic kidney disease, stage III (moderate) N18.30
[2024-09-05 08:43] LABS: Hematocrit (blood only) 29.4 % (42.0-52.0); Hemoglobin 10.3 g/dl (14.0-18.0); Mean Corpuscular Hemoglobin 35.2 pg (25.0-34.0); Mean Corpuscular Volume 100.3 fL (80.0-100.0); Mean Platelet Volume 10.9 fL (9.4-12.4); Nucleated RBC # (auto) 0.02 K/uL (0.00-0.12); Nucleated RBC % (auto) 0.5 %; Platelet Count 66 K/uL (130-400); RDW Coefficient of Variation 18.6 % (11.5-14.5); RDW Standard Deviation 68.4 fL (36.4-46.3); Red Blood Count 2.93 M/uL (4.70-6.10); White Blood Count 3.79 K/ul (4.8-10.8)
[2024-09-05 09:10] LABS: Calcium 8.4 mg/dl (8.6-10.3); Magnesium 1.9 mg/dl (1.7-2.4); Potassium 3.8 mmol/L (3.5-5.1)
[2024-09-05 09:16] LABS: BUN Creatinine Ratio 25.4 (10-20); Creatinine Clr Calc Pharmacy 22.8 ml/min
[2024-09-05 09:35] LABS: Calcium 8.6 mg/dl (8.6-10.3)
[2024-09-05 09:40] LABS: BUN Creatinine Ratio 23.5 (10-20)
[2024-09-05 09:43] LABS: Troponin I High Sensitivity 131.2 pg/ml (0-20)
[2024-09-05] MEDS: BUMETANIDE 1 MG in SYRINGE 0 ML IV ONE (10:39)
--- NOTE | 2024-09-05 13:47 | Hospitalist Progress Note ---
Date of Service September 05, 2024 Assessment & Plan (1) Heart failure with improved ejection fraction (HFimpEF): (2) CLL (chronic lymphocytic leukemia): (3) Type 2 diabetes mellitus: (4) Chronic kidney disease, stage III (moderate): Plan 89-year-old male with PMH of CHF, CKD, falling episode, recently discharged from our facility in July for syncope event; and has his blood thinner held given frequent fall on this admission,present with leg edema, scrotal edema and concern for CHF exacerbation, and noted to has right heart dysfunction metoprolol reduce from 100mg daily to 25 BID CHF exacerbation (leg edema, scrotal edema) hypotension (resolved) constpation troponin elevation hx of CLL chronic kidney disease hyponatremia fall episodes A-fib of AC (given falling episode) overall plan for still have leg edema, he's will be on lasix 40mg IV daily monitor for creatinine value and potassium lactulose and miralax #Heart failure preserved ejection fraction. switched from lasix 80mg BIV to lasix 40mg IV daily given low BP he's still has significant scrotal edema and leg edema hyponatremia ensure constipation-miralax daily; s/p lactulose on 09/05 troponin elevation-demand ischemia no chest pain #Diabetes- off med at this point #Hypothyroidism-synthyroid DVT prevention will be heparin therapy renal dose adjusted, patient has a history of CLL Admission and Anticipated Discharge Date Admission Date: September 02, 2024 Subjective he still has volume overload; leg edema he's mentioned constipation; started on lactulose AAox3 Review of Systems Review of Systems: Cardiovascular: No Chest Pain, No SOB, No PND, No Dyspnea on Exertion, No Orthopnea, No Claudication, No Edema, No Palpitations Respiratory: No Cough, No Sputum, No Wheezing, No Smoke Exposure, No Dyspnea Gastrointestinal: + for constipatoin; no abdominal pain Genitourinary: + for scrotal edema; no dysuria Musculoskeletal: + for edema Neuro: No Weakness, No Numbness, No Paresthesias, No Loss of Consciousness, No Syncope, No Dizziness, No Headache, No Coordination Changes, No Recent Falls Psych: No Anxiety/Panic, No Depression, No Insomnia, No Personality Changes, No Delusions, No Rumination, No SI/HI/AH/VH, No Social Issues, No Memory Changes, No Violence/Abuse Hx., No Eating Concerns Physical Exam Physical Exam: VITALS: Reviewed. WEIGHT/BMI reviewed. GEN: ill appearing -Head: NC/AT; NECK: Supple, with no masses. CV: RRR, no m/r/g. LUNGS: CTAB, no w/r/c. ABD: Soft, NT/ND, NBS, no masses or organomegaly. : N/A SKIN: Warm, well perfused. No skin rashes or abnormal lesions. EXT: + edema NEURO: AAOx3 Results & Data Results & Data Vital Signs (Past 12 Hours) Vital Signs Pulse Pulse Resp BP BP Pulse Ox O2 Del Method 09/05/24 11:33 78 18 103/66 83/47 L 95 Room Air 09/05/24 09:06 77 09/05/24 07:53 77 18 109/72 98 Room Air 09/05/24 07:45 Room Air 09/05/24 03:46 77 16 99/65 L 97 Room Air Laboratory Results Laboratory Results - last 72 hr 09/02/24 09/02/24 09/02/24 16:24 17:29 19:11 WBC 5.85 RBC 3.17 L Hgb 11.0 L Hct 32.2 L MCV 101.6 H MCH 34.7 H MCHC 34.2 RDW Std Deviation 70.0 H RDW Coeff of [place] 18.8 H Plt Count 86 L MPV 12.2 Immature Gran % (Auto) 1.2 Neut % (Auto) 75.7 Lymph % (Auto) 10.3 [place] % (Auto) 12.1 Eos % (Auto) 0.2 Baso % (Auto) 0.5 Neut # (Auto) 4.43 Lymph # (Auto) 0.60 L [place] # (Auto) 0.71 H Eos # (Auto) 0.01 Baso # (Auto) 0.03 Immature Gran # (Auto) 0.07 Absolute Nucleated RBC 0.02 Nucleated RBC % (auto) 0.3 PT 13.8 H INR 1.3 H APTT 35 H PTT Ratio 1.3 Sodium 131 L Potassium 5.2 H Chloride 101 Carbon Dioxide 23 Anion Gap 7 BUN 45 H Creatinine 2.28 H Est Cr Clr Drug Dosing Not Reportable eGFR 26.76 BUN/Creatinine Ratio 19.7 Glucose 125 H POC Glucose Estimat Average Glucose Hemoglobin A1c Lactate Calcium 8.8 Magnesium 2.2 Total Bilirubin 2.9 H AST 50 H ALT 26 Alkaline Phosphatase 103 Troponin I High Sens 106.2 H* 122.3 H* C-Reactive Protein 1.20 H B-Natriuretic Peptide 366 H Total Protein 6.6 Albumin 4.1 Globulin 2.5 Albumin/Globulin Ratio 1.6 Procalcitonin 0.05 TSH 5.085 H Free T4 Urine Color Urine Appearance Urine pH Ur Specific [place] Urine Protein Urine Glucose (UA) Urine Ketones Urine Blood Urine Nitrite Urine Bilirubin Urine Urobilinogen Ur Leukocyte Esterase Urine RBC Urine WBC Ur Epithelial Cells Urine Bacteria Hyaline Casts 09/02/24 09/02/24 09/03/24 19:32 21:53 04:00 WBC 4.55 L RBC 3.02 L Hgb 10.5 L Hct 30.2 L MCV 100.0 MCH 34.8 H MCHC 34.8 RDW Std Deviation 68.0 H RDW Coeff of [place] 18.6 H Plt Count 76 L MPV 12.0 Immature Gran % (Auto) Neut % (Auto) Lymph % (Auto) [place] % (Auto) Eos % (Auto) Baso % (Auto) Neut # (Auto) Lymph # (Auto) [place] # (Auto) Eos # (Auto) Baso # (Auto) Immature Gran # (Auto) Absolute Nucleated RBC 0.04 Nucleated RBC % (auto) 0.9 PT INR APTT PTT Ratio Sodium 132 L Potassium 4.5 Chloride 101 Carbon Dioxide 24 Anion Gap 7 BUN 46 H Creatinine 2.17 H Est Cr Clr Drug Dosing 25.3 eGFR 28.39 BUN/Creatinine Ratio 21.2 H Glucose 94 POC Glucose 92 Estimat Average Glucose 128 Hemoglobin A1c 6.1 H Lactate Calcium 8.7 Magnesium 2.2 Total Bilirubin AST ALT Alkaline Phosphatase Troponin I High Sens 117.6 H* C-Reactive Protein B-Natriuretic Peptide Total Protein Albumin Globulin Albumin/Globulin Ratio Procalcitonin TSH Free T4 Urine Color Yellow Urine Appearance Clear Urine pH 5.5 Ur Specific [place] 1.010 Urine Protein Trace H Urine Glucose (UA) Negative Urine Ketones Negative Urine Blood 1+ H Urine Nitrite Negative Urine Bilirubin Negative Urine Urobilinogen Negative Ur Leukocyte Esterase Negative Urine RBC 0-2 Urine WBC 0-5 Ur Epithelial Cells 0-2 Urine Bacteria None Seen Hyaline Casts P 09/03/24 09/03/24 09/03/24 07:28 12:08 12:47 WBC RBC Hgb Hct MCV MCH MCHC RDW Std Deviation RDW Coeff of [place] Plt Count MPV Immature Gran % (Auto) Neut % (Auto) Lymph % (Auto) [place] % (Auto) Eos % (Auto) Baso % (Auto) Neut # (Auto) Lymph # (Auto) [place] # (Auto) Eos # (Auto) Baso # (Auto) Immature Gran # (Auto) Absolute Nucleated RBC Nucleated RBC % (auto) PT INR APTT PTT Ratio Sodium Potassium Chloride Carbon Dioxide Anion Gap BUN Creatinine Est Cr Clr Drug Dosing eGFR BUN/Creatinine Ratio Glucose POC Glucose 95 194 H Estimat Average Glucose Hemoglobin A1c Lactate Calcium Magnesium Total Bilirubin AST ALT Alkaline Phosphatase Troponin I High Sens 108.7 H* C-Reactive Protein B-Natriuretic Peptide Total Protein Albumin Globulin Albumin/Globulin Ratio Procalcitonin TSH Free T4 Urine Color Urine Appearance Urine pH Ur Specific [place] Urine Protein Urine Glucose (UA) Urine Ketones Urine Blood Urine Nitrite Urine Bilirubin Urine Urobilinogen Ur Leukocyte Esterase Urine RBC Urine WBC Ur Epithelial Cells Urine Bacteria Hyaline Casts 09/03/24 09/03/24 09/03/24 17:13 19:58 20:31 WBC RBC Hgb Hct MCV MCH MCHC RDW Std Deviation RDW Coeff of [place] Plt Count MPV Immature Gran % (Auto) Neut % (Auto) Lymph % (Auto) [place] % (Auto) Eos % (Auto) Baso % (Auto) Neut # (Auto) Lymph # (Auto) [place] # (Auto) Eos # (Auto) Baso # (Auto) Immature Gran # (Auto) Absolute Nucleated RBC Nucleated RBC % (auto) PT INR APTT PTT Ratio Sodium Potassium Chloride Carbon Dioxide Anion Gap BUN Creatinine Est Cr Clr Drug Dosing eGFR BUN/Creatinine Ratio Glucose POC Glucose 99 > 600 H* Estimat Average Glucose Hemoglobin A1c Lactate Calcium Magnesium Total Bilirubin AST ALT Alkaline Phosphatase Troponin I High Sens 97.6 H* D C-Reactive Protein B-Natriuretic Peptide Total Protein Albumin Globulin Albumin/Globulin Ratio Procalcitonin TSH Free T4 Urine Color Urine Appearance Urine pH Ur Specific [place] Urine Protein Urine Glucose (UA) Urine Ketones Urine Blood Urine Nitrite Urine Bilirubin Urine Urobilinogen Ur Leukocyte Esterase Urine RBC Urine WBC Ur Epithelial Cells Urine Bacteria Hyaline Casts 09/03/24 09/04/24 09/04/24 20:33 07:52 07:59 WBC 4.39 L RBC 3.16 L Hgb 10.9 L Hct 31.5 L MCV 99.7 MCH 34.5 H MCHC 34.6 RDW Std Deviation 68.3 H RDW Coeff of [place] 18.6 H Plt Count 68 L MPV 11.5 Immature Gran % (Auto) Neut % (Auto) Lymph % (Auto) [place] % (Auto) Eos % (Auto) Baso % (Auto) Neut # (Auto) Lymph # (Auto) [place] # (Auto) Eos # (Auto) Baso # (Auto) Immature Gran # (Auto) Absolute Nucleated RBC 0.02 Nucleated RBC % (auto) 0.5 PT INR APTT PTT Ratio Sodium 136 Potassium Chloride Carbon Dioxide Anion Gap BUN Creatinine Est Cr Clr Drug Dosing eGFR BUN/Creatinine Ratio Glucose POC Glucose 154 H 98 Estimat Average Glucose Hemoglobin A1c Lactate Calcium Magnesium Total Bilirubin AST ALT Alkaline Phosphatase Troponin I High Sens C-Reactive Protein B-Natriuretic Peptide Total Protein Albumin Globulin Albumin/Globulin Ratio Procalcitonin TSH Free T4 Urine Color Urine Appearance Urine pH Ur Specific [place] Urine Protein Urine Glucose (UA) Urine Ketones Urine Blood Urine Nitrite Urine Bilirubin Urine Urobilinogen Ur Leukocyte Esterase Urine RBC Urine WBC Ur Epithelial Cells Urine Bacteria Hyaline Casts 09/04/24 09/04/24 09/04/24 07:59 07:59 07:59 WBC RBC Hgb Hct MCV MCH MCHC RDW Std Deviation RDW Coeff of [place] Plt Count MPV Immature Gran % (Auto) Neut % (Auto) Lymph % (Auto) [place] % (Auto) Eos % (Auto) Baso % (Auto) Neut # (Auto) Lymph # (Auto) [place] # (Auto) Eos # (Auto) Baso # (Auto) Immature Gran # (Auto) Absolute Nucleated RBC Nucleated RBC % (auto) PT INR APTT PTT Ratio Sodium 136 Potassium 3.9 4.0 Chloride 101 101 Carbon Dioxide 28 Anion Gap BUN Creatinine Est Cr Clr Drug Dosing eGFR BUN/Creatinine Ratio Glucose POC Glucose Estimat Average Glucose Hemoglobin A1c Lactate Calcium Magnesium Total Bilirubin AST ALT Alkaline Phosphatase Troponin I High Sens C-Reactive Protein B-Natriuretic Peptide Total Protein Albumin Globulin Albumin/Globulin Ratio Procalcitonin TSH Free T4 Urine Color Urine Appearance Urine pH Ur Specific [place] Urine Protein Urine Glucose (UA) Urine Ketones Urine Blood Urine Nitrite Urine Bilirubin Urine Urobilinogen Ur Leukocyte Esterase Urine RBC Urine WBC Ur Epithelial Cells Urine Bacteria Hyaline Casts 09/04/24 09/04/24 09/04/24 07:59 07:59 07:59 WBC RBC Hgb Hct MCV MCH MCHC RDW Std Deviation RDW Coeff of [place] Plt Count MPV Immature Gran % (Auto) Neut % (Auto) Lymph % (Auto) [place] % (Auto) Eos % (Auto) Baso % (Auto) Neut # (Auto) Lymph # (Auto) [place] # (Auto) Eos # (Auto) Baso # (Auto) Immature Gran # (Auto) Absolute Nucleated RBC Nucleated RBC % (auto) PT INR APTT PTT Ratio Sodium Potassium Chloride Carbon Dioxide 28 Anion Gap 7 7 BUN 48 H 48 H Creatinine 2.06 H Est Cr Clr Drug Dosing eGFR BUN/Creatinine Ratio Glucose POC Glucose Estimat Average Glucose Hemoglobin A1c Lactate Calcium Magnesium Total Bilirubin AST ALT Alkaline Phosphatase Troponin I High Sens C-Reactive Protein B-Natriuretic Peptide Total Protein Albumin Globulin Albumin/Globulin Ratio Procalcitonin TSH Free T4 Urine Color Urine Appearance Urine pH Ur Specific [place] Urine Protein Urine Glucose (UA) Urine Ketones Urine Blood Urine Nitrite Urine Bilirubin Urine Urobilinogen Ur Leukocyte Esterase Urine RBC Urine WBC Ur Epithelial Cells Urine Bacteria Hyaline Casts 09/04/24 09/04/24 09/04/24 07:59 07:59 07:59 WBC RBC Hgb Hct MCV MCH MCHC RDW Std Deviation RDW Coeff of [place] Plt Count MPV Immature Gran % (Auto) Neut % (Auto) Lymph % (Auto) [place] % (Auto) Eos % (Auto) Baso % (Auto) Neut # (Auto) Lymph # (Auto) [place] # (Auto) Eos # (Auto) Baso # (Auto) Immature Gran # (Auto) Absolute Nucleated RBC Nucleated RBC % (auto) PT INR APTT PTT Ratio Sodium Potassium Chloride Carbon Dioxide Anion Gap BUN Creatinine 2.03 H Est Cr Clr Drug Dosing 26.7 27.1 eGFR 30.22 30.76 BUN/Creatinine Ratio 23.3 H Glucose POC Glucose Estimat Average Glucose Hemoglobin A1c Lactate Calcium Magnesium Total Bilirubin AST ALT Alkaline Phosphatase Troponin I High Sens C-Reactive Protein B-Natriuretic Peptide Total Protein Albumin Globulin Albumin/Globulin Ratio Procalcitonin TSH Free T4 Urine Color Urine Appearance Urine pH Ur Specific [place] Urine Protein Urine Glucose (UA) Urine Ketones Urine Blood Urine Nitrite Urine Bilirubin Urine Urobilinogen Ur Leukocyte Esterase Urine RBC Urine WBC Ur Epithelial Cells Urine Bacteria Hyaline Casts 09/04/24 09/04/24 09/04/24 07:59 07:59 07:59 WBC RBC Hgb Hct MCV MCH MCHC RDW Std Deviation RDW Coeff of [place] Plt Count MPV Immature Gran % (Auto) Neut % (Auto) Lymph % (Auto) [place] % (Auto) Eos % (Auto) Baso % (Auto) Neut # (Auto) Lymph # (Auto) [place] # (Auto) Eos # (Auto) Baso # (Auto) Immature Gran # (Auto) Absolute Nucleated RBC Nucleated RBC % (auto) PT INR APTT PTT Ratio Sodium Potassium Chloride Carbon Dioxide Anion Gap BUN Creatinine Est Cr Clr Drug Dosing eGFR BUN/Creatinine Ratio 23.6 H Glucose 93 93 POC Glucose Estimat Average Glucose Hemoglobin A1c Lactate Calcium 8.7 8.7 Magnesium 2.0 Total Bilirubin AST ALT Alkaline Phosphatase Troponin I High Sens 114.9 H* C-Reactive Protein B-Natriuretic Peptide Total Protein Albumin Globulin Albumin/Globulin Ratio Procalcitonin TSH Free T4 1.22 Urine Color Urine Appearance Urine pH Ur Specific [place] Urine Protein Urine Glucose (UA) Urine Ketones Urine Blood Urine Nitrite Urine Bilirubin Urine Urobilinogen Ur Leukocyte Esterase Urine RBC Urine WBC Ur Epithelial Cells Urine Bacteria Hyaline Casts 09/04/24 09/04/24 09/04/24 11:54 16:56 20:13 WBC RBC Hgb Hct MCV MCH MCHC RDW Std Deviation RDW Coeff of [place] Plt Count MPV Immature Gran % (Auto) Neut % (Auto) Lymph % (Auto) [place] % (Auto) Eos % (Auto) Baso % (Auto) Neut # (Auto) Lymph # (Auto) [place] # (Auto) Eos # (Auto) Baso # (Auto) Immature Gran # (Auto) Absolute Nucleated RBC Nucleated RBC % (auto) PT INR APTT PTT Ratio Sodium Potassium Chloride Carbon Dioxide Anion Gap BUN Creatinine Est Cr Clr Drug Dosing eGFR BUN/Creatinine Ratio Glucose POC Glucose 190 H 82 112 H Estimat Average Glucose Hemoglobin A1c Lactate Calcium Magnesium Total Bilirubin AST ALT Alkaline Phosphatase Troponin I High Sens C-Reactive Protein B-Natriuretic Peptide Total Protein Albumin Globulin Albumin/Globulin Ratio Procalcitonin TSH Free T4 Urine Color Urine Appearance Urine pH Ur Specific [place] Urine Protein Urine Glucose (UA) Urine Ketones Urine Blood Urine Nitrite Urine Bilirubin Urine Urobilinogen Ur Leukocyte Esterase Urine RBC Urine WBC Ur Epithelial Cells Urine Bacteria Hyaline Casts 09/05/24 09/05/24 09/05/24 08:09 08:10 08:54 WBC 3.79 L RBC 2.93 L Hgb 10.3 L Hct 29.4 L MCV 100.3 H MCH 35.2 H MCHC 35.0 RDW Std Deviation 68.4 H RDW Coeff of [place] 18.6 H Plt Count 66 L MPV 10.9 Immature Gran % (Auto) Neut % (Auto) Lymph % (Auto) [place] % (Auto) Eos % (Auto) Baso % (Auto) Neut # (Auto) Lymph # (Auto) [place] # (Auto) Eos # (Auto) Baso # (Auto) Immature Gran # (Auto) Absolute Nucleated RBC 0.02 Nucleated RBC % (auto) 0.5 PT INR APTT PTT Ratio Sodium 136 137 Potassium 3.8 4.0 Chloride 100 99 Carbon Dioxide 28 29 Anion Gap 8 9 BUN 53 H 51 H Creatinine 2.09 H 2.17 H Est Cr Clr Drug Dosing 22.8 22.0 eGFR 29.70 28.39 BUN/Creatinine Ratio 25.4 H 23.5 H Glucose 70 118 H POC Glucose 81 Estimat Average Glucose Hemoglobin A1c Lactate 1.2 Calcium 8.4 L 8.6 Magnesium 1.9 Total Bilirubin AST ALT Alkaline Phosphatase Troponin I High Sens 131.2 H* C-Reactive Protein B-Natriuretic Peptide Total Protein Albumin Globulin Albumin/Globulin Ratio Procalcitonin TSH Free T4 Urine Color Urine Appearance Urine pH Ur Specific [place] Urine Protein Urine Glucose (UA) Urine Ketones Urine Blood Urine Nitrite Urine Bilirubin Urine Urobilinogen Ur Leukocyte Esterase Urine RBC Urine WBC Ur Epithelial Cells Urine Bacteria Hyaline Casts 09/05/24 11:59 WBC RBC Hgb Hct MCV MCH MCHC RDW Std Deviation RDW Coeff of [place] Plt Count MPV Immature Gran % (Auto) Neut % (Auto) Lymph % (Auto) [place] % (Auto) Eos % (Auto) Baso % (Auto) Neut # (Auto) Lymph # (Auto) [place] # (Auto) Eos # (Auto) Baso # (Auto) Immature Gran # (Auto) Absolute Nucleated RBC Nucleated RBC % (auto) PT INR APTT PTT Ratio Sodium Potassium Chloride Carbon Dioxide Anion Gap BUN Creatinine Est Cr Clr Drug Dosing eGFR BUN/Creatinine Ratio Glucose POC Glucose 263 H Estimat Average Glucose Hemoglobin A1c Lactate Calcium Magnesium Total Bilirubin AST ALT Alkaline Phosphatase Troponin I High Sens C-Reactive Protein B-Natriuretic Peptide Total Protein Albumin Globulin Albumin/Globulin Ratio Procalcitonin TSH Free T4 Urine Color Urine Appearance Urine pH Ur Specific [place] Urine Protein Urine Glucose (UA) Urine Ketones Urine Blood Urine Nitrite Urine Bilirubin Urine Urobilinogen Ur Leukocyte Esterase Urine RBC Urine WBC Ur Epithelial Cells Urine Bacteria Hyaline Casts Diagnostic Findings Laboratory Results WBC 3.79 K/ul (4.8-10.8) L 09/05/24 08:10 RBC 2.93 M/uL (4.70-6.10) L 09/05/24 08:10 Hgb 10.3 g/dl (14.0-18.0) L 09/05/24 08:10 Hct 29.4 % (42.0-52.0) L 09/05/24 08:10 MCV 100.3 fL (80.0-100.0) H 09/05/24 08:10 MCH 35.2 pg (25.0-34.0) H 09/05/24 08:10 MCHC 35.0 g/dL (32.0-36.0) 09/05/24 08:10 RDW Std Deviation 68.4 fL (36.4-46.3) H 09/05/24 08:10 RDW Coeff of [place] 18.6 % (11.5-14.5) H 09/05/24 08:10 Plt Count 66 K/uL (130-400) L 09/05/24 08:10 MPV 10.9 fL (9.4-12.4) 09/05/24 08:10 Immature Gran % (Auto) 1.2 % 09/02/24 16:24 Neut % (Auto) 75.7 % 09/02/24 16:24 Lymph % (Auto) 10.3 % 09/02/24 16:24 [place] % (Auto) 12.1 % 09/02/24 16:24 Eos % (Auto) 0.2 % 09/02/24 16:24 Baso % (Auto) 0.5 % 09/02/24 16:24 Neut # (Auto) 4.43 K/uL (1.40-6.50) 09/02/24 16:24 Lymph # (Auto) 0.60 K/uL (1.20-3.40) L 09/02/24 16:24 [place] # (Auto) 0.71 K/uL (0.11-0.59) H 09/02/24 16:24 Eos # (Auto) 0.01 K/uL (0.00-0.50) 09/02/24 16:24 Baso # (Auto) 0.03 K/uL (0.00-0.20) 09/02/24 16:24 Immature Gran # (Auto) 0.07 K/uL (0.01-0.20) 09/02/24 16:24 Absolute Nucleated RBC 0.02 K/uL (0.00-0.12) 09/05/24 08:10 Nucleated RBC % (auto) 0.5 % 09/05/24 08:10 PT 13.8 Seconds (9.0-12.0) H 09/02/24 16:24 INR 1.3 (0.9-1.1) H 09/02/24 16:24 APTT 35 Seconds (21-31) H 09/02/24 16:24 PTT Ratio 1.3 09/02/24 16:24 Sodium 137 mmol/L (136-145) 09/05/24 08:54 Potassium 4.0 mmol/L (3.5-5.1) 09/05/24 08:54 Chloride 99 mmol/L (98-107) 09/05/24 08:54 Carbon Dioxide 29 mmol/L (21-32) 09/05/24 08:54 Anion Gap 9 (3-11) 09/05/24 08:54 BUN 51 mg/dl (6-23) H 09/05/24 08:54 Creatinine 2.17 mg/dl (0.6-1.4) H 09/05/24 08:54 Est Cr Clr Drug Dosing 22.0 ml/min 09/05/24 08:54 eGFR 28.39 09/05/24 08:54 BUN/Creatinine Ratio 23.5 (10-20) H 09/05/24 08:54 Glucose 118 mg/dl (70-99(Fasting)) H 09/05/24 08:54 POC Glucose 263 mg/dl (70-99) H 09/05/24 11:59 Estimat Average Glucose 128 mg/dl 09/03/24 04:00 Hemoglobin A1c 6.1 % (4.5-5.6) H 09/03/24 04:00 Lactate 1.2 mmol/L (0.4-2.0) 09/05/24 08:54 Calcium 8.6 mg/dl (8.6-10.3) 09/05/24 08:54 Magnesium 1.9 mg/dl (1.7-2.4) 09/05/24 08:10 Total Bilirubin 2.9 mg/dl (0.2-1.0) H 09/02/24 16:24 AST 50 U/L (13-39) H 09/02/24 16:24 ALT 26 U/L (7-52) 09/02/24 16:24 Alkaline Phosphatase 103 U/L (34-104) 09/02/24 16:24 Troponin I High Sens 131.2 pg/ml (0-20) H* 09/05/24 08:54 C-Reactive Protein 1.20 mg/dl (0-0.5) H 09/02/24 16:24 B-Natriuretic Peptide 366 pg/ml (0-100) H 09/02/24 16:24 Total Protein 6.6 gm/dl (6.0-8.3) 09/02/24 16:24 Albumin 4.1 gm/dl (3.4-5.0) 09/02/24 16:24 Globulin 2.5 gm/dl (2.5-4.0) 09/02/24 16:24 Albumin/Globulin Ratio 1.6 (0.9-2) 09/02/24 16:24 Procalcitonin 0.05 ng/ml (0-0.5) 09/02/24 17:29 TSH 5.085 uIu/ml (0.300-4.500) H 09/02/24 19:11 Free T4 1.22 ng/dl (0.61-1.60) 09/04/24 07:59 Urine Color Yellow 09/02/24 19:32 Urine Appearance Clear (Clear) 09/02/24 19:32 Urine pH 5.5 (4.5-7.5) 09/02/24 19:32 Ur Specific [place] 1.010 (1.000-1.030) 09/02/24 19:32 Urine Protein Trace (Negative) H 09/02/24 19:32 Urine Glucose (UA) Negative (Negative) 09/02/24 19:32 Urine Ketones Negative (Negative) 09/02/24 19:32 Urine Blood 1+ (Negative) H 09/02/24 19:32 Urine Nitrite Negative (Negative) 09/02/24 19:32 Urine Bilirubin Negative (Negative) 09/02/24 19:32 Urine Urobilinogen Negative (Negative) 09/02/24 19:32 Ur Leukocyte Esterase Negative (Negative) 09/02/24 19:32 Urine RBC 0-2 /hpf (0-2) 09/02/24 19:32 Urine WBC 0-5 /hpf (0-5) 09/02/24 19:32 Ur Epithelial Cells 0-2 /hpf (0-2) 09/02/24 19:32 Urine Bacteria None Seen (None Seen) 09/02/24 19:32 Hyaline Casts P /lpf (None Presnt) 09/02/24 19:32 Impressions Chest X-Ray 09/02/24 16:09 Clinical History: Dyspnea Technique: A frontal view of the chest was obtained Comparison is made to the prior examination dated 08/07/2024 Findings: There is worsened right lower lobe opacity, concerning for pneumonia. There is diffuse interstitial prominence, concerning for mild pulmonary edema. The heart size is at the upper limit of normal. No definite left pleural effusion or pneumothorax is seen. There is a small right frontal effusion No fracture is noted. No foreign body is seen Impression: 1. Suspected combination of pulmonary edema and right lower lobe pneumonia 2. Small right pleural effusion ACT 112: Positive. There are findings on this exam that require communication between the performing entity and the patient following Patient Test Result Information Act ([place] ACT 112) guidelines. Electronically signed by Mark Hanks 09-02-2024 4:58 PM Pelvis X-Ray 09/02/24 16:10 Clinical History: Fall 2 views of the pelvis are submitted for review. Comparison is made to the prior examination dated 08/07/2024 Findings: There are unchanged old fractures of the left superior and inferior pubic rami. No definite acute fracture is seen. There are bilateral total hip arthroplasties in expected position. There is no definite sign of infection or loosening. No other osseous abnormality is identified. There are no radiopaque foreign bodies. Impression: 1. Bilateral hip replacements 2. Old pubic rami fractures 3. No definite acute fracture Electronically signed by Mark Hanks 09-02-2024 4:56 PM Venous Doppler Study 09/03/24 10:50 BILATERAL LOWER EXTREMITY VENOUS DOPPLER HISTORY: Acute pain and swelling of the lower legs eval dvt COMPARISON STUDY: None. FINDINGS: Study is limited secondary to subcutaneous edema. There is normal compressibility, flow, and augmentation within the bilateral lower extremity deep venous systems. IMPRESSION: Subcutaneous edema without DVT identified within the right or left lower extremity. ACT 112: Negative or not required by law. Electronically signed by: Jose Garza M.D. 09/03/2024 11:44 AM Medications Administered Current Inpatient Medications Atorvastatin Calcium (Atorvastatin 10 Mg Tab) 10 mg PO QAM NELLI Stop: 10/03/24 08:59 Last Admin: 09/05/24 08:27 Dose: 10 mg Buspirone HCl (Buspirone 5 Mg Tab) 5 mg PO HS PRN PRN Reason: sleep Stop: 10/02/24 20:12 Clonazepam (Clonazepam 0.5 Mg Tab) 0.5 mg PO HS PRN PRN Reason: Insomnia Stop: 10/02/24 20:12 Cyanocobalamin (Cyanocobalamin (B-12) 2,500 Mcg Tablet) 2,500 mcg PO Q2D@0900 NELLI Stop: 10/03/24 08:59 Last Admin: 09/05/24 08:27 Dose: 2,500 mcg Dextrose (Dextrose 50% 50 Ml Syringe) 25 - 50 ml IV UD PRN; Protocol PRN Reason: Hypoglycemia Protocol Stop: 10/02/24 20:12 Docusate Sodium (Docusate Sodium 100 Mg Cap) 200 mg PO DAILY NELLI Stop: 10/03/24 08:59 Last Admin: 09/05/24 08:27 Dose: 200 mg Furosemide (Furosemide 40 Mg/4 Ml Vial) 40 mg IV BID NELLI Stop: 10/04/24 08:59 Last Admin: 09/05/24 08:27 Dose: 40 mg Glucagon (Glucagon For Inj 1 Mg Vial) 1 mg SQ UD PRN; Protocol PRN Reason: Hypoglycemia Protocol Stop: 10/02/24 20:12 Glucose (Glucose 40% Gel 15 Gm Tube) 15 - 30 gm PO UD PRN; Protocol PRN Reason: Hypoglycemia Protocol Stop: 10/02/24 20:12 Glucose (Glucose 10 Tab/Tube) 4 - 8 tab PO UD PRN; Protocol PRN Reason: Hypoglycemia Protocol Stop: 10/02/24 20:12 Heparin Sodium (Porcine) (Heparin Sod 5,000 Unit/0.5 Ml Vial) 5,000 units SQ Q12 NELLI Stop: 10/02/24 20:59 Last Admin: 09/05/24 08:27 Dose: 5,000 units Insulin Aspart (Insulin Aspart Per Unit Charge) 0 units SC ACHS NELLI Stop: 10/02/24 20:59 Last Admin: 09/05/24 12:38 Dose: 5 units Lactulose (Lactulose Syrup 20 Gm/30 Ml Udc) 20 gm PO NOW ONE Stop: 09/05/24 13:46 Levothyroxine Sodium (Levothyroxine Sodium 75 Mcg Tablet) 75 mcg PO DAILYBB NELLI Stop: 10/03/24 06:29 Last Admin: 09/05/24 05:43 Dose: 75 mcg Metoprolol Tartrate (Metoprolol Tartrate 25 Mg Tab) 25 mg PO Q12 NELLI Stop: 10/02/24 20:59 Last Admin: 09/05/24 08:27 Dose: 25 mg Miscellaneous (Carbohydrates For Hypoglycemia ) 15 - 30 gm PO UD PRN PRN Reason: Hypoglycemia Protocol Stop: 10/02/24 20:12 Nitroglycerin (Nitroglycerin Sl 0.4 Mg/Tab Tab) 0.4 mg SL Q5M PRN PRN Reason: Chest Pain Stop: 10/02/24 20:12 Ondansetron HCl (Ondansetron Inj 2 Mg/Ml 2 Ml Vial) 4 mg IV Q6H PRN PRN Reason: Nausea Stop: 10/02/24 20:12 Polyethylene Glycol (Polyethylene (Miralax) 17 Gm Pack) 17 gm PO DAILY [facility] Stop: 10/06/24 08:59 PG Care Time/CCT Total # of Minutes Spent Total Time Spent with Patient: Total time 20 spent is greater than 50% in coordination of care (as documented) at patient's floor/unit and/or counseling patient: Coding Level of Care Code 10332 SUB INP/OBS CARE 2/35MIN Diagnoses Heart failure with improved ejection fraction (HFimpEF) I50.32 CLL (chronic lymphocytic leukemia) C91.10 Type 2 diabetes mellitus E11.9 Chronic kidney disease, stage III (moderate) N18.30 Time Spent (min) 25
[2024-09-05] MEDS: LACTULOSE SYRUP 20 GM/30 ML UDC PO ONE (14:11)
[2024-09-06] MEDS: LACTULOSE SYRUP 20 GM/30 ML UDC PO ONE (08:17)
[2024-09-06] MEDS: FUROSEMIDE 40 MG/4 ML VIAL IV SCH (08:22)
[2024-09-06] MEDS: LACTULOSE SYRUP 20 GM/30 ML UDC PO SCH (08:23)
[2024-09-06] MEDS: POLYETHYLENE (MIRALAX) 17 GM PACK PO SCH (08:23)
[2024-09-06] MEDS: cefTRIAXone SODIUM 1,000 MG/50 ML BAG IV SCH (08:29)
[2024-09-06 08:55] LABS: Hematocrit (blood only) 29.8 % (42.0-52.0); Hemoglobin 10.5 g/dl (14.0-18.0); Mean Corpuscular Hgb Conc 35.2 g/dL (32.0-36.0); Mean Corpuscular Volume 99.3 fL (80.0-100.0); Mean Platelet Volume 11.2 fL (9.4-12.4); Platelet Count 71 K/uL (130-400); RDW Coefficient of Variation 18.2 % (11.5-14.5); RDW Standard Deviation 66.9 fL (36.4-46.3); White Blood Count 3.96 K/ul (4.8-10.8)
[2024-09-06 09:14] LABS: BUN Creatinine Ratio 25.2 (10-20); Calcium 8.3 mg/dl (8.6-10.3); Creatinine Clr Calc Pharmacy 23.9 ml/min; Potassium 3.8 mmol/L (3.5-5.1)
[2024-09-06] MEDS: SENNA 8.6 MG TAB PO SCH (10:41)
[2024-09-06] MEDS: LACTULOSE SYRUP 30 GM/45 ML UDP PO SCH (10:41)
--- NOTE | 2024-09-06 13:31 | Hospitalist Progress Note ---
Date of Service September 06, 2024 Assessment & Plan (1) Heart failure with improved ejection fraction (HFimpEF): (2) CLL (chronic lymphocytic leukemia): (3) Type 2 diabetes mellitus: (4) Chronic kidney disease, stage III (moderate): Plan 89-year-old male with PMH of CHF, CKD, falling episode, recently discharged from our facility in July for syncope event; and has his blood thinner held given frequent fall on this admission,present with leg edema, scrotal edema and concern for CHF exacerbation, and noted to has right heart dysfunction metoprolol reduce from 100mg daily to 25 BID CHF exacerbation (leg edema, scrotal edema) hypotension, hypothermia constipation troponin elevation hx of CLL chronic kidney disease (baseline creatinine of 2.0--2.1) hyponatremia fall episodes A-fib of AC (given falling episode) Overall plan today He still have hypothermia and soft blood pressures ceftriaxone for 48-hour Follow-up blood culture, He have ongoing leg edema, he will still be on diuretic He was recommended going to short-term rehab but he declined he is AO x 3 He is understand the risks and benefits Severe constipation he will need lactulose, afterwards will begin MiraLAX twice daily #Heart failure preserved ejection fraction. c/w with lasix 40mg IV daily given low BP he's still has significant scrotal edema and leg edema constipation-miralax daily; continue lactulose troponin elevation-demand ischemia no chest pain No shortness of breath #Diabetes- off med at this point #Hypothyroidism-synthyroid DVT prevention will be heparin therapy renal dose adjusted, patient has a history of CLL Admission and Anticipated Discharge Date Admission Date: September 02, 2024 Subjective He had hypothermia with low BP will begin ceftriaxone IV Will need to ensure his hypothermia resolved for 48 hours He is still having leg edema, His scrotal edema improved Will continue his IV Lasix at 40 creatinine stable at 2.02 which is close to his baseline Constipation started on lactulose, AO x 3 Review of Systems Review of Systems: Constitutional: No Weight Change, No Fever, No Chills, No Night Sweats, No Fatigue, No Malaise ENT/Mouth: No Hearing Changes, No Ear Pain, No Nasal Congestion, No Sinus Pain, No Hoarseness, No sore throat, No Rhinorrhea, No Swallowing Difficulty Eyes: No Eye Pain, No Swelling, No Redness, No Foreign Body, No Discharge, No Vision Changes Cardiovascular: No Chest Pain, No SOB, No PND, No Dyspnea on Exertion, + for leg edema Gastrointestinal: No Nausea, No Vomiting, + for constipation; no diarrhea Genitourinary: scrotal swelling improved; no hematuria Neuro: No Weakness, No Numbness, No Paresthesias, No Loss of Consciousness, No Syncope, No Dizziness, No Headache, No Coordination Changes, No Recent Falls Heme/Lymph: No Bruising, No Bleeding, No Transfusions History, No Lymphadenopathy Endocrine: No Polyuria, No Polydipsia, No Temperature Intolerance Physical Exam Physical Exam: VITALS: Reviewed. WEIGHT/BMI reviewed. GEN: chronically ill appearing -Head: NC/AT; NECK: Supple, with no masses. CV: RRR, no m/r/g. LUNGS: CTAB, no w/r/c. on oxygen; no accessory muscle use ABD: Soft, NT/ND, NBS, no masses or organomegaly. : N/A EXT: + for leg edema NEURO: AAox3 Results & Data Results & Data Vital Signs (Past 12 Hours) Vital Signs Temp Pulse Pulse Resp BP Pulse Ox O2 Del Method 09/06/24 11:26 36.4 C L 80 20 98/61 L 98 Room Air 09/06/24 08:12 36.5 C 79 16 105/61 93 Room Air 09/06/24 07:37 85 09/06/24 07:22 Room Air 09/06/24 04:00 36.3 C L 76 18 109/67 99 Room Air Laboratory Results Laboratory Results - last 72 hr 09/03/24 09/03/24 09/03/24 12:47 17:13 19:58 WBC RBC Hgb Hct MCV MCH MCHC RDW Std Deviation RDW Coeff of Gilbert Plt Count MPV Absolute Nucleated RBC Nucleated RBC % (auto) Sodium Potassium Chloride Carbon Dioxide Anion Gap BUN Creatinine Est Cr Clr Drug Dosing eGFR BUN/Creatinine Ratio Glucose POC Glucose 99 Lactate Calcium Magnesium Troponin I High Sens 108.7 H* 97.6 H* D Free T4 09/03/24 09/03/24 09/04/24 20:31 20:33 07:52 WBC RBC Hgb Hct MCV MCH MCHC RDW Std Deviation RDW Coeff of Gilbert Plt Count MPV Absolute Nucleated RBC Nucleated RBC % (auto) Sodium Potassium Chloride Carbon Dioxide Anion Gap BUN Creatinine Est Cr Clr Drug Dosing eGFR BUN/Creatinine Ratio Glucose POC Glucose > 600 H* 154 H 98 Lactate Calcium Magnesium Troponin I High Sens Free T4 09/04/24 09/04/24 09/04/24 07:59 07:59 07:59 WBC 4.39 L RBC 3.16 L Hgb 10.9 L Hct 31.5 L MCV 99.7 MCH 34.5 H MCHC 34.6 RDW Std Deviation 68.3 H RDW Coeff of Gilbert 18.6 H Plt Count 68 L MPV 11.5 Absolute Nucleated RBC 0.02 Nucleated RBC % (auto) 0.5 Sodium 136 136 Potassium 3.9 4.0 Chloride 101 Carbon Dioxide Anion Gap BUN Creatinine Est Cr Clr Drug Dosing eGFR BUN/Creatinine Ratio Glucose POC Glucose Lactate Calcium Magnesium Troponin I High Sens Free T4 09/04/24 09/04/24 09/04/24 07:59 07:59 07:59 WBC RBC Hgb Hct MCV MCH MCHC RDW Std Deviation RDW Coeff of Gilbert Plt Count MPV Absolute Nucleated RBC Nucleated RBC % (auto) Sodium Potassium Chloride 101 Carbon Dioxide 28 28 Anion Gap 7 7 BUN 48 H Creatinine Est Cr Clr Drug Dosing eGFR BUN/Creatinine Ratio Glucose POC Glucose Lactate Calcium Magnesium Troponin I High Sens Free T4 09/04/24 09/04/24 09/04/24 07:59 07:59 07:59 WBC RBC Hgb Hct MCV MCH MCHC RDW Std Deviation RDW Coeff of Gilbert Plt Count MPV Absolute Nucleated RBC Nucleated RBC % (auto) Sodium Potassium Chloride Carbon Dioxide Anion Gap BUN 48 H Creatinine 2.06 H 2.03 H Est Cr Clr Drug Dosing 26.7 27.1 eGFR 30.22 BUN/Creatinine Ratio Glucose POC Glucose Lactate Calcium Magnesium Troponin I High Sens Free T4 09/04/24 09/04/24 09/04/24 07:59 07:59 07:59 WBC RBC Hgb Hct MCV MCH MCHC RDW Std Deviation RDW Coeff of Gilbert Plt Count MPV Absolute Nucleated RBC Nucleated RBC % (auto) Sodium Potassium Chloride Carbon Dioxide Anion Gap BUN Creatinine Est Cr Clr Drug Dosing eGFR 30.76 BUN/Creatinine Ratio 23.3 H 23.6 H Glucose 93 93 POC Glucose Lactate Calcium 8.7 Magnesium Troponin I High Sens Free T4 09/04/24 09/04/24 09/04/24 07:59 11:54 16:56 WBC RBC Hgb Hct MCV MCH MCHC RDW Std Deviation RDW Coeff of Gilbert Plt Count MPV Absolute Nucleated RBC Nucleated RBC % (auto) Sodium Potassium Chloride Carbon Dioxide Anion Gap BUN Creatinine Est Cr Clr Drug Dosing eGFR BUN/Creatinine Ratio Glucose POC Glucose 190 H 82 Lactate Calcium 8.7 Magnesium 2.0 Troponin I High Sens 114.9 H* Free T4 1.22 09/04/24 09/05/24 09/05/24 20:13 08:09 08:10 WBC 3.79 L RBC 2.93 L Hgb 10.3 L Hct 29.4 L MCV 100.3 H MCH 35.2 H MCHC 35.0 RDW Std Deviation 68.4 H RDW Coeff of Gilbert 18.6 H Plt Count 66 L MPV 10.9 Absolute Nucleated RBC 0.02 Nucleated RBC % (auto) 0.5 Sodium 136 Potassium 3.8 Chloride 100 Carbon Dioxide 28 Anion Gap 8 BUN 53 H Creatinine 2.09 H Est Cr Clr Drug Dosing 22.8 eGFR 29.70 BUN/Creatinine Ratio 25.4 H Glucose 70 POC Glucose 112 H 81 Lactate Calcium 8.4 L Magnesium 1.9 Troponin I High Sens Free T4 09/05/24 09/05/24 09/05/24 08:54 11:59 17:26 WBC RBC Hgb Hct MCV MCH MCHC RDW Std Deviation RDW Coeff of Gilbert Plt Count MPV Absolute Nucleated RBC Nucleated RBC % (auto) Sodium 137 Potassium 4.0 Chloride 99 Carbon Dioxide 29 Anion Gap 9 BUN 51 H Creatinine 2.17 H Est Cr Clr Drug Dosing 22.0 eGFR 28.39 BUN/Creatinine Ratio 23.5 H Glucose 118 H POC Glucose 263 H 69 L* Lactate 1.2 Calcium 8.6 Magnesium Troponin I High Sens 131.2 H* Free T4 09/05/24 09/05/24 09/06/24 17:26 20:31 07:50 WBC 3.96 L RBC 3.00 L Hgb 10.5 L Hct 29.8 L MCV 99.3 MCH 35.0 H MCHC 35.2 RDW Std Deviation 66.9 H RDW Coeff of Gilbert 18.2 H Plt Count 71 L MPV 11.2 Absolute Nucleated RBC Nucleated RBC % (auto) Sodium 136 Potassium 3.8 Chloride 98 Carbon Dioxide 30 Anion Gap 8 BUN 51 H Creatinine 2.02 H Est Cr Clr Drug Dosing 23.9 eGFR 30.94 BUN/Creatinine Ratio 25.2 H Glucose 73 POC Glucose 67 L* 119 H Lactate Calcium 8.3 L Magnesium Troponin I High Sens Free T4 09/06/24 09/06/24 08:21 12:10 WBC RBC Hgb Hct MCV MCH MCHC RDW Std Deviation RDW Coeff of Gilbert Plt Count MPV Absolute Nucleated RBC Nucleated RBC % (auto) Sodium Potassium Chloride Carbon Dioxide Anion Gap BUN Creatinine Est Cr Clr Drug Dosing eGFR BUN/Creatinine Ratio Glucose POC Glucose 85 185 H Lactate Calcium Magnesium Troponin I High Sens Free T4 Diagnostic Findings Chest X-Ray 09/02/24 16:09 Clinical History: Dyspnea Technique: A frontal view of the chest was obtained Comparison is made to the prior examination dated 08/07/2024 Findings: There is worsened right lower lobe opacity, concerning for pneumonia. There is diffuse interstitial prominence, concerning for mild pulmonary edema. The heart size is at the upper limit of normal. No definite left pleural effusion or pneumothorax is seen. There is a small right frontal effusion No fracture is noted. No foreign body is seen Impression: 1. Suspected combination of pulmonary edema and right lower lobe pneumonia 2. Small right pleural effusion ACT 112: Positive. There are findings on this exam that require communication between the performing entity and the patient following Patient Test Result Information Act ([place] ACT 112) guidelines. Electronically signed by Mark Hanks 09-02-2024 4:58 PM Pelvis X-Ray 09/02/24 16:10 Clinical History: Fall 2 views of the pelvis are submitted for review. Comparison is made to the prior examination dated 08/07/2024 Findings: There are unchanged old fractures of the left superior and inferior pubic rami. No definite acute fracture is seen. There are bilateral total hip arthroplasties in expected position. There is no definite sign of infection or loosening. No other osseous abnormality is identified. There are no radiopaque foreign bodies. Impression: 1. Bilateral hip replacements 2. Old pubic rami fractures 3. No definite acute fracture Electronically signed by Mark Hanks 09-02-2024 4:56 PM Venous Doppler Study 09/03/24 10:50 BILATERAL LOWER EXTREMITY VENOUS DOPPLER HISTORY: Acute pain and swelling of the lower legs eval dvt COMPARISON STUDY: None. FINDINGS: Study is limited secondary to subcutaneous edema. There is normal compressibility, flow, and augmentation within the bilateral lower extremity deep venous systems. IMPRESSION: Subcutaneous edema without DVT identified within the right or left lower extremity. ACT 112: Negative or not required by law. Electronically signed by: Jose Garza M.D. 09/03/2024 11:44 AM Medications Administered Current Inpatient Medications Atorvastatin Calcium (Atorvastatin 10 Mg Tab) 10 mg PO QAM [facility] Stop: 10/03/24 08:59 Last Admin: 09/06/24 08:22 Dose: 10 mg Buspirone HCl (Buspirone 5 Mg Tab) 5 mg PO HS PRN PRN Reason: sleep Stop: 10/02/24 20:12 Clonazepam (Clonazepam 0.5 Mg Tab) 0.5 mg PO HS PRN PRN Reason: Insomnia Stop: 10/02/24 20:12 Cyanocobalamin (Cyanocobalamin (B-12) 2,500 Mcg Tablet) 2,500 mcg PO Q2D@0900 [facility] Stop: 10/03/24 08:59 Last Admin: 09/05/24 08:27 Dose: 2,500 mcg Dextrose (Dextrose 50% 50 Ml Syringe) 25 - 50 ml IV UD PRN; Protocol PRN Reason: Hypoglycemia Protocol Stop: 10/02/24 20:12 Docusate Sodium (Docusate Sodium 100 Mg Cap) 200 mg PO DAILY [facility] Stop: 10/03/24 08:59 Last Admin: 09/06/24 08:22 Dose: 200 mg Furosemide (Furosemide 40 Mg/4 Ml Vial) 40 mg IV DAILY [facility] Stop: 10/06/24 08:59 Last Admin: 09/06/24 08:22 Dose: 40 mg Glucagon (Glucagon For Inj 1 Mg Vial) 1 mg SQ UD PRN; Protocol PRN Reason: Hypoglycemia Protocol Stop: 10/02/24 20:12 Glucose (Glucose 40% Gel 15 Gm Tube) 15 - 30 gm PO UD PRN; Protocol PRN Reason: Hypoglycemia Protocol Stop: 10/02/24 20:12 Glucose (Glucose 10 Tab/Tube) 4 - 8 tab PO UD PRN; Protocol PRN Reason: Hypoglycemia Protocol Stop: 10/02/24 20:12 Heparin Sodium (Porcine) (Heparin Sod 5,000 Unit/0.5 Ml Vial) 5,000 units SQ Q12 [facility] Stop: 10/02/24 20:59 Last Admin: 09/06/24 08:22 Dose: 5,000 units Ceftriaxone Sodium (Rocephin) 1,000 mg in 50 mls @ 100 mls/hr IV Q24H [facility] Stop: 09/08/24 06:59 Last Infusion: 09/06/24 09:04 Dose: Infused Metronidazole (Flagyl) 500 mg in 100 mls @ 100 mls/hr IV Q8H [facility]; Protocol Stop: 09/16/24 13:29 Insulin Aspart (Insulin Aspart Per Unit Charge) 0 units SC ACHS [facility] Stop: 10/02/24 20:59 Last Admin: 09/06/24 12:47 Dose: 2 units Lactulose (Lactulose Syrup 30 Gm/45 Ml Udp) 30 gm PO BID [facility] Stop: 09/07/24 22:44 Last Admin: 09/06/24 10:41 Dose: 30 gm Levothyroxine Sodium (Levothyroxine Sodium 75 Mcg Tablet) 75 mcg PO DAILYBB [facility] Stop: 10/03/24 06:29 Last Admin: 09/06/24 05:36 Dose: 75 mcg Metoprolol Tartrate (Metoprolol Tartrate 25 Mg Tab) 25 mg PO Q12 [facility] Stop: 10/02/24 20:59 Last Admin: 09/06/24 08:23 Dose: 25 mg Miscellaneous (Carbohydrates For Hypoglycemia ) 15 - 30 gm PO UD PRN PRN Reason: Hypoglycemia Protocol Stop: 10/02/24 20:12 Nitroglycerin (Nitroglycerin Sl 0.4 Mg/Tab Tab) 0.4 mg SL Q5M PRN PRN Reason: Chest Pain Stop: 10/02/24 20:12 Ondansetron HCl (Ondansetron Inj 2 Mg/Ml 2 Ml Vial) 4 mg IV Q6H PRN PRN Reason: Nausea Stop: 10/02/24 20:12 Polyethylene Glycol (Polyethylene (Miralax) 17 Gm Pack) 17 gm PO DAILY [facility] Stop: 10/06/24 08:59 Last Admin: 09/06/24 08:23 Dose: 17 gm Sennosides (Senna 8.6 Mg Tab) 17.2 mg PO QAM [facility] Stop: 10/06/24 10:44 Last Admin: 09/06/24 10:41 Dose: 17.2 mg PG Care Time/CCT Total # of Minutes Spent Total Time Spent with Patient: Total time spent is greater than 50% in coordination of care (as documented) at patient's floor/unit and/or counseling patient: Coding Level of Care Code 84876 SUB INP/OBS CARE 50MIN Diagnoses Heart failure with improved ejection fraction (HFimpEF) I50.32 CLL (chronic lymphocytic leukemia) C91.10 Type 2 diabetes mellitus E11.9 Chronic kidney disease, stage III (moderate) N18.30 Time Spent (min) 50
[2024-09-06] MEDS: metroNIDAZOLE 500 MG/100 ML BAG IV SCH (13:58)
--- NOTE | 2024-09-06 13:58 | XRay Report ---
XR chest 1V portable CLINICAL HISTORY: low BP, r/o PNA COMPARISON STUDY: 09/02/2024 FINDINGS: Stable cardiomegaly without pulmonary vascular congestion. Stable hazy opacity at the right lung base with obscuration of the diaphragm. No pneumothorax. IMPRESSION: Stable opacity at the right lung base could represent pneumonia, atelectasis, or small r ight pleural effusion. ACT 112: Negative or not required by law. Electronically signed by: Nadir Colon M.D. 09/06/2024 1:57 PM
[2024-09-07 06:57] LABS: Hematocrit (blood only) 31.4 % (42.0-52.0); Hemoglobin 10.8 g/dl (14.0-18.0); Mean Corpuscular Hemoglobin 34.7 pg (25.0-34.0); Mean Corpuscular Hgb Conc 34.4 g/dL (32.0-36.0); Mean Platelet Volume 11.2 fL (9.4-12.4); Platelet Count 68 K/uL (130-400); RDW Coefficient of Variation 18.1 % (11.5-14.5); RDW Standard Deviation 67.1 fL (36.4-46.3); Red Blood Count 3.11 M/uL (4.70-6.10); White Blood Count 4.38 K/ul (4.8-10.8)
[2024-09-07 07:24] LABS: BUN Creatinine Ratio 24.4 (10-20); Calcium 8.2 mg/dl (8.6-10.3); Creatinine Clr Calc Pharmacy 23.9 ml/min; Potassium 3.7 mmol/L (3.5-5.1)
[2024-09-07] MEDS: LACTULOSE 200GM/700ML WTR ENEMA PR SCH (14:27)
--- NOTE | 2024-09-07 14:56 | Hospitalist Progress Note ---
Date of Service September 07, 2024 Assessment & Plan (1) Heart failure with improved ejection fraction (HFimpEF): (2) CLL (chronic lymphocytic leukemia): (3) Type 2 diabetes mellitus: (4) Chronic kidney disease, stage III (moderate): Plan 89-year-old male with PMH of CHF, CKD, falling episode, recently discharged from our facility in July for syncope event; and has his blood thinner held given frequent fall on this admission,present with leg edema, scrotal edema and concern for CHF exacerbation, and noted to has right heart dysfunction metoprolol reduce from 100mg daily to 25 BID CHF exacerbation (leg edema, scrotal edema) hypotension, hypothermia constipation troponin elevation hx of CLL chronic kidney disease (baseline creatinine of 2.0--2.1) hyponatremia fall episodes A-fib of AC (given falling episode) Overall plan today he still has hypothermia but declining antibiotics he's doies not want to go to [facility] and in fact, requesting to be discharge risk of , infection explained still has leg edema (volume overload + lymphademia) however, frequent falls and limited up-titrate of his diuretics. hypothermia episode he's declined ceftriaxone overnight we discussed that can be sign of infection. but he's argue that he's always has hypothermia risk of ; infection explained #Heart failure preserved ejection fraction. c/w with lasix 40mg IV daily given low BP he's still has significant scrotal edema and leg edema constipation-miralax daily; continue lactulose on lactulose suppository troponin elevation-demand ischemia no chest pain No shortness of breath #Diabetes- off med at this point #Hypothyroidism-synthyroid DVT prevention will be heparin therapy renal dose adjusted, patient has a history of CLL Admission and Anticipated Discharge Date Admission Date: September 02, 2024 Subjective leg swelling persist Decline antibiotic overnight, despite hypothermic He explained that he is always have hypothermic episode We discussed that he is at risk for infection He does not want to remain in the hospital anymore, PT recommends short-term rehab But he requested to go home Review of Systems Review of Systems: Constitutional: No Weight Change, No Fever, No Chills, No Night Sweats, No Fatigue, No Malaise Cardiovascular: No Chest Pain, No SOB, No PND, No Dyspnea on Exertion, No Orthopnea, No Claudication, No Edema, No Palpitations Respiratory: No Cough, No Sputum, No Wheezing, No Smoke Exposure, No Dyspnea Gastrointestinal: No Nausea, No Vomiting, No Diarrhea,, No Pain, No Heartburn, No Anorexia, No Dysphagia, No Hematochezia, No Melena, No Flatulence, No Jaundice + for constipation Musculoskeletal: leg edema Physical Exam Physical Exam: VITALS: Reviewed. WEIGHT/BMI reviewed. GEN: Healthy appearing, well-developed, NAD. -Head: NC/AT; -Eyes: PERRL, EOMI. No discharge or redn ess; CV: RRR, no m/r/g. LUNGS: CTAB, no w/r/c. ABD: Soft, NT/ND, NBS, no masses or organomegaly. MSK: + for edema NEURO: Ambulating with no limitations. Normal muscle strength and tone. No focal deficits. Results & Data Results & Data Vital Signs (Past 12 Hours) Vital Signs Temp Pulse Pulse Resp BP Pulse Ox O2 Del Method 09/07/24 12:32 36.5 C 80 20 97/58 L 97 Room Air 09/07/24 12:06 Room Air 09/07/24 07:32 36.3 C L 78 16 101/64 99 Room Air 09/07/24 07:00 78 09/07/24 05:27 36.3 C L 79 20 98/65 L 96 Room Air Laboratory Results Laboratory Results - last 72 hr 09/04/24 09/04/24 09/05/24 16:56 20:13 08:09 WBC RBC Hgb Hct MCV MCH MCHC RDW Std Deviation RDW Coeff of Gilbert Plt Count MPV Absolute Nucleated RBC Nucleated RBC % (auto) Sodium Potassium Chloride Carbon Dioxide Anion Gap BUN Creatinine Est Cr Clr Drug Dosing eGFR BUN/Creatinine Ratio Glucose POC Glucose 82 112 H 81 Lactate Calcium Magnesium Troponin I High Sens 09/05/24 09/05/24 09/05/24 08:10 08:54 11:59 WBC 3.79 L RBC 2.93 L Hgb 10.3 L Hct 29.4 L MCV 100.3 H MCH 35.2 H MCHC 35.0 RDW Std Deviation 68.4 H RDW Coeff of Gilbert 18.6 H Plt Count 66 L MPV 10.9 Absolute Nucleated RBC 0.02 Nucleated RBC % (auto) 0.5 Sodium 136 137 Potassium 3.8 4.0 Chloride 100 99 Carbon Dioxide 28 29 Anion Gap 8 9 BUN 53 H 51 H Creatinine 2.09 H 2.17 H Est Cr Clr Drug Dosing 22.8 22.0 eGFR 29.70 28.39 BUN/Creatinine Ratio 25.4 H 23.5 H Glucose 70 118 H POC Glucose 263 H Lactate 1.2 Calcium 8.4 L 8.6 Magnesium 1.9 Troponin I High Sens 131.2 H* 09/05/24 09/05/24 09/05/24 17:26 17:26 20:31 WBC RBC Hgb Hct MCV MCH MCHC RDW Std Deviation RDW Coeff of Gilbert Plt Count MPV Absolute Nucleated RBC Nucleated RBC % (auto) Sodium Potassium Chloride Carbon Dioxide Anion Gap BUN Creatinine Est Cr Clr Drug Dosing eGFR BUN/Creatinine Ratio Glucose POC Glucose 69 L* 67 L* 119 H Lactate Calcium Magnesium Troponin I High Sens 09/06/24 09/06/24 09/06/24 07:50 08:21 12:10 WBC 3.96 L RBC 3.00 L Hgb 10.5 L Hct 29.8 L MCV 99.3 MCH 35.0 H MCHC 35.2 RDW Std Deviation 66.9 H RDW Coeff of Gilbert 18.2 H Plt Count 71 L MPV 11.2 Absolute Nucleated RBC Nucleated RBC % (auto) Sodium 136 Potassium 3.8 Chloride 98 Carbon Dioxide 30 Anion Gap 8 BUN 51 H Creatinine 2.02 H Est Cr Clr Drug Dosing 23.9 eGFR 30.94 BUN/Creatinine Ratio 25.2 H Glucose 73 POC Glucose 85 185 H Lactate Calcium 8.3 L Magnesium Troponin I High Sens 09/06/24 09/06/24 09/07/24 16:45 20:45 06:09 WBC 4.38 L RBC 3.11 L Hgb 10.8 L Hct 31.4 L MCV 101.0 H MCH 34.7 H MCHC 34.4 RDW Std Deviation 67.1 H RDW Coeff of Gilbert 18.1 H Plt Count 68 L MPV 11.2 Absolute Nucleated RBC Nucleated RBC % (auto) Sodium 136 Potassium 3.7 Chloride 98 Carbon Dioxide 33 H Anion Gap 5 BUN 48 H Creatinine 1.97 H Est Cr Clr Drug Dosing 23.9 eGFR 31.89 BUN/Creatinine Ratio 24.4 H Glucose 91 POC Glucose 82 133 H Lactate Calcium 8.2 L Magnesium Troponin I High Sens 09/07/24 12:16 WBC RBC Hgb Hct MCV MCH MCHC RDW Std Deviation RDW Coeff of Gilbert Plt Count MPV Absolute Nucleated RBC Nucleated RBC % (auto) Sodium Potassium Chloride Carbon Dioxide Anion Gap BUN Creatinine Est Cr Clr Drug Dosing eGFR BUN/Creatinine Ratio Glucose POC Glucose 222 H Lactate Calcium Magnesium Troponin I High Sens Diagnostic Findings Chest X-Ray 09/02/24 16:09 Clinical History: Dyspnea Technique: A frontal view of the chest was obtained Comparison is made to the prior examination dated 08/07/2024 Findings: There is worsened right lower lobe opacity, concerning for pneumonia. There is diffuse interstitial prominence, concerning for mild pulmonary edema. The heart size is at the upper limit of normal. No definite left pleural effusion or pneumothorax is seen. There is a small right frontal effusion No fracture is noted. No foreign body is seen Impression: 1. Suspected combination of pulmonary edema and right lower lobe pneumonia 2. Small right pleural effusion ACT 112: Positive. There are findings on this exam that require communication between the performing entity and the patient following Patient Test Result Information Act ([place] ACT 112) guidelines. Electronically signed by Mark Hanks 09-02-2024 4:58 PM Pelvis X-Ray 09/02/24 16:10 Clinical History: Fall 2 views of the pelvis are submitted for review. Comparison is made to the prior examination dated 08/07/2024 Findings: There are unchanged old fractures of the left superior and inferior pubic rami. No definite acute fracture is seen. There are bilateral total hip arthroplasties in expected position. There is no definite sign of infection or loosening. No other osseous abnormality is identified. There are no radiopaque foreign bodies. Impression: 1. Bilateral hip replacements 2. Old pubic rami fractures 3. No definite acute fracture Electronically signed by Mark Hanks 09-02-2024 4:56 PM Venous Doppler Study 09/03/24 10:50 BILATERAL LOWER EXTREMITY VENOUS DOPPLER HISTORY: Acute pain and swelling of the lower legs eval dvt COMPARISON STUDY: None. FINDINGS: Study is limited secondary to subcutaneous edema. There is normal compressibility, flow, and augmentation within the bilateral lower extremity deep venous systems. IMPRESSION: Subcutaneous edema without DVT identified within the right or left lower extremity. ACT 112: Negative or not required by law. Electronically signed by: Jose Garza M.D. 09/03/2024 11:44 AM Chest X-Ray 09/06/24 13:23 XR chest 1V portable CLINICAL HISTORY: low BP, r/o PNA COMPARISON STUDY: 09/02/2024 FINDINGS: Stable cardiomegaly without pulmonary vascular congestion. Stable hazy opacity at the right lung base with obscuration of the diaphragm. No pneumothorax. IMPRESSION: Stable opacity at the right lung base could represent pneumonia, atelectasis, or small right pleural effusion. ACT 112: Negative or not required by law. Electronically signed by: Nadir Colon M.D. 09/06/2024 1:57 PM Medications Administered Current Inpatient Medications Atorvastatin Calcium (Atorvastatin 10 Mg Tab) 10 mg PO QAM NELLI Stop: 10/03/24 08:59 Last Admin: 09/07/24 09:25 Dose: 10 mg Buspirone HCl (Buspirone 5 Mg Tab) 5 mg PO HS PRN PRN Reason: sleep Stop: 10/02/24 20:12 Clonazepam (Clonazepam 0.5 Mg Tab) 0.5 mg PO HS PRN PRN Reason: Insomnia Stop: 10/02/24 20:12 Cyanocobalamin (Cyanocobalamin (B-12) 2,500 Mcg Tablet) 2,500 mcg PO Q2D@0900 NELLI Stop: 10/03/24 08:59 Last Admin: 09/07/24 09:25 Dose: 2,500 mcg Dextrose (Dextrose 50% 50 Ml Syringe) 25 - 50 ml IV UD PRN; Protocol PRN Reason: Hypoglycemia Protocol Stop: 10/02/24 20:12 Docusate Sodium (Docusate Sodium 100 Mg Cap) 200 mg PO DAILY NELLI Stop: 10/03/24 08:59 Last Admin: 09/07/24 09:38 Dose: 200 mg Furosemide (Furosemide 40 Mg/4 Ml Vial) 40 mg IV DAILY NELLI Stop: 10/06/24 08:59 Last Admin: 09/07/24 09:33 Dose: 40 mg Glucagon (Glucagon For Inj 1 Mg Vial) 1 mg SQ UD PRN; Protocol PRN Reason: Hypoglycemia Protocol Stop: 10/02/24 20:12 Glucose (Glucose 40% Gel 15 Gm Tube) 15 - 30 gm PO UD PRN; Protocol PRN Reason: Hypoglycemia Protocol Stop: 10/02/24 20:12 Glucose (Glucose 10 Tab/Tube) 4 - 8 tab PO UD PRN; Protocol PRN Reason: Hypoglycemia Protocol Stop: 10/02/24 20:12 Heparin Sodium (Porcine) (Heparin Sod 5,000 Unit/0.5 Ml Vial) 5,000 units SQ Q12 NELLI Stop: 10/02/24 20:59 Last Admin: 09/07/24 09:33 Dose: 5,000 units Ceftriaxone Sodium (Rocephin) 1,000 mg in 50 mls @ 100 mls/hr IV Q24H NELLI Stop: 09/08/24 06:59 Last Admin: 09/07/24 09:24 Dose: 100 mls/hr Metronidazole (Flagyl) 500 mg in 100 mls @ 100 mls/hr IV Q8H [facility]; Protocol Stop: 09/16/24 13:29 Last Admin: 09/07/24 05:20 Dose: Not Given Insulin Aspart (Insulin Aspart Per Unit Charge) 0 units SC ACHS NELLI Stop: 10/02/24 20:59 Last Admin: 09/07/24 14:27 Dose: 4 units Lactulose (Lactulose Syrup 30 Gm/45 Ml Udp) 30 gm PO BID NELLI Stop: 09/07/24 22:44 Last Admin: 09/07/24 09:36 Dose: Not Given Lactulose (Lactulose 200gm/700ml Wtr Enema) 200 gm VA Q8H NELLI Stop: 09/08/24 11:59 Last Admin: 09/07/24 14:27 Dose: 200 gm Levothyroxine Sodium (Levothyroxine Sodium 75 Mcg Tablet) 75 mcg PO DAILYBB NELLI Stop: 10/03/24 06:29 Last Admin: 09/07/24 05:20 Dose: 75 mcg Metoprolol Tartrate (Metoprolol Tartrate 25 Mg Tab) 25 mg PO Q12 NELLI Stop: 10/02/24 20:59 Last Admin: 09/07/24 09:25 Dose: 25 mg Miscellaneous (Carbohydrates For Hypoglycemia ) 15 - 30 gm PO UD PRN PRN Reason: Hypoglycemia Protocol Stop: 10/02/24 20:12 Nitroglycerin (Nitroglycerin Sl 0.4 Mg/Tab Tab) 0.4 mg SL Q5M PRN PRN Reason: Chest Pain Stop: 10/02/24 20:12 Ondansetron HCl (Ondansetron Inj 2 Mg/Ml 2 Ml Vial) 4 mg IV Q6H PRN PRN Reason: Nausea Stop: 10/02/24 20:12 Polyethylene Glycol (Polyethylene (Miralax) 17 Gm Pack) 17 gm PO DAILY NELLI Stop: 10/06/24 08:59 Last Admin: 09/07/24 09:25 Dose: 17 gm Sennosides (Senna 8.6 Mg Tab) 17.2 mg PO QAM [facility] Stop: 10/06/24 10:44 Last Admin: 09/07/24 09:33 Dose: 17.2 mg PG Care Time/CCT Total # of Minutes Spent Total Time Spent with Patient: Total time spent is greater than 50% in coordination of care (as documented) at patient's floor/unit and/or counseling patient: Coding Level of Care Code 01147 SUB INP/OBS CARE 3/50MIN Diagnoses Heart failure with improved ejection fraction (HFimpEF) I50.32 CLL (chronic lymphocytic leukemia) C91.10 Type 2 diabetes mellitus E11.9 Chronic kidney disease, stage III (moderate) N18.30 Time Spent (min) 50
[2024-09-07] MEDS: CARBOHYDRATES FOR HYPOGLYCEMIA PO PRN (17:34)
[2024-09-08 06:28] LABS: Hematocrit (blood only) 32.8 % (42.0-52.0); Mean Corpuscular Hemoglobin 34.1 pg (25.0-34.0); Mean Corpuscular Hgb Conc 33.5 g/dL (32.0-36.0); Mean Corpuscular Volume 101.5 fL (80.0-100.0); Platelet Count 65 K/uL (130-400); RDW Coefficient of Variation 17.2 % (11.5-14.5); RDW Standard Deviation 64.4 fL (36.4-46.3); Red Blood Count 3.23 M/uL (4.70-6.10); White Blood Count 4.74 K/ul (4.8-10.8)
[2024-09-08 06:58] LABS: BUN Creatinine Ratio 25.9 (10-20); Calcium 8.5 mg/dl (8.6-10.3); Creatinine Clr Calc Pharmacy 29.7 ml/min; Potassium 4.6 mmol/L (3.5-5.1)
--- NOTE | 2024-09-08 14:30 | Hospitalist Progress Note ---
Date of Service September 08, 2024 Assessment & Plan (1) Heart failure with improved ejection fraction (HFimpEF): (2) CLL (chronic lymphocytic leukemia): (3) Type 2 diabetes mellitus: (4) Chronic kidney disease, stage III (moderate): Plan 89-year-old male with PMH of CHF, CKD, falling episode, recently discharged from our facility in July for syncope event; and has his blood thinner held given frequent fall on this admission,present with leg edema, scrotal edema and concern for CHF exacerbation, and noted to has right heart dysfunction metoprolol reduce from 100mg daily to 25 BID CHF exacerbation (leg edema, scrotal edema) hypotension, hypothermia constipation troponin elevation hx of CLL chronic kidney disease (baseline creatinine of 2.0--2.1) hyponatremia fall episodes A-fib of AC (given falling episode) Overall plan today he is able to ambulate around the hallway 2-3 times today with walker we discussed he need specialized stocking for his lymphadema low dose bumex today he does not want antibiotics, stated his low temperature is his chronic finding can give midodrine for orhostatic hypothermia episode he does not want antibiotics, stated low temperature is his chronic finding risk of infection and explained lymphedema suspect this is partly volume overload but underlying lymphedema discussed usage of compression stocking #Heart failure preserved ejection fraction. c/w with lasix 40mg IV daily given low BP he's still has significant scrotal edema and leg edema constipation- resolved after lactulose suppositoiry on 09/07 miralax troponin elevation-demand ischemia no chest pain No shortness of breath #Diabetes- off med at this point #Hypothyroidism-synthyroid DVT prevention will be heparin therapy renal dose adjusted, patient has a history of CLL Admission and Anticipated Discharge Date Admission Date: September 02, 2024 Subjective his constipation resolved able to ambulate 2-3 laps today with walker no other distress discussed usage of lymphedema stocking AAox3 likely going home tomorrow with home services Review of Systems Review of Systems: Constitutional: No Weight Change, No Fever, No Chills Cardiovascular: No Chest Pain, No SOB, No PND, No Dyspnea on Exertion, No Orthopnea, No Claudication, No Edema, No Palpitations Respiratory: No Cough, No Sputum, No Wheezing, No Smoke Exposure, No Dyspnea Gastrointestinal: No Nausea, No Vomiting constipation resolved; bloating Genitourinary: scrotal edema improvied Musculoskeletal: leg edema persistent Skin: No Skin Lesions, No Pruritis, No Hair Changes, No Breast/Skin Changes, No Nipple Discharge Neuro: No Weakness, No Numbness, No Paresthesias, No Loss of Consciousness, No Syncope, No Dizziness, No Headache, No Coordination Changes, No Recent Falls Psych: No Anxiety/Panic, No Depression, No Insomnia, No Personality Changes, No Delusions, No Rumination, No SI/HI/AH/VH, No Social Issues, No Memory Changes, No Violence/Abuse Hx., No Eating Concerns Endocrine: No Polyuria, No Polydipsia, No Temperature Intolerance Physical Exam Physical Exam: VITALS: Reviewed. WEIGHT/BMI reviewed. GEN: chronically ill appearing; non-toxic -Head: NC/AT; -Eyes: PERRL, EOMI. No discharge or redn ess; -Ears: External ears are normal. Normal TMs. NECK: Supple, with no masses. CV: RRR, no m/r/g. LUNGS: CTAB, no w/r/c; decreased breath sound ABD: Soft, NT/ND, NBS, no masses or organomegaly. : N/A SKIN: Warm, well perfused. No skin rashes or abnormal lesions. MSK: +for leg edema; + for knee arthritis; + for bruising around right leg EXT: No clubbing, cyanosis, or edema. NEURO AAOx3 Results & Data Results & Data Vital Signs (Past 12 Hours) Vital Signs Temp Pulse Pulse Resp BP BP Pulse Ox 09/08/24 12:08 36.2 C L 78 16 105/69 99 09/08/24 11:36 09/08/24 08:50 115/70 09/08/24 07:45 36.2 C L 78 16 96/63 L 96 09/08/24 07:30 78 09/08/24 03:18 36.2 C L 78 16 96/60 L 95 O2 Del Method 09/08/24 12:08 Room Air 09/08/24 11:36 Room Air 09/08/24 08:50 09/08/24 07:45 Room Air 09/08/24 07:30 09/08/24 03:18 Room Air Laboratory Results Abnormal lab results 09/07/24 09/07/24 09/07/24 Range/Units 17:29 17:30 20:09 WBC (4.8-10.8) K/ul RBC (4.70-6.10) M/uL Hgb (14.0-18.0) g/dl Hct (42.0-52.0) % MCV (80.0-100.0) fL MCH (25.0-34.0) pg RDW Std Deviation (36.4-46.3) fL RDW Coeff of Gilbert (11.5-14.5) % Plt Count (130-400) K/uL Sodium (136-145) mmol/L Chloride (98-107) mmol/L Carbon Dioxide (21-32) mmol/L BUN (6-23) mg/dl Creatinine (0.6-1.4) mg/dl BUN/Creatinine Ratio (10-20) POC Glucose 67 L* 66 L* 145 H (70-99) mg/dl Calcium (8.6-10.3) mg/dl 09/08/24 09/08/24 Range/Units 05:57 12:24 WBC 4.74 L (4.8-10.8) K/ul RBC 3.23 L (4.70-6.10) M/uL Hgb 11.0 L (14.0-18.0) g/dl Hct 32.8 L (42.0-52.0) % MCV 101.5 H (80.0-100.0) fL MCH 34.1 H (25.0-34.0) pg RDW Std Deviation 64.4 H (36.4-46.3) fL RDW Coeff of Gilbert 17.2 H (11.5-14.5) % Plt Count 65 L (130-400) K/uL Sodium 133 L (136-145) mmol/L Chloride 95 L (98-107) mmol/L Carbon Dioxide 35 H (21-32) mmol/L BUN 48 H (6-23) mg/dl Creatinine 1.85 H (0.6-1.4) mg/dl BUN/Creatinine Ratio 25.9 H (10-20) POC Glucose 152 H (70-99) mg/dl Calcium 8.5 L (8.6-10.3) mg/dl Medications Administered Current Inpatient Medications Atorvastatin Calcium (Atorvastatin 10 Mg Tab) 10 mg PO QAM NELLI Stop: 10/03/24 08:59 Last Admin: 09/08/24 08:34 Dose: 10 mg Buspirone HCl (Buspirone 5 Mg Tab) 5 mg PO HS PRN PRN Reason: sleep Stop: 10/02/24 20:12 Clonazepam (Clonazepam 0.5 Mg Tab) 0.5 mg PO HS PRN PRN Reason: Insomnia Stop: 10/02/24 20:12 Cyanocobalamin (Cyanocobalamin (B-12) 2,500 Mcg Tablet) 2,500 mcg PO Q2D@0900 NELLI Stop: 10/03/24 08:59 Last Admin: 09/07/24 09:25 Dose: 2,500 mcg Dextrose (Dextrose 50% 50 Ml Syringe) 25 - 50 ml IV UD PRN; Protocol PRN Reason: Hypoglycemia Protocol Stop: 10/02/24 20:12 Docusate Sodium (Docusate Sodium 100 Mg Cap) 200 mg PO DAILY NELLI Stop: 10/03/24 08:59 Last Admin: 09/08/24 08:45 Dose: 200 mg Furosemide (Furosemide 40 Mg/4 Ml Vial) 40 mg IV DAILY NELLI Stop: 10/06/24 08:59 Last Admin: 09/08/24 08:45 Dose: 40 mg Glucagon (Glucagon For Inj 1 Mg Vial) 1 mg SQ UD PRN; Protocol PRN Reason: Hypoglycemia Protocol Stop: 10/02/24 20:12 Glucose (Glucose 40% Gel 15 Gm Tube) 15 - 30 gm PO UD PRN; Protocol PRN Reason: Hypoglycemia Protocol Stop: 10/02/24 20:12 Glucose (Glucose 10 Tab/Tube) 4 - 8 tab PO UD PRN; Protocol PRN Reason: Hypoglycemia Protocol Stop: 10/02/24 20:12 Heparin Sodium (Porcine) (Heparin Sod 5,000 Unit/0.5 Ml Vial) 5,000 units SQ Q12 NELLI Stop: 10/02/24 20:59 Last Admin: 09/08/24 08:45 Dose: 5,000 units Metronidazole (Flagyl) 500 mg in 100 mls @ 100 mls/hr IV Q8H [facility]LLI; Protocol Stop: 09/16/24 13:29 Last Admin: 09/08/24 12:34 Dose: Not Given Insulin Aspart (Insulin Aspart Per Unit Charge) 0 units SC ACHS NELLI Stop: 10/02/24 20:59 Last Admin: 09/08/24 12:33 Dose: Not Given Levothyroxine Sodium (Levothyroxine Sodium 75 Mcg Tablet) 75 mcg PO DAILYBB [facility] Stop: 10/03/24 06:29 Last Admin: 09/08/24 05:36 Dose: 75 mcg Metoprolol Tartrate (Metoprolol Tartrate 25 Mg Tab) 25 mg PO Q12 NELLI Stop: 10/02/24 20:59 Last Admin: 09/08/24 08:50 Dose: 25 mg Miscellaneous (Carbohydrates For Hypoglycemia ) 15 - 30 gm PO UD PRN PRN Reason: Hypoglycemia Protocol Stop: 10/02/24 20:12 Last Admin: 09/07/24 17:34 Dose: 15 gm Nitroglycerin (Nitroglycerin Sl 0.4 Mg/Tab Tab) 0.4 mg SL Q5M PRN PRN Reason: Chest Pain Stop: 10/02/24 20:12 Ondansetron HCl (Ondansetron Inj 2 Mg/Ml 2 Ml Vial) 4 mg IV Q6H PRN PRN Reason: Nausea Stop: 10/02/24 20:12 Polyethylene Glycol (Polyethylene (Miralax) 17 Gm Pack) 17 gm PO DAILY NELLI Stop: 10/06/24 08:59 Last Admin: 09/08/24 08:44 Dose: 17 gm Sennosides (Senna 8.6 Mg Tab) 17.2 mg PO QAM [facility] Stop: 10/06/24 10:44 Last Admin: 09/08/24 08:44 Dose: 17.2 mg PG Care Time/CCT Total # of Minutes Spent Total Time Spent with Patient: Total time spent is greater than 50% in coordination of care (as documented) at patient's floor/unit and/or counseling patient: Coding Level of Care Code 90322 SUB INP/OBS CARE 2/35MIN Diagnoses Heart failure with improved ejection fraction (HFimpEF) I50.32 CLL (chronic lymphocytic leukemia) C91.10 Type 2 diabetes mellitus E11.9 Chronic kidney disease, stage III (moderate) N18.30
[2024-09-08] MEDS: BUMETANIDE 1 MG TAB PO ONE (15:04)
[2024-09-09 03:28] VITALS: TEMP 97.5
[2024-09-09 07:59] LABS: BUN Creatinine Ratio 23.4 (10-20); Calcium 8.5 mg/dl (8.6-10.3); Creatinine Clr Calc Pharmacy 29.2 ml/min; Potassium 4.8 mmol/L (3.5-5.1)
[2024-09-09 08:06] VITALS: PULSE 80; RESP 17; O2SAT 96
--- NOTE | 2024-09-09 08:54 | XRay Report ---
XR chest 1V portable CLINICAL HISTORY: eval for PNA COMPARISON STUDY: 09/06/2024 FINDINGS: There is stable cardiomegaly without pulmonary vascular congestion. There is mild hazy opac ity at the right base, improved. Otherwise the lungs remain aerated. IMPRESSION: Mild persistent opacity right lung base, improved. ACT 112: Negative or not required by law. Electronically signed by: Nadir Colon M.D. 09/09/2024 8:53 AM
[2024-09-09] MEDS: LACTULOSE 200GM/700ML WTR ENEMA PR ONE (09:46)
--- NOTE | 2024-09-09 11:25 | Advance Care Plan Prog Note ---
Advanced Care Planning Note Date of Discussion September 09, 2024 ACP Discussion Diagnoses requiring ACP discussion: [advance age, recurrent admission ] A [id number] discussion with the Maxwell Encinas (patient) regarding the patient's advanced care planning took place during this hospitalization on the above date. The discussion included the explanation and discussion of advance directives and associated forms/documents, as well as the patient's current code status. We also discussed at length the patient's medical conditions (both acute and chronic), general prognosis, treatment options, and goals of care. The following summarizes the discussion: he stated no intubation, no chest compression but agreeable for transfer to ICU if he's need pressor support or bipap. agreeable for being on HD he's willing to consider feeding tube if his health condition tolerated. he's designated his son for Healthcare decision maker. Advance Care Planning/Goals of Care Will continue to support the patient/family DPOA-HC/Surrogate Decision Maker son; Maxwell Encinas Status Resuscitation Status DNR/DNI No Resuscitation Total Time I spent a total of [15] minutes was spent on this discussion, including counseling, answering questions, and completing, if any, pertinent advanced care planning forms/documents.
[2024-09-09] MEDS: BUMETANIDE 1 MG in SYRINGE 0 ML IV ONE (11:27)
[2024-09-09 12:06] VITALS: BP 101/66
--- NOTE | 2024-09-10 12:33 | Coding Query ---
CONGESTIVE HEART FAILURE To Promote full compliance with coding requirements relating to patient care, physician participation is requested in all cases of voltage regulator assembler uncertainty. Please assist us with the following questions. The Discharge Summary has documentation of "Heart Failure with Improved Ejection Fraction (HFimpEF)", and CHF Exacerbation, and, " concern for CHF exacerbation, and noted to has right heart dysfunction", and the H&P has documentation as well of, "presents with what appears to be heart failure preserved ejection fraction with significant lower extreme edema chest x-ray changes and scrotal edema", and, "Heart failure preserved ejection fraction. This appears to be all the right heart failure patiently treated with parenteral Lasix therapy hopefully this will also help his hyperkalemia". To accurately code the heart failure, and to compare patient severity, we ask that you specify the type of heart failure by placing an X within the parenthesis (x). DIASTOLIC HEART FAILURE OR HEART FAILURE WITH PRESERVED EJECTION FRACTION ( ) Acute ( ) Chronic ( X ) Acute on Chronic ( ) Rheumatic ( ) Unknown RIGHT HEART FAILURE ( ) Acute ( ) Chronic ( X ) Acute on Chronic ( ) Rheumatic ( ) Unknown Thank you Denisha Tripp [facility]
== END 2024-09-09 14:10 | disposition home health service (06) | DRG 291 ==
LOC: EDSEX → ED 15:48 → SUATTDRO 19:23 → EDINP 19:23 → 2N 20:13

== ENCOUNTER 2024-10-19 14:35 | Observation (INO) ==
[2024-10-19 15:19] LABS: Basophils # (auto) 0.02 K/uL (0.00-0.20); Basophils % (auto) 0.4 %; Eosinophils # (auto) 0.08 K/uL (0.00-0.50); Eosinophils % (auto) 1.6 %; Hematocrit (blood only) 34.7 % (42.0-52.0); Hemoglobin 11.6 g/dl (14.0-18.0); Immature Granulocytes # (auto) 0.03 K/uL (0.01-0.20); Immature Granulocytes % (auto) 0.6 %; Lymphocytes # (auto) 0.73 K/uL (1.20-3.40); Lymphocytes % (auto) 14.5 %; Mean Corpuscular Hgb Conc 33.4 g/dL (32.0-36.0); Mean Corpuscular Volume 101.8 fL (80.0-100.0); Monocytes # (auto) 0.37 K/uL (0.11-0.59); Monocytes % (auto) 7.3 %; Neutrophils # (auto) 3.81 K/uL (1.40-6.50); Neutrophils % (auto) 75.6 %; Platelet Count 39 K/uL (130-400); RDW Coefficient of Variation 18.8 % (11.5-14.5); RDW Standard Deviation 68.7 fL (36.4-46.3); Red Blood Count 3.41 M/uL (4.70-6.10); White Blood Count 5.04 K/ul (4.8-10.8)
--- NOTE | 2024-10-19 15:26 | XRay Report ---
Chest radiograph, one view History: Weakness. Comparison: October 14, 2024. Findings: Patient rotated to the right. Calcified atherosclerotic changes of the thoracic aorta. Much improved aeration bilateral pulmonary bases with improved visualization of the hemidiaphragms. Persistent nonspecific prominent bilateral hilar reticular markings with poorly defined right costophrenic angle. Pulmonary vasculature is within normal limits. Impression: Significantly improved bibasilar nonspecific pulmonary opacities with persistently subsegmental atelectasis and questionable small right-sided pleural effusion. Lateral view would be helpful. Electronically signed by Naren Mac 10-19-2024 3:26 PM
[2024-10-19 15:32] LABS: Alanine Aminotransferase 31 U/L (7-52); Albumin Globulin Ratio 1.5 (0.9-2); Alkaline Phosphatase 110 U/L (34-104); Anion Gap 9 (3-11); Aspartate Aminotransferase 63 U/L (13-39); BUN Creatinine Ratio 28.6 (10-20); Blood Urea Nitrogen 64 mg/dl (6-23); Calcium 8.9 mg/dl (8.6-10.3); Carbon Dioxide 25 mmol/L (21-32); Chloride 99 mmol/L (98-107); Globulin 2.7 gm/dl (2.5-4.0); Glucose 145 mg/dl (70-99(Fasting)); Magnesium 3.2 mg/dl (1.7-2.4); Potassium 5.7 mmol/L (3.5-5.1); Sodium 133 mmol/L (136-145); Total Protein 6.7 gm/dl (6.0-8.3)
[2024-10-19 15:46] LABS: Thyroid Stimulating Hormone 7.414 uIu/ml (0.300-4.500)
--- NOTE | 2024-10-19 17:26 | History & Physical Report ---
Date of Service October 19, 2024 Assessment & Plan (1) Ambulatory dysfunction: (2) Chronic kidney disease, stage III (moderate): (3) Paroxysmal A-fib: (4) Thrombocytopenia: (5) Heart failure with improved ejection fraction (HFimpEF): (6) Ascites: Plan 89 year old male with a past medical history of HFimEF, DMT2, HTN, CKD, CLL, hypothyroidism, a fib on Eliquis that is presenting with ambulatory dysfunction. #Ambulatory Dysfunction - No acute change from when he was d/c - recently d/c PT/OT recommended acute rehab at that time and he declined - will to go to rehab now, PT/OT consult - CM consult #CKD Stage 3b - creatinine at recent baseline of about 1.9-2.2 - overall euvolic- slightly hypovolemic on exam - holding home Bumex #Hyperkalemia/Hypermagnesemia - etiology unclear - ?in the setting of CKD, although appears to be at recent baseline - no EKG changes of hyperkalemia - repeat BMP/Mg to ensure not hemolyzed - consider nephrology consult if remains elevated #Cirrhosis - etiology unclear - hepatitis panel was negative last admission - no signs of SBP - with tenuous fluid status hold on paracentesis at present #B/L LE edema - B/L and without calf tenderness - likely venous stasis in combination with cirrhosis - defer further dieresis at present with current fluid status #Thrombocytopenia - Plts= 39 on admission; have been below 100 over the past 6 months, as low as 26 10/14/24 - ?in the setting of cirrhosis - in on Eliquis in the setting of afib and that was continued - check PT/INR #HFpEF - follows with cardiology - euvolemic to slightly hypovolic in exam, hold Bumex #Pleural Effusion - S/p thoracentesis last admission with transudative fluid - to complete 5 day course of cefdinir for " lung fluid" - gram stain from thoracentesis was negative - 2 days ordered to complete course #Constipation - long standing issue - increase miralax to BID and adjust as needed; discussed increasing fluid intake History of Present Illness Primary Care Provider: Raffi Alva MD 89 year old male with a past medical history of HFimEF, DMT2, HTN, CKD, CLL, hypothyroidism, a fib on Eliquis that is presenting with ambulatory dysfunction. Was admitted from 10/11-10/16 with APPLE, R sided pleural effusion s/p thoracentesis that showed transudative fluid. Was recommended that he go to rehab after that admission, but declined. Now back presenting with son as has been having trouble with ADLs at home. No increased weakness or no symptoms since leaving the hospital. He states that he was hoping there would be improvement in his weakness when he left, but this was not the case. Lives alone in a 2 story house, although states he mainly states on the 1st floor. ED Course Significant for: K= 5.7, Creatine= 2.24 (recent baseline 1.9-2.2). Plts= 39. CXR with improvement on right side pleural effusion when compared with prior. Allergies Allergy/AdvReac Type Severity Reaction Status Date / Time Sulfa (Sulfonamide Allergy Intermediate HIVES Verified 10/19/24 16:13 Antibiotics) Home Medications Medication Instructions Recorded Confirmed Type mecobalamin (vitamin B12) 5,000 2,500 mcg (1/2 x 5,000 mcg) PO Q 03/29/23 10/19/24 Rx mcg disintegrating tablet OTHER DAY #1 tab lancets 33 gauge ([facility] #100 ea 08/18/23 10/11/24 Rx Plus Lancet) [id number] 250 mg-dha 90 1 cap PO DAILY 09/11/23 10/19/24 History mg-epa 160 pa-zgnw-tolb-zeax capsule (Ocuvite Adult 50 Plus) polyethylene glycol 3350 17 17 g PO DAILY PRN constipation 12/20/23 10/19/24 Rx gram/dose oral powder (Miralax) #238 grams blood sugar diagnostic (OneTouch #100 ea 12/29/23 10/11/24 Rx Verio test strips) levothyroxine 75 mcg tablet 75 mcg PO DAILY #90 tabs 06/14/24 10/19/24 Rx buspirone 5 mg tablet 5 mg PO HS PRN sleep #30 tabs 08/20/24 10/19/24 Rx apixaban 2.5 mg tablet (Eliquis) 2.5 mg PO BID #180 tabs 09/13/24 10/19/24 Rx cefdinir 300 mg capsule 300 mg PO BID 5 days #10 caps 10/16/24 10/19/24 Rx bumetanide 1 mg tablet 1 mg PO DIRECTED 10/19/24 10/19/24 History docusate sodium 100 mg capsule 100 mg PO DAILY 10/19/24 10/19/24 History (Colace) Past Med/Surg History Problem List (Updated 10/19/24 @ 18:14 by Anjana Bahena DO) Ascites Large pleural effusion Penile abrasion Scrotal erythema Pleural effusion (Acute) Chest pain (Acute) Heart failure (Acute) Weakness (Acute) Driving safety issue Pneumonia (Acute) Heart failure with improved ejection fraction (HFimpEF) Recurrent falls Hyponatremia (Acute) Primary hypothyroidism Bradycardia (Acute) Ambulatory dysfunction Chronic constipation Atrial flutter hx of Cholelithiasis Tricuspid regurgitation Gait disturbance (Chronic) Hypothyroidism Paroxysmal A-fib CLL (chronic lymphocytic leukemia) Thrombocytopenia Vitamin D deficiency Vitamin B12 deficiency Hemorrhoids Health care maintenance Dyslipidemia (Chronic) Idiopathic polyneuropathy Type 2 diabetes mellitus (Chronic) Anemia (Chronic) Irritable bowel syndrome (Chronic) Lower back pain (Chronic) Osteoarthritis (Chronic) Insomnia (Chronic) H/O left mastectomy Hypertension Chronic kidney disease, stage III (moderate) follows with Dr. Abrams Medical History Elevated troponin I level Anasarca Pulmonary edema Constipation Hyperkalemia Pleural effusion Syncope Contusion of head Elevated troponin APPLE (acute kidney injury) Hypothermia Fall Joint pain in fingers of left hand Hyperkalemia Hip hematoma, left Normocytic anemia Hyponatremia Sleep disturbances CKD (chronic kidney disease) Right heart failure Cellulitis, leg Hematoma of left lower leg Fall at home Anasarca Hyperbilirubinemia Localized swelling of both lower legs Elevated LFTs Non-ST elevation [place] (NSTEMI) History of cardioversion 07/18/23, [facility] Anticoagulant long-term use eliquis History of anesthesia reaction reports constipation, sleep disturbances and vission changes x 1 year following removal of loose body LLE 2000 History of gout Pancreatic cyst Constipation IBS (irritable bowel syndrome) DM type 2 (diabetes mellitus, type 2) diet controlled, no meds HLD (hyperlipidemia) Leukemia, chronic lymphoid, in remission pt denies per heme records- "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 Monae--on BB and eliquis Benign essential hypertension Surgical History History of lymph node excision 01/2023 off right chest History of surgery removal loose body x 2 LLE History of cataract surgery History of left hip replacement History of right hip replacement History of right mastectomy History of colonoscopy Family History Other No family history of adverse response to anesthesia Denies family history of Ovarian cancer Prostate cancer Breast cancer Lung cancer Colorectal cancer Social History Smoking Status: Never smoker Second Hand Exposure: No; Do You Dip or Chew Tobacco: No; Hx Alcohol Use: No Hx Substance Use: No Preferred Language: Macedonian Communication Ability: Effective Visual Impairment: No Limitations Hearing Ability: Normal Operations Liaison Required: No Beliefs That Will Affect Care: None marital status: / Current Living Situation: Alone Current Living Situation Comment: Home alone 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 How many Children do You have Comment: one son Feels Safe at Home: Yes Diet: diabetic caffeine: No Physical Activity Frequency: Does not Exercise Seatbelt Use: always Sunscreen Use: No Do you think of yourself as: straight/heterosexual Gender Identity: Male Assistive Devices: Walker Review of Systems Review of Systems: As per above Physical Exam Physical Exam: Constitutional: well-appearing, no acute distress HEENT: NCAT, no conjunctival injection CV: regular rhythm, no murmur appreciated, extremities well-perfused, 2+ LE edema to mid porras, with scattered ecchymosis B/L, no calf tenderness Resp: CTABL, no wheezes/rales/rhonchi appreciated, no increased work of breathing GI: soft, nontender, BS normoactive, +ascites MSK: no gross deformities appreciated Skin: warm, dry, no rash appreciated Neuro: alert, oriented, no focal neurologic deficit appreciated Results & Data Results & Data Vital Signs (Past 12 Hours) Vital Signs Pulse Pulse Resp BP BP Pulse Ox O2 Del Method 10/19/24 16:35 75 18 100/81 97 Room Air 10/19/24 14:58 78 21 114/77 93 Room Air 10/19/24 14:55 79 10/19/24 14:36 76 20 97/66 L 98 Room Air Supervising Physician Co-Signing Physician Notes Attending attestation Pt seen and examined in concert with Dr. Bahena. In agreement with the documented findings as noted in the resident documentation with any exceptions or additions as noted here. Resting in bed with mildly decreased appetite, increased abdominal tightness subjectively and bilateral LE swelling which is worse than at time of discharge following being stuck in his recliner with knees too weak to stand. VS as noted, on examination, S1/S2 nl RRR no MCG. CTAB. Abd NT, distended BS+ve, 3+ pitting edema to the knee bilaterally with stasis changes without significant TTP Weakness/failure to thrive - extensive conversation re: goals of care and the importance of rehab services vs. engage hospice services and quality vs. quantity of time. Patient elects rehab services. PT/OT consult. Son, Osito, at bedside is agreeable to support the plan Cirrhosis with ascites s/p recent paracentesis - likely some reaccumulation but would eschew para at present with hemodynamic stability/fluid status and relative asymptomatic presentation. Monitor, trend CMP, CBC HFimEF with pleural effusion - day 3/5 of cefdinir from last discharge - complete course of abx therapy and monitor respiratory status - medication management as noted Atrial fibrillation - anticoagulated on apixaban, continue Constipation - bowel regimen as noted Else see resident documentation as noted. Resident Activity Tracking Resident Involvement: Resident Care Provided Care Provided: Adult Hospital Medicine
--- NOTE | 2024-10-19 18:02 | Emergency Department Note ---
Impression & Plan Weakness, Adult failure to thrive, Gait disturbance, Chronic kidney disease, stage III (moderate) ED Provider Note NAME: HANNAH HE AGE: 89 SEX: M : 1935 ARRIVES VIA: Walk-In INFORMANT: Patient, ED PROVIDER(S): Amanda Villar MD CHIEF COMPLAINT: Weakness HPI: This is a 89-year-old male present for weakness. Patient is with his son and neighbor. There was concern about the patient as he had increasing difficulty ambulating and doing his activities. He was seen a little bit ago and was admitted for fluid overload. Is been taking his Bumex but is still had increasing weakness. He was supposed to go to a senior care facility however he has declined to go last-minute. Reports that he does feel weak and he does home exercises without much relief. No chest pain, shortness of breath at this time. No abdominal pain. No fevers or chills. ROS: See above HPI for pertinent positives & negatives. A total of 10 systems reviewed and were otherwise negative. PAST MEDICAL HISTORY: See Below PAST SURGICAL HISTORY: See Below FAMILY HISTORY: See Below SOCIAL HISTORY: See Below HOME MEDICATIONS: See Below ALLERGIES: See Below VITALS: See Below PHYSICAL EXAMINATION: General: Thin, frail, chronically ill-appearing Head: Normocephalic and atraumatic Eyes: Normal inspection, extraocular muscles intact Ear, nose, throat: Normal external exam Neck: Normal range of motion Respiratory: lungs clear to auscultation bilaterally Cardiovascular: Regular rate/rhythm, no murmur GI: soft, nontender, no guarding or rebound Extremities: nontender, moves all extremities Neuro: The patient awake and alert, appropriately conversive, no focal deficits, symmetric faces Skin: Warm, dry, and intact MEDICAL DECISION MAKING: This is an 89-year-old man present for weakness. Patient is with his son and neighbor who are both concerned by the patient. - Will do screening workup to assess for any changes/worsening fluid overload - Stable hemoglobin, no leukocytosis. He has persistent low platelets - Patient's potassium is elevated at 5.7 without signs of hyperkalemia on EKG. - Chest Xray shows significantly improving bibasilar nonspecific pulmonary opacities - As per family request, will admit the patient for further SNF placement. Differential diagnosis: Failure to thrive, weakness, ambulatory dysfunction, anemia, sepsis Independent History obtained from: Son and neighbor Diagnostics interpreted by me: ECG: ECG independently interpreted by me with atrial fibrillation at rate of 72, normal QRS, normal QTc, no ST segment elevations consistent with STEMI criteria Cardiac Monitoring: An order was placed for continuous cardiac monitoring. The monitor shows a rate of 65 with atrial fibrillation rhythm. Past Med/Surg History Problem List (Updated 10/20/24 @ 19:04 by Amanda Villar MD) Adult failure to thrive (Acute) Weakness (Acute) Ascites Large pleural effusion Driving safety issue Pneumonia (Acute) Bradycardia (Acute) Chronic constipation Atrial flutter hx of Cholelithiasis Tricuspid regurgitation Gait disturbance (Chronic) Hypothyroidism Paroxysmal A-fib CLL (chronic lymphocytic leukemia) Thrombocytopenia Vitamin D deficiency Vitamin B12 deficiency Hemorrhoids Health care maintenance Dyslipidemia (Chronic) Idiopathic polyneuropathy Type 2 diabetes mellitus (Chronic) Anemia (Chronic) Irritable bowel syndrome (Chronic) Lower back pain (Chronic) Osteoarthritis (Chronic) Insomnia (Chronic) H/O left mastectomy Hypertension Chronic kidney disease, stage III (moderate) (Acute) follows with Dr. Abrams Medical History Elevated troponin I level Anasarca Pulmonary edema Constipation Hyperkalemia Pleural effusion Syncope Contusion of head Elevated troponin APPLE (acute kidney injury) Hypothermia Fall Joint pain in fingers of left hand Hyperkalemia Hip hematoma, left Normocytic anemia Hyponatremia Sleep disturbances CKD (chronic kidney disease) Right heart failure Cellulitis, leg Hematoma of left lower leg Fall at home Anasarca Hyperbilirubinemia Localized swelling of both lower legs Elevated LFTs Non-ST elevation [place] (NSTEMI) History of cardioversion 07/18/23, [facility] Anticoagulant long-term use eliquis History of anesthesia reaction reports constipation, sleep disturbances and vission changes x 1 year following removal of loose body LLE 2000 History of gout Pancreatic cyst Constipation IBS (irritable bowel syndrome) DM type 2 (diabetes mellitus, type 2) diet controlled, no meds HLD (hyperlipidemia) Leukemia, chronic lymphoid, in remission pt denies per heme records- "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 Monae--on BB and eliquis Benign essential hypertension Surgical History History of lymph node excision 01/2023 off right chest History of surgery removal loose body x 2 LLE History of cataract surgery History of left hip replacement History of right hip replacement History of right mastectomy History of colonoscopy Family History Other No family history of adverse response to anesthesia Denies family history of Ovarian cancer Prostate cancer Breast cancer Lung cancer Colorectal cancer Social History Smoking Status: Never smoker Second Hand Exposure: No; Do You Dip or Chew Tobacco: No; Hx Alcohol Use: No Hx Substance Use: No Preferred Language: Croatian Communication Ability: Effective Visual Impairment: No Limitations Hearing Ability: Normal Usability Specialist Required: No Beliefs That Will Affect Care: None marital status: / Current Living Situation: Alone Current Living Situation Comment: Home alone 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 How many Children do You have Comment: one son Feels Safe at Home: Yes Diet: diabetic caffeine: No Physical Activity Frequency: Does not Exercise Seatbelt Use: always Sunscreen Use: No Do you think of yourself as: straight/heterosexual Gender Identity: Male Assistive Devices: Glasses and Walker Allergies Allergies Allergy/AdvReac Type Severity Reaction Status Date / Time Sulfa (Sulfonamide Allergy Intermediate HIVES Verified 10/19/24 16:13 Antibiotics) Home Meds Home Medications Medication Instructions Recorded Confirmed [id number] 250 mg-dha 90 1 cap PO DAILY 09/11/23 10/19/24 mg-epa 160 up-temp-kglj-zeax capsule (Ocuvite Adult 50 Plus) bumetanide 1 mg tablet 1 mg PO DIRECTED 10/19/24 10/19/24 docusate sodium 100 mg capsule 100 mg PO DAILY 10/19/24 10/19/24 (Colace) Previous Rx's Medication Instructions Recorded mecobalamin (vitamin B12) 5,000 2,500 mcg (1/2 x 5,000 mcg) PO Q 03/29/23 mcg disintegrating tablet OTHER DAY #1 tab lancets 33 gauge (OneTouch [facility] #100 ea 08/18/23 Plus Lancet) polyethylene glycol 3350 17 17 g PO DAILY PRN constipation 12/20/23 gram/dose oral powder (Miralax) #238 grams blood sugar diagnostic (OneTouch #100 ea 12/29/23 Verio test strips) levothyroxine 75 mcg tablet 75 mcg PO DAILY #90 tabs 06/14/24 buspirone 5 mg tablet 5 mg PO HS PRN sleep #30 tabs 08/20/24 apixaban 2.5 mg tablet (Eliquis) 2.5 mg PO BID #180 tabs 09/13/24 cefdinir 300 mg capsule 300 mg PO BID 5 days #10 caps 10/16/24 Results & Data (ED) Vital Signs Vital Signs - 24 hr 10/19/24 14:36 10/19/24 14:55 10/19/24 14:58 Pulse Rate 76 79 Pulse Rate [Right Finger] 78 Respiratory Rate 20 21 Respiratory Effort / Characteristics Non-Labored Spontaneous Non-Labored Spontaneous Respiratory Depth Normal Normal Respiratory Pattern Regular Blood Pressure 97/66 L Blood Pressure [Right Arm] 114/77 Blood Pressure Mean 76 Blood Pressure Mean [Right Arm] 89 Pulse Oximetry 98 93 Oxygen Delivery Method Room Air Room Air Sepsis Recent Fever Within 48 Hours No Sepsis New/Unexplained Change in Mental Status N/A Sepsis Action Taken by Nursing No Action Required 10/19/24 16:35 10/19/24 17:14 Pulse Rate Pulse Rate [Right Finger] 75 80 Respiratory Rate 18 20 Respiratory Effort / Characteristics Non-Labored Spontaneous Non-Labored Spontaneous Respiratory Depth Normal Normal Respiratory Pattern Blood Pressure Blood Pressure [Right Arm] 100/81 105/84 Blood Pressure Mean Blood Pressure Mean [Right Arm] 87 91 Pulse Oximetry 97 97 Oxygen Delivery Method Room Air Room Air Sepsis Recent Fever Within 48 Hours Sepsis New/Unexplained Change in Mental Status Sepsis Action Taken by Nursing Laboratory Data 10/20/24 05:56 10/20/24 05:56 Lab Results 10/19/24 Range/Units 15:00 WBC 5.04 (4.8-10.8) K/ul RBC 3.41 L (4.70-6.10) M/uL Hgb 11.6 L (14.0-18.0) g/dl Hct 34.7 L (42.0-52.0) % MCV 101.8 H (80.0-100.0) fL MCH 34.0 (25.0-34.0) pg MCHC 33.4 (32.0-36.0) g/dL RDW Std Deviation 68.7 H (36.4-46.3) fL RDW Coeff of [place] 18.8 H (11.5-14.5) % Plt Count 39 L (130-400) K/uL Immature Gran % (Auto) 0.6 % Neut % (Auto) 75.6 % Lymph % (Auto) 14.5 % [place] % (Auto) 7.3 % Eos % (Auto) 1.6 % Baso % (Auto) 0.4 % Neut # (Auto) 3.81 (1.40-6.50) K/uL Lymph # (Auto) 0.73 L (1.20-3.40) K/uL [place] # (Auto) 0.37 (0.11-0.59) K/uL Eos # (Auto) 0.08 (0.00-0.50) K/uL Baso # (Auto) 0.02 (0.00-0.20) K/uL Immature Gran # (Auto) 0.03 (0.01-0.20) K/uL Sodium 133 L (136-145) mmol/L Potassium 5.7 H (3.5-5.1) mmol/L Chloride 99 (98-107) mmol/L Carbon Dioxide 25 (21-32) mmol/L Anion Gap 9 (3-11) BUN 64 H (6-23) mg/dl Creatinine 2.24 H (0.6-1.4) mg/dl Est Cr Clr Drug Dosing Not Reportable eGFR 27.33 BUN/Creatinine Ratio 28.6 H (10-20) Glucose 145 H (70-99(Fasting)) mg/dl Calcium 8.9 (8.6-10.3) mg/dl Magnesium 3.2 H (1.7-2.4) mg/dl Total Bilirubin 2.0 H (0.2-1.0) mg/dl AST 63 H (13-39) U/L ALT 31 (7-52) U/L Alkaline Phosphatase 110 H (34-104) U/L B-Natriuretic Peptide 548 H (0-100) pg/ml Total Protein 6.7 (6.0-8.3) gm/dl Albumin 4.0 (3.4-5.0) gm/dl Globulin 2.7 (2.5-4.0) gm/dl Albumin/Globulin Ratio 1.5 (0.9-2) TSH 7.414 H (0.300-4.500) uIu/ml Free T4 1.13 (0.61-1.60) ng/dl Administered Medications Apixaban (Apixaban 2.5 Mg Tab) 2.5 mg PO BID [facility] Stop: 11/18/24 21:13 Last Admin: 10/20/24 08:52 Dose: 2.5 mg Documented By: Admin: 10/19/24 21:56 Dose: 2.5 mg Documented By: EDGARDO Cefdinir (Cefdinir 300 Mg Cap) 300 mg PO DAILY [facility]; Protocol Stop: 10/22/24 08:59 Last Admin: 10/20/24 08:51 Dose: 300 mg Documented By: EARNEST Hydrocortisone Sodium (Succinate 50 mg/ Syringe) 1 mls @ 4 mls/min IV Q6H NELLI Stop: 10/21/24 00:59 Last Admin: 10/20/24 18:08 Dose: 4 mls/min Documented By: Admin: 10/20/24 12:29 Dose: 4 mls/min Documented By: Admin: 10/20/24 06:10 Dose: 4 mls/min Documented By: EDGARDO Levothyroxine Sodium (Levothyroxine Sodium 75 Mcg Tablet) 75 mcg PO DAILYBB [facility] Stop: 11/19/24 06:29 Last Admin: 10/20/24 06:10 Dose: 75 mcg Documented By: EDGARDO Multivitamins/Minerals (Cerovite Adv Formula Tab) 1 tab PO DAILY NELLI Stop: 11/19/24 08:59 Last Admin: 10/20/24 08:52 Dose: 1 tab Documented By: EARNEST Polyethylene Glycol (Polyethylene (Miralax) 17 Gm Pack) 17 gm PO BID NELLI Stop: 11/18/24 21:13 Last Admin: 10/20/24 08:51 Dose: 17 gm Documented By: Admin: 10/19/24 21:56 Dose: 17 gm Documented By: EDGARDO Discontinued Medications Hydrocortisone Sodium (Succinate 100 mg/ Syringe) 2 mls @ 4 mls/min IV NOW STA Stop: 10/20/24 00:21 Last Admin: 10/20/24 01:06 Dose: 4 mls/min Documented By: EDGARDO Imaging Data Radiologist's Impression: Chest X-Ray 10/19/24 14:52 Chest radiograph, one view History: Weakness. Comparison: October 14, 2024. Findings: Patient rotated to the right. Calcified atherosclerotic changes of the thoracic aorta. Much improved aeration bilateral pulmonary bases with improved visualization of the hemidiaphragms. Persistent nonspecific prominent bilateral hilar reticular markings with poorly defined right costophrenic angle. Pulmonary vasculature is within normal limits. Impression: Significantly improved bibasilar nonspecific pulmonary opacities with persistently subsegmental atelectasis and questionable small right-sided pleural effusion. Lateral view would be helpful. Electronically signed by Naren Mac 10-19-2024 3:26 PM Discharge Plan Visit Data Chief Complaint: Weakness Stated Complaint: CHF, CKD, DIFFICULTY MOVING ED Provider: Amanda Villar Discharge Problem: Weakness, Adult failure to thrive, Gait disturbance, Chronic kidney disease, stage III (moderate) Patient Disposition: Admitted As Inpatient Condition: Fair Discharge Instructions Interventions: ED Discharge Assessment Last Done: 10/19/24 20:33
[2024-10-19 18:23] LABS: Calcium 9.3 mg/dl (8.6-10.3); Creatinine Clr Calc Pharmacy 26.5 ml/min; Magnesium 3.3 mg/dl (1.7-2.4)
[2024-10-19] MEDS ORDERED: busPIRone 5 MG TAB PO PRN (21:14)
[2024-10-19] MEDS: POLYETHYLENE (MIRALAX) 17 GM PACK PO SCH (21:56)
[2024-10-19] MEDS: APIXABAN 2.5 MG TAB PO SCH (21:56)
--- NOTE | 2024-10-19 21:58 | Communication Note ---
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 Prior was alerted that the patient was hypothermic at 94.1. Arrived at bedside informed that code was called due to stroke like symptoms. Exam was non focal besides slight R arm weakness compared to left. Stroke alert was not activated. [place] labs, blood cultures (unfortunately in the setting of current cefdinir use), and urine culture drawn. Orders on those draws include CBC, CMP, lactate, random cortisol, magnesium, thiamine, blood and urine cultures. Susan hugger was applied and nursing asked to check temp [id number]. Will follow labs. Consideration for stress dose steroids if temp does not improve.
[2024-10-19 22:14] LABS: Basophils # (auto) 0.03 K/uL (0.00-0.20); Basophils % (auto) 0.7 %; Eosinophils # (auto) 0.04 K/uL (0.00-0.50); Eosinophils % (auto) 0.9 %; Hematocrit (blood only) 32.2 % (42.0-52.0); Hemoglobin 10.9 g/dl (14.0-18.0); Immature Granulocytes # (auto) 0.02 K/uL (0.01-0.20); Immature Granulocytes % (auto) 0.4 %; Lymphocytes # (auto) 0.57 K/uL (1.20-3.40); Lymphocytes % (auto) 12.6 %; Mean Corpuscular Hemoglobin 34.3 pg (25.0-34.0); Mean Corpuscular Hgb Conc 33.9 g/dL (32.0-36.0); Mean Corpuscular Volume 101.3 fL (80.0-100.0); Mean Platelet Volume 13.8 fL (9.4-12.4); Monocytes # (auto) 0.33 K/uL (0.11-0.59); Monocytes % (auto) 7.3 %; Neutrophils # (auto) 3.55 K/uL (1.40-6.50); Neutrophils % (auto) 78.1 %; Platelet Count 38 K/uL (130-400); RDW Coefficient of Variation 18.6 % (11.5-14.5); Red Blood Count 3.18 M/uL (4.70-6.10); White Blood Count 4.54 K/ul (4.8-10.8)
[2024-10-19 22:38] LABS: Bilirubin,Total 1.7 mg/dl (0.2-1.0); Calcium 8.9 mg/dl (8.6-10.3); Magnesium 3.2 mg/dl (1.7-2.4); Potassium 4.9 mmol/L (3.5-5.1)
[2024-10-19 22:44] LABS: Albumin Globulin Ratio 1.5 (0.9-2); BUN Creatinine Ratio 29.1 (10-20); Creatinine Clr Calc Pharmacy 24.2 ml/min; Globulin 2.6 gm/dl (2.5-4.0); Total Protein 6.5 gm/dl (6.0-8.3)
[2024-10-19 23:00] LABS: Appearance Urine Clear (Clear); Bacteria Urine Automated None Seen (None Seen); Bilirubin Urine Negative (Negative); Blood Urine Negative (Negative); Cast Urine Automated >20 /lpf (0-2); Color Urine Dark Yellow; Epithelial Cell Urine Auto 0-2 /hpf (0-2); Glucose Urine UA Negative (Negative); Ketones Urine Trace (Negative); Leukocyte Esterase Urine Trace (Negative); Nitrite Urine Negative (Negative); Protein Urine 1+ (Negative); RBC Urine Automated 0-2 /hpf (0-2); Specific Gravity Urine 1.015 (1.000-1.030); Urobilinogen Urine Negative (Negative); WBC Urine Automated 0-5 /hpf (0-5); pH Urine 5.5 (4.5-7.5)
[2024-10-20] MEDS: HYDROCORTISONE SOD 100 MG in SYRINGE 0 ML IV STA (01:06)
[2024-10-20] MEDS: HYDROCORTISONE SOD 50 MG in SYRINGE 0 ML IV SCH (06:10)
[2024-10-20] MEDS: LEVOTHYROXINE SODIUM 75 MCG TABLET PO SCH (06:10)
[2024-10-20 06:38] LABS: Basophils # (auto) 0.03 K/uL (0.00-0.20); Basophils % (auto) 0.7 %; Eosinophils # (auto) 0.04 K/uL (0.00-0.50); Eosinophils % (auto) 0.9 %; Hematocrit (blood only) 29.8 % (42.0-52.0); Hemoglobin 10.3 g/dl (14.0-18.0); Immature Granulocytes # (auto) 0.03 K/uL (0.01-0.20); Immature Granulocytes % (auto) 0.7 %; Lymphocytes # (auto) 0.39 K/uL (1.20-3.40); Lymphocytes % (auto) 8.7 %; Mean Corpuscular Hemoglobin 34.6 pg (25.0-34.0); Mean Corpuscular Hgb Conc 34.6 g/dL (32.0-36.0); Mean Platelet Volume 12.9 fL (9.4-12.4); Monocytes # (auto) 0.24 K/uL (0.11-0.59); Monocytes % (auto) 5.4 %; Neutrophils # (auto) 3.73 K/uL (1.40-6.50); Neutrophils % (auto) 83.6 %; Platelet Count 34 K/uL (130-400); RDW Coefficient of Variation 18.6 % (11.5-14.5); Red Blood Count 2.98 M/uL (4.70-6.10); White Blood Count 4.46 K/ul (4.8-10.8)
[2024-10-20 07:00] LABS: Albumin Globulin Ratio 1.5 (0.9-2); BUN Creatinine Ratio 30.3 (10-20); Bilirubin,Total 1.8 mg/dl (0.2-1.0); Calcium 8.8 mg/dl (8.6-10.3); Creatinine Clr Calc Pharmacy 25.2 ml/min; Globulin 2.4 gm/dl (2.5-4.0); Magnesium 3.1 mg/dl (1.7-2.4); Total Protein 6.1 gm/dl (6.0-8.3)
[2024-10-20 07:01] LABS: INR 1.3 (0.9-1.1); Prothrombin Time 13.4 Seconds (9.0-12.0)
--- NOTE | 2024-10-20 07:58 | Electrocardiogram Report ---
Test Reason : Blood Pressure : */* mmHG Vent. Rate : 72 BPM Atrial Rate : * BPM P-R Int : * ms QRS Dur : 114 ms QT Int : 410 ms P-R-T Axes : * 39 181 degrees QTcB Int : 448 ms Atrial fibrillation Low voltage QRS Possible Old Anterior infarct (cited on or before 10-Oct-2024) Nonspecific T wave abnormality Lateral leads Abnormal ECG When compared with ECG of 13-Oct-2024 14:58, T-wave inversion in Lateral leads less pronounced Confirmed by James Amador ([id number]) on 10/20/2024 7:58:25 AM Referred By: REFERRED SELF Confirmed By: James Amador
[2024-10-20] MEDS: CEFDINIR 300 MG CAP PO SCH (08:51)
[2024-10-20] MEDS: CEROVITE ADV FORMULA TAB PO SCH (08:52)
--- NOTE | 2024-10-20 14:35 | Hospitalist Progress Note ---
Date of Service October 20, 2024 Assessment & Plan (1) Ambulatory dysfunction: (2) Chronic kidney disease, stage III (moderate): (3) Paroxysmal A-fib: (4) Thrombocytopenia: (5) Heart failure with improved ejection fraction (HFimpEF): (6) Ascites: Plan 89 year old male with a past medical history of HFimEF, DMT2, HTN, CKD, CLL, hypothyroidism, a fib on Eliquis that is presenting with ambulatory dysfunction. This is an 89-year-old gentleman with past medical history of CHF, CKD, type 2 diabetes, dyslipidemia, A-fib, hypothyroidism who presented to the emergency department on 10/19/2024 with a chief complaint of ambulatory dysfunction. Maxwell was recently admitted to the hospital from 10/11/2024 to 10/16/2024. At that time he was found to have a right sided pleural effusion and had a thoracentesis on 10/13 that was transudative etiology. Rehab was recommended at that time but he refused and went home. #Hypothermia Appears chronic Code purple called on the evening of 10/19 Random cortisol level 14 S/p Susan [employer] patient warming system Stress dose steroids started on the evening of 10/19. Currently receiving IV hydrocortisone 50 mg every 6 hours. Starting 10/21 decreased dosage to hydrocortisone 25 mg every 6 hours # Ambulatory dysfunction No changes from previous discharge PT OT consulted, now agreeable to report to rehab #CKD stage IIIb/hypomagnesemia/hyperkalemia Baseline creatinine 1.9-2.2. BMP with stable creatinine at 2.18, K now WNL at 5.0. Magnesium still mildly elevated at 3.1 Continue to monitor, a.m. BMP, magnesium Consider nephrology consultation if abnormalities persist #CHF/pleural effusion Baseline weight likely around 165lbs Continue Bumex every other day S/p thoracentesis 10/13 that was transudative.2 days left of cefdinir course for "lung fluid". Gram stain negative. Daily weights, preferably standing follows w/ cardiology #Cirrhosis Alcohol history unclear MELD 3.0: 22 CTAP from 10/10/2024 with cirrhosis and ascites findings Hepatitis panel negative Will require further workup outpatient #CHF/pleural effusion Baseline weight likely around 165lbs Continue Bumex every other day S/p thoracentesis 10/13 that was transudative.2 days left of cefdinir course for "lung fluid". Gram stain negative. Daily weights, preferably standing #Hypothyroidism TSH elevated at 7.414 (improved from 10/10 @ 8.155) Continue Levothyroxine 75mcg repeat TSH in 4-6 weeks outpatient #Constipation Miralax increased to BID, monitor BM's #A fib - Eliquis DVT prophylaxis: Home Eliquis Code: DNR/DNI Admission and Anticipated Discharge Date Admission Date: October 19, 2024 Mauro Arreola was seen and examined this morning. He denied any complaints today and reports he is agreeable to go to rehab now. Physical Exam Physical Exam: General: no acute distress; non-toxic appearing; well-nourished; cooperative HEENT: normocephalic, atraumatic; no scleral icterus; PERRLA w/ EOMs intact; vision and hearing grossly intact Skin: warm, dry without signs of tenting; no cyanosis; no rashes, bruising, lesions, or erythema noted CV: chest wall NTP; RRR; S1/S2 normal; no murmurs/rubs/gallops Lungs: no acute respiratory distress; symmetrical chest wall expansion ABD: Soft, NTP; BS present; no rebound/guarding; no distention MSK: no edema noted in the LEs b/l, nonerythematous Neuro: A&Ox3; normal mood and affect; fluent speech; no focal deficits Results & Data Results & Data Vital Signs (Past 12 Hours) Vital Signs Temp Pulse Resp BP Pulse Ox O2 Del Method 10/20/24 09:00 36.3 C L 10/20/24 08:54 36.3 C L 77 18 104/69 95 Room Air 10/20/24 07:45 36.1 C L 10/20/24 06:09 35.6 C L 10/20/24 03:20 35.2 C L PG Care Time/CCT Total # of Minutes Spent Total Time Spent with Patient: Total time spent is greater than 50% in coordination of care (as documented) at patient's floor/unit and/or counseling patient: Coding Level of Care Code 18783 SUB INP/OBS CARE 3/50MIN Diagnoses Ambulatory dysfunction R26.2 Chronic kidney disease, stage III (moderate) N18.30 Paroxysmal A-fib I48.0 Thrombocytopenia D69.6 Heart failure with improved ejection fraction (HFimpEF) I50.32 Ascites R18.8
[2024-10-21] MEDS: HYDROCORTISONE SOD 25 MG in SYRINGE 0 ML IV SCH (06:32)
[2024-10-21 07:42] LABS: Hematocrit (blood only) 30.2 % (42.0-52.0); Hemoglobin 10.2 g/dl (14.0-18.0); Mean Corpuscular Hemoglobin 34.3 pg (25.0-34.0); Mean Corpuscular Hgb Conc 33.8 g/dL (32.0-36.0); Mean Corpuscular Volume 101.7 fL (80.0-100.0); Mean Platelet Volume 12.6 fL (9.4-12.4); Platelet Count 38 K/uL (130-400); RDW Coefficient of Variation 18.7 % (11.5-14.5); RDW Standard Deviation 68.8 fL (36.4-46.3); Red Blood Count 2.97 M/uL (4.70-6.10); White Blood Count 4.22 K/ul (4.8-10.8)
[2024-10-21 08:03] LABS: Albumin Globulin Ratio 1.5 (0.9-2); Bilirubin,Total 1.8 mg/dl (0.2-1.0); Calcium 8.7 mg/dl (8.6-10.3); Creatinine Clr Calc Pharmacy 22.9 ml/min; Globulin 2.4 gm/dl (2.5-4.0); Potassium 4.9 mmol/L (3.5-5.1)
[2024-10-21] MEDS: CYANOCOBALAMIN (B-12) 500 MCG TABLET PO SCH (08:28)
--- NOTE | 2024-10-21 11:20 | Hospitalist Progress Note ---
Date of Service October 21, 2024 Assessment & Plan (1) Ambulatory dysfunction: (2) Chronic kidney disease, stage III (moderate): (3) Paroxysmal A-fib: (4) Thrombocytopenia: (5) Heart failure with improved ejection fraction (HFimpEF): (6) Ascites: Plan 89 year old male with a past medical history of HFimEF, DMT2, HTN, CKD, CLL, hypothyroidism, a fib on Eliquis that is presenting with ambulatory dysfunction. This is an 89-year-old gentleman with past medical history of CHF, CKD, type 2 diabetes, dyslipidemia, A-fib, hypothyroidism who presented to the emergency department on 10/19/2024 with a chief complaint of ambulatory dysfunction. Maxwell was recently admitted to the hospital from 10/11/2024 to 10/16/2024. At that time he was found to have a right sided pleural effusion and had a thoracentesis on 10/13 that was transudative etiology. Rehab was recommended at that time but he refused and went home. # Ambulatory dysfunction No changes from previous discharge PT OT consulted, now agreeable to report to rehab Per notes, planning for [facility] with potential discharge on Monday 10/23 #Episode of hypothermia Acute on chronic; 34.5 C on 10/19 Code purple called on the evening of 10/19 Random cortisol level 14 S/p Susan hugger patient warming system Stress dose steroids started on the evening of 10/19. Currently receiving IV hydrocortisone 50 mg every 6 hours. Starting 10/21 decreased dosage to hydrocortisone 25 mg every 6 hours BP remains normotensive, but soft; Will plan to continue until 10/23 or time of discharge #CKD stage IIIb Baseline creatinine 1.9-2.2. Creatinine 2.18 -> 2.40 on arrival Magnesium still mildly elevated at 3.1 Continue to monitor, a.m. BMP, magnesium Consider nephrology consultation if abnormalities persist #CHF/pleural effusion Baseline weight likely around 165lbs Continue Bumex every other day; difficulty in the past with fluid balance(CKD vs LE edema) S/p thoracentesis 10/13 that was transudative.2 days left of cefdinir course for "lung fluid". Gram stain negative. Daily weights, preferably standing Follows w/ cardiology #Cirrhosis Alcohol history unclear MELD 3.0: 22 CTAP from 10/10/2024 with cirrhosis and ascites findings Hepatitis panel negative Will require further workup outpatient #Hypothyroidism TSH elevated at 7.414 (improved from 10/10 @ 8.155) Continue Levothyroxine 75mcg Repeat TSH in 4-6 weeks outpatient #Constipation Miralax increased to BID, monitor BM's #A fib | anemia | thrombocytopenia In atrial fibrillation on arrival; rate control PCP did reach out on 10/21 to confirm that Eliquis has been discontinued due to recurrent falls, low platelet count, and anemia Hgb 10.2; platelet count low at 38 on 10/21 D/C Eliquis Trend CBC DVT prophylaxis: Discontinue Eliquis; teds Code: DNR/DNI Admission and Anticipated Discharge Date Admission Date: October 19, 2024 Subjective Mr. Encinas is resting peacefully in his chair this morning. He reports no pain at this time. However, he reports that he has significant trouble walking with his walker, which is new for him. Normally, he is able to ambulate with his walker at home without much difficulty; however, upon discharge from the hospital last time, he felt weaker than he was prior to arrival. Son at bedside (Osito) reconfirms story. Despite increased difficulty with standing and transferring, patient reports he is doing well. No fever, chills, chest pain, NAJERA with walking, or abdominal pain at this time. Patient denies any recent falls or injuries to the arms or legs. In regard to the bruises on his right upper extr emity and right lower extremity, he reports they have been present for a long period of time. ROS Patient endorses trouble standing up, generalized weakness, and ambulatory dysfunction. Patient denies fever, chills, night sweats, dizziness/lightheadedness with movements, chest pain, chest palpitations, pleuritic CP, cough, abdominal pain, N/V/D, pain in the legs with standing, changes in urinary or bowel habits, or numbness or tingling the arms or legs. Review of Systems Review of Systems: See HPI above Physical Exam Physical Exam: General: no acute distress; pleasant affect; son at bedside; non-toxic appearing; frail appearing; cooperative; SpO2 95% on RA HEENT: normocephalic, atraumatic; no scleral icterus; PERRLA; vision intact; hard of hearing Neck: supple; no lymphadenopathy; trachea midline Skin: Purple bruising noted on the right dorsal forearm and right bicep; also noted on the right lateral lower extremity; warm, dry without signs of tenting; no cyanosis CV: chest wall NTP; RRR; S1/S2 normal; no murmurs/rubs/gallops; pulses intact and symmetric at radial, DP, and PT Lungs: no acute respiratory distress; symmetrical chest wall expansion; clear breath sounds across all lung kendrick w/o adventitious sounds; no wheezing ABD: Soft, NTP; BS present; no rebound/guarding; no distention MSK: no tics or fasciculations; +3 pitting edema extending up to the thighs bilaterally, not erythematous but with significant bruising on the right lower extremity; patient demonstrates ability to lift legs from a seated position bilaterally against resistance Neuro: A&Ox3; normal mood and affect; fluent speech; no focal deficits; sensation intact and symmetric in lower extremes bilaterally Results & Data Results & Data Vital Signs (Past 12 Hours) Vital Signs Temp Pulse Resp BP Pulse Ox O2 Del Method 10/21/24 09:03 36.3 C L 10/21/24 07:49 84 17 122/80 95 Room Air PG Care Time/CCT Total # of Minutes Spent Total Time Spent with Patient: Total time spent is greater than 50% in coordination of care (as documented) at patient's floor/unit and/or counseling patient: Coding [place] [address] SUB INP/OBS CARE 2/35MIN Patient Type Established History Comprehensive Exam Comprehensive Medical Decision Making Moderate Complexity Diagnoses Ambulatory dysfunction R26.2 Chronic kidney disease, stage III (moderate) N18.30 Paroxysmal A-fib I48.0 Thrombocytopenia D69.6 Heart failure with improved ejection fraction (HFimpEF) I50.32 Ascites R18.8
[2024-10-22 06:52] LABS: Hematocrit (blood only) 27.3 % (42.0-52.0); Hemoglobin 9.3 g/dl (14.0-18.0); Immature Granulocytes # (auto) 0.02 K/uL (0.01-0.20); Immature Granulocytes % (auto) 0.4 %; Lymphocytes # (auto) 0.54 K/uL (1.20-3.40); Lymphocytes % (auto) 9.9 %; Mean Corpuscular Hemoglobin 34.3 pg (25.0-34.0); Mean Corpuscular Hgb Conc 34.1 g/dL (32.0-36.0); Mean Corpuscular Volume 100.7 fL (80.0-100.0); Mean Platelet Volume 12.5 fL (9.4-12.4); Monocytes # (auto) 0.35 K/uL (0.11-0.59); Monocytes % (auto) 6.4 %; Neutrophils # (auto) 4.57 K/uL (1.40-6.50); Neutrophils % (auto) 83.3 %; Platelet Count 40 K/uL (130-400); RDW Coefficient of Variation 18.3 % (11.5-14.5); RDW Standard Deviation 66.4 fL (36.4-46.3); Red Blood Count 2.71 M/uL (4.70-6.10); White Blood Count 5.48 K/ul (4.8-10.8)
[2024-10-22 07:03] LABS: Calcium 8.6 mg/dl (8.6-10.3); Magnesium 2.9 mg/dl (1.7-2.4); Potassium 4.9 mmol/L (3.5-5.1)
[2024-10-22] MEDS ORDERED: BUMETANIDE 1 MG TAB PO SCH (09:00)
--- NOTE | 2024-10-22 12:06 | Hospitalist Progress Note ---
Date of Service October 22, 2024 Assessment & Plan (1) Ambulatory dysfunction: (2) Chronic kidney disease, stage III (moderate): (3) Paroxysmal A-fib: (4) Thrombocytopenia: (5) Heart failure with improved ejection fraction (HFimpEF): (6) Ascites: Plan 89 year old male with a past medical history of HFimEF, DMT2, HTN, CKD, CLL, hypothyroidism, a fib on Eliquis that is presenting with ambulatory dysfunction. This is an 89-year-old gentleman with past medical history of CHF, CKD, type 2 diabetes, dyslipidemia, A-fib, hypothyroidism who presented to the emergency department on 10/19/2024 with a chief complaint of ambulatory dysfunction. Maxwell was recently admitted to the hospital from 10/11/2024 to 10/16/2024. At that time he was found to have a right sided pleural effusion and had a thoracentesis on 10/13 that was transudative etiology. Rehab was recommended at that time but he refused and went home. # Ambulatory dysfunction No changes from previous discharge PT OT consulted, now agreeable to report to rehab Per notes, planning for [facility] with potential discharge on Monday 10/23 #Episode of hypothermia Acute on chronic; 34.5 C on 10/19 Code purple called on the evening of 10/19 Random cortisol level 14 S/p Susan [employer] patient warming system Stress dose steroids started on the evening of 10/19. Currently receiving IV hydrocortisone 50 mg every 6 hours. Starting 10/21 decreased dosage to hydrocortisone 25 mg every 6 hours BP remains normotensive, but soft; Will plan to continue until 10/23 or time of discharge #CKD stage IIIb | hypermagnesemia Baseline creatinine 1.9-2.2. Creatinine 2.18 -> 2.50 on arrival Magnesium remains mildly elevated Continue to hold Bumex Trend BMP, magnesium #CHF/pleural effusion Baseline weight likely around 165lbs S/p thoracentesis 10/13 that was transudative. 2 days left of cefdinir course for "lung fluid". Gram stain negative. Daily weights, preferably standing Hold Bumex due to kidney function (as above) Given new finding of liver cirrhosis, patient is more likely to benefit from spironolactone than Bumex moving forward Follows w/ cardiology #Cirrhosis | Ascites Alcohol history unclear MELD 3.0: 22 CTAP from 10/10/2024 with cirrhosis and ascites findings Hepatitis panel negative Clinically, patient denies abdominal pain; NTP on exam; low suspicion for SBP Paracentesis deferred multiple times due to fluid status, kidney function, and low blood pressure; platelet count is also borderline (35-40) Will again defer paracentesis due to hypotension on 10/22 Albumin 25% 12.5 gm IV q1h x 7 bag Check a.m. ammonia level Will potentially start patient on spironolactone on 10/23 pending a.m. blood pressure Will require further workup outpatient #Megaloblastic anemia Hgb trend 10.3 -> 10.2 -> 9.3 MCV >100 Vitamin B12 and folate WNL 06/2024 Continue to monitor with daily H&H #Hypothyroidism TSH elevated at 7.414 (improved from 10/10 @ 8.155) Continue Levothyroxine 75mcg Repeat TSH in 4-6 weeks outpatient #Right hip hematoma Noted on hip CT on 10/12 #Constipation Miralax increased to BID, monitor BM's #A fib | anemia | thrombocytopenia In atrial fibrillation on arrival; rate control PCP did reach out on 10/21 to confirm that Eliquis has been discontinued due to recurrent falls, low platelet count, and anemia Hgb 10.2; platelet count low at 38 on 10/21 D/C Eliquis Trend CBC DVT prophylaxis: Eliquis has been discontinued; teds Code: DNR/DNI Admission and Anticipated Discharge Date Admission Date: October 19, 2024 Subjective Mr. Encinas is resting in his chair, and reports no new complaints this morning. He reports he slept well. No pain. He did have an episode where he with the bed this morning, but that was due to inability to get up on his own. He was also able to ambulate with PT for a short period of time. His main concern continues to be that he has difficulty sitting up on his own. Did discuss patient's ascites, and that patient may benefit from having the fluid removed, as this might help with mobility. Patient reports he is amenable to paracentesis if needed, or conservative therapy with medications. ROS Patient endorses trouble standing up, an episode of urinary continence (due to inability to get up), generalized weakness, and ambulatory dysfunction. Patient denies fever, chills, night sweats, dizziness/lightheadedness with movements, chest pain, chest palpitations, pleuritic CP, cough, abdominal pain, abdominal bloating or discomfort, N/V/D, pain in the legs with standing, changes in urinary or bowel habits, or numbness or tingling the arms or legs. Review of Systems Review of Systems: See HPI above Physical Exam Physical Exam: General: no acute distress; pleasant affect; non-toxic appearing; frail appearing; cooperative; SpO2 95% on RA HEENT: normocephalic, atraumatic; no scleral icterus; PERRLA; vision intact; hard of hearing Neck: supple; no lymphadenopathy; trachea midline Skin: Purple bruising noted on the right dorsal forearm and right bicep; also noted on the right lateral lower extremity; warm, dry without signs of tenting; no cyanosis CV: chest wall NTP; RRR; S1/S2 normal; no murmurs/rubs/gallops; pulses intact and symmetric at radial, DP, and PT Lungs: no acute respiratory distress; symmetrical chest wall expansion; clear breath sounds across all lung kendrick w/o adventitious sounds; no wheezing ABD: Soft, NTP; BS present; no rebound/guarding; no distention MSK: no tics or fasciculations; +3 pitting edema extending up to the thighs bilaterally, not erythematous but with significant bruising/hematoma on the right lower extremity; patient demonstrates ability to lift legs from a seated position bilaterally against resistance, albeit with some pain Left hip: Hematoma noted on the left hip; bulging, spherical, approximately 3 cm diameter; ecchymosis and bruising; without erythema; NTP Neuro: A&Ox3; normal mood and affect; fluent speech; no focal deficits; sensation intact and symmetric in lower extremes bilaterally Results & Data Results & Data Vital Signs (Past 12 Hours) Vital Signs Temp Pulse Resp BP Pulse Ox O2 Del Method 10/22/24 07:15 Room Air 10/22/24 07:08 35.6 C L 80 18 99/71 L 96 Room Air PG Care Time/CCT Total # of Minutes Spent Total Time Spent with Patient: Total time spent is greater than 50% in coordination of care (as documented) at patient's floor/unit and/or counseling patient: Coding [place] [address] SUB INP/OBS CARE 3/50MIN Patient Type Established History Comprehensive Exam Comprehensive Medical Decision Making High Complexity Diagnoses Ambulatory dysfunction R26.2 Chronic kidney disease, stage III (moderate) N18.30 Paroxysmal A-fib I48.0 Thrombocytopenia D69.6 Heart failure with improved ejection fraction (HFimpEF) I50.32 Ascites R18.8
[2024-10-22] MEDS: ALBUMIN 25% 12.5 GM/50 ML VIAL IV SCH (16:13)
[2024-10-22] MEDS: HYDROCORTISONE SOD 25 MG in SYRINGE 0 ML IV SCH (18:31)
[2024-10-23 07:38] LABS: Basophils # (auto) 0.01 K/uL (0.00-0.20); Basophils % (auto) 0.1 %; Eosinophils # (auto) 0.01 K/uL (0.00-0.50); Eosinophils % (auto) 0.1 %; Hematocrit (blood only) 28.5 % (42.0-52.0); Hemoglobin 9.7 g/dl (14.0-18.0); Immature Granulocytes # (auto) 0.04 K/uL (0.01-0.20); Immature Granulocytes % (auto) 0.5 %; Lymphocytes # (auto) 0.51 K/uL (1.20-3.40); Lymphocytes % (auto) 6.9 %; Mean Corpuscular Hemoglobin 34.6 pg (25.0-34.0); Mean Corpuscular Volume 101.8 fL (80.0-100.0); Mean Platelet Volume 13.3 fL (9.4-12.4); Monocytes # (auto) 0.53 K/uL (0.11-0.59); Monocytes % (auto) 7.2 %; Neutrophils # (auto) 6.25 K/uL (1.40-6.50); Neutrophils % (auto) 85.2 %; Platelet Count 42 K/uL (130-400); RDW Coefficient of Variation 18.4 % (11.5-14.5); White Blood Count 7.35 K/ul (4.8-10.8)
[2024-10-23 07:55] LABS: BUN Creatinine Ratio 32.8 (10-20); Calcium 9.2 mg/dl (8.6-10.3); Creatinine Clr Calc Pharmacy 22.5 ml/min; Potassium 4.7 mmol/L (3.5-5.1)
[2024-10-23] MEDS: HYDROCORTISONE SOD 50 MG in SYRINGE 0 ML IV STA (09:12)
[2024-10-23] MEDS: ALBUMIN 25% 12.5 GM/50 ML VIAL IV SCH (14:44)
--- NOTE | 2024-10-23 18:20 | Hospitalist Progress Note ---
Date of Service October 23, 2024 Assessment & Plan (1) Ambulatory dysfunction: (2) Chronic kidney disease, stage III (moderate): (3) Paroxysmal A-fib: (4) Thrombocytopenia: (5) Heart failure with improved ejection fraction (HFimpEF): (6) Ascites: Plan 89 year old male with a past medical history of HFimEF, DMT2, HTN, CKD, CLL, hypothyroidism, a fib on Eliquis that is presenting with ambulatory dysfunction. This is an 89-year-old gentleman with past medical history of CHF, CKD, type 2 diabetes, dyslipidemia, A-fib, hypothyroidism who presented to the emergency department on 10/19/2024 with a chief complaint of ambulatory dysfunction. Maxwell was recently admitted to the hospital from 10/11/2024 to 10/16/2024. At that time he was found to have a right sided pleural effusion and had a thoracentesis on 10/13 that was transudative etiology. Rehab was recommended at that time but he refused and went home. # Ambulatory dysfunction No changes from previous discharge PT OT consulted, now agreeable to report to rehab Per notes, planning for [facility] with potential discharge on Monday 10/23 #Episodes of hypothermia Acute on chronic v. ? Infectious etiology; 34.5 C on 10/19 and 34.6 F on 10/23 Code moreno called on the evening of 10/19 Random cortisol level 14 Very hugger patient warming system as needed Hydrocortisone 50 mg IV x 1 given on 10/23 Continue hydrocortisone 25 mg IV q12h (weaned from prior) #CKD stage IIIb | hypermagnesemia Baseline creatinine 1.9-2.2. Creatinine 2.18 -> 2.50 on arrival Magnesium remains mildly elevated Continue to hold Bumex Trend BMP, magnesium #CHF/pleural effusion Baseline weight likely around 165lbs S/p thoracentesis 10/13 that was transudative. 2 days left of cefdinir course for "lung fluid". Gram stain negative. Daily weights, preferably standing Hold Bumex due to kidney function (as above) Given new finding of liver cirrhosis, patient is more likely to benefit from spironolactone than Bumex moving forward Follows w/ cardiology #Cirrhosis | Ascites Patient's son reports no history of heavy alcohol use MELD 3.0: 22 CTAP from 10/10/2024 with cirrhosis and ascites findings Hepatitis panel negative Clinically, patient denies abdominal pain; NTP on exam; low suspicion for SBP Paracentesis deferred multiple times due to fluid status, kidney function, and low blood pressure; platelet count is also borderline (35-40) Will again defer paracentesis due to hypotension on 10/22 Albumin 25% 12.5 gm IV q1h x 7 bag Currently on second day of albumin; continue to monitor for improvement in creatinine Ammonia level WNL Will potentially start patient on spironolactone on 10/24 pending a.m. blood pressure Will require further workup outpatient #Megaloblastic anemia Hgb trend 10.3 -> 10.2 -> 9.3 MCV >100 Vitamin B12 and folate WNL 06/2024 Continue to monitor with daily H&H #Hypothyroidism TSH elevated at 7.414 (improved from 10/10 @ 8.155) Continue Levothyroxine 75mcg Repeat TSH in 4-6 weeks outpatient #Right hip hematoma Noted on hip CT on 10/12 #Constipation Miralax increased to BID, monitor BM's #A fib | anemia | thrombocytopenia In atrial fibrillation on arrival; rate control PCP did reach out on 10/21 to confirm that Eliquis has been discontinued due to recurrent falls, low platelet count, and anemia Hgb 10.2; platelet count low at 38 on 10/21 D/C Eliquis Trend CBC DVT prophylaxis: Eliquis has been discontinued; teds Code: DNR/DNI Admission and Anticipated Discharge Date Admission Date: October 19, 2024 Subjective Mr. Encnias is resting in his bed this morning with bear hugger in place. He reports he had difficulty with sleep last night, but denies any pain this morning. He did have additional episode of bedwetting as he missed a urinal while lying flat in bed. No new concerns at this time. ROS Patient endorses trouble standing up, an additional episode of bedwetting (patient missed while using the urinal in bed), generalized weakness, and ambulatory dysfunction. Patient denies fever, chills, night sweats, dizziness/lightheadedness with movements, chest pain, chest palpitations, pleuritic CP, cough, abdominal pain, abdominal bloating or discomfort, N/V/D, pain in the legs with standing, changes in urinary or bowel habits, or numbness or tingling the arms or legs. Spoke to patient's son/medical POA (Osito) on the phone and provided update regarding hospitalization. Provided information regarding patient's liver disease and prognosis moving forward. Informed son that, patient will likely require additional 1 to 2 days (or more) to the hospital until he is medically stable for discharge. Brief goals of care discussion took place. At this time, son does not wish to pursue palliative care options, but was appreciative of the conversation. Review of Systems Review of Systems: See HPI above Physical Exam Physical Exam: General: no acute distress; pleasant affect; non-toxic appearing; frail appearing; cooperative; SpO2 97% on RA HEENT: normocephalic, atraumatic; no scleral icterus; PERRLA; vision intact; hard of hearing Neck: supple; no lymphadenopathy; trachea midline Skin: Purple bruising noted on the right dorsal forearm and right bicep; also noted on the right lateral lower extremity; warm, dry without signs of tenting; no cyanosis CV: chest wall NTP; RRR; S1/S2 normal; no murmurs/rubs/gallops; pulses intact and symmetric at radial, DP, and PT Lungs: no acute respiratory distress; symmetrical chest wall expansion; clear breath sounds across all lung kendrick w/o adventitious sounds; no wheezing ABD: Soft, NTP; BS present; no rebound/guarding; no distention MSK: no tics or fasciculations; +3 pitting edema extending up to the thighs bilaterally, not erythematous but with significant bruising/hematoma on the right lower extremity; patient demonstrates ability to lift legs from a seated position bilaterally against resistance, albeit with some pain Left hip: Hematoma noted on the left hip; bulging, spherical, approximately 3 cm diameter; ecchymosis and bruising; without erythema; NTP Neuro: A&Ox3; normal mood and affect; fluent speech; no focal deficits; sensation intact and symmetric in lower extremes bilaterally Results & Data Results & Data Vital Signs (Past 12 Hours) Vital Signs Temp Pulse Resp BP Pulse Ox O2 Del Method 10/23/24 14:15 102 H 18 115/73 97 Room Air 10/23/24 13:55 35.4 C L 10/23/24 10:30 34.6 C L 10/23/24 07:30 34.9 C L 10/23/24 07:00 Room Air 10/23/24 06:51 88 18 112/74 95 Room Air PG Care Time/CCT Total # of Minutes Spent Total Time Spent with Patient: Total time spent is greater than 50% in coordination of care (as documented) at patient's floor/unit and/or counseling patient: C[place] [address] SUB INP/OBS CARE 3/50MIN Patient Type Established History Comprehensive Exam Comprehensive Medical Decision Making High Complexity Diagnoses Ambulatory dysfunction R26.2 Chronic kidney disease, stage III (moderate) N18.30 Paroxysmal A-fib I48.0 Thrombocytopenia D69.6 Heart failure with improved ejection fraction (HFimpEF) I50.32 Ascites R18.8
[2024-10-24 07:45] LABS: Eosinophils # (auto) 0.01 K/uL (0.00-0.50); Eosinophils % (auto) 0.1 %; Hematocrit (blood only) 26.9 % (42.0-52.0); Hemoglobin 8.9 g/dl (14.0-18.0); Immature Granulocytes # (auto) 0.03 K/uL (0.01-0.20); Immature Granulocytes % (auto) 0.4 %; Lymphocytes # (auto) 0.55 K/uL (1.20-3.40); Lymphocytes % (auto) 7.9 %; Mean Corpuscular Hgb Conc 33.1 g/dL (32.0-36.0); Mean Corpuscular Volume 102.7 fL (80.0-100.0); Mean Platelet Volume 12.9 fL (9.4-12.4); Monocytes # (auto) 0.52 K/uL (0.11-0.59); Monocytes % (auto) 7.5 %; Neutrophils # (auto) 5.83 K/uL (1.40-6.50); Neutrophils % (auto) 84.1 %; Nucleated RBC # (auto) 0.02 K/uL (0.00-0.12); Nucleated RBC % (auto) 0.3 %; Platelet Count 43 K/uL (130-400); RDW Coefficient of Variation 18.6 % (11.5-14.5); RDW Standard Deviation 69.3 fL (36.4-46.3); Red Blood Count 2.62 M/uL (4.70-6.10); White Blood Count 6.94 K/ul (4.8-10.8)
[2024-10-24 08:16] LABS: Anion Gap 8 (3-11); Calcium 9.3 mg/dl (8.6-10.3); Carbon Dioxide 26 mmol/L (21-32); Chloride 102 mmol/L (98-107); INR 1.3 (0.9-1.1); Magnesium 2.8 mg/dl (1.7-2.4); Potassium 4.6 mmol/L (3.5-5.1); Sodium 136 mmol/L (136-145)
[2024-10-24 08:22] LABS: Alanine Aminotransferase 46 U/L (7-52); Albumin Globulin Ratio 2.7 (0.9-2); Alkaline Phosphatase 84 U/L (34-104); Aspartate Aminotransferase 52 U/L (13-39); Blood Urea Nitrogen 76 mg/dl (6-23); Creatinine Clr Calc Pharmacy 26.1 ml/min; Globulin 1.7 gm/dl (2.5-4.0); Glucose 258 mg/dl (70-99(Fasting)); Total Protein 6.3 gm/dl (6.0-8.3)
[2024-10-24 11:27] LABS: C Reactive Protein < 0.50 mg/dl (0-0.5)
[2024-10-24 11:51] LABS: Ferritin 160.7 ng/ml (8-388)
[2024-10-24 11:55] LABS: Acanthocytes 1+; Macrocytosis Present; Ovalocytes 1+; Polychromasia 1+; Target Cells 1+
--- NOTE | 2024-10-24 14:34 | Ultrasound Report ---
ULTRASOUND-GUIDED PARACENTESIS CLINICAL HISTORY: Ascites PROCEDURE: Procedure and risks were explained. Informed consent was obtained. A final timeout was com pleted. The abdomen was prepped and draped in sterile fashion. 1% lidocaine was utilized for skin ane sthesia. Utilizing ultrasound guidance, a 5 Spanish safety centesis catheter was advanced into the left lower q uadrant pocket of ascites. Ultrasound images were obtained. 2 L of kate-colored ascites fluid was re moved, with 1 L sent to lab for analysis. The catheter was removed and Band-Aid applied. The patient tolerated the procedure well. Vital signs will be monitored postprocedure. IMPRESSION: Ultrasound-guided paracentesis as above. Performed, dictated, and signed by Claudio Jackson PA-C; to be co-signed by Dr. Nadir Colon. Electronically signed by: Nadir Colon M.D. 10/24/2024 3:17 PM
--- NOTE | 2024-10-24 15:27 | Hospitalist Progress Note ---
Date of Service October 24, 2024 Assessment & Plan (1) Ambulatory dysfunction: (2) Ascites: (3) Heart failure with improved ejection fraction (HFimpEF): (4) Chronic kidney disease, stage III (moderate): (5) Thrombocytopenia: (6) Paroxysmal A-fib: (7) Anemia: Plan This is an 89-year-old gentleman with past medical history of CHF, CKD, type 2 diabetes, dyslipidemia, A-fib, hypothyroidism who presented to the emergency department on 10/19/2024 with a chief complaint of ambulatory dysfunction. Recently hospitalized from 10/11/2024 to 10/16/2024 for weakness secondary to right-sided pleural effusion. Thoracentesis on 10/13was transudative etiology. Rehab was recommended at that time, but patient declined and went home # Ambulatory dysfunction Suspect multifactorial: Physical deconditioning from being in the hospital, as well as new onset of ascites Patient lives at home by himself, but his son (Osito) is currently visiting and helping with home management PT OT evaluations appreciate Patient reports he is now agreeable to rehab Originally, plan was for discharge to [facility] on Monday 10/23 However, given repeated episodes of hypothermia, hypotension, and new workup for liver cirrhosis/multiple myeloma, discharge has been delayed due to medical instability Did have a goals of care discussion with patient's son on 10/23 regarding invasive procedures/prognosis with heart failure, kidney disease, and newfound liver disease While patient's son/medical POA was appreciative of conversation, he reports he does not want to pursue palliative discussions at this time #Cirrhosis | Ascites | thrombocytopenia No history of heavy alcohol use MELD 3.0: 22 CTAP from 10/10/2024 with cirrhosis and ascites findings Personally reviewed A/P CTs from July, June, May 2024 No prior mention of liver cirrhosis Mention of small/incidental ascites INR elevated at 1.3 Thrombocytopenia at 38 - 43 Hepatitis panel negative on 10/15 Clinically, patient denies abdominal pain; NTP on exam; low suspicion for SBP Albumin 25% 87 gm IV x 2 days Paracentesis performed on 10/24 Awaiting peritoneal analysis Ammonia level WNL Unique presentation. It is unclear at this time if this is true liver cirrhosis causing ascites vs. patient's known HF (mitral regurgitation) as the etiology of his ascites. Patient's Bumex was also been recently due to CKD and rising Cr levels, which may also be contributory. Per discussion with Dr. Bates on 10/24, it is possible that patient is presenting with a multiple myeloma picture. Pancytopenic. Vague history of CLL (both patient and patient's son are unclear on details). Additional lab tests such as SPEP, UPEP, and peripheral blood smear ordered. #Episodes of hypothermia Acute on chronic v. ? Infectious etiology; 34.5 C on 10/19 and 34.6 F on 10/23 Code purple called on the evening of 10/19 Random cortisol level 14 Bare hugger patient warming system PRN Hydrocortisone 50 mg IV x 1 given on 10/23 Continue hydrocortisone 25 mg IV q12h (weaned from prior) #CKD stage IIIb | hypermagnesemia Baseline creatinine 1.9-2.2 Creatinine trend 2.18 -> 2.50 -> 2.11 Magnesium remains mildly elevated Continue to hold Bumex Trend BMP, magnesium #CHF/pleural effusion Baseline weight likely around 165lbs Last echocardiogram on 10/11/2024 revealed LVEF at 55 to 60%; moderate mitral regurg S/p thoracentesis 10/13 that was transudative. 2 days left of cefdinir course for "lung fluid". Gram stain negative. Daily weights, preferably standing Hold Bumex due to kidney function (as above) Given new finding of liver cirrhosis, patient is more likely to benefit from spironolactone than Bumex moving forward Follows w/ cardiology #Megaloblastic anemia Hgb trend 10.3 -> 10.2 -> 9.3 -> 8.9 MCV >100 Vitamin B12 and folate WNL 06/2024 No signs of active bleeding, however patient exhibits significant bruising of extremities on exam Eliquis has been discontinued in the setting of recurrent falls/ anemia/thrombocytopenia Close monitoring of patient's left hip hematoma; unchanged from prior Daily CBC #Hypothyroidism TSH elevated at 7.414 (improved from 10/10 @ 8.155) Continue Levothyroxine 75mcg Repeat TSH in 4-6 weeks outpatient #Right hip hematoma Noted on hip CT on 10/12; monitoring #Constipation Miralax increased to BID, monitor BM's #A fib In atrial fibrillation on arrival; rate control Eliquis has been discontinued (as above) DVT prophylaxis: Eliquis has been discontinued; teds Code: DNR/DNI Admission and Anticipated Discharge Date Admission Date: October 19, 2024 Supervising Physician Co-Signing Physician Notes Attending Attestation - Chart reviewed in detail, care plan d/w AMINA Gr. I agree w/ the crouch components of his documentation. Complex and medically fragile 89yo male with CKD and new-onset decompensated cirrhosis. Advise diagnostic paracentesis. Advise SPEP, UPEP, ferritin, JOHANNA level, etc as work-up for new cirrhosis. Check BSGs given elevated glucose levels. Recent hypothermia - TSH minimally elevated - doubt cause of hypothermia. Cortisol level >10 - doubt adrenal insufficiency as cause. Underlying infectious process leading to hypothermia? Hypothalamic dysfunction? Quinton Bates MD Subjective Mr. Encinas is resting in his chair this morning. He reports that he did not sleep much last night. He was able to ambulate 35 feet with PT this morning, but is still feeling very weak, and has difficulty pulling himself up in bed. He repor ts that it feels uncomfortable laying in bed, as he has limited mobility. Last BM was last night, but he is still feeling quite constipated. Additionally, while he denies abdominal pain, he reports he has abdominal "discomfort" due to resistance when bending. Son also reports that, at home, the patient was previously complaining of some chest tightness. ROS Patient endorses trouble standing up, generalized weakness, abdominal discomfort when bending. Patient denies fever, chills, night sweats, dizziness/lightheadedness with movements, chest pain, chest palpitations, pleuritic CP, cough, abdominal pain, abdominal pain, N/V/D, pain in the legs with standing, changes in urinary or bowel habits, or numbness or tingling the arms or legs. Spoke in depth with both patient and patient's son at bedside regarding paracentesis today. Informed them why the procedure was being done, and potential risks/benefits of procedure. Both son/medical POA and the patient are amenable to having paracentesis done at this time. Review of Systems Review of Systems: See HPI above Physical Exam Physical Exam: General: no acute distress; pleasant affect; non-toxic appearing; frail appearing; cooperative; SpO2 97% on RA HEENT: normocephalic, atraumatic; no scleral icterus; PERRLA; vision intact; hard of hearing Neck: supple; trachea midline Skin: Purple bruising noted on the right dorsal forearm and right bicep; also noted on the right lateral lower extremity; warm, dry without signs of tenting; no cyanosis CV: chest wall NTP; irregularly irregular rhythm; S1/S2 normal; no murmurs/rubs/gallops; pulses intact and symmetric at radial, DP, and PT Lungs: no acute respiratory distress; symmetrical chest wall expansion; clear breath sounds across all lung kendrick w/o adventitious sounds; no wheezing ABD: Soft, NTP in all 4 quadrants; BS present; no rebound/guarding; moderate distention; tympanic to percussion of the abdomen MSK: no tics or fasciculations; +3 pitting edema extending up to the thighs bila terally, not erythematous but with significant bruising/hematoma on the right lower extremity; patient demonstrates ability to lift legs from a seated position bilaterally against resistance, albeit with some pain Left hip: Hematoma noted on the left hip; bulging, spherical, approximately 3 cm diameter; ecchymosis and bruising; without erythema; NTP Neuro: A&Ox3; flat mood and affect; occasionally garbled speech; no focal deficits; patient reports sensation is intact and symmetric in the lower extremities bilaterally Results & Data Results & Data Vital Signs (Past 12 Hours) Vital Signs Temp Pulse Resp BP Pulse Ox O2 Del Method 10/24/24 14:46 36.3 C L 93 H 16 130/92 98 Room Air 10/24/24 08:03 36.3 C L 97 H 16 112/69 95 Room Air 10/24/24 05:04 36.3 C L PG Care Time/CCT Total # of Minutes Spent Total Time Spent with Patient: Total time spent is greater than 50% in coordination of care (as documented) at patient's floor/unit and/or counseling patient: Coding [place] [address] SUB INP/OBS CARE 3/50MIN Patient Type Established Medical Decision Making High Complexity Diagnoses Ambulatory dysfunction R26.2 Ascites R18.8 Heart failure with improved ejection fraction (HFimpEF) I50.32 Chronic kidney disease, stage III (moderate) N18.30 Thrombocytopenia D69.6 Paroxysmal A-fib I48.0 Anemia D64.9
[2024-10-24 15:40] LABS: Total Protein Peritoneal Fluid < 3.0 gm/dl
[2024-10-24 15:49] LABS: Appearance Peritoneal Fluid Cloudy; Color Peritoneal Fluid Red; RBC Peritoneal Fluid Auto 30000 /uL; WBC Peritoneal Fluid Auto 41 /ul (0-300)
[2024-10-25 06:45] LABS: Lymphocytes, Fluid 15 %; Mono,Macrophage,Mesothelial 45 %; Neutrophils, Fluid 40 %
[2024-10-25 07:36] LABS: Basophils # (auto) 0.01 K/uL (0.00-0.20); Basophils % (auto) 0.1 %; Eosinophils # (auto) 0.09 K/uL (0.00-0.50); Hematocrit (blood only) 30.3 % (42.0-52.0); Immature Granulocytes # (auto) 0.06 K/uL (0.01-0.20); Immature Granulocytes % (auto) 0.7 %; Lymphocytes # (auto) 0.63 K/uL (1.20-3.40); Lymphocytes % (auto) 7.1 %; Mean Corpuscular Hemoglobin 33.9 pg (25.0-34.0); Mean Corpuscular Volume 102.7 fL (80.0-100.0); Monocytes # (auto) 0.53 K/uL (0.11-0.59); Neutrophils # (auto) 7.56 K/uL (1.40-6.50); Neutrophils % (auto) 85.1 %; Platelet Count 59 K/uL (130-400); RDW Standard Deviation 70.7 fL (36.4-46.3); Red Blood Count 2.95 M/uL (4.70-6.10); White Blood Count 8.88 K/ul (4.8-10.8)
[2024-10-25 08:50] LABS: Albumin Globulin Ratio 2.5 (0.9-2); BUN Creatinine Ratio 34.6 (10-20); Bilirubin,Total 2.8 mg/dl (0.2-1.0); Calcium 9.3 mg/dl (8.6-10.3); Creatinine Clr Calc Pharmacy 26.1 ml/min; Globulin 1.7 gm/dl (2.5-4.0); Potassium 4.4 mmol/L (3.5-5.1)
[2024-10-25] MEDS: INSULIN ASPART PER UNIT CHARGE SC STA (12:07)
[2024-10-25] MEDS: SPIRONOLACTONE 25 MG TAB PO ONE (13:32)
[2024-10-25] MEDS: FUROSEMIDE 20 MG TAB PO STA (13:32)
--- NOTE | 2024-10-25 14:48 | Hospitalist Progress Note ---
Date of Service October 25, 2024 Assessment & Plan (1) Ambulatory dysfunction: (2) Ascites: (3) Heart failure with improved ejection fraction (HFimpEF): (4) Chronic kidney disease, stage III (moderate): (5) Thrombocytopenia: (6) Paroxysmal A-fib: (7) Anemia: Plan This is an 89-year-old gentleman with past medical history of CHF, CKD, type 2 diabetes, dyslipidemia, A-fib, hypothyroidism who presented to the emergency department on 10/19/2024 with a chief complaint of ambulatory dysfunction. Recently hospitalized from 10/11/2024 to 10/16/2024 for weakness secondary to right-sided pleural effusion. Thoracentesis on 10/13was transudative etiology. Rehab was recommended at that time, but patient declined and went home. # Ambulatory dysfunction Suspect multifactorial: Physical deconditioning from being in the hospital, as well as new onset of ascites Patient lives at home by himself, but his son (Osito) is currently visiting and helping with home management PT OT evaluations appreciate Patient reports he is now agreeable to rehab Originally, plan was for discharge to [facility] on Monday 10/23 However, given repeated episodes of hypothermia, hypotension, and new workup for liver cirrhosis/multiple myeloma, discharge has been delayed due to medical instability Did have a goals of care discussion with patient's son on 10/23 and 10/25 regarding invasive procedures/prognosis with heart failure, kidney disease, and newfound liver disease While patient's son/medical POA was appreciative of conversation, he reports he does not want to pursue palliative discussions at this time #New Liver Cirrhosis | Ascites | thrombocytopenia No history of heavy alcohol use MELD 3.0: 22 CTAP from 10/10/2024 with cirrhosis and ascites findings Personally reviewed A/P CTs from July, June, May 2024 No prior mention of liver cirrhosis Mention of small/incidental ascites Reach out to our radiology team to have the CT A/P reread; reconfirmed that this is new liver cirrhosis (only subtlety imaged on prior imaging) INR elevated at 1.3 Thrombocytopenia oscillating between 30-60 Hepatitis panel negative on 10/15 Clinically, patient denies abdominal pain; NTP on exam Albumin 25% 87 gm IV x 2 days Paracentesis performed on 10/24; 2 L removed Peritoneal fluids red/cloudy in appearance (? Traumatic tap); BP stable postop No WBCs to suggest SBP; culture pending Patient reports no abdominal pain on the morning of 10/25 following his procedure; abdominal discomfort has improved SAAG score >1.1g/dL; suggestive of portal hypertension Ammonia level WNL Initiate lactulose 30 g daily GI consult appreciated for new onset of liver cirrhosis Unique presentation. It is unclear at this time if this is true liver cirrhosis causing ascites vs. patient's known HF (mitral regurgitation) as the etiology of his ascites. Patient's Bumex was also been recently due to CKD and rising Cr levels, which may also be contributory. Per discussion with Dr. Bates on 10/24, it is possible that patient is presenting with a multiple myeloma picture. Pancytopenic. Vague history of CLL (both patient and patient's son are unclear on details). Additional lab tests such as SPEP, UPEP, and peripheral blood smear ordered. #CKD stage IIIb | Hypermagnesemia Baseline creatinine 1.9-2.2 Creatinine trend 2.18 -> 2.50 -> 2.11 Magnesium remains mildly elevated DC'd Bumex Initiate Lasix 20 mg and spironolactone 25 mg; kidney function stable on 10/25; monitor Trend BMP, magnesium #Episodes of hypothermia Acute on chronic v. ? Infectious etiology; 34.5 C on 10/19 and 34.6 F on 10/23 Code purple called on the evening of 10/19 Random cortisol level 14 Bare hugger patient warming system PRN Hydrocortisone 50 mg IV x 1 given on 10/23 Continue hydrocortisone 25 mg IV q12h (weaned from prior) #CHF/pleural effusion Baseline weight likely around 165lbs Last echocardiogram on 10/11/2024 revealed LVEF at 55 to 60%; moderate mitral regurg S/p thoracentesis 10/13 that was transudative. 2 days left of cefdinir course for "lung fluid". Gram stain negative. Daily weights, preferably standing Hold Bumex due to kidney function (as above) Given new finding of liver cirrhosis, patient is more likely to benefit from spironolactone than Bumex moving forward Follows w/ cardiology #Megaloblastic anemia Hgb trend 10.3 -> 10.2 -> 9.3 -> 8.9 -> 10.0 MCV >100 Vitamin B12 and folate WNL 06/2024 No signs of active bleeding, however patient exhibits significant bruising of extremities on exam Eliquis has been discontinued in the setting of recurrent falls /anemia/thrombocytopenia Close monitoring of patient's left hip hematoma; unchanged from prior Daily CBC #Hypothyroidism TSH elevated at 7.414 (improved from 10/10 @ 8.155) Continue Levothyroxine 75mcg Repeat TSH in 4-6 weeks outpatient #Right hip hematoma Noted on hip CT on 10/12; monitoring #Constipation Miralax increased to BID, monitor BM's #A fib In atrial fibrillation on arrival; rate control Eliquis has been discontinued (as above) Disposition: Guarded prognosis; continued stay on MSO due to liver workup / medical fragility DVT prophylaxis: Eliquis has been discontinued; teds Code: DNR/DNI Admission and Anticipated Discharge Date Admission Date: October 19, 2024 Supervising Physician Co-Signing Physician Notes Attending Attestation - Chart reviewed in detail, care plan d/w AMINA Gr. I agree w/ the crouch components of his documentation. Complex and medically fragile 89yo male with CKD and new-onset decompensated cirrhosis. s/p diagnostic paracentesis - SAAG c/w portal HTN. Await SPEP, UPEP, etc. Appreciate GI consult/recs. Strongly recommend palliative care consult as prognosis is poor given cirrhosis in 89yo male. Quinton Bates MD Subjective Mr. Encinas is sitting upright in his chair this afternoon. He reports no pain at this time. He reports that the procedure went well yesterday, and that his stomach is feeling better today. No abdominal pain. No abdominal discomfort. However, he still expresses frustration and the fact that he has trouble ambulat ing in the halls with physical therapy. He reports he can only walk "20 feet" with his walker up and down the halls, and this is a new change from his baseline earlier this year. ROS: Patient endorses lower extremity edema, generalized fatigue, trouble getting up, and ambulatory dysfunction Patient denies fever, chills, night sweats, chest pain, chest palpitations, SOB, cough, abdominal pain, N/V/D, or changes in urinary bowel habits. Long discussion took place later in the day after patient's labs came back regarding new liver cirrhosis prognosis. See advance care planning note on 10/25 for full details. Review of Systems Review of Systems: See HPI above Physical Exam Physical Exam: General: no acute distress; pleasant affect; non-toxic appearing; frail appearing; cooperative; SpO2 97% on RA HEENT: normocephalic, atraumatic; no scleral icterus; PERRLA; vision intact; hard of hearing Neck: supple; trachea midline Skin: Purple bruising noted on the right dorsal forearm and right bicep; also noted on the right lateral lower extremity; warm, dry without signs of tenting; no cyanosis CV: chest wall NTP; irregularly irregular rhythm; S1/S2 normal; no murmurs/rubs/gallops; pulses intact and symmetric at radial, DP, and PT Lungs: no acute respiratory distress; symmetrical chest wall expansion; clear breath sounds across all lung kendrick w/o adventitious sounds; no wheezing ABD: Soft, NTP in all 4 quadrants; BS present; no rebound/guarding; moderate distention; tympanic to percussion of the abdomen MSK: no tics or fasciculations; +3 pitting edema extending up to the thighs bilaterally, not erythematous but with significant bruising/hematoma on the right lower extremity; patient demonstrates ability to lift legs from a seated position bilaterally against resistance, albeit with some pain Left hip: Hematoma noted on the left hip; bulging, spherical, approximately 3 cm diameter; ecchymosis and bruising; without erythema; NTP Neuro: A&Ox3; flat mood and affect; occasionally garbled speech; negative clonus; patient reports sensation is intact and symmetric in the lower extremities bilaterally Results & Data Results & Data Vital Signs (Past 12 Hours) Vital Signs Temp Pulse Resp BP Pulse Ox O2 Del Method 10/25/24 07:44 36.3 C L 109 H 18 109/77 93 Room Air 10/25/24 06:01 36.4 C L PG Care Time/CCT Total # of Minutes Spent Total Time Spent with Patient: Total time spent is greater than 50% in coordination of care (as documented) at patient's floor/unit and/or counseling patient: C[place] [address] SUB INP/OBS CARE 3/50MIN Patient Type Established Medical Decision Making High Complexity Diagnoses Ambulatory dysfunction R26.2 Ascites R18.8 Heart failure with improved ejection fraction (HFimpEF) I50.32 Chronic kidney disease, stage III (moderate) N18.30 Thrombocytopenia D69.6 Paroxysmal A-fib I48.0 Anemia D64.9
--- NOTE | 2024-10-25 16:08 | Gastrointestinal Consultation ---
Date of Consultation October 25, 2024 Assessment & Plan (1) Cirrhosis: Likely etiology for his liver disease is metabolic associated fatty liver disease. It is the most common when chronic viral hepatitis has been excluded. He has a history of diabetes and is sugars are elevated on this admission which supports it. Paracentesis revealed the albumin gradient of 2.3 which supports portal hypertension. The low protein level in the ascites supports primary liver disease instead of cardiac disease as the cause. Other etiologies less likely are hemochromatosis in light of lack of iron in the liver on CT scan. CLL can be associated with liver disease due to adenopathy or infiltration of the liver with lymphocytes. You can get regenerative nodules that can lead to portal hypertension although I think this would be a less likely cause. I suspect that his hydrothorax could be related to his liver disease or his liver failure on his last admission. Because of the etiology the treatment is essentially the same low-sodium diet and gentle diuresis in light of his underlying kidney disease. Will follow 3. History of Present Illness Reason for Consultation: New diagnosis of cirrhosis Attending Physician: Quinton Bates MD History of Present Illness Patient admitted to the hospital with weakness and fatigue. Imaging suggested cirrhosis with ascites. Recently presented to the hospital with a right hydrothorax which was drained. Denies any history of liver disease no significant alcohol abuse. Recent hepatitis viral serologies were negative. Does have a history of significant heart disease with failure, diabetes, chronic kidney disease and CLL. He has undergone a paracentesis here in the hospital. Allergies Allergy/AdvReac Type Severity Reaction Status Date / Time Sulfa (Sulfonamide Allergy Intermediate HIVES Verified 10/19/24 16:13 Antibiotics) Home Medications Medication Instructions Recorded Confirmed Type mecobalamin (vitamin B12) 5,000 2,500 mcg (1/2 x 5,000 mcg) PO Q 03/29/23 10/19/24 Rx mcg disintegrating tablet OTHER DAY #1 tab lancets 33 gauge (OneTouch Delica #100 ea 08/18/23 10/11/24 Rx Plus Lancet) [id number] 250 mg-dha 90 1 cap PO DAILY 09/11/23 10/19/24 History mg-epa 160 [id number]-[id number] capsule (Ocuvite Adult 50 Plus) polyethylene glycol 3350 17 17 g PO DAILY PRN constipation 12/20/23 10/19/24 Rx gram/dose oral powder (Miralax) #238 grams blood sugar diagnostic (OneTouch #100 ea 12/29/23 10/11/24 Rx Verio test strips) levothyroxine 75 mcg tablet 75 mcg PO DAILY #90 tabs 06/14/24 10/19/24 Rx buspirone 5 mg tablet 5 mg PO HS PRN sleep #30 tabs 08/20/24 10/19/24 Rx apixaban 2.5 mg tablet (Eliquis) 2.5 mg PO BID #180 tabs 09/13/24 10/19/24 Rx cefdinir 300 mg capsule 300 mg PO BID 5 days #10 caps 10/16/24 10/19/24 Rx bumetanide 1 mg tablet 1 mg PO DIRECTED 10/19/24 10/19/24 History docusate sodium 100 mg capsule 100 mg PO DAILY 10/19/24 10/19/24 History (Colace) Patient History Medical History Elevated troponin I level Anasarca Pulmonary edema Constipation Hyperkalemia Pleural effusion Syncope Contusion of head Elevated troponin APPLE (acute kidney injury) Hypothermia Fall Joint pain in fingers of left hand Hyperkalemia Hip hematoma, left Normocytic anemia Hyponatremia Sleep disturbances CKD (chronic kidney disease) Right heart failure Cellulitis, leg Hematoma of left lower leg Fall at home Anasarca Hyperbilirubinemia Localized swelling of both lower legs Elevated LFTs Non-ST elevation MN (NSTEMI) History of cardioversion 07/18/23, [facility] Anticoagulant long-term use eliquis History of anesthesia reaction reports constipation, sleep disturbances and vission changes x 1 year following removal of loose body LLE 2000 History of gout Pancreatic cyst Constipation IBS (irritable bowel syndrome) DM type 2 (diabetes mellitus, type 2) diet controlled, no meds HLD (hyperlipidemia) Leukemia, chronic lymphoid, in remission pt denies per heme records- "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 Monae--on BB and eliquis Benign essential hypertension Surgical History History of lymph node excision 01/2023 off right chest History of surgery removal loose body x 2 LLE History of cataract surgery History of left hip replacement History of right hip replacement History of right mastectomy History of colonoscopy Family History Other No family history of adverse response to anesthesia Denies family history of Ovarian cancer Prostate cancer Breast cancer Lung cancer Colorectal cancer Social History Smoking Status: Never smoker Second Hand Exposure: No; Do You Dip or Chew Tobacco: No; Hx Alcohol Use: No Hx Substance Use: No Preferred Language: Kinyarwanda Communication Ability: Effective Visual Impairment: No Limitations Hearing Ability: Normal Home Attendant Required: No Beliefs That Will Affect Care: None marital status: / Current Living Situation: Alone Current Living Situation Comment: Home alone 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 How many Children do You have Comment: one son Feels Safe at Home: Yes Diet: diabetic caffeine: No Physical Activity Frequency: Does not Exercise Seatbelt Use: always Sunscreen Use: No Do you think of yourself as: straight/heterosexual Gender Identity: Male Assistive Devices: Glasses and Walker Review of Systems Review of Systems: No fever No chills No SOB No CP No Abd pain Physical Exam Physical Exam: Eyes; anicteric HENT No masses Chest clear to A Cor S1, S2 physiologic Abd: softer nontender no masses mild distention probable ascites Ext moderate lower extremity edema Results & Data Vital Signs (Past 12 Hours) Vital Signs Temp Pulse Resp BP Pulse Ox O2 Del Method 10/25/24 14:52 36.3 C L 119 H 18 119/85 99 Room Air 10/25/24 07:44 36.3 C L 109 H 18 109/77 93 Room Air 10/25/24 06:01 36.4 C L PG Care Time/CCT Total # of Minutes Spent Total Time Spent with Patient: Total time spent is greater than 50% in coordination of care (as documented) at patient's floor/unit and/or counseling patient: Coding Level of Care Code 71825 INT INP/OBS CARE 3/75MIN Diagnoses Cirrhosis K74.60
[2024-10-25] MEDS: LACTULOSE SYRUP 20 GM/30 ML UDC PO STA (16:24)
--- NOTE | 2024-10-25 17:00 | Advance Care Plan Prog Note ---
Advanced Care Planning Note Date of Discussion October 25, 2024 ACP Discussion Diagnoses requiring ACP discussion: New onset of liver cirrhosis, heart failure, and acute on chronic kidney disease A [id number] discussion with the patient and patient's son/medical power of grocery clerk marking (Osito) regarding the patient's advanced care planning took place during this hospitalization on the above date. The discussion included the explanation and discussion of advance directives and associated forms/documents, as well as the patient's current code status. We also discussed at length the patient's medical conditions (both acute and chronic), general prognosis, treatment options, and goals of care. The following summarizes the discussion: Initially, the conversation of goals of care was broached with the patient's son over the phone on Monday 10/23. Son reported that his father has had a general decline over the past 5 months (since the beginning of the year). Prior to this, he was in a fairly decent state of health; was driving, and spending time with friends and family. However, he has required 7 hospitalizations in the past 5 months, and has been declining both physically and mentally over that period of time. Patient's newfound liver cirrhosis was discussed at this time, and son expressed a desire to have this worked up in the hospital. A [id number] GOC conversation was again held on Wednesday 10/25 involving both the patient and patient's son. At this time, information regarding labs and imaging was shared suggested in a guarded prognosis. The patient was informed that he had a MELD score of 22, and a LUCILA-C ACLF score of 52 (two indicators of morbidity with liver failure). He was also told he had a LACE score of 15, and that (even if he were discharged to a custodial facility) his chance of re-hospitalization was very high. It was explained that these scores are not perfect (for instance, the MELD score tends to focus on patients awaiting liver transplant); however, all scores pointed to the fact that - given his advanced age and medical comorbidities (CHF, CKD, and newfound liver cirrhosis), his probability of mortality was greater than 50% within the next year. Education was provided to the patient and family regarding treatment plans, but it was stressed that the care for something like liver cirrhosis is a liver transplant. Based on our workup, we are expecting his condition to progress and likely worsen over the next several months. This could lead to fluid imbalances, cardiac decompensation, and repeated procedures such as thoracenteses and paracentesis (both of which he has had over the past 2 weeks). Patient was asked to repeat back his understanding of his conditions, but struggled with this task. He reiterates that his main reason for hospitalization is ambulatory dysfunction. He does understand that he has dysfunction in his heart, liver, and kidneys, but has a difficult time articulating this back in conversation. When discussing goals of care, and focusing on quality over quantity of life, he reports that he has been comfortable while in the hospital, and that procedures such as the paracentesis performed yesterday were "not painful". In other words, he would be willing to have repeat procedures such as this one, as long as it contributed to overall comfort and quality of life. A separate discussion was held with the patient's son/medical POA following bedside conversation. Son was appreciative of the discussion. At this time, given his father is comfortable and pain-free, he would like to continue to pursue medical interventions and treatments as they are required from [id number]. Resources were offered regarding palliative care specialists/paperwork; however, son would like to give his father time to adjust to his new baseline before these discussions take place. Status Resuscitation Status DNR/DNI No Resuscitation Total Time I spent a total of 60 minutes was spent on this discussion, including counseling, answering questions, and completing, if any, pertinent advanced care planning forms/documents.
--- NOTE | 2024-10-26 08:05 | Gastroenterology Progress Note ---
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 Clinically stable. Commend continuing low-sodium diet and careful diuresis. Admission and Anticipated Discharge Date Admission Date: October 19, 2024 Subjective Resting comfortably denies abdominal pain shortness of breath or chest pain Physical Exam Physical Exam: No acute distress Respiratory rate regular Cardiac rhythm regular Abdomen soft nontender Results & Data Results & Data Vital Signs (Past 12 Hours) Vital Signs Temp Pulse Resp BP Pulse Ox O2 Del Method 10/26/24 07:49 36.3 C L 92 H 16 85/58 L 96 Room Air 10/26/24 07:48 36.3 C L 10/25/24 21:59 36.5 C 104 H 18 108/74 97 Room Air Laboratory Results Laboratory Results - last 48 hr 10/24/24 10/24/24 10/24/24 07:30 13:30 Unknown WBC RBC Hgb Hct MCV MCH MCHC RDW Std Deviation RDW Coeff of Gilbert Plt Count MPV Immature Gran % (Auto) Neut % (Auto) Lymph % (Auto) Meagher % (Auto) Eos % (Auto) Baso % (Auto) Neut # (Auto) Lymph # (Auto) Meagher # (Auto) Eos # (Auto) Baso # (Auto) Immature Gran # (Auto) Polychromasia 1+ Macrocytosis Present Target Cells 1+ Ovalocytes 1+ Acanthocytes (Spur) 1+ Peripher Smr Path Cons ESR < 1 PT 14.0 H INR 1.3 H Sodium 136 Potassium 4.6 Chloride 102 Carbon Dioxide 26 Anion Gap 8 BUN 76 H Creatinine 2.11 H D Est Cr Clr Drug Dosing 26.1 eGFR 29.37 BUN/Creatinine Ratio 36.0 H Glucose 258 H POC Glucose Calcium 9.3 Magnesium 2.8 H Ferritin 160.7 Total Bilirubin 2.0 H AST 52 H ALT 46 Alkaline Phosphatase 84 C-Reactive Protein < 0.50 Total Protein 6.3 Albumin 4.6 Globulin 1.7 L Albumin/Globulin Ratio 2.7 H U Random Total Protein 69.3 H Fluid Neutrophils % 40 Fluid Lymphocytes % 15 Fluid Meso/Macro/Meagher % 45 Fluid Comment Peritoneal Color Red Peritoneal Appearance Cloudy Peritoneal WBC (Auto) 41 Peritoneal RBC (Auto) 45808 Peritoneal Tot Protein < 3.0 Peritoneal Albumin 2.0 Miscellaneous Test Cancelled 10/25/24 10/25/24 10/25/24 06:31 06:33 07:43 WBC 8.88 RBC 2.95 L Hgb 10.0 L Hct 30.3 L MCV 102.7 H MCH 33.9 MCHC 33.0 RDW Std Deviation 70.7 H RDW Coeff of Gilbert 19.0 H Plt Count 59 L MPV 13.0 H Immature Gran % (Auto) 0.7 Neut % (Auto) 85.1 Lymph % (Auto) 7.1 Meagher % (Auto) 6.0 Eos % (Auto) 1.0 Baso % (Auto) 0.1 Neut # (Auto) 7.56 H Lymph # (Auto) 0.63 L Meagher # (Auto) 0.53 Eos # (Auto) 0.09 Baso # (Auto) 0.01 Immature Gran # (Auto) 0.06 Polychromasia Macrocytosis Target Cells Ovalocytes Acanthocytes (Spur) Peripher Smr Path Cons ESR PT INR Sodium 139 Potassium 4.4 Chloride 104 Carbon Dioxide 27 Anion Gap 8 BUN 73 H Creatinine 2.11 H Est Cr Clr Drug Dosing 26.1 eGFR 29.37 BUN/Creatinine Ratio 34.6 H Glucose 228 H POC Glucose 225 H Calcium 9.3 Magnesium Ferritin Total Bilirubin 2.8 H AST 46 H ALT 45 Alkaline Phosphatase 97 C-Reactive Protein Total Protein 6.0 Albumin 4.3 Globulin 1.7 L Albumin/Globulin Ratio 2.5 H U Random Total Protein Fluid Neutrophils % Fluid Lymphocytes % Fluid Meso/Macro/Meagher % Fluid Comment Peritoneal Color Peritoneal Appearance Peritoneal WBC (Auto) Peritoneal RBC (Auto) Peritoneal Tot Protein Peritoneal Albumin Miscellaneous Test 10/25/24 10/25/24 10/25/24 11:32 11:32 11:33 WBC RBC Hgb Hct MCV MCH MCHC RDW Std Deviation RDW Coeff of Gilbert Plt Count MPV Immature Gran % (Auto) Neut % (Auto) Lymph % (Auto) Meagher % (Auto) Eos % (Auto) Baso % (Auto) Neut # (Auto) Lymph # (Auto) Meagher # (Auto) Eos # (Auto) Baso # (Auto) Immature Gran # (Auto) Polychromasia Macrocytosis Target Cells Ovalocytes Acanthocytes (Spur) Peripher Smr Path Cons ESR PT INR Sodium Potassium Chloride Carbon Dioxide Anion Gap BUN Creatinine Est Cr Clr Drug Dosing eGFR BUN/Creatinine Ratio Glucose POC Glucose 437 H* 334 H* 341 H* Calcium Magnesium Ferritin Total Bilirubin AST ALT Alkaline Phosphatase C-Reactive Protein Total Protein Albumin Globulin Albumin/Globulin Ratio U Random Total Protein Fluid Neutrophils % Fluid Lymphocytes % Fluid Meso/Macro/Meagher % Fluid Comment Peritoneal Color Peritoneal Appearance Peritoneal WBC (Auto) Peritoneal RBC (Auto) Peritoneal Tot Protein Peritoneal Albumin Miscellaneous Test 10/25/24 10/25/24 10/25/24 14:46 16:44 20:53 WBC RBC Hgb Hct MCV MCH MCHC RDW Std Deviation RDW Coeff of Gilbert Plt Count MPV Immature Gran % (Auto) Neut % (Auto) Lymph % (Auto) Meagher % (Auto) Eos % (Auto) Baso % (Auto) Neut # (Auto) Lymph # (Auto) Meagher # (Auto) Eos # (Auto) Baso # (Auto) Immature Gran # (Auto) Polychromasia Macrocytosis Target Cells Ovalocytes Acanthocytes (Spur) Peripher Smr Path Cons ESR PT INR Sodium Potassium Chloride Carbon Dioxide Anion Gap BUN Creatinine Est Cr Clr Drug Dosing eGFR BUN/Creatinine Ratio Glucose POC Glucose 278 H 297 H 264 H Calcium Magnesium Ferritin Total Bilirubin AST ALT Alkaline Phosphatase C-Reactive Protein Total Protein Albumin Globulin Albumin/Globulin Ratio U Random Total Protein Fluid Neutrophils % Fluid Lymphocytes % Fluid Meso/Macro/Meagher % Fluid Comment Peritoneal Color Peritoneal Appearance Peritoneal WBC (Auto) Peritoneal RBC (Auto) Peritoneal Tot Protein Peritoneal Albumin Miscellaneous Test 10/26/24 07:57 WBC RBC Hgb Hct MCV MCH MCHC RDW Std Deviation RDW Coeff of Gilbert Plt Count MPV Immature Gran % (Auto) Neut % (Auto) Lymph % (Auto) Meagher % (Auto) Eos % (Auto) Baso % (Auto) Neut # (Auto) Lymph # (Auto) Meagher # (Auto) Eos # (Auto) Baso # (Auto) Immature Gran # (Auto) Polychromasia Macrocytosis Target Cells Ovalocytes Acanthocytes (Spur) Peripher Smr Path Cons ESR PT INR Sodium Potassium Chloride Carbon Dioxide Anion Gap BUN Creatinine Est Cr Clr Drug Dosing eGFR BUN/Creatinine Ratio Glucose POC Glucose 154 H Calcium Magnesium Ferritin Total Bilirubin AST ALT Alkaline Phosphatase C-Reactive Protein Total Protein Albumin Globulin Albumin/Globulin Ratio U Random Total Protein Fluid Neutrophils % Fluid Lymphocytes % Fluid Meso/Macro/Meagher % Fluid Comment Peritoneal Color Peritoneal Appearance Peritoneal WBC (Auto) Peritoneal RBC (Auto) Peritoneal Tot Protein Peritoneal Albumin Miscellaneous Test PG Care Time/CCT Total # of Minutes Spent Total Time Spent with Patient: Total time spent is greater than 50% in coordination of care (as documented) at patient's floor/unit and/or counseling patient: Coding Level of Care Code 84118 SUB INP/OBS CARE 2/35MIN Diagnoses Cirrhosis K74.60
[2024-10-26] MEDS: HYDROCORTISONE SOD 25 MG in SYRINGE 0 ML IV STA (08:48)
[2024-10-26] MEDS: LACTULOSE SYRUP 20 GM/30 ML UDC PO SCH (08:48)
[2024-10-26] MEDS ORDERED: GLUCAGON FOR INJ 1 MG VIAL SQ PRN (10:51)
[2024-10-26] MEDS ORDERED: GLUCOSE 10 TAB/TUBE PO PRN (10:51)
[2024-10-26] MEDS ORDERED: DEXTROSE 50% 50 ML SYRINGE IV PRN (10:51)
[2024-10-26] MEDS ORDERED: CARBOHYDRATES FOR HYPOGLYCEMIA PO PRN (10:51)
[2024-10-26] MEDS ORDERED: GLUCOSE 40% GEL 15 GM TUBE PO PRN (10:51)
[2024-10-26 11:31] LABS: Hematocrit (blood only) 30.3 % (42.0-52.0); Hemoglobin 10.1 g/dl (14.0-18.0); Mean Corpuscular Hemoglobin 34.4 pg (25.0-34.0); Mean Corpuscular Hgb Conc 33.3 g/dL (32.0-36.0); Mean Corpuscular Volume 103.1 fL (80.0-100.0); Mean Platelet Volume 12.8 fL (9.4-12.4); Platelet Count 68 K/uL (130-400); RDW Coefficient of Variation 18.9 % (11.5-14.5); RDW Standard Deviation 70.4 fL (36.4-46.3); Red Blood Count 2.94 M/uL (4.70-6.10); White Blood Count 6.16 K/ul (4.8-10.8)
[2024-10-26 11:42] LABS: BUN Creatinine Ratio 37.3 (10-20); Bilirubin,Total 3.3 mg/dl (0.2-1.0); Calcium 9.2 mg/dl (8.6-10.3); Creatinine Clr Calc Pharmacy 28.5 ml/min; Total Protein 6.1 gm/dl (6.0-8.3)
--- NOTE | 2024-10-26 12:18 | Hospitalist Progress Note ---
Date of Service October 26, 2024 Assessment & Plan (1) Ambulatory dysfunction: (2) Ascites: (3) Heart failure with improved ejection fraction (HFimpEF): (4) Chronic kidney disease, stage III (moderate): (5) Thrombocytopenia: (6) Paroxysmal A-fib: (7) Anemia: Plan This is an 89-year-old gentleman with past medical history of CHF, CKD, type 2 diabetes, dyslipidemia, A-fib, hypothyroidism who presented to the emergency department on 10/19/2024 with a chief complaint of ambulatory dysfunction. Recently hospitalized from 10/11/2024 to 10/16/2024 for weakness secondary to right-sided pleural effusion. Thoracentesis on 10/13was transudative etiology. Rehab was recommended at that time, but patient declined and went home. # Ambulatory dysfunction Suspect multifactorial: Physical deconditioning from being in the hospital, as well as new onset of ascites Patient lives at home by himself, but his son (Osito) is currently visiting and helping with home management PT OT evaluations appreciate Patient reports he is now agreeable to rehab Originally, plan was for discharge to [facility] on Monday 10/23 However, given repeated episodes of hypothermia, hypotension, and new workup for liver cirrhosis/multiple myeloma, discharge has been delayed due to medical instability Did have a goals of care discussion with patient's son on 10/23 and 10/25 regarding invasive procedures/prognosis with heart failure, kidney disease, and newfound liver disease While patient's son/medical POA was appreciative of conversation, he reports he does not want to pursue palliative discussions at this time #New Liver Cirrhosis | Ascites | thrombocytopenia No history of heavy alcohol use MELD 3.0: 22 CTAP from 10/10/2024 with cirrhosis and ascites findings Personally reviewed A/P CTs from July, June, May 2024 No prior mention of liver cirrhosis Mention of small/incidental ascites Reach out to our radiology team to have the CT A/P reread; reconfirmed that this is new liver cirrhosis (only subtlety imaged on prior imaging) INR elevated at 1.3 Thrombocytopenia oscillating between 30-60 Hepatitis panel negative on 10/15 Clinically, patient denies abdominal pain; NTP on exam Albumin 25% 87 gm IV x 2 days Paracentesis performed on 10/24; 2 L removed Peritoneal fluids red/cloudy in appearance (? Traumatic tap); BP stable postop No WBCs to suggest SBP; culture pending Patient reports no abdominal pain on the morning of 10/25 following his procedure; abdominal discomfort has improved SAAG score >1.1g/dL; suggestive of portal hypertension Ammonia level WNL Initiate lactulose 30 g daily GI consult appreciated for new onset of liver cirrhosis Suspected etiology is metabolic in nature; ? uncontrolled diabetes Unique presentation. It is unclear at this time if this is true liver cirrhosis causing ascites vs. patient's known HF (mitral regurgitation) as the etiology of his ascites. Patient's Bumex was also been recently due to CKD and rising Cr levels, which may also be contributory. Per discussion with Dr. Bates on 10/24, it is possible that patient is presenting with a multiple myeloma picture. Pancytopenic. Vague history of CLL (both patient and patient's son are unclear on details). Additional lab tests such as SPEP, UPEP, and peripheral blood smear ordered #Diabetes | hyperglycemia Diet controlled at home Last A1c 6.1% on 09/03/2024 Added on loose ISS on 10/26 with target BSG range 110- 180 BSG ACHS Adjust regimen as needed #CKD stage IIIb | Hypermagnesemia | LE edema Baseline creatinine 1.9-2.2 Creatinine trend 2.18 -> 2.50 -> 2.11 -> 1.93 Magnesium remains mildly elevated DC'd Bumex Continue Lasix 20 mg and spironolactone 25 mg; kidney function remained stable on 10/25 and 10/26 Will hold on occasion in the setting of hypotension Trend BMP, magnesium #CHF/pleural effusion Baseline weight likely around 165lbs Last echocardiogram on 10/11/2024 revealed LVEF at 55 to 60%; moderate mitral regurg S/p thoracentesis 10/13 that was transudative. 2 days left of cefdinir course for "lung fluid". Gram stain negative. Daily weights, preferably standing Lasix/spironolactone (as above) Follows w/ cardiology #Episodes of hypothermia | episodes of hypotension Acute on chronic v. ? Infectious etiology; 34.5 C on 10/19 and 34.6 F on 10/23 Denise mayer called on the evening of 10/19 Random cortisol level 14 Bare hugger patient warming system PRN Completed course of hydrocortisone on 10/24 Additional dose of hydrocortisone 25 mg IV given the morning of 10/26 due to hypotension at 85/58 #Megaloblastic anemia Hgb trend 10.3 -> 10.2 -> 9.3 -> 8.9 -> 10.0 (stable) MCV >100 Vitamin B12 and folate WNL 06/2024 No signs of active bleeding, however patient exhibits significant bruising of e xtremities on exam Eliquis has been discontinued in the setting of recurrent falls/anemia/thrombocytopenia Close monitoring of patient's left hip hematoma; unchanged from prior Daily CBC #Hypothyroidism TSH elevated at 7.414 (improved from 10/10 @ 8.155) Continue Levothyroxine 75mcg Repeat TSH in 4-6 weeks outpatient #Right hip hematoma Noted on hip CT on 10/12; monitoring #Constipation Miralax increased to BID, monitor BM's #A fib In atrial fibrillation on arrival; rate control Eliquis has been discontinued (as above) Disposition: Guarded prognosis; continued stay on MSO due to liver workup / medical fragility DVT prophylaxis: Eliquis has been discontinued; teds Code: DNR/DNI Admission and Anticipated Discharge Date Admission Date: October 19, 2024 Supervising Physician Co-Signing Physician Notes Attending Attestation - Chart reviewed in detail, care plan d/w AMINA Gr. I agree w/ the crouch components of his documentation. Initiate diuretic therapy for decompensated cirrhosis. Serial labs. Await SPEP, UPEP, etc. Quinton Bates MD Subjective Mr. Encinas is in good spirits this morning. He reports that he slept well last night, and his gayle was shaved today. He did have another episode where he wet the bed, but from that point on he has been doing well. No pain reported. No fevers overnight. He reports his stomach feels good this morning, but he is still having some constipation. He has not been up moving around with PT today. However, he reports that he ate breakfast this morning and feels good. ROS: Patient does endorse generalized fatigue, difficulty walking, and constipation. Patient denies fever, chills, night sweats, chest pain, chest palpitations, SOB, stomach pain, stomach discomfort, N/V/D, or pain in the legs. Review of Systems Review of Systems: See HPI above Physical Exam Physical Exam: General: no acute distress; resting bed; pleasant affect; clean-shaven; non- toxic appearing; frail appearing; cooperative; SpO2 96% on RA HEENT: normocephalic, atraumatic; no scleral icterus; PERRLA; vision intact; hard of hearing Neck: supple; trachea midline Skin: Purple bruising noted on the right dorsal forearm and right bicep; also noted on the right lateral lower extremity; warm, dry without signs of tenting; no cyanosis CV: chest wall NTP; irregularly irregular rhythm; S1/S2 normal; no murmurs/rubs/gallops; pulses intact and symmetric at radial, DP, and PT Lungs: no acute respiratory distress; symmetrical chest wall expansion; clear breath sounds across all lung kendrick w/o adventitious sounds; no wheezing ABD: Soft, NTP in all 4 quadrants; BS present; no rebound/guarding; mild to moderate distention MSK: no tics or fasciculations; +3 pitting edema extending up to the thighs bilaterally, not erythematous but with significant bruising/hematoma on the right lower extremity; 3/5 strength bilaterally when lifting legs from bed supine Left hip: Hematoma noted on the left hip; bulging, spherical, approximately 3 cm diameter; ecchymosis and bruising; without erythema; NTP Neuro: A&Ox3; flat mood and affect; occasionally garbled speech, but coherent thought processes; negative clonus; patient reports sensation is intact and symmetric in the lower extremities bilaterally Results & Data Results & Data Vital Signs (Past 12 Hours) Vital Signs Temp Pulse Resp BP Pulse Ox O2 Del Method 10/26/24 11:24 104/71 10/26/24 08:03 99/65 L 10/26/24 07:49 36.3 C L 92 H 16 85/58 L 96 Room Air 10/26/24 07:48 36.3 C L 10/26/24 07:30 Room Air PG Care Time/CCT Total # of Minutes Spent Total Time Spent with Patient: Total time spent is greater than 50% in coordination of care (as documented) at patient's floor/unit and/or counseling patient: Coding [place] [address] SUB INP/OBS CARE 3/50MIN Patient Type Established Medical Decision Making High Complexity Diagnoses Ambulatory dysfunction R26.2 Ascites R18.8 Heart failure with improved ejection fraction (HFimpEF) I50.32 Chronic kidney disease, stage III (moderate) N18.30 Thrombocytopenia D69.6 Paroxysmal A-fib I48.0 Anemia D64.9
[2024-10-26] MEDS: INSULIN ASPART PER UNIT CHARGE SC SCH (12:20)
[2024-10-26] MEDS: SPIRONOLACTONE 25 MG TAB PO SCH (13:34)
[2024-10-26] MEDS: FUROSEMIDE 20 MG TAB PO SCH (13:35)
[2024-10-27 06:32] LABS: Hematocrit (blood only) 28.2 % (42.0-52.0); Hemoglobin 9.5 g/dl (14.0-18.0); Mean Corpuscular Hemoglobin 34.5 pg (25.0-34.0); Mean Corpuscular Hgb Conc 33.7 g/dL (32.0-36.0); Mean Corpuscular Volume 102.5 fL (80.0-100.0); Mean Platelet Volume 12.5 fL (9.4-12.4); Platelet Count 73 K/uL (130-400); RDW Coefficient of Variation 18.7 % (11.5-14.5); RDW Standard Deviation 69.1 fL (36.4-46.3); Red Blood Count 2.75 M/uL (4.70-6.10); White Blood Count 5.84 K/ul (4.8-10.8)
[2024-10-27 06:50] LABS: Albumin Globulin Ratio 2.1 (0.9-2); BUN Creatinine Ratio 38.5 (10-20); Bilirubin,Total 2.8 mg/dl (0.2-1.0); Calcium 8.7 mg/dl (8.6-10.3); Creatinine Clr Calc Pharmacy 29.4 ml/min; Globulin 1.8 gm/dl (2.5-4.0); Magnesium 2.4 mg/dl (1.7-2.4); Potassium 4.7 mmol/L (3.5-5.1); Total Protein 5.6 gm/dl (6.0-8.3)
--- NOTE | 2024-10-27 08:13 | Gastroenterology Progress Note ---
Date of Service October 27, 2024 Assessment & Plan (1) Cirrhosis: Plan: Clinically stable suspect diuresis is helping his ascites and lower extremity edema. No signs of decompensation. Continue present regimen. Any function stable. Once discharged can follow-up with our office as an outpatient. (2) Ascites: Admission and Anticipated Discharge Date Admission Date: October 19, 2024 Subjective Resting comfortably no complaints no distress Physical Exam Physical Exam: No acute distress Respiratory rate regular Cardiac rhythm regular Abdomen soft nontender Extremities less lower extremity edema Results & Data Results & Data Vital Signs (Past 12 Hours) Vital Signs Temp Pulse Resp BP Pulse Ox O2 Del Method 10/27/24 08:01 36.1 C L 100 H 18 114/80 97 Room Air 10/27/24 04:00 35.8 C L 92 H 16 93/67 L 95 Room Air 10/27/24 00:00 36.3 C L 104 H 22 104/72 98 Room Air Laboratory Results Laboratory Results - last 48 hr 10/19/24 10/24/24 10/25/24 22:27 13:30 06:33 WBC RBC Hgb Hct MCV MCH MCHC RDW Std Deviation RDW Coeff of Gilbert Plt Count MPV Sodium 139 Potassium 4.4 Chloride 104 Carbon Dioxide 27 Anion Gap 8 BUN 73 H Creatinine 2.11 H Est Cr Clr Drug Dosing 26.1 eGFR 29.37 BUN/Creatinine Ratio 34.6 H Glucose 228 H POC Glucose Calcium 9.3 Magnesium Total Bilirubin 2.8 H AST 46 H ALT 45 Alkaline Phosphatase 97 Total Protein 6.0 Albumin 4.3 Globulin 1.7 L Albumin/Globulin Ratio 2.5 H Whole Bld Vitamin B1 107 Miscellaneous Test Cancelled 10/25/24 10/25/24 10/25/24 11:32 11:32 11:33 WBC RBC Hgb Hct MCV MCH MCHC RDW Std Deviation RDW Coeff of Gilbert Plt Count MPV Sodium Potassium Chloride Carbon Dioxide Anion Gap BUN Creatinine Est Cr Clr Drug Dosing eGFR BUN/Creatinine Ratio Glucose POC Glucose 437 H* 334 H* 341 H* Calcium Magnesium Total Bilirubin AST ALT Alkaline Phosphatase Total Protein Albumin Globulin Albumin/Globulin Ratio Whole Bld Vitamin B1 Miscellaneous Test 10/25/24 10/25/24 10/25/24 14:46 16:44 20:53 WBC RBC Hgb Hct MCV MCH MCHC RDW Std Deviation RDW Coeff of Gilbert Plt Count MPV Sodium Potassium Chloride Carbon Dioxide Anion Gap BUN Creatinine Est Cr Clr Drug Dosing eGFR BUN/Creatinine Ratio Glucose POC Glucose 278 H 297 H 264 H Calcium Magnesium Total Bilirubin AST ALT Alkaline Phosphatase Total Protein Albumin Globulin Albumin/Globulin Ratio Whole [facility] Vitamin B1 Miscellaneous Test 10/26/24 10/26/24 10/26/24 07:57 11:05 11:06 WBC 6.16 RBC 2.94 L Hgb 10.1 L Hct 30.3 L MCV 103.1 H MCH 34.4 H MCHC 33.3 RDW Std Deviation 70.4 H RDW Coeff of Gilbert 18.9 H Plt Count 68 L MPV 12.8 H Sodium 139 Potassium 5.0 Chloride 104 Carbon Dioxide 27 Anion Gap 8 BUN 72 H Creatinine 1.93 H Est Cr Clr Drug Dosing 28.5 eGFR 32.68 BUN/Creatinine Ratio 37.3 H Glucose 282 H POC Glucose 154 H Calcium 9.2 Magnesium Total Bilirubin 3.3 H AST 38 ALT 40 Alkaline Phosphatase 97 Total Protein 6.1 Albumin 4.1 Globulin 2.0 L Albumin/Globulin Ratio 2.[address] [facility] Vitamin B1 Miscellaneous Test 10/26/24 10/26/24 10/26/24 11:53 11:58 13:21 WBC RBC Hgb Hct MCV MCH MCHC RDW Std Deviation RDW Coeff of Gilbert Plt Count MPV Sodium Potassium Chloride Carbon Dioxide Anion Gap BUN Creatinine Est Cr Clr Drug Dosing eGFR BUN/Creatinine Ratio Glucose POC Glucose 383 H* 335 H* 356 H* Calcium Magnesium Total Bilirubin AST ALT Alkaline Phosphatase Total Protein Albumin Globulin Albumin/Globulin Ratio Whole [facility] Vitamin B1 Miscellaneous Test 10/26/24 10/26/24 10/26/24 15:17 16:34 19:56 WBC RBC Hgb Hct MCV MCH MCHC RDW Std Deviation RDW Coeff of Gilbert Plt Count MPV Sodium Potassium Chloride Carbon Dioxide Anion Gap BUN Creatinine Est Cr Clr Drug Dosing eGFR BUN/Creatinine Ratio Glucose POC Glucose 283 H 230 H 208 H Calcium Magnesium Total Bilirubin AST ALT Alkaline Phosphatase Total Protein Albumin Globulin Albumin/Globulin Ratio Whole [facility] Vitamin B1 Miscellaneous Test 10/27/24 10/27/24 05:52 07:42 WBC 5.84 RBC 2.75 L Hgb 9.5 L Hct 28.2 L MCV 102.5 H MCH 34.5 H MCHC 33.7 RDW Std Deviation 69.1 H RDW Coeff of Gilbert 18.7 H Plt Count 73 L MPV 12.5 H Sodium 139 Potassium 4.7 Chloride 105 Carbon Dioxide 26 Anion Gap 8 BUN 72 H Creatinine 1.87 H Est Cr Clr Drug Dosing 29.4 eGFR 33.95 BUN/Creatinine Ratio 38.5 H Glucose 140 H POC Glucose 152 H Calcium 8.7 Magnesium 2.4 Total Bilirubin 2.8 H AST 41 H ALT 38 Alkaline Phosphatase 96 Total Protein 5.6 L Albumin 3.8 Globulin 1.8 L Albumin/Globulin Ratio 2.1 H Whole Bld Vitamin B1 Miscellaneous Test PG Care Time/CCT Total # of Minutes Spent Total Time Spent with Patient: Total time spent is greater than 50% in coordination of care (as documented) at patient's floor/unit and/or counseling patient: Coding Level of Care Code 34598 SUB INP/OBS CARE 2/35MIN Diagnoses Cirrhosis K74.60 Ascites R18.8
--- NOTE | 2024-10-27 15:40 | Hospitalist Progress Note ---
Date of Service October 27, 2024 Assessment & Plan (1) Ambulatory dysfunction: (2) Ascites: (3) Heart failure with improved ejection fraction (HFimpEF): (4) Chronic kidney disease, stage III (moderate): (5) Thrombocytopenia: (6) Paroxysmal A-fib: (7) Anemia: Plan This is an 89-year-old gentleman with past medical history of CHF, CKD, type 2 diabetes, dyslipidemia, A-fib, hypothyroidism who presented to the ED on 10/19/2024 with a chief complaint of ambulatory dysfunction. Recent hospitalization from 10/11 - 10/16 for weakness secondary to right-sided pleural effusion. Thoracentesis on 10/13 was transudative etiology. Rehab was recommended at that time, but patient declined and went home. BARBARA 15. # Ambulatory dysfunction Suspect multifactorial: Physical deconditioning from recurrent hospitalizations + new liver cirrhosis/large-volume Patient now agreeable to rehab Patient lives at home by himself, but his son (Osito) is currently visiting and helping with home management PT OT evaluations appreciated Originally, plan was for discharge to [facility] on Monday 10/23 However, given repeated episodes of hypothermia, hypotension, and new workup for liver cirrhosis/multiple myeloma, discharge has been delayed due to medical instability Did have a goals of care discussion with patient's son on 10/23 and 10/25 regarding invasive procedures/prognosis with heart failure, kidney disease, and newfound liver disease While patient's son/medical POA was appreciative of conversation, he reports he does not want to pursue palliative discussions at this time #New Liver Cirrhosis | Ascites | thrombocytopenia No history of heavy alcohol use MELD 3.0: 22 LUCILA-C ACLF: 52 CTAP from 10/10/2024 with cirrhosis and ascites findings Personally reviewed A/P CTs from July, June, May 2024 No prior mention of liver cirrhosis Mention of small/incidental ascites Reach out to our radiology team to have the CT A/P reread; reconfirmed that this is new liver cirrhosis (only subtlety imaged on prior imaging) Elevated INR + thrombocytopenia Hepatitis panel negative on 10/15 Paracentesis performed on 10/24; 2 L removed Peritoneal fluids red/cloudy in appearance (? Traumatic tap); BP stable postop No WBCs to suggest SBP; culture pending Patient reports no abdominal pain on the morning of 10/25 following his procedure; abdominal discomfort has improved SAAG score >1.1g/dL; suggestive of portal hypertension Ammonia level WNL Initiate lactulose 30 g daily GI consult appreciated for new onset of liver cirrhosis Suspected etiology is metabolic in nature; ? uncontrolled diabetes Initially, the etiology of patient's new liver cirrhosis was unclear/abrupt. Per discussion with Dr. Bates, it is possible that patient is presenting with a multiple myeloma picture. Pancytopenic. Vague history of CLL (both patient and patient's son are unclear on details). Additional lab tests such as SPEP, UPEP, and peripheral blood smear ordered. #Diabetes | hyperglycemia Diet controlled at home Last A1c 6.1% on 09/03/2024 Loose SSI with target BSG range 110- 180 BSG ACHS Adjust regimen as needed #CKD stage IIIb | Hypermagnesemia | LE edema Baseline creatinine 1.9-2.2 Creatinine trend 2.18 -> 2.50 -> 2.11 -> 1.93 -> 1.87 (improving) Magnesium remains mildly elevated DC'd Bumex Patient is currently tolerating Lasix 20 and spironolactone 25 daily Increase to Lasix 40 mg daily on 10/28 Increased to spironolactone 50 mg daily on 10/29 Trend BMP, magnesium #CHF/pleural effusion Baseline weight likely around 165lbs Last echocardiogram on 10/11/2024 revealed LVEF at 55 to 60%; moderate mitral regurg S/p thoracentesis 10/13 that was transudative. 2 days left of cefdinir course for "lung fluid". Gram stain negative. Daily weights, preferably standing Lasix/spironolactone (as above) Follows w/ cardiology #Episodes of hypothermia | episodes of hypotension Acute on chronic; 34.5 C on 10/19 and 34.6 F on 10/23 Code purple called on the evening of 10/19 Random cortisol level 14 Bare hugger patient warming system PRN Completed course of hydrocortisone on 10/24 Additional dose of hydrocortisone 25 mg IV given PRN #Megaloblastic anemia Vitamin B12 and folate WNL 06/2024 No signs of active bleeding, however patient exhibits significant bruising of extremities on exam Eliquis has been discontinued in the setting of recurrent falls/anemia/thrombocytopenia Daily CBC #Hypothyroidism TSH elevated at 7.414 (improved from 10/10 @ 8.155) Continue Levothyroxine 75mcg Repeat TSH in 4-6 weeks outpatient #Left hip hematoma Noted on hip CT on 10/12; monitoring; unchanged from prior #Constipation Miralax increased to BID, monitor BM's #A fib In atrial fibrillation on arrival; rate control Eliquis has been discontinued (as above) Disposition: Guarded prognosis; continued stay on MSO due to medical fragility Would recommend reapplying for authorization to [facility] on Saturday 10/28 or Sunday 10/29 if patient is tolerating diuretics without significant change in kidney function DVT prophylaxis: Eliquis has been discontinued; teds Code: DNR/DNI Admission and Anticipated Discharge Date Admission Date: October 19, 2024 Supervising Physician Co-Signing Physician Notes Attending Attestation - Chart reviewed in detail, care plan d/w AMINA Gr. I agree w/ the crouch components of his documentation. Appreciate GI support/recs. Quinton Bates MD Review of Systems Review of Systems: See HPI above Physical Exam Physical Exam: General: no acute distress; increased energy on 10/27; resting bed; pleasant affect; clean-shaven; non-toxic appearing; frail appearing; cooperative; SpO2 96% on RA HEENT: normocephalic, atraumatic; no scleral icterus; PERRLA; vision intact; hard of hearing Neck: supple; trachea midline Skin: Purple bruising noted on the right dorsal forearm and right bicep; also noted on the right lateral lower extremity; warm, dry without signs of tenting; no cyanosis CV: chest wall NTP; irregularly irregular rhythm; S1/S2 normal; no murmurs/rubs/gallops; pulses intact and symmetric at radial, DP, and PT Lungs: no acute respiratory distress; symmetrical chest wall expansion; clear breath sounds across all lung kendrick w/o adventitious sounds; no wheezing ABD: Soft, NTP in all 4 quadrants; BS present; no rebound/guarding; mild to moderate distention MSK: no tics or fasciculations; +3 pitting edema extending up to the thighs bilaterally, not erythematous but with significant bruising/hematoma on the right lower extremity; 3/5 strength bilaterally when lifting legs from bed supine Left hip: Hematoma noted on the left hip; bulging, spherical, approximately 3 cm diameter; ecchymosis and bruising; without erythema; NTP Neuro: A&Ox3; normal mood and affect; garbled speech (improving from prior days); patient reports sensation is intact and symmetric in the lower extremities bilaterally Results & Data Results & Data Vital Signs (Past 12 Hours) Vital Signs Temp Pulse Resp BP Pulse Ox O2 Del Method 10/27/24 15:15 36.7 C 102 H 20 109/68 96 Room Air 10/27/24 12:52 36.3 C L 90 16 100/65 99 Room Air 10/27/24 08:01 36.1 C L 100 H 18 114/80 97 Room Air 10/27/24 07:25 Room Air 10/27/24 04:00 35.8 C L 92 H 16 93/67 L 95 Room Air PG Care Time/CCT Total # of Minutes Spent Total Time Spent with Patient: Total time spent is greater than 50% in coordination of care (as documented) at patient's floor/unit and/or counseling patient: C[place] [address] SUB INP/OBS CARE 3/50MIN Patient Type Established Medical Decision Making High Complexity Diagnoses Ambulatory dysfunction R26.2 Ascites R18.8 Heart failure with improved ejection fraction (HFimpEF) I50.32 Chronic kidney disease, stage III (moderate) N18.30 Thrombocytopenia D69.6 Paroxysmal A-fib I48.0 Anemia D64.9
[2024-10-28 07:50] LABS: Hematocrit (blood only) 30.7 % (42.0-52.0); Hemoglobin 10.3 g/dl (14.0-18.0); Mean Corpuscular Hemoglobin 34.7 pg (25.0-34.0); Mean Corpuscular Hgb Conc 33.6 g/dL (32.0-36.0); Mean Corpuscular Volume 103.4 fL (80.0-100.0); Mean Platelet Volume 11.4 fL (9.4-12.4); Platelet Count 88 K/uL (130-400); RDW Coefficient of Variation 18.9 % (11.5-14.5); RDW Standard Deviation 71.6 fL (36.4-46.3); Red Blood Count 2.97 M/uL (4.70-6.10); White Blood Count 5.54 K/ul (4.8-10.8)
[2024-10-28 08:09] LABS: Albumin Globulin Ratio 1.9 (0.9-2); BUN Creatinine Ratio 34.9 (10-20); Bilirubin,Total 3.2 mg/dl (0.2-1.0); Calcium 8.8 mg/dl (8.6-10.3); Creatinine Clr Calc Pharmacy 29.1 ml/min; Magnesium 2.3 mg/dl (1.7-2.4); Total Protein 5.8 gm/dl (6.0-8.3)
[2024-10-28] MEDS: FUROSEMIDE 40 MG TAB PO SCH (08:35)
--- NOTE | 2024-10-28 08:47 | Hospitalist Progress Note ---
Date of Service October 28, 2024 Assessment & Plan (1) Ambulatory dysfunction: (2) Ascites: (3) Heart failure with improved ejection fraction (HFimpEF): (4) Chronic kidney disease, stage III (moderate): (5) Thrombocytopenia: (6) Paroxysmal A-fib: (7) Anemia: Plan 89yo male with PMHx significant for CHF, CKD, afib, hypothyroidism presented to ER for ambulatory dysfunction with recent hospitalization from 10/11-10/16 for weakness 2nd to R sided pleural effusion with thoracentesis 10/13 which was transudative and rehab recommended at that time but patient declined and went home. LACE score 15, high readmission risk # Ambulatory dysfunction -suspect multifactorial with recent hospitalizations and new cirrhosis/large volume paracentesis performed on 10/24 for 2L and diuretic adjustments as outlined with improvement in edema/swelling Patient lives alone by himself but son Osito visiting and helping with home management PT/OT evals rec rehab and [facility] arranged but developed hypotension/hypothermia and work-up for liver cirrhosis/myeloma and delayed due to medical instability. Prior goals of care discussion with HF, renal disease and newfound liver disease however patient and son not wanting pursue palliaitve at this time Adjustment to diuretics as below and will have CM apply for auth for potential rehab next 24-48 hours #New Liver Cirrhosis, Ascites, Thrombocytopenia -no hx etoh use, MELD score 22, elevated INR w/ thrombocytopenia. Hepatitis panel negative. Ammonia wnl CTAP noting cirrhosis with ascites, noted subtle on radiology review prior imaging Did undergo paracentesis 2L on 10/24, blood noted, ?traumatic tap. -No WBC to suggest SBP and cultures have been negative. -SAAG score >1.1g/dL suggestive of portal hypertension GI consulted- appreciate recs/assistance and will need GI f/u Bumex discontinued and placed on lasix/spironolactone for volume management/ascites/cirrhosis management Lasix INCREASED to 40mg daily 10/28 with plans for spironolactone increase to 50mg for 10/29 Lactulose started daily (again, ammonia wnl) Will need GI f/u ?start rifaximin Monitor LFT/INR/CBC in AM Initially, the etiology of patient's new liver cirrhosis was unclear/abrupt. Per discussion with Dr. Bates, it is possible that patient is presenting with a multiple myeloma picture. Pancytopenic. Vague history of CLL (both patient and patient's son are unclear on details). Additional lab tests such as SPEP, UPEP, and peripheral blood smear ordered. -Peripheral smear noting red cells do show some atypical morphology and a component of myelodysplasia cannot be excluded by smear review. #Diabetes | hyperglycemia - A1c 6.1, diet controlled BSG AC/HS with SSI while inpatient and has been acceptable #CKD stage IIIb Baseline Cr 1.9-2.2 with bump to 2.5 Bumex STOPPED, lasix/spironolactone started as above and Cr stable 1.89 and will continue to monitor with adjustment to lasix/spironolactone Renal dose meds/avoid nephrotoxins BMP in AM #CHF/pleural effusion-Baseline weight likely around 165lbs. Last echocardiogram on 10/11/2024 revealed LVEF at 55 to 60%; moderate mitral regurg S/p thoracentesis 10/13 that was transudative. Completing/completed 2 days left of cefdinir course for "lung fluid". Gram stain negative. Daily weights, preferably standing Lasix/spironolactone (as above) with INCREASE lasix to 40mg today, aldatone to 50mg in AM Follows w/ cardiology and will need new rx at dc Does have hx afib -- see prior note 10/21 that eliquis was discontinued w/ repeat falls Ensure mag/K replete, monitor to resume while inpatient #Episodes of hypothermia | episodes of hypotension Acute on chronic; 34.5 C on 10/19 and 34.6 F on 10/23. Code purple called on the evening of 10/19. Random cortisol level 14 Bare hugger patient warming system PRN Completed course of hydrocortisone on 10/24 Additional dose of hydrocortisone 25 mg IV given PRN #Megaloblastic anemia Vitamin B12 and folate WNL 06/2024 No signs of active bleeding, however patient exhibits significant bruising of extremities on exam Eliquis has been discontinued in the setting of recurrent falls/anemia/thrombocytopenia Daily CBC #Hypothyroidism TSH elevated at 7.414 (improved from 10/10 @ 8.155) Continue Levothyroxine 75mcg Repeat TSH in 4-6 weeks outpatient #Left hip hematoma Noted on hip CT on 10/12; monitoring; unchanged from prior #A fib In atrial fibrillation on arrival; rate control Eliquis has been discontinued prior and remains in afib but rates controlled monitor to add nadolol/coreg vs other for HR control w/ cirrhosis given potential for varices w/ portal HTN noted on ascites analysis -- consider adding AM 6/10 pending BPs w/ diuretic adjustment to prevent worsening hypotension but do suspect would benefit for such w/ coreg if tolerates for HF/cirrhosis DVT proph: siddharth hoshiram continued, prior eliquis discontinued (improvement in edema w/ diuretics/pulses present but high risk and should monitor) Disposition: Guarded prognosis; can notify CM to apply for auth for [facility] pending course next 24 hours w/ adjustment to diuretics Admission and Anticipated Discharge Date Admission Date: October 19, 2024 Supervising Physician Co-Signing Physician Notes Attending Attestation - Chart reviewed in detail, care plan d/w AMINA Parish. I agree w/ the crouch components of her documentation. Cont gradual increase in lasix/aldactone for his decompensated cirrhosis. Quinton Bates MD Subjective Eval this morning, alone in room. Resting comfortable, reports feeling alright, decent appetite. Moving his bowels. Discussed adjustment to diuretics. Compression stockings in place, denies abdominal pain or CP/SOB at this time. Does have slight jaundiced appearance on exam. Reports does have difficulty getting around and is aware potential rehab. Questions/concerns addressed at this time. Per nursing, patient just had LARGE BM, swelling in legs better today and remains heavy 2 assist to bedside commode. CM to follow. Physical Exam 2 Physical Exam: General: 89yo male sitting up in bed, jaundiced appearance to skin but eyes anicteric, fatigued appearing/weak but reports feeling better HEENT: head atraumatic, normocephalic, mm slightly dry but trachea midline, HARD OF HEARING Resp: diminished in the bases but no wheezing/rales, on room air CV: irregularly irregular, rates 80-90s, +systolic murmur, improvement in b/l edema per nursing, pulses present GI: +BS, +ascites, no overt tenderness/guarding MSK/Neuro: moves all extremities but slow/generalized weakness but nonfocal 3/5 strength bilaterally when lifting legs from bed supine Left hip: Hematoma noted on the left hip; bulging, spherical, approximately 3 cm diameter; ecchymosis and bruising; without erythema; NTP Psych: alert/oriented, cooperative with exam Skin: scattered bruising to R bicep/R dorsal forearm and shins Results & Data Results & Data Vital Signs (Past 12 Hours) Vital Signs Temp Pulse Resp BP Pulse Ox O2 Del Method 10/28/24 08:34 108/76 10/28/24 08:05 36.5 C 96 H 16 94/62 L 98 Room Air 10/28/24 07:30 Room Air Laboratory Results 10/28/24 07:22 10/28/24 07:22 PG Care Time/CCT Total # of Minutes Spent Total Time Spent with Patient: Total time spent is greater than 50% in coordination of care (as documented) at patient's floor/unit and/or counseling patient: Coding Level of Care Code 21314 SUB INP/OBS CARE 3/50MIN Diagnoses Ambulatory dysfunction R26.2 Ascites R18.8 Heart failure with improved ejection fraction (HFimpEF) I50.32 Chronic kidney disease, stage III (moderate) N18.30 Thrombocytopenia D69.6 Paroxysmal A-fib I48.0 Anemia D64.9
[2024-10-29 07:12] LABS: Creatinine Ur 60 mg/dL (20-320); Protein, Urine Random 65 mg/dL (5-25); Ur Albumin % 65 %; Ur Alpha-1-globulin % 4 %; Ur Alpha-2-globulin % 8 %; Ur Beta Globulin % 10 %; Ur Gamma Globulin % 14 %; Ur Protein/Creat Ratio mg/g 1083 mg/g creat (25-148); Urine Abnormal Protein Band 1 DNR mg/dL (NONE DETECTED); Urine Abnormal Protein Band 2 DNR mg/dL (NONE DETECTED); Urine Protein/Creatinine Ratio 1.083 (0.025-0.148)
[2024-10-29] MEDS: SPIRONOLACTONE 25 MG TAB PO SCH (09:07)
[2024-10-29 09:46] LABS: Hematocrit (blood only) 32.6 % (42.0-52.0); Hemoglobin 11.1 g/dl (14.0-18.0); Mean Corpuscular Hemoglobin 34.8 pg (25.0-34.0); Mean Corpuscular Volume 102.2 fL (80.0-100.0); Platelet Count 96 K/uL (130-400); RDW Coefficient of Variation 18.6 % (11.5-14.5); RDW Standard Deviation 68.8 fL (36.4-46.3); Red Blood Count 3.19 M/uL (4.70-6.10); White Blood Count 5.79 K/ul (4.8-10.8)
[2024-10-29 10:02] LABS: Albumin Globulin Ratio 1.7 (0.9-2); BUN Creatinine Ratio 31.6 (10-20); Bilirubin,Total 3.2 mg/dl (0.2-1.0); Calcium 9.2 mg/dl (8.6-10.3); Creatinine Clr Calc Pharmacy 28.5 ml/min; Globulin 2.2 gm/dl (2.5-4.0)
[2024-10-29 10:23] LABS: INR 1.1 (0.9-1.1); Prothrombin Time 12.1 Seconds (9.0-12.0)
--- NOTE | 2024-10-29 12:12 | Hospitalist Progress Note ---
Date of Service October 29, 2024 Assessment & Plan (1) Ambulatory dysfunction: (2) Ascites: (3) Heart failure with improved ejection fraction (HFimpEF): (4) Chronic kidney disease, stage III (moderate): (5) Thrombocytopenia: (6) Paroxysmal A-fib: (7) Anemia: Plan 89yo male with PMHx significant for CHF, CKD, afib, hypothyroidism presented to ER for ambulatory dysfunction with recent hospitalization from 10/11-10/16 for weakness 2nd to R sided pleural effusion with thoracentesis 10/13 which was transudative and rehab recommended at that time but patient declined and went home. LACE score 15, high readmission risk # Ambulatory dysfunction -suspect multifactorial with recent hospitalizations and new cirrhosis/large volume paracentesis performed on 10/24 for 2L and diuretic adjustments as outlined with improvement in edema/swelling Patient lives alone by himself but son Osito visiting and helping with home management PT/OT [facility] and [facility] arranged but developed hypotension/hypothermia and work-up for liver cirrhosis/myeloma and delayed due to medical instability. Prior goals of care discussion with HF, renal disease and newfound liver disease however patient and son not wanting pursue palliaitve at this time Plan for rehab #New Liver Cirrhosis, Ascites, Thrombocytopenia -Etiology os uncertain -no hx etoh use, Hepatitis panel negative. Ammonia wnl GI consulted- appreciate recs/assistance and will need GI f/u Bumex discontinued and placed on lasix/spironolactone for volume management/ascites/cirrhosis management Lasix INCREASED to 40mg daily 10/28 with plans for spironolactone increase to 50mg for 10/29 Lactulose started daily (again, ammonia wnl) Will need GI f/u #Diabetes | hyperglycemia - A1c 6.1, diet controlled BSG AC/HS with SSI while inpatient and has been acceptable #CKD stage IIIb Baseline Cr 1.9-2.2 with bump to 2.5 Bumex STOPPED, lasix/spironolactone started as above and Cr stable 1.89 and will continue to monitor with adjustment to lasix/spironolactone Renal dose meds/avoid nephrotoxins BMP in AM #CHF/pleural effusion -Last echocardiogram on 10/11/2024 revealed LVEF at 55 to 60%; moderate mitral regurg S/p thoracentesis 5/25 that was transudative. completed 2 days left of cefdinir course for "lung fluid". Gram stain negative. Daily weights, preferably standing Lasix/spironolactone (as above) with INCREASE lasix to 40mg today, aldatone to 50mg in AM Follows w/ cardiology and will need new rx at dc Does have hx afib -- see prior note 10/21 that eliquis was discontinued w/ repeat falls #Episodes of hypothermia | episodes of hypotension Acute on chronic; 34.5 C on 10/19 and 34.6 F on 10/23. Code purple called on the evening of 10/19. Random cortisol level 14 Bare hugger patient warming system PRN Completed course of hydrocortisone on 10/24 Additional dose of hydrocortisone 25 mg IV given PRN #Megaloblastic anemia Vitamin B12 and folate WNL 06/2024 No signs of active bleeding, however patient exhibits significant bruising of extremities on exam Eliquis has been discontinued in the setting of recurrent falls/anemia/t hrombocytopenia Daily CBC #Hypothyroidism TSH elevated at 7.414 (improved from 10/10 @ 8.155) Continue Levothyroxine 75mcg Repeat TSH in 4-6 weeks outpatient #Left hip hematoma Noted on hip CT on 10/12; monitoring; unchanged from prior #A fib In atrial fibrillation on arrival; rate control Eliquis has been discontinued prior and remains in afib but rates controlled DVT proph: siddharth hose continued, prior eliquis discontinued (improvement in edema w/ diuretics/pulses present but high risk and should monitor) Disposition: for rehab Admission and Anticipated Discharge Date Admission Date: October 19, 2024 Subjective patient seen and examined,still weak, in a anish hugger for hypothermiaa Review of Systems Review of Systems: All systems reviewed are negative, apart from the ones contained in the history. Physical Exam Physical Exam: The patient is awake, alert and oriented 3, frail HEENT--PERRL, EOMI, mucous membranes and oropharynx mildly dry, jaundice ++ Neck--supple. No JVD. No bruits. Thyroid normal, trachea midline, no adenopathy. Heart--normal S1 and S2. No murmurs, rubs or gallops. Lungs--clear bilaterally, no respiratory distress, no accessory muscle use. Abdomen--normal bowel sounds and soft. Extremities--no cyanosis or clubbing. No edema. Dermatologic--normal skin turgor, normal color, no abnormal lymph nodes, no rash. Neurologic--cranial nerves II through XII grossly intact. Rheumatologic--normal range of motion. Psychiatric--normal affect. Results & Data Results & Data Vital Signs (Past 12 Hours) Vital Signs Temp Pulse Resp BP Pulse Ox O2 Del Method 10/29/24 11:59 96.1 F L 10/29/24 11:04 Room Air 10/29/24 10:51 95.4 F L 10/29/24 09:46 94.8 F L 10/29/24 09:19 95.9 F L 10/29/24 07:28 98 H 16 95/62 L 96 Room Air PG Care Time/CCT Total # of Minutes Spent Total Time Spent with Patient: Total time spent is greater than 50% in coordination of care (as documented) at patient's floor/unit and/or counseling patient: Coding Level of Care Code 36932 SUB INP/OBS CARE 2/35MIN Diagnoses Ambulatory dysfunction R26.2 Ascites R18.8 Heart failure with improved ejection fraction (HFimpEF) I50.32 Chronic kidney disease, stage III (moderate) N18.30 Thrombocytopenia D69.6 Paroxysmal A-fib I48.0 Anemia D64.9 Time Spent (min) 35
[2024-10-29 13:10] LABS: Albumin 4.2 g/dL (3.8-4.8); Alpha 1 Globulin 0.2 g/dL (0.2-0.3); Alpha 2 Globulin 0.4 g/dL (0.5-0.9); Beta-1-Globulin 0.3 g/dL (0.4-0.6); Beta-2-Globulin 0.3 g/dL (0.2-0.5); Gamma Globulin 0.6 g/dL (0.8-1.7); Monoclonal Protein Band 1 DNR g/dL (NONE DETECTED); Monoclonal Protein Band 2 DNR g/dL (NONE DETECTED); Monoclonal Protein Band 3 DNR g/dL (NONE DETECTED); Total Protein 6.1 g/dL (6.1-8.1)
[2024-10-29] MEDS: rifAXIMin 550 MG TABLET PO SCH (21:15)
--- NOTE | 2024-10-30 10:49 | Hospitalist Progress Note ---
Date of Service October 30, 2024 Assessment & Plan (1) Ambulatory dysfunction: (2) Ascites: (3) Heart failure with improved ejection fraction (HFimpEF): (4) Chronic kidney disease, stage III (moderate): (5) Thrombocytopenia: (6) Paroxysmal A-fib: (7) Anemia: Plan 89yo male with PMHx significant for CHF, CKD, afib, hypothyroidism presented to ER for ambulatory dysfunction with recent hospitalization from 10/11-10/16 for weakness 2nd to R sided pleural effusion with thoracentesis 10/13 which was transudative and rehab recommended at that time but patient declined and went home. LACE score 15, high readmission risk # Ambulatory dysfunction -suspect multifactorial with recent hospitalizations and new cirrhosis/large volume paracentesis performed on 10/24 for 2L and diuretic adjustments as outlined with improvement in edema/swelling Patient lives alone by himself but son Osito visiting and helping with home management PT/OT [facility] and [facility] arranged but developed hypotension/hypothermia and work-up for liver cirrhosis/myeloma and delayed due to medical instability. Prior goals of care discussion with HF, renal disease and newfound liver disease however patient and son not wanting pursue palliaitve at this time Plan for rehab #New Liver Cirrhosis, Ascites, Thrombocytopenia -Etiology os uncertain -no hx etoh use, Hepatitis panel negative. Ammonia wnl GI consulted- appreciate recs/assistance and will need GI f/u Bumex discontinued and placed on lasix/spironolactone for volume management/ascites/cirrhosis management Lasix INCREASED to 40mg daily 10/28 with plans for spironolactone increase to 50mg for 10/29 Lactulose started daily (again, ammonia wnl) Will need GI f/u #Diabetes | hyperglycemia - A1c 6.1, diet controlled BSG AC/HS with SSI while inpatient and has been acceptable #CKD stage IIIb Baseline Cr 1.9-2.2 with bump to 2.5 Bumex STOPPED, lasix/spironolactone started as above and Cr stable 1.89 and will continue to monitor with adjustment to lasix/spironolactone Renal dose meds/avoid nephrotoxins BMP in AM #CHF/pleural effusion -Last echocardiogram on 10/11/2024 revealed LVEF at 55 to 60%; moderate mitral regurg S/p thoracentesis 5/25 that was transudative. completed 2 days left of cefdinir course for "lung fluid". Gram stain negative. Daily weights, preferably standing Lasix/spironolactone (as above) with INCREASE lasix to 40mg today, aldatone to 50mg in AM Follows w/ cardiology and will need new rx at dc Does have hx afib -- see prior note 10/21 that eliquis was discontinued w/ repeat falls #Episodes of hypothermia | episodes of hypotension temp today 95.9F last T3 was low, will increase his levothyroxine to 100mcg from 75 daily Completed course of hydrocortisone on 10/24 Additional dose of hydrocortisone 25 mg IV given PRN #Megaloblastic anemia Vitamin B12 and folate WNL 06/2024 No signs of active bleeding, however patient exhibits significant bruising of extremities on exam Eliquis has been discontinued in the setting of recurrent falls/anemia/thrombocytopenia Daily CBC #Hypothyroidism TSH elevated at 7.414 (improved from 10/10 @ 8.155) last T3 was low, will increase his levothyroxine to 100mcg from 75 daily Repeat TSH in 4-6 weeks outpatient #Left hip hematoma Noted on hip CT on 10/12; monitoring; unchanged from prior #A fib In atrial fibrillation on arrival; rate control Eliquis has been discontinued prior and remains in afib but rates controlled DVT proph: siddharth hose continued, prior eliquis discontinued (improvement in edema w/ diuretics/pulses present but high risk and should monitor) Disposition: for rehab Admission and Anticipated Discharge Date Admission Date: October 19, 2024 Subjective patient seen and examined, no new complaints Review of Systems Review of Systems: All systems reviewed are negative, apart from the ones contained in the history. Physical Exam Physical Exam: The patient is awake, alert and oriented 3, frail HEENT--PERRL, EOMI, mucous membranes and oropharynx mildly dry, jaundice ++ Neck--supple. No JVD. No bruits. Thyroid normal, trachea midline, no ad enopathy. Heart--normal S1 and S2. No murmurs, rubs or gallops. Lungs--clear bilaterally, no respiratory distress, no accessory muscle use. Abdomen--normal bowel sounds and soft. Extremities--no cyanosis or clubbing. No edema. Dermatologic--normal skin turgor, normal color, no abnormal lymph nodes, no rash. Neurologic--cranial nerves II through XII grossly intact. Rheumatologic--normal range of motion. Psychiatric--normal affect. Results & Data Results & Data Vital Signs (Past 12 Hours) Vital Signs Temp Pulse Resp BP Pulse Ox O2 Del Method 10/30/24 10:06 Room Air 10/30/24 07:20 95.9 F L 93 H 16 108/71 97 Room Air PG Care Time/CCT Total # of Minutes Spent Total Time Spent with Patient: Total time spent is greater than 50% in coordination of care (as documented) at patient's floor/unit and/or counseling patient: Coding Level of Care Code 92092 SUB INP/OBS CARE 2/35MIN Diagnoses Ambulatory dysfunction R26.2 Ascites R18.8 Heart failure with improved ejection fraction (HFimpEF) I50.32 Chronic kidney disease, stage III (moderate) N18.30 Thrombocytopenia D69.6 Paroxysmal A-fib I48.0 Anemia D64.9 Time Spent (min) 35
[2024-10-30] MEDS ORDERED: LACTULOSE SYRUP 20 GM/30 ML UDC PO SCH (21:00)
[2024-10-30] MEDS: LACTULOSE SYRUP 10 GM/15 ML BTL 960 ML PO SCH (21:04)
[2024-10-31] MEDS: LEVOTHYROXINE SODIUM 100 MCG TABLET PO SCH (05:55)
[2024-10-31 07:35] LABS: Albumin Globulin Ratio 1.9 (0.9-2); BUN Creatinine Ratio 31.2 (10-20); Bilirubin,Total 2.6 mg/dl (0.2-1.0); Calcium 8.7 mg/dl (8.6-10.3); Creatinine Clr Calc Pharmacy 26.8 ml/min; Globulin 1.9 gm/dl (2.5-4.0); Potassium 5.1 mmol/L (3.5-5.1); Total Protein 5.6 gm/dl (6.0-8.3)
[2024-10-31] MEDS: FUROSEMIDE 40 MG TAB PO ONE (10:50)
--- NOTE | 2024-10-31 17:18 | Hospitalist Progress Note ---
"Date of Service October 31, 2024 Assessment & Plan (1) Cirrhosis: (2) Ascites: (3) Heart failure with improved ejection fraction (HFimpEF): (4) Chronic kidney disease, stage III (moderate): (5) Paroxysmal A-fib: (6) CLL (chronic lymphocytic leukemia): Plan 89yo male with PMHx significant for CHF, CKD, afib, hypothyroidism presented to ER for ambulatory dysfunction with recent hospitalization from 10/11-10/16 for R sided pleural effusion with thoracentesis 10/13 (transudative) and generalized weakness. Rehab recommended at that time but he decided to go home. Found to have newly decompensated cirrhosis with ascites. Overall prognosis poor because of advanced age, declining functional status, decompensated cirrhosis, HFpEF, CKD 3-4. At this time planning trial of rehab, follow up with gastroenterology for cirrhosis # Decompensated cirrhosis with portal hypertension, ascites, hepatic hydrothorax. 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 No alcohol history, hepatitis panel negative. -remains volume overloaded and weight increased. increase furosemide to 80 mg po daily. keep spironolactone at same dose mildly hyperkalemic no room for increase -Cr currently 2 which is within top of his baseline range -continue lactulose and rifaximin - ammonia 63 and unclear whether HE but mental status is better than when I saw him previously -CBC in am, CMP and INR for MELD -paracentesis/thoracentesis as needed - would give albumin with these because of advanced renal disease -GI consulted this admission, follow up in clinic #Diabetes | hyperglycemia - A1c 6.1, diet controlled -BSG AC/HS with SSI while inpatient and has been acceptable - reviewed BG 10/31 #CKD stage IIIb-IV -Baseline Cr 1.9-2.2 with bump to 2.5 earlier in admission -Renal dose meds/avoid nephrotoxins -BMP in AM #HFpEF, severe TR, right heart failure | Afib/flutter -Last echocardiogram on 10/11/2024 revealed LVEF at 55 to 60%; moderate mitral regurg -S/p thoracentesis 10/13 that was transudative. 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 -Completed course of cefdinir. -Diuretics as above -Not anticoagulated because of recurrent falls, cirrhosis, thrombocytopenia - risk>benefit. Not currently on B-na, has had hypotension -Follow up with cardiology #Episodes of hypothermia | episodes of hypotension -Reviewed previous temperatures and he's been consistently hypothermic. This is probably related to his advanced age and chronic multiorgan failure (cirrhosis, renal failure, heart failure) -levothyroxine increased -Completed course of hydrocortisone on 10/24. 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 potentially MDS -unremarkable SPEP - hypogammaglobulinemia, UPEP - glomerular proteinuria #Hypothyroidism TSH elevated at 7.414 (improved from 10/10 @ 8.155) last T3 was low, will increase his levothyroxine to 100mcg from 75 daily Repeat TSH in 4-6 weeks outpatient #Left hip hematoma Noted on hip CT on 10/12; stable DVT proph: SCD Disposition: for rehab soon, medically ready - discussed with LAURENT PRADO extensive review of past chart notes from this admission and previous admissions today Admission and Anticipated Discharge Date Admission Date: October 19, 2024 Subjective Sitting up in chair eating and looks pretty good Abdomen is distended with ascites but not painful, no nausea Asks appropriate questions Physical Exam 2 Physical Exam: Last 24h vitals reviewed GEN: no acute distress, sitting up in chair HEENT: pupils equal, sclerae icteric, moist MM RESP: normal WOB, CTAB CV: reg no mrg ABD: soft, distended with moderate to large nontense ascites, +BT SKIN: warm and dry, no generalized rashes EXT: LE wwp bilateral LE edema NEURO: AOx person, place, and situation. Face symmetric, speech normal, moves 4 ext spontaneously and equally Results & Data Results & Data Vital Signs (Past 12 Hours) Vital Signs Temp Pulse Resp BP Pulse Ox O2 Del Method 10/31/24 14:48 103 H 16 104/68 100 Room Air 10/31/24 08:30 34.8 C L 10/31/24 07:38 87 16 104/72 94 Room Air 10/31/24 07:28 34.8 C L 10/31/24 07:28 34.8 C L 10/31/24 07:20 Room Air Laboratory Results 10/29/24 08:54 10/31/24 06:44 Bili 2.6 Albumin 3.7 PG Care Time/CCT Total # of Minutes Spent Total Time Spent with Patient: Total time spent is greater than 50% in coordination of care (as documented) at patient's floor/unit and/or counseling patient: Coding Level of Care Code 75480 SUB INP/OBS CARE 2/35MIN Diagnoses Cirrhosis K74.60 Ascites R18.8 Heart failure with improved ejection fraction (HFimpEF) I50.32 Chronic kidney disease, stage III (moderate) N18.30 Paroxysmal A-fib I48.0 CLL (chronic lymphocytic leukemia) C91.10"
[2024-11-01 07:06] LABS: Hematocrit (blood only) 29.6 % (42.0-52.0); Hemoglobin 10.1 g/dl (14.0-18.0); Mean Corpuscular Hemoglobin 34.6 pg (25.0-34.0); Mean Corpuscular Hgb Conc 34.1 g/dL (32.0-36.0); Mean Corpuscular Volume 101.4 fL (80.0-100.0); Mean Platelet Volume 11.2 fL (9.4-12.4); Platelet Count 74 K/uL (130-400); RDW Coefficient of Variation 18.6 % (11.5-14.5); Red Blood Count 2.92 M/uL (4.70-6.10); White Blood Count 4.94 K/ul (4.8-10.8)
[2024-11-01 07:31] LABS: Albumin Globulin Ratio 1.8 (0.9-2); BUN Creatinine Ratio 29.5 (10-20); Bilirubin,Total 2.9 mg/dl (0.2-1.0); Calcium 8.8 mg/dl (8.6-10.3); Creatinine Clr Calc Pharmacy 26.2 ml/min; Globulin 2.1 gm/dl (2.5-4.0); Potassium 5.1 mmol/L (3.5-5.1); Total Protein 5.9 gm/dl (6.0-8.3)
[2024-11-01 07:40] LABS: INR 1.2 (0.9-1.1); Prothrombin Time 12.5 Seconds (9.0-12.0)
[2024-11-01] MEDS: FUROSEMIDE 80 MG TAB PO SCH (09:11)
--- NOTE | 2024-11-01 16:02 | Hospitalist Progress Note ---
"Date of Service November 01, 2024 Assessment & Plan (1) Cirrhosis: (2) Ascites: (3) Heart failure with improved ejection fraction (HFimpEF): (4) Chronic kidney disease, stage III (moderate): (5) Paroxysmal A-fib: (6) CLL (chronic lymphocytic leukemia): Plan 89yo male with PMHx significant for CHF, CKD, afib, hypothyroidism presented to ER for ambulatory dysfunction with recent hospitalization from 10/11-10/16 for R sided pleural effusion with thoracentesis 10/13 (transudative) and generalized weakness. Rehab recommended at that time but he decided to go home. Found to have newly decompensated cirrhosis with ascites. Overall prognosis poor because of advanced age, declining functional status, decompensated cirrhosis, HFpEF, CKD 3-4. At this time planning trial of rehab, follow up with gastroenterology for cirrhosis # Decompensated cirrhosis with portal hypertension, ascites, hepatic hydrothorax. 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 No alcohol history, hepatitis panel negative. -remains volume overloaded and weight increased. increased furosemide to 80 mg po daily with improved response. keep spironolactone at same dose mildly hyperkalemic no room for increase -Cr remains 2.1 which is top of baseline range -continue lactulose and rifaximin - ammonia 63 and unclear whether HE but mental status is better than when I saw him previously - MELD labs reviewed 21 today, INR slightly improved at 1.2, creatinine 2.1, bilirubin 2.9 which is improved compared to last week. -paracentesis/thoracentesis as needed - would give albumin with these because of advanced renal disease -GI consulted this admission, follow up in clinic #Diabetes | hyperglycemia - A1c 6.1, diet controlled -BSG AC/HS with SSI while inpatient and has been acceptable - reviewed BG 11/01 #CKD stage IIIb-IV -Baseline Cr 1.9-2.2 with bump to 2.5 earlier in admission -Renal dose meds/avoid nephrotoxins - Stable -BMP in AM #HFpEF, severe TR, right heart failure | Afib/flutter -Last echocardiogram on 10/11/2024 revealed LVEF at 55 to 60%; moderate mitral regurg -S/p thoracentesis 10/13 that was transudative. 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 -Completed course of cefdinir. -Diuretics as above -Not anticoagulated because of recurrent falls, cirrhosis, thrombocytopenia - risk>benefit. Not currently on B-na, has had hypotension -Follow up with cardiology #Episodes of hypothermia | episodes of hypotension -Reviewed previous temperatures and he's been consistently hypothermic. This is probably related to his advanced age and chronic multiorgan failure (cirrhosis, renal failure, heart failure) -levothyroxine increased -Completed course of hydrocortisone on 10/24. 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 potentially MDS -unremarkable SPEP - hypogammaglobulinemia, UPEP - glomerular proteinuria #Hypothyroidism TSH elevated at 7.414 (improved from 10/10 @ 8.155) last T3 was low, will increase his levothyroxine to 100mcg from 75 daily Repeat TSH in 4-6 weeks outpatient #Left hip hematoma Noted on hip CT on 10/12; stable DVT proph: SCD Disposition: [facility] Admission and Anticipated Discharge Date Admission Date: October 19, 2024 Subjective Maxwell doing okay today no pain he is preoccupied with how his lactulose was delivered this morning which was from a bottle and not a dose cup I assured him it was the correct amount. He is getting ready to use the commode with the OT he has abdominal fullness but it is not bothering him, no nausea or abdominal pain Physical Exam Physical Exam: Last 24h vitals reviewed GEN: sitting up in the chair awake and alert HEENT: pupils equal, sclerae icteric, moist MM RESP: normal WOB, CTAB CV: reg no mrg ABD: soft, distended with moderate nontense ascites, +BT SKIN: warm and dry, no generalized rashes EXT: LE wwp bilateral LE edema - improved since yesterday, right leg is more swollen than left leg which is chronic he did have a duplex 09/03/2024 NEURO: AOx person, place, and situation. Face symmetric, speech normal, moves 4 ext spontaneously and equally Results & Data Results & Data Vital Signs (Past 12 Hours) Vital Signs Pulse Resp BP Pulse Ox O2 Del Method 11/01/24 10:19 Room Air 11/01/24 09:00 113/78 11/01/24 07:51 100 H 16 99/63 L 100 Room Air Laboratory Results MELD labs today MELD is 21 Hemoglobin 10 platelets 74 INR 1.2 Creatinine 2.10 same as yesterday, bilirubin 2.9 and albumin 3.8 which is surprisingly good PG Care Time/CCT Total # of Minutes Spent Total Time Spent with Patient: Total time spent is greater than 50% in coordination of care (as documented) at patient's floor/unit and/or counseling patient: Coding Level of Care Code 52149 SUB INP/OBS CARE 2/35MIN Diagnoses Cirrhosis K74.60 Ascites R18.8 Heart failure with improved ejection fraction (HFimpEF) I50.32 Chronic kidney disease, stage III (moderate) N18.30 Paroxysmal A-fib I48.0 CLL (chronic lymphocytic leukemia) C91.10"
[2024-11-01 19:37] VITALS: RESP 18
--- NOTE | 2024-11-02 12:53 | Hospitalist Progress Note ---
Date of Service November 02, 2024 Assessment & Plan (1) Cirrhosis: (2) Ascites: (3) Heart failure with improved ejection fraction (HFimpEF): (4) Chronic kidney disease, stage III (moderate): (5) Paroxysmal A-fib: (6) CLL (chronic lymphocytic leukemia): Plan 89yo male with PMHx significant for CHF, CKD, afib, hypothyroidism presented to ER for ambulatory dysfunction with recent hospitalization from 10/11-10/16 for R sided pleural effusion with thoracentesis 10/13 (transudative) and generalized weakness. Rehab recommended at that time but he decided to go home. Found to have newly decompensated cirrhosis with ascites. Overall prognosis poor because of advanced age, declining functional status, decompensated cirrhosis, HFpEF, CKD 3-4. At this time planning trial of rehab, follow up with gastroenterology for cirrhosis # Decompensated cirrhosis with portal hypertension, ascites, hepatic hydrothorax. 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 No alcohol history, hepatitis panel negative. -continue lasix 80 mg and spironolactone. K too high to increase spironolactone dose -continue lactulose and rifaximin - ammonia 63 and unclear whether HE but mental status is better than when I saw him previously. Having 1-2 BM most days. - MELD 21 on 11/01. BMP today pending. CMP in AM -paracentesis/thoracentesis as needed - would give albumin with these because of advanced renal disease. Ascites adequately controlled and not hypoxic. -GI consulted this admission, follow up in clinic #HFpEF, severe TR, right heart failure | Afib/flutter -Last echocardiogram on 10/11/2024 revealed LVEF at 55 to 60%; moderate mitral regurg -S/p thoracentesis 10/13 that was transudative. 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 -Completed course of cefdinir. -Diuretics as above -Not anticoagulated because of recurrent falls, cirrhosis, thrombocytopenia - risk>benefit. Not currently on B-na, has had hypotension -Follow up with cardiology #Diabetes | hyperglycemia - A1c 6.1, diet controlled -BSG AC/HS with SSI while inpatient and has been acceptable - reviewed BG 11/02 #CKD stage IIIb-IV -Baseline Cr 1.9-2.2 with bump to 2.5 earlier in admission -Renal dose meds/avoid nephrotoxins -BMP pending #Episodes of hypothermia | episodes of hypotension -Reviewed previous temperatures and he's been consistently hypothermic, relatively hypotensive, often has mild sinus tachycardia. This is related to his advanced age and chronic multiorgan failure (cirrhosis, renal failure, heart failure) -levothyroxine increased -Completed course of hydrocortisone on 10/24. 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 potentially MDS -unremarkable SPEP - hypogammaglobulinemia, UPEP - glomerular proteinuria #Hypothyroidism TSH elevated at 7.414 (improved from 10/10 @ 8.155) last T3 was low, levothyroxine increased 75 --> 100 mcg Repeat TSH in 4-6 weeks outpatient #Left hip hematoma Noted on hip CT on 10/12; stable DVT proph: SCD Disposition: for rehab at [facility] Monday Admission and Anticipated Discharge Date Admission Date: October 19, 2024 Subjective "I haven't seen that doctor Mario for four days" Abdominal swelling seems decreased. No abd pain or nausea Not short of breath Fell asleep once during conversation Looks less jaundiced Physical Exam Physical Exam: Last 24h vitals reviewed GEN: up awake alert in bed HEENT: pupils equal, sclerae icteric, moist MM RESP: normal WOB, CTAB CV: reg no mrg ABD: soft, distended with moderate nontense ascites - decreased last 72h, +BT SKIN: warm and dry, no generalized rashes EXT: LE wwp bilateral LE edema - improved, right leg is more swollen than left leg which is chronic he did have a duplex 09/03/2024 NEURO: AOx person, place, and basic situation. Face symmetric, speech normal, moves 4 ext spontaneously and equally. No tremor/asterixis Results & Data Results & Data Vital Signs (Past 12 Hours) Vital Signs Temp Pulse Resp BP Pulse Ox O2 Del Method 11/02/24 09:19 Room Air 11/02/24 07:32 35.5 C L 105 H 18 101/63 98 Room Air PG Care Time/CCT Total # of Minutes Spent Total Time Spent with Patient: Total time spent is greater than 50% in coordination of care (as documented) at patient's floor/unit and/or counseling patient: Coding Level of Care Code 89998 SUB INP/OBS CARE 2/35MIN Diagnoses Cirrhosis K74.60 Ascites R18.8 Heart failure with improved ejection fraction (HFimpEF) I50.32 Chronic kidney disease, stage III (moderate) N18.30 Paroxysmal A-fib I48.0 CLL (chronic lymphocytic leukemia) C91.10
[2024-11-02 13:46] LABS: BUN Creatinine Ratio 27.2 (10-20); Calcium 8.7 mg/dl (8.6-10.3); Creatinine Clr Calc Pharmacy 23.4 ml/min; Potassium 4.8 mmol/L (3.5-5.1)
[2024-11-03 07:25] LABS: Albumin Globulin Ratio 1.8 (0.9-2); BUN Creatinine Ratio 29.9 (10-20); Bilirubin,Total 2.6 mg/dl (0.2-1.0); Calcium 8.9 mg/dl (8.6-10.3); Creatinine Clr Calc Pharmacy 25.7 ml/min; Globulin 2.2 gm/dl (2.5-4.0); Potassium 4.6 mmol/L (3.5-5.1); Total Protein 6.2 gm/dl (6.0-8.3)
[2024-11-03 07:52] VITALS: BP 98/66; PULSE 103; TEMP 96.1; O2SAT 100
[2024-11-03] MEDS: FUROSEMIDE 40 MG TAB PO SCH ×2 (08:24→08:47)
--- NOTE | 2024-11-03 10:31 | Discharge Summary ---
Discharge Summary Date of Service November 03, 2024 Principal Dx & Hospital Course #1 = Principal Diagnosis (1) Cirrhosis: (2) Ascites: (3) Heart failure with improved ejection fraction (HFimpEF): (4) Chronic kidney disease, stage III (moderate): (5) Paroxysmal A-fib: Plan 89yo male with PMHx significant for CHF, CKD, afib, hypothyroidism presented to ER for ambulatory dysfunction with recent hospitalization from 10/11-10/16 for R sided pleural effusion with thoracentesis 10/13 (transudative) and generalized weakness. Rehab recommended at that time but he decided to go home. Found to have newly decompensated cirrhosis with ascites. Overall prognosis poor because of advanced age, declining functional status, decompensated cirrhosis, HFpEF, CKD 3-4. Maxwell and his family did not want to discuss palliative care at this time. He is DNR/DNI. At this time planning trial of rehab, follow up with gastroenterology for cirrhosis, Continue following up with heart failure clinic at [facility] and with Dr. Montaño his drop wirer # Decompensated cirrhosis with portal hypertension, ascites, hepatic hydrothorax. 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 No alcohol history, hepatitis panel negative. -continue lasix 40 mg alternating with 80 mg and spironolactone. K too high to increase spironolactone dose -continue lactulose and rifaximin - ammonia 63 and unclear whether HE but mental status is better than when I saw him previously. Having 1-2 BM most days. - MELD 21 on 11/01. bilirubin improved compared to earlier in hospital stay. -paracentesis/thoracentesis as needed - would give albumin with these because of advanced renal disease. Ascites adequately controlled and not hypoxic. -GI consulted this admission, follow up in clinic - please check CMP weekly and as needed for diuretic adjustment. monitor weight 3 times a week, monitor ascites and leg edema and adjust diuretics accordingly #HFpEF, severe TR, right heart failure | Afib/flutter -Last echocardiogram on 10/11/2024 revealed LVEF at 55 to 60%; moderate mitral regurg -S/p thoracentesis 10/13 that was transudative. 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 -Completed course of cefdinir. -Diuretics as above -Not anticoagulated because of recurrent falls, cirrhosis, thrombocytopenia - risk>benefit. Not currently on B-na, has had hypotension -Follow up with cardiology #Diabetes | hyperglycemia - A1c 6.1, diet controlled - Has only required minimal as needed insulin in the hospital #CKD stage IIIb-IV -Baseline Cr 1.9-2.2 with bump to 2.5 earlier in admission -Renal dose meds/avoid nephrotoxins - likely will need to tolerate creatinine in the low twos in order to have effective diuresis for his heart failure and cirrhosis #Episodes of hypothermia | episodes of hypotension -Reviewed previous temperatures and he's been consistently hypothermic, relatively hypotensive, often has mild sinus tachycardia. This is related to his advanced age and chronic multiorgan failure (cirrhosis, renal failure, heart failure) -levothyroxine increased -Completed course of hydrocortisone on 10/24. 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 potentially MDS -unremarkable SPEP - hypogammaglobulinemia, UPEP - glomerular proteinuria #Hypothyroidism TSH elevated at 7.414 (improved from 10/10 @ 8.155) last T3 was low, levothyroxine increased 75 --> 100 mcg Repeat TSH in 4-6 weeks outpatient #Left hip hematoma Noted on hip CT on 10/12; stable, asymptomatic at this point Disposition: for rehab at [facility] Notes For Next Care Provider Lasix 40 mg a day was inadequate but 80 daily is too much for blood pressure and renal function. Trying 40 mg alternating with 80 mg along with spironolactone. Relatively high potassium has prevented increase in spironolactone dose. Admission HPI Per Admitting Provider 89 year old male with a past medical history of HFimEF, DMT2, HTN, CKD, CLL, hypothyroidism, a fib on Eliquis that is presenting with ambulatory dysfunction. Was admitted from 10/11-10/16 with APPLE, R sided pleural effusion s/p thoracentesis that showed transudative fluid. Was recommended that he go to rehab after that admission, but declined. Now back presenting with son as has been having trouble with ADLs at home. No increased weakness or no symptoms since leaving the hospital. He states that he was hoping there would be improvement in his weakness when he left, but this was not the case. Lives alone in a 2 story house, although states he mainly states on the 1st floor. ED Course Significant for: K= 5.7, Creatine= 2.24 (recent baseline 1.9-2.2). Plts= 39. CXR with improvement on right side pleural effusion when compared with prior. Discharge Exam Last 24h vitals reviewed GEN: up awake alert in bed HEENT: pupils equal, sclerae icteric, moist MM RESP: normal WOB, CTAB except absent R base and [place]. DTP on right at least [facility] up CV: reg no mrg ABD: soft, distended with moderate nontense ascites - decreased since several days ago SKIN: warm and dry, no generalized rashes EXT: LE wwp bilateral LE edema - improved, right leg is more swollen than left leg which is chronic he did have a duplex 09/03/2024 NEURO: AOx person, place, and basic situation. Face symmetric, speech normal, moves 4 ext spontaneously and equally. No tremor/asterixis Discharge Plan Discharge Items Patient Disposition: Transfer Intermediate Fac Reason For Visit: FAILURE TO THRIVE Discharge Diagnosis: Cirrhosis, Heart failure, CKD 3-4, Afib Condition on Discharge: Fair Activity: Per Instructions section Weightbearing: Full weightbearing Non-emergency contact: Primary Care Provider, Advertising Agency Manager and G astroenterologist Call non-emergency contact if: you have any medication questions, your symptoms worsen, your pain is not controlled, your pain is concerning for you and you have a fever Follow-up/Referrals: Natalio Bauer DO [Physician] - Raffi Alva MD [Primary Care Provider] - Diet: Heart Healthy and Low Sodium (2gm) Addtl Attending Provider Instructions: You have been hospitalized for weakness and found to have new cirrhosis which required "tap" to remove fluid from your abdomen which is related to fluid overload from cirrhosis and heart failure Diuretic adjustment for cirrhosis as follows: -Bumex STOPPED -Lasix NEW medication - started and increased to 80 mg daily alternating with 40 mg daily -Spironolactone NEW medication- 50mg daily Lactulose 30g bid and rifaximin bid to prevent confusion related to liver disease and prevent constipation Afib - apixaban not resumed because of falls and high bleeding risk (thrombocytopenia, coagulopathy) Therapy evaluations were undertaken and recommend rehab. Case management has assisted with making arrangements for acute rehab/prison at [facility]. You should have follow up with primary care, GI at discharge as well as cardiology. Please return to the ER with any fever/chills, increased abdominal distension/concerning weight gain, confusion, or for any other symptoms concerning for you. Cirrhosis and HFpEF / right heart failure with ascites and right pleural effusion Please check CMP, INR weekly. Low sodium diet, weight check 3x week adjust diuretics accordingly Paracentesis or thoracentesis PRN with IR at [facility] PT and OT evaluate and treat Monitor blood glucose periodically. Last A1c 6.1%. In hospital has needed minimal PRN aspart insulin Pending Studies at Discharge: No Stand-Alone Forms: My [facility] Skilled Items Patient informed of condition?: Yes DNR: Yes Discharge Level of Care: Skilled Communicable Disease: No Discharge Prognosis: Stable Lines: None Urinary Catheter: No Medications and DC Order Prescriptions: New spironolactone 25 mg Tablet 50 mg PO QAM Qty: 60 0RF Xifaxan 550 mg Tablet 550 mg PO BID Qty: 0 0RF lactulose 10 gram/15 mL Solution 30 g PO BID17 Qty: 0 0RF furosemide 40 mg tablet 40 mg PO Q OTHER DAY Qty: 0 0RF levothyroxine [Synthroid] 100 mcg Tablet 100 mcg PO DAILYBB Qty: 0 0RF furosemide 80 mg tablet 80 mg PO Q OTHER DAY Qty: 30 0RF Continued (DME) lancets [OneTouch Delica Plus Lancet] 33 gauge misc See Rx Instructions .Route Qty: 100 1RF Rx Instructions: Check blood sugar once a day (DME) OneTouch Verio test strips Strip See Rx Instructions .Route Qty: 100 1RF Rx Instructions: Check blood sugar once a day mecobalamin (vitamin B12) 5,000 mcg tablet,disintegrating 2,500 mcg PO Q OTHER DAY Qty: 1 0RF buspirone 5 mg tablet 5 mg PO HS PRN (Reason: sleep) Qty: 30 5RF Hold Instructions: not helping for sleep Ocuvite Adult 50 Plus 250 mg (90 mg-160 mg) capsule 1 cap PO DAILY Discontinued levothyroxine 75 mcg tablet 75 mcg PO DAILY Qty: 90 3RF Eliquis 2.5 mg tablet 2.5 mg PO BID Qty: 180 3RF polyethylene glycol 3350 [Miralax] 17 gram/dose powder 17 g PO DAILY PRN (Reason: constipation) Qty: 238 0RF cefdinir 300 mg capsule 300 mg PO BID 5 Days Qty: 10 0RF Rx Instructions: STARTED 10/16/24 FOR 5 DAYS docusate sodium [Colace] 100 mg capsule 100 mg PO DAILY bumetanide 1 mg tablet 1 mg PO DIRECTED Rx Instructions: PER EXT MED HX: PRN NEEDED FOR SWELLING. PER PT'S SON: "NOT SURE IF Q OTHER DAY OR DAILY". Discharge Orders: Discharge Order (Routine); Ordered 11/03/24 Ordered By: Kathie Davison Admission Data Admit Date/Time: 10/19/24 17:14 Attending Provider: Kathie Davison Admit Provider: Anjana Bahena Primary Care Provider: Raffi Alva V. [facility] Dow; [facility]; [place]; Ja Vogel I Hospital Stay Data Consultations 10/19/24 17:47 ED Decision to Admit Stat 10/25/24 15:16 Consult Gastroenterology Routine Diagnostic Imagining Performed 10/24/24 10:40 IR paracentesis abd w/img US Urgent Pending Results Patient Have Any Pending Studies at Discharge: No Discharge Instructions Given to Patient (Per Discharging Provider) You have been hospitalized for weakness and found to have new cirrhosis which required "tap" to remove fluid from your abdomen which is related to fluid overload from cirrhosis and heart failure Diuretic adjustment for cirrhosis as follows: -Bumex STOPPED -Lasix NEW medication - started and increased to 80 mg daily alternating with 40 mg daily -Spironolactone NEW medication- 50mg daily Lactulose 30g bid and rifaximin bid to prevent confusion related to liver disease and prevent constipation Afib - apixaban not resumed because of falls and high bleeding risk (thrombocytopenia, coagulopathy) Therapy evaluations were undertaken and recommend rehab. Case management has assisted with making arrangements for acute rehab/prison at [facility]. You should have follow up with primary care, GI at discharge as well as cardiology. Please return to the ER with any fever/chills, increased abdominal distension/concerning weight gain, confusion, or for any other symptoms concerning for you. Cirrhosis and HFpEF / right heart failure with ascites and right pleural effusion Please check CMP, INR weekly. Low sodium diet, weight check 3x week adjust diuretics accordingly Paracentesis or thoracentesis PRN with IR at [facility] PT and OT evaluate and treat Monitor blood glucose periodically. Last A1c 6.1%. In hospital has needed minimal PRN aspart insulin Total Time Total Time Spent Total Time Spent (In Minutes): I personally spent: 40 minutes today on clinical care activities including: reviewing chart notes and vital signs reviewing labs discussion with manager care examining and counseling the patient writing orders writing prescriptions, discharge instructions documentation Coding Level of Care Code 84858 INP/OBS DISCH >30 MIN Diagnoses Cirrhosis K74.60 Ascites R18.8 Heart failure with improved ejection fraction (HFimpEF) I50.32 Chronic kidney disease, stage III (moderate) N18.30 Paroxysmal A-fib I48.0
[2024-11-04] MEDS ORDERED: FUROSEMIDE 80 MG TAB PO SCH (09:00)
== END 2024-11-03 15:15 | DRG 433 ==
LOC: ED 14:35 → INTOOBSV 17:14 → SUATTDRO 17:14 → 3W 17:14